=== PATIENT | female | born 1960 | race Caucasian/White ===

== ENCOUNTER 2017-05-17 13:13 | Emergency (ER) | payer MEDICARE, BC ==
[~2017-05-17 13:13] MED LIST: DICYCLOMINE; TPN; VICODIN ES TAB1 EACH; Z DIFLUCAN; Z REMERON; Z REMERON PO; Z.0.ALLEGRA60 MG; Z.0.ATIVAN2 MG PO; Z.0.CARAFATE1 GM/10 PO; Z.0.CYMBALTA30 MG PO; Z.0.DIOVAN80 MG PO; Z.0.FLEXERIL10 MG; Z.0.LOVASTATIN20 MG PO; Z.0.NORVASC10 MG; Z.0.PHENERGAN25 M1; Z.0.TOPAMAX50 MG PO; Z.0.ZOFRAN4 MG; [UNRECOGNIZED DRUG - OTHER]
--- OUTSIDE RECORDS SUMMARY | 2017-05-17 13:16 | XMS REPORT ---
Author Author [facility] Address Unknown Phone Unavailable Care Team Providers Care Pattern Technician Name Role Phone JOSIE HERNANDEZ Unavailable Unavailable JORGE HERNANDEZ Unavailable Unavailable Problems This patient has no known problems. Allergies, Adverse Reactions, Alerts This patient has no known allergies or adverse reactions. Medications This patient has no known medications. Results Test Description Test Time Test Comments Text Results Atomic Results Result Comments US RENAL RETROPERITONEAL COMP [place] [address] Patient Name: FELICITA CERON MR #: [id number] : 1960 Age/Sex: 56/F Req #: [id number] [facility] Physician: Ordered by: JOSIE HERNANDEZ DO Report #: [id number] Location: US Room/Bed: Procedure: [id number] US/US RENAL RETROPERITONEAL COMP Exam Date: 12/05/16 Exam Time: 1602 REPORT STATUS: Signed PROCEDURE : US RETROPERITONEAL ( KIDNEY ). COMPARISON: CT abdomen/pelvis 12/23/13. INDICATIONS: cystitis and hematuria TECHNIQUE: Rogers-scale and color sonographic images of the bilateral kidneys and bladder where obtained in transverse and longitudinal planes. FINDINGS: RIGHT KIDNEY: Absent. No mass in the nephrectomy bed. LEFT KIDNEY: Measures 11.2 cm in length. Cysts: None Solid masses: None Stones: None Hydronephrosis: None Echogenicity: None Perinephric fluid collection: None Bladder: Under distended but otherwise normal. The left ureteral jet is visualized. The right ureteral jet is not visualized. No free fluid in the pelvis. Survey images of the liver demonstrate no focal abnormality. CONCLUSION: Normal sonographic appearance of the left kidney. Right nephrectomy. No sonographic abnormalities of the bladder. Dictated by: Case Damon M.D. on 12/05/2016 at 17:38 Electronically approved by: Case Damon M.D. on 12/05/2016 at 17:38 Dictated By: CASE DAMON MD 37 Transcribed By: ANJANA on 12/05/161737 COPY TO: JOSIE HERNANDEZ DO MAMMOGRAPHY DIGITAL DX BILAT [place] [address] Patient Name: FELICITA CERON MR #: [id number] : 1960 Age/Sex: 56/F Req #: [id number] Adm Physician: Ordered by: HERNANDEZ ANDREW DO Report #: [id number] Location: MAMMO Room/Bed: Procedure: [id number] MG/MAMMOGRAPHY DIGITAL DX BILAT Exam Date: 06/02/16 Exam Time: 1125 REPORT STATUS: Signed THIS REPORT HAS BEEN AMENDED. #[id number] - [id number] #BILATERAL DIGITAL DIAGNOSTIC MAMMOGRAM WITH CAD: 06/02/2016 No prior exams were available for comparison. Current study contains 5 films. The tissue of both breasts is predominantly fatty. Current study was also evaluated with a Computer Aided Detection (CAD) system. There is an implantable port present overlying the left upper breast/chest wall. No significant masses, calcifications, or other findings are seen in either breast. IMPRESSION: BENIGN There is no mammographic evidence of malignancy. A 1 year screening mammogram is recommended. The patient will be notified by letter of the results. Elvis Martinez Jr., D.O. cw/:06/02/2016 13:08:38 [employer]: Kamille CHUNG)([place]), [facility] letter sent: Normal Exam Mammogram BI-RADS: 2 Benign AMENDMENT : 09/26/2016 Elvis Martinez Jr., D.O. - Comparison to outside mammograms dated 06/08/2015 from [facility] [place] is now possible as they have become available. There is no significant interval change from the old studies. There is no evidence of malignancy. Amended BI-RADS: 2 Benign letter sent: Compared to Prior B9 Dictated By: ELVIS MARTINEZ DO 1308 Transcribed By: KRISTOFER on 09/26/16 1425 COPY TO: JORGE HERNANDEZ DO
[2017-05-17] MEDS ORDERED: PROMETHAZINE HCL (IM) 25 MG/ML VIAL IM ONE (13:30)
[2017-05-17] MEDS ORDERED: SODIUM CHLORIDE 0.9% 1000ML 1,000 ML ONE (13:30)
[2017-05-17] MEDS ORDERED: KETOROLAC TROMETHAMINE 30 MG/ML VIAL IV ONE (13:30)
[2017-05-17] MEDS ORDERED: TEGRETOL200 MG PO (14:53)
[2017-05-17] MEDS ORDERED: ASPIR 8181 MG (15:25)
[2017-05-17] MEDS ORDERED: PROVENTIL HFA6.7 GM (15:25)
[2017-05-17] MEDS ORDERED: B-12500 MCG (15:25)
[2017-05-17] MEDS ORDERED: normal saline (15:25)
[2017-05-17] MEDS ORDERED: iron (15:25)
[2017-05-17] MEDS ORDERED: PLAQUENIL200 MG PO (15:25)
[2017-05-17 15:32] VITALS: BP 127/69
== END 2017-05-17 15:05 | disposition home or self-care (01) ==
LOC: FSED 13:13
DX: G43.001 Migraine without aura, not intractable, with status migrainosus (principal); R11.0 Nausea; I10 Essential (primary) hypertension
CPT/HCPCS: 96360; 96374; 99283; J2550; J7030

== ENCOUNTER → 2017-07-07 | Outpatient (CLI) | payer MEDICARE, BC ==
[~2017-07-07] MED LIST changes: +ASPIR 8181 MG; +B-12500 MCG; +PLAQUENIL200 MG PO; +PROVENTIL HFA6.7 GM; +TEGRETOL200 MG PO; +iron; +normal saline
== END ==
LOC: MAMMO 13:42
PROVIDERS: ATTEND Family Medicine
DX: Z12.31 Encounter for screening mammogram for malignant neoplasm of breast (principal)
CPT/HCPCS: 77067

== ENCOUNTER 2017-10-26 17:38 | Inpatient (IN) | payer MEDICARE, BC ==
[~2017-10-26] VITALS: Ht 162.6 cm; Wt 7.3 kg
[~2017-10-26 17:38] MED LIST changes: -Z REMERON
[2017-10-26 20:51] VITALS: BP 172/83
[2017-10-26] MEDS ORDERED: MEROPENEM 1GRAM 1 GM in SODIUM CHLORIDE 0.9% 100 ML 100 ML IV SCH (21:00)
[2017-10-26 21:18] LABS: BILIRUBIN,URINE 1+ (NEGATIVE); CLARITY,URINE SL CLOUDY (CLEAR); COLOR,URINE ORANGE (YELLOW); KETONES,URINE TRACE (NEGATIVE); LEUKOCYTE ESTERASE ,URINE TRACE (NEGATIVE); NITRITE,URINE POSITIVE (NEGATIVE); PROTEIN,URINE DIPSTICK 1+ (NEGATIVE); URINE UROBILINOGEN 8 mg/dL (0.2 - 1)
[2017-10-26 21:29] LABS: BACTERIA,URINE MANY /HPF; EPITHELIAL CELLS,URINE FEW /LPF; WBC,URINE (MAN) 0-5 /HPF (0-5)
[2017-10-26 21:30] VITALS: BP 133/88
[2017-10-26 21:38] VITALS: BP 172/83
[2017-10-26 21:39] LABS: BASOPHILS % 0.4 % (0.0-1.0); EOSINOPHILS # (AUTO) 0.2 (0.0-0.4); EOSINOPHILS % 2.8 % (0.0-6.0); HEMATOCRIT 31.2 % (34.2-44.1); HEMOGLOBIN 9.9 g/dL (12.0-16.0); LYMPHOCYTES # (AUTO) 1.3 (1.0-3.2); LYMPHOCYTES % 19.6 % (18.0-39.1); MEAN CORPUSCULAR HEMOGLOBIN 27.3 pg (28-32); MEAN CORPUSCULAR HGB CONC 31.7 g/dL (31-35); MEAN CORPUSCULAR VOLUME 86.2 fL (81-99); MONOCYTES # (AUTO) 0.6 (0.2-0.8); MONOCYTES % 8.1 % (4.4-11.3); NEUTROPHILS # (AUTO) 4.6 (2.1-6.9); NEUTROPHILS % 68.5 % (38.7-80.0); PLATELET COUNT 451 x10e3/uL (140-360); RED BLOOD COUNT 3.62 x10e6/uL (3.6-5.1); RED CELL DISTRIBUTION WIDTH 13.2 % (11.7-14.4)
[2017-10-26 21:56] LABS: ALANINE AMINOTRANSFERASE 15 IU/L (0-55); ALBUMIN 2.7 g/dL (3.5-5.0); ALBUMIN/GLOBULIN RATIO 0.7 (0.8-2.0); ALKALINE PHOSPHATASE 121 IU/L (40-150); ANION GAP 12.7 mmol/L (8-16); BLOOD UREA NITROGEN 13 mg/dL (7-26); BUN/CREATININE RATIO 15 (6-25); CALCIUM 9.2 mg/dL (8.4-10.2); CARBON DIOXIDE 26 mmol/L (22-29); CHLORIDE 100 mmol/L (98-107); CREATININE, SERUM 0.86 mg/dL (0.57-1.11); EST GLOMERULAR FILTRATION RATE > 60 ML/MIN (60-); GLUCOSE 84 mg/dL (74-118); POTASSIUM 3.7 mmol/L (3.5-5.1); SODIUM 135 mmol/L (136-145)
[2017-10-26] MEDS ORDERED: ATIVAN2 MG PO (21:56)
[2017-10-26] MEDS ORDERED: LOSARTAN POTASS25 MG PO (21:56)
[2017-10-26 22:00] VITALS: BP 172/83
[2017-10-26 22:32] LABS: ERYTHROCYTE SEDIMENTATION RATE 73 mm/hr (0-20)
[2017-10-26] MEDS: MEROPENEM 1 GM VIAL IV SCH (23:29)
[2017-10-27] VITALS (10 sets, daily range): BP systolic 97–142; BP diastolic 50–88
[2017-10-27] MEDS ORDERED: NON-FORMULARY MEDICATION (Lorazepam (Ativan) 2 MG) PO SCH (00:45)
[2017-10-27] MEDS ORDERED: DICYCLOMINE HCL 10 MG CAP PO PRN (05:15)
[2017-10-27] MEDS ORDERED: ONDANSETRON HCL 4 MG ORAL DISINTEGRATING TAB PO PRN (05:15)
[2017-10-27] MEDS ORDERED: CARBAMAZEPINE 200 MG TAB PO SCH (09:00)
[2017-10-27] MEDS: LOSARTAN POTASSIUM 25 MG TAB PO SCH ×2 (09:09→17:13)
[2017-10-27] MEDS: ASPIRIN 81 MG CHEW TAB PO SCH (09:09)
[2017-10-27] MEDS: MEROPENEM 1 GM VIAL IV SCH ×2 (09:09→20:53)
[2017-10-27] MEDS: HYDROXYCHLOROQUINE SULFATE 200 MG TAB PO SCH (09:10)
[2017-10-27] MEDS: AMLODIPINE BESYLATE 10 MG TAB PO SCH (09:10)
[2017-10-27] MEDS: CARBAMAZEPINE 100 MG TAB PO SCH ×2 (09:10→17:13)
[2017-10-27] MEDS: SIMVASTATIN 20 MG TAB PO SCH (09:10)
[2017-10-27] MEDS: HYDROCODONE/APAP 10MG-325MG TAB PO PRN ×2 (11:15→19:30)
--- NOTE | 2017-10-27 15:20 | Consultation ---
DATE OF CONSULTATION: REASON FOR CONSULTATION: UTI and pyelonephritis. HISTORY OF PRESENT ILLNESS: This patient who is well known to me. She is a 57-year-old female. She came to my office yesterday complaining of fever and chills, nausea, not feeling well. The patient who has history of recurrent UTI before. She is coming with above complaint. The patient said that she is feeling really bad. When she was in my office, she was bit hypotensive, sent to be admitted. The patient has been on oral antibiotic, ciprofloxacin before, recently without any improvement. So, patient was sent to the emergency room. The patient is currently being admitted. She is lying in bed comfortably. She just feeling nauseous and having pain. PAST MEDICAL HISTORY: Hypertension, antiphospholipid lipid syndrome, Hewitt's esophageal disease, gastroparesis, and scleroderma. PAST SURGICAL HISTORY: , cholecystectomy, hysterectomy, hip placement. ALLERGIES: CEPHALOSPORINS, PENICILLIN, AND SULFA. SOCIAL HISTORY: There is no smoking, drug abuse, or alcohol abuse. . FAMILY HISTORY: Noncontributory. REVIEW OF SYSTEMS: Significant for pain in the lower part of the abdomen. Urgency and frequency, and urine looked dark she said. At present time, fourteen-point review of system all within normal limits except for what was mentioned above. MEDICATION: List reviewed. Her chart reviewed. I have been seeing this patient since December 2016 with recurrent UTI. HOME MEDICATION LIST: She is currently on Tegretol, Zocor, Plaquenil, Norvasc, aspirin, Cozaar, and Zofran. LABORATORY DATA: White count 6.78, hemoglobin 9.9, and her platelet 158. Sodium 135, potassium 3.7, and creatinine 0.86. PHYSICAL EXAMINATION GENERAL: She is currently alert and oriented. Does not seem to be in acute distress. VITALS: Stable. Currently afebrile. HEENT: She is not icteric. NECK: Supple. CHEST: Clear. HEART: S1 and S2. No murmur. ABDOMEN: Soft. Bowel sounds present. No tenderness. EXTREMITIES: No edema. IMPRESSION: Concern about pyelonephritis, urinary tract infection in a patient who have scleroderma, allergic to several antibiotics. We put her on meropenem. Obtain urine cultures and blood cultures. Recheck CBC. Recheck Chem panel. For dehydration, we will give normal saline at 50 mL an hour. Other medical problems are stable. Continue all home medication and diet as tolerated. We will follow. Job#: [id number] VAS
[2017-10-27] MEDS: SODIUM CHLORIDE 0.9% 1000ML 1,000 ML IV SCH (16:28)
[2017-10-27] MEDS: VANCOMYCIN 1GM/NS 250 ML 250 ML IV SCH (16:28)
[2017-10-27] MEDS: DULOXETINE HCL 30 MG DELAYED RELEASE PO SCH (20:53)
[2017-10-27] MEDS: MIRTAZAPINE 15 MG TAB PO SCH (20:53)
[2017-10-28] VITALS (7 sets, daily range): BP systolic 119–135; BP diastolic 56–76
[2017-10-28] MEDS: VANCOMYCIN 1GM/NS 250 ML 250 ML IV SCH ×2 (03:21→17:25)
[2017-10-28] MEDS: MEROPENEM 1 GM VIAL IV SCH ×2 (09:41→21:00)
[2017-10-28] MEDS: SODIUM CHLORIDE 0.9% 1000ML 1,000 ML IV SCH ×3 (09:41→21:19)
[2017-10-28] MEDS: CARBAMAZEPINE 100 MG TAB PO SCH ×2 (09:53→16:25)
[2017-10-28] MEDS: HYDROXYCHLOROQUINE SULFATE 200 MG TAB PO SCH (09:53)
[2017-10-28] MEDS: SIMVASTATIN 20 MG TAB PO SCH (09:53)
[2017-10-28] MEDS: AMLODIPINE BESYLATE 10 MG TAB PO SCH (09:53)
[2017-10-28] MEDS: LOSARTAN POTASSIUM 25 MG TAB PO SCH ×2 (09:53→16:25)
[2017-10-28] MEDS: ASPIRIN 81 MG CHEW TAB PO SCH (09:53)
[2017-10-28] MEDS: ACETAMINOPHEN 325 MG TAB PO PRN (09:55)
[2017-10-28] MEDS: HYDROCODONE/APAP 10MG-325MG TAB PO PRN ×2 (09:55→16:38)
[2017-10-28] MEDS: MIRTAZAPINE 15 MG TAB PO SCH (21:00)
[2017-10-28] MEDS: DULOXETINE HCL 30 MG DELAYED RELEASE PO SCH (21:00)
[2017-10-29] VITALS: BP 113/58
[2017-10-29] MEDS: VANCOMYCIN 1GM/NS 250 ML 250 ML IV SCH ×2 (03:42→15:56)
[2017-10-29 04:00] VITALS: BP 124/58
[2017-10-29 08:00] VITALS: BP 127/60
[2017-10-29] MEDS: HYDROCODONE/APAP 10MG-325MG TAB PO PRN ×2 (09:28→22:19)
[2017-10-29] MEDS: LOSARTAN POTASSIUM 25 MG TAB PO SCH ×2 (09:42→17:10)
[2017-10-29] MEDS: MEROPENEM 1 GM VIAL IV SCH ×2 (09:42→21:00)
[2017-10-29] MEDS: AMLODIPINE BESYLATE 10 MG TAB PO SCH (09:42)
[2017-10-29] MEDS: CARBAMAZEPINE 100 MG TAB PO SCH ×2 (09:42→17:10)
[2017-10-29] MEDS: HYDROXYCHLOROQUINE SULFATE 200 MG TAB PO SCH (09:42)
[2017-10-29] MEDS: ASPIRIN 81 MG CHEW TAB PO SCH (09:42)
[2017-10-29] MEDS: SIMVASTATIN 20 MG TAB PO SCH (09:43)
[2017-10-29] MEDS ORDERED: CEFTRIAXONE SOD 1 GM VIAL IV SCH (11:45)
[2017-10-29 12:00] VITALS: BP 121/59
[2017-10-29 16:00] VITALS: BP 132/74
[2017-10-29 20:00] VITALS: BP 128/74
[2017-10-29] MEDS: DULOXETINE HCL 30 MG DELAYED RELEASE PO SCH (21:00)
[2017-10-29] MEDS: MIRTAZAPINE 15 MG TAB PO SCH (21:00)
[2017-10-29] MEDS: SODIUM CHLORIDE 0.9% 1000ML 1,000 ML IV SCH (22:19)
[2017-10-30 04:00] VITALS: BP 109/55
[2017-10-30] MEDS: VANCOMYCIN 1GM/NS 250 ML 250 ML IV SCH ×2 (04:00→16:58)
[2017-10-30 05:49] LABS: BASOPHILS % 0.8 % (0.0-1.0); EOSINOPHILS # (AUTO) 0.2 (0.0-0.4); EOSINOPHILS % 5.6 % (0.0-6.0); HEMATOCRIT 26.2 % (34.2-44.1); HEMOGLOBIN 8.1 g/dL (12.0-16.0); LYMPHOCYTES # (AUTO) 0.9 (1.0-3.2); LYMPHOCYTES % 24.7 % (18.0-39.1); MEAN CORPUSCULAR HEMOGLOBIN 26.8 pg (28-32); MEAN CORPUSCULAR HGB CONC 30.9 g/dL (31-35); MEAN CORPUSCULAR VOLUME 86.8 fL (81-99); MONOCYTES # (AUTO) 0.4 (0.2-0.8); MONOCYTES % 10.5 % (4.4-11.3); NEUTROPHILS # (AUTO) 2.2 (2.1-6.9); NEUTROPHILS % 57.9 % (38.7-80.0); PLATELET COUNT 356 x10e3/uL (140-360); RED BLOOD COUNT 3.02 x10e6/uL (3.6-5.1); RED CELL DISTRIBUTION WIDTH 13.3 % (11.7-14.4)
[2017-10-30 06:20] LABS: ANION GAP 10.4 mmol/L (8-16); BLOOD UREA NITROGEN 9 mg/dL (7-26); BUN/CREATININE RATIO 14 (6-25); CALCIUM 8.2 mg/dL (8.4-10.2); CARBON DIOXIDE 27 mmol/L (22-29); CHLORIDE 110 mmol/L (98-107); CREATININE, SERUM 0.65 mg/dL (0.57-1.11); EST GLOMERULAR FILTRATION RATE > 60 ML/MIN (60-); GLUCOSE 83 mg/dL (74-118); POTASSIUM 3.4 mmol/L (3.5-5.1); SODIUM 144 mmol/L (136-145)
[2017-10-30 07:15] VITALS: BP 120/59
[2017-10-30 08:00] VITALS: BP 120/59
[2017-10-30] MEDS: HYDROXYCHLOROQUINE SULFATE 200 MG TAB PO SCH (09:15)
[2017-10-30] MEDS: AMLODIPINE BESYLATE 10 MG TAB PO SCH (09:15)
[2017-10-30] MEDS: ASPIRIN 81 MG CHEW TAB PO SCH (09:15)
[2017-10-30] MEDS: SIMVASTATIN 20 MG TAB PO SCH (09:15)
[2017-10-30] MEDS: CARBAMAZEPINE 100 MG TAB PO SCH ×2 (09:15→17:04)
[2017-10-30] MEDS: MEROPENEM 1 GM VIAL IV SCH ×2 (09:15→21:00)
[2017-10-30] MEDS: LOSARTAN POTASSIUM 25 MG TAB PO SCH ×2 (09:15→17:04)
[2017-10-30 12:02] VITALS: BP 146/63
[2017-10-30] MEDS: HYDROCODONE/APAP 10MG-325MG TAB PO PRN ×2 (13:15→20:25)
[2017-10-30] MEDS: SODIUM CHLORIDE 0.9% 1000ML 1,000 ML IV SCH (13:16)
[2017-10-30 16:08] VITALS: BP 137/62
[2017-10-30 20:00] VITALS: BP 129/72
[2017-10-30] MEDS: MIRTAZAPINE 15 MG TAB PO SCH (21:00)
[2017-10-30] MEDS: DULOXETINE HCL 30 MG DELAYED RELEASE PO SCH (21:00)
[2017-10-31] VITALS (8 sets, daily range): BP systolic 110–140; BP diastolic 63–73
[2017-10-31] MEDS: SODIUM CHLORIDE 0.9% 1000ML 1,000 ML IV SCH ×2 (03:28→18:06)
[2017-10-31] MEDS: VANCOMYCIN 1GM/NS 250 ML 250 ML IV SCH (03:47)
[2017-10-31] MEDS: CARBAMAZEPINE 100 MG TAB PO SCH ×2 (08:29→16:32)
[2017-10-31] MEDS: SIMVASTATIN 20 MG TAB PO SCH (08:29)
[2017-10-31] MEDS: MEROPENEM 1 GM VIAL IV SCH ×2 (08:29→20:09)
[2017-10-31] MEDS: LOSARTAN POTASSIUM 25 MG TAB PO SCH ×2 (08:29→16:32)
[2017-10-31] MEDS: AMLODIPINE BESYLATE 10 MG TAB PO SCH (08:29)
[2017-10-31] MEDS: ASPIRIN 81 MG CHEW TAB PO SCH (08:29)
[2017-10-31] MEDS: HYDROXYCHLOROQUINE SULFATE 200 MG TAB PO SCH (08:29)
[2017-10-31] MEDS: HYDROCODONE/APAP 10MG-325MG TAB PO PRN (18:06)
[2017-10-31] MEDS: MIRTAZAPINE 15 MG TAB PO SCH (20:09)
[2017-10-31] MEDS: DULOXETINE HCL 30 MG DELAYED RELEASE PO SCH (20:09)
[2017-10-31] MEDS: LORAZEPAM 1 MG TAB PO PRN (22:00)
[2017-11-01] VITALS (7 sets, daily range): BP systolic 106–132; BP diastolic 54–68
[2017-11-01] MEDS: VANCOMYCIN 750MG/NS 150ML IVPB 150 ML IV SCH ×2 (03:21→16:00)
[2017-11-01] MEDS: SODIUM CHLORIDE 0.9% 1000ML 1,000 ML IV SCH ×2 (06:02→18:24)
[2017-11-01] MEDS: ACETAMINOPHEN 325 MG TAB PO PRN (06:17)
[2017-11-01 07:11] LABS: ALANINE AMINOTRANSFERASE 39 IU/L (0-55); ALBUMIN 2.1 g/dL (3.5-5.0); ALBUMIN/GLOBULIN RATIO 0.7 (0.8-2.0); ALKALINE PHOSPHATASE 134 IU/L (40-150); ANION GAP 10.8 mmol/L (8-16); CALCIUM 8.3 mg/dL (8.4-10.2); CARBON DIOXIDE 29 mmol/L (22-29); CHLORIDE 104 mmol/L (98-107); CREATININE, SERUM 0.64 mg/dL (0.57-1.11); EST GLOMERULAR FILTRATION RATE > 60 ML/MIN (60-); GLUCOSE 81 mg/dL (74-118); POTASSIUM 3.8 mmol/L (3.5-5.1); SODIUM 140 mmol/L (136-145)
[2017-11-01 07:22] LABS: BLOOD UREA NITROGEN 8 mg/dL (7-26); BUN/CREATININE RATIO 13 (6-25)
[2017-11-01 07:23] LABS: BASOPHILS % 0.3 % (0.0-1.0); EOSINOPHILS # (AUTO) 0.3 (0.0-0.4); EOSINOPHILS % 6.6 % (0.0-6.0); HEMATOCRIT 26.2 % (34.2-44.1); HEMOGLOBIN 8.2 g/dL (12.0-16.0); LYMPHOCYTES % 27.1 % (18.0-39.1); MEAN CORPUSCULAR HGB CONC 31.3 g/dL (31-35); MEAN CORPUSCULAR VOLUME 86.2 fL (81-99); MONOCYTES # (AUTO) 0.4 (0.2-0.8); MONOCYTES % 9.6 % (4.4-11.3); NEUTROPHILS # (AUTO) 2.1 (2.1-6.9); NEUTROPHILS % 55.9 % (38.7-80.0); PLATELET COUNT 358 x10e3/uL (140-360); RED BLOOD COUNT 3.04 x10e6/uL (3.6-5.1); RED CELL DISTRIBUTION WIDTH 13.4 % (11.7-14.4)
[2017-11-01] MEDS: HYDROXYCHLOROQUINE SULFATE 200 MG TAB PO SCH (08:42)
[2017-11-01] MEDS: CARBAMAZEPINE 100 MG TAB PO SCH ×2 (08:42→16:35)
[2017-11-01] MEDS: SIMVASTATIN 20 MG TAB PO SCH (08:42)
[2017-11-01] MEDS: AMLODIPINE BESYLATE 10 MG TAB PO SCH (08:43)
[2017-11-01] MEDS: ASPIRIN 81 MG CHEW TAB PO SCH (08:43)
[2017-11-01] MEDS: LOSARTAN POTASSIUM 25 MG TAB PO SCH ×2 (08:43→16:35)
[2017-11-01] MEDS: MEROPENEM 1 GM VIAL IV SCH ×2 (08:43→20:08)
[2017-11-01] MEDS: HYDROCODONE/APAP 10MG-325MG TAB PO PRN ×2 (13:38→20:36)
[2017-11-01] MEDS: DULOXETINE HCL 30 MG DELAYED RELEASE PO SCH (20:08)
[2017-11-01] MEDS: MIRTAZAPINE 15 MG TAB PO SCH (20:08)
[2017-11-01] MEDS: LORAZEPAM 1 MG TAB PO PRN (22:07)
[2017-11-02] VITALS (7 sets, daily range): BP systolic 96–134; BP diastolic 50–76
[2017-11-02] MEDS: SODIUM CHLORIDE 0.9% 1000ML 1,000 ML IV SCH ×2 (04:20→16:21)
[2017-11-02] MEDS: VANCOMYCIN 750MG/NS 150ML IVPB 150 ML IV SCH ×2 (04:20→16:16)
[2017-11-02] MEDS: MEROPENEM 1 GM VIAL IV SCH ×2 (08:46→20:43)
[2017-11-02] MEDS: LOSARTAN POTASSIUM 25 MG TAB PO SCH ×2 (08:46→16:02)
[2017-11-02] MEDS: AMLODIPINE BESYLATE 10 MG TAB PO SCH (08:46)
[2017-11-02] MEDS: ASPIRIN 81 MG CHEW TAB PO SCH (08:46)
[2017-11-02] MEDS: CARBAMAZEPINE 100 MG TAB PO SCH ×2 (08:46→16:16)
[2017-11-02] MEDS: HYDROXYCHLOROQUINE SULFATE 200 MG TAB PO SCH (08:46)
[2017-11-02] MEDS: HYDROCODONE/APAP 10MG-325MG TAB PO PRN ×2 (11:31→18:45)
[2017-11-02] MEDS: SIMVASTATIN 20 MG TAB PO SCH (20:43)
[2017-11-02] MEDS: MIRTAZAPINE 15 MG TAB PO SCH (20:43)
[2017-11-02] MEDS: DULOXETINE HCL 30 MG DELAYED RELEASE PO SCH (20:43)
[2017-11-02] MEDS: LORAZEPAM 1 MG TAB PO PRN (22:32)
[2017-11-03] VITALS (8 sets, daily range): BP systolic 115–142; BP diastolic 56–73
[2017-11-03] MEDS: VANCOMYCIN 750MG/NS 150ML IVPB 150 ML IV SCH ×2 (04:01→15:50)
[2017-11-03] MEDS: SODIUM CHLORIDE 0.9% 1000ML 1,000 ML IV SCH ×2 (06:31→20:41)
[2017-11-03] MEDS: CARBAMAZEPINE 100 MG TAB PO SCH ×2 (08:40→16:53)
[2017-11-03] MEDS: ASPIRIN 81 MG CHEW TAB PO SCH (08:40)
[2017-11-03] MEDS: LOSARTAN POTASSIUM 25 MG TAB PO SCH ×2 (08:40→16:53)
[2017-11-03] MEDS: AMLODIPINE BESYLATE 10 MG TAB PO SCH (08:40)
[2017-11-03] MEDS: MEROPENEM 1 GM VIAL IV SCH ×2 (08:40→20:40)
[2017-11-03 09:01] LABS: ANION GAP 12.8 mmol/L (8-16); BLOOD UREA NITROGEN 7 mg/dL (7-26); BUN/CREATININE RATIO 11 (6-25); CALCIUM 8.6 mg/dL (8.4-10.2); CARBON DIOXIDE 29 mmol/L (22-29); CHLORIDE 104 mmol/L (98-107); CREATININE, SERUM 0.65 mg/dL (0.57-1.11); EST GLOMERULAR FILTRATION RATE > 60 ML/MIN (60-); GLUCOSE 80 mg/dL (74-118); POTASSIUM 3.8 mmol/L (3.5-5.1); SODIUM 142 mmol/L (136-145)
[2017-11-03] MEDS: CEFUROXIME AXETIL 250 MG TAB PO SCH (16:52)
[2017-11-03] MEDS: DULOXETINE HCL 30 MG DELAYED RELEASE PO SCH (20:40)
[2017-11-03] MEDS: MIRTAZAPINE 15 MG TAB PO SCH (20:40)
[2017-11-03] MEDS: HYDROCODONE/APAP 10MG-325MG TAB PO PRN (20:40)
[2017-11-03] MEDS: SIMVASTATIN 20 MG TAB PO SCH (20:41)
[2017-11-04] VITALS (7 sets, daily range): BP systolic 108–122; BP diastolic 53–69
[2017-11-04] MEDS: VANCOMYCIN 750MG/NS 150ML IVPB 150 ML IV SCH (05:02)
[2017-11-04] MEDS: CARBAMAZEPINE 100 MG TAB PO SCH ×2 (08:39→17:07)
[2017-11-04] MEDS: AMLODIPINE BESYLATE 10 MG TAB PO SCH (08:39)
[2017-11-04] MEDS: ASPIRIN 81 MG CHEW TAB PO SCH (08:39)
[2017-11-04] MEDS: CEFUROXIME AXETIL 250 MG TAB PO SCH ×2 (08:39→17:07)
[2017-11-04] MEDS: LOSARTAN POTASSIUM 25 MG TAB PO SCH ×2 (08:39→17:07)
[2017-11-04] MEDS: HYDROCODONE/APAP 10MG-325MG TAB PO PRN ×2 (08:40→15:08)
[2017-11-04] MEDS: MEROPENEM 1 GM VIAL IV SCH ×2 (08:41→20:30)
[2017-11-04] MEDS: SODIUM CHLORIDE 0.9% 1000ML 1,000 ML IV SCH (09:45)
[2017-11-04] MEDS: MIRTAZAPINE 15 MG TAB PO SCH (20:30)
[2017-11-04] MEDS: SIMVASTATIN 20 MG TAB PO SCH (20:30)
[2017-11-04] MEDS: DULOXETINE HCL 30 MG DELAYED RELEASE PO SCH (20:30)
[2017-11-05] VITALS: BP 99/56
[2017-11-05 04:00] VITALS: BP 118/57
[2017-11-05] MEDS: HYDROCODONE/APAP 10MG-325MG TAB PO PRN (05:53)
[2017-11-05 07:25] VITALS: BP 124/65
[2017-11-05 07:42] VITALS: BP 124/65
[2017-11-05] MEDS: MEROPENEM 1 GM VIAL IV SCH (09:41)
[2017-11-05] MEDS: CEFUROXIME AXETIL 250 MG TAB PO SCH (09:41)
[2017-11-05] MEDS: ASPIRIN 81 MG CHEW TAB PO SCH (09:41)
[2017-11-05] MEDS: AMLODIPINE BESYLATE 10 MG TAB PO SCH (09:42)
[2017-11-05] MEDS: CARBAMAZEPINE 100 MG TAB PO SCH (09:42)
[2017-11-05] MEDS: LOSARTAN POTASSIUM 25 MG TAB PO SCH (09:42)
[2017-11-05] MEDS ORDERED: CEFUROXIME250 MG PO (11:05)
[2017-11-05] MEDS ORDERED: DIFLUCAN100 MG (11:06)
[2017-11-05] MEDS ORDERED: VANCOMYCIN 1GM/NS 250 ML 250 ML IV SCH (16:00)
--- NOTE | 2017-11-06 09:54 | Discharge Summary ---
DISCHARGE DIAGNOSIS: Sepsis secondary to urinary tract infection with Klebsiella. HISTORY OF PRESENT ILLNESS AND HOSPITAL COURSE: See the hospital chart for full details. The patient has multiple allergies, so she was brought in by Dr. Coombs due to urinary tract infection that was refractory to outpatient therapy. She was brought in and placed on IV antibiotics. Near the time of discharge, she was actually switched over to p.o. Ceftin, which she was able to actually tolerate. She was discharged home with p.o. Ceftin to finish out the course of her treatment. Please see the hospital chart for full details. CODEY CARSON MD Job#: [id number]
== END 2017-11-05 11:28 | disposition home or self-care (01) | DRG 872 ==
LOC: ER 17:38 → MED/SURG3 20:33 → ER 22:51 → MED/SURG3 22:53
PROVIDERS: ADMIT Internal Medicine; ATTEND Internal Medicine
DX: A41.9 Sepsis, unspecified organism (principal); N39.0 Urinary tract infection, site not specified; D68.61 Antiphospholipid syndrome; M34.9 Systemic sclerosis, unspecified; E86.0 Dehydration; B96.1 Klebsiella pneumoniae [K. pneumoniae] as the cause of diseases classified elsewhere; I10 Essential (primary) hypertension; E78.00 Pure hypercholesterolemia, unspecified; D64.9 Anemia, unspecified; G89.29 Other chronic pain; F41.9 Anxiety disorder, unspecified; Z79.82 Long term (current) use of aspirin; Z88.0 Allergy status to penicillin; Z88.2 Allergy status to sulfonamides; Z88.8 Allergy status to other drugs, medicaments and biological substances; Z88.1 Allergy status to other antibiotic agents; Z91.041 Radiographic dye allergy status
CPT/HCPCS: 36415; 80048; 80053; 80202; 81001; 83735; 85025; 85651; 86140; 87040; 87071; 87086; 87186; 87205; 96361; J2185; J3370; J7030

== ENCOUNTER → 2018-05-18 | Outpatient (CLI) | payer MEDICARE, BC ==
[~2018-05-18] MED LIST changes: +ATIVAN2 MG PO; +CEFUROXIME250 MG PO; +DIFLUCAN100 MG; +LOSARTAN POTASS25 MG PO
--- NOTE | 2018-05-18 17:39 | Diagnostic Imaging Report ---
EXAM: CT Abdomen and Pelvis without contrast INDICATION: Urinary tract infection, history of left-sided renal stones. COMPARISON: Report from CT thoracic spine dated 02/28/2015, although images are not available for review at the time of this dictation. TECHNIQUE: Abdomen and pelvis were scanned utilizing a multidetector helical scanner from the lung base to the pubic symphysis without administration of IV contrast. Absence of intravenous contrast decreases sensitivity for detection of focal lesions and vascular pathology. Coronal and sagittal reformations were obtained. Renal stone protocol was performed. RADIATION DOSE: Total DLP: 454.7 mGy*cm Dose modulation, iterative reconstruction, and/or weight based adjustment of the mA/kV was utilized to reduce the radiation dose to as low as reasonably achievable. COMPLICATIONS: None FINDINGS: LINES and TUBES: None. LOWER THORAX: Patchy dependent atelectasis. HEPATOBILIARY: No evidence of focal hepatic lesions. No biliary ductal dilation. Status post cholecystectomy. SPLEEN: No splenomegaly. PANCREAS: No evidence of focal masses or ductal dilatation. ADRENALS: No adrenal nodules KIDNEYS/URETERS: Status post right nephrectomy. No hydronephrosis. No cystic or solid mass lesions. No evidence of renal stone. GI TRACT: There is dilation of the distal esophagus. There are postsurgical changes involving the stomach with possible wall thickening (series 3, image 18). There is a large hiatal hernia. There is a jejunojejunal anastomosis within the mid abdomen. No evidence of bowel obstruction. Per the patient, the appendix is surgically absent. PELVIC ORGANS/BLADDER: Status post hysterectomy. Streak artifact limits evaluation of the pelvis including the left distal ureter and bladder. LYMPH NODES: No lymphadenopathy. VESSELS: There are scattered atherosclerotic calcifications in the aorta and branch vessels. PERITONEUM / RETROPERITONEUM: No free air or fluid. BONES/SOFT TISSUES: Diffuse osteopenia. Mild age-indeterminate loss of vertebral body height at L2 and L4. Partially seen left total hip arthroplasty and post ORIF findings in the right proximal femur. There are postsurgical changes involving the anterior abdominal wall with likely dystrophic calcifications. IMPRESSION: No evidence of renal stone or hydronephrosis. Of note, surgical hardware streak artifact limits evaluation for distal ureteral stone in the pelvis, however there is no evidence of hydronephrosis. Hiatal hernia with postsurgical changes of the stomach with associated possible gastric wall thickening. Dilation of the distal esophagus. Suggest endoscopy for further evaluation. Mild age indeterminate loss of vertebral body height at L2 and L4. Signed by: Dr. Rachel Mccormick MD on 05/18/2018 5:36 PM
== END ==
LOC: CT 14:41
PROVIDERS: ATTEND Internal Medicine Infectious Disease
DX: N39.0 Urinary tract infection, site not specified (principal)
CPT/HCPCS: 74176

== ENCOUNTER 2018-10-11 16:14 | Emergency (ER) | payer MEDICARE, BC ==
[~2018-10-11] VITALS: Ht 162.6 cm; Wt 72.8 kg
--- OUTSIDE RECORDS SUMMARY | 2018-10-11 16:19 | XMS REPORT | Clinical Summary ---
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 Noted through Electronic Medical Record. ([facility]) Nalidixic Acid Other (See 08/16/2018 Comments) Immodium Dexamethphosphate (Hives) Other Hives 08/16/2018 Penicillins Rash Low 08/06/2018 Pentazocine-Naloxone Rash Low 08/06/2018 tremors Metoclopramide Hcl Other (See 08/09/2018 Comments) Sulfa (Sulfonamide Rash Low 08/06/2018 Antibiotics) Sumatriptan Succinate Rash Low 08/06/2018 Pentazocine Lactate Rash Low 08/06/2018 Medications End Date Status Medication Sig Dispensed Refills Start Date Active losartan (COZAAR) 25 MG Take 25 mg by 0 tablet mouth 2 (two) times daily. Active amLODIPine (NORVASC) 10 Take 10 mg by 0 MG tablet mouth nightly. Active lovastatin (MEVACOR) 20 Take 20 mg by 0 MG tablet mouth nightly. Active mirtazapine (REMERON Take 90 mg by 0 RAQUEL-TAB) 45 MG mouth disintegrating tablet nightly. Active duloxetine HCl (CYMBALTA Take 120 mg 0 ORAL) by mouth nightly Takes (4) 30 mg tabs for a total 120 mg. Dysphagia.. Active carBAMazepine (TEGRETOL Take 100 mg 0 XR) 100 MG 12 hr tablet by mouth 2 (two) times daily. Active ALPRAZolam (XANAX XR) 1 Take 1 mg by 0 MG 24 hr tablet mouth every morning. Active ondansetron (ZOFRAN) 8 MG Take by mouth 0 tablet every 8 (eight) hours as needed for Nausea. Active dicyclomine (BENTYL) 10 Take 20 mg by 0 mg/5 mL solution mouth as needed. Active CYANOCOBALAMIN, VITAMIN Inject as 0 B-12, INJ directed once a week. Active hydroxychloroquine Take 300 mg 0 sulfate (PLAQUENIL ORAL) by mouth daily Patient initially thought her tablets were 100 mg, and her MD instructed her to take one tablet and hald (150 mg ). However upon review, tablets are identified as 200 mg, therefore patient has been been taking . Active aspirin 81 MG EC tablet Take 81 mg by 0 mouth daily. Active montelukast (SINGULAIR) Take 10 mg by 0 10 mg tablet mouth nightly. Active butalbital-acetaminophen- Take 1 tablet 0 caffeine (FIORICET, by mouth ESGIC) 50-325-40 mg per every 6 (six) tablet hours as needed for Headaches. Active eletriptan (RELPAX) 20 MG Take 20 mg by 0 tablet mouth once as needed for Headaches Do NOT exceed eighty (80) mg in 24 hours. . Active HYDROcodone-acetaminophen Take 1 tablet 0 (NORCO 10-325) 10-325 mg by mouth 9 per tablet every 4 (four) hours as needed for Pain. Max Daily Amount: 6 tablets Active senna (SENOKOT) 8.6 mg Take 1 tablet 0 tablet (8.6 mg 9 total) by mouth every night as needed for Constipation. Active sodium chloride 0.45% Inject 2,000 10743 mL 1 (1/2NS) infusion mLs 9 intravenously every night as needed. 09/14/2018 Discontinued HYDROcodone-acetaminophen Take 1 tablet 0 (NORCO 10-325) 10-325 mg by mouth 4 per tablet (four) times daily . 09/14/2018 Discontinued promethazine (PHENERGAN) Take 25 mg by 0 25 MG tablet mouth every 6 (six) hours as needed for Nausea. 09/14/2018 Discontinued TiZANidine (ZANAFLEX) 4 Take 4 mg by 0 MG capsule mouth 3 (three) times daily as needed for Muscle spasms. 09/24/2018 acetaminophen (TYLENOL) Take 2 0 325 MG tablet tablets (650 9 mg total) by mouth every 6 (six) hours as needed for Pain for up to 10 days. 09/24/2018 gabapentin (NEURONTIN) Take 1 30 capsule 0 100 MG capsule capsule (100 9 mg total) by mouth 3 (three) times daily for 10 days. 09/30/2018 fentaNYL (DURAGESIC) 25 Place 1 patch 5 patch 0 mcg/hr patch onto the skin 9 every third day for 14 days. Max Daily Amount: 1 patch 09/14/2018 Discontinued sodium chloride 0.45% Inject 2,000 0 (1/2NS) infusion mLs intravenously every night as needed. Active Problems Problem Noted Date Acute postoperative pain 08/31/2018 Acute blood loss anemia 08/31/2018 Acute respiratory insufficiency 08/31/2018 s/p Redo Hiatal hernia Rpr (08/30/18) 08/30/2018 Encounters Care Team Description Date Type Specialty Taurus Lewis 09/03/2018 Anesthesia Event Donaldo Cooper MD BRONCHOSCOPY 08/30/2018 Surgery Taurus Peters MD 08/30/2018 Anesthesia Event Donaldo Cooper MD Acute blood loss anemia; Acute postoperative pain; Acute respiratory insufficiency 08/30/2018 Hospital Intensive Care - Encounter 09/14/2018 08/30/2018 Travel Donaldo Cooper MD 08/26/2018 Hospital Encounter Donaldo Cooper MD 08/26/2018 Hospital Pre-Admission Testing Encounter 08/26/2018 Orders Only General Internal Medicine Nelson Krause DO 08/26/2018 Outside Orders Resource, [facility] Preadmit Phone 08/16/2018 Hospital Pre-Admission Testing Encounter [place] Francesco Denis MD 08/10/2018 Anesthesia Gastroenterology Event Donaldo Cooper MD UPPER ENDOSCOPY 08/10/2018 Surgery Gastroenterology Donaldo Cooper MD 08/10/2018 Hospital Gastroenterology Encounter Resource, [facility] Preadmit Phone 08/09/2018 Hospital Pre-Admission Testing Encounter after 10/10/2017 Social History Date Tobacco Use Types Packs/Day Years Used Never Smoker Smokeless Tobacco: Never Used Alcohol Use Drinks/Week oz/Week Comments No Alcohol Habits Answer Date Recorded How often do you have a drink containing alcohol? Never 08/09/2018 How many drinks containing alcohol do you have on Not asked a typical day when you are drinking? How often do you have six or more drinks on one Not asked occasion? Sex Assigned at Date Recorded Not on file Industry Job Start Date Occupation Not on file Not on file Not on file Travel End Travel History Travel Start No recent travel history available. Last Filed Vital Signs Time Taken Vital Sign Reading 09/14/2018 8:00 AM CDT Blood Pressure 125/60 09/14/2018 10:00 AM CDT Pulse 79 09/14/2018 8:00 AM CDT Temperature 36.5 C (97.7 F) 09/14/2018 10:00 AM CDT Respiratory Rate 15 09/14/2018 10:00 AM CDT Oxygen Saturation 97% - Inhaled Oxygen - Concentration 09/13/2018 6:00 AM CDT Weight 73.4 kg (161 lb 13.1 oz) 08/30/2018 5:59 AM CDT Height 162.6 cm (5' 4") 09/13/2018 6:00 AM CDT Body Mass Index 27.78 Plan of Treatment Not on file Procedures Comments Procedure Name Priority Date/Time Associated Diagnosis RHYTHM STRIP - SCAN 09/16/2018 12:12 PM CDT RHYTHM STRIP - SCAN 09/16/2018 12:12 PM CDT POCT-GLUCOSE METER Routine 09/14/2018 12:52 PM CDT POCT-GLUCOSE METER Routine 09/14/2018 6:46 AM CDT XR CHEST 1 VIEW Routine 09/14/2018 PORTABLE/BEDSIDE 5:44 AM CDT CBC W/PLT COUNT & AUTO Routine 09/14/2018 DIFFERENTIAL 4:01 AM CDT MAGNESIUM Routine 09/14/2018 4:01 AM CDT PHOSPHORUS Routine 09/14/2018 4:01 AM CDT CBC W/PLT COUNT & AUTO Routine 09/14/2018 DIFFERENTIAL 4:01 AM CDT BASIC METABOLIC PANEL (7) Routine 09/14/2018 4:01 AM CDT POCT-GLUCOSE METER Routine 09/13/2018 11:53 PM CDT POCT-GLUCOSE METER Routine 09/13/2018 4:51 PM CDT MAGNESIUM Routine 09/13/2018 2:44 PM CDT POTASSIUM Routine 09/13/2018 2:44 PM CDT POCT-GLUCOSE METER Routine 09/13/2018 11:05 AM CDT POCT-GLUCOSE METER Routine 09/13/2018 5:49 AM CDT XR CHEST 1 VIEW Routine 09/13/2018 PORTABLE/BEDSIDE 5:31 AM CDT (CELLAVISION MANUAL DIFF) Routine 09/13/2018 3:45 AM CDT CBC W/PLT COUNT & AUTO Routine 09/13/2018 DIFFERENTIAL 3:45 AM CDT MAGNESIUM Routine 09/13/2018 3:45 AM CDT PHOSPHORUS Routine 09/13/2018 3:45 AM CDT ALBUMIN Routine 09/13/2018 3:45 AM CDT PROTEIN, TOTAL Routine 09/13/2018 3:45 AM CDT PREALBUMIN Routine 09/13/2018 3:45 AM CDT CBC W/PLT COUNT & AUTO Routine 09/13/2018 DIFFERENTIAL 3:45 AM CDT BASIC METABOLIC PANEL (7) Routine 09/13/2018 3:45 AM CDT POCT-GLUCOSE METER Routine 09/12/2018 11:06 PM CDT POCT-GLUCOSE METER Routine 09/12/2018 5:59 PM CDT POCT-GLUCOSE METER Routine 09/12/2018 11:45 AM CDT POCT-GLUCOSE METER Routine 09/12/2018 5:45 AM CDT CBC W/PLT COUNT & AUTO Routine 09/12/2018 DIFFERENTIAL 5:03 AM CDT MAGNESIUM Routine 09/12/2018 5:03 AM CDT PHOSPHORUS Routine 09/12/2018 5:03 AM CDT CBC W/PLT COUNT & AUTO Routine 09/12/2018 DIFFERENTIAL 5:03 AM CDT BASIC METABOLIC PANEL (7) Routine 09/12/2018 5:03 AM CDT XR CHEST 1 VIEW Routine 09/12/2018 PORTABLE/BEDSIDE 3:05 AM CDT POCT-GLUCOSE METER Routine 09/11/2018 11:32 PM CDT POCT-GLUCOSE METER Routine 09/11/2018 5:47 PM CDT POCT-GLUCOSE METER Routine 09/11/2018 11:57 AM CDT POCT-GLUCOSE METER Routine 09/11/2018 5:37 AM CDT XR CHEST 1 VIEW Routine 09/11/2018 PORTABLE/BEDSIDE 4:21 AM CDT CBC W/PLT COUNT & AUTO Routine 09/11/2018 DIFFERENTIAL 4:14 AM CDT MAGNESIUM Routine 09/11/2018 4:14 AM CDT PHOSPHORUS Routine 09/11/2018 4:14 AM CDT CBC W/PLT COUNT & AUTO Routine 09/11/2018 DIFFERENTIAL 4:14 AM CDT BASIC METABOLIC PANEL (7) Routine 09/11/2018 4:14 AM CDT POCT-GLUCOSE METER Routine 09/10/2018 11:31 PM CDT POCT-GLUCOSE METER Routine 09/10/2018 6:11 PM CDT POTASSIUM Routine 09/10/2018 4:29 PM CDT POCT-GLUCOSE METER Routine 09/10/2018 12:09 PM CDT CBC W/PLT COUNT & AUTO Routine 09/10/2018 DIFFERENTIAL 11:11 AM CDT MAGNESIUM Routine 09/10/2018 11:11 AM CDT PHOSPHORUS Routine 09/10/2018 11:11 AM CDT CBC W/PLT COUNT & AUTO Routine 09/10/2018 DIFFERENTIAL 11:11 AM CDT BASIC METABOLIC PANEL (7) Routine 09/10/2018 11:11 AM CDT XR CHEST 1 VIEW Routine 09/10/2018 PORTABLE/BEDSIDE 5:53 AM CDT POCT-GLUCOSE METER Routine 09/10/2018 5:38 AM CDT POCT-GLUCOSE METER Routine 09/09/2018 11:13 PM CDT POCT-GLUCOSE METER Routine 09/09/2018 5:45 PM CDT US CHEST STAT 09/09/2018 1:00 PM CDT PT/APTT STAT 09/09/2018 10:00 AM CDT POCT-GLUCOSE METER Routine 09/09/2018 5:37 AM CDT (CELLAVISION MANUAL DIFF) Routine 09/09/2018 5:23 AM CDT CBC W/PLT COUNT & AUTO Routine 09/09/2018 DIFFERENTIAL 5:23 AM CDT PHOSPHORUS Routine 09/09/2018 5:23 AM CDT CBC W/PLT COUNT & AUTO Routine 09/09/2018 DIFFERENTIAL 5:23 AM CDT BASIC METABOLIC PANEL (7) Routine 09/09/2018 5:23 AM CDT XR CHEST 1 VIEW Routine 09/09/2018 PORTABLE/BEDSIDE 5:11 AM CDT POCT-GLUCOSE METER Routine 09/08/2018 11:58 PM CDT POCT-GLUCOSE METER Routine 09/08/2018 5:44 PM CDT POCT-GLUCOSE METER Routine 09/08/2018 12:47 PM CDT XR ABDOMEN ACUTE SERIES Routine 09/08/2018 FLAT W UPRIGHT CHEST OR 10:16 AM CDT DECUBS POCT-GLUCOSE METER Routine 09/08/2018 6:06 AM CDT (CELLAVISION MANUAL DIFF) Routine 09/08/2018 4:51 AM CDT CBC W/PLT COUNT & AUTO Routine 09/08/2018 DIFFERENTIAL 4:51 AM CDT CBC W/PLT COUNT & AUTO Routine 09/08/2018 DIFFERENTIAL 4:51 AM CDT PHOSPHORUS Routine 09/08/2018 4:50 AM CDT BASIC METABOLIC PANEL (7) Routine 09/08/2018 4:50 AM CDT XR CHEST 1 VIEW Routine 09/08/2018 PORTABLE/BEDSIDE 3:09 AM CDT POCT-GLUCOSE METER Routine 09/07/2018 11:40 PM CDT POCT-GLUCOSE METER Routine 09/07/2018 6:27 PM CDT POCT-GLUCOSE METER Routine 09/07/2018 12:30 PM CDT XR CHEST 1 VIEW Routine 09/07/2018 PORTABLE/BEDSIDE 6:01 AM CDT (CELLAVISION MANUAL DIFF) Routine 09/07/2018 5:17 AM CDT CBC W/PLT COUNT & AUTO Routine 09/07/2018 DIFFERENTIAL 5:17 AM CDT PHOSPHORUS Routine 09/07/2018 5:17 AM CDT CBC W/PLT COUNT & AUTO Routine 09/07/2018 DIFFERENTIAL 5:17 AM CDT BASIC METABOLIC PANEL (7) Routine 09/07/2018 5:17 AM CDT POCT-GLUCOSE METER Routine 09/07/2018 5:01 AM CDT POCT-GLUCOSE METER Routine 09/06/2018 11:15 PM CDT POCT-GLUCOSE METER Routine 09/06/2018 6:07 PM CDT POCT-GLUCOSE METER Routine 09/06/2018 11:43 AM CDT XR ABDOMEN 1 VIEW NADIA 09/06/2018 8:18 AM CDT POCT-GLUCOSE METER Routine 09/06/2018 6:05 AM CDT (CELLAVISION MANUAL DIFF) Routine 09/06/2018 3:22 AM CDT CBC W/PLT COUNT & AUTO Routine 09/06/2018 DIFFERENTIAL 3:22 AM CDT PHOSPHORUS Routine 09/06/2018 3:22 AM CDT ALBUMIN Routine 09/06/2018 3:22 AM CDT PROTEIN, TOTAL Routine 09/06/2018 3:22 AM CDT PREALBUMIN Routine 09/06/2018 3:22 AM CDT CBC W/PLT COUNT & AUTO Routine 09/06/2018 DIFFERENTIAL 3:22 AM CDT BASIC METABOLIC PANEL (7) Routine 09/06/2018 3:22 AM CDT XR CHEST 1 VIEW Routine 09/06/2018 PORTABLE/BEDSIDE 3:17 AM CDT POCT-GLUCOSE METER Routine 09/05/2018 11:47 PM CDT POCT-GLUCOSE METER Routine 09/05/2018 6:39 PM CDT POCT-GLUCOSE METER Routine 09/05/2018 5:25 PM CDT POCT-GLUCOSE METER Routine 09/05/2018 5:58 AM CDT (CELLAVISION MANUAL DIFF) Routine 09/05/2018 4:19 AM CDT CBC W/PLT COUNT & AUTO Routine 09/05/2018 DIFFERENTIAL 4:19 AM CDT CALCIUM, IONIZED Routine 09/05/2018 4:19 AM CDT PHOSPHORUS Routine 09/05/2018 4:19 AM CDT CBC W/PLT COUNT & AUTO Routine 09/05/2018 DIFFERENTIAL 4:19 AM CDT BASIC METABOLIC PANEL (7) Routine 09/05/2018 4:19 AM CDT XR CHEST 1 VIEW Routine 09/05/2018 PORTABLE/BEDSIDE 3:37 AM CDT POCT-GLUCOSE METER Routine 09/04/2018 11:29 PM CDT POCT-GLUCOSE METER Routine 09/04/2018 5:44 PM CDT POCT-GLUCOSE METER Routine 09/04/2018 12:05 PM CDT POCT-GLUCOSE METER Routine 09/04/2018 5:58 AM CDT CBC W/PLT COUNT & AUTO Routine 09/04/2018 DIFFERENTIAL 4:50 AM CDT CALCIUM, IONIZED Routine 09/04/2018 4:50 AM CDT PHOSPHORUS Routine 09/04/2018 4:50 AM CDT CBC W/PLT COUNT & AUTO Routine 09/04/2018 DIFFERENTIAL 4:50 AM CDT BASIC METABOLIC PANEL (7) Routine 09/04/2018 4:50 AM CDT XR CHEST 1 VIEW Routine 09/04/2018 PORTABLE/BEDSIDE 4:27 AM CDT POCT-GLUCOSE METER Routine 09/03/2018 11:16 PM CDT POCT-GLUCOSE METER Routine 09/03/2018 6:10 PM CDT TRANSFUSION SERVICE 09/03/2018 REPORT - SCAN 5:52 PM CDT POCT-GLUCOSE METER Routine 09/03/2018 11:47 AM CDT XR CHEST 1 VIEW Routine 09/03/2018 PORTABLE/BEDSIDE 6:01 AM CDT CBC W/PLT COUNT & AUTO Routine 09/03/2018 DIFFERENTIAL 4:36 AM CDT CALCIUM, IONIZED Routine 09/03/2018 4:36 AM CDT PHOSPHORUS Routine 09/03/2018 4:36 AM CDT CBC W/PLT COUNT & AUTO Routine 09/03/2018 DIFFERENTIAL 4:36 AM CDT BASIC METABOLIC PANEL (7) Routine 09/03/2018 4:36 AM CDT PREPARE RBC STAT 09/02/2018 11:54 PM CDT POCT-GLUCOSE METER Routine 09/02/2018 11:19 PM CDT POCT-GLUCOSE METER Routine 09/02/2018 12:19 PM CDT POCT-GLUCOSE METER Routine 09/02/2018 5:52 AM CDT CBC W/PLT COUNT & AUTO Routine 09/02/2018 DIFFERENTIAL 4:38 AM CDT CALCIUM, IONIZED Routine 09/02/2018 4:38 AM CDT CBC W/PLT COUNT & AUTO Routine 09/02/2018 DIFFERENTIAL 4:38 AM CDT PHOSPHORUS Routine 09/02/2018 4:37 AM CDT MAGNESIUM Routine 09/02/2018 4:37 AM CDT BASIC METABOLIC PANEL (7) Routine 09/02/2018 4:37 AM CDT XR CHEST 1 VIEW Routine 09/02/2018 PORTABLE/BEDSIDE 4:21 AM CDT POCT-GLUCOSE METER Routine 09/01/2018 11:31 PM CDT POCT-GLUCOSE METER Routine 09/01/2018 6:45 PM CDT HEMOGLOBIN AND HEMATOCRIT STAT 09/01/2018 2:45 PM CDT TRANSFUSE LEUKO-REDUCED NADIA 09/01/2018 RED BLOOD CELLS 2:16 PM CDT POCT-GLUCOSE METER Routine 09/01/2018 12:59 PM CDT TRANSFUSE LEUKO-REDUCED NADIA 09/01/2018 RED BLOOD CELLS 11:12 AM CDT POCT-GLUCOSE METER Routine 09/01/2018 6:16 AM CDT XR CHEST 1 VIEW Routine 09/01/2018 PORTABLE/BEDSIDE 4:25 AM CDT CBC W/PLT COUNT & AUTO Routine 09/01/2018 DIFFERENTIAL 3:25 AM CDT CALCIUM, IONIZED Routine 09/01/2018 3:25 AM CDT PHOSPHORUS Routine 09/01/2018 3:25 AM CDT TRIGLYCERIDES Routine 09/01/2018 3:25 AM CDT COMPREHENSIVE METABOLIC Routine 09/01/2018 PANEL 3:25 AM CDT PREALBUMIN Routine 09/01/2018 3:25 AM CDT CBC W/PLT COUNT & AUTO Routine 09/01/2018 DIFFERENTIAL 3:25 AM CDT MAGNESIUM Routine 09/01/2018 3:25 AM CDT POCT-GLUCOSE METER Routine 08/31/2018 11:25 PM CDT TRANSFUSION SERVICE 08/31/2018 REPORT - SCAN 6:03 PM CDT POCT-GLUCOSE METER Routine 08/31/2018 5:33 PM CDT XR CHEST 1 VIEW Routine 08/31/2018 PORTABLE/BEDSIDE 2:43 PM CDT POCT-GLUCOSE METER Routine 08/31/2018 12:13 PM CDT POCT-GLUCOSE METER Routine 08/31/2018 6:41 AM CDT XR CHEST 1 VIEW Routine 08/31/2018 PORTABLE/BEDSIDE 5:43 AM CDT (CELLAVISION MANUAL DIFF) Routine 08/31/2018 3:38 AM CDT CBC W/PLT COUNT & AUTO Routine 08/31/2018 DIFFERENTIAL 3:38 AM CDT CBC W/PLT COUNT & AUTO Routine 08/31/2018 DIFFERENTIAL 3:38 AM CDT MAGNESIUM Routine 08/31/2018 3:38 AM CDT BASIC METABOLIC PANEL (7) Routine 08/31/2018 3:38 AM CDT POCT-GLUCOSE METER Routine 08/31/2018 12:18 AM CDT XR CHEST 1 VIEW STAT 08/30/2018 PORTABLE/BEDSIDE 9:30 PM CDT CBC W/PLT COUNT & AUTO STAT 08/30/2018 DIFFERENTIAL 7:15 PM CDT MAGNESIUM STAT 08/30/2018 7:15 PM CDT BASIC METABOLIC PANEL (7) STAT 08/30/2018 7:15 PM CDT CBC W/PLT COUNT & AUTO STAT 08/30/2018 DIFFERENTIAL 7:15 PM CDT PREPARE RBC Routine 08/30/2018 6:56 PM CDT TRANSFUSION SERVICE 08/30/2018 REPORT - SCAN 6:02 PM CDT HGB/HCT (H&H) - STAT LAB STAT 08/30/2018 4:59 PM CDT GLUCOSE-STAT LAB STAT 08/30/2018 4:59 PM CDT POTASSIUM-STAT LAB STAT 08/30/2018 4:59 PM CDT SODIUM NA-STAT LAB STAT 08/30/2018 4:59 PM CDT BLOOD GAS, ARTERIAL STAT 08/30/2018 4:59 PM CDT CALCIUM, IONIZED STAT 08/30/2018 4:59 PM CDT RRL CRITICAL LABS STAT 08/30/2018 (ABG,NA,K,H&H,GLUCOSE) 4:59 PM CDT TISSUE EXAM AP Routine 08/30/2018 4:25 PM CDT HGB/HCT (H&H) - STAT LAB STAT 08/30/2018 2:56 PM CDT GLUCOSE-STAT LAB STAT 08/30/2018 2:56 PM CDT POTASSIUM-STAT LAB STAT 08/30/2018 2:56 PM CDT SODIUM NA-STAT LAB STAT 08/30/2018 2:56 PM CDT BLOOD GAS, ARTERIAL STAT 08/30/2018 2:56 PM CDT CALCIUM, IONIZED STAT 08/30/2018 2:56 PM CDT RRL CRITICAL LABS STAT 08/30/2018 (ABG,NA,K,H&H,GLUCOSE) 2:56 PM CDT IL AN EPIDURAL CATH - NO Routine 08/30/2018 CHARGE 1:44 PM CDT HGB/HCT (H&H) - STAT LAB STAT 08/30/2018 1:03 PM CDT GLUCOSE-STAT LAB STAT 08/30/2018 1:03 PM CDT POTASSIUM-STAT LAB STAT 08/30/2018 1:03 PM CDT SODIUM NA-STAT LAB STAT 08/30/2018 1:03 PM CDT BLOOD GAS, ARTERIAL STAT 08/30/2018 1:03 PM CDT CALCIUM, IONIZED STAT 08/30/2018 1:03 PM CDT RRL CRITICAL LABS STAT 08/30/2018 (ABG,NA,K,H&H,GLUCOSE) 1:03 PM CDT HGB/HCT (H&H) - STAT LAB STAT 08/30/2018 10:56 AM CDT GLUCOSE-STAT LAB STAT 08/30/2018 10:56 AM CDT POTASSIUM-STAT LAB STAT 08/30/2018 10:56 AM CDT SODIUM NA-STAT LAB STAT 08/30/2018 10:56 AM CDT BLOOD GAS, ARTERIAL STAT 08/30/2018 10:56 AM CDT RRL CRITICAL LABS STAT 08/30/2018 (ABG,NA,K,H&H,GLUCOSE) 10:56 AM CDT CALCIUM, IONIZED STAT 08/30/2018 10:56 AM CDT TISSUE EXAM AP Routine 08/30/2018 9:31 AM CDT ESOPHAGOGASTRODUODENOSCOP 08/30/2018 Hiatal hernia Y (EGD) 8:00 AM CDT Partial intestinal obstruction, unspecified cause (HCC) Case Notes 8 HRS PER FAXDRSantosh ROBLES - EITHER ASSISTING OR POSTING A PANEL Special Needs (DR. ROBLES? PLEASE CONFIRM IF THEY'RE ASSISTING OR POSTING A SECOND PANEL>) INSERTION,JEJUNOSTOMY 08/30/2018 Hiatal hernia TUBE-LAPAROSCOPIC 8:00 AM CDT Partial intestinal obstruction, unspecified cause (HCC) Case Notes 8 HRS PER FAXDR. ROBLES - EITHER ASSISTING OR POSTING A PANEL Special Needs (DR. ROBLES? PLEASE CONFIRM IF THEY'RE ASSISTING OR POSTING A SECOND PANEL>) RESECTION,SMALL INTESTINE 08/30/2018 Hiatal hernia 8:00 AM CDT Partial intestinal obstruction, unspecified cause (HCC) Case Notes 8 HRS PER FAXDR. ROBLES - EITHER ASSISTING OR POSTING A PANEL Special Needs (DR. ROBLES? PLEASE CONFIRM IF THEY'RE ASSISTING OR POSTING A SECOND PANEL>) LYSIS,ADHESIONS 08/30/2018 Hiatal hernia PERITONEAL 8:00 AM CDT Partial intestinal obstruction, unspecified cause (HCC) Case Notes 8 HRS PER FAXDRSantosh ROBLES - EITHER ASSISTING OR POSTING A PANEL Special Needs (DR. ROBLES? PLEASE CONFIRM IF THEY'RE ASSISTING OR POSTING A SECOND PANEL>) WASHOUT,ABDOMINAL 08/30/2018 Hiatal hernia 8:00 AM CDT Partial intestinal obstruction, unspecified cause (HCC) Case Notes 8 HRS PER FAXDRSantosh ROBLES - EITHER ASSISTING OR POSTING A PANEL Special Needs (DR. ROBLES? PLEASE CONFIRM IF THEY'RE ASSISTING OR POSTING A SECOND PANEL>) HERNIORRHAPHY,HIATAL 08/30/2018 Hiatal hernia 8:00 AM CDT Partial intestinal obstruction, unspecified cause (HCC) Case Notes 8 HRS PER FAXDRSantosh ROBLES - EITHER ASSISTING OR POSTING A PANEL Special Needs (DR. ROBLES? PLEASE CONFIRM IF THEY'RE ASSISTING OR POSTING A SECOND PANEL>) THORACOTOMY,DECORTICATION 08/30/2018 Hiatal hernia 8:00 AM CDT Partial intestinal obstruction, unspecified cause (HCC) Case Notes 8 HRS PER FAXDRSantosh ROBLES - EITHER ASSISTING OR POSTING A PANEL Special Needs (DR. ROBLES? PLEASE CONFIRM IF THEY'RE ASSISTING OR POSTING A SECOND PANEL>) BRONCHOSCOPY 08/30/2018 Hiatal hernia 8:00 AM CDT Partial intestinal obstruction, unspecified cause (HCC) Case Notes 8 HRS PER FAXDRSantosh ROBLES - EITHER ASSISTING OR POSTING A PANEL Special Needs (DR. ROBLES? PLEASE CONFIRM IF THEY'RE ASSISTING OR POSTING A SECOND PANEL>) POCT-GLUCOSE METER Routine 08/30/2018 6:11 AM CDT TRANSFUSION SERVICE 08/27/2018 REPORT - SCAN 6:04 PM CDT XR CHEST 2 VIEWS Routine 08/26/2018 2:45 PM CDT ECG 12-LEAD Routine 08/26/2018 2:18 PM CDT Procedure Note - Interface, External Ris In - 08/26/2018 4:56 PM CDT Ventricula r Rate 75 BPM Atrial Rate 75 BPM P-R Interval 136 ms QRS Duration 76 ms Q-T Interval 382 ms QTC Calculatio n(Bazett) 426 ms P Ledbetter 28 degrees R Ledbetter 2 degrees T Ledbetter 11 degrees Sinus rhythm with Premature supraventr icular complexes Otherwise normal ECG When compared with ECG of 2 23:38, Premature supraventr icular complexes are now Present ECG 12-LEAD Routine 08/26/2018 2:18 PM CDT CBC W/PLT COUNT & AUTO Routine 08/26/2018 DIFFERENTIAL 2:13 PM CDT TYPE AND SCREEN, Routine 08/26/2018 AUTOMATED 2:13 PM CDT PT/APTT Routine 08/26/2018 2:13 PM CDT COMPREHENSIVE METABOLIC Routine 08/26/2018 PANEL 2:13 PM CDT CBC W/PLT COUNT & AUTO Routine 08/26/2018 DIFFERENTIAL 2:13 PM CDT RHYTHM STRIP - SCAN 08/11/2018 11:23 AM CDT UPPER ENDOSCOPY 08/10/2018 Hiatal hernia 1:00 PM CDT Special Needs (C-ARM) POCT-HEMOGLOBIN METER Routine 08/10/2018 12:56 PM CDT POCT-GLUCOSE METER Routine 08/10/2018 12:55 PM CDT after 10/10/2017 Results * RHYTHM STRIP - SCAN (09/16/2018 12:12 PM CDT) Only the most recent of 3 results within the time period is included. Narrative Performed At * POC-Glucose meter (09/14/2018 12:52 PM CDT) Only the most recent of 58 results within the time period is included. POC-Glucose Meter 89Comment: TESTED AT [facility] 70 - 110 mg/dL [address] Specimen Blood Performing Organization Address City/State/[place] [address] [facility] * XR chest 1 view portable/bedside (09/14/2018 5:44 AM CDT) Only the most recent of 17 results within the time period is included. Specimen Narrative Performed At FINAL REPORT [facility] TECHNIQUE: Frontal chest radiograph dated 09/14/2018. CLINICAL HISTORY: Post op COMPARISON STUDY: Chest radiograph dated 09/13/2018 IMPRESSION: Left-sided MediPort is unchanged in position. Stable scarring/trace pleural effusion on the left. There is no change in the left lung base atelectasis. No pneumothorax. Cardiomediastinal silhouette is normal in size. No pulmonary edema. Bones are osteopenic. Kyphoplasty material is seen in T7. Signed: Kane Mckeon MD Report Verified Date/Time:09/14/2018 09:47:42 Reading Location: [facility] Mammo Reading Room Procedure Note Interface, External Ris In - 09/14/2018 9:49 AM CDT FINAL REPORT TECHNIQUE: Frontal chest radiograph dated 09/14/2018. CLINICAL HISTORY: Post op COMPARISON STUDY: Chest radiograph dated 09/13/2018 IMPRESSION: Left-sided MediPort is unchanged in position. Stable scarring/trace pleural effusion on the left. There is no change in the left lung base atelectasis. No pneumothorax. Cardiomediastinal silhouette is normal in size. No pulmonary edema. Bones are osteopenic. Kyphoplasty material is seen in T7. Signed: Kane Mckeon MD Report Verified Date/Time: 09/14/2018 09:47:42 Reading Location: [facility] Mammo Reading Room Performing Organization Address City/State/Zipcode Phone Number [facility] * CBC with platelet count + automated diff (09/14/2018 4:01 AM CDT) Only the most recent of 17 results within the time period is included. WBC 12.1 (H) 3.5 - 10.5 K/L [facility] RBC 3.87 (L) 3.93 - 5.22 M/L [facility] Hemoglobin 9.6 (L) 11.2 - 15.7 GM/DL [facility] Hematocrit 31.8 (L) 34.1 - 44.9 % [facility] MCV 82.2 79.4 - 94.8 fL [facility] MCH 24.8 (L) 25.6 - 32.2 pg [facility] MCHC 30.2 (L) 32.2 - 35.5 GM/DL [facility] RDW 19.2 (H) 11.7 - 14.4 % [facility] [facility] Platelets 687 (H) 150 - 450 K/CU MM [facility] MPV 8.7 (L) 9.4 - 12.3 fL [facility] nRBC 0 0 - 0 /100 WBC [facility] % Neutros 67 % [facility] % Lymphs 16 % [facility] % Monos 5 % [facility] % Eos 10 % [facility] % Baso 1 % [facility] # Neutros 8.05 (H) 1.56 - 6.13 K/L [facility] # Lymphs 1.99 1.18 - 3.74 K/L [facility] # Monos 0.61 (H) 0.24 - 0.36 K/L [facility] # Eos 1.20 (H) 0.04 - 0.36 K/L [facility] # Baso 0.09 (H) 0.01 - 0.08 K/L [facility] Immature 1 0 - 1 % [facility] Granulocytes-[facility] Specimen Blood Performing Organization Address City/[facility] Phone Number [address] * Phosphorus (09/14/2018 4:01 AM CDT) Only the most recent of 14 results within the time period is included. Phosphorus 3.3 2.3 - 4.7 mg/dL [facility] Specimen Blood Performing Organization Address City/[facility] Phone Number [address] * Magnesium (09/14/2018 4:01 AM CDT) Only the most recent of 10 results within the time period is included. Magnesium 2.2 1.6 - 2.6 mg/dL [facility] Specimen Blood Performing Organization Address City/[facility] [place] [address] [phone] [place] [address] * Basic Metabolic Panel (09/14/2018 4:01 AM CDT) Only the most recent of 15 results within the time period is included. Sodium 137 136 - 145 meq/L [facility] Potassium 3.9 3.5 - 5.1 meq/L [facility] Chloride 103 98 - 107 meq/L [facility] CO2 27 22 - 29 meq/L [facility] BUN 11 7 - 21 mg/dL [facility] Creatinine 0.76 0.57 - 1.25 mg/dL [facility] Glucose 80 70 - 105 mg/dL [facility] Calcium 8.4 8.4 - 10.2 mg/dL [facility] EGFR 78Comment: ESTIMATED GFR IS mL/min/1.73 sq m [facility] NOT ACCURATE CREATININE [facility] CLEARANCE IN PREDICTING GLOMERULAR FILTRATION RATE. ESTIMATED GFR IS NOT APPLICABLE FOR DIALYSIS PATIENTS. Specimen Blood Performing Organization Address City/[facility]/Zipcode Phone Number [facility] [address] [place] [address] [phone] [facility] * Potassium (09/13/2018 2:44 PM CDT) Only the most recent of 2 results within the time period is included. Potassium 3.9 3.5 - 5.1 meq/L [facility] Specimen Blood Narrative Performed At Check Serum Potassium level 2 hours after oral potassium replacement completed [facility] or 30 min after intravenous potassium replacement. [facility] Performing Organization Address City/State/Zipcode Phone Number [facility] [address] [place], [place] [phone] [facility] * Manual Differential (09/13/2018 3:45 AM CDT) Only the most recent of 7 results within the time period is included. % Neutros 75 % [facility] % Lymphs 9 % [facility] % Monos 2 % [facility] % Eos 14 % [facility] # Neutros 8.63 (H) 1.56 - 6.13 K/ul [facility] # Lymphs 1.04 (L) 1.18 - 3.74 K/ul [facility] # Monos 0.23 (L) 0.24 - 0.36 K/uL [facility] # Eos 1.61 (H) 0.04 - 0.36 K/uL [facility] Total Counted 100 [facility] WBC Morphology Normal [facility] Large Platelet Present [facility] Polychromasia 1+ few [facility] Hypochromia 1+ few [facility] Artifact Present [facility] Platelet Conc Increased [facility] Specimen Blood Narrative Performed At Received comment: [facility] User comments: [facility] Slide comments: Performing Organization Address City/[facility] Phone Number [address] * Protein, total (09/13/2018 3:45 AM CDT) Only the most recent of 2 results within the time period is included. Protein, Total 6.6 6.0 - 8.3 gm/dL [facility] Specimen Blood Performing Organization Address City/[facility]/[place] [address] [phone] * Prealbumin (09/13/2018 3:45 AM CDT) Only the most recent of 3 results within the time period is included. Prealbumin 9 (L) 14 - 45 mg/dL [facility] Specimen Blood Performing Organization Address City/[facility] [place] [address] [phone] [place] [address] * Albumin (09/13/2018 3:45 AM CDT) Only the most recent of 2 results within the time period is included. Albumin 3.0 (L) 3.5 - 5.0 g/dL [facility] Specimen Blood Performing Organization Address City/State/Zipcode Phone Number [facility] [address] [place] [address] MEDICAL CENTER * US chest (09/09/2018 1:00 PM CDT) Specimen Narrative Performed At FINAL REPORT [facility] Procedure: Ultrasound guided drainage/chest tube insertion Indication: Left pleural effusion status post surgery Findings: Patient evaluated for ultrasound-guided drainage/chest tube insertion. Patient only has trace pleural fluid. Risk versus benefit of proceeding with procedure discussed with patient. Left pleural fluid is not amenable to ultrasound-guided drainage at this time. Signed: Faizan Conklin MD Report Verified Date/Time:09/09/2018 16:10:40 Reading Location: [address] Ultrasound Reading Room Procedure Note Interface, External Ris In - 09/09/2018 4:12 PM CDT FINAL REPORT Procedure: Ultrasound guided drainage/chest tube insertion Indication: Left pleural effusion status post surgery Findings: Patient evaluated for ultrasound-guided drainage/chest tube insertion. Patient only has trace pleural fluid. Risk versus benefit of proceeding with procedure discussed with patient. Left pleural fluid is not amenable to ultrasound-guided drainage at this time. Signed: Faizan Conklin MD Report Verified Date/Time: 09/09/2018 16:10:40 Reading Location: [facility] P006 Ultrasound Reading Room Performing Organization Address City/State/Zipcode Phone Number [facility] * PT/aPTT (09/09/2018 10:00 AM CDT) Only the most recent of 2 results within the time period is included. Protime 13.6 11.9 - 14.2 seconds [facility] INR 1.1 <=5.9 [facility] PTT 33.7 22.5 - 36.0 seconds [facility] Specimen Blood Narrative Performed At Effective 07/07/2018: PT Reference Range Change [facility] New: 11.9-14.2Previous: 11.7-14.7 [facility] RECOMMENDED COUMADIN/WARFARIN INR THERAPY RANGES STANDARD DOSE: 2.0-3.0Includes: PROPHYLAXIS for venous thrombosis, systemic embolization; TREATMENT for venous thrombosis and/or pulmonary embolus. HIGH RISK: Target INR is 2.5-3.5 for patients wiht mechanical heart valves. Performing Organization Address City/State/Zipcode Phone Number [facility] [address] [place] [address] [facility] * XR abdomen acute series flat/uprt with uprt pa chest and/or decubs (09/08/2018 10:16 AM CDT) Specimen Narrative Performed At FINAL REPORT [facility] RIS RAD, ABDOMEN SERIES W/ UPRIGHT PA CHEST CLINICAL INDICATION: Distention, possible ileus/SBO COMPARISON: Radiograph 09/06/2017 TECHNIQUE: AP view of the chest, AP upright and supine views of the abdomen FINDINGS: Chest: Right IJ central venous catheter and left-sided Mediport are unchanged. There is a persistent left pleural effusion with left basilar atelectasis. No new focal consolidation or pneumothorax. Cardiomediastinal silhouette, daniela, and pulmonary vasculature are unchanged. Abdomen: Gastrostomy tube is unchanged. Right upper quadrant surgical clips and midline skin zully. No free air. There are scattered air fluid levels in distended small bowel loops primarily within the left upper abdomen. Other mildly dilated loops of small bowel in the lower abdomen. Nondistended colonic loops with small stool burden. Air is present distally within the rectum. No pneumatosis. IMPRESSION: 1.Unchanged small left pleural effusion. 2.Overall decrease in bowel caliber. Persistent air-fluid levels in distended small bowel loops primarily in the left upper abdomen. 3.No free air. Signed: Katheryn Spangler MD Report Verified Date/Time:09/08/2018 10:38:38 Reading Location: [facility] Radiology Reading Room Procedure Note Interface, External Ris In - 09/08/2018 10:40 AM CDT FINAL REPORT RAD, ABDOMEN SERIES W/ UPRIGHT PA CHEST CLINICAL INDICATION: Distention, possible ileus/SBO COMPARISON: Radiograph 09/06/2017 TECHNIQUE: AP view of the chest, AP upright and supine views of the abdomen FINDINGS: Chest: Right IJ central venous catheter and left-sided Mediport are unchanged. There is a persistent left pleural effusion with left basilar atelectasis. No new focal consolidation or pneumothorax. Cardiomediastinal silhouette, daniela, and pulmonary vasculature are unchanged. Abdomen: Gastrostomy tube is unchanged. Right upper quadrant surgical clips and midline skin zully. No free air. There are scattered air fluid levels in distended small bowel loops primarily within the left upper abdomen. Other mildly dilated loops of small bowel in the lower abdomen. Nondistended colonic loops with small stool burden. Air is present distally within the rectum. No pneumatosis. IMPRESSION: 1.Unchanged small left pleural effusion. 2.Overall decrease in bowel caliber. Persistent air-fluid levels in distended small bowel loops primarily in the left upper abdomen. 3.No free air. Signed: Katheryn Spangler MD Report Verified Date/Time: 09/08/2018 10:38:38 Reading Location: [facility] Radiology Reading Room Performing Organization Address City/State/Zipcode Phone Number [facility] * XR abdomen / KUB 1 view (09/06/2018 8:18 AM CDT) Specimen Narrative Performed At FINAL REPORT [facility] RAD, ABDOMEN/KUB, 1 VIEW AP CLINICAL INDICATION: eval ileus COMPARISON: Radiograph 02/27/2011 TECHNIQUE: AP supine view of the abdomen FINDINGS: Supine positioning limits evaluation for free air. There are numerous air-filled nondistended loops of small and large bowel throughout the abdomen. Small stool burden present in the rectum. No pneumatosis. Skin zully at the midline abdomen, and a drain is present on the left. Cholecystectomy clips are present. Left total hip arthroplasty and right proximal femoral fixation, partially visualized. IMPRESSION: Nonobstructive bowel gas pattern. Signed: Katheryn Spangler MD Report Verified Date/Time:09/06/2018 08:42:06 Reading Location: [facility] Radiology Reading Room Procedure Note Interface, External Ris In - 09/06/2018 8:44 AM CDT FINAL REPORT RAD, ABDOMEN/KUB, 1 VIEW AP CLINICAL INDICATION: eval ileus COMPARISON: Radiograph 02/27/2011 TECHNIQUE: AP supine view of the abdomen FINDINGS: Supine positioning limits evaluation for free air. There are numerous air-filled nondistended loops of small and large bowel throughout the abdomen. Small stool burden present in the rectum. No pneumatosis. Skin zully at the midline abdomen, and a drain is present on the left. Cholecystectomy clips are present. Left total hip arthroplasty and right proximal femoral fixation, partially visualized. IMPRESSION: Nonobstructive bowel gas pattern. Signed: Katheryn Spangler MD Report Verified Date/Time: 09/06/2018 08:42:06 Reading Location: [facility] Radiology Reading Room Performing Organization Address City/[facility] Phone Number [facility] * Calcium, Ionized (09/05/2018 4:19 AM CDT) Only the most recent of 9 results within the time period is included. Calcium, Ion 1.09 (L) 1.12 - 1.27 mmol/L [facility] pH, Blood 7.42 [facility] Specimen Blood Performing Organization Address City/[facility]/Zipcode Phone Number [facility] [address] [place] [address] [facility] * TRANSFUSION SERVICE REPORT - SCAN (09/03/2018 5:52 PM CDT) Only the most recent of 4 results within the time period is included. Narrative Performed At * Prepare RBC (09/02/2018 11:54 PM CDT) Only the most recent of 2 results within the time period is included. Unit ABO O Pos [facility] [place] UNIT NUMBER [id number] [facility] [place] Status TX_TIMEINCHART [facility] [place] Blood Bank Product RED BLOOD CELLS [facility] [place] PRODUCT CODE [id number] [facility] [place] Unit ABO O Pos [facility] [place] UNIT NUMBER [id number] [facility] [place] Status TX_TIMEINCHART [facility] [place] Blood Bank Product RED BLOOD CELLS [facility] [place] PRODUCT CODE [id number] [facility] TX Unit ABO O Pos [place] TX UNIT NUMBER [id number] [facility] [place] Status READY [facility] TX Blood Bank Product RED BLOOD CELLS [facility] [place] PRODUCT CODE [id number] [facility] TX Unit ABO O Pos [facility]ET[facility] TX UNIT NUMBER [id number] [facility] TX Status READY [facility] TX Blood Bank Product RED BLOOD CELLS [facility] [place] PRODUCT CODE [id number] [facility] [place] CROSSMATCH COMPATIBLE [facility] TX CROSSMATCH COMPATIBLE S[facility] TX CROSSMATCH COMPATIBLE [facility] CROSSMATCH COMPATIBLE [place] Performing Organization Address [facility] Phone Number [facility] [place] * Hemoglobin and hematocrit (09/01/2018 2:45 PM CDT) Hemoglobin 8.9 (L) 11.2 - 15.7 GM/DL [facility] Hematocrit 28.4 (L) 34.1 - 44.9 % [facility] Specimen Blood Narrative Performed At Collect when done transfusing [facility] Performing Organization Address [facility] Phone Number [address] [address] [facility] * Transfuse Leuko-Red RBC (09/01/2018 2:16 PM CDT) Only the most recent of 3 results within the time period is included. * Triglycerides (09/01/2018 3:25 AM CDT) Triglycerides 89 mg/dL [facility] Specimen Blood Narrative Performed At TRIGLYCERIDE REFERENCE RANGE [facility] Low Risk<150 [facility] Borderline Risk 150-199 High Kcig802-802 Very High Risk >=500 Performing Organization Address [facility] Phone Number [address] [address] [facility] * Comprehensive metabolic panel (09/01/2018 3:25 AM CDT) Only the most recent of 2 results within the time period is included. Protein, Total 4.6 (L) 6.0 - 8.3 gm/dL [facility] Albumin 2.3 (L) 3.5 - 5.0 g/dL [facility] Alkaline Phosphatase 93 40 - 150 U/L [facility] Total Bilirubin 0.2 0.2 - 1.2 mg/dL [facility] Sodium 137 136 - 145 meq/L [facility] Potassium 3.6 3.5 - 5.1 meq/L [facility] Chloride 110 (H) 98 - 107 meq/L [facility] CO2 25 22 - 29 meq/L [facility] BUN 17 7 - 21 mg/dL [facility] Creatinine 0.69 0.57 - 1.25 mg/dL [facility] Glucose 103 70 - 105 mg/dL [facility] Calcium 7.8 (L) 8.4 - 10.2 mg/dL [facility] AST 34 5 - 34 U/L [facility] ALT 25 6 - 55 U/L [facility] EGFR 87Comment: ESTIMATED GFR IS mL/min/1.73 sq m [facility] NOT ACCURATE CREATININE [facility] CLEARANCE IN PREDICTING GLOMERULAR FILTRATION RATE. ESTIMATED GFR IS NOT APPLICABLE FOR DIALYSIS PATIENTS. Specimen Blood Performing Organization Address City/State/Zipcode Phone Number [facility] [address] [place] [address] [facility] * Potassium-Stat Lab (08/30/2018 4:59 PM CDT) Only the most recent of 4 results within the time period is included. Potassium 4.2 3.6 - 5.5 meq/L [facility] Specimen Blood, Arterial Performing Organization Address [facility] [place] [address] [phone] * Sodium Na-Stat Lab (08/30/2018 4:59 PM CDT) Only the most recent of 4 results within the time period is included. Sodium 138 135 - 148 meq/L [facility] Specimen Blood, Arterial Performing Organization Address [facility] [place] [address] [phone] [place] [address] * Glucose-Stat Lab (08/30/2018 4:59 PM CDT) Only the most recent of 4 results within the time period is included. Glucose 156 (H) 70 - 110 mg/dL [facility] Specimen Blood, Arterial Performing Organization Address [facility] Phone Number [address] * HGB/HCT (H&H)-Stat Lab (08/30/2018 4:59 PM CDT) Only the most recent of 4 results within the time period is included. Hemoglobin 9.6 (L) 12.0 - 15.0 g/dL [facility] Hematocrit 28.0 (L) 36.0 - 45.0 % [facility] Specimen Blood, Arterial Performing Organization Address [facility] [place] [address] [phone] * Blood gas, arterial (08/30/2018 4:59 PM CDT) Only the most recent of 4 results within the time period is included. pH, Arterial 7.33 (L) 7.35 - 7.45 [facility] pCO2, Arterial 43 35 - 45 mmHg [facility] pO2, Arterial 274 (H) 80 - 90 mmHg [facility] O2 Sat, Arterial 99.6 (H) 96.0 - 97.0 % [facility] HCO3, Arterial 22 21 - 29 mmol/L [facility] Base Excess, Arterial -3.8 (L) -2.0 - 3.0 mmol/L [facility] Patient Temperature 37.4 C [facility] FIO2 50.0 % [facility] Specimen Blood, Arterial Performing Organization Address City/State/Zipcode Phone Number [facility] [address] [place] [address] [facility] * Tissue Exam (08/30/2018 4:25 PM CDT) Only the most recent of 2 results within the time period is included. Case Report Surgical Pathology [facility] Report [facility] Case: [id number] Authorizing Provider:Donaldo Cooper MD Collected: 08/30/2018 0931 Ordering Location: [facility] Received: 08/30/2018 1411 PERIOPERATIVE SERVICES Pathologist: Stephanie Edgar MD Specimens: A) - Rib, Left, PIECE OF RIB B) - Small Bowel, NOS, SMALL BOWEL #1 C) - Small Bowel, NOS, SMALL BOWEL #2 DIAGNOSIS A. RIB, LEFT, REMOVAL: [facility] - RIB IDENTIFIED (GROSS [facility] DIAGNOSIS) B. SMALL BOWEL, LABELED "#1", RESECTION: - FOCAL MUCOSAL ISCHEMIC CHANGES - ACUTE SEROSITIS WITH FOCAL SEROSAL HEMORRHAGE AND ADHESION - VIABLE SURGICAL RESECTION MARGINS C. SMALL BOWEL, LABELED "#2", RESECTION: - FOCAL MUCOSAL ISCHEMIC CHANGES - ACUTE SEROSITIS WITH SEROSAL HEMORRHAGE AND ADHESION - VIABLE SURGICAL RESECTION MARGINS Signing Pathologist Direct Phone Line: [phone] CPT Code(s) 87421, 05242 x 2 [facility] CLINICAL HISTORY Hiatal hernia, partial [facility] intestinal obstruction, [facility] unspecified cause SPECIMEN SOURCE A. Rib, left, piece of rib; B. [facility] Small bowel, NOS; C. [facility] bowel, Nos #2 GROSS DESCRIPTION A. The case is received in one [facility] part labeled with the [facility] patient's name, Sneha Carlisle, date of 1960 and accession number [id number] which corresponds to accompanying requisition page labeled with the same name and accession number. Received in formalin labeled "rib, left" is a 2.0 x 1.3 x 0.5 cm red-brown portion of bone with two smooth surgical ends and minimal attached soft tissue. The medullary bone is davidson- brown. No sections are submitted. Gross photographs are taken. This case is gross only. RP/pl B. Received fresh labeled with the patient's name, accession number and "small bowel, NOS" is an unoriented segment of small bowel measuring 13.5 cm in length and 3 cm in diameter. There is a minimal amount of attached, partially hemorrhagic adipose tissue. The serosa is dusky, lavender-maroon to pink and smooth to shaggy. The specimen is opened to reveal edematous, lavender-pink to davidson smooth mucosa. No gross lesions are identified. Lymph nodes are not present in the adipose tissue. Disease Management Nurse sections are submitted. Section code: B1, fuels sales representative of each margin, en face; B2-B4, fuels sales representative sections. C. Received fresh labeled with the patient's name, accession number and "small bowel #2" is an unoriented segment of small bowel measuring 10.5 cm in length and 2.5 cm in diameter. There is a minimal amount of attached adipose tissue with focal areas of hemorrhage. The serosa is dusky, lavender-maroon to pink, smooth to shaggy with petechial hemorrhages and areas of adhesions throughout. The specimen is opened to reveal davidson-pink, smooth, slightly edematous mucosa with no gross lesions. Lymph nodes are not present in the adipose tissue. Disease Management Nurse sections are submitted. Section code: C1, fuels sales representative of each end, en face; C2-C4, fuels sales representative sections. CG/pl MICROSCOPIC DESCRIPTION Performed. [facility] Specimen Tissue Performing Organization Address City/State/Zipcode Phone Number [facility] [address] [place] [address] [facility] * ANESTHESIA EPIDURAL BLOCK (08/30/2018 1:44 PM CDT) Narrative Performed At Marco Payne MD 08/30/20181:46 PM Epidural Block Patient location during procedure: OR Start time: 08/30/2018 8:10 AM End time: 08/30/2018 8:20 AM Procedure Indication: post-op pain management Staffing Anesthesiologist: Marco Payne MD Preanesthetic Checklist Completed: patient identified, pre-op evaluation, timeout performed, IV checked, risks and benefits discussed, monitors and equipment checked, anesthesia consent given, prep site dry prior to draping and maximum sterile barriers were used: cap, mask, sterile gown, sterile gloves, and large sterile sheet Prep Prep: chlorhexidine gluconate and isopropyl alcohol Procedures: sterile gloves, surgical mask, surgical hat, sterile technique and prep and sterile drape applied Epidural Patient position: sitting Patient monitoring: EKG, HR, SpO2 and BP Approach: midline landmark technique and landmark technique Location: thoracic Level:7-8 Injection technique: ANTONETTE saline Epidural Needle Needle type: Tuohy Needle gauge: 17 G Needle length: 9 cm Catheter Type: Epidural Catheter type: end hole Catheter size: Other (21g) Catheter at Skin Depth: Catheter at skin depth: Other (13 cm) Assessmentinjection not painful, no injection resistance, no paresthesia, no cerebrospinal fluid, no intravascular injection, no epidural blood return and no intrathecal medication injection patient tolerated the procedure well and patient had no immediate complications Procedure Note Marco Payne MD - 08/30/2018 1:44 PM CDT Epidural Block Patient location during procedure: OR Start time: 08/30/2018 8:10 AM End time: 08/30/2018 8:20 AM Procedure Indication: post-op pain management Staffing Anesthesiologist: Marco Payne MD Preanesthetic Checklist Completed: patient identified, pre-op evaluation, timeout performed, IV checked, risks and benefits discussed, monitors and equipment checked, anesthesia consent given, prep site dry prior to draping and maximum sterile barriers were used: cap, mask, sterile gown, sterile gloves, and large sterile sheet Prep Prep: chlorhexidine gluconate and isopropyl alcohol Procedures: sterile gloves, surgical mask, surgical hat, sterile technique and prep and sterile drape applied Epidural Patient position: sitting Patient monitoring: EKG, HR, SpO2 and BP Approach: midline landmark technique and landmark technique Location: thoracic Level: 7-8 Injection technique: ANTONETTE saline Epidural Needle Needle type: Tuohy Needle gauge: 17 G Needle length: 9 cm Catheter Type: Epidural Catheter type: end hole Catheter size: Other (21g) Catheter at Skin Depth: Catheter at skin depth: Other (13 cm) Assessmentinjection not painful, no injection resistance, no paresthesia, no cerebrospinal fluid, no intravascular injection, no epidural blood return and no intrathecal medication injection patient tolerated the procedure well and patient had no immediate complications * XR chest 2 views (08/26/2018 2:45 PM CDT) Specimen Narrative Performed At FINAL REPORT [facility] CHEST, AP AND LATERAL. HISTORY: Internal hernia. COMPARISON: 08/10/2011. Impression: There is a left chest port with catheter tip terminating at the cavoatrial junction. The trachea is midline. There is stable mild elevation of the right hemidiaphragm. There is no evidence for focal consolidation, pneumothorax, or significant pleural effusion. Vertebral augmentation changes noted within the mid thoracic spine. No acute osseous abnormality is identified. The surrounding soft tissues are unremarkable. Signed: Jesus Clemente MD Report Verified Date/Time:08/26/2018 15:36:00 Reading Location: [facility] Consult Reading Room Procedure Note Interface, External Ris In - 08/26/2018 3:38 PM CDT FINAL REPORT CHEST, AP AND LATERAL. HISTORY: Internal hernia. COMPARISON: 08/10/2011. Impression: There is a left chest port with catheter tip terminating at the cavoatrial junction. The trachea is midline. There is stable mild elevation of the right hemidiaphragm. There is no evidence for focal consolidation, pneumothorax, or significant pleural effusion. Vertebral augmentation changes noted within the mid thoracic spine. No acute osseous abnormality is identified. The surrounding soft tissues are unremarkable. Signed: Jesus Clemente MD Report Verified Date/Time: 08/26/2018 15:36:00 Reading Location: [facility] B1 [id number] Consult Reading Room Performing Organization Address City/State/Zipcode Phone Number GE RIS * ECG 12 lead (08/26/2018 2:18 PM CDT) Specimen Narrative Performed At Ventricular Rate 75 BPM GE MUSE Atrial Rate 75 BPM P-R Interval 136 ms QRS Duration 76 ms Q-T Interval 382 ms QTC Calculation(Bazett) 426 ms P Ledbetter 28 degrees R Ledbetter 2 degrees T Ledbetter 11 degrees Sinus rhythm with Premature supraventricular complexes Otherwise normal ECG When compared with ECG of 10-AUG-2011 23:38, Premature supraventricular complexes are now Present Confirmed by MD ACOSTA YOCHAI ([id number]) on 08/27/2018 6:32:02 AM Procedure Note Interface, External Ris In - 08/27/2018 6:32 AM CDT Ventricular Rate 75 BPM Atrial Rate 75 BPM P-R Interval 136 ms QRS Duration 76 ms Q-T Interval 382 ms QTC Calculation(Bazett) 426 ms P Ledbetter 28 degrees R Ledbetter 2 degrees T Ledbetter 11 degrees Sinus rhythm with Premature supraventricular complexes Otherwise normal ECG When compared with ECG of 10-AUG-2011 23:38, Premature supraventricular complexes are now Present Confirmed by MD ACOSTA YOCHAI ([id number]) on 08/27/2018 6:32:02 AM Performing Organization Address City/[facility] Phone Number [facility] M[facility] * Type and screen, automated (08/26/2018 2:13 PM CDT) ABO/RH AUTOMATED (BEAKER) O POSITIVE [facility] Ab Scrn NEGATIVE [facility] Specimen Blood Performing Organization Address City/[facility] Phone Number [address] [address] [facility] * POC-Hemoglobin meter (08/10/2018 12:56 PM CDT) POC-Hemoglobin Meter 10.0 (L)Comment: TESTED AT 12.0 - 15.0 g/dL [facility] [address] [id number] Specimen Blood Performing Organization Address [facility] Phone Number [place] [phone] [place] [address] [facility] after 10/10/2017 Insurance Payer Benefit Subscriber ID Type Phone Address Plan / Group MEDICARE MEDICARE A xxxxxxxxxxx Medicare B BLUE CROSS/BLUE SHIELD BCBS OS xxxxxxxxxxxx PPO [phone] [address] POS/PPO/[place] [address] O Advance Directives Patient has advance care planning documents, and code status on file. For more i nformation, please contact: [facility] [address] [place] [address] Date Inactivated Comments Code Status Date Activated 09/14/2018 5:39 PM Full Code 08/30/2018 6:13 AM This code status was determined by: Patient
--- OUTSIDE RECORDS SUMMARY | 2018-10-11 16:23 | XMS REPORT | CCD ---
Author Author Auto Generated Organization [facility] Address Unknown Phone Unavailable Care Team Providers Care Adoption Specialist Name Role Phone Last Topete CP Allergies, Adverse Reactions, Alerts Substance Reaction Status ciprofloxacin Active codeine Active Demerol HCl Active Dexamethasone Sodium Phosphate Active Imitrex Active Imodium A-D Active iodine Active Keflex Active penicillins Active sulfa drugs Active Talwin Active Problem List Condition Effective Dates Status Cataracts Resolved Chondromalacia of patella1 Resolved Constipation Resolved Depression Resolved Fibromyalgia Resolved Nausea and vomiting2 Resolved Osteoporosis Resolved Pernicious anemia Resolved Renal impairment3 Resolved Scleroderma Resolved 1bilat 2chronic per pt report 3per pt report Medications Medication Instructions Start Date End Date Status Toradol 30 mg/mL 30 mg, Route: IV, ONCE, Dosing 08/09/2012 08/09/2012 Completed injectable solution Weight 81.364, kg, Start date: 08/09/12 0:23:00, Stop date: 08/09/12 0:23:00 senna 8.6 mg oral 17.2 mg, 2 tab, Route: PO, Drug 08/11/2012 08/15/2012 Discontinued tablet Form: TAB, Dosing Weight 81.3, kg, BID, PRN as needed for constipation, Start date: 08/11/12 12:18:00, Duration: 30 day, Stop date: 09/10/12 12:17:00 Toradol 30 mg/mL 30 mg, 1 mL, Route: IV, Drug form: 08/09/2012 08/09/2012 Canceled injectable solution INJ, Q6H, Dosing Weight 81.364, kg, Start date: 08/09/12 12:00:00, Duration: 2 day, Stop date: 08/11/12 6:00:00 MiraLax 17 gm, 1 pkt, Route: PO, Drug form: 08/11/2012 08/15/2012 Discontinued PWDR, Daily, Dosing Weight 81.3, kg, PRN Constipation, Start date: 08/11/12 12:18:00, Duration: 30 day, Stop date: 09/10/12 12:17:00 MiraLax 17 gm, 1 pkt, Route: PO, Drug form: 08/12/2012 08/15/2012 Discontinued PWDR, Daily, Dosing Weight 81.3, kg, Start date: 08/12/12 9:00:00, Duration: 30 day, Stop date: 09/10/12 9:00:00 Norvasc 10 mg oral 10 mg, 1 tab, PO, Daily, 30 tab, 08/09/2012 Ordered tablet Substitution Allowed, TAB Topamax 200 mg, PO, Bedtime, Substitution 08/09/2012 Ordered Allowed, TAB Cymbalta 30 mg, PO, Bedtime, Substitution 08/09/2012 Ordered Allowed, TAB naloxone 0.04 mg, 0.04 mL, Route: IVP, Drug 08/10/2012 08/15/2012 Discontinued form: INJ, Q2MIN, Dosing Weight 81.3, kg, PRN Narcotic Reversal, Start date: 08/10/12 18:45:00, Duration: 30 day, Stop date: 09/09/12 18:44:00 ropivacaine 0.1% in Dosing: Per Nerve Block Dosing 08/10/2012 08/15/2012 Discontinued NS - site 1 250 mL Order, Route: NERVE BLOCK, Start date: 08/10/12 18:45:00 250 mL, Drug Form: SOLN, Dosing Weight 81.3, kg, Duration: 30 day, Stop date: 09/09/12 18:44:00 ketorolac 15 mg, 1 mL, Route: IVP, Drug form: 08/10/2012 08/10/2012 Discontinued INJ, ONCE, Dosing Weight 81.3, kg, Start date: 08/10/12 18:45:00, Duration: 1 doses or times, Stop date: 08/10/12 18:45:00 ondansetron 4 mg, 2 mL, Route: IVP, Drug form: 08/10/2012 08/13/2012 Completed INJ, ONCE, Dosing Weight 81.3, kg, PRN Nausea & Vomiting, Start date: 08/10/12 18:45:00, Duration: 1 doses or times, Stop date: Limited # of times Remeron SolTab 45 mg, PO, allow tablet to dissolve 08/09/2012 Ordered on tongue, Substitution Allowed, TAB allow tablet to dissolve on tongue Zofran 4 mg, 2 mL, Route: IVP, Drug form: 08/09/2012 08/10/2012 Discontinued INJ, Q4H, Dosing Weight 81.3, kg, PRN Nausea, Start date: 08/09/12 11:20:00, Duration: 30 day, Stop date: 09/08/12 11:19:00 Dilaudid 1 mg, 1 mL, Route: IV, Drug form: 08/09/2012 08/15/2012 Discontinued SOLN, Q3H, Dosing Weight 81.3, kg, PRN Pain, Start date: 08/09/12 11:20:00, Duration: 30 day, Stop date: 09/08/12 11:19:00 Macrodantin 100 mg, PO, Daily, Substitution 08/09/2012 Ordered Allowed, TAB Neurontin 100 mg 100 mg, 1 cap, PO, BID, 08/09/2012 Ordered oral capsule Substitution Allowed, TAB Sodium Chloride 0.9% IV, 30 ml/hr, ONCALL, Start date: 08/13/2012 08/15/2012 Discontinued IV 08/13/12 23:00:00, Duration: 1, 250 ml Zofran 4 mg, PO, Q6H, PRN, as needed for 08/09/2012 Ordered nausea/vomiting, Substitution Allowed, TAB [place] 10/325 oral 1 tab, PO, Q6H, PRN, as needed for 08/09/2012 08/14/2012 Discontinued tablet pain, Substitution Allowed, Maintenance, TAB Cymbalta Cymbalta (DULoxetine) 150 mg tab 08/12/2012 08/15/2012 Discontinued (DULoxetine) 150 mg Pt's Own MED, 150 mg, Drug tab Pt's Own MED form: MISC, Route: PO, Q8PM, 08/12/12 20:00:00, Duration: 30 day, Stop date: 09/10/12 20:00:00 gabapentin 100 mg 100 mg, 1 cap, Route: PO, Drug 08/11/2012 08/12/2012 Discontinued oral capsule form: CAP, BID, Dosing Weight 81.3, kg, Start date: 08/11/12 17:00:00, Duration: 30 day, Stop date: 09/10/12 9:00:00 Zofran 4 mg, Route: IVP, Drug form: INJ, 08/08/2012 08/08/2012 Completed ONCE, Dosing Weight 81.364, kg, Priority: STAT, Start date: 08/08/12 23:32:00, Stop date: 08/08/12 23:32:00 Lactated Ringers IV 1,000 mL, Rate: 25 ml/hr, Infuse 08/10/2012 08/10/2012 Discontinued 1,000 mL over: 40 hr, Route: IV, Dosing Weight 81.3 kg, Total Volume: 1,000, Start date: 08/10/12 14:24:00, Duration: 30 day, Stop date: 09/09/12 14:23:00 Saline Flush 0.9% 5 ml, Route: IVP, Drug Form: INJ, 08/10/2012 08/15/2012 Discontinued Dosing Weight 81.3, kg, PRN, PRN Line Flush, Start date: 08/10/12 16:05:00, Duration: 30 day, Stop date: 09/09/12 16:04:00 D5W 1/2NS + KCL 1,000 mL, Rate: 75 ml/hr, Infuse 08/10/2012 08/15/2012 Discontinued 20mEq/L 1000ml over: 13.3 hr, Route: IV, Dosing (Premix) 1,000 mL Weight 81.3 kg, Total Volume: 1,000, Start date: 08/10/12 16:05:00, Duration: 30 day, Stop date: 09/09/12 16:04:00 vancomycin (SCIP) 1 gm, 200 mL, Route: IVPB, Drug 08/11/2012 08/11/2012 Completed form: INJ, [id number], Dosing Weight 81.3, kg, Start date: 08/11/12 3:00:00, Duration: 1 doses or times, Stop date: 08/11/12 3:00:00, Pharmacy to adjust dose for renal function Pharmacy to adjust dose for renal function Milk of Magnesia 30 ml, Route: PO, Drug Form: SUSP, 08/10/2012 08/15/2012 Discontinued Dosing Weight 81.3, kg, BID, PRN as needed for constipation, Start date: 08/10/12 16:05:00, Duration: 30 day, Stop date: 09/09/12 16:04:00 promethazine 12.5 mg, 0.5 mL, Route: IM, Drug 08/10/2012 08/15/2012 Discontinued form: INJ, Q4H, Dosing Weight 81.3, kg, PRN Nausea & Vomiting, Start date: 08/10/12 16:05:00, Duration: 30 day, Stop date: 09/09/12 16:04:00 docusate 100 mg, 1 cap, Route: PO, Drug 08/10/2012 08/15/2012 Discontinued form: CAP, BID, Dosing Weight 81.3, kg, PRN Constipation, Start date: 08/10/12 16:05:00, Duration: 30 day, Stop date: 09/09/12 16:04:00 morphine Sulfate 4 mg, 2 mL, Route: IVP, Drug form: 08/10/2012 08/15/2012 Discontinued INJ, Q3H, Dosing Weight 81.3, kg, PRN Pain Score 4-6, Start date: 08/10/12 16:05:00, Duration: 30 day, Stop date: 09/09/12 16:04:00 acetaminophen-hydroc 2 tab, Route: PO, Drug Form: TAB, 08/10/2012 08/15/2012 Discontinued odone 325 mg-5 mg Dosing Weight 81.3, kg, Q4H, PRN oral tablet Pain Score 4-6, Start date: 08/10/12 16:05:00, Duration: 30 day, Stop date: 09/09/12 16:04:00 acetaminophen-hydroc 1 tab, Route: PO, Drug Form: TAB, 08/10/2012 08/15/2012 Discontinued odone 325 mg-5 mg Dosing Weight 81.3, kg, Q4H, PRN oral tablet Pain Score 1-3, Start date: 08/10/12 16:05:00, Duration: 30 day, Stop date: 09/09/12 16:04:00 morphine Sulfate 2 mg, 1 mL, Route: IVP, Drug form: 08/10/2012 08/15/2012 Discontinued INJ, Q3H, Dosing Weight 81.3, kg, PRN Pain Score 1-3, Start date: 08/10/12 16:05:00, Duration: 30 day, Stop date: 09/09/12 16:04:00 ketorolac 15 mg, 1 mL, Route: IVP, Drug form: 08/10/2012 08/12/2012 Completed INJ, Q6H, Dosing Weight 81.3, kg, Start date: 08/10/12 18:00:00, Duration: 6 doses or times, Stop date: 08/12/12 0:00:00 ondansetron 4 mg, 2 mL, Route: IVP, Drug form: 08/10/2012 08/15/2012 Discontinued INJ, Q4H, Dosing Weight 81.3, kg, PRN Nausea & Vomiting, Start date: 08/10/12 16:05:00, Duration: 30 day, Stop date: 09/09/12 16:04:00 diphenhydrAMINE 25 mg, 1 tab, Route: PO, Drug form: 08/10/2012 08/15/2012 Discontinued TAB, Bedtime, Dosing Weight 81.3, kg, PRN Insomnia, Start date: 08/10/12 16:05:00, Duration: 30 day, Stop date: 09/09/12 16:04:00 enoxaparin 40 mg, 0.4 mL, Route: SUB-Q, Drug 08/11/2012 08/15/2012 Discontinued form: INJ, Q24H, Dosing Weight 81.3, kg, Start date: 08/11/12 5:00:00, Duration: 30 day, Stop date: 09/09/12 5:00:00 diphenhydrAMINE 25 mg, 1 tab, Route: PO, Drug form: 08/10/2012 08/15/2012 Discontinued TAB, Q6H, Dosing Weight 81.3, kg, PRN Itching, Start date: 08/10/12 16:05:00, Duration: 30 day, Stop date: 09/09/12 16:04:00 diphenhydrAMINE 25 mg, 0.5 mL, Route: IM, Drug 08/10/2012 08/15/2012 Discontinued form: INJ, Q6H, Dosing Weight 81.3, kg, PRN Itching, Start date: 08/10/12 16:05:00, Duration: 30 day, Stop date: 09/09/12 16:04:00 Fleet Enema Route: [place], Dosing Weight 81.3, kg, 08/10/2012 08/10/2012 Deleted [id number], PRN as needed for constipation, Start date: 08/10/12 16:05:00, Duration: 30 day, Stop date: 09/09/12 16:04:00 Sodium Chloride 0.9% 250 mL, Rate: [employer] for use with 08/09/2012 08/09/2012 Completed (titrate) 250 mL blood product administration., Dosing Weight 81.364, kg, Route: IV, Total Volume: 250, Priority: Routine, Duration: 12 hr, Stop date: 08/09/12 15:42:00, Replace Every: 24 hr Carafate 1 g/10 mL 1 gm, 10 mL, PO, BID, Substitution 08/09/2012 Ordered oral suspension Allowed, ELIX Bentyl 10 mg/5 mL PO, QID, PRN, esophageal spasms, 08/09/2012 Ordered oral syrup Substitution Allowed, ELIX Zofran 4 mg, Route: IVP, Drug form: INJ, 08/10/2012 08/10/2012 Completed ONCE, Dosing Weight 81.3, kg, Start date: 08/10/12 17:57:00, Stop date: 08/10/12 17:57:00 lovastatin 20 mg 20 mg, 1 tab, PO, Daily, 30 tab, 08/09/2012 Ordered oral tablet Substitution Allowed, TAB Ativan 2 mg oral 4 mg, 2 tab, PO, Bedtime, 08/09/2012 Ordered tablet Substitution Allowed, TAB Diovan 160 mg oral 160 mg, 1 tab, PO, Bedtime, 08/09/2012 08/14/2012 Discontinued tablet Substitution Allowed, TAB Remeron SolTab 45 mg, Route: PO, Drug form: TAB, 08/11/2012 08/11/2012 Deleted Bedtime, Dosing Weight 81.3, kg, Start date: 08/11/12 21:00:00, Duration: 30 day, Stop date: 09/09/12 21:00:00 Toradol 30 mg/mL 30 mg, 1 mL, Route: IV, Drug form: 08/09/2012 08/09/2012 Discontinued injectable solution INJ, Q6H, Dosing Weight 81.364, kg, PRN Pain, Start date: 08/09/12 9:53:00, Duration: 2 day, Stop date: 08/11/12 9:52:00 morphine Sulfate 4 mg, Route: IVP, Drug form: INJ, 08/08/2012 08/08/2012 Completed ONCE, Dosing Weight 81.364, kg, Priority: STAT, Start date: 08/08/12 23:32:00, Stop date: 08/08/12 23:32:00 morphine Sulfate 4 mg, Route: IVP, Drug form: INJ, 08/09/2012 08/09/2012 Completed ONCE, Dosing Weight 81.364, kg, Priority: STAT, Start date: 08/09/12 4:19:00, Stop date: 08/09/12 4:19:00 heparin flush 500 unit, 5 mL, Route: IVP, Drug 08/14/2012 08/15/2012 Discontinued form: SOLN, Q30D, PRN See Nurse's Notes, Start date: 08/14/12 21:07:00, Duration: 30 day, Stop date: 09/13/12 21:06:00 Sodium Chloride 0.9% 20 mL, Route: IVP, Start date: 08/14/2012 08/15/2012 Discontinued IV 08/14/12 21:05:00, Duration: 30 day, Stop date: 09/13/12 21:04:00, PRN See Nurse's Notes ondansetron 4 mg, 2 mL, Route: IVP, Drug form: 08/09/2012 08/10/2012 Discontinued INJ, Q8H, Dosing Weight 81.364, kg, PRN Nausea & Vomiting, Start date: 08/09/12 6:33:00, Duration: 30 day, Stop date: 09/08/12 6:32:00 morphine Sulfate 2 mg, 1 mL, Route: IVP, Drug form: 08/09/2012 08/09/2012 Discontinued INJ, Q3H, Dosing Weight 81.364, kg, PRN Pain Score 4-6, Start date: 08/09/12 6:33:00, Duration: 30 day, Stop date: 09/08/12 6:32:00 Saline Flush 0.9% 5 ml, Route: IVP, Drug Form: INJ, 08/09/2012 08/15/2012 Discontinued Dosing Weight 81.364, kg, PRN, PRN Line Flush, Start date: 08/09/12 6:33:00, Duration: 30 day, Stop date: 09/08/12 6:32:00 Sodium Chloride 0.9% 1,000 mL, Rate: 125 ml/hr, Infuse 08/09/2012 08/10/2012 Discontinued IV 1,000 mL over: 8 hr, Route: IV, Dosing Weight 81.364 kg, Total Volume: 1,000, Start date: 08/09/12 6:33:00, Duration: 30 day, Stop date: 09/08/12 6:32:00 Sodium Chloride 0.9% 10 mL, Route: IVP, Start date: 08/14/2012 08/15/2012 Discontinued IV 08/14/12 21:05:00, Duration: 30 day, Stop date: 09/13/12 21:04:00, PRN See Nurse's Notes gabapentin 100 mg 100 mg, 1 cap, Route: PO, Drug 08/12/2012 08/15/2012 Discontinued oral capsule form: CAP, Q8H, Dosing Weight 81.3, kg, Start date: 08/12/12 16:00:00, Duration: 30 day, Stop date: 09/11/12 8:00:00 vancomycin 1 gm, 200 mL, Route: IVPB, Drug 08/10/2012 08/10/2012 Completed form: INJ, ONCALL, Start date: 08/10/12 6:00:00, Duration: 1 day, Stop date: 08/11/12 5:59:00 doxycycline 100 mg, PO, BID, Substitution 08/09/2012 08/14/2012 Discontinued Allowed, TAB Lamisil 250 mg, PO, Daily, 30 tab, 08/09/2012 09/07/2012 Ordered Substitution Allowed, TAB Cymbalta 150 mg, Route: PO, Q8PM, Dosing 08/12/2012 08/12/2012 Deleted Weight 81.3, kg, Start date: 08/12/12 20:00:00, Duration: 30 day, Stop date: 09/10/12 20:00:00 Remeron SolTab 45mg Remeron SolTab 45mg po bedtime*Pts 08/11/2012 08/15/2012 Discontinued po bedtime*Pts own own med*, 90 mg, Drug form: MISC, med* Route: PO, Bedtime, 08/11/12 21:00:00, Duration: 30 day, Stop date: 09/09/12 21:00:00 Vital Signs Most recent to oldest [Reference Range]: 1 2 3 Height 162.5 cm (08/09/2012 11:14:00) 162.56 cm (08/08/2012 22:44:00) Current Weight 82.273 kg (08/14/2012 17:24:00) 82.273 kg (08/12/2012 15:19:00) Temperature Oral [96.4-99.1 DegF] 99 DegF (08/14/2012 20:00:00) 99 DegF (08/14/2012 20:00:00) 98.9 DegF (08/14/2012 16:56:00) Systolic Blood Pressure [90-140 mmHg] 136 mmHg (08/14/2012 20:00:00) 136 mmHg (08/14/2012 20:00:00) 133 mmHg (08/14/2012 16:56:00) Diastolic Blood Pressure [60-90 mmHg] 68 mmHg (08/14/2012 20:00:00) 68 mmHg (08/14/2012 20:00:00) 85 mmHg (08/14/2012 16:56:00) Respiratory Rate [14-20 BRMIN] 16 BRMIN (08/14/2012 20:00:00) 16 BRMIN (08/14/2012 20:00:00) 20 BRMIN (08/14/2012 16:56:00) Peripheral Pulse Rate [60-100 bpm] 80 bpm (08/14/2012 20:00:00) 80 bpm (08/14/2012 20:00:00) 81 bpm (08/14/2012 16:56:00) Weight 81.3 kg (08/09/2012 11:14:00) 81.364 kg (08/08/2012 22:44:00) Results URINALYSIS Most recent to oldest [Reference Range]: 1 2 3 UA Turbidity [Clear] Slight *ABN* (08/09/2012 02:30:00) UA Color [Yellow] Yellow *NA* (08/09/2012 02:30:00) UA pH [5.0-8.0] 5.0 (08/09/2012 02:30:00) UA Spec Grav [<=1.030] 1.021 (08/09/2012 02:30:00) UA Glucose [Negative mg/dL] Negative mg/dL *NA* (08/09/2012 02:30:00) UA Blood [Negative] Negative (08/09/2012 02:30:00) UA Ketones [Negative mg/dL] Negative mg/dL *NA* (08/09/2012 02:30:00) UA Protein [Negative mg/dL] Negative mg/dL (08/09/2012 02:30:00) UA Urobilinogen [0.1-1.0 mg/dL] <=1.0 mg/dL *NA* (08/09/2012 02:30:00) UA Bili [Negative] Negative *NA* (08/09/2012 02:30:00) UA Leuk Est [Negative] Negative (08/09/2012 02:30:00) UA Nitrite [Negative] Negative (08/09/2012 02:30:00) UA WBC [0-5 /HPF] 8 /HPF *HI* (08/09/2012 02:30:00) UA RBC [0-2 /HPF] 23 /HPF *HI* (08/09/2012 02:30:00) UA Bacteria [None Seen /HPF] Few /HPF *NA* (08/09/2012 02:30:00) UA Sq Epi [Few /LPF] Occasional /LPF *NA* (08/09/2012 02:30:00) BLOOD BANK RESULTS Most recent to oldest [Reference Range]: 1 2 3 ABO/Rh O POS *Unknown* (08/13/2012 18:59:00) O POS *Unknown* (08/09/2012 04:05:00) Antibody Scrn Negative (08/13/2012 18:59:00) Negative (08/09/2012 04:05:00) RBC product Product available 1 (08/13/2012 17:46:00) 1Result Comment: 08/13/2012 20:21 [id number] Called to Deja Ellis at 08/13/2012 20:21 by AN CHEMISTRY Most recent to oldest [Reference Range]: 1 2 3 Sodium Lvl [135-145 mEq/L] 143 mEq/L (08/09/2012 02:30:00) Potassium Lvl [3.5-5.1 mEq/L] 3.8 mEq/L (08/09/2012 02:30:00) Chloride Lvl [95-109 mEq/L] 109 mEq/L (08/09/2012 02:30:00) CO2 [24-32 mEq/L] 22 mEq/L *LOW* (08/09/2012 02:30:00) AGAP [10.0-20.0 mEq/L] 15.8 mEq/L (08/09/2012 02:30:00) Creatinine Lvl [0.5-1.4 mg/dL] 1.2 mg/dL (08/09/2012 02:30:00) eGFR 52 mL/min/1.73m2 2 *NA* (08/09/2012 02:30:00) BUN [7-22 mg/dL] 21 mg/dL (08/09/2012 02:30:00) B/C Ratio [6-25] 18 (08/09/2012 02:30:00) Glucose Lvl [70-99 mg/dL] 140 mg/dL 3 *HI* (08/09/2012 02:30:00) Total Protein [6.4-8.4 g/dL] 7.2 g/dL (08/09/2012 02:30:00) Albumin Lvl [3.5-5.0 g/dL] 3.7 g/dL (08/09/2012 02:30:00) Globulin [2.0-4.0 g/dL] 3.5 g/dL (08/09/2012 02:30:00) A/G Ratio [0.7-1.6] 1.1 (08/09/2012 02:30:00) Calcium Lvl [8.5-10.5 mg/dL] 8.7 mg/dL (08/09/2012 02:30:00) ALT [0-65 unit/L] 36 unit/L (08/09/2012 02:30:00) AST [0-37 unit/L] 22 unit/L (08/09/2012 02:30:00) Alk Phos [39-136 unit/L] 164 unit/L *HI* (08/09/2012 02:30:00) Bili Total [0.2-1.3 mg/dL] 0.1 mg/dL *LOW* (08/09/2012 02:30:00) 2Result Comment: The eGFR is calculated using the CKD-EPI formula. In most young, healthy individuals the eGFR will be >90 mL/min/1.73m2. The eGFR declines with age. An eGFR of 60-89 may be normal in some populations, particularly the elderly, for whom the CKD-EPI formula has not been extensively validated. Use of the eGFR is not recommended in the following populations: Individuals with unstable creatinine concentrations, including patients and those with serious co-morbid conditions. Patients with extremes in muscle mass or diet. The data above are obtained from the National Kid[employer] Disease Education Program ( NKDEP) which additionally recommends that when the eGFR is used in patients with extremes of body mass index for purposes of drug dosing, the eGFR should be mul tiplied by the estimated BMI. 3Interpretive Data: Adult reference range values reflect the clinical guidelines of the [place] [employer]. HEMATOLOGY Most recent to oldest [Reference Range]: 1 2 3 WBC [3.7-10.4 K/CMM] 5.8 K/CMM (08/14/2012 03:00:00) 11.3 K/CMM *HI* (08/09/2012 02:30:00) RBC [4.20-5.40 M/CMM] 3.15 M/CMM *LOW* (08/14/2012 03:00:00) 4.19 M/CMM *LOW* (08/09/2012 02:30:00) Hgb [12.0-16.0 g/dL] 9.2 g/dL *LOW* (08/14/2012 03:00:00) 8.4 g/dL *LOW* (08/13/2012 05:35:00) 9.4 g/dL *LOW* (08/12/2012 05:54:32) Hct [36.0-48.0 %] 28.3 % *LOW* (08/14/2012 03:00:00) 25.5 % *LOW* (08/13/2012 05:35:00) 28.2 % *LOW* (08/12/2012 05:54:32) MCV [81.0-99.0 fL] 89.9 fL (08/14/2012 03:00:00) 90.7 fL (08/09/2012 02:30:00) MCH [27.0-31.0 pg] 29.3 pg (08/14/2012 03:00:00) 29.4 pg (08/09/2012 02:30:00) MCHC [32.0-36.0 g/dL] 32.6 g/dL (08/14/2012 03:00:00) 32.4 g/dL (08/09/2012 02:30:00) RDW [11.5-14.5 %] 13.6 % (08/14/2012 03:00:00) 13.9 % (08/09/2012 02:30:00) Platelet [133-450 K/CMM] 188 K/CMM (08/14/2012 03:00:00) 223 K/CMM (08/09/2012 02:30:00) MPV [7.4-10.4 fL] 7.8 fL (08/14/2012 03:00:00) 8.5 fL (08/09/2012 02:30:00) Segs [45.0-75.0 %] 74.0 % (08/14/2012 03:00:00) 82.7 % *HI* (08/09/2012 02:30:00) Lymphocytes [20.0-40.0 %] 17.6 % *LOW* (08/14/2012 03:00:00) 12.4 % *LOW* (08/09/2012 02:30:00) Monocytes [2.0-12.0 %] 5.8 % (08/14/2012 03:00:00) 4.2 % (08/09/2012 02:30:00) Eosinophils [0.0-4.0 %] 2.5 % (08/14/2012 03:00:00) 0.5 % (08/09/2012 02:30:00) Basophils [0.0-1.0 %] 0.1 % (08/14/2012 03:00:00) 0.2 % (08/09/2012 02:30:00) Segs-Bands # [1.5-8.1 K/CMM] 4.3 K/CMM (08/14/2012 03:00:00) 9.4 K/CMM *HI* (08/09/2012 02:30:00) Lymphocytes # [1.0-5.5 K/CMM] 1.0 K/CMM (08/14/2012 03:00:00) 1.4 K/CMM (08/09/2012 02:30:00) Monocytes # [0.0-0.8 K/CMM] 0.3 K/CMM (08/14/2012 03:00:00) 0.5 K/CMM (08/09/2012 02:30:00) Eosinophils # [0.0-0.5 K/CMM] 0.1 K/CMM (08/14/2012 03:00:00) 0.1 K/CMM (08/09/2012 02:30:00) Basophils # [0.0-0.2 K/CMM] 0.0 K/CMM (08/14/2012 03:00:00) 0.0 K/CMM (08/09/2012 02:30:00) RBC Morph Normal (08/14/2012 03:00:00) Normal (08/09/2012 02:30:00) Plt Morph Normal (08/14/2012 03:00:00) Normal (08/09/2012 02:30:00) PT [12.0-14.7 seconds] 12.2 seconds (08/09/2012 02:30:00) INR [0.85-1.17] 0.88 4 (08/09/2012 02:30:00) PTT [22.9-35.8 seconds] 26.4 seconds 5 (08/09/2012 02:30:00) 4Interpretive Data: RECOMMENDED RANGES FOR PROTIME INR: 2.0-3.0 for most medical and surgical thromboembolic states. 2.5-3.5 for artificial heart valves and recurrent embolism. INR SHOULD BE USED ONLY FOR PATIENTS ON STABLE ANTICOAGULANT THERAPY. 5Interpretive Data: Heparin Therapeutic Range: 57 - 92 Seconds Microbiology Reports PROCEDURE:Culture: Urine STATUS: Auth (Verified) BODY SITE: COLLECTED DATE/TIME: 08/09/2012 02:30:00 SOURCE: Urine, Catheterized FREE TEXT SOURCE: FINAL REPORTS Final Report 1000-10,000/cfu/ml Skin Mary Carmen PRELIMINARY REPORTS Preliminary Report No Growth; Holding Procedures Procedures Date Related Diagnosis Gastrectomy
--- OUTSIDE RECORDS SUMMARY | 2018-10-11 16:23 | XMS REPORT | Continuity of Care Document ---
Author Author [employer] Address Unknown Phone Unavailable Care Team Providers Care Musculoskeletal Physiotherapist Name Role Phone [employer] Unavailable Unavailable Problems Problem Status Onset Date Classification Date Reported Comments Source DX: Z96.652=PRESENCE OF LEFT ARTIFICIAL Active 08/17/2018 [facility] Other mechanical complication of infusion catheter, initial encounter 02/05/2018 08/16/2018 [facility] PORT PLACEMENT Active 01/19/2018 [facility] PORT CHECK Active 01/14/2018 [facility] PORT MALFUNCTION Active 07/30/2017 [facility] M89.8X5 Active 04/09/2017 [facility] Bloodstream infection due to central venous catheter, initial encounter 04/02/2017 06/01/2017 [facility] Vitamin deficiency, unspecified 03/18/2017 06/19/2017 [facility] UNK Active 03/09/2017 [facility] SEPSIS, UNKNOW ORIGIN Active 02/19/2017 [facility] FALL Active 09/18/2014 [facility] ACUTE GREATER TROCHANTER FRACTURE Active 09/18/2014 [facility] 996.67/733.42/03875 Active 08/07/2014 [facility] VENOUS ACCESS Active 07/17/2014 [facility] 996.67 Active 06/05/2014 [facility] INFECTION Active 05/26/2014 [facility] 715.16/05998 Active 02/20/2014 [facility] Abdominal pain1 Active 01/24/2014 Problem 08/21/2018 Data migrated from [employer] on 07/08/14. [facility] ABDOMINAL PAIN Active 01/24/2014 Condition 01/24/2014 [facility] LET FEMORAL NECK FX, FALL FROM STANDING Active 04/20/2013 [facility] ICD 717.7 715.16 / CPT 64158 Active 01/11/2013 [facility] RIGHT FEMORAL NECK FX Active 08/08/2012 [facility] Cataracts Active Problem 08/21/2018 [facility] [place] Chondromalacia of patella1 Active Problem 06/12/2014 1bilat [facility], [facility] [place] Constipation Active Problem 08/21/2018 [facility] Depression Active Problem 08/21/2018 [facility] Fibromyalgia Active Problem 08/21/2018 [facility] Nausea and vomiting2 Resolved Problem 06/12/2014 2chronic per pt report [facility] Osteoporosis Active Problem 08/21/2018 [facility] Pernicious anemia Active Problem 08/21/2018 [facility] Renal impairment3 Resolved Problem 06/12/2014 3per pt report [facility] Scleroderma Active Problem 08/21/2018 [facility] Cataracts Resolved Problem 08/16/2012 [facility] Chondromalacia of patella1 Resolved Problem 08/16/2012 1bilat [facility] Constipation Resolved Problem 08/16/2012 [facility] Depression Resolved Problem 08/16/2012 [facility] Fibromyalgia Resolved Problem 08/16/2012 [facility] Nausea and vomiting2 Resolved Problem 08/16/2012 2chronic per pt report [facility] Osteoporosis Resolved Problem 08/16/2012 [facility] Pernicious anemia Resolved Problem 08/16/2012 [facility] Renal impairment3 Resolved Problem 08/16/2012 3per pt report [facility] Scleroderma Resolved Problem 08/16/2012 [facility] Abnormal coagulation time Active Problem 08/21/2018 [facility] Antiphospholipid syndrome Active Problem 08/21/2018 [facility] Barretts esophagus Active Problem 08/21/2018 [facility] Chondromalacia of patella2 Active Problem 08/21/2018 [facility] Chronic nausea Active Problem 08/21/2018 [facility] Depression Active Problem 02/26/2017 [facility] Dysphagia Active Problem 08/21/2018 [facility] Hypertension Active Problem 08/21/2018 [facility] Lupus (Confirmed) Active Problem 08/14/2017 [facility] Malnutrition Active Problem 08/21/2018 [facility] Nausea and vomiting3 Active Problem 08/21/2018 chronic per pt report [facility] Renal impairment4 Active Problem 08/21/2018 per pt report [facility] Abdominal pain Resolved Problem 08/21/2018 [facility] Anti-phospholipid syndrome Resolved Problem 08/21/2018 [facility] Complete gastrectomy Resolved Problem 08/21/2018 [facility] Diffuse disease of connective tissue Resolved Problem 08/21/2018 [facility] Obstruction4 Resolved Problem 09/25/2014 abdominal obstruction. [facility] Renal impairment5 Active Problem 09/25/2014 per pt report [facility] Antiphospholipid syndrome 06/19/2017 [facility] Gastro-esophageal reflux disease without esophagitis 06/19/2017 [facility] Essential hypertension 06/19/2017 [facility] Other Gram-negative sepsis 06/01/2017 [facility] Systemic sclerosis, unspecified 06/01/2017 [facility] Moderate protein-calorie malnutrition 06/01/2017 [facility] Postsurgical malabsorption, not elsewhere classified 06/01/2017 [facility] Dysphagia, unspecified 08/16/2018 [facility] Surgical operation with implant of artificial internal device as the cause of abnormal reaction of the patient, or of later complication, without mention of misadventure at the time of the procedure 06/01/2017 [facility] Major depressive disorder, single episode, unspecified 06/01/2017 [facility] Anxiety disorder, unspecified 06/01/2017 [facility] Acquired absence of stomach [part of] 06/01/2017 [facility] Fibromyalgia 06/01/2017 [facility] Age-related osteoporosis without current pathological fracture 06/01/2017 [facility] Acquired absence of kidney 06/01/2017 [facility] Anemia in other chronic diseases classified elsewhere 06/01/2017 [facility] Body mass index 25.0-25.9, adult 06/01/2017 [facility] Presence of unspecified artificial shoulder joint 06/01/2017 [facility] Hewitt's esophagus without dysplasia 06/01/2017 [facility] Personal history of anaphylaxis 08/09/2018 [facility] Radiographic dye allergy status 08/09/2018 [facility] APS Active Diagnosis 08/26/2018 Talita Najam Osteoporosis Active Problem 08/26/2018 Talita Najam Migraine aura without headache Active Problem 08/26/2018 Talita Najam Hypertension Active Problem 08/26/2018 Talita Najam Unspecified diffuse connective tissue disease Active Problem 08/26/2018 Talita Najam Undifferentiated connective tissue disease Active Problem 08/26/2018 Talita Najam Antiphospholipid Syndrome - APS Active Problem 08/26/2018 Talita Najam Thoracic compression fracture Active Diagnosis 08/26/2018 Talita Urbanom High risk medication use Active Diagnosis 08/26/2018 Talita Najam Migraine without aura and without status migrainosus, not intractable Active Diagnosis 08/26/2018 Talita Najam Pain in left finger Active Diagnosis 08/26/2018 Talita Najam Pain, joint, multiple sites Active Diagnosis 08/26/2018 Talita Najam Pain of finger of right hand Active Diagnosis 08/26/2018 Talita Najam Pain in right wrist Active Diagnosis 10/08/2017 Talita Najam Stiffness of right wrist joint Active Diagnosis 10/08/2017 Talita Najam Swelling of joint, wrist, left Active Diagnosis 10/08/2017 Talita Najam Pain in left wrist Active Diagnosis 10/08/2017 Talita Najam Stiffness of left wrist joint Active Diagnosis 10/08/2017 Talita Najam Chronic fever Active Diagnosis 08/26/2018 Talita Najam Effusion of hand joint Active Diagnosis 11/01/2013 Talita Najam Swelling of limb Active Diagnosis 11/01/2013 Talita Najam Pain in joint, hand Active Diagnosis 11/01/2013 Talita Najam Stiffness of joint, not elsewhere classified, hand Active Diagnosis 11/01/2013 Talita Najam Elevated GRACE Active Diagnosis 11/01/2013 Talita Najam Pain in joint, multiple sites Active Diagnosis 11/01/2013 Talita Najam Abnormal coagulation profile Active Diagnosis 08/23/2014 Talita Najam therapeutic drug monitoring Active Diagnosis 08/23/2014 Talita Najam Counseling NOS Active Diagnosis 08/23/2014 Talita Najam FX FEMORAL CONDYLE-CLOSE Active [facility] FX NECK OF FEMUR NOS-CL Active [facility] LOC PRIM OSTEOART-L/LEG Active [facility] INFC D/T ORTH DEVICE NEC Active [facility] TROCHANTERIC FX NOS-CLOS Active [facility] SEPSIS, UNSPECIFIED ORGANISM Active [facility] UNSPECIFIED PROTEIN-CALORIE MALNUTRITION Active [facility] OTHER SPECIFIED DISORDERS OF BONE, THIGH Active [facility] MECH COMPL OF INFUSION CATHETER, INITIAL Active [facility] DYSPHAGIA FOLLOWING OTHER CEREBROVASCULA Active [facility] PRESENCE OF LEFT ARTIFICIAL KNEE JOINT Active [facility] PAIN IN LEFT KNEE Active [facility] Medications Medication Details Route Status Patient Instructions Ordering Provider Order Date Source Plaquenil 1.5 tabs Orally Active 200 MG Orally Once a day Naja 08/30/2018 Talita Najam Plaquenil 1.5 tabs Orally Active 200 MG Orally Once a day Naja 03/13/2018 Talita Naracquel Plaquenil 1.5 tabs Orally Active 200 MG Orally Once a day [facility] 03/06/2018 Talitadante Raymond losartan 25 mg oral tablet 0 Refill(s) Active 01/26/2018 [facility] Plaquenil 1.5 tabs Orally Active 200 MG Orally Once a day Naja 08/30/2017 Talitadante Urbano Carbamazepine (Tegretol) 200 Mg Tablet Twice A Day Active [facility] 05/17/2017 [facility] Fluconazole (Diflucan) 100 Mg Tablet, Active 05/17/2017 [facility] Topiramate (Topamax) 50 Mg Tablet, 150 Mg Oral Qhs Active 05/17/2017 [facility] Plaquenil 1.5 tabs Orally Active 200 MG Orally Once a day [facility] 04/27/2017 Talitadante Urbano Oxycodone Hydrochloride 5 MG Oral Tablet 10 mg, Route: PO, Drug form: TAB, ONCE, Dosing Weight 66.903, kg, PRN Pain Score 7-10, Start date: 03/13/17 9:54:00 SLIP TENDER Inactive 03/13/2017 [facility] Fentanyl 25 microgram, Route: IVP, Q5Min, Dosing Weight 66.903, kg, PRN Pain Score 4-6, Priority: Routine, Start date: 03/13/17 9:03:00 SLIP TENDER, Duration: 4 doses or times, Stop date: Limited # of times No Longer Active 03/13/2017 [facility] Oxycodone 10 mg, Route: PO, Drug form: TAB, Q4H, Dosing Weight 66.903, kg, PRN Pain Score 7-10, Start date: 03/13/17 9:03:00 SLIP TENDER, Duration: 30 day, Stop date: 04/12/17 9:02:00 SLIP TENDER No Longer Active 03/13/2017 [facility] Hydromorphone 0.5 mg, Route: IVP, Q5Min, Dosing Weight 66.903, kg, PRN Pain Score 7-10, Start date: 03/13/17 9:03:00 SLIP TENDER, Duration: 4 doses or times, Stop date: Limited # of times No Longer Active 03/13/2017 [facility] Flumazenil 0.2 mg, Route: IVP, PRN, Dosing Weight 66.903, kg, PRN Benzodiazepine Reversal, Initial dose, Start date: 03/13/17 9:03:00 SLIP TENDER, Duration: 30 day, Stop date: 04/12/17 9:02:00 SLIP TENDER No Longer Active 03/13/2017 [facility] Albuterol 0.83 MG/ML Inhalant Solution 2.49 mg, Route: NEB, Q20Min, Dosing Weight 66.903, kg, PRN Wheezing, Priority: Routine, Start date: 03/13/17 9:03:00 SLIP TENDER, Duration: 30 day, Stop date: 04/12/17 9:02:00 SLIP TENDER No Longer Active 03/13/2017 [facility] Naloxone 0.4 mg, Route: IVP, Q2MIN, Dosing Weight 66.903, kg, PRN Narcotic Reversal, Start date: 03/13/17 9:03:00 SLIP TENDER, Duration: 8 doses or times, Stop date: Limited # of times No Longer Active 03/13/2017 [facility] Meperidine 12.5 mg, Route: IVP, Q30Min, Dosing Weight 66.903, kg, PRN Other -See Comment, For shivering, Start date: 03/13/17 9:03:00 SLIP TENDER, Duration: 2 doses or times, Stop date: Limited # of times No Longer Active 03/13/2017 [facility] Diphenhydramine 12.5 mg, Route: IVP, Drug form: INJ, Q6H, Dosing Weight 66.903, kg, PRN Itching, Start date: 03/13/17 9:03:00 SLIP TENDER, Duration: 30 day, Stop date: 04/12/17 9:02:00 SLIP TENDER No Longer Active 03/13/2017 [facility] Promethazine 6.25 mg, Route: IVPB, ONCE, Dosing Weight 66.903, kg, PRN Nausea & Vomiting, Start date: 03/13/17 9:03:00 SLIP TENDER No Longer Active 03/13/2017 [facility] Ondansetron 4 mg, Route: IVP, ONCE, Dosing Weight 66.903, kg, PRN Nausea & Vomiting, Start date: 03/13/17 9:03:00 SLIP TENDER No Longer Active 03/13/2017 [facility] Labetalol 10 mg, Route: IVP, Q5Min, Dosing Weight 66.903, kg, PRN Elevated BP, Start date: 03/13/17 9:03:00 SLIP TENDER, Duration: 5 doses or times, Stop date: Limited # of times No Longer Active 03/13/2017 [facility] Hydralazine 10 mg, Route: IVP, Q20Min, Dosing Weight 66.903, kg, PRN Elevated BP, Start date: 03/13/17 9:03:00 SLIP TENDER, Duration: 2 doses or times, Stop date: Limited # of times No Longer Active 03/13/2017 [facility] Ketorolac 30 mg, Route: IVP, ONCE, Dosing Weight 66.903, kg, Start date: 03/13/17 9:03:00 SLIP TENDER, Stop date: 03/13/17 9:03:00 SLIP TENDER No Longer Active 03/13/2017 [facility] Acetaminophen 1,000 mg, Route: PO, Drug form: TAB, ONCE, Dosing Weight 66.903, kg, PRN Pain Score 1-3, Start date: 03/13/17 9:03:00 SLIP TENDER No Longer Active 03/13/2017 [facility] glycopyrrolate (ANES) Route: IV, Drug form: INJ, ONCE, Stop date: 03/13/17 9:01:00 SLIP TENDER Inactive 03/13/2017 [facility] neostigmine (ANES) Route: IV, Drug form: INJ, ONCE, Stop date: 03/13/17 9:01:00 SLIP TENDER Inactive 03/13/2017 [facility] phenylephrine (ANES) Route: IV, Drug form: INJ, ONCE, Stop date: 03/13/17 9:01:00 SLIP TENDER Inactive 03/13/2017 [facility] fentaNYL (ANES) Route: IV, Drug form: INJ, ONCE, Stop date: 03/13/17 8:52:00 SLIP TENDER Inactive 03/13/2017 [facility] propofol (ANES) Route: IV, Drug form: INJ, ONCE, Stop date: 03/13/17 8:52:00 SLIP TENDER Inactive 03/13/2017 [facility] rocuronium (ANES) Route: IV, Drug form: INJ, ONCE, Stop date: 03/13/17 8:52:00 SLIP TENDER Inactive 03/13/2017 [facility] ondansetron (ANES) Route: IV, Drug form: INJ, ONCE, Stop date: 03/13/17 8:52:00 SLIP TENDER Inactive 03/13/2017 [facility] lidocaine (ANES) Route: IV, Drug form: INJ, ONCE, Stop date: 03/13/17 8:47:00 SLIP TENDER Inactive 03/13/2017 [facility] midazolam (ANES) Route: IV, Drug form: SOLN, ONCE, Stop date: 03/13/17 8:42:00 SLIP TENDER Inactive 03/13/2017 [facility] clindamycin (ANES) 300 mg Route: IV, Drug form: INJ, Start date: 03/13/17 8:11:00 SLIP TENDER, Stop date: 03/13/17 9:11:00 SLIP TENDER Inactive 03/13/2017 [facility] Lactated Ringers Injection IV (ANES) 1000 mL Route: IV, Total Volume: 1,000, Start date: 03/13/17 7:46:00 SLIP TENDER, Stop date: 03/13/17 8:46:00 SLIP TENDER Inactive 03/13/2017 [facility] Furosemide 40 MG Oral Tablet [Lasix] 40 mg=1 tab, PO, Daily, Pt is currently not taking medication, # 30 tab, 0 Refill(s) Active 03/11/2017 [facility] Plaquenil 150 mg, PO, BID, 0 Refill(s) Active 03/11/2017 [facility] Acetaminophen 325 MG / Hydrocodone Bitartrate 10 MG Oral Tablet [Chadwick 10/325] 1 tab, PO, Q6H, PRN for pain, # 24 tab, 0 Refill(s) Active 03/11/2017 [facility] Sucralfate 100 MG/ML Oral Suspension [Carafate] 1 gm=10 mL, PO, QID-Before Meals, 0 Refill(s) Active 03/11/2017 [facility] Vancomycin 1 gm, Route: IV, ONCE, Dosing Weight 68.2, kg, Start date: 02/23/17 14:03:00 SLIP TENDER, Stop date: 02/23/17 14:03:00 SLIP TENDER, ABX Indication: Other (specify in Comments)Notes: TIME CRITICAL MEDICATION (Same As: Vancocin) Infusion rate 2001 mg: infuse over 2.5 hours For adult patients only: Round to nearest 250 mg per Medical Staff approval MEDICATION WASTE Product Size: 1000 mg Product Wasted: ___ mg Inactive 02/23/2017 [facility] vancomycin 1 g intravenous injection 1 gm, IV, Q12H, # 14 vial, 0 Refill(s), given to patient No Longer Active 02/23/2017 [facility] Vancomycin 1,000 mg, Route: IVPB, Drug form: INJ, ONCE, Dosing Weight 68.2, kg, Start date: 02/23/17 11:19:00 SLIP TENDER, Stop date: 02/23/17 11:19:00 SLIP TENDER, ABX Indication: Other (specify in Comments) Inactive 02/23/2017 [facility] Vanco level due 02/22/17-07:30am Vanco level due 02/22/17- 07:30am, reminder, Drug form: MISC, Route: MISC, ONCE, 02/22/17 7:30:00 SLIP TENDER, Stop date: 02/22/17 7:30:00 SLIP TENDER Inactive 02/22/2017 [facility] ondansetron (ANES) Route: IV, Drug form: INJ, ONCE, Stop date: 02/21/17 11:38:00 SLIP TENDER Inactive 02/21/2017 [facility] phenylephrine (ANES) Route: IV, Drug form: INJ, ONCE, Stop date: 02/21/17 11:27:00 SLIP TENDER Inactive 02/21/2017 [facility] lidocaine (ANES) Route: IV, Drug form: INJ, ONCE, Stop date: 02/21/17 11:18:00 SLIP TENDER Inactive 02/21/2017 [facility] propofol (ANES) Route: IV, Drug form: INJ, ONCE, Stop date: 02/21/17 11:18:00 SLIP TENDER Inactive 02/21/2017 [facility] famotidine (ANES) Route: IV, Drug form: INJ, ONCE, Stop date: 02/21/17 11:17:00 SLIP TENDER Inactive 02/21/2017 [facility] fentaNYL (ANES) Route: IV, Drug form: INJ, ONCE, Stop date: 02/21/17 11:17:00 SLIP TENDER Inactive 02/21/2017 [facility] midazolam (ANES) Route: IV, Drug form: SOLN, ONCE, Stop date: 02/21/17 11:17:00 SLIP TENDER Inactive 02/21/2017 [facility] Lactated Ringers Injection IV (ANES) 1000 mL Route: IV, Total Volume: 1,000, Start date: 02/21/17 10:19:00 SLIP TENDER, Stop date: 02/21/17 11:19:00 SLIP TENDER Inactive 02/21/2017 [facility] Aspirin 81 mg, 1 tab, Route: PO, Drug form: ECTAB, Daily, Dosing Weight 68.2, kg, Start date: 02/21/17 9:00:00 SLIP TENDER, Duration: 30 day, Stop date: 03/22/17 9:00:00 CSTNotes: Do not crush or chew. (Same As: Ecotrin) No Longer Active 02/21/2017 [facility] vancomycin + Sodium Chloride 0.9% IV 250 mL 750 mg, Route: IVPB, [id number], Start date: 02/21/17 9:00:00 SLIP TENDER, Duration: 30 day, Stop date: 03/22/17 21:00:00 SLIP TENDER, ABX Indication: BacteremiaNotes: TIME CRITICAL MEDICATION (Same As: Vancocin) Infusion rate 2001 mg: infuse over 2.5 hours For adult patients only: Round to nearest 250 mg per Medical Staff approval MEDICATION WASTE Product Size: 1000 mg Product Wasted: ___ mg No Longer Active 02/21/2017 [facility] Ativan 1 mg, 1 tab, Route: PO, Drug form: TAB, Bedtime, Dosing Weight 68.2, kg, PRN Anxiety, Start date: 02/20/17 22:04:00 SLIP TENDER, Duration: 30 day, Stop date: 03/22/17 22:03:00 CSTNotes: (Same as: Ativan) No Longer Active 02/21/2017 [facility] Diovan 160 mg, 1 tab, Route: PO, Drug form: TAB, Bedtime, Dosing Weight 68.2, kg, Start date: 02/20/17 21:00:00 SLIP TENDER, Duration: 30 day, Stop date: 03/21/17 21:00:00 CSTNotes: Same as Diovan No Longer Active 02/21/2017 [facility] Topamax 200 mg, 2 tab, Route: PO, Drug form: TAB, Bedtime, Dosing Weight 68.2, kg, Start date: 02/20/17 21:00:00 SLIP TENDER, Duration: 30 day, Stop date: 03/21/17 21:00:00 CSTNotes: (Same As: Topamax) "Do Not Crush" No Longer Active 02/21/2017 [facility] Lovastatin 20 mg, Route: PO, Drug form: TAB, Bedtime, Dosing Weight 68.2, kg, Start date: 02/20/17 21:00:00 SLIP TENDER, Duration: 30 day, Stop date: 03/21/17 21:00:00 SLIP TENDER Inactive 02/21/2017 [facility] Lipitor 10 mg, 1 tab, Route: PO, Drug form: TAB, Bedtime, Start date: 02/20/17 21:00:00 SLIP TENDER, Duration: 30 day, Stop date: 03/21/17 21:00:00 CSTNotes: (Same As: Lipitor) No Longer Active 02/21/2017 [facility] Cymbalta 150 mg, Route: PO, Drug form: DRC, Bedtime, Dosing Weight 68.2, kg, Start date: 02/20/17 21:00:00 SLIP TENDER, Duration: 30 day, Stop date: 03/21/17 21:00:00 SLIP TENDER Inactive 02/21/2017 [facility] Norvasc 10 mg, 2 tab, Route: PO, Drug form: TAB, Bedtime, Dosing Weight 68.2, kg, Start date: 02/20/17 21:00:00 SLIP TENDER, Duration: 30 day, Stop date: 03/21/17 21:00:00 CSTNotes: (Same as: Norvasc) No Longer Active 02/21/2017 [facility] Vancomycin 1 gm, Route: IVPB, Q12H, Dosing Weight 68.2, kg, Start date: 02/20/17 21:00:00 SLIP TENDER, Duration: 30 day, Stop date: 03/22/17 9:00:00 SLIP TENDER, ABX Indication: Catheter-Related InfectionNotes: TIME CRITICAL MEDI CATION (Same As: Vancocin) Infusion rate 2001 mg: infuse over 2.5 hours For adult patients only: Round to nearest 250 mg per Medical Staff approval MEDICATION WASTE Product Size: 1000 mg Product Wasted: ___ mg Inactive 02/21/2017 [facility] Vancomycin 1 ea, Route: MISC, ONCALL, Dosing Weight 68.2, kg, Start date: 02/20/17 20:00:00 SLIP TENDER, Duration: 10 day, Stop date: 03/02/17 19:59:00 SLIP TENDER, Pharmacy to dose, ABX Indication: Bacteremia Inactive 02/21/2017 [facility] vancomycin + Sodium Chloride 0.9% IV 500 mL 1,750 mg, Route: IVPB, ONCE, Start date: 02/20/17 19:43:00 SLIP TENDER, Stop date: 02/20/17 19:43:00 SLIP TENDER, ABX Indication: BacteremiaNotes: TIME CRITICAL MEDICATION (Same As: Vancocin) Infusion rate 2001 mg: infuse over 2.5 hours For adult patients only: Round to nearest 250 mg per Medical Staff approval MEDICATION WASTE Product Size: 1000 mg Product Wasted: ___ mg Inactive 02/21/2017 [facility] Acetaminophen 325 MG / Hydrocodone Bitartrate 5 MG Oral Tablet [Chadwick 5/325] 1 tab, Route: PO, Drug Form: TAB, Dosing Weight 68.2, kg, Q6H, PRN Pain Score 4-6, Start date: 02/20/17 11:35:00 SLIP TENDER, Duration: 30 day, Stop date: 03/22/17 11:34:00 CSTNotes: (Same as: Chadwick 325/5) Do not exceed 4gm/day of acetaminophen. No Longer Active 02/20/2017 [facility] 200 ACTUAT Albuterol 0.09 MG/ACTUAT Metered Dose Inhaler [Proventil] 180 microgram, Route: INHALATION, Drug Form: AERO/A, Dosing Weight 68.2, kg, QID, PRN Wheezing, Start date: 02/20/17 11:27:00 SLIP TENDER, Duration: 30 day, Stop date: 03/22/17 11:26:00 CSTNotes: Albuterol 90 microgram/inh 8gm HFA WASTE: Aerosol - Return to Pharmacy Same as: Ventolin, Proventil No Longer Active 02/20/2017 [facility] Sodium Chloride 0.9% IV 1,000 mL 1,000 mL, Rate: 200 ml/hr, Infuse over: 5 hr, Route: IV, Dosing Weight 68.2 kg, Total Volume: 1,000, Start date: 02/20/17 6:24:00 SLIP TENDER, Duration: 1 day, Stop date: 02/21/17 6:23:00 SLIP TENDER, 1.77, m2 No Longer Active 02/20/2017 [facility] Enoxaparin 40 mg, 0.4 mL, Route: SUB-Q, Drug form: INJ, [id number], Dosing Weight 68.2, kg, Start date: 02/20/17 2:00:00 SLIP TENDER, Duration: 30 day, Stop date: 03/21/17 2:00:00 CSTNotes: (Same as: Lovenox) No Longer Active 02/20/2017 [facility] Remeron 90 mg, 6 tab, Route: PO, Drug form: TAB, Bedtime, Dosing Weight 68.2, kg, Start date: 02/20/17 1:35:00 SLIP TENDER, Duration: 30 day, Stop date: 03/21/17 21:00:00 CSTNotes: (Same as:Remeron) No Longer Active 02/20/2017 [facility] Ativan 2 mg, 1 mL, Route: IV, Drug form: INJ, ONCE, Dosing Weight 68.2, kg, Start date: 02/20/17 1:15:00 SLIP TENDER, Stop date: 02/20/17 1:15:00 CSTNotes: (Same as: Ativan) Inactive 02/20/2017 [facility] Melatonin 3 mg, 1 tab, Route: PO, Drug form: TAB, Bedtime, Dosing Weight 69.574, kg, PRN Sleep, Start date: 02/19/17 14:54:00 SLIP TENDER, Duration: 30 day, Stop date: 03/21/17 14:53:00 CSTNotes: (Same as: Melatonin) No Longer Active 02/19/2017 [facility] Hydralazine 10 mg, 0.5 mL, Route: IVP, Drug form: INJ, Q4H, Dosing Weight 69.574, kg, PRN Hypertension, Start date: 02/19/17 14:54:00 SLIP TENDER, Duration: 30 day, Stop date: 03/21/17 14:53:00 CSTNotes: (Same as: Apres oline) Push over 5 minutes No Longer Active 02/19/2017 [facility] Docusate 100 mg, 1 cap, Route: PO, Drug form: CAP, BID, Dosing Weight 69.574, kg, PRN as needed for constipation, Start date: 02/19/17 14:52:00 SLIP TENDER, Duration: 30 day, Stop date: 03/21/17 14:51:00 CSTNotes: (Same as: Colace) (Do Not Crush) No Longer Active 02/19/2017 [facility] Acetaminophen 650 mg, 2 tab, Route: PO, Drug form: TAB, Q6H, Dosing Weight 69.574, kg, PRN Pain 1-3/Temp > 100.4 F, Start date: 02/19/17 14:52:00 SLIP TENDER, Duration: 30 day, Stop date: 03/21/17 14:51:00 CSTNotes: Do not exceed 4 gm/day. (Same as: Tylenol) No Longer Active 02/19/2017 [facility] Ondansetron 4 mg, 2 mL, Route: IVP, Drug form: INJ, Q6H, Dosing Weight 69.574, kg, PRN Nausea & Vomiting, Start date: 02/19/17 14:52:00 SLIP TENDER, Duration: 30 day, Stop date: 03/21/17 14:51:00 CSTNotes: (Same as: Zofran) MEDICATION WASTE Product Size: 4 mg Product Wasted: ___ mg No Longer Active 02/19/2017 [facility] Aspirin 81 mg, PO, Daily, 0 Refill(s) Active 02/19/2017 [facility] Plaquenil 2 tabs Orally Active 200 MG Orally Once a day Najatori 09/22/2016 [facility] heparin flush 500 unit, 5 mL, Route: IV, Drug form: SOLN, ONCALL, Start date: 09/22/14 14:00:00, Duration: 30 day, Stop date: 10/22/14 13:59:00Notes: (Same as: Heparin Lock Flush) Inactive 09/22/2014 [facility] BD Normal Saline Flush 10 mL, Route: IV, Drug Form: INJ, ONCALL, Start date: 09/22/14 14:00:00, Duration: 30 day, Stop date: 10/22/14 13:59:00Notes: (Same as: BD Posiflush) Inactive 09/22/2014 [facility] Vitamin B12 1,000 microgram, 1 mL, Route: IM, Drug form: INJ, QFri, Dosing Weight 68.182, kg, Start date: 09/22/14 9:00:00, Duration: 30 day, Stop date: 10/20/14 9:00:00Notes: (Same As: Vitamin B12) Inactive 09/22/2014 [facility] D5W 1/2NS 1,000 mL 1,000 mL, Rate: 80 ml/hr, Infuse over: 12.5 hr, Route: IV, Dosing Weight 69.574 kg, Total Volume: 1,000, Start date: 09/20/14 18:08:00, Duration: 30 day, Stop date: 10/20/14 18:07:00 No Longer Active 09/20/2014 [facility] Phenergan 6.25 mg, 0.5 tab, Route: PO, Drug form: TAB, Q6H, Dosing Weight 69.574, kg, PRN Nausea & Vomiting, Start date: 09/20/14 8:16:00, Duration: 30 day, Stop date: 10/20/14 8:15:00Notes: (Same as: Phenerga n) No Longer Active 09/20/2014 [facility] Diovan 160 mg, 1 tab, Route: PO, Drug form: TAB, Bedtime, Dosing Weight 68.182, kg, Start date: 09/19/14 21:00:00, Duration: 30 day, Stop date: 10/18/14 21:00:00Notes: Same as Diovan No Longer Active 09/20/2014 [facility] Topamax 200 mg, 2 tab, Route: PO, Drug form: TAB, Bedtime, Dosing Weight 68.182, kg, Start date: 09/19/14 21:00:00, Duration: 30 day, Stop date: 10/18/14 21:00:00Notes: (Same As: Topamax) "Do Not Crush" No Longer Active 09/20/2014 [facility] Remeron SolTab 90 mg, 6 tab, Route: PO, Drug form: TAB, Bedtime, Dosing Weight 68.182, kg, Start date: 09/19/14 21:00:00, Duration: 30 day, Stop date: 10/18/14 21:00:00Notes: (Same as:Remeron) No Longer Active 09/20/2014 [facility] Lovastatin 20 mg, Route: PO, Drug form: TAB, Bedtime, Dosing Weight 68.182, kg, Start date: 09/19/14 21:00:00, Duration: 30 day, Stop date: 10/18/14 21:00:00 Inactive 09/20/2014 [facility] Cymbalta 150 mg, 5 cap, Route: PO, Drug form: DRC, Bedtime, Dosing Weight 68.182, kg, Start date: 09/19/14 21:00:00, Duration: 30 day, Stop date: 10/18/14 21:00:00Notes: (Same as: Cymbalta) (Do Not Crush) No Longer Active 09/20/2014 [facility] Norvasc 10 mg, 2 tab, Route: PO, Drug form: TAB, Bedtime, Dosing Weight 68.182, kg, Start date: 09/19/14 21:00:00, Duration: 30 day, Stop date: 10/18/14 21:00:00Notes: (Same as: Norvasc) No Longer Active 09/20/2014 [facility] Lipitor 10 mg, 1 tab, Route: PO, Drug form: TAB, Bedtime, Start date: 09/19/14 21:00:00, Duration: 30 day, Stop date: 10/18/14 21:00:00Notes: (Same As: Lipitor) No Longer Active 09/20/2014 [facility] Bentyl 10 mg, 5 mL, Route: PO, Drug form: SYRP, Q4H, Dosing Weight 68.182, kg, PRN See Nurse's Notes, Start date: 09/19/14 8:21:00, Duration: 30 day, Stop date: 10/19/14 8:20:00, abdominal painNotes: (Same as: Bentyl) No Longer Active 09/19/2014 [facility] Zofran ODT 4 mg, 1 tab, Route: PO, Drug form: TABDIS, TID, Dosing Weight 68.182, kg, PRN as needed for nausea/vomiting, Start date: 09/19/14 7:59:00, Duration: 30 day, Stop date: 10/19/14 7:58:00Notes: (Same as: Zofran ODT) No Longer Active 09/19/2014 [facility] Ativan 4 mg, 4 tab, Route: PO, Drug form: TAB, Bedtime, Dosing Weight 68.182, kg, PRN as needed for anxiety, Start date: 09/19/14 7:58:00, Duration: 30 day, Stop date: 10/19/14 7:57:00Notes: (Same as: Ativan) No Longer Active 09/19/2014 [facility] 200 ACTUAT Albuterol 0.09 MG/ACTUAT Metered Dose Inhaler [Proventil] 2 puff, Route: INHALATION, Drug Form: AERO/A, Dosing Weight 68.182, kg, QID, PRN as needed for wheezing, Start date: 09/19/14 7:58:00, Duration: 30 day, Stop date: 10/19/14 7:57:00Notes: Albuterol 90 microgram/inh 8gm HFA Same as: Ventolin, Proventil No Longer Active 09/19/2014 [facility] Ondansetron 4 mg, 2 mL, Route: IVP, Drug form: INJ, Q4H, Dosing Weight 68.182, kg, PRN Nausea & Vomiting, Start date: 09/19/14 3:09:00, Duration: 30 day, Stop date: 10/19/14 3:08:00Notes: (Same as: Zofran) MEDICATION WASTE Product Size: 4 mg Product Wasted: ___ mg No Longer Active 09/19/2014 [facility] Enoxaparin 30 mg, 0.3 mL, Route: SUB-Q, Drug form: INJ, [id number], Dosing Weight 68.182, kg, Start date: 09/18/14 22:00:00, Duration: 30 day, Stop date: 10/18/14 10:00:00Notes: (Same as: Lovenox) No Longer Active 09/19/2014 [facility] Saline Flush 0.9% 10 ml, Route: IVP, Drug Form: INJ, Dosing Weight 68.182, kg, PRN, PRN Line Flush, Start date: 09/18/14 21:20:00, Duration: 30 day, Stop date: 10/18/14 21:19:00Notes: (Same as: BD Posiflush) No Longer Active 09/19/2014 [facility] Glucose 50 MG/ML / Sodium Chloride 0.154 MEQ/ML Injectable Solution 1,000 mL, Rate: 125 ml/hr, Infuse over: 8 hr, Route: IV, Dosing Weight 68.182 kg, Total Volume: 1,000, Start date: 09/18/14 21:20:00, Stop date: 10/18/14 21:19:00 No Longer Active 09/19/2014 [facility] Hydromorphone 0.5 mg, 0.5 mL, Route: IVP, Drug form: INJ, Q4H, Dosing Weight 68.182, kg, PRN Pain Score 7-10, Start date: 09/18/14 21:20:00, Duration: 30 day, Stop date: 10/18/14 21:19:00 No Longer Active 09/19/2014 [facility] Ondansetron 4 mg, 2 mL, Route: IVP, Drug form: INJ, Q24H, Dosing Weight 68.182, kg, PRN Nausea & Vomiting, Start date: 09/18/14 21:20:00, Duration: 30 day, Stop date: 10/18/14 21:19:00Notes: (Same as: Wendi) MEDICATION WASTE Product Size: 4 mg Product Wasted: ___ mg No Longer Active 09/19/2014 [facility] Acetaminophen 325 MG / Hydrocodone Bitartrate 10 MG Oral Tablet 2 tab, Route: PO, Drug Form: TAB, Dosing Weight 68.182, kg, Q4H, PRN Pain Score 4-6, Start date: 09/18/14 21:20:00, Duration: 30 day, Stop date: 10/18/14 21:19:00Notes: Do not exceed 4gm/day of acetaminophen. (Same as: Chadwick 325/10) No Longer Active 09/19/2014 [facility] Dilaudid 0.5 mg, 0.5 mL, Route: IVP, Drug form: INJ, ONCE, Dosing Weight 68.182, kg, Priority: STAT, Start date: 09/18/14 18:30:00, Stop date: 09/18/14 18:30:00 Inactive 09/18/2014 [facility] Vitamin B12 1,000 microgram, 1 mL, Route: IM, Drug form: INJ, QFri, Dosing Weight 59.002, kg, Start date: 09/01/14 9:00:00, Duration: 30 day, Stop date: 09/29/14 9:00:00Notes: (Same As: Vitamin B12) No Longer Active 09/01/2014 [facility] gabapentin 100 MG Oral Capsule [Neurontin] 400 mg, 4 cap, Route: PO, Drug form: CAP, Daily, Dosing Weight 59.002, kg, Start date: 08/31/14 9:00:00, Duration: 30 day, Stop date: 09/29/14 9:00:00Notes: (Same as: Neurontin) Inactive 08/31/2014 [facility] Aspirin 325 MG Enteric Coated Tablet 325 mg, PO, Q12H, # 60 tab, 0 Refill(s) Active 08/31/2014 [facility] Diovan 160 mg, 1 tab, Route: PO, Drug form: TAB, Bedtime, Dosing Weight 59.002, kg, Start date: 08/30/14 21:00:00, Duration: 30 day, Stop date: 09/28/14 21:00:00Notes: Same as Diovan No Longer Active 08/31/2014 [facility] Topamax 200 mg, 2 tab, Route: PO, Drug form: TAB, Bedtime, Dosing Weight 59.002, kg, Start date: 08/30/14 21:00:00, Duration: 30 day, Stop date: 09/28/14 21:00:00Notes: (Same As: Topamax) "Do Not Crush" No Longer Active 08/31/2014 [facility] Remeron SolTab 90 mg, 6 tab, Route: PO, Drug form: TAB, Bedtime, Dosing Weight 59.002, kg, Start date: 08/30/14 21:00:00, Duration: 30 day, Stop date: 09/28/14 21:00:00Notes: (Same as:Remeron) No Longer Active 08/31/2014 [facility] Lovastatin 20 mg, Route: PO, Drug form: TAB, Bedtime, Dosing Weight 59.002, kg, Start date: 08/30/14 21:00:00, Duration: 30 day, Stop date: 09/28/14 21:00:00 Inactive 08/31/2014 [facility] Hydroxychloroquine Sulfate 200 MG Oral Tablet [Plaquenil] 200 mg, 1 tab, Route: PO, Drug form: TAB, Bedtime, Dosing Weight 59.002, kg, Start date: 08/30/14 21:00:00, Duration: 30 day, Stop date: 09/28/14 21:00:00Notes: (Same as: Plaquenil) Hydroxychloroquine sulfate 200 zs=339 mg hydroxychloroquine base. If treating malaria, verify dose as salt vs. base per CDC guideline No Longer Active 08/31/2014 [facility] Cymbalta 150 mg, 5 cap, Route: PO, Drug form: DRC, Bedtime, Dosing Weight 59.002, kg, Start date: 08/30/14 21:00:00, Duration: 30 day, Stop date: 09/28/14 21:00:00Notes: (Same as: Cymbalta) (Do Not Crush) No Longer Active 08/31/2014 [facility] Norvasc 10 mg, 2 tab, Route: PO, Drug form: TAB, Bedtime, Dosing Weight 59.002, kg, Start date: 08/30/14 21:00:00, Duration: 30 day, Stop date: 09/28/14 21:00:00Notes: (Same as: Norvasc) No Longer Active 08/31/2014 [facility] Lipitor 10 mg, 1 tab, Route: PO, Drug form: TAB, Bedtime, Start date: 08/30/14 21:00:00, Duration: 30 day, Stop date: 09/28/14 21:00:00Notes: (Same As: Lipitor) No Longer Active 08/31/2014 [facility] Zofran ODT 4 mg, 1 tab, Route: PO, Drug form: TABDIS, TID, Dosing Weight 59.002, kg, PRN Nausea, Start date: 08/30/14 16:40:00, Duration: 30 day, Stop date: 09/29/14 16:39:00Notes: (Same as: Zofran ODT) No Longer Active 08/30/2014 [facility] Ativan 4 mg, 2 tab, Route: PO, Drug form: TAB, Bedtime, Dosing Weight 59.002, kg, PRN as needed for anxiety, Start date: 08/30/14 16:30:00, Duration: 30 day, Stop date: 09/29/14 16:29:00Notes: (Same as: Ativan) No Longer Active 08/30/2014 [facility] Bentyl 10 mg, 5 mL, Route: PO, Drug form: SYRP, Q4H, Dosing Weight 59.002, kg, PRN Spasm, Start date: 08/30/14 16:29:00, Duration: 30 day, Stop date: 09/29/14 16:28:00Notes: (Same as: Shima) No Longer Active 08/30/2014 [facility] 200 ACTUAT Albuterol 0.09 MG/ACTUAT Metered Dose Inhaler [Proventil] 2 puff, Route: INHALATION, Drug Form: AERO/A, Dosing Weight 59.002, kg, QID, PRN as needed for wheezing, Start date: 08/30/14 16:29:00, Duration: 30 day, Stop date: 09/29/14 16:28:00Notes: Albuterol 90 microgram/inh 8gm HFA Same as: Ventolin, Proventil No Longer Active 08/30/2014 [facility] Vancomycin 6.67 MG/ML Injectable Solution 1 gm, 200 mL, Route: IVPB, Drug form: INJ, Q12H, Dosing Weight 65.455, kg, Start date: 08/30/14 3:00:00, Duration: 2 doses or times, Stop date: 08/30/14 15:00:00, Pharmacy to adjust dose for renal functionSpecial Instructions: Pharmacy to adjust dose for renal functionNotes: TIME CRITICAL MEDICATION Inactive 08/30/2014 [facility] Aspirin 325 mg, 1 tab, Route: PO, Drug form: TAB, Q12H, Dosing Weight 65.455, kg, For patients with risk of bleeding, Start date: 08/29/14 20:08:00, Duration: 30 day, Stop date: 09/28/14 9:00:00Notes: Take with food. No Longer Active 08/30/2014 [facility] Acetaminophen 325 MG / Hydrocodone Bitartrate 10 MG Oral Tablet [Chadwick 10/325] 2 tab, Route: PO, Drug Form: TAB, Dosing Weight 65.455, kg, Q6H, Routine, Start date: 08/29/14 18:00:00, Duration: 4 doses or times, Stop date: 08/30/14 12:00:00Notes: Do not exceed 4gm/day of acetaminophen. (Same as: Chadwick 325/10) No Longer Active 08/29/2014 [facility] Aspirin 325 MG Enteric Coated Tablet 325 mg, Route: PO, Drug form: ECTAB, BID, Dosing Weight 65.455, kg, Priority: Routine, Start date: 08/29/14 17:00:00, Duration: 30 day, Stop date: 09/28/14 9:00:00 Inactive 08/29/2014 [facility] docusate sodium 100 mg oral capsule 100 mg, 1 cap, Route: PO, Drug form: CAP, BID, Dosing Weight 65.455, kg, Start date: 08/29/14 17:00:00, Duration: 30 day, Stop date: 09/28/14 9:00:00Notes: (Same as: Colace) (Do Not Crush) No Longer Active 08/29/2014 [facility] Naloxone 0.04 mg, 0.1 mL, Route: IVP, Drug form: INJ, Q2MIN, Dosing Weight 65.455, kg, PRN Narcotic Reversal, Start date: 08/29/14 16:21:00, Duration: 8 doses or times, Stop date: 08/30/14 0:00:00Notes: Same as Narcan Inactive 08/29/2014 [facility] Flumazenil 0.2 mg, 2 mL, Route: IVP, Drug form: INJ, PRN, Dosing Weight 65.455, kg, PRN Benzodiazepine Reversal, Initial dose, Start date: 08/29/14 16:21:00, Stop date: 08/30/14 0:00:00Notes: (Same as: Romazicon) Inactive 08/29/2014 [facility] Ondansetron 4 mg, 2 mL, Route: IVP, Drug form: INJ, ONCE, Dosing Weight 65.455, kg, PRN Nausea & Vomiting, Start date: 08/29/14 16:21:00Notes: (Same as: Zofran) MEDICATION WASTE Product Size: 4 mg Product Wasted: __0_ mg Inactive 08/29/2014 [facility] Hydralazine 10 mg, 0.5 mL, Route: IVP, Drug form: INJ, Q20Min, Dosing Weight 65.455, kg, PRN Elevated BP, Start date: 08/29/14 16:21:00, Duration: 2 doses or times, Stop date: 08/30/14 0:00:00Notes: (Same as: Apresoline) Push over 5 minutes Inactive 08/29/2014 [facility] Labetalol 10 mg, 2 mL, Route: IVP, Drug form: INJ, Q5Min, Dosing Weight 65.455, kg, PRN Elevated BP, Start date: 08/29/14 16:21:00, Duration: 5 doses or times, Stop date: 08/30/14 0:00:00Notes: (Same as: Normodyn e, Trandate) Push over 2 minutes Give bolus over 2-3 minutes. Inactive 08/29/2014 [facility] Fentanyl 25 microgram, 0.5 mL, Route: IVP, Drug form: INJ, Q5Min, Dosing Weight 65.455, kg, PRN Pain Score 4-6, Start date: 08/29/14 16:21:00, Duration: 4 doses or times, Stop date: 08/30/14 0:00:00Notes: (Same as: Sublimaze) Preservative free. Inactive 08/29/2014 [facility] Hydromorphone 0.5 mg, 0.5 mL, Route: IVP, Drug form: INJ, Q5Min, Dosing Weight 65.455, kg, PRN Pain Score 7-10, Start date: 08/29/14 16:21:00, Duration: 4 doses or times, Stop date: 08/30/14 0:00:00 Inactive 08/29/2014 [facility] Acetaminophen 325 MG / Hydrocodone Bitartrate 10 MG Oral Tablet [Chadwick 10/325] 2 tab, Route: PO, Drug Form: TAB, Dosing Weight 65.455, kg, Q6H, PRN Pain Score 7-10, start after scheduled Chadwick is done., Start date: 08/29/14 16:06:00, Duration: 30 day, Stop date: 09/28/14 16:05:00Notes: Do not exceed 4gm/day of acetaminophen. (Same as: Chadwick 325/10) No Longer Active 08/29/2014 [facility] Saline Flush 0.9% 10 ml, Route: IVP, Drug Form: INJ, Dosing Weight 65.455, kg, PRN, PRN Line Flush, Start date: 08/29/14 16:06:00, Duration: 30 day, Stop date: 09/28/14 16:05:00Notes: Same as: BD Posiflush Sterile No Longer Active 08/29/2014 [facility] D5W 1/2NS + KCL 20mEq/L 1000ml (Premix) 1,000 mL 1,000 mL, Rate: 75 ml/hr, Infuse over: 13.3 hr, Route: IV, Dosing Weight 65.455 kg, Total Volume: 1,000, Start date: 08/29/14 16:06:00, Duration: 30 day, Stop date: 09/28/14 16:05:00Notes: PREMIX IV - Do Not Alter No Longer Active 08/29/2014 [facility] Dilaudid 0.3 mg, 0.3 mL, Route: IV, Drug form: INJ, Q4H, Dosing Weight 65.455, kg, PRN Pain Score 7-10, Start date: 08/29/14 16:06:00, Duration: 30 day, Stop date: 09/28/14 16:05:00 No Longer Active 08/29/2014 [facility] Diphenhydramine 12.5 mg, 0.5 tab, Route: PO, Drug form: TAB, Q6H, Dosing Weight 65.455, kg, PRN Itching, Start date: 08/29/14 16:06:00, Duration: 30 day, Stop date: 09/28/14 16:05:00 No Longer Active 08/29/2014 [facility] Acetaminophen 325 MG / Hydrocodone Bitartrate 10 MG Oral Tablet 1 tab, Route: PO, Drug Form: TAB, Dosing Weight 65.455, kg, Q6H, PRN Pain Score 4-6, Start date: 08/29/14 16:06:00, Duration: 30 day, Stop date: 09/28/14 16:05:00Notes: Do not exceed 4gm/day of acetaminophen. (Same as: Chadwick 325/10) No Longer Active 08/29/2014 [facility] Dulcolax Laxative 5 mg, 1 tab, Route: PO, Drug form: ECTAB, Q24H, Dosing Weight 65.455, kg, PRN Constipation, Start date: 08/29/14 16:06:00, Duration: 30 day, Stop date: 09/28/14 16:05:00Notes: (Same As: Dulcolax, Correctol) (Do Not Crush) "Do Not Crush" No Longer Active 08/29/2014 [facility] Ondansetron 4 mg, 2 mL, Route: IVP, Drug form: INJ, Q6H, Dosing Weight 65.455, kg, PRN Nausea & Vomiting, Start date: 08/29/14 16:06:00, Duration: 30 day, Stop date: 09/28/14 16:05:00Notes: (Same as: Wendi) MEDICATION WASTE Product Size: 4 mg Product Wasted: __0_ mg No Longer Active 08/29/2014 [facility] Al hydroxide/Mg hydroxide/simethicone 200 mg-200 mg-20 mg/5 mL oral suspension 30 ml, Route: PO, Drug Form: SUSP, Dosing Weight 65.455, kg, Q4H, PRN Indigestion, Start date: 08/29/14 16:06:00, Duration: 30 day, Stop date: 09/28/14 16:05:00Notes: (aluminum hydroxide-magnesium hyd-simethicone [id number]/5ml 30 ml ud MACI) No Longer Active 08/29/2014 [facility] Cefazolin 2 gm, 100 mL, Route: IVPB, Drug form: INJ, ONCALL, Dosing Weight 65.455, kg, Start date: 08/29/14 15:00:00, Duration: 30 day, Stop date: 09/28/14 14:59:00 Inactive 08/29/2014 [facility] Vancomycin 1 gm, 200 mL, Route: IVPB, Drug form: INJ, ONCE, Dosing Weight 65.455, kg, Start date: 08/29/14 14:25:00, Stop date: 08/29/14 14:25:00Notes: TIME CRITICAL MEDICATION Inactive 08/29/2014 [facility] Calcium Chloride 0.0014 MEQ/ML / Potassium Chloride 0.004 MEQ/ML / Sodium Chloride 0.103 MEQ/ML / Sodium Lactate 0.028 MEQ/ML Injectable Solution 1,000 mL, Rate: 25 ml/hr, Infuse over: 40 hr, Route: IV, Dosing Weight 65.455 kg, Total Volume: 1,000, Start date: 08/29/14 12:59:00, Duration: 30 day, Stop date: 09/28/14 12:58:00 Inactive 08/29/2014 [facility] Acetaminophen 325 MG / Hydrocodone Bitartrate 10 MG Oral Tablet [Chadwick 10/325] 1 tab, PO, Q6H, PRN for pain, # 24 tab, 0 Refill(s) Active 07/24/2014 [facility] Vancomycin 1 gm, Route: IVPB, Drug form: INJ, ONCALL, Dosing Weight 67.273, kg, Start date: 06/09/14 8:00:00 Inactive 06/09/2014 [facility] Oxycodone Hydrochloride 5 MG Oral Tablet 5 mg, Route: PO, Drug form: TAB, ONCE, Dosing Weight 67.273, kg, Start date: 06/09/14 7:41:00, Stop date: 06/09/14 7:41:00 Inactive 06/09/2014 [facility] Ondansetron 4 mg, Route: IVP, ONCE, Dosing Weight 67.273, kg, PRN Nausea & Vomiting, Start date: 06/09/14 7:18:00 Inactive 06/09/2014 [facility] Flumazenil 0.2 mg, Route: IVP, PRN, Dosing Weight 67.273, kg, PRN Benzodiazepine Reversal, Initial dose, Start date: 06/09/14 7:18:00, Duration: 30 day, Stop date: 07/09/14 7:17:00 Inactive 06/09/2014 [facility] Hydromorphone 0.5 mg, Route: IVP, Q5Min, Dosing Weight 67.273, kg, PRN Pain Score 7-10, Start date: 06/09/14 7:18:00, Duration: 4 doses or times, Stop date: Limited # of times Inactive 06/09/2014 [facility] Naloxone 0.04 mg, Route: IVP, Q2MIN, Dosing Weight 67.273, kg, PRN Narcotic Reversal, Start date: 06/09/14 7:18:00, Duration: 8 doses or times, Stop date: Limited # of times Inactive 06/09/2014 [facility] Fentanyl 25 microgram, Route: IVP, Q5Min, Dosing Weight 67.273, kg, PRN Pain Score 4-6, Start date: 06/09/14 7:18:00, Duration: 4 doses or times, Stop date: Limited # of times Inactive 06/09/2014 [facility] Hydralazine 10 mg, Route: IVP, Q20Min, Dosing Weight 67.273, kg, PRN Elevated BP, Start date: 06/09/14 7:18:00, Duration: 2 doses or times, Stop date: Limited # of times Inactive 06/09/2014 [facility] Labetalol 10 mg, Route: IVP, Q5Min, Dosing Weight 67.273, kg, PRN Elevated BP, Start date: 06/09/14 7:18:00, Duration: 5 doses or times, Stop date: Limited # of times Inactive 06/09/2014 [facility] Calcium Chloride 0.0014 MEQ/ML / Potassium Chloride 0.004 MEQ/ML / Sodium Chloride 0.103 MEQ/ML / Sodium Lactate 0.028 MEQ/ML Injectable Solution 1,000 mL, Rate: 25 ml/hr, Infuse over: 40 hr, Route: IV, Dosing Weight 67.273 kg, Total Volume: 1,000, Start date: 06/09/14 7:11:00, Duration: 30 day, Stop date: 07/09/14 7:10:00 Inactive 06/09/2014 [facility] Acetaminophen 325 MG / Hydrocodone Bitartrate 5 MG Oral Tablet 1 tab, Route: PO, Dosing Weight 67.273, kg, Q4H, PRN Pain Score 4-6, Start date: 06/09/14 6:58:00, Duration: 30 day, Stop date: 07/09/14 6:57:00 No Longer Active 06/09/2014 [facility] gabapentin 100 MG Oral Capsule [Neurontin] 400 mg=4 cap, PO, Daily, # 240 cap, 0 Refill(s) Active 06/07/2014 [facility] Ondansetron 4 MG Disintegrating Tablet [Zofran] 1-2 tab, PO, TID, # 3 tab, 0 Refill(s) Active 06/07/2014 [facility] Lorazepam 2 MG Oral Tablet [Ativan] 4 mg=2 tab, PO, Bedtime, PRN Anxiety, # 20 tab, 0 Refill(s) Active 06/07/2014 [facility] Mirtazapine 45 MG Disintegrating Tablet [Remeron] 45 mg=1 tab, PO, Bedtime, # 30 tab, 0 Refill(s) Active 06/07/2014 [facility] Xarelto 10 mg, 1 tab, Route: PO, Drug form: TAB, Bedtime, Dosing Weight 81.81, kg, Start date: 03/05/14 21:00:00, Duration: 30 day, Stop date: 04/03/14 21:00:00Notes: (Same as: Xarelto) Do Not Crush Inactive 03/06/2014 [facility] Erythromycin 250 mg, Route: IVPB, Q12H, Dosing Weight 81.81, kg, Priority: NOW, Start date: 03/04/14 17:01:00, Duration: 30 day, Stop date: 04/03/14 10:00:00Notes: (Same as: erythromycin lactobionate) No Longer Active 03/04/2014 [facility] Reglan 10 mg, Route: IVP, Drug form: INJ, Q6H, Dosing Weight 81.81, kg, Start date: 03/03/14 18:00:00, Duration: 3 day, Stop date: 03/06/14 12:00:00 Inactive 03/04/2014 [facility] Erythromycin 200 mg, Route: IV, Drug form: PDR/INJ, Q12H, Dosing Weight 81.81, kg, Priority: STAT, Start date: 03/03/14 17:55:00, Duration: 3 day, Stop date: 03/06/14 9:00:00Notes: (Same as: erythromycin lactobionate) No Longer Active 03/03/2014 [facility] Sodium Chloride 0.154 MEQ/ML Injectable Solution 500 mL, Rate: 25 ml/hr, Infuse over: 20 hr, Route: IV, Dosing Weight 81.81 kg, Total Volume: 500, Start date: 03/03/14 15:42:00, Duration: 30 day, Stop date: 04/02/14 15:41:00 Inactive 03/03/2014 [facility] Hydralazine 10 mg, 0.5 mL, Route: IV, Drug form: INJ, Q6H, Dosing Weight 81.81, kg, PRN Elevated BP, Start date: 03/03/14 13:07:00, Duration: 30 day, Stop date: 04/02/14 13:06:00Notes: (Same as: Apresoline) Push over 5 minutes No Longer Active 03/03/2014 [facility] Dulcolax Laxative 10 mg, 1 supp, Route: ND, Drug form: SUPP, ONCE, Dosing Weight 81.81, kg, Start date: 03/03/14 13:07:00, Stop date: 03/03/14 13:07:00Notes: (Same As: Dulcolax, Bisco-Lax) No Longer Active 03/03/2014 [facility] Compazine 10 mg, 2 mL, Route: IM, Drug form: INJ, Q6H, Dosing Weight 81.81, kg, PRN Nausea & Vomiting, Start date: 03/03/14 13:02:00, Duration: 30 day, Stop date: 04/02/14 13:01:00Notes: (Same as: Compazine) No Longer Active 03/03/2014 [facility] NS 1000 mL 1,000 mL, Rate: 80 ml/hr, Infuse over: 12.5 hr, Route: IV, Dosing Weight 81.81 kg, Total Volume: 1,000, Start date: 03/03/14 12:58:00, Duration: 30 day, Stop date: 04/02/14 12:57:00 No Longer Active 03/03/2014 [facility] Sodium Chloride 0.154 MEQ/ML Injectable Solution 100 mL, Rate: 10 ml/hr, Infuse over: 10 hr, Route: IVPB, Dosing Weight 81.81 kg, Total Volume: 100, Infuse at 8 mg / hr for 72 hours for GI bleeding, Start date: 03/03/14 12:57:00, Duration: 72 hr, Stop date: 03/06/14 12:56:00 Inactive 03/03/2014 [facility] Vitamin B12 1,000 microgram, 1 mL, Route: IM, Drug form: INJ, QFri, Dosing Weight 81.81, kg, Start date: 03/03/14 9:00:00, Duration: 30 day, Stop date: 03/31/14 9:00:00Notes: (Same As: Vitamin B12) No Longer Active 03/03/2014 [facility] Acetaminophen 325 MG / Hydrocodone Bitartrate 10 MG Oral Tablet [Chadwick 10/325] 2 tab, PO, Q6H, Pain Score 7-10, 0 Refill(s) Active 03/02/2014 [facility] rivaroxaban 10 mg oral tablet 10 mg=1 tab, PO, Q24H, # 30 tab, 0 Refill(s) Active 03/02/2014 [facility] Protonix 40 mg, 1 tab, Route: PO, Drug form: ECTAB, Before Dinner, Dosing Weight 81.81, kg, Start date: 03/02/14 16:30:00, Duration: 30 day, Stop date: 03/31/14 16:30:00Notes: Tablet should not be chewed or crushed. (Same as: Protonix) No Longer Active 03/02/2014 [facility] Lamisil 250 mg, Route: PO, Drug form: TAB, Daily, Dosing Weight 81.81, kg, Start date: 03/02/14 9:00:00, Duration: 30 day, Stop date: 03/31/14 9:00:00 No Longer Active 03/02/2014 [facility] *RN- to bring pt's LAMISIL 250mg tab to pharmacy for label* *RN- to bring pt's LAMISIL 250mg tab to pharmacy for label*, 1, Drug form: MISC, Route: MISC, TID, 03/02/14 8:30:00, Duration: 30 day, Stop date: 03/31/14 17:00:00 No Longer Active 03/02/2014 [facility] Cymbalta 120 mg, 4 cap, Route: PO, Drug form: DRC, Bedtime, Dosing Weight 81.81, kg, Start date: 03/01/14 21:00:00, Duration: 30 day, Stop date: 03/30/14 21:00:00Notes: (Same as: Cymbalta) (Do Not Crush) No Longer Active 03/02/2014 [facility] Norvasc 10 mg, 2 tab, Route: PO, Drug form: TAB, Bedtime, Dosing Weight 81.81, kg, Start date: 03/01/14 21:00:00, Duration: 30 day, Stop date: 03/30/14 21:00:00Notes: (Same as: Norvasc) No Longer Active 03/02/2014 [facility] Lipitor 10 mg, 1 tab, Route: PO, Drug form: TAB, Bedtime, Start date: 03/01/14 21:00:00, Duration: 30 day, Stop date: 03/30/14 21:00:00Notes: (Same As: Lipitor) No Longer Active 03/02/2014 [facility] zolpidem 5 mg, Route: PO, Drug form: TAB, Bedtime, Dosing Weight 81.81, kg, Start date: 03/01/14 21:00:00, Duration: 30 day, Stop date: 03/30/14 21:00:00 Inactive 03/02/2014 [facility] Diovan 160 mg, 1 tab, Route: PO, Drug form: TAB, Bedtime, Dosing Weight 81.81, kg, Start date: 03/01/14 21:00:00, Duration: 30 day, Stop date: 03/30/14 21:00:00Notes: Same as Diovan No Longer Active 03/02/2014 [facility] Topamax 200 mg, 2 tab, Route: PO, Drug form: TAB, Bedtime, Dosing Weight 81.81, kg, Start date: 03/01/14 21:00:00, Duration: 30 day, Stop date: 03/30/14 21:00:00Notes: (Same As: Topamax) "Do Not Crush" No Longer Active 03/02/2014 [facility] Mirtazapine 90 mg, 6 tab, Route: PO, Drug form: TAB, Bedtime, Dosing Weight 81.81, kg, Start date: 03/01/14 21:00:00, Duration: 30 day, Stop date: 03/30/14 21:00:00Notes: (Same as:Remeron) No Longer Active 03/02/2014 [facility] Lovastatin 20 mg, Route: PO, Drug form: TAB, Bedtime, Dosing Weight 81.81, kg, Start date: 03/01/14 21:00:00, Duration: 30 day, Stop date: 03/30/14 21:00:00 Inactive 03/02/2014 [facility] Hydroxychloroquine Sulfate 200 MG Oral Tablet [Plaquenil] 400 mg, 2 tab, Route: PO, Drug form: TAB, Daily, Dosing Weight 81.81, kg, Start date: 03/01/14 21:00:00, Duration: 30 day, Stop date: 03/30/14 21:00:00Notes: (Same as: Plaquenil) Hydroxychloroquine sulfate 200 cr=202 mg hydroxychloroquine base. If treating malaria, verify dose as salt vs. base per CDC guideline No Longer Active 03/02/2014 [facility] gabapentin 100 MG Oral Capsule [Neurontin] 100 mg, 1 cap, Route: PO, Drug form: CAP, QID, Dosing Weight 81.81, kg, Start date: 03/01/14 17:00:00, Duration: 30 day, Stop date: 03/31/14 13:00:00Notes: (Same as: Neurontin) No Longer Active 03/01/2014 [facility] Sucralfate 100 MG/ML Oral Suspension [Carafate] 2 gm, 20 mL, Route: PO, Drug form: SUSP, BID, Dosing Weight 81.81, kg, Start date: 03/01/14 17:00:00, Duration: 30 day, Stop date: 03/31/14 9:00:00Notes: Enteral feeds may interfere with the absorption of this medication. Shake well. Take 1 hr before or 2 hrs after antacids, dairy pdt, minerals & meals. (Same As: Carafate) No Longer Active 03/01/2014 [facility] Bentyl 10 mg, 5 mL, Route: PO, Drug form: SYRP, Q4H, Dosing Weight 81.81, kg, PRN Spasm, Start date: 03/01/14 15:36:00, Stop date: 03/31/14 15:35:00Notes: (Same as: Bentyl) No Longer Active 03/01/2014 [facility] Zofran ODT 4 mg, 1 tab, Route: PO, Drug form: TABDIS, TID, Dosing Weight 81.81, kg, PRN as needed for nausea/vomiting, Start date: 03/01/14 15:36:00, Stop date: 03/31/14 15:35:00Notes: (Same as: Zofran ODT) No Longer Active 03/01/2014 [facility] 200 ACTUAT Albuterol 0.09 MG/ACTUAT Metered Dose Inhaler [Proventil] 180 microgram, Route: INHALATION, Drug Form: AERO/A, Dosing Weight 81.81, kg, QID, PRN as needed for wheezing, Start date: 03/01/14 15:35:00, Stop date: 03/31/14 15:34:00Notes: Albuterol 90 microgram/inh 8gm HFA Same as: Ventolin, Proventil No Longer Active 03/01/2014 [facility] Vancomycin 6.67 MG/ML Injectable Solution 1 gm, 200 mL, Route: IVPB, Drug form: INJ, [id number], Dosing Weight 81.818, kg, Start date: 03/01/14 2:00:00, Duration: 1 doses or times, Stop date: 03/01/14 2:00:00, Pharmacy to adjust dose for renal functionSpecial Instructions: Pharmacy to adjust dose for renal function Inactive 03/01/2014 [facility] Ativan 4 mg, 2 tab, Route: PO, Drug form: TAB, Bedtime, Dosing Weight 81.81, kg, Start date: 03/01/14 0:25:00, Duration: 30 day, Stop date: 03/29/14 21:00:00Notes: (Same as: Ativan) No Longer Active 03/01/2014 [facility] Zofran 4 mg, 2 mL, Route: IV, Drug form: INJ, Q4H, Dosing Weight 81.81, kg, PRN as needed for nausea/vomiting, Start date: 03/01/14 0:09:00, Duration: 30 day, Stop date: 03/31/14 0:08:00Notes: (Same as: Zofran) No Longer Active 03/01/2014 [facility] Alteplase 2 mg, 2 mL, Route: INJ, Drug form: INJ, ONCE, Dosing Weight 81.81, kg, Start date: 03/01/14 0:07:00, Stop date: 03/01/14 0:07:00Notes: "Syringe for catheter clearance or interventional radiology use. Reconstitute each vial of Cathflo Activase with 2.2ml Sterile Water resulting in a 1mg/ml solution. "Withdraw with a 5 micron filter needle." Stable for 8 hours only. (Same as: Activase) Inactive 03/01/2014 [facility] rivaroxaban 10 mg, 1 tab, Route: PO, Drug form: TAB, Q24H, Dosing Weight 81.818, kg, Start date: 02/28/14 22:11:00, Duration: 30 day, Stop date: 03/29/14 22:11:00Notes: (Same as: Xarelto) Do Not Crush No Longer Active 03/01/2014 [facility] Docusate Sodium 100 MG Oral Capsule 100 mg, 1 cap, Route: PO, Drug form: CAP, BID, Dosing Weight 81.818, kg, Start date: 02/28/14 17:00:00, Duration: 30 day, Stop date: 03/30/14 9:00:00Notes: (Same as: Colace) (Do Not Crush) No Longer Active 02/28/2014 [facility] Labetalol 10 mg, Route: IVP, Q5Min, Dosing Weight 81.818, kg, PRN Elevated BP, Start date: 02/28/14 16:17:00, Duration: 5 doses or times, Stop date: Limited # of times Inactive 02/28/2014 [facility] Hydralazine 10 mg, Route: IVP, Q20Min, Dosing Weight 81.818, kg, PRN Elevated BP, Start date: 02/28/14 16:17:00, Duration: 2 doses or times, Stop date: Limited # of times Inactive 02/28/2014 [facility] Ondansetron 4 mg, Route: IVP, ONCE, Dosing Weight 81.818, kg, PRN Nausea & Vomiting, Start date: 02/28/14 16:17:00 Inactive 02/28/2014 [facility] Hydromorphone 0.5 mg, Route: IVP, Q5Min, Dosing Weight 81.818, kg, PRN Pain Score 7-10, Start date: 02/28/14 16:17:00, Duration: 4 doses or times, Stop date: Limited # of times Inactive 02/28/2014 [facility] Fentanyl 25 microgram, Route: IVP, Q5Min, Dosing Weight 81.818, kg, PRN Pain Score 4-6, Start date: 02/28/14 16:17:00, Duration: 4 doses or times, Stop date: Limited # of times Inactive 02/28/2014 [facility] Naloxone 0.04 mg, Route: IVP, Q2MIN, Dosing Weight 81.818, kg, PRN Narcotic Reversal, Start date: 02/28/14 16:17:00, Duration: 8 doses or times, Stop date: Limited # of times Inactive 02/28/2014 [facility] Flumazenil 0.2 mg, Route: IVP, PRN, Dosing Weight 81.818, kg, PRN Benzodiazepine Reversal, Initial dose, Start date: 02/28/14 16:17:00, Duration: 30 day, Stop date: 03/30/14 16:16:00 Inactive 02/28/2014 [facility] Saline Flush 0.9% 10 ml, Route: IVP, Drug Form: INJ, Dosing Weight 81.818, kg, PRN, PRN Line Flush, Start date: 02/28/14 16:09:00, Duration: 30 day, Stop date: 03/30/14 16:08:00Notes: (Same as: BD Posiflush) No Longer Active 02/28/2014 [facility] D5W 1/2NS + KCL 20mEq/L 1000ml (Premix) 1,000 mL 1,000 mL, Rate: 40 ml/hr, Infuse over: 25 hr, Route: IV, Dosing Weight 81.818 kg, Total Volume: 1,000, Start date: 02/28/14 16:09:00, Duration: 30 day, Stop date: 03/30/14 16:08:00Notes: PREMIX IV - Do Not Alter No Longer Active 02/28/2014 [facility] Acetaminophen 325 MG / Hydrocodone Bitartrate 10 MG Oral Tablet [Chadwick 10/325] 2 tab, Route: PO, Drug Form: TAB, Dosing Weight 81.818, kg, Q6H, PRN Pain Score 7-10, Start date: 02/28/14 16:09:00, Duration: 30 day, Stop date: 03/30/14 16:08:00Notes: Do not exceed 4gm/day of acetaminophen. (Same as: Chadwick 325/10) No Longer Active 02/28/2014 [facility] Acetaminophen 325 MG / Hydrocodone Bitartrate 10 MG Oral Tablet 1 tab, Route: PO, Drug Form: TAB, Dosing Weight 81.818, kg, Q4H, PRN Pain Score 4-6, Start date: 02/28/14 16:09:00, Duration: 30 day, Stop date: 03/30/14 16:08:00Notes: Do not exceed 4gm/day of acetaminophen. (Same as: Chadwick 325/10) No Longer Active 02/28/2014 [facility] Hydromorphone 0.3 mg, 0.3 mL, Route: IVP, Drug form: INJ, Q3H, Dosing Weight 81.818, kg, PRN Pain Score 4-6, Start date: 02/28/14 16:09:00, Duration: 30 day, Stop date: 03/30/14 16:08:00 No Longer Active 02/28/2014 [facility] Morphine 2 mg, 1 mL, Route: IVP, Drug form: INJ, Q3H, Dosing Weight 81.818, kg, PRN Pain Score 1-3, Start date: 02/28/14 16:09:00, Duration: 30 day, Stop date: 03/30/14 16:08:00Notes: (Same as:MORPhine Sulfate) No Longer Active 02/28/2014 [facility] Ketorolac 15 mg, 1 mL, Route: IVP, Drug form: INJ, Q6H, Dosing Weight 81.818, kg, PRN Pain Score 1-3, Start date: 02/28/14 16:09:00, Duration: 6 doses or times, Stop date: Limited # of timesNotes: (Same as:Tor adol) IV bolus must be given >15 seconds. Give IM administration slowly and deeply into the muscle. Not for use > 4 days. No Longer Active 02/28/2014 [facility] Acetaminophen 325 MG / Hydrocodone Bitartrate 5 MG Oral Tablet 1 tab, Route: PO, Drug Form: TAB, Dosing Weight 81.818, kg, Q4H, PRN Pain Score 4-6, Start date: 02/28/14 16:09:00, Duration: 30 day, Stop date: 03/30/14 16:08:00Notes: (Same as: Chadwick 325/5) Do not exceed 4gm/day of acetaminophen. No Longer Active 02/28/2014 [facility] Aluminum Hydroxide 40 MG/ML / Magnesium Hydroxide 40 MG/ML / Simethicone 4 MG/ML Oral Suspension 30 ml, Route: PO, Drug Form: SUSP, Dosing Weight 81.818, kg, Q4H, PRN Indigestion, Start date: 02/28/14 16:09:00, Duration: 30 day, Stop date: 03/30/14 16:08:00Notes: (aluminum hydroxide- magnesium hyd-simethicone [phone]/5ml 30 ml ud MACI) No Longer Active 02/28/2014 [facility] Diphenhydramine 12.5 mg, 5 mL, Route: PO, Drug form: LIQ, Q6H, Dosing Weight 81.818, kg, PRN Itching, Start date: 02/28/14 16:09:00, Duration: 30 day, Stop date: 03/30/14 16:08:00Notes: (Same as: Benadryl) No Longer Active 02/28/2014 [facility] Dulcolax Laxative 5 mg, 1 tab, Route: PO, Drug form: ECTAB, Q24H, Dosing Weight 81.818, kg, PRN Constipation, Start date: 02/28/14 16:09:00, Duration: 30 day, Stop date: 03/30/14 16:08:00Notes: (Same As: Dulcolax, Correctol) (Do Not Crush) "Do Not Crush" No Longer Active 02/28/2014 [facility] zolpidem 5 mg, 1 tab, Route: PO, Drug form: TAB, Bedtime, Dosing Weight 81.818, kg, PRN Insomnia, Start date: 02/28/14 16:09:00, Stop date: 03/30/14 16:08:00Notes: (Same As: Ambien) No Longer Active 02/28/2014 [facility] Temazepam 7.5 mg, 1 cap, Route: PO, Drug form: CAP, Bedtime, Dosing Weight 81.818, kg, PRN Insomnia, Start date: 02/28/14 16:09:00, Duration: 30 day, Stop date: 03/30/14 16:08:00Notes: (Same As: Restoril) No Longer Active 02/28/2014 [facility] Promethazine 12.5 mg, 0.5 mL, Route: IVPB, Q4H, Dosing Weight 81.818, kg, PRN Nausea & Vomiting, Start date: 02/28/14 16:09:00, Duration: 30 day, Stop date: 03/30/14 16:08:00Notes: Do not give IV push. (Same as: Phenergan) No Longer Active 02/28/2014 [facility] Vancomycin 1 gm, Route: IVPB, Drug form: INJ, ONCE, Dosing Weight 81.818, kg, Start date: 02/28/14 14:55:00, Stop date: 02/28/14 14:55:00 Inactive 02/28/2014 [facility] Calcium Chloride 0.0014 MEQ/ML / Potassium Chloride 0.004 MEQ/ML / Sodium Chloride 0.103 MEQ/ML / Sodium Lactate 0.028 MEQ/ML Injectable Solution 1,000 mL, Rate: 25 ml/hr, Infuse over: 40 hr, Route: IV, Dosing Weight 81.818 kg, Total Volume: 1,000, Start date: 02/28/14 12:41:00, Duration: 30 day, Stop date: 03/30/14 12:40:00 Inactive 02/28/2014 [facility] Acetaminophen 325 MG / Hydrocodone Bitartrate 5 MG Oral Tablet [Chadwick 5/325] 1 tab, PO, Q6H, 0 Refill(s) No Longer Active 02/24/2014 [facility] Hydroxychloroquine Sulfate 200 MG Oral Tablet [Plaquenil] 200 mg=1 tab, PO, Daily, # 60 tab, 0 Refill(s) Active 02/24/2014 [facility] Sucralfate 100 MG/ML Oral Suspension [Carafate] 0 Refill(s) Active 02/24/2014 [facility] Mirtazapine 15 MG Oral Tablet [Remeron] 15 mg=1 tab, PO, Bedtime, # 30 tab, 0 Refill(s) No Longer Active 02/24/2014 [facility] DIOVAN 80 MG TABS Active 01/24/2014 [facility]ON SOLTAB 45 MG TBDP Active 01/24/[facility] CYMBALTA 30 MG CPEP Active 01/24/[facility] TOPAMAX 50 MG TABS Active 01/24/2014 [facility] NORVASC 10 MG TABS Active 01/24/2014 [facility] ATIVAN 2 MG TABS Active 01/24/2014 [facility] LOVASTATIN 20 MG TABS Active 01/24/2014 [facility] BENTYL 10 MG CAPS Active 01/24/2014 [facility] B-12 Active 01/24/2014 [facility] NORCO 10-325 MG TABS Active 01/24/2014 [facility] ZOFRAN 8 MG TABS Active 01/24/2014 [facility] PLAQUENIL 200 MG TABS Active 01/24/2014 [facility] Plaquenil 2 tabs Orally Active 200 MG Orally Once a day Tomasz 11/01/2013 [facility] rivaroxaban 10 MG Oral Tablet [Xarelto] =10 mg, PO, Daily, # 50 tab, 0 Refill(s) Active 04/23/2013 [facility] Acetaminophen 325 MG / Hydrocodone Bitartrate 10 MG Oral Tablet [Chadwick 10/325] 1 tab, PO, Q6H, for pain, # 60 tab, 0 Refill(s) Active 04/23/2013 [facility] Kenalog-40 80 mg, 2 mL, Route: intra-ARTICULAR, Drug form: INJ, ONCE, Dosing Weight 81, kg, Priority: Routine, Start date: 04/23/13 9:00:00, Stop date: 04/23/13 9:00:00"Preservative Free" Inactive 04/23/2013 [facility] bupivacaine 0.5% 10 mL, Route: intra-ARTICULAR, Drug Form: INJ, Dosing Weight 81, kg, ONCE, Start date: 04/23/13 9:00:00, Stop date: 04/23/13 9:00:00Preservative free. (Same As: Marcaine-MPF) Inactive 04/23/2013 [facility] Cymbalta 120 mg, 4 cap, Route: PO, Drug form: DRC, Bedtime, Dosing Weight 81, kg, Start date: 04/22/13 21:00:00, Duration: 30 day, Stop date: 05/21/13 21:00:00Non-Formulary Drug. (Same as: Cymbalta) (Do Not Crush) No Longer Active 04/23/2013 [facility] D5W 1/2NS + KCL 20mEq/L 1000ml (Premix) 1,000 mL 1,000 mL, Rate: 100 ml/hr, Infuse over: 10 hr, Route: IV, Dosing Weight 81 kg, Total Volume: 1,000, Start date: 04/22/13 13:47:00, Duration: 30 day, Stop date: 05/22/13 13:46:00PREMIX IV - Do Not Alter No Longer Active 04/22/2013 [facility] Klor-Con 40 mEq, 2 tab, Route: PO, Drug form: ERTAB, ONCE, Dosing Weight 81, kg, Priority: NOW, Start date: 04/22/13 12:44:00, Stop date: 04/22/13 12:44:00(Same as: K-Dur 20) "Do Not Crush" With food and full glass of water Inactive 04/22/2013 [facility] Magnesium Sulfate 1 gm, 50 mL, Route: IVPB, Drug form: INJ, ONCE, Dosing Weight 81, kg, Start date: 04/22/13 12:44:00, Duration: 2 hr, Stop date: 04/22/13 12:44:00 Inactive 04/22/2013 [facility] Docusate Sodium 100 MG Oral Capsule 100 mg, 1 cap, Route: PO, Drug form: CAP, BID, Dosing Weight 81, kg, Start date: 04/22/13 9:00:00, Duration: 30 day, Stop date: 05/21/13 17:00:00(Same as: Colace) (Do Not Crush) No Longer Active 04/22/2013 [facility] Marcaine HCl 10 mL, Route: intra-ARTICULAR, Drug Form: INJ, Dosing Weight 81, kg, ONCE, Start date: 04/22/13 8:21:00, Stop date: 04/22/13 8:21:00Preservative free. (Same As: Marcaine-MPF) Inactive 04/22/2013 [facility] Kenalog-40 80 mg, 2 mL, Route: intra-ARTICULAR, Drug form: INJ, ONCE, Dosing Weight 81, kg, Priority: NOW, Start date: 04/22/13 8:20:00, Stop date: 04/22/13 8:20:00"Preservative Free" Inactive 04/22/2013 [facility] Enoxaparin 40 mg, 0.4 mL, Route: SUB-Q, Drug form: INJ, [id number], Dosing Weight 81, kg, Start date: 04/22/13 6:00:00, Duration: 30 day, Stop date: 05/21/13 6:00:00(Same as: Lovenox) No Longer Active 04/22/2013 [facility] Vancomycin 6.67 MG/ML Injectable Solution 1 gm, 200 mL, Route: IVPB, Drug form: INJ, [id number], Dosing Weight 81, kg, Start date: 04/22/13 4:00:00, Duration: 1 doses or times, Stop date: 04/22/13 4:00:00, Pharmacy to adjust dose for renal functionPharmacy to adjust dose for renal function Inactive 04/22/2013 [facility] Hydromorphone 1 mg, 1 mL, Route: IV, Drug form: INJ, Q4H, Dosing Weight 81, kg, PRN Pain Score 4-6, Start date: 04/21/13 21:55:00, Duration: 30 day, Stop date: 05/21/13 21:54:00 No Longer Active 04/22/2013 [facility] Topamax 200 mg, 2 tab, Route: PO, Drug form: TAB, Bedtime, Dosing Weight 81, kg, Start date: 04/21/13 21:00:00, Duration: 30 day, Stop date: 05/20/13 21:00:00(Same As: Topamax) "Do Not Crush" No Longer Active 04/22/2013 [facility] ropivacaine Dosing: Per Nerve Block Dosing Order, Route: NERVE BLOCK, Start date: 04/21/13 18:39:00 400 mL, Drug Form: INJ, Dosing Weight 81, kg, Duration: 30 day, Stop date: 05/21/13 18:38:00Final concentration : Ropivacaine 0.2% 400 ml No Longer Active 04/21/2013 [facility] Saline Flush 0.9% 5 ml, Route: IVP, Drug Form: INJ, Dosing Weight 81, kg, PRN, PRN Line Flush, Start date: 04/21/13 17:39:00, Duration: 30 day, Stop date: 05/21/13 17:38:00(Same as: BD Posiflush) No Longer Active 04/21/2013 [facility] D5W 1/2NS + KCL 20mEq/L 1000ml (Premix) 1,000 mL 1,000 mL, Rate: 75 ml/hr, Infuse over: 13.3 hr, Route: IV, Dosing Weight 81 kg, Total Volume: 1,000, Start date: 04/21/13 17:39:00, Duration: 30 day, Stop date: 05/21/13 17:38:00PREMIX IV - Do Not Alter Inactive 04/21/2013 [facility] Dulcolax Laxative 5 mg, 1 tab, Route: PO, Drug form: ECTAB, Q24H, Dosing Weight 81, kg, PRN Constipation, Start date: 04/21/13 17:39:00, Duration: 30 day, Stop date: 05/21/13 17:38:00(Same As: Dulcolax, Correctol) (Do Not Crush) "Do Not Crush" No Longer Active 04/21/2013 [facility] Aluminum Hydroxide 40 MG/ML / Magnesium Hydroxide 40 MG/ML / Simethicone 4 MG/ML Oral Suspension 30 ml, Route: PO, Drug Form: SUSP, Dosing Weight 81, kg, Q4H, PRN Indigestion, Start date: 04/21/13 17:39:00, Duration: 30 day, Stop date: 05/21/13 17:38:00(aluminum hydroxide-magnesium hyd-simethico ne [phone]/5ml 30 ml ud MACI) No Longer Active 04/21/2013 [facility] Diphenhydramine 12.5 mg, 0.5 tab, Route: PO, Drug form: TAB, Q6H, Dosing Weight 81, kg, PRN Itching, Start date: 04/21/13 17:39:00, Duration: 30 day, Stop date: 05/21/13 17:38:00 No Longer Active 04/21/2013 [facility] Ondansetron 4 mg, 2 mL, Route: IVP, Drug form: INJ, Q6H, Dosing Weight 81, kg, PRN Nausea & Vomiting, Start date: 04/21/13 17:39:00, Duration: 30 day, Stop date: 05/21/13 17:38:00(Same as: Zofran) No Longer Active 04/21/2013 [facility] Morphine 2 mg, 1 mL, Route: IVP, Drug form: INJ, Q3H, Dosing Weight 81, kg, PRN Pain Score 1-3, Start date: 04/21/13 17:39:00, Duration: 30 day, Stop date: 05/21/13 17:38:00(Same as:MORPhine Sulfate) No Longer Active 04/21/2013 [facility] Acetaminophen 325 MG / Hydrocodone Bitartrate 10 MG Oral Tablet 1 tab, Route: PO, Drug Form: TAB, Dosing Weight 81, kg, Q4H, PRN Pain Score 4-6, Start date: 04/21/13 17:39:00, Duration: 30 day, Stop date: 05/21/13 17:38:00Do not exceed 4gm/day of acetaminophen. (Same as: Chadwick 325/10) No Longer Active 04/21/2013 [facility] Acetaminophen 325 MG / Hydrocodone Bitartrate 5 MG Oral Tablet 1 tab, Route: PO, Drug Form: TAB, Dosing Weight 81, kg, Q4H, PRN Pain Score 4-6, Start date: 04/21/13 17:39:00, Duration: 30 day, Stop date: 05/21/13 17:38:00(Same as: Chadwick 325/5) Do not exceed 4gm/day of acetaminophen. No Longer Active 04/21/2013 [facility] Acetaminophen 325 MG / Hydrocodone Bitartrate 10 MG Oral Tablet [Ch[place]wick 10/325] 1 tab, Route: PO, Dosing Weight 81.818, kg, ONCE, Start date: 04/21/13 17:14:00, Stop date: 04/21/13 17:14:00 Inactive 04/21/2013 [facility] Hydromorphone 0.5 mg, Route: IVP, Q5Min, Dosing Weight 81, kg, PRN Pain Score 7-10, Start date: 04/21/13 17:14:00, Duration: 4 doses or times, Stop date: Limited # of times Inactive 04/21/2013 [facility] Ondansetron 4 mg, Route: IVP, ONCE, Dosing Weight 81, kg, PRN Nausea & Vomiting, Start date: 04/21/13 17:14:00 Inactive 04/21/2013 [facility] Flumazenil 0.2 mg, Route: IVP, PRN, Dosing Weight 81, kg, PRN Benzodiazepine Reversal, Initial dose, Start date: 04/21/13 17:14:00, Duration: 30 day, Stop date: 05/21/13 17:13:00 Inactive 04/21/2013 [facility] Naloxone 0.04 mg, Route: IVP, Q2MIN, Dosing Weight 81, kg, PRN Narcotic Reversal, Start date: 04/21/13 17:14:00, Duration: 8 doses or times, Stop date: Limited # of times Inactive 04/21/2013 [facility] Hydralazine 10 mg, Route: IVP, Q20Min, Dosing Weight 81, kg, PRN Elevated BP, Start date: 04/21/13 17:14:00, Duration: 2 doses or times, Stop date: Limited # of times Inactive 04/21/2013 [facility] Fentanyl 25 microgram, Route: IVP, Q5Min, Dosing Weight 81, kg, PRN Pain Score 4-6, Start date: 04/21/13 17:14:00, Duration: 4 doses or times, Stop date: Limited # of times Inactive 04/21/2013 [facility] Metoprolol 1 mg, Route: IVP, Q5Min, Dosing Weight 81, kg, PRN Other -See Comment, Start date: 04/21/13 17:14:00, Duration: 5 doses or times, Stop date: Limited # of times Inactive 04/21/2013 [facility] Oxycodone 5 mg, Route: PO, Drug form: TAB, Q4H, Dosing Weight 81, kg, PRN Pain Score 4-6, Start date: 04/21/13 17:14:00, Duration: 30 day, Stop date: 05/21/13 17:13:00 Inactive 04/21/2013 [facility] Calcium Chloride 0.0014 MEQ/ML / Potassium Chloride 0.004 MEQ/ML / Sodium Chloride 0.103 MEQ/ML / Sodium Lactate 0.028 MEQ/ML Injectable Solution 1,000 mL, Rate: 25 ml/hr, Infuse over: 40 hr, Route: IV, Dosing Weight 81 kg, Total Volume: 1,000, Start date: 04/21/13 15:20:00, Duration: 30 day, Stop date: 05/21/13 15:19:00 Inactive 04/21/2013 [facility] gabapentin 100 MG Oral Capsule [Neurontin] 100 mg, 1 cap, Route: PO, Drug form: CAP, QID, Dosing Weight 81, kg, Start date: 04/21/13 13:00:00, Duration: 30 day, Stop date: 05/21/13 9:00:00(Same as: Neurontin) No Longer Active 04/21/2013 [facility] pneumococcal capsular polysaccharide type 1 vaccine / pneumococcal capsular polysaccharide type 10A vaccine / pneumococcal capsular polysaccharide type 11A vaccine / pneumococcal capsular polysaccharide type 12F vaccine / pneumococcal capsular polysacchar 0.5 ml, Route: IM, Drug Form: INJ, Daily, Start date: 04/21/13 9:00:00, Duration: 1 doses or times, Stop date: 04/21/13 9:00:00(Same as: Pneumovax 23) Refrigerate Inactive 04/21/2013 [facility] Influenza Virus Vaccine, Inactivated X-Uynotiog-45 (H3N2)-like virus ([id number] [facility] [place] strain / Influenza Virus Vaccine, Inactivated [id number], IVR-148 (H1N1) strain / Influenza Virus Vaccine, Inactivated, [id number] 0.5 ml, Route: IM, Drug Form: SUSP, Daily, Start date: 04/21/13 9:00:00, Duration: 1 doses or times, Stop date: 04/21/13 9:00:00(Same as: Fluzone, Fluvirin) Shake well prior to administration No Longer Active 04/21/2013 [facility] D5W 1/2NS + KCL 20mEq/L 1000ml (Premix) 1,000 mL 1,000 mL, Rate: 50 ml/hr, Infuse over: 20 hr, Route: IV, Dosing Weight 81 kg, Total Volume: 1,000, Start date: 04/21/13 8:46:00, Duration: 30 day, Stop date: 05/21/13 8:45:00PREMIX IV - Do Not Alter Inactive 04/21/2013 [facility] Lorazepam 1 mg, 1 tab, Route: PO, Drug form: TAB, Bedtime, Dosing Weight 81.818, kg, PRN Insomnia, Start date: 04/20/13 23:21:00, Duration: 30 day, Stop date: 05/20/13 23:20:00(Same as: Ativan) No Longer Active 04/21/2013 [facility] Ambien 5 mg, 1 tab, Route: PO, Drug form: TAB, Bedtime, Dosing Weight 81.818, kg, PRN Insomnia, Start date: 04/20/13 23:18:00, Duration: 30 day, Stop date: 05/20/13 23:17:00(Same As: Ambien) No Longer Active 04/21/2013 [facility] Vancomycin 1.25 gm, 250 mL, Route: IVPB, Drug form: INJ, ONCALL, Dosing Weight 81.818, kg, Start date: 04/20/13 18:00:00, Duration: 30 day, Stop date: 05/20/13 17:59:00Same as: Vancocin-NS (premixed) No Longer Active 04/20/2013 [facility] Dilaudid 1 mg, 1 mL, Route: IV, Drug form: INJ, Q3H, Dosing Weight 81.818, kg, PRN Pain, Start date: 04/20/13 14:16:00, Duration: 30 day, Stop date: 05/20/13 14:15:00 No Longer Active 04/20/2013 [facility] mirtazapine 45 mg oral tablet, disintegrating 90 mg=2 tab, PO, Bedtime, 0 Refill(s) Active 04/20/2013 [facility] Ondansetron 4 MG Disintegrating Tablet [Zofran] 4 mg=1 tab, PO, TID, as needed for nausea/vomiting, 0 Refill(s) Active 04/20/2013 [facility] Vitamin B12 1000 mcg/mL injectable solution 1,000 microgram=1 mL, IM, QFri, 0 Refill(s) Active 04/20/2013 [facility] topiramate 50 MG Oral Tablet [Topamax] 200 mg=4 tab, PO, Bedtime, 0 Refill(s) Active 04/20/2013 [facility] valsartan 80 MG Oral Tablet [Diovan] 160 mg=2 tab, PO, Bedtime, 0 Refill(s) Active 04/20/2013 [facility] zolpidem 5 mg oral tablet 5 mg=1 tab, PO, Bedtime, 0 Refill(s) Active 04/20/2013 [facility] duloxetine 30 MG Enteric Coated Capsule [Cymbalta] 150 mg=5 cap, PO, Bedtime, 0 Refill(s) Active 04/20/2013 [facility] Acetaminophen 650 mg, 20.3 mL, Route: PO, Drug form: LIQ, Q4H, Dosing Weight 77.273, kg, PRN Pain 1-3/Temp > 100.4 F, Start date: 04/20/13 12:02:00, Duration: 30 day, Stop date: 05/20/13 12:01:00Max [id number]/day (4 gm/day). (Same as: Tylenol) No Longer Active 04/20/2013 [facility] Ondansetron 4 mg, 2 mL, Route: IVP, Drug form: INJ, Q8H, Dosing Weight 77.273, kg, PRN Nausea & Vomiting, Start date: 04/20/13 12:02:00, Duration: 30 day, Stop date: 05/20/13 12:01:00(Same as: Zofran) No Longer Active 04/20/2013 [facility] Morphine 2 mg, 1 mL, Route: IVP, Drug form: INJ, Q3H, Dosing Weight 77.273, kg, PRN Pain Score 4-6, Start date: 04/20/13 12:02:00, Duration: 30 day, Stop date: 05/20/13 12:01:00(Same as:MORPhine Sulfate) Inactive 04/20/2013 [facility] Sodium Chloride 0.9% (Bolus) IV 500 mL 500 mL, Rate: 500 ml/hr, Infuse over: 1 hr, Route: IV, Dosing Weight 77.273 kg, Total Volume: 500, Priority: STAT, Start date: 04/20/13 8:39:00, Duration: 1 doses or times, Stop date: 04/20/13 9:38:00, Bolus DoseBolus Dose Inactive 04/20/2013 [facility] Morphine 4 mg, 2 mL, Route: IVP, Drug form: INJ, ONCE, Dosing Weight 77.273, kg, Priority: STAT, Start date: 04/20/13 8:38:00, Stop date: 04/20/13 8:38:00(Same as:MORPhine Sulfate) Inactive 04/20/2013 [facility] Zofran 4 mg, 2 mL, Route: IVP, Drug form: INJ, ONCE, Dosing Weight 77.273, kg, Priority: STAT, Start date: 04/20/13 6:12:00, Stop date: 04/20/13 6:12:00(Same as: Zofran) Inactive 04/20/2013 [facility] Morphine 4 mg, 2 mL, Route: IVP, Drug form: INJ, ONCE, Dosing Weight 77.273, kg, Priority: STAT, Start date: 04/20/13 6:11:00, Stop date: 04/20/13 6:11:00(Same as:MORPhine Sulfate) Inactive 04/20/2013 [facility] Chadwick 10/325 oral tablet 1 tab, Route: PO, Dosing Weight 79.545, kg, ONCE, Start date: 01/18/13 17:03:00, Stop date: 01/18/13 17:03:00 Inactive Esther 01/18/2013 [facility] clindamycin 900 mg, Route: IVPB, ONCE, Dosing Weight 79.545, kg, Start date: 01/18/13 14:03:00, Stop date: 01/18/13 14:03:00 Inactive Fili 01/18/2013 [facility] Lactated Ringers Injection IV 1000 mL 1,000 mL, Rate: 25 ml/hr, Infuse over: 40 hr, Route: IV, Dosing Weight 79.545 kg, Total Volume: 1,000, Start date: 01/18/13 13:29:00, Duration: 30 day, Stop date: 02/17/13 13:28:00 Inactive Gonzalez 01/18/2013 [facility] Chadwick 10/325 oral tablet 1 tab, PO, Q6H, for pain, # 24 tab, 0 Refill(s) Active 01/17/2013 [facility] Lasix 40 mg oral tablet 40 mg=1 tab, PO, PRN, # 30 tab, 0 Refill(s) Active 01/17/2013 [facility] Proventil HFA 90 mcg/inh inhalation aerosol with adapter 1 puff, INHALATION, QID, for wheezing, # 25 gm, 0 Refill(s) Active 01/17/2013 [facility] heparin flush 500 unit, 5 mL, Route: IVP, Drug form: SOLN, Q30D, PRN See Nurse's Notes, Start date: 08/14/12 21:07:00, Duration: 30 day, Stop date: 09/13/12 21:06:00 IVP No Longer Active Yoselyn 08/15/2012 [facility] Sodium Chloride 0.9% IV 20 mL, Route: IVP, Start date: 08/14/12 21:05:00, Duration: 30 day, Stop date: 09/13/12 21:04:00, PRN See Nurse's Notes IVP No Longer Active Yoselyn 08/15/2012 [facility] Sodium Chloride 0.9% IV IV, 30 ml/hr, ONCALL, Start date: 08/13/12 23:00:00, Duration: 1, 250 ml IV No Longer Active Mirna 08/14/2012 [facility] Cymbalta (DULoxetine) 150 mg tab Pt's Own MED Cymbalta (DULoxetine) 150 mg tab Pt's Own MED, 150 mg, Drug form: MISC, Route: PO, Q8PM, 08/12/12 20:00:00, Duration: 30 day, Stop date: 09/10/12 20:00:00 PO No Longer Active [facility] 08/13/2012 [facility] Cymbalta 150 mg, Route: PO, Q8PM, Dosing Weight 81.3, kg, Start date: 08/12/12 20:00:00, Duration: 30 day, Stop date: 09/10/12 20:00:00 PO No Longer Active [facility] 08/13/2012 [facility] gabapentin 100 mg oral capsule 100 mg, 1 cap, Route: PO, Drug form: CAP, Q8H, Dosing Weight 81.3, kg, Start date: 08/12/12 16:00:00, Duration: 30 day, Stop date: 09/11/12 8:00:00 PO No Longer Active [facility] 08/12/2012 [facility] MiraLax 17 gm, 1 pkt, Route: PO, Drug form: PWDR, Daily, Dosing Weight 81.3, kg, Start date: 08/12/12 9:00:00, Duration: 30 day, Stop date: 09/10/12 9:00:00 PO No Longer Active Mary Ellen 08/12/2012 [facility] Remeron SolTab 45 mg, Route: PO, Drug form: TAB, Bedtime, Dosing Weight 81.3, kg, Start date: 08/11/12 21:00:00, Duration: 30 day, Stop date: 09/09/12 21:00:00 PO No Longer Active [facility] 08/12/2012 [facility] Remeron SolTab 45mg po bedtime*Pts own med* Remeron SolTab 45mg po bedtime*Pts own med*, 90 mg, Drug form: MISC, Route: PO, Bedtime, 08/11/12 21:00:00, Duration: 30 day, Stop date: 09/09/12 21:00:00 PO No Longer Active [facility] 08/12/2012 [facility] gabapentin 100 mg oral capsule 100 mg, 1 cap, Route: PO, Drug form: CAP, BID, Dosing Weight 81.3, kg, Start date: 08/11/12 17:00:00, Duration: 30 day, Stop date: 09/10/12 9:00:00 PO No Longer Active Brendel 08/11/2012 [facility] senna 8.6 mg oral tablet 17.2 mg, 2 tab, Route: PO, Drug Form: TAB, Dosing Weight 81.3, kg, BID, PRN as needed for constipation, Start date: 08/11/12 12:18:00, Duration: 30 day, Stop date: 09/10/12 12:17:00 PO No Longer Active Brendel 08/11/2012 [facility] MiraLax 17 gm, 1 pkt, Route: PO, Drug form: PWDR, Daily, Dosing Weight 81.3, kg, PRN Constipation, Start date: 08/11/12 12:18:00, Duration: 30 day, Stop date: 09/10/12 12:17:00 PO No Longer Active Brend 08/11/2012 [facility] enoxaparin 40 mg, 0.4 mL, Route: SUB-Q, Drug form: INJ, Q24H, Dosing Weight 81.3, kg, Start date: 08/11/12 5:00:00, Duration: 30 day, Stop date: 09/09/12 5:00:00 SUB-Q No Longer Active [facility] 08/11/2012 [facility] vancomycin (SCIP) 1 gm, 200 mL, Route: IVPB, Drug form: INJ, [id number], Dosing Weight 81.3, kg, Start date: 08/11/12 3:00:00, Duration: 1 doses or times, Stop date: 08/11/12 3:00:00, Pharmacy to adjust dose for renal functionPharmacy to adjust dose for renal function IVPB No Longer Active [facility] 08/11/2012 [facility] naloxone 0.04 mg, 0.04 mL, Route: IVP, Drug form: INJ, Q2MIN, Dosing Weight 81.3, kg, PRN Narcotic Reversal, Start date: 08/10/12 18:45:00, Duration: 30 day, Stop date: 09/09/12 18:44:00 IVP No Longer Active [place] 08/10/2012 [facility] ropivacaine 0.1% in NS - site 1 250 mL Dosing: Per Nerve Block Dosing Order, Route: NERVE BLOCK, Start date: 08/10/12 18:45:00 250 mL, Drug Form: SOLN, Dosing Weight 81.3, kg, Duration: 30 day, Stop date: 09/09/12 18:44:00 NERVE BLOCK No Longer Active [place] 08/10/2012 [facility] ketorolac 15 mg, 1 mL, Route: IVP, Drug form: INJ, ONCE, Dosing Weight 81.3, kg, Start date: 08/10/12 18:45:00, Duration: 1 doses or times, Stop date: 08/10/12 18:45:00 IVP No Longer Active [place] 08/10/2012 [facility] ondansetron 4 mg, 2 mL, Route: IVP, Drug form: INJ, ONCE, Dosing Weight 81.3, kg, PRN Nausea & Vomiting, Start date: 08/10/12 18:45:00, Duration: 1 doses or times, Stop date: Limited # of times IVP No Longer Active [place] 08/10/2012 [facility] ketorolac 15 mg, 1 mL, Route: IVP, Drug form: INJ, Q6H, Dosing Weight 81.3, kg, Start date: 08/10/12 18:00:00, Duration: 6 doses or times, Stop date: 08/12/12 0:00:00 IVP No Longer Active [facility] 08/10/2012 [facility] Zofran 4 mg, Route: IVP, Drug form: INJ, ONCE, Dosing Weight 81.3, kg, Start date: 08/10/12 17:57:00, Stop date: 08/10/12 17:57:00 IVP No Longer Active [place] 08/10/2012 [facility] Saline Flush 0.9% 5 ml, Route: IVP, Drug Form: INJ, Dosing Weight 81.3, kg, PRN, PRN Line Flush, Start date: 08/10/12 16:05:00, Duration: 30 day, Stop date: 09/09/12 16:04:00 IVP No Longer Active [facility] 08/10/2012 [facility] D5W 1/2NS + KCL 20mEq/L 1000ml (Premix) 1,000 mL 1,000 mL, Rate: 75 ml/hr, Infuse over: 13.3 hr, Route: IV, Dosing Weight 81.3 kg, Total Volume: 1,000, Start date: 08/10/12 16:05:00, Duration: 30 day, Stop date: 09/09/12 16:04:00 IV No Longer Active [facility] 08/10/2012 [facility] Milk of Magnesia 30 ml, Route: PO, Drug Form: SUSP, Dosing Weight 81.3, kg, BID, PRN as needed for constipation, Start date: 08/10/12 16:05:00, Duration: 30 day, Stop date: 09/09/12 16:04:00 PO No Longer Active [facility] 08/10/2012 [facility] promethazine 12.5 mg, 0.5 mL, Route: IM, Drug form: INJ, Q4H, Dosing Weight 81.3, kg, PRN Nausea & Vomiting, Start date: 08/10/12 16:05:00, Duration: 30 day, Stop date: 09/09/12 16:04:00 IM No Longer Active [facility] 08/10/2012 [facility] docusate 100 mg, 1 cap, Route: PO, Drug form: CAP, BID, Dosing Weight 81.3, kg, PRN Constipation, Start date: 08/10/12 16:05:00, Duration: 30 day, Stop date: 09/09/12 16:04:00 PO No Longer Active [facility] 08/10/2012 [facility] morphine Sulfate 4 mg, 2 mL, Route: IVP, Drug form: INJ, Q3H, Dosing Weight 81.3, kg, PRN Pain Score 4-6, Start date: 08/10/12 16:05:00, Duration: 30 day, Stop date: 09/09/12 16:04:00 IVP No Longer Active [facility] 08/10/2012 [facility] acetaminophen-hydrocodone 325 mg-5 mg oral tablet 2 tab, Route: PO, Drug Form: TAB, Dosing Weight 81.3, kg, Q4H, PRN Pain Score 4-6, Start date: 08/10/12 16:05:00, Duration: 30 day, Stop date: 09/09/12 16:04:00 PO No Longer Active [facility] 08/10/2012 [facility] ondansetron 4 mg, 2 mL, Route: IVP, Drug form: INJ, Q4H, Dosing Weight 81.3, kg, PRN Nausea & Vomiting, Start date: 08/10/12 16:05:00, Duration: 30 day, Stop date: 09/09/12 16:04:00 IVP No Longer Active [facility] 08/10/2012 [facility] diphenhydrAMINE 25 mg, 1 tab, Route: PO, Drug form: TAB, Bedtime, Dosing Weight 81.3, kg, PRN Insomnia, Start date: 08/10/12 16:05:00, Duration: 30 day, Stop date: 09/09/12 16:04:00 PO No Longer Active [facility] 08/10/2012 [facility] Fleet Enema Route: ND, Dosing Weight 81.3, kg, [id number], PRN as needed for constipation, Start date: 08/10/12 16:05:00, Duration: 30 day, Stop date: 09/09/12 16:04:00 ND No Longer Active [facility] 08/10/2012 [facility] Lactated Ringers IV 1,000 mL 1,000 mL, Rate: 25 ml/hr, Infuse over: 40 hr, Route: IV, Dosing Weight 81.3 kg, Total Volume: 1,000, Start date: 08/10/12 14:24:00, Duration: 30 day, Stop date: 09/09/12 14:23:00 IV No Longer Active [facility] 08/10/2012 [facility] vancomycin 1 gm, 200 mL, Route: IVPB, Drug form: INJ, ONCALL, Start date: 08/10/12 6:00:00, Duration: 1 day, Stop date: 08/11/12 5:59:00 IVPB No Longer Active [facility] 08/10/2012 [facility] Toradol 30 mg/mL injectable solution 30 mg, 1 mL, Route: IV, Drug form: INJ, Q6H, Dosing Weight 81.364, kg, Start date: 08/09/12 12:00:00, Duration: 2 day, Stop date: 08/11/12 6:00:00 IV No Longer Active Tarik 08/09/2012 [facility] Zofran 4 mg, 2 mL, Route: IVP, Drug form: INJ, Q4H, Dosing Weight 81.3, kg, PRN Nausea, Start date: 08/09/12 11:20:00, Duration: 30 day, Stop date: 09/08/12 11:19:00 IVP No Longer Active [place] 08/09/2012 [facility] Dilaudid 1 mg, 1 mL, Route: IV, Drug form: SOLN, Q3H, Dosing Weight 81.3, kg, PRN Pain, Start date: 08/09/12 11:20:00, Duration: 30 day, Stop date: 09/08/12 11:19:00 IV No Longer Active Yoselyn 08/09/2012 [facility] Toradol 30 mg/mL injectable solution 30 mg, 1 mL, Route: IV, Drug form: INJ, Q6H, Dosing Weight 81.364, kg, PRN Pain, Start date: 08/09/12 9:53:00, Duration: 2 day, Stop date: 08/11/12 9:52:00 IV No Longer Active Yoselyn 08/09/2012 [facility] Diovan 160 mg oral tablet 160 mg, 1 tab, PO, Bedtime, Substitution Allowed, TAB PO No Longer Active 08/09/2012 [facility] doxycycline 100 mg, PO, BID, Substitution Allowed, TAB PO No Longer Active 08/09/2012 [facility] Lamisil 250 mg, PO, Daily, 30 tab, Substitution Allowed, TAB PO Active 08/09/2012 [facility] Macrodantin 100 mg, PO, Daily, Substitution Allowed, TAB PO Active 08/09/2012 [facility] Neurontin 100 mg oral capsule 100 mg, 1 cap, PO, BID, Substitution Allowed, TAB PO Active 08/09/2012 [facility] Zofran 4 mg, PO, Q6H, PRN, as needed for nausea/vomiting, Substitution Allowed, TAB PO Active 08/09/2012 [facility] Chadwick 10/325 oral tablet 1 tab, PO, Q6H, PRN, as needed for pain, Substitution Allowed, Maintenance, TAB PO No Longer Active 08/09/2012 [facility] Carafate 1 g/10 mL oral suspension 1 gm, 10 mL, PO, BID, Substitution Allowed, ELIX PO Active 08/09/2012 [facility] Bentyl 10 mg/5 mL oral syrup PO, QID, PRN, esophageal spasms, Substitution Allowed, ELIX PO Active 08/09/2012 [facility] lovastatin 20 mg oral tablet 20 mg, 1 tab, PO, Daily, 30 tab, Substitution Allowed, TAB PO Active 08/09/2012 [facility] Ativan 2 mg oral tablet 4 mg, 2 tab, PO, Bedtime, Substitution Allowed, TAB PO Active 08/09/2012 [facility] Norvasc 10 mg oral tablet 10 mg, 1 tab, PO, Daily, 30 tab, Substitution Allowed, TAB PO Active 08/09/2012 [facility] Topamax 200 mg, PO, Bedtime, Substitution Allowed, TAB PO Active 08/09/2012 [facility] Cymbalta 30 mg, PO, Bedtime, Substitution Allowed, TAB PO Active 08/09/2012 [facility] Remeron SolTab 45 mg, PO, allow tablet to dissolve on tongue, Substitution Allowed, TABallow tablet to dissolve on tongue PO Active 08/09/2012 [facility] ondansetron 4 mg, 2 mL, Route: IVP, Drug form: INJ, Q8H, Dosing Weight 81.364, kg, PRN Nausea & Vomiting, Start date: 08/09/12 6:33:00, Duration: 30 day, Stop date: 09/08/12 6:32:00 IVP No Longer Active [place] 08/09/2012 [facility] morphine Sulfate 2 mg, 1 mL, Route: IVP, Drug form: INJ, Q3H, Dosing Weight 81.364, kg, PRN Pain Score 4-6, Start date: 08/09/12 6:33:00, Duration: 30 day, Stop date: 09/08/12 6:32:00 IVP No Longer Active Yoselyn 08/09/2012 [facility] Saline Flush 0.9% 5 ml, Route: IVP, Drug Form: INJ, Dosing Weight 81.364, kg, PRN, PRN Line Flush, Start date: 08/09/12 6:33:00, Duration: 30 day, Stop date: 09/08/12 6:32:00 IVP No Longer Active Tarik 08/09/2012 [facility] Sodium Chloride 0.9% IV 1,000 mL 1,000 mL, Rate: 125 ml/hr, Infuse over: 8 hr, Route: IV, Dosing Weight 81.364 kg, Total Volume: 1,000, Start date: 08/09/12 6:33:00, Duration: 30 day, Stop date: 09/08/12 6:32:00 IV No Longer Active [facility] 08/09/2012 [facility] morphine Sulfate 4 mg, Route: IVP, Drug form: INJ, ONCE, Dosing Weight 81.364, kg, Priority: STAT, Start date: 08/09/12 4:19:00, Stop date: 08/09/12 4:19:00 IVP No Longer Active Abad 08/09/2012 [facility] Sodium Chloride 0.9% (titrate) 250 mL 250 mL, Rate: Screen Machine Operator for use with blood product administration., Dosing Weight 81.364, kg, Route: IV, Total Volume: 250, Priority: Routine, Duration: 12 hr, Stop date: 08/09/12 15:42:00, Replace Every: 24 hr IV No Longer Active Abad 08/09/2012 [facility] Toradol 30 mg/mL injectable solution 30 mg, Route: IV, ONCE, Dosing Weight 81.364, kg, Start date: 08/09/12 0:23:00, Stop date: 08/09/12 0:23:00 IV No Longer Active Abad 08/09/2012 [facility] Zofran 4 mg, Route: IVP, Drug form: INJ, ONCE, Dosing Weight 81.364, kg, Priority: STAT, Start date: 08/08/12 23:32:00, Stop date: 08/08/12 23:32:00 IVP No Longer Active Abad 08/09/2012 [facility] morphine Sulfate 4 mg, Route: IVP, Drug form: INJ, ONCE, Dosing Weight 81.364, kg, Priority: STAT, Start date: 08/08/12 23:32:00, Stop date: 08/08/12 23:32:00 IVP No Longer Active Abad 08/09/2012 [facility] Saline Flush not defined Intravenous Active 0.9 % Intravenous Najam Talita Najam B-12-SL 1 tablet under the tongue and allow to dissolve Sublingual Active 1000 MCG Sublingual once a week Najam Talita Najam Remeron 1 tablet before bedtime in the evening Orally Active 45 MG Orally Once a day Najam Talita Najam [place]wick 1 tablet as needed Orally Active 10-325 MG Orally every 6 hrs Najam Talita Najam Zofran ODT not defined Orally Active 8 MG Orally Najam Talita Najam Lovastatin 1 tablet with a meal Orally Active 20 MG Orally Once a day Najam Talita Najam Bentyl 1 capsule Orally Active 10 MG Orally as needed Najam Talita Najam Topamax 4 tablets daily Orally Active 50 MG Orally Once a day Najam Talita Najam Norvasc 1 tablet Orally Active 10 MG Orally Once a day Najam Talita Najam Diovan 1 tablet Orally Active 80 MG Orally Once a day Najam Talita Najam Ativan 1 tablet at bedtime as needed Orally Active 2 MG Orally Najam Talita Najam Cymbalta 2 capsules Orally Active 30 MG Orally Twice a day Najam Talita Najam Bentyl 1 capsule Orally Active 10 MG Orally as needed Najam Talita Najam Remeron 1 tablet before bedtime in the evening Orally Active 45 MG Orally Once a day Najam Talita Najam Saline Flush not defined Intravenous Active 0.9 % Intravenous Najam Talita Najam Topamax 4 tablets daily Orally Active 50 MG Orally Once a day Najam Talita Najam Ativan 1 tablet at bedtime as needed Orally Active 2 MG Orally Najam Talita Najam Norvasc 1 tablet Orally Active 10 MG Orally Once a day Najam Talita Najam Diovan 1 tablet Orally Active 80 MG Orally Once a day Najam Talita Najam Plaquenil 1.5 tabs Orally Active 200 MG Orally Once a day Najam Talita Najam Zofran ODT not defined Orally Active 8 MG Orally Najam Talita Najam B-12-SL 1 tablet under the tongue and allow to dissolve Sublingual Active 1000 MCG Sublingual once a week Najam Talita Najam Cymbalta 4 capsules Orally Active 30 MG Orally Najam Talita Najam Lovastatin 1 tablet with a meal Orally Active 20 MG Orally Once a day Najam Talita Najam Chadwick 1 tablet as needed Orally Active 10-325 MG Orally every 6 hrs Najam Talita Najam Macrobid 1 capsule with food Orally Active 100 MG Orally every 12 hrs Najam Talita Najam Tegretol 1 tablet Orally Active 200 MG Orally Twice a day [place] PredniSONE 1 tablet Orally Active 20 mg Orally Once a day [place] Plaquenil 1.5 tabs Orally Active 200 MG Orally Once a day [place] Amlodipine Besylate (Norvasc) 5 Mg Tab Daily Active [facility] Aspirin 81 Mg Tab.chew Daily Active [facility] Carbamazepine 200 Mg Tablet Twice A Day Active [facility] Cyclobenzaprine Hcl (Flexeril) 5 Mg Tablet As Needed Active TAKE ONE TABLET TWICE DAILY NEEDED [facility] Duloxetine Hcl (Cymbalta) 30 Mg Capsule. Daily Active [facility] Espic Every 4 Hours as needed for Headache Active [facility] Hydroxychloroquine Sulfate 200 Mg Tablet Daily Active [facility] Losartan Potassium 25 Mg Tablet Twice A Day Active [facility] Lovastatin 20 Mg Tablet Daily Active [facility] Mirtazapine 15 Mg Tab Bedtime Active [facility] Montelukast Sodium 10 Mg Tablet Daily Active [facility] Albuterol Sulfate (Proventil Hfa) 6.7 Gm Hfa.aer.ad Active [facility] Amlodipine Besylate (Norvasc) 10 Mg Tablet Active [facility] Aspirin (Aspir 81) 81 Mg Tablet. Active [facility] Cefuroxime Axetil (Cefuroxime) 250 Mg Tablet Twice A Day Active [facility] Cyanocobalamin (Vitamin B-12) (B-12) 500 Mcg Tablet Active [facility] Cyclobenzaprine Hcl (Flexeril) 10 Mg Tablet Active [facility] Dicyclomine Hcl (Bentyl) 10 Mg/5 Ml Syrup Active [facility] Ertapenem Sodium (Invanz) 1 Gm Vial Active [facility] Fexofenadine Hcl (Pepper) 60 Mg Tablet Active [facility] Fluconazole (Diflucan) 100 Mg Tablet Daily Active [facility] Hydrocodone Bit/Acetaminophen (Vicodin Es Tablet) 1 Each Tablet Active [facility] Hydroxychloroquine Sulfate (Plaquenil) 200 Mg Tab Daily Active [facility] Iron Active [facility] Lorazepam (Ativan) 2 Mg Tablet As Needed for Anxiety Active [facility] Losartan Potassium 25 Mg Tablet Twice A Day Active [facility] Mirtazapine (Remeron) 45 Mg Tab.rapdis Qhs Active [facility] Mirtazapine (Remeron) 45 Mg Tablet Bedtime Active [facility] Normal Saline Active [facility] Ondansetron Hcl (Zofran) 4 Mg Tablet Active [facility] Promethazine Hcl (Phenergan) 25 Mg Tablet Active [facility] Sucralfate (Carafate) 1 Gm/10 Ml Oral.susp Twice A Day Active [facility] Tpn Daily Active [facility] Valsartan (Diovan) 80 Mg Tablet Four Times Daily Active [facility] Allergies, Adverse Reactions, Alerts Substance Category Reaction Severity Reaction type Status Date Reported Comments Source Loperamide Unknown Allergy to Substance Active 10/31/2010 [facility] CIPRO Drug allergy CIPRO 01/24/2014 [facility] CODEINE Drug allergy CODEINE 01/24/2014 [facility] DEMEROL Drug allergy DEMEROL 01/24/2014 [facility] DEXAMETH Drug allergy DEXAMETH 01/24/2014 [facility] PHOSPHATE Drug allergy PHOSPHATE 01/24/2014 [facility] IMITREX Drug allergy IMITREX 01/24/2014 [facility] KEFLEX Drug allergy KEFLEX 01/24/2014 [facility] IODINE Drug allergy IODINE 01/24/2014 [facility] PENICILLIN Drug allergy PENICILLIN 01/24/2014 [facility] SULFA Drug allergy SULFA 01/24/2014 [facility] TALWIN Drug allergy TALWIN 01/24/2014 [facility] cephalexin<sup>1</sup> Assertion Drug allergy Active 01/24/2014 Data migrated from [employer] on 06/08/14. Originally documented as [facility] ciprofloxacin<sup>2</sup> Assertion Drug allergy Active 01/24/2014 Data migrated from [employer] on 06/08/14. Originally documented as CIPRO. [facility] loperamide<sup>3</sup> Assertion Drug allergy Active 01/24/2014 Data migrated from [employer] on 06/08/14. Originally documented as IMMODIUM. [facility] meperidine<sup>4</sup> Assertion Drug allergy Active 01/24/2014 Data migrated from [employer] on 06/08/14. Originally documented as DEMEROL. [facility] pentazocine<sup>5</sup> Assertion Drug allergy Active 01/24/2014 Data migrated from [employer] on 06/08/14. Originally documented as TALWIN. [facility] SUMAtriptan<sup>6</sup> Assertion Drug allergy Active 01/24/2014 Data migrated from [employer] on 06/08/14. Originally documented as IMITREX. [facility] penicillins<sup>1</sup> Assertion Drug allergy Active 01/24/2014 Data migrated from [employer] on 09/07/14. Originally documented as PENICILLIN. [facility] sulfa drugs<sup>2</sup> Assertion Drug allergy Active 01/24/2014 Data migrated from [employer] on 09/07/14. Originally documented as SULFA. [facility] ciprofloxacin<sup>3</sup> Assertion Drug allergy Active 01/24/2014 Data migrated from [employer] on 06/08/14. Originally documented as CIPRO. [facility] codeine<sup>4</sup> Assertion Drug allergy Active 01/24/2014 Data migrated from [employer] on 04/11/15. Originally documented as CODEINE. [facility] meperidine<sup>5</sup> Assertion Drug allergy Active 01/24/2014 Data migrated from [employer] on 06/08/14. Originally documented as DEMEROL. [facility] cephalexin<sup>6</sup> Assertion Drug allergy Active 01/24/2014 Data migrated from [employer] on 06/08/14. Originally documented as KEFLEX. [facility] loperamide<sup>7</sup> Assertion Drug allergy Active 01/24/2014 Data migrated from [employer] on 06/08/14. Originally documented as IMMODIUM. [facility] pentazocine<sup>8</sup> Assertion Drug allergy Active 01/24/2014 Data migrated from [employer] on 06/08/14. [facility]<sup>9</sup> Assertion Drug allergy Active 01/24/2014 Data migrated from [employer] on 06/08/14. [facility] iodine<sup>3</sup> Assertion Drug allergy Active 01/24/2014 3Data migrated from [employer] on 06/08/14. Originally documented as IODINE. [facility] loperamide<sup>4</sup> Assertion Drug allergy Active 01/24/2014 4Data migrated from [employer] on 06/08/14. Originally documented as IMMODIUM. [facility] pentazocine<sup>6</sup> Assertion Drug allergy Active 01/24/2014 Data migrated from [employer] on 06/08/14. Originally documented as TALWIN. [facility] SUMAtriptan<sup>7</sup> Assertion Drug allergy Active 01/24/2014 7Data migrated from [employer] on 06/08/14. Originally documented as IMITREX. [facility] penicillins<sup>5</sup> Assertion Drug allergy Active 01/24/2014 Data migrated from [employer] on 09/07/14. Originally documented as PENICILLIN. [facility] sulfa drugs<sup>7</sup> Assertion Drug allergy Active 01/24/2014 Data migrated from [employer] on 09/07/14. [facility] SUMAtriptan<sup>8</sup> Assertion Drug allergy Active 01/24/2014 Data migrated from [employer] on 06/08/14. Originally documented as IMITREX. [facility] IMMODIUM Unknown Allergy to Substance Active 05/17/2017 [facility] meperidine HCl Unknown Allergy to Substance Active 05/17/2017 [facility] Pentazocine Lactate Unknown Allergy to Substance Active 05/17/2017 [facility] ciprofloxacin HCl Unknown Allergy to Substance Active 05/17/2017 [facility] sumatriptan succinate Unknown Allergy to Substance Active 05/17/2017 [facility] Cephalexin Monohydrate Unknown Allergy to Substance Active 05/17/2017 [facility] Sulfa (Sulfonamide Antibiotics) Unknown Allergy to Substance Active 05/17/2017 [facility] Nalidixic acid Unknown Allergy to Substance Active 05/17/2017 [facility] Benzoin rash Severe Allergy to Substance Active 10/26/2017 [facility] Penicillin Adverse Reaction Info Not Available Adverse Reaction Active 11/23/2017 [facility] Naracquel Codeine ITCHING Unknown Allergy to Substance Active 05/20/2018 [facility] Cephalexin ITCHING Mild Allergy to Substance Active 05/20/2018 [facility] Sulfamethoxazole ITCHING Mild Allergy to Substance Active 05/20/2018 [facility] Ciprofloxacin ITCHING Unknown Allergy to Substance Active 05/20/2018 [facility] Sumatriptan ITCHING Unknown Allergy to Substance Active 05/20/2018 [facility] Guanfacine COUGH Unknown Allergy to Substance Active 05/20/2018 [facility] Meperidine ITCHING Unknown Allergy to Substance Active 05/20/2018 [facility] Imitrex Adverse Reaction Info Not Available Adverse Reaction Active 08/18/2018 [facility] Keflex Adverse Reaction Info Not Available Adverse Reaction Active 08/18/2018 [facility] Naracquel Iodine Adverse Reaction Info Not Available Adverse Reaction Active 08/18/2018 [facility] Narociom Dexamethasone Adverse Reaction Info Not Available Adverse Reaction Active 08/18/2018 [facility]om Demerol Adverse Reaction Info Not Available Adverse Reaction Active 08/18/2018 [facility] Cipro Adverse Reaction Info Not Available Adverse Reaction Active 08/18/2018 [facility] Naracquel immodium Adverse Reaction Info Not Available Adverse Reaction Active 08/18/2018 [facility] sulfa Adverse Reaction Info Not Available Adverse Reaction Active 08/18/2018 [facility] Taladine Adverse Reaction Info Not Available Adverse Reaction Active 08/18/2018 [facility] Raymond dexamethphosphate Adverse Reaction Info Not Available Adverse Reaction Active 08/18/2018 [facility] Raymond codine Adverse Reaction Info Not Available Adverse Reaction Active 08/18/2018 [facility] ciprofloxacin Assertion Drug allergy Active [facility] codeine Assertion Propensity to adverse reactions to substance Active [facility] Demerol HCl Assertion Propensity to adverse reactions to substance Active [facility] Dexamethasone Sodium Phosphate Assertion Propensity to adverse reactions to substance Active [facility] Imodium A-D Assertion Propensity to adverse reactions to substance Active [facility] iodine Assertion Propensity to adverse reactions to substance Active [facility] penicillins Assertion Propensity to adverse reactions to substance Active [facility] sulfa drugs Assertion Propensity to adverse reactions to substance Active [facility] Talwin Assertion Propensity to adverse reactions to substance Active [facility] benzoin topical tincture Assertion Drug allergy Active [facility] contrast media (iodine-based) Assertion Drug allergy Active [facility] iodine topical Assertion Drug allergy Active [facility] Reglan Assertion Drug allergy Active [facility] Immunizations Immunization Date Given Site Status Last Updated Comments Source influenza virus vaccine, inactivated 04/22/2013 Right deltoid completed [facility] pneumococcal 23-valent vaccine 04/22/[address] [facility] influenza virus vaccine, inactivated 04/21/2013 Not Given [facility]chen[facility] Results Order Name Results Value Reference Range Date Interpretation Comments Source Blood leukocytes automated count (number/volume) 6.82 4.8 - 10.8 05/21/2018 [facility] Blood erythrocytes automated count (number/volume) 4.13 3.6 - 5.1 05/21/2018 [facility] Blood hemoglobin measurement (moles/volume) 9.9 12.0 - 16.0 05/21/2018 [facility] Automated blood hematocrit (volume fraction) 32.7 34.2 - 44.1 05/21/2018 [facility] Automated erythrocyte mean corpuscular volume 79.2 81 - 99 05/21/2018 [facility] Automated erythrocyte mean corpuscular hemoglobin (mass per erythrocyte) 24.0 28 - 32 05/21/2018 [facility] Automated erythrocyte mean corpuscular hemoglobin concentration measurement (mass/volume) 30.3 31 - 35 05/21/2018 [facility] RDW BldCo-Rto 16.4 11.7 - 14.4 05/21/2018 [facility] Automated blood platelet count (count/volume) 393 140 - 360 05/21/2018 [facility] Automated blood segmented neutrophil count as percentage of total leukocytes 59.7 38.7 - 80.0 05/21/2018 [facility] Automated blood lymphocyte count as percentage ot total leukocytes 22.0 18.0 - 39.1 05/21/2018 [facility] Automated blood monocyte count as percentage of total leukocytes 7.9 4.4 - 11.3 05/21/2018 [facility] Automated blood eosinophil count as percentage of total leukocytes 9.8 0.0 - 6.0 05/21/2018 [facility] Automated blood basophil count as percentage of total leukocytes 0.3 0.0 - 1.0 05/21/2018 [facility] IM GRANULOCYTES % 0.3 0.0 - 1.0 05/21/2018 [facility] Automated blood neutrophil count 4.1 2.1 - 6.9 05/21/2018 [facility] Blood lymphocytes count (number/volume) 1.5 1.0 - 3.2 05/21/2018 [facility] Blood monocytes automated count (number/volume) 0.5 0.2 - 0.8 05/21/2018 [facility] Automated blood eosinophil count 0.7 0.0 - 0.4 05/21/2018 [facility] Automated blood basophil count (count/volume) 0.0 0.0 - 0.1 05/21/2018 [facility] Absolute Immature Granulocyte (auto 0.02 0 - 0.1 05/21/2018 [facility] Serum or plasma sodium measurement (moles/volume) 139 136 - 145 05/21/2018 [facility] Serum or plasma potassium measurement (moles/volume) 4.0 3.5 - 5.1 05/21/2018 [facility] Serum or plasma chloride measurement (moles/volume) 106 98 - 107 05/21/2018 [facility] Serum or plasma carbon dioxide, total measurement (moles/volume) 26 22 - 29 05/21/2018 [facility] Serum or plasma anion gap 11.0 8 - 16 05/21/2018 [facility] Serum or plasma urea nitrogen measurement (mass/volume) 15 7 - 26 05/21/2018 [facility] Serum or plasma creatinine measurement (mass/volume) 0.69 0.57 - 1.11 05/21/2018 [facility] Serum or plasma urea nitrogen/creatinine mass ratio 22 6 - 25 05/21/2018 [facility] Estimated glomerular filtration rate (GFR) determination > 60 60 05/21/2018 [facility] Glucose measurement 93 74 - 118 05/21/2018 [facility] Serum or plasma calcium measurement (mass/volume) 8.6 8.4 - 10.2 05/21/2018 [facility] Serum or plasma magnesium measurement (mass/volume) 2.2 1.3 - 2.1 05/21/2018 [facility] Serum or plasma total bilirubin measurement (mass/volume) 0.2 0.2 - 1.2 05/21/2018 [facility] Aspartate Amino Transf (AST/SGOT) 34 5 - 34 05/21/2018 [facility] Serum or plasma alanine aminotransferase measurement (enzymatic activity/volume) 22 0 - 55 05/21/2018 [facility] Serum or plasma protein measurement (mass/volume) 6.3 6.5 - 8.1 05/21/2018 [facility] Serum or plasma albumin measurement (mass/volume) 2.4 3.5 - 5.0 05/21/2018 [facility] Plasma globulin measurement (mass/volume) 3.9 2.3 - 3.5 05/21/2018 [facility] Serum or plasma albumin/globulin mass ratio 0.6 0.8 - 2.0 05/21/2018 [facility] Serum or plasma alkaline phosphatase measurement (enzymatic activity/volume) 207 40 - 150 05/21/2018 [facility] Urine color determination YELLOW YELLOW 05/21/2018 [facility] Urine clarity CLEAR CLEAR 05/21/2018 [facility] Specific gravity of Urine by Test strip 1.025 1.010 - 1.025 05/21/2018 [facility] Urine pH measurement by automated test strip 6 5 - 7 05/21/2018 [facility] Urine leukocyte esterase detection by dipstick NEGATIVE NEGATIVE 05/21/2018 [facility] Urine nitrite detection NEGATIVE NEGATIVE 05/21/2018 [facility] Urine protein measurement by test strip (mass/volume) 1+ NEGATIVE 05/21/2018 [facility] Urine glucose detection NEGATIVE NEGATIVE 05/21/2018 [facility] Urine ketones detection by automated test strip NEGATIVE NEGATIVE 05/21/2018 [facility] Urine urobilinogen measurement by test strip (mass/volume) 0.2 0.2 - 1 05/21/2018 [facility] Urine total bilirubin measurement (mass/volume) NEGATIVE NEGATIVE 05/21/2018 [facility] Urine erythrocytes detection NEGATIVE NEGATIVE 05/21/2018 [facility] Automated urine sediment leukocyte count by microscopy (number/high power field) 0-5 0 - 5 05/21/2018 [facility] Erythrocytes detection in urine sediment by light microscopy 0-5 0 - 5 05/21/2018 [facility] Bacteria detection in urine sediment by light microscopy NONE NONE 05/21/2018 [facility] Epithelial cells detection in urine sediment by light microscopy MODERATE NONE 05/21/2018 [facility] Blood culture NO GROWTH AFTER 48 HOURS 05/20/2018 [facility] Erythrocyte sedimentation rate by Westergren method 62 0 - 20 05/20/2018 [facility] Serum or plasma amylase measurement (enzymatic activity/volume) 85 25 - 125 05/20/2018 [facility] Serum or plasma lipase measurement (enzymatic activity/volume) 32 8 - 78 05/20/2018 [facility] Serum or plasma C reactive protein measurement (mass/volume) 21.1 0.0 - 4.9 05/20/2018 [facility] Serum or plasma trough vancomycin level at trough (mass/volume) Serum or plasma trough vancomycin level at trough (mass/volume) 18.4 5.0 - 10.0 11/04/2017 [facility] Estimated glomerular filtration rate (GFR) determination Estimated glomerular filtration rate (GFR) determination >60 60 11/03/2017 [facility] Glucose measurement Glucose measurement 80 74 - 118 11/03/2017 [facility] Serum or plasma anion gap Serum or plasma anion gap 12.8 8 - 16 11/03/2017 [facility] Serum or plasma calcium measurement (mass/volume) Serum or plasma calcium measurement (mass/volume) 8.6 8.4 - 10.2 11/03/2017 [facility] Serum or plasma carbon dioxide, total measurement (moles/volume) Serum or plasma carbon dioxide, total measurement (moles/volume) 29 22 - 29 11/03/2017 [facility] Serum or plasma chloride measurement (moles/volume) Serum or plasma chloride measurement (moles/volume) 104 98 - 107 11/03/2017 [facility] Serum or plasma creatinine measurement (mass/volume) Serum or plasma creatinine measurement (mass/volume) 0.65 0.57 - 1.11 11/03/2017 [facility] Serum or plasma potassium measurement (moles/volume) Serum or plasma potassium measurement (moles/volume) 3.8 3.5 - 5.1 11/03/2017 [facility] Serum or plasma sodium measurement (moles/volume) Serum or plasma sodium measurement (moles/volume) 142 136 - 145 11/03/2017 [facility] Serum or plasma urea nitrogen measurement (mass/volume) Serum or plasma urea nitrogen measurement (mass/volume) 7 7 - 26 11/03/2017 [facility] Serum or plasma urea nitrogen/creatinine mass ratio Serum or plasma urea nitrogen/creatinine mass ratio 11 6 - 25 11/03/2017 [facility] Automated blood basophil count (count/volume) Automated blood basophil count (count/volume) 0.0 0.0 - 0.1 11/01/2017 [facility] Automated blood basophil count as percentage of total leukocytes Automated blood basophil count as percentage of total leukocytes 0.3 0.0 - 1.0 11/01/2017 [facility] Automated blood eosinophil count Automated blood eosinophil count 0.3 0.0 - 0.4 11/01/2017 [facility] Automated blood eosinophil count as percentage of total leukocytes Automated blood eosinophil count as percentage of total leukocytes 6.6 0.0 - 6.0 11/01/2017 [facility] Automated blood hematocrit (volume fraction) Automated blood hematocrit (volume fraction) 26.2 34.2 - 44.1 11/01/2017 [facility] Automated blood lymphocyte count as percentage ot total leukocytes Automated blood lymphocyte count as percentage ot total leukocytes 27.1 18.0 - 39.1 11/01/2017 [facility] Automated blood monocyte count as percentage of total leukocytes Automated blood monocyte count as percentage of total leukocytes 9.6 4.4 - 11.3 11/01/2017 [facility] Automated blood neutrophil count Automated blood neutrophil count 2.1 2.1 - 6.9 11/01/2017 [facility] Automated blood platelet count (count/volume) Automated blood platelet count (count/volume) 358 140 - 360 11/01/2017 [facility] Automated blood segmented neutrophil count as percentage of total leukocytes Automated blood segmented neutrophil count as percentage of total leukocytes 55.9 38.7 - 80.0 11/01/2017 [facility] Automated erythrocyte mean corpuscular hemoglobin (mass per erythrocyte) Automated erythrocyte mean corpuscular hemoglobin (mass per erythrocyte) 27.0 28 - 32 11/01/2017 [facility] Automated erythrocyte mean corpuscular hemoglobin concentration measurement (mass/volume) Automated erythrocyte mean corpuscular hemoglobin concentration measurement (mass/volume) 31.3 31 - 35 11/01/2017 [facility] Automated erythrocyte mean corpuscular volume Automated erythrocyte mean corpuscular volume 86.2 81 - 99 11/01/2017 [facility] Blood erythrocytes automated count (number/volume) Blood erythrocytes automated count (number/volume) 3.04 3.6 - 5.1 11/01/2017 [facility] Blood hemoglobin measurement (moles/volume) Blood hemoglobin measurement (moles/volume) 8.2 12.0 - 16.0 11/01/2017 [facility] Blood leukocytes automated count (number/volume) Blood leukocytes automated count (number/volume) 3.76 4.8 - 10.8 11/01/2017 [facility] Blood lymphocytes count (number/volume) Blood lymphocytes count (number/volume) 1.0 1.0 - 3.2 11/01/2017 [facility] Blood monocytes automated count (number/volume) Blood monocytes automated count (number/volume) 0.4 0.2 - 0.8 11/01/2017 [facility] Plasma globulin measurement (mass/volume) Plasma globulin measurement (mass/volume) 3.1 2.3 - 3.5 11/01/2017 [facility] Serum or plasma alanine aminotransferase measurement (enzymatic activity/volume) Serum or plasma alanine aminotransferase measurement (enzymatic activity/volume) 39 0 - 55 11/01/2017 [facility] Serum or plasma albumin measurement (mass/volume) Serum or plasma albumin measurement (mass/volume) 2.1 3.5 - 5.0 11/01/2017 [facility] Serum or plasma albumin/globulin mass ratio Serum or plasma albumin/globulin mass ratio 0.7 0.8 - 2.0 11/01/2017 [facility] Serum or plasma alkaline phosphatase measurement (enzymatic activity/volume) Serum or plasma alkaline phosphatase measurement (enzymatic activity/volume) 134 40 - 150 11/01/2017 [facility] Serum or plasma magnesium measurement (mass/volume) Serum or plasma magnesium measurement (mass/volume) 1.8 1.3 - 2.1 11/01/2017 [facility] Serum or plasma protein measurement (mass/volume) Serum or plasma protein measurement (mass/volume) 5.2 6.5 - 8.1 11/01/2017 [facility] Serum or plasma total bilirubin measurement (mass/volume) Serum or plasma total bilirubin measurement (mass/volume) 0.1 0.2 - 1.2 11/01/2017 [facility] Red Cell Distribution Width 13.4 11.7 - 14.4 11/01/2017 [facility] IM GRANULOCYTES % 0.5 0.0 - 1.0 11/01/2017 [facility] Absolute Immature Granulocyte (auto 0.02 0 - 0.1 11/01/2017 [facility] Aspartate Amino Transf (AST/SGOT) 42 5 - 34 11/01/2017 [facility] Blood culture Blood culture NO GROWTH AFTER 5 DAYS, FINAL REPORT 10/28/2017 [facility] Serum or plasma C reactive protein measurement (mass/volume) Serum or plasma C reactive protein measurement (mass/volume) 45.9 0.0 - 4.9 10/26/2017 [facility] Bacterial blood culture Bacterial blood culture Organism: STAPHYLOCOCCUS EPIDERMIDIS 10/26/2017 [facility] Erythrocyte sedimentation rate by Westergren method Erythrocyte sedimentation rate by Westergren method 73 0 - 20 10/26/2017 [facility] Automated urine sediment leukocyte count by microscopy (number/high power field) Automated urine sediment leukocyte count by microscopy (number/high power field) <5 0 - 5 10/26/2017 [facility] Bacteria detection in urine sediment by light microscopy Bacteria detection in urine sediment by light microscopy MANY NONE 10/26/2017 [facility] Epithelial cells detection in urine sediment by light microscopy Epithelial cells detection in urine sediment by light microscopy FEW NONE 10/26/2017 [facility] Erythrocytes detection in urine sediment by light microscopy Erythrocytes detection in urine sediment by light microscopy NONE 0 - 5 10/26/2017 [facility] Specific gravity of Urine by Test strip Specific gravity of Urine by Test strip 1.010 1.010 - 1.025 10/26/2017 [facility] Urine clarity Urine clarity SL CLOUDY CLEAR 10/26/2017 [facility] Urine color determination Urine color determination ORANGE YELLOW 10/26/2017 [facility] Urine erythrocytes detection Urine erythrocytes detection NEGATIVE NEGATIVE 10/26/2017 [facility] Urine glucose detection Urine glucose detection 2+ NEGATIVE 10/26/2017 [facility] Urine ketones detection by automated test strip Urine ketones detection by automated test strip TRACE NEGATIVE 10/26/2017 [facility] Urine leukocyte esterase detection by dipstick Urine leukocyte esterase detection by dipstick TRACE NEGATIVE 10/26/2017 [facility] Urine nitrite detection Urine nitrite detection POSITIVE NEGATIVE 10/26/2017 [facility] Urine pH measurement by automated test strip Urine pH measurement by automated test strip 5 5 - 7 10/26/2017 [facility] Urine protein measurement by test strip (mass/volume) Urine protein measurement by test strip (mass/volume) 1+ NEGATIVE 10/26/2017 [facility] Urine total bilirubin measurement (mass/volume) Urine total bilirubin measurement (mass/volume) 1+ NEGATIVE 10/26/2017 [facility] Urine urobilinogen measurement by test strip (mass/volume) Urine urobilinogen measurement by test strip (mass/volume) 8 0.2 - 1 10/26/2017 [facility] CHEM PANEL eGFR 67 03/11/2017 Result Comment: The eGFR is calculated using the [...] from the National Kidney Disease Education Program (NKDEP) which additionally recommends that when the eGFR is used in patients with extremes of body mass index for purposes of drug dosing, the eGFR should be multiplied by the estimated BMI. [facility] CHEM PANEL Calcium Lvl 8.5 8.5 - 10.5 03/11/2017 [facility] CHEM PANEL CO2 27 24 - 32 03/11/2017 [facility] CHEM PANEL Chloride Lvl 109 95 - 109 03/11/2017 [facility] CHEM PANEL Potassium Lvl 3.7 3.5 - 5.1 03/11/2017 [facility] CHEM PANEL Sodium Lvl 141 135 - 145 03/11/2017 [facility] CHEM PANEL Creatinine Lvl 0.94 0.50 - 1.40 03/11/2017 [facility] CHEM PANEL BUN 26 7 - 22 03/11/2017 [facility] CHEM PANEL Glucose Lvl 85 70 - 99 03/11/2017 [facility] CHEM PANEL AGAP 8.7 10.0 - 20.0 03/11/2017 [facility] HEMATOLOGY Hgb 13.7 12.0 - 16.0 03/11/2017 [facility] HEMATOLOGY Hct 41.9 36.0 - 48.0 03/11/2017 [facility] TOXICOLOGY Vanco Tr 18.5 02/22/2017 [facility] TOXICOLOGY Vanco Tr TND 07:30 02/22/2017 [facility] ELECTROLYTES AGAP 11.5 10.0 - 20.0 02/21/2017 [facility] ELECTROLYTES eGFR 90 02/21/2017 Result Comment: The eGFR is calculated using the [...] from the National Kidney Disease Education Program (NKDEP) which additionally recommends that when the eGFR is used in patients with extremes of body mass index for purposes of drug dosing, the eGFR should be multiplied by the estimated BMI. [facility] ELECTROLYTES Potassium Lvl 3.5 3.5 - 5.1 02/21/2017 [facility] ELECTROLYTES Chloride Lvl 111 95 - 109 02/21/2017 [facility] ELECTROLYTES CO2 21 24 - 32 02/21/2017 [facility] ELECTROLYTES Calcium Lvl 8.0 8.5 - 10.5 02/21/2017 [facility] ELECTROLYTES BUN 13 7 - 22 02/21/2017 [facility] ELECTROLYTES Creatinine Lvl 0.74 0.50 - 1.40 02/21/2017 [facility] ELECTROLYTES Sodium Lvl 140 135 - 145 02/21/2017 [facility] ELECTROLYTES Glucose Lvl 93 70 - 99 02/21/2017 [facility] HEMATOLOGY RBC 4.33 4.20 - 5.40 02/21/2017 [facility] HEMATOLOGY WBC 3.9 3.7 - 10.4 02/21/2017 [facility] MCV 80.2 80.0 - 98.0 02/21/2017 [facility] Hct 34.8 36.0 - 48.0 02/21/2017 [facility] Hgb 11.5 12.0 - 16.0 02/21/2017 [facility] MPV 6.6 7.4 - 10.4 02/21/2017 [facility] Platelet 318 133 - 450 02/21/2017 [facility] RDW 15.4 11.5 - 14.5 02/21/2017 [facility] MCHC 33.0 32.0 - 36.0 02/21/2017 [facility] MCH 26.5 27.0 - 31.0 02/21/2017 [facility] CHEM PANEL Magnesium Lvl 2.3 1.8 - 2.4 02/20/2017 [facility] CHEM PANEL eGFR 62 02/20/2017 Result Comment: The eGFR is calculated using the [...] from the National Kidney Disease Education Program (NKDEP) which additionally recommends that when the eGFR is used in patients with extremes of body mass index for purposes of drug dosing, the eGFR should be multiplied by the estimated BMI. [facility] CHEM PANEL AST 26 0 - 37 02/20/2017 [facility] CHEM PANEL Alk Phos 178 39 - 136 02/20/2017 [facility] CHEM PANEL Bili Total 0.3 0.2 - 1.3 02/20/2017 [facility] CHEM PANEL ALT 26 0 - 65 02/20/2017 [facility] CHEM PANEL Calcium Lvl 8.3 8.5 - 10.5 02/20/2017 [facility] CHEM PANEL Albumin Lvl 3.2 3.5 - 5.0 02/20/2017 [facility] CHEM PANEL Total Protein 7.4 6.4 - 8.4 02/20/2017 [facility] CHEM PANEL BUN 23 7 - 22 02/20/2017 [facility] CHEM PANEL Glucose Lvl 88 70 - 99 02/20/2017 [facility] CHEM PANEL Potassium Lvl 3.9 3.5 - 5.1 02/20/2017 [facility] CHEM PANEL Sodium Lvl 138 135 - 145 02/20/2017 [facility] CHEM PANEL CO2 26 24 - 32 02/20/2017 [facility] CHEM PANEL Chloride Lvl 105 95 - 109 02/20/2017 [facility] CHEM PANEL Creatinine Lvl 1.01 0.50 - 1.40 02/20/2017 [facility] CHEM PANEL B/C Ratio 23 6 - 25 02/20/2017 [facility] CHEM PANEL Globulin 4.2 2.7 - 4.2 02/20/2017 [facility] CHEM PANEL AGAP 10.9 10.0 - 20.0 02/20/2017 [facility] CHEM PANEL A/G Ratio 0.8 0.7 - 1.6 02/20/2017 [facility] HEMATOLOGY Eosinophils # 0.1 0.0 - 0.5 02/20/2017 [facility] HEMATOLOGY Monocytes # 0.3 0.0 - 0.8 02/20/2017 [facility] HEMATOLOGY Lymphocytes # 0.5 1.0 - 5.5 02/20/2017 [facility] Segs-Bands # 6.6 1.5 - 8.1 02/20/2017 [facility] HEMATOLOGY Basophils 0.6 0.0 - 1.0 02/20/2017 [facility] Eosinophils 0.9 0.0 - 4.0 02/20/2017 [facility] Monocytes 4.1 2.0 - 12.0 02/20/2017 [facility] Lymphocytes 6.8 20.0 - 40.0 02/20/2017 [facility] Segs 87.6 45.0 - 75.0 02/20/2017 [facility] Platelet 379 133 - 450 02/20/2017 [facility] RDW 14.9 11.5 - 14.5 02/20/2017 [facility] RBC 4.78 4.20 - 5.40 02/20/2017 [facility] WBC 7.6 3.7 - 10.4 02/20/2017 [facility] MCV 80.8 80.0 - 98.0 02/20/2017 [facility] MCHC 33.2 32.0 - 36.0 02/20/2017 [facility] MCH 26.8 27.0 - 31.0 02/20/2017 [facility] Hgb 12.8 12.0 - 16.0 02/20/2017 [facility] Hct 38.6 36.0 - 48.0 02/20/2017 [facility] MPV 6.6 7.4 - 10.4 02/20/2017 [facility] CHEM PANEL eGFR 64 09/22/2014 Result Comment: The eGFR is calculated using the [...] from the National Kidney Disease Education Program (NKDEP) which additionally recommends that when the eGFR is used in patients with extremes of body mass index for purposes of drug dosing, the eGFR should be multiplied by the estimated BMI. [facility] CHEM PANEL CO2 24 24 - 32 09/22/2014 [facility] CHEM PANEL Calcium Lvl 7.8 8.5 - 10.5 09/22/2014 [facility] CHEM PANEL Chloride Lvl 116 95 - 109 09/22/2014 [facility] CHEM PANEL Creatinine Lvl 1.0 0.5 - 1.4 09/22/2014 [facility] CHEM PANEL Potassium Lvl 3.6 3.5 - 5.1 09/22/2014 [facility] CHEM PANEL Glucose Lvl 74 70 - 99 09/22/2014 [facility] CHEM PANEL BUN 10 7 - 22 09/22/2014 [facility] CHEM PANEL Sodium Lvl 138 135 - 145 09/22/2014 [facility] CHEM PANEL AGAP 1.6 10.0 - 20.0 09/22/2014 [facility] HEMATOLOGY Monocytes 7.2 2.0 - 12.0 09/22/2014 [facility] HEMATOLOGY Lymphocytes 25.8 20.0 - 40.0 09/22/2014 [facility] HEMATOLOGY Segs 59.5 45.0 - 75.0 09/22/2014 [facility] HEMATOLOGY Segs-Bands # 2.8 1.5 - 8.1 09/22/2014 [facility] HEMATOLOGY Basophils 2.2 0.0 - 1.0 09/22/2014 [facility] HEMATOLOGY Eosinophils 5.3 0.0 - 4.0 09/22/2014 [facility] HEMATOLOGY Eosinophils # 0.3 0.0 - 0.5 09/22/2014 [facility] HEMATOLOGY Monocytes # 0.3 0.0 - 0.8 09/22/2014 [facility] HEMATOLOGY Lymphocytes # 1.2 1.0 - 5.5 09/22/2014 [facility] HEMATOLOGY Basophils # 0.1 0.0 - 0.2 09/22/2014 [facility] HEMATOLOGY WBC 4.7 3.7 - 10.4 09/22/2014 [facility] HEMATOLOGY Hgb 10.5 12.0 - 16.0 09/22/2014 [facility] HEMATOLOGY MCHC 33.3 32.0 - 36.0 09/22/2014 [facility] HEMATOLOGY RDW 13.7 11.5 - 14.5 09/22/2014 [facility] HEMATOLOGY MCV 93.1 80.0 - 98.0 09/22/2014 [facility] MCH 31.0 27.0 - 31.0 09/22/2014 [facility] Hct 31.5 36.0 - 48.0 09/22/2014 [facility] MPV 8.3 7.4 - 10.4 09/22/2014 [facility] Platelet 261 133 - 450 09/22/2014 [facility] RBC 3.38 4.20 - 5.40 09/22/2014 [facility] ELECTROLYTES AGAP 9.7 10.0 - 20.0 09/20/2014 [facility] ELECTROLYTES eGFR 83 09/20/2014 Result Comment: The eGFR is calculated using the [...] from the National Kidney Disease Education Program (NKDEP) which additionally recommends that when the eGFR is used in patients with extremes of body mass index for purposes of drug dosing, the eGFR should be multiplied by the estimated BMI. [facility] ELECTROLYTES Creatinine Lvl 0.8 0.5 - 1.4 09/20/2014 [facility] ELECTROLYTES CO2 25 24 - 32 09/20/2014 [facility] ELECTROLYTES BUN 10 7 - 22 09/20/2014 [facility] ELECTROLYTES Glucose Lvl 124 70 - 99 09/20/2014 [facility] ELECTROLYTES Calcium Lvl 7.2 8.5 - 10.5 09/20/2014 [facility] ELECTROLYTES Chloride Lvl 110 95 - 109 09/20/2014 [facility] ELECTROLYTES Potassium Lvl 3.7 3.5 - 5.1 09/20/2014 [facility] ELECTROLYTES Sodium Lvl 141 135 - 145 09/20/2014 [facility] Hgb 9.9 12.0 - 16.0 09/20/2014 [facility] RBC 3.26 4.20 - 5.40 09/20/2014 [facility] WBC 5.6 3.7 - 10.4 09/20/2014 [facility] MCH 30.4 27.0 - 31.0 09/20/2014 [facility] HEMATOLOGY MCV 91.6 80.0 - 98.0 09/20/2014 [facility] HEMATOLOGY Hct 29.9 36.0 - 48.0 09/20/2014 [facility] HEMATOLOGY MCHC 33.1 32.0 - 36.0 09/20/2014 [facility] HEMATOLOGY RDW 13.5 11.5 - 14.5 09/20/2014 [facility] Platelet 278 133 - 450 09/20/2014 [facility] HEMATOLOGY MPV 7.8 7.4 - 10.4 09/20/2014 [facility] HEMATOLOGY Eosinophils 1.7 0.0 - 4.0 09/20/2014 [facility] HEMATOLOGY Lymphocytes 10.0 20.0 - 40.0 09/20/2014 [facility] HEMATOLOGY Segs 82.8 45.0 - 75.0 09/20/2014 [facility] HEMATOLOGY Monocytes 5.0 2.0 - 12.0 09/20/2014 [facility] Segs-Bands # 4.6 1.5 - 8.1 09/20/2014 [facility] Basophils 0.5 0.0 - 1.0 09/20/2014 [facility] Lymphocytes # 0.6 1.0 - 5.5 09/20/2014 [facility] Eosinophils # 0.1 0.0 - 0.5 09/20/2014 [facility] Monocytes # 0.3 0.0 - 0.8 09/20/2014 [facility] BLOOD BANK RESULTS Antibody Scrn Negative (09/18/14 8:03 PM) 09/19/2014 [facility] BLOOD BANK RESULTS ABO/Rh O POS 09/19/2014 [facility] CHEM PANEL Calcium Lvl 7.3 8.5 - 10.5 09/19/2014 [facility] CHEM PANEL Glucose Lvl 90 70 - 99 09/19/2014 [facility] CHEM PANEL CO2 26 24 - 32 09/19/2014 [facility] CHEM PANEL Chloride Lvl 110 95 - 109 09/19/2014 [facility] CHEM PANEL Potassium Lvl 4.1 3.5 - 5.1 09/19/2014 [facility] CHEM PANEL Sodium Lvl 142 135 - 145 09/19/2014 [facility] CHEM PANEL Creatinine Lvl 0.9 0.5 - 1.4 09/19/2014 [facility] CHEM PANEL BUN 15 7 - 22 09/19/2014 [facility] CHEM PANEL eGFR 72 09/19/2014 Result Comment: The eGFR is calculated using the [...] from the National Kidney Disease Education Program (NKDEP) which additionally recommends that when the eGFR is used in patients with extremes of body mass index for purposes of drug dosing, the eGFR should be multiplied by the estimated BMI. [facility] CHEM PANEL AGAP 10.1 10.0 - 20.0 09/19/2014 [facility] HEMATOLOGY Hgb 10.3 12.0 - 16.0 09/19/2014 [facility] Hct 30.6 36.0 - 48.0 09/19/2014 [facility] MCV 91.1 80.0 - 98.0 09/19/2014 [facility] WBC 7.0 3.7 - 10.4 09/19/2014 [facility] RBC 3.35 4.20 - 5.40 09/19/2014 [facility] MCH 30.8 27.0 - 31.0 09/19/2014 [facility] Platelet 293 133 - 450 09/19/2014 [facility] MPV 7.9 7.4 - 10.4 09/19/2014 [facility] MCHC 33.8 32.0 - 36.0 09/19/2014 [facility] RDW 13.6 11.5 - 14.5 09/19/2014 [facility] PTT 29.2 22.9 - 35.8 09/19/2014 [facility] PT 13.9 12.0 - 14.7 09/19/2014 [facility] INR 1.07 0.85 - 1.17 09/19/2014 [facility] Segs-Bands # 5.7 1.5 - 8.1 09/19/2014 [facility] Eosinophils # 0.2 0.0 - 0.5 09/19/2014 [facility] Lymphocytes # 0.7 1.0 - 5.5 09/19/2014 [facility] Monocytes # 0.4 0.0 - 0.8 09/19/2014 [facility] HEMATOLOGY Monocytes 6.3 2.0 - 12.0 09/19/2014 [facility] HEMATOLOGY Eosinophils 2.7 0.0 - 4.0 09/19/2014 [facility] HEMATOLOGY Basophils 0.6 0.0 - 1.0 09/19/2014 [facility] Segs 80.9 45.0 - 75.0 09/19/2014 [facility] Lymphocytes 9.5 20.0 - 40.0 09/19/2014 [facility] Hct 31.2 36.0 - 48.0 08/31/2014 [facility] Hgb 10.7 12.0 - 16.0 08/31/2014 [facility] Hgb 10.7 12.0 - 16.0 08/30/2014 [facility] Hct 31.4 36.0 - 48.0 08/30/2014 [facility] CHEM PANEL eGFR 57 08/30/2014 Result Comment: The eGFR is calculated using the [...] from the National Kidney Disease Education Program (NKDEP) which additionally recommends that when the eGFR is used in patients with extremes of body mass index for purposes of drug dosing, the eGFR should be multiplied by the estimated BMI. [facility] CHEM PANEL Creatinine Lvl 1.1 0.5 - 1.4 08/30/2014 [facility] Platelet 245 133 - 450 08/30/2014 [facility] HEMATOLOGY PTT 27.3 22.9 - 35.8 08/30/2014 [facility] HEMATOLOGY PT 12.7 12.0 - 14.7 08/30/2014 [facility] HEMATOLOGY INR 0.95 0.85 - 1.17 08/30/2014 [facility] Hct 34.6 36.0 - 48.0 08/30/2014 [facility] Hgb 11.3 12.0 - 16.0 08/30/2014 [facility] BLOOD BANK RESULTS Antibody Scrn Negative (08/29/14 12:17 PM) 08/29/2014 [facility] BLOOD BANK RESULTS ABO/Rh O POS 08/29/2014 [facility] BLOOD BANK RESULTS ABO/Rh O POS 08/17/2014 [facility] BLOOD BANK RESULTS Antibody Scrn Negative (08/17/14 1:50 PM) 08/17/2014 [facility] CHEM PANEL eGFR 57 08/17/2014 Result Comment: The eGFR is calculated using the [...] from the National Kidney Disease Education Program (NKDEP) which additionally recommends that when the eGFR is used in patients with extremes of body mass index for purposes of drug dosing, the eGFR should be multiplied by the estimated BMI. [facility] CHEM PANEL Albumin Lvl 2.6 3.5 - 5.0 08/17/2014 [facility] CHEM PANEL Chloride Lvl 109 95 - 109 08/17/2014 [facility] CHEM PANEL CO2 22 24 - 32 08/17/2014 [facility] CHEM PANEL Calcium Lvl 8.3 8.5 - 10.5 08/17/2014 [facility] CHEM PANEL Sodium Lvl 139 135 - 145 08/17/2014 [facility] CHEM PANEL Potassium Lvl 4.5 3.5 - 5.1 08/17/2014 [facility] CHEM PANEL Creatinine Lvl 1.1 0.5 - 1.4 08/17/2014 [facility] CHEM PANEL Bili Total 0.2 0.2 - 1.3 08/17/2014 [facility] CHEM PANEL Alk Phos 198 39 - 136 08/17/2014 [facility] CHEM PANEL ALT 27 0 - 65 08/17/2014 [facility] CHEM PANEL AST 26 0 - 37 08/17/2014 [facility] CHEM PANEL BUN 25 7 - 22 08/17/2014 [facility] CHEM PANEL Glucose Lvl 74 70 - 99 08/17/2014 [facility] CHEM PANEL Total Protein 6.1 6.4 - 8.4 08/17/2014 [facility] CHEM PANEL AGAP 12.5 10.0 - 20.0 08/17/2014 [facility] CHEM PANEL A/G Ratio 0.7 0.7 - 1.6 08/17/2014 [facility] CHEM PANEL Globulin 3.5 2.0 - 4.0 08/17/2014 [facility] CHEM PANEL B/C Ratio 23 6 - 25 08/17/2014 [facility] HEMATOLOGY PTT 28.2 22.9 - 35.8 08/17/2014 [facility] HEMATOLOGY INR 0.93 0.85 - 1.17 08/17/2014 [facility] HEMATOLOGY PT 12.4 12.0 - 14.7 08/17/2014 [facility] HEMATOLOGY MCHC 34.1 32.0 - 36.0 08/17/2014 [facility] HEMATOLOGY MCH 31.1 27.0 - 31.0 08/17/2014 [facility] HEMATOLOGY MCV 91.2 80.0 - 98.0 08/17/2014 [facility] HEMATOLOGY MPV 8.4 7.4 - 10.4 08/17/2014 [facility] HEMATOLOGY RDW 13.5 11.5 - 14.5 08/17/2014 [facility] HEMATOLOGY Platelet 282 133 - 450 08/17/2014 [facility] HEMATOLOGY RBC 4.33 4.20 - 5.40 08/17/2014 [facility] HEMATOLOGY WBC 6.4 3.7 - 10.4 08/17/2014 [facility] HEMATOLOGY Monocytes # 0.4 0.0 - 0.8 08/17/2014 [facility] HEMATOLOGY Eosinophils # 0.1 0.0 - 0.5 08/17/2014 [facility] HEMATOLOGY Lymphocytes # 1.6 1.0 - 5.5 08/17/2014 [facility] HEMATOLOGY Segs-Bands # 4.2 1.5 - 8.1 08/17/2014 [facility] HEMATOLOGY Lymphocytes 25.1 20.0 - 40.0 08/17/2014 [facility] HEMATOLOGY Segs 65.8 45.0 - 75.0 08/17/2014 [facility] HEMATOLOGY Eosinophils 1.9 0.0 - 4.0 08/17/2014 [facility] HEMATOLOGY Basophils 0.6 0.0 - 1.0 08/17/2014 [facility] HEMATOLOGY Monocytes 6.6 2.0 - 12.0 08/17/2014 [facility] BLOOD BANK RESULTS RBC product Product available 1 (08/17/14 1:46 PM) 08/17/2014 Result Comment: 08/29/2014 17:20 [id number]
Called to Michelle at 08/29/2014 17:20. [facility] CHEM PANEL Calcium Lvl 7.4 8.5 - 10.5 03/05/2014 [facility] CHEM PANEL Chloride Lvl 110 95 - 109 03/05/2014 [facility] CHEM PANEL Potassium Lvl 3.3 3.5 - 5.1 03/05/2014 [facility] CHEM PANEL Sodium Lvl 143 135 - 145 03/05/2014 [facility] CHEM PANEL eGFR 64 03/05/2014 <sup>3</sup>Result Comment: The eGFR is calculated using the CKD-EPI formula. In most young, healthy individuals the eGFR will be >90 mL/min/1.73m2. The eGFR declines with age. An eGFR of 60-89 may be normal in some populations, particularly the elderly, for whom the CKD-EPI formula has not been extensively validated. Use of the eGFR is not recommended in the following populations:& lt;br/>
Individuals with unstable creatinine concentrations, including patients and those with serious co-morbid conditions.

Patients with extremes in muscle mass or diet.

The data above are obtained from the National Kidney Disease Education Program (NKDEP) which additionally recommends that when the eGFR is used in patients with extremes of body mass index for purposes of drug dosing, the eGFR should be multiplied by the estimated BMI. [facility] CHEM PANEL Glucose Lvl 88 70 - 99 03/05/2014 <sup>6</sup>Interpretive Data: Adult reference range values reflect the clinical guidelines
of the [place] [employer]. [facility] CHEM PANEL BUN 14 7 - 22 03/05/2014 [facility] CHEM PANEL Creatinine Lvl 1.0 0.5 - 1.4 03/05/2014 [facility] CHEM PANEL CO2 28 24 - 32 03/05/2014 [facility] CHEM PANEL AGAP 8.3 10.0 - 20.0 03/05/2014 [facility] HEMATOLOGY Basophils 0.4 0.0 - 1.0 03/05/2014 [facility] HEMATOLOGY Segs-Bands # 4.7 1.5 - 8.1 03/05/2014 [facility] Eosinophils 0.7 0.0 - 4.0 03/05/2014 [facility] Lymphocytes 13.2 20.0 - 40.0 03/05/2014 [facility] HEMATOLOGY Monocytes 9.1 2.0 - 12.0 03/05/2014 [facility] Segs 76.6 45.0 - 75.0 03/05/2014 [facility] Monocytes # 0.6 0.0 - 0.8 03/05/2014 [facility] Lymphocytes # 0.8 1.0 - 5.5 03/05/2014 [facility] MPV 7.0 7.4 - 10.4 03/05/2014 [facility] Hct 29.1 36.0 - 48.0 03/05/2014 [facility] RDW 14.6 11.5 - 14.5 03/05/2014 [facility] Platelet 289 133 - 450 03/05/2014 [facility] [facility] MCH 28.7 27.0 - 31.0 03/05/2014 [facility] MCHC 33.3 32.0 - 36.0 03/05/2014 [facility] Hgb 9.7 12.0 - 16.0 03/05/2014 [facility] RBC 3.37 4.20 - 5.40 03/05/2014 [facility] MCV 86.3 80.0 - 98.0 03/05/2014 [facility] WBC 6.2 3.7 - 10.4 03/05/2014 [facility] ELECTROLYTES AGAP 15.7 10.0 - 20.0 03/04/2014 [facility] ELECTROLYTES Potassium Lvl 3.7 3.5 - 5.1 03/04/2014 [facility] ELECTROLYTES Chloride Lvl 107 95 - 109 03/04/2014 [facility] ELECTROLYTES Sodium Lvl 141 135 - 145 03/04/2014 [facility] ELECTROLYTES eGFR 73 03/04/2014 <sup>4</sup>Result Comment: The eGFR is calculated using the CKD-EPI formula. In most young, healthy individuals the eGFR will be >90 mL/min/1.73m2. The eGFR declines with age. An eGFR of 60-89 may be normal in some populations, particularly the elderly, for whom the CKD-EPI formula has not been extensively validated. Use of the eGFR is not recommended in the following populations:& lt;br/>
Individuals with unstable creatinine concentrations, including patients and those with serious co-morbid conditions.

Patients with extremes in muscle mass or diet.

The data above are obtained from the National Kidney Disease Education Program (NKDEP) which additionally recommends that when the eGFR is used in patients with extremes of body mass index for purposes of drug dosing, the eGFR should be multiplied by the estimated BMI. [facility] ELECTROLYTES Creatinine Lvl 0.9 0.5 - 1.4 03/04/2014 [facility] ELECTROLYTES BUN 16 7 - 22 03/04/2014 [facility] ELECTROLYTES Glucose Lvl 60 70 - 99 03/04/2014 <sup>7</sup>Interpretive Data: Adult reference range values reflect the clinical guidelines
of the [place] [employer]. [facility] ELECTROLYTES CO2 22 24 - 32 03/04/2014 [facility] ELECTROLYTES Calcium Lvl 8.1 8.5 - 10.5 03/04/2014 [facility] Hgb 10.7 12.0 - 16.0 03/04/2014 [facility] Hct 31.7 36.0 - 48.0 03/04/2014 [facility] PTT 32.6 22.9 - 35.8 03/04/2014 <sup>12</sup>Interpretive Data: Heparin Therapeutic Range: 57 - 92 Seconds [facility] PT 15.0 12.0 - 14.7 03/04/2014 [facility] INR 1.17 0.85 - 1.17 03/04/2014 <sup>9</sup>Interpretive Data: RECOMMENDED RANGES FOR PROTIME INR:
2.0-3.0 for most medical and surgical thromboembolic states.
2.5-3.5 for artificial heart valves and recurrent embolism.

INR SHOULD BE USED ONLY FOR PATIENTS ON STABLE ANTICOAGULANT THERAPY. [facility] MPV 7.2 7.4 - 10.4 03/04/2014 [facility] RDW 15.0 11.5 - 14.5 03/04/2014 [facility] Platelet 285 133 - 450 03/04/2014 [facility] MCHC 33.6 32.0 - 36.0 03/04/2014 [facility] MCH 29.3 27.0 - 31.0 03/04/2014 [facility] Hgb 10.7 12.0 - 16.0 03/04/2014 [facility] HEMATOLOGY Hct 31.7 36.0 - 48.0 03/04/2014 [facility] HEMATOLOGY RBC 3.64 4.20 - 5.40 03/04/2014 [facility] HEMATOLOGY MCV 87.2 80.0 - 98.0 03/04/2014 [facility] HEMATOLOGY WBC 10.2 3.7 - 10.4 03/04/2014 [facility] HEMATOLOGY Segs 84.6 45.0 - 75.0 03/04/2014 [facility] HEMATOLOGY Lymphocytes 8.9 20.0 - 40.0 03/04/2014 [facility] HEMATOLOGY Monocytes 6.2 2.0 - 12.0 03/04/2014 [facility] HEMATOLOGY Basophils 0.3 0.0 - 1.0 03/04/2014 [facility] HEMATOLOGY Lymphocytes # 0.9 1.0 - 5.5 03/04/2014 [facility] HEMATOLOGY Monocytes # 0.6 0.0 - 0.8 03/04/2014 [facility] HEMATOLOGY Segs-Bands # 8.6 1.5 - 8.1 03/04/2014 [facility] CHEM PANEL Magnesium Lvl 2.1 1.8 - 2.4 03/03/2014 [facility] ELECTROLYTES AGAP 12.8 10.0 - 20.0 03/03/2014 [facility] ELECTROLYTES Sodium Lvl 136 135 - 145 03/03/2014 [facility] ELECTROLYTES Chloride Lvl 103 95 - 109 03/03/2014 [facility] ELECTROLYTES Potassium Lvl 3.8 3.5 - 5.1 03/03/2014 [facility] ELECTROLYTES Creatinine Lvl 1.1 0.5 - 1.4 03/03/2014 [facility] ELECTROLYTES CO2 24 24 - 32 03/03/2014 [facility] ELECTROLYTES Calcium Lvl 8.2 8.5 - 10.5 03/03/2014 [facility] ELECTROLYTES eGFR 57 03/03/2014 <sup>5</sup>Result Comment: The eGFR is calculated using the CKD-EPI formula. In most young, healthy individuals the eGFR will be >90 mL/min/1.73m2. The eGFR declines with age. An eGFR of 60-89 may be normal in some populations, particularly the elderly, for whom the CKD-EPI formula has not been extensively validated. Use of the eGFR is not recommended in the following populations:& lt;br/>
Individuals with unstable creatinine concentrations, including patients and those with serious co-morbid conditions.

Patients with extremes in muscle mass or diet.

The data above are obtained from the National Kidney Disease Education Program (NKDEP) which additionally recommends that when the eGFR is used in patients with extremes of body mass index for purposes of drug dosing, the eGFR should be multiplied by the estimated BMI. [facility] ELECTROLYTES Glucose Lvl 90 70 - 99 03/03/2014 <sup>8</sup>Interpretive Data: Adult reference range values reflect the clinical guidelines
of the [place] [employer]. [facility] ELECTROLYTES BUN 14 7 - 22 03/03/2014 [facility] HEMATOLOGY MPV 7.5 7.4 - 10.4 03/03/2014 [facility] HEMATOLOGY Platelet 266 133 - 450 03/03/2014 [facility] RDW 14.7 11.5 - 14.5 03/03/2014 [facility] MCHC 32.6 32.0 - 36.0 03/03/2014 [facility] RBC 4.16 4.20 - 5.40 03/03/2014 [facility] MCH 28.2 27.0 - 31.0 03/03/2014 [facility] HEMATOLOGY MCV 86.5 80.0 - 98.0 03/03/2014 [facility] WBC 13.0 3.7 - 10.4 03/03/2014 [facility] Lymphocytes 5.2 20.0 - 40.0 03/03/2014 [facility] RBC Morph Normal (03/03/14 6:10 AM) 03/03/2014 [facility] Plt Morph Normal (03/03/14 6:10 AM) 03/03/2014 [facility] Lymphocytes # 0.7 1.0 - 5.5 03/03/2014 [facility] Monocytes # 0.8 0.0 - 0.8 03/03/2014 [facility] Eosinophils 0.1 0.0 - 4.0 03/03/2014 [facility] Segs 88.6 45.0 - 75.0 03/03/2014 [facility] Segs-Bands # 11.5 1.5 - 8.1 03/03/2014 [facility] Monocytes 6.1 2.0 - 12.0 03/03/2014 [facility] BLOOD BANK RESULTS ABO/Rh O POS 03/02/2014 [facility] BLOOD BANK RESULTS Antibody Scrn Negative (03/02/14 10:52 AM) 03/02/2014 [facility] BLOOD BANK RESULTS RBC product Product available 2 (03/02/14 7:11 AM) 03/02/2014 <sup>2</sup>Result Comment: 03/02/2014 12:54 ELLE
Called to Cydney at 03/02/2014 12:54. [facility] HEMATOLOGY PT 13.3 12.0 - 14.7 03/01/2014 [facility] INR 1.01 0.85 - 1.17 03/01/2014 <sup>10</sup>Interpretive Data: RECOMMENDED RANGES FOR PROTIME INR:
2.0-3.0 for most medical and surgical thromboembolic states.
2.5-3.5 for artificial heart valves and recurrent embolism.

INR SHOULD BE USED ONLY FOR PATIENTS ON STABLE ANTICOAGULANT THERAPY. [facility] PTT 27.5 22.9 - 35.8 03/01/2014 <sup>13</sup>Interpretive Data: Heparin Therapeutic Range: 57 - 92 Seconds [facility] INR 0.87 0.85 - 1.17 02/28/2014 <sup>11</sup>Interpretive Data: RECOMMENDED RANGES FOR PROTIME INR:
2.0-3.0 for most medical and surgical thromboembolic states.
2.5-3.5 for artificial heart valves and recurrent embolism.

INR SHOULD BE USED ONLY FOR PATIENTS ON STABLE ANTICOAGULANT THERAPY. [facility] PT 11.8 12.0 - 14.7 02/28/2014 [facility] PTT 27.1 22.9 - 35.8 02/28/2014 <sup>14</sup>Interpretive Data: Heparin Therapeutic Range: 57 - 92 Seconds [facility] BLOOD BANK RESULTS AB Int Anti-E 02/24/2014 [facility] BLOOD BANK RESULTS ABO/Rh O POS 02/24/2014 [facility] BLOOD BANK RESULTS Antibody Scrn Positive 1 (02/24/14 10:55 AM) 02/24/2014 <sup>1</sup>Result Comment: 02/24/2014 14:45 [id number]
"Significant Findings called to Og Altamirano at 02/24/2014 14:44 by ttn. Read Back OK." [facility] BLOOD [facility] RESULTS RBC product Product available (1/16/15 10:31 AM) 02/24/2014 [facility] CHEM PANEL Magnesium Lvl 2.4 1.8 - 2.4 04/23/2013 [facility] ELECTROLYTES AGAP 10.4 10.0 - 20.0 04/23/2013 [facility] ELECTROLYTES eGFR 73 04/23/2013 <sup>2</sup>Result Comment: The eGFR is calculated using the CKD-EPI formula. In most young, healthy individuals the eGFR will be >90 mL/min/1.73m2. The eGFR declines with age. An eGFR of 60-89 may be normal in some populations, particularly the elderly, for whom the CKD-EPI formula has not been extensively validated. Use of the eGFR is not recommended in the following populations:& lt;br/>
Individuals with unstable creatinine concentrations, including patients and those with serious co-morbid conditions.

Patients with extremes in muscle mass or diet.

The data above are obtained from the National Kidney Disease Education Program (NKDEP) which additionally recommends that when the eGFR is used in patients with extremes of body mass index for purposes of drug dosing, the eGFR should be multiplied by the estimated BMI. [facility] ELECTROLYTES CO2 25 24 - 32 04/23/2013 [facility] ELECTROLYTES Potassium Lvl 4.4 3.5 - 5.1 04/23/2013 [facility] ELECTROLYTES Calcium Lvl 8.8 8.5 - 10.5 04/23/2013 [facility] ELECTROLYTES Creatinine Lvl 0.9 0.5 - 1.4 04/23/2013 [facility] ELECTROLYTES Sodium Lvl 138 135 - 145 04/23/2013 [facility] ELECTROLYTES Chloride Lvl 107 95 - 109 04/23/2013 [facility] ELECTROLYTES Glucose Lvl 123 70 - 99 04/23/2013 <sup>5</sup>Interpretive Data: Adult reference range values reflect the clinical guidelines
of the [place] [employer]. [facility] ELECTROLYTES BUN 10 7 - 22 04/23/2013 [facility] HEMATOLOGY Segs-Bands # 5.6 1.5 - 8.1 04/23/2013 [facility] HEMATOLOGY Lymphocytes # 1.1 1.0 - 5.5 04/23/2013 [facility] HEMATOLOGY Eosinophils 2.9 0.0 - 4.0 04/23/2013 [facility] HEMATOLOGY Monocytes 8.0 2.0 - 12.0 04/23/2013 [facility] HEMATOLOGY Basophils 0.4 0.0 - 1.0 04/23/2013 [facility] HEMATOLOGY Monocytes # 0.6 0.0 - 0.8 04/23/2013 [facility] HEMATOLOGY Basophils # 0.0 0.0 - 0.2 04/23/2013 [facility] HEMATOLOGY Eosinophils # 0.2 0.0 - 0.5 04/23/2013 [facility] HEMATOLOGY Segs 74.5 45.0 - 75.0 04/23/2013 [facility] HEMATOLOGY Lymphocytes 14.2 20.0 - 40.0 04/23/2013 [facility] HEMATOLOGY Platelet 206 133 - 450 04/23/2013 [facility] HEMATOLOGY RDW 14.0 11.5 - 14.5 04/23/2013 [facility] HEMATOLOGY MCH 29.4 27.0 - 31.0 04/23/2013 [facility] HEMATOLOGY MCHC 34.0 32.0 - 36.0 04/23/2013 [facility] HEMATOLOGY MPV 7.9 7.4 - 10.4 04/23/2013 [facility] HEMATOLOGY MCV 86.5 81.0 - 99.0 04/23/2013 [facility] HEMATOLOGY Hct 34.3 36.0 - 48.0 04/23/2013 [facility] HEMATOLOGY WBC X 10x3 7.6 3.7 - 10.4 04/23/2013 [facility] HEMATOLOGY RBC X 10x6 3.96 4.20 - 5.40 04/23/2013 [facility] HEMATOLOGY Hgb 11.7 12.0 - 16.0 04/23/2013 [facility] HEMATOLOGY WBC X 10x3 8.7 3.7 - 10.4 04/22/2013 [facility] HEMATOLOGY Hct 38.1 36.0 - 48.0 04/22/2013 [facility] HEMATOLOGY MCV 86.3 81.0 - 99.0 04/22/2013 [facility] HEMATOLOGY MCH 28.7 27.0 - 31.0 04/22/2013 [facility] HEMATOLOGY RBC X 10x6 4.41 4.20 - 5.40 04/22/2013 [facility] HEMATOLOGY Hgb 12.6 12.0 - 16.0 04/22/2013 [facility] HEMATOLOGY MCHC 33.2 32.0 - 36.0 04/22/2013 [facility] HEMATOLOGY RDW 13.8 11.5 - 14.5 04/22/2013 [facility] HEMATOLOGY Platelet 234 133 - 450 04/22/2013 [facility] HEMATOLOGY MPV 8.1 7.4 - 10.4 04/22/2013 [facility] HEMATOLOGY Lymphocytes # 1.0 1.0 - 5.5 04/22/2013 [facility] HEMATOLOGY Monocytes # 0.6 0.0 - 0.8 04/22/2013 [facility] HEMATOLOGY Basophils # 0.1 0.0 - 0.2 04/22/2013 [facility] HEMATOLOGY Eosinophils # 0.2 0.0 - 0.5 04/22/2013 [facility] HEMATOLOGY Lymphocytes 12.0 20.0 - 40.0 04/22/2013 [facility] HEMATOLOGY Segs 77.9 45.0 - 75.0 04/22/2013 [facility] HEMATOLOGY Monocytes 6.7 2.0 - 12.0 04/22/2013 [facility] HEMATOLOGY Segs-Bands # 6.8 1.5 - 8.1 04/22/2013 [facility] HEMATOLOGY Eosinophils 2.8 0.0 - 4.0 04/22/2013 [facility] HEMATOLOGY Basophils 0.6 0.0 - 1.0 04/22/2013 [facility] CHEM PANEL Magnesium Lvl 1.8 1.8 - 2.4 04/22/2013 [facility] ELECTROLYTES AGAP 11.5 10.0 - 20.0 04/22/2013 [facility] ELECTROLYTES eGFR 84 04/22/2013 <sup>3</sup>Result Comment: The eGFR is calculated using the CKD-EPI formula. In most young, healthy individuals the eGFR will be >90 mL/min/1.73m2. The eGFR declines with age. An eGFR of 60-89 may be normal in some populations, particularly the elderly, for whom the CKD-EPI formula has not been extensively validated. Use of the eGFR is not recommended in the following populations:& lt;br/>
Individuals with unstable creatinine concentrations, including patients and those with serious co-morbid conditions.

Patients with extremes in muscle mass or diet.

The data above are obtained from the National Kidney Disease Education Program (NKDEP) which additionally recommends that when the eGFR is used in patients with extremes of body mass index for purposes of drug dosing, the eGFR should be multiplied by the estimated BMI. [facility] ELECTROLYTES BUN 10 7 - 22 04/22/2013 [facility] ELECTROLYTES Creatinine Lvl 0.8 0.5 - 1.4 04/22/2013 [facility] ELECTROLYTES Sodium Lvl 141 135 - 145 04/22/2013 [facility] ELECTROLYTES Glucose Lvl 104 70 - 99 04/22/2013 <sup>6</sup>Interpretive Data: Adult reference range values reflect the clinical guidelines
of the [place] [employer]. [facility] ELECTROLYTES Potassium Lvl 3.5 3.5 - 5.1 04/22/2013 [facility] ELECTROLYTES Chloride Lvl 107 95 - 109 04/22/2013 [facility] ELECTROLYTES CO2 26 24 - 32 04/22/2013 [facility] ELECTROLYTES Calcium Lvl 8.5 8.5 - 10.5 04/22/2013 [facility] CHEM PANEL Creatinine Lvl 0.9 0.5 - 1.4 04/22/2013 [facility] CHEM PANEL eGFR 73 04/22/2013 <sup>4</sup>Result Comment: The eGFR is calculated using the CKD-EPI formula. In most young, healthy individuals the eGFR will be >90 mL/min/1.73m2. The eGFR declines with age. An eGFR of 60-89 may be normal in some populations, particularly the elderly, for whom the CKD-EPI formula has not been extensively validated. Use of the eGFR is not recommended in the following populations:& lt;br/>
Individuals with unstable creatinine concentrations, including patients and those with serious co-morbid conditions.

Patients with extremes in muscle mass or diet.

The data above are obtained from the National Kid[employer] Disease Education Program (NKDEP) which additionally recommends that when the eGFR is used in patients with extremes of body mass index for purposes of drug dosing, the eGFR should be multiplied by the estimated BMI. [facility] PROTIME 13.3 12.0 - 14.7 04/22/2013 [facility] INR 1.02 0.85 - 1.17 04/22/2013 <sup>10</sup>Interpretive Data: RECOMMENDED RANGES FOR PROTIME INR:
2.0-3.0 for most medical and surgical thromboembolic states.
2.5-3.5 for artificial heart valves and recurrent embolism.

INR SHOULD BE USED ONLY FOR PATIENTS ON STABLE ANTICOAGULANT THERAPY. [facility] aPTT 23.9 22.9 - 35.8 04/22/2013 <sup>12</sup>Interpretive Data: Heparin Therapeutic Range: 57 - 92 Seconds [facility] HEMATOLOGY Platelet 211 133 - 450 04/22/2013 [facility] BLOOD BANK RESULTS AB Int Anti-E 04/21/2013 [facility] BLOOD BANK RESULTS ABO/Rh O POS 04/21/2013 [facility] BLOOD BANK RESULTS Antibody Scrn Positive 1 (04/20/2013 21:34:00 Radha/[place]) 04/21/2013 <sup>1</sup>Result Comment: 04/20/2013 23:54 [id number]
"Significant Findings called to mariana okeffe__at 04/20/2013 23:52__by jw__.Read Back OK." [facility] URINE AND STOOL UA Sq Epi None Seen 04/20/2013 [facility] URINE AND STOOL UA Nitrite Negative (04/20/2013 09:00:00 [facility]/[place]) Negative 04/20/2013 [facility] URINE AND STOOL UA Urobilinogen 2.0 0.1 - 1.0 04/20/2013 [facility] URINE AND STOOL UA Leuk Est Trace *ABN* (04/20/2013 09:00:00 [facility]/[place]) Negative 04/20/2013 [facility] URINE AND STOOL UA RBC 2 0 - 2 04/20/2013 [facility] URINE AND STOOL UA WBC 3 0 - 5 04/20/2013 [facility] URINE AND STOOL UA Bili Small *ABN* (04/20/2013 09:00:00 [facility]/[place]) Negative 04/20/2013 [facility] URINE AND STOOL UA Blood Negative (04/20/2013 09:00:00 [facility]/[place]) Negative 04/20/2013 [facility] URINE AND STOOL UA Glucose Negative mg/dL Negative mg/dL 04/20/2013 [facility] URINE AND STOOL UA Turbidity Clear (04/20/2013 09:00:00 [facility]/[place]) Clear 04/20/2013 [facility] URINE AND STOOL UA Protein Negative mg/dL Negative mg/dL 04/20/2013 [facility] URINE AND STOOL UA Spec Grav 1.030 <=1.030 04/20/2013 [facility] URINE AND STOOL UA pH 5.0 5.0 - 8.0 04/20/2013 [facility] URINE AND STOOL UA Color Yellow *NA* (04/20/2013 09:00:00 [facility]/[place]) Yellow 04/20/2013 [facility] URINE AND STOOL UA Ketones Negative mg/dL Negative mg/dL 04/20/2013 [facility] URINE CHEM U Creatinine 193.8 04/20/2013 <sup>8</sup>Interpretive Data: No established reference ranges. [facility] URINE CHEM U Protein 54.6 04/20/2013 <sup>9</sup>Interpretive Data: No established reference ranges. [facility] URINE CHEM U Prot/Creat 0.3 04/20/2013 [facility] ELECTROLYTES CO2 22 24 - 32 04/20/2013 [facility] ELECTROLYTES BUN 21 7 - 22 04/20/2013 [facility] ELECTROLYTES ASPARTATE TRANSAMINASE 39 0 - 37 04/20/2013 [facility] ELECTROLYTES Glucose Lvl 115 70 - 99 04/20/2013 <sup>7</sup>Interpretive Data: Adult reference range values reflect the clinical guidelines
of the [place] [employer]. [facility] ELECTROLYTES Potassium Lvl 3.4 3.5 - 5.1 04/20/2013 [facility] ELECTROLYTES Sodium Lvl 143 135 - 145 04/20/2013 [facility] ELECTROLYTES Chloride Lvl 113 95 - 109 04/20/2013 [facility] ELECTROLYTES Calcium Lvl 8.4 8.5 - 10.5 04/20/2013 [facility] ELECTROLYTES Total Protein 6.4 6.4 - 8.4 04/20/2013 [facility] ELECTROLYTES Alk Phos 160 39 - 136 04/20/2013 [facility] ELECTROLYTES ALANINE AMINOTRANSFERASE 29 0 - 65 04/20/2013 [facility] ELECTROLYTES Albumin Lvl 3.3 3.5 - 5.0 04/20/2013 [facility] ELECTROLYTES Bili Total 0.2 0.2 - 1.3 04/20/2013 [facility] ELECTROLYTES AGAP 11.4 10.0 - 20.0 04/20/2013 [facility] ELECTROLYTES A/G Ratio 1.1 0.7 - 1.6 04/20/2013 [facility] ELECTROLYTES B/C Ratio 19 6 - 25 04/20/2013 [facility] ELECTROLYTES Globulin 3.1 2.0 - 4.0 04/20/2013 [facility] HEMATOLOGY PROTIME 12.6 12.0 - 14.7 04/20/2013 [facility] HEMATOLOGY INR 0.95 0.85 - 1.17 04/20/2013 <sup>11</sup>Interpretive Data: RECOMMENDED RANGES FOR PROTIME INR:
2.0-3.0 for most medical and surgical thromboembolic states.
2.5-3.5 for artificial heart valves and recurrent embolism.

INR SHOULD BE USED ONLY FOR PATIENTS ON STABLE ANTICOAGULANT THERAPY. [facility] HEMATOLOGY aPTT 27.0 22.9 - 35.8 04/20/2013 <sup>13</sup>Interpretive Data: Heparin Therapeutic Range: 57 - 92 Seconds [facility] HEMATOLOGY RDW 14.2 11.5 - 14.5 04/20/2013 [facility] HEMATOLOGY MCH 29.2 27.0 - 31.0 04/20/2013 [facility] HEMATOLOGY MCHC 33.5 32.0 - 36.0 04/20/2013 [facility] HEMATOLOGY MPV 7.8 7.4 - 10.4 04/20/2013 [facility] HEMATOLOGY WBC X 10x3 6.7 3.7 - 10.4 04/20/2013 [facility] HEMATOLOGY RBC X 10x6 4.14 4.20 - 5.40 04/20/2013 [facility] HEMATOLOGY MCV 87.0 81.0 - 99.0 04/20/2013 [facility] HEMATOLOGY Hgb 12.1 12.0 - 16.0 04/20/2013 [facility] HEMATOLOGY Hct 36.0 36.0 - 48.0 04/20/2013 [facility] HEMATOLOGY Monocytes 5.5 2.0 - 12.0 04/20/2013 [facility] HEMATOLOGY Lymphocytes 14.3 20.0 - 40.0 04/20/2013 [facility] HEMATOLOGY Eosinophils 2.3 0.0 - 4.0 04/20/2013 [facility] HEMATOLOGY Segs 77.6 45.0 - 75.0 04/20/2013 [facility] HEMATOLOGY Basophils # 0.0 0.0 - 0.2 04/20/2013 [facility] HEMATOLOGY Segs-Bands # 5.2 1.5 - 8.1 04/20/2013 [facility] HEMATOLOGY Basophils 0.3 0.0 - 1.0 04/20/2013 [facility] HEMATOLOGY Eosinophils # 0.2 0.0 - 0.5 04/20/2013 [facility] HEMATOLOGY Lymphocytes # 1.0 1.0 - 5.5 04/20/2013 [facility] HEMATOLOGY Monocytes # 0.4 0.0 - 0.8 04/20/2013 [facility] CHEMISTRY AGAP 7.7 10.0 - 20.0 01/18/2013 LOW [facility] CHEMISTRY Calcium Lvl 8.4 8.5 - 10.5 01/18/2013 LOW [facility] CHEMISTRY CO2 25 24 - 32 01/18/2013 Normal [facility] CHEMISTRY Chloride Lvl 116 95 - 109 01/18/2013 HI [facility] CHEMISTRY Creatinine Lvl 1.0 0.5 - 1.4 01/18/2013 Normal [facility] CHEMISTRY BUN 16 7 - 22 01/18/2013 Normal [facility] CHEMISTRY Glucose Lvl 81 70 - 99 01/18/2013 Normal <sup>3</sup>Interpretive Data: Adult reference range values reflect the clinical guidelines
of the [place] [employer]. [facility] CHEMISTRY Sodium Lvl 145 135 - 145 01/18/2013 Normal [facility] CHEMISTRY Potassium Lvl 3.7 3.5 - 5.1 01/18/2013 Normal [facility] CHEMISTRY eGFR 64 01/18/2013 <sup>2</sup>Result Comment: The eGFR is calculated using the CKD-EPI formula. In most young, healthy individuals the eGFR will be >90 mL/min/1.73m2. The eGFR declines with age. An eGFR of 60-89 may be normal in some populations, particularly the elderly, for whom the CKD-EPI formula has not been extensively validated. Use of the eGFR is not recommended in the following populations:& lt;br/>
Individuals with unstable creatinine concentrations, including patients and those with serious co-morbid conditions.

Patients with extremes in muscle mass or diet.

The data above are obtained from the National Kid[employer] Disease Education Program (NKDEP) which additionally recommends that when the eGFR is used in patients with extremes of body mass index for purposes of drug dosing, the eGFR should be multiplied by the estimated BMI. [facility] HEMATOLOGY aPTT 28.5 22.9 - 35.8 01/18/2013 Normal <sup>5</sup>Interpretive Data: Heparin Therapeutic Range: 57 - 92 Seconds [facility] HEMATOLOGY PROTIME 12.9 12.0 - 14.7 01/18/2013 Normal [facility] HEMATOLOGY INR 0.98 0.85 - 1.17 01/18/2013 Normal <sup>4</sup>Interpretive Data: RECOMMENDED RANGES FOR PROTIME INR:
2.0-3.0 for most medical and surgical thromboembolic states.
2.5-3.5 for artificial heart valves and recurrent embolism.

INR SHOULD BE USED ONLY FOR PATIENTS ON STABLE ANTICOAGULANT THERAPY. [facility] BEDSIDE GLUCOSE TESTING Glucose POC 89 70 - 99 01/18/2013 Normal <sup>1</sup>Interpretive Data: Upper Reportable Limit: 200 mg/dL. [facility] HEMATOLOGY Basophils # 0.0 0.0 - 0.2 08/14/2012 Normal [facility] HEMATOLOGY RBC Morph Normal (08/14/2012 03:00:00) 08/14/2012 Normal [facility] HEMATOLOGY Segs 74.0 45.0 - 75.0 08/14/2012 Normal [facility] HEMATOLOGY Plt Morph Normal (08/14/2012 03:00:00) 08/14/2012 Normal [facility] HEMATOLOGY Basophils 0.1 0.0 - 1.0 08/14/2012 Normal [facility] HEMATOLOGY Segs-Bands # 4.3 1.5 - 8.1 08/14/2012 Normal [facility] HEMATOLOGY Lymphocytes # 1.0 1.0 - 5.5 08/14/2012 Normal [facility] HEMATOLOGY Monocytes # 0.3 0.0 - 0.8 08/14/2012 Normal [facility] HEMATOLOGY Eosinophils # 0.1 0.0 - 0.5 08/14/2012 Normal [facility] HEMATOLOGY Lymphocytes 17.6 20.0 - 40.0 08/14/2012 LOW [facility] HEMATOLOGY Monocytes 5.8 2.0 - 12.0 08/14/2012 Normal [facility] HEMATOLOGY Eosinophils 2.5 0.0 - 4.0 08/14/2012 Normal [facility] HEMATOLOGY MPV 7.8 7.4 - 10.4 08/14/2012 Normal [facility] HEMATOLOGY Platelet 188 133 - 450 08/14/2012 Normal [facility] HEMATOLOGY RDW 13.6 11.5 - 14.5 08/14/2012 Normal [facility] HEMATOLOGY MCHC 32.6 32.0 - 36.0 08/14/2012 Normal [facility] HEMATOLOGY MCH 29.3 27.0 - 31.0 08/14/2012 Normal [facility] HEMATOLOGY MCV 89.9 81.0 - 99.0 08/14/2012 Normal [facility] HEMATOLOGY Hct 28.3 36.0 - 48.0 08/14/2012 LOW [facility] HEMATOLOGY RBC 3.15 4.20 - 5.40 08/14/2012 LOW [facility] HEMATOLOGY Hgb 9.2 12.0 - 16.0 08/14/2012 LOW [facility] HEMATOLOGY WBC 5.8 3.7 - 10.4 08/14/2012 Normal [facility] BLOOD BANK RESULTS Antibody Scrn Negative (08/13/2012 18:59:00) 08/13/2012 Normal [facility] BLOOD BANK RESULTS ABO/Rh O POS 08/13/2012 Unknown [facility] BLOOD BANK RESULTS RBC product Product available 1 (08/13/2012 17:46:00) 08/13/2012 Normal <sup>1</sup>Result Comment: 08/13/2012 20:21 [id number]
Called to Deja Ellis at 08/13/2012 20:21 by AN [facility] HEMATOLOGY Hct 25.5 36.0 - 48.0 08/13/2012 LOW [facility] HEMATOLOGY Hgb 8.4 12.0 - 16.0 08/13/2012 LOW [facility] HEMATOLOGY Hgb 9.4 12.0 - 16.0 08/12/2012 LOW [facility] HEMATOLOGY Hct 28.2 36.0 - 48.0 08/12/2012 LOW [facility] BLOOD BANK RESULTS Antibody Scrn Negative (08/09/2012 04:05:00) 08/09/2012 Normal [facility] BLOOD BANK RESULTS ABO/Rh O POS 08/09/2012 Unknown [facility] CHEMISTRY Globulin 3.5 2.0 - 4.0 08/09/2012 Normal [facility] CHEMISTRY A/G Ratio 1.1 0.7 - 1.6 08/09/2012 Normal [facility] CHEMISTRY B/C Ratio 18 6 - 25 08/09/2012 Normal [facility] CHEMISTRY AGAP 15.8 10.0 - 20.0 08/09/2012 Normal [facility] CHEMISTRY eGFR 52 08/09/2012 NA <sup>2</sup>Result Comment: The eGFR is calculated using the CKD-EPI formula. In most young, healthy individuals the eGFR will be >90 mL/min/1.73m2. The eGFR declines with age. An eGFR of 60-89 may be normal in some populations, particularly the elderly, for whom the CKD-EPI formula has not been extensively validated. Use of the eGFR is not recommended in the following populations:& lt;br/>
Individuals with unstable creatinine concentrations, including patients and those with serious co-morbid conditions.

Patients with extremes in muscle mass or diet.

The data above are obtained from the National Kidney Disease Education Program (NKDEP) which additionally recommends that when the eGFR is used in patients with extremes of body mass index for purposes of drug dosing, the eGFR should be multiplied by the estimated BMI. [facility] CHEMISTRY Bili Total 0.1 0.2 - 1.3 08/09/2012 LOW [facility] CHEMISTRY AST 22 0 - 37 08/09/2012 Normal [facility] CHEMISTRY Creatinine Lvl 1.2 0.5 - 1.4 08/09/2012 Normal [facility] CHEMISTRY Calcium Lvl 8.7 8.5 - 10.5 08/09/2012 Normal [facility] CHEMISTRY Total Protein 7.2 6.4 - 8.4 08/09/2012 Normal [facility] CHEMISTRY CO2 22 24 - 32 08/09/2012 LOW [facility] CHEMISTRY ALT 36 0 - 65 08/09/2012 Normal [facility] CHEMISTRY Alk Phos 164 39 - 136 08/09/2012 HI [facility] CHEMISTRY Albumin Lvl 3.7 3.5 - 5.0 08/09/2012 Normal [facility] CHEMISTRY Glucose Lvl 140 70 - 99 08/09/2012 HI <sup>3</sup>Interpretive Data: Adult reference range values reflect the clinical guidelines
of the [place] [employer]. [facility] CHEMISTRY BUN 21 7 - 22 08/09/2012 Normal [facility] CHEMISTRY Sodium Lvl 143 135 - 145 08/09/2012 Normal [facility] CHEMISTRY Chloride Lvl 109 95 - 109 08/09/2012 Normal [facility] CHEMISTRY Potassium Lvl 3.8 3.5 - 5.1 08/09/2012 Normal [facility] HEMATOLOGY Segs-Bands # 9.4 1.5 - 8.1 08/09/2012 [facility] HEMATOLOGY Lymphocytes # 1.4 1.0 - 5.5 08/09/2012 Normal [facility] HEMATOLOGY Basophils 0.2 0.0 - 1.0 08/09/2012 Normal [facility] HEMATOLOGY Eosinophils 0.5 0.0 - 4.0 08/09/2012 Normal [facility] HEMATOLOGY Monocytes # 0.5 0.0 - 0.8 08/09/2012 Normal [facility] HEMATOLOGY Segs 82.7 45.0 - 75.0 08/09/2012 [facility] HEMATOLOGY Lymphocytes 12.4 20.0 - 40.0 08/09/2012 LOW [facility] HEMATOLOGY Monocytes 4.2 2.0 - 12.0 08/09/2012 Normal [facility] HEMATOLOGY Plt Morph Normal (08/09/2012 02:30:00) 08/09/2012 Normal [facility] HEMATOLOGY RBC Morph Normal (08/09/2012 02:30:00) 08/09/2012 Normal [facility] Basophils # 0.0 0.0 - 0.2 08/09/2012 Normal [facility] HEMATOLOGY Eosinophils # 0.1 0.0 - 0.5 08/09/2012 Normal [facility] INR 0.88 0.85 - 1.17 08/09/2012 Normal <sup>4</sup>Interpretive Data: RECOMMENDED RANGES FOR PROTIME INR:
2.0-3.0 for most medical and surgical thromboembolic states.
2.5-3.5 for artificial heart valves and recurrent embolism.

INR SHOULD BE USED ONLY FOR PATIENTS ON STABLE ANTICOAGULANT THERAPY. [facility] PTT 26.4 22.9 - 35.8 08/09/2012 Normal <sup>5</sup>Interpretive Data: Heparin Therapeutic Range: 57 - 92 Seconds [facility] PT 12.2 12.0 - 14.7 08/09/2012 Normal [facility] MCH 29.4 27.0 - 31.0 08/09/2012 Normal [facility] MCV 90.7 81.0 - 99.0 08/09/2012 Normal [facility] Platelet 223 133 - 450 08/09/2012 Normal [facility] MPV 8.5 7.4 - 10.4 08/09/2012 Normal [facility] RDW 13.9 11.5 - 14.5 08/09/2012 Normal [facility] WBC 11.3 3.7 - 10.4 08/09/2012 HI [facility] MCHC 32.4 32.0 - 36.0 08/09/2012 Normal [facility] RBC 4.19 4.20 - 5.40 08/09/2012 LOW [facility] URINALYSIS UA Urobilinogen 0.1 - 1.0 08/09/2012 NA [facility] URINALYSIS UA Bacteria Few /HPF *NA* (08/09/2012 02:30:00) None Seen 08/09/2012 [facility] URINALYSIS UA RBC 23 0 - 2 08/09/2012 [facility] URINALYSIS UA pH 5.0 5.0 - 8.0 08/09/2012 Normal [facility] URINALYSIS UA Protein Negative mg/dL (08/09/2012 02:30:00) Negative 08/09/2012 Normal [facility] URINALYSIS UA Turbidity Slight *ABN* (08/09/2012 02:30:00) Clear 08/09/2012 ABN [facility] URINALYSIS UA Spec Grav 1.021 <=1.030 08/09/2012 Normal [facility] URINALYSIS UA Glucose Negative mg/dL *NA* (08/09/2012 02:30:00) Negative 08/09/2012 [facility] URINALYSIS UA Ketones Negative mg/dL *NA* (08/09/2012 02:30:00) Negative 08/09/2012 [facility] URINALYSIS UA Sq Epi Occasional /LPF *NA* (08/09/2012 02:30:00) Few 08/09/2012 NA [facility] URINALYSIS UA Leuk Est Negative (08/09/2012 02:30:00) Negative 08/09/2012 Normal [facility] URINALYSIS UA WBC 8 0 - 5 08/09/2012 HI [facility] URINALYSIS UA Blood Negative (08/09/2012 02:30:00) Negative 08/09/2012 Normal [facility] URINALYSIS UA Nitrite Negative (08/09/2012 02:30:00) Negative 08/09/2012 Normal [facility] URINALYSIS UA Color Yellow *NA* (08/09/2012 02:30:00) Yellow 08/09/2012 [facility] URINALYSIS UA Bili Negative *NA* (08/09/2012 02:30:00) Negative 08/09/2012 [facility] Microbiology Culture: Urine 08/09/2012 [facility] Bacterial urine culture Bacterial urine culture Urine Culture [facility] Pathology Reports No Data Provided for This Section Diagnostic Reports Report Value Date Source Bone scan 3 phase NM EXAMINATION: Bone scan 3 phase NM CLINICAL: - M25.562 Pain in left knee COMPARISON: Plain films of the left knee from 09/18/2014 TECHNIQUE: Following the intravenous administration of 27.8 millicuries technetium 99m MDP, immediate flow and blood pool images were obtained of the bilateral knees followed by subsequent delayed images of the bilateral knees. COMMENTS: The blood flow images demonstrate relative area of photopenia in the region of the left knee, compatible with prior left total knee arthroplasty. No periprosthetic uptake is seen. The blood pool images demonstrate no periprosthetic uptake about the left knee. The delayed images demonstrate periprosthetic uptake in the distal left femur and proximal left tibia as well as left patella. Diffuse uptake throughout the right knee is seen, compatible with degenerative change. IMPRESSION: Postoperative changes of left total knee arthroplasty. There is no evidence of hardware loosening or infection. SL: [id number] 08/19/2018 [facility] CVC remove tunnel w/-w/o port/pump VR Patient Name: SNEHA CARLISLE : 1960 Age: 57 years Female MR: [id number] Study: CVC remove tunnel w/-w/o port/pump VR 01/26/2018 14:13 SLIP TENDER Indication: Malfunctioning port. Comparison: None Preoperative diagnosis: Malfunctioning port. Postoperative diagnosis: Malfunctioning port. PROCEDURE: Fluoroscopic-guided right internal jugular tunneled chest port removal Pain control: Subcutaneous 1% lidocaine for local anesthesia. Fluoroscopy time: 05 seconds. Total dose: 1.0 mGy Contrast: none Estimated blood loss: Less than 2 cc Specimens: Chest port. Implants/grafts: None Blood products administered: None. Complications: None immediate Condition at procedure completion: Stable Disposition: PACU CONSENT: The procedure, risks, benefits and alternatives were discussed with the patient. Questions were entered. A written informed consent was obtained. A 'time out' was performed per protocol prior to the procedure. Clinical discussion: Focused physical examination demonstrated a palpable right chest port. A safe approach was determined. TECHNIQUE: The patient was placed in a supine position on the fluoroscopy table. The patient's right upper chest was prepped and draped with sterile technique. All elements of maximum sterile barrier technique were utilized. 1% lidocaine was infused into the subcutaneous tissues of the chest wall for local anesthesia. Lidocaine was also infused into the capsule surrounding the port. An incision was made using a #11 blade. Blunt dissection was utilized to locate the junction of the port and the catheter. The catheter portion was isolated and removed. Direct examination of the catheter tip demonstrated an intact catheter. Blunt dissection adjacent to the port was utilized to mobilize the port within the capsule. The port was removed. Direct examination of the port demonstrated nonintact port. The port pocket was flushed with sterile saline. The incision site was closed using interrupted deep and running subcuticular Vicryl sutures. Sterile dressings were applied. The patient tolerated the procedure well. There were no immediate complications. The patient was transferred to the postprocedure area in stable unchanged condition for further monitoring. IMPRESSION: Successful removal of a right internal jugular tunneled chest port utilizing fluoroscopic guidance. SL: CSODERSTROM-PC 01/26/2018 [facility] CVC insert tunnel w/-w/o port/pump age 5+ yrs VR Patient Name: SNEHA CARLISLE : 1960 Age: 57 years Female MR: [id number] Study: CVC insert tunnel w/-w/o port/pump age 5+ yrs VR 01/26/2018 12:51 SLIP TENDER Indication: Need for long-term central venous access. Comparison: None Preoperative diagnosis: Need for long-term central venous access. Postoperative diagnosis: Same. PROCEDURE: Ultrasound and fluoroscopic-guided placement of a chest port Pain control: Fentanyl 150 mcg IV. Subcutaneous 1% lidocaine for local anesthesia. Sedation: Versed 3 mg IV. Moderate conscious sedation for a total sedation time of 33 min. I supervised conscious sedation during this procedure. The patient was independently monitored by a dedicated nurse using automated blood pressure, EKG and pulse oximetry. The detailed conscious sedation record is personally stored in the hospital information system. Fluoroscopy time: 72 seconds. Total dose: 6 mGy Ultrasound: Utilized for venous access. Image was stored to the medical record. Fluoroscopy: Utilized for image guidance for catheter placement. Image stored on PACS. Implants/grafts: Chest port. Left internal jugular vein access. Contrast: None. Estimated blood loss: Less than 2 cc. Specimens: None Blood products administered: None. Complications: None. Condition at procedure completion: Good. Disposition: PACU. CONSENT: The procedure, risks, benefits and alternatives were discussed with the patient. Questions were entered. A written informed consent was obtained. A 'time out' was performed per protocol prior to the procedure. Clinical discussion: Focused sonographic evaluation of the neck demonstrated a patent and compressible internal jugular vein. A safe approach was determined. TECHNIQUE: The patient was placed in a supine position on the fluoroscopy table. The patient's neck and chest were prepped and draped with sterile technique. All elements of maximum sterile barrier technique were utilized. The overlying skin was anesthetized with 1% lidocaine. Utilizing direct ultrasound guidance, a 21-gauge needle was advanced into the vein. A 0.018 inch wire was advanced centrally under fluoroscopic guidance. An access sheath was advanced over the wire to secure the venous access. The wire was upsized to a 0.035 inch wire. Utilizing fluoroscopic guidance, the wire was advanced into the right atrium and then into the inferior vena cava for stability. 1% lidocaine was infused into the subcutaneous tissues of the chest wall and neck for local anesthesia. An incision was made using a #11 blade, and a pocket created within the chest wall using blunt dissection. The catheter was tunneled under the skin to the IJ puncture site. The peel-away sheath was inserted over the wire. The catheter was then inserted until the tip projected over the upper right atrium. The peel-away sheath was removed, and the catheter was connected to the chest port. The port demonstrated proper function with aspiration and flush of sterile saline. No leak was visualized. The port was flushed with sterile saline. The port was infused with heparin. The pocket was flushed with sterile saline. The port was placed within the pocket. The incision site was closed using deep and subcuticular Vicryl sutures. The skin puncture site in the neck was closed using Dermabond. Sterile dressings were applied. The patient tolerated the procedure well. There were no immediate complications. The patient was transferred to the postprocedure area in stable unchanged condition for further monitoring. IMPRESSION: Successful placement of a left IJ chest port utilizing ultrasound and fluoroscopic guidance. SL: CSODERSVALENTINO 01/26/2018 [facility] CVC Injection (VR) Patient Name: SNEHA CARLISLE : 1960; Age: 57 years Female MR: [id number] Study: CVC Injection (VR) 01/19/2018 13:01 SLIP TENDER PROCEDURE: Fluoroscopic assessment of a right subclavian chest port CLINICAL INFORMATION: Intermittently malfunctioning right chest port. The patient's right chest port was placed in March 2017 and has intermittently functioned since. Over the past few weeks, the port has become increasingly problematic. The issue is further exacerbated as patient requires near daily infusions. 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 CONSENT: The procedure, risks, benefits and alternatives were discussed with the patient and written informed consent was obtained. A 'time out' was performed per protocol prior to the procedure. TECHNIQUE: slurry tank operator: Dr. Valentine Preoperative diagnosis: Malfunctioning right subclavian chest port Postoperative diagnosis: Same Fluoroscopy time: 39 seconds Reference air kerma: 1.86 mGy Estimated blood loss: Minimal Initial automobile salesman image demonstrates a right subclavian chest port with tip projecting over the cavoatrial junction. No evidence of catheter kinking or discontinuity. The right chest port was prepped and draped using sterile technique. The port site appears intact without erythema or edema. The catheter was accessed with a Bryan needle. Multiple needle positions were necessary before the catheter could be easily aspirated and flushed. Patient describes a similar problem at the infusion center. The Bryan needle was removed and sterile dressings applied. Patient tolerated the procedure well without immediate complication. IMPRESSION: Intermittently accessible right subclavian chest port. Evaluation for SVC occlusion or fibrin sheath could not be assessed given patient has an ALLERGIC history to iodinated contrast. Patient describes a similar and near daily problem at the infusion center regarding port access. Given patient's frequent requirements for infusion, the patient may benefit from new port placement. SL: [id number] 01/19/2018 [facility] only less than one hour VR PORT-A-CATH CHECK: HISTORY: Pain and intermittent malfunction of the right subclavian Port-A-Cath. The port was placed on 03/13/[address] Winston (Surgery) following removal of an infected left jugular Groshong catheter. She has had 2 previous left jugular port placements and removals at this facility due to infection. The port is being used for fluid support due to poor oral intake and poor venous access, with impending need for TPN. This is being done at home by herself and home health services. PROCEDURE: The procedure was done in the [facility]. Due to a history of anaphylaxis with iodinated contrast, and unspecified renal disease with a solitary kidney, neither iodinated contrast or gadolinium could be used. The patient has not been prepped for a contrast reaction. Visual inspection showed a well-healed scar in the right subclavicular region without erythema or fluctuance over the port or proximal catheter. The patient described tenderness with palpation. Fluoroscopy showed the Port-A-Cath to be intact and in good position with the tip in the lower SVC. There is no evidence of kinking or pinching at the costoclavicular junction. The fluoroscopic time was 0.6 minutes. The port was then sterilely accessed by the IR nurse with a Bryan needle and good blood return obtained. The port was easily flushed by the nurse and myself. Several re-aspirations with good blood return were done following which 2 mg of Cathflo were instilled. The Bryan needle was then capped and left in place at the patient's request for impending use later today. Sterile dressing was applied. There were no immediate complications, and the patient was discharged from [facility] in stable condition. COMMENTS/RECOMMENDATIONS: The port is functioning satisfactorily at this point, however the patient describes intermittent obstructions particularly after long infusions. This may be due to fibrin sheath formation, although this cannot be confirmed at this time due to the inability to administer contrast. If so, intermittent administration of Cathflo (Activase) following infusions may be helpful in preventing future malfunctions. This was discussed with her. The port does not appear infected, and the reason for the tenderness is uncertain. She has complained of this since placement, therefore it may be neuralgia related to the pocket creation. At this time, I have discouraged placement of a new port as this one appears to be functioning without infection, and due to multiple previous lines and continued future need for central venous access, vessel preservation needs to be considered. This was also discussed with her. ADELA 13 08/11/2017 [facility] 1view DX Clinical Indication: - left groshong removal, right portacath placement. Comparison: None FINDINGS: Frontal chest radiograph was obtained. The lungs are adequately inflated and clear. There is no focal airspace consolidation, pleural effusion or pneumothorax. Cardiac silhouette is stable. The bony structures are unremarkable. Post kyphoplasty changes are noted in the mid thoracic spine. There has been interval removal of the left IJ tunneled central venous catheter. There has been interval placement of a right subclavian Port-A-Cath. The tip projects over the right atrium. IMPRESSION: Interval removal of the left IJ tunneled central venous catheter. Interval placement of a right subclavian Port-A-Cath in good position without pneumothorax. SL: [id number] 03/13/2017 [facility] 1view DX Study: Chest 1view DX Clinical Indication: Central Line Placement - Chest 1 view for central line placement, portacath removal Comparison: Chest x-ray from 02/20/2017 FINDINGS: Left internal jugular central line is seen with tip in the SVC. There is no pneumothorax. Cardiac silhouette is normal in size. Lungs are without consolidation or congestion. Osseous structures are stable. IMPRESSION: Left internal jugular central line with tip in the SVC. There is no pneumothorax. SL: [id number] 02/21/2017 [facility] Chest 1view DX Study: Chest 1view DX Clinical Indication: Fever - Chest 1 view for central line placement Comparison: Chest x-ray from 09/18/2014 FINDINGS: The cardiac silhouette is normal in size. The lungs are clear and without consolidation or congestion. No pleural effusion or pneumothorax is seen. Changes of prior vertebral body augmentation in the midthoracic spine are seen. Left-sided Port-A-Cath is stable. IMPRESSION: No acute cardiopulmonary disease. SL: [id number] 02/20/2017 [facility] Arthrocentesis / Aspiration hip VR PERCUTANEOUS DRAINAGE OF LEFT HIP HEMATOMA: HISTORY: The patient had a left total hip arthroplasty on 08/29/2014. She fell on 09/19/2014, with the development of a soft tissue hematoma posterior to the proximal left femur and in the lateral subcutaneous soft tissues. Percutaneous drainage has been requested. PROCEDURE: Preliminary ultrasound over the left hip showed 2 components of the hematoma corresponding to the CT findings, the larger in the subcutaneous soft tissues beneath the incision, the other posterior to the proximal femur. Using sterile technique, local anesthetic and ultrasound guidance, a 5 Salvadorean Yueh catheter was placed into the superficial collection following which approximately 350 ml nonpurulent, nonclotting blood was obtained. The catheter was then removed. Follow-up ultrasound showed good evacuation of the superficial collection with persistent fluid in the posterior femoral collection. Using sterile technique, local anesthetic and ultrasound guidance, another 5 Salvadorean Yueh catheter was placed at the same site into the deeper collection posterior to the left femur. Approximately 120 ml of nonpurulent fluid was then drained which was initially serous, then becoming nonclotting blood towards the end of drainage. The catheter was then removed. Specimens from both collections were sent for cultures. The patient tolerated the procedure well without immediate complications, and was transferred back to her hospital room in stable condition. SL:13 09/21/2014 [facility] Pelvis AP DX PELVIS (1 view), portable History: Trauma, injury to pelvis, Pelvic pain. Comment : A frontal view of the pelvis was obtained utilizing portable technique. Radiographs of the left hip performed today, end a CT scan of the left hip which includes essentially the entire pelvis from yesterday were reviewed. FINDINGS: 1. The pelvic ring is intact. There is no evidence of fracture or other osteoarticular involving the pelvis. 2. Left hip prosthesis is noted. 3. Fractures of the left greater and lesser trochanters were demonstrated on the CT scan from yesterday. Please refer to that report. Also, please refer to the left hip radiograph from today. 4. Postoperative changes, right hip. A dynamic sliding hip screw and intramedullary hernesto are noted. 5. A surgical clip is noted in the right lower-mid abdomen. Coding: Pelvis AP CPT code: 65606 SL: Artemio Enriquez M.D. 09/20/2014 [facility] Hip 2 views DX LEFT HIP (2 Views) Portable. HISTORY: Trauma - injury to left hip, fractures of the greater and lesser trochanters. Comparison is made to A [address] scan of the left hip from yesterday was reviewed. TECHNIQUE: Frontal and oblique radiographs of the left hip were attained. FINDINGS: 1. No significant change in the appearance of the left hip. A subtle fracture of the greater trochanter is noted. The CT scan demonstrated a nondisplaced fracture the lesser trochanter which is not demonstrated. 2. No new fractures or other new abnormalities are seen. 3. Left total hip prosthesis in good position. Coding: Hip min 2 views CPT code: 56748 SL: 16 Sajan Enriquez M.D. 09/20/2014 [facility] wo contrast CT CT LEFT HIP WITHOUT CONTRAST WITH SAGITTAL AND CORONAL REFORMATTED IMAGES HISTORY: Fracture. COMPARISON: Left hip radiography dated 09/18/[address] dated 04/20/2013. FINDINGS: Minimally displaced comminuted fracture of the posterior superior aspect of the greater trochanter of the proximal femur is again noted. There is also a hairline nondisplaced fracture of the lesser trochanter (axial series 3 image 48). There is intramuscular fluid collection within the left gluteus medius muscle which tracks along the posterior aspect of the hip joint and measures 2.2 x 6.9 cm axial cross-section and 8.6 cm craniocaudad, likely subacute intramuscular hematoma. There is a fluid collection in the superficial fatty soft tissues of the lateral left hip with fluid fluid level which measures 4.0 x 9.9 cm axial cross-section and 17.6 cm craniocaudad compatible a subacute soft tissue hematoma. No definite fracture is seen within the intertrochanteric portion of the proximal femur although evaluation is mildly limited by streak artifact related to hip arthroplasty hardware. No evidence of hardware loosening. No dislocation. No other fracture is seen. IMPRESSION: 1. Comminuted and mildly displaced greater trochanter fracture. 2. Nondisplaced hairline fracture of the lesser trochanter. 3. Gluteus medius intramuscular subacute hematoma which tracks inferiorly along the posterior aspect of the hip joint. 4. Large subacute hematoma in the lateral superficial fatty tissues of the left hip. SL: 09/19/2014 [facility] Chest 1view DX Examination: Chest x-ray, single view History: Coughing Comparison: 08/09/2012 Findings: The lungs are clear and without focal consolidation. The cardiomediastinal silhouette is within normal limits. No pleural effusion or pneumothorax is seen. The osseous structures are without focal abnormality. Left-sided Port-A-Cath is stable. IMPRESSION: No acute cardiopulmonary disease. SL: 09/18/2014 [facility] Knee 1-2 Views unilateral DX Examination: Left knee, 3 views History: Pain and swelling Comparison: Views of the left knee from 02/28/2014 Findings: Multiple views of the left knee show stable postoperative changes of total knee arthroplasty and patellar resurfacing. No perihardware fracture or joint dislocation is seen. Bones are demineralized. Soft tissues are unremarkable. IMPRESSION: Stable postoperative changes of left total knee arthroplasty without hardware complication or acute bony abnormality. SL: 09/18/2014 [facility] Femur series DX Examination: Left femur, 4 views History: Pain and swelling Comparison: Single view of the pelvis from 08/29/2014. Findings: Multiple views of the left femur show postoperative changes of total hip arthroplasty as well as total knee arthroplasty. Acute, mildly displaced fracture of the greater trochanter is seen. The remaining osseous structures are intact. IMPRESSION: Acute, mildly displaced fracture of the greater trochanter. SL: 09/18/2014 [facility] Hip 2 views DX Examination: Left hip, 2 views History: Pain and swelling Comparison: Views of the left femur performed the same day Findings: Multiple views of the left hip show postoperative changes of total hip arthroplasty. Mildly displaced fracture of the greater trochanter is seen. Overlying surgical skin zully are again noted. IMPRESSION: Mildly displaced fracture of the greater trochanter. SL: 09/18/2014 [facility] Pelvis AP DX Pelvis AP HX: Pain, Trauma COMPARISON: 06/09/2014 at 06: 31 FINDINGS: A gamma nail is present in the right proximal femur from fixation of previous hip fracture. There is a total hip arthroplasty on the left in satisfactory alignment. Some gas is present in the adjacent soft tissues on the left. There are cutaneous zully from recent incision. IMPRESSION: 1. Left-sided total hip arthroplasty. 2. Recent postsurgical changes. SL: 12 08/29/2014 [facility] CVC insert tunnel w/-w/o port/pump age 5+ yrs VR PORT-A-CATH PLACEMENT: HISTORY: Malnutrition and dehydration post gastrectomy, with poor oral intake and poor venous access. The patient has previously been receiving fluids through a left subclavian Port-A-Cath which was removed on 05/26/2014 due to skin erosion. The previous port site has healed without sequelae. There was another suitable site on the left side for placement of a new port, remote from the previous site, which the patient preferred over the right side. PROCEDURE: Using ultrasound guidance, sterile technique and local anesthetic, the left internal jugular vein above the clavicle was accessed with a micropuncture set. An Amplatz wire was then placed under fluoroscopic guidance into the superior vena cava and then manipulated into the inferior vena cava. An incision was then made in the upper anterior chest wall in the left subclavicular region lateral and superior to the previous port site, following which a pocket was created using blunt finger dissection to the level of the fascia. An 8 Salvadorean open-ended catheter was then tunneled from the pocket to the access site in the neck. Following this the micropuncture sheath was exchanged for a peel-away sheath through which the catheter was placed and the sheath then removed. The catheter was positioned under fluoroscopy with its tip at the cavoatrial junction. The catheter was then trimmed to an appropriate length following which it was attached to a Bard Power Port and the retention collar applied. The port was then accessed with a noncoring needle following which there was good blood return. The port was then flushed with saline. The port was then placed into the pocket and positioned. The pocket incision was then closed with interrupted 3-0 Vicryl subcutaneous sutures and a 4-0 Vicryl running subcuticular suture. The access site in the neck was then closed with Dermabond. Steri-Strips were applied to both areas. The port was then accessed percutaneously with a Bryan needle needle. There was good blood return following which the port was flushed with approximately 20 ml of saline. The needle was left in place for immediate use. The patient tolerated the procedure well without immediate complications and was discharged from the Special Procedures department in stable condition. Spot imaging of the guidance procedures was done. The fluoroscopic time was 2.0 minutes. SL:13 07/24/2014 [facility] Hip 2 views DX LEFT HIP, intraoperative. HISTORY: 'Painful hardware.' Prior intraoperative images of the left hip obtained during open reduction and internal fixation from 04/21/2013 were reviewed. COMMENT: 4 digital C-arm intraprocedural images of the left hip were obtained. It is indicated the fluoroscopy time was 51 seconds. On the initial image, there are 3 left hip hands. It a marker (clamped) is noted adjacent to the lower portion the greater trochanter in near the heads of the hands. The 2 last images demonstrate removal of one of the 3 pins. The other 2 pins remain. SL: 12 Sajan Enriquez M.D. 06/09/2014 [facility] Upper GI Series w water soluble DX EXAM: Upper GI series CLINICAL INFORMATION: Feeding intolerance, See Clinic Indication, the patient reports history of bariatric surgery with subsequent removal of the stomach, now with vomiting TECHNIQUE: The patient ingested effervescent crystals and barium without difficulty. CT thorax dated 11/20/2006 FLUORO TIME: 1.9 minutes. FINDINGS: There is a moderate hiatal hernia which measures 5 x 6 cm and demonstrates mixed sliding and paraesophageal component. Changes of at least partial gastrectomy are identified. It is unclear whether the proximal most portion of the stomach remains or there has been complete gastric resection with esophagojejunal anastomosis. There is pooling of contrast in the distal esophagus just proximal to the anastomosis with delayed emptying into the hiatal hernia and subsequent delayed passage into the small bowel in the abdomen. No high-grade stricture is evident. IMPRESSION: Postoperative gastrectomy or partial gastrectomy with moderate mixed component hiatal hernia and delayed esophageal emptying. SL: 03/04/2014 [facility] Abdomen AP view Abdomen, one view. HISTORY: Vomiting. COMPARISON: None available. FINDINGS: Bowel gas pattern is nonobstructive. Bowel anastomotic suture is noted in the left abdomen. Moderate stool is noted in the right colon. No acute osseous abnormality. SL: 03/03/2014 [facility] Knee 1-2 Views unilateral DX Examination: Left knee, 2 views History: Arthritis Comparison: 04/21/2013 Findings: Multiple views of the left knee show new postoperative changes of total knee arthroplasty and patellar resurfacing with overlying foci of soft tissue gas and surgical skin zully. Anatomic alignment is maintained across the knee. IMPRESSION: Status post left total knee arthroplasty. SL: 16 02/28/2014 [facility] min 2 views LEFT HIP, intraoperative. HISTORY: Left femoral neck fracture. COMMENT: 4 digital C-arm intraprocedural images of the left hip were obtained during open reduction and internal fixation. Plain radiographs and the CT scan of the left hip demonstrating a nondisplaced or minimally displaced fracture of the left femoral neck from yesterday were reviewed. It is indicated the fluoroscopy time was one minute and 10 seconds. FINDINGS: The initial images a frontal automobile salesman image demonstrating good position of the fracture. Subsequent images demonstrate placement of 3 hip screws along the longitudinal axis of the femoral neck. The fracture and hardware appear to be in good position. SL: 13 Sajan Enriquez M.D. 04/21/2013 [facility] 3 views LEFT KNEE (2 views) HISTORY: Trauma to left knee, fall. COMMENT: Frontal and lateral radiographs of the right knee were obtained. FINDINGS: Negative study. There is no evidence of fracture, dislocation, or acute change. There are no degenerative changes or destructive lesions. There is no evidence of joint effusion. SL: 13 Sajan Enriquez M.D. 04/21/2013 [facility] wo contrast CT CT left hip without contrast: COMPARISON: The plain films left hip, 04/20/2013. TECHNIQUE: Contiguous transaxial images of the pelvis were performed. Targeted images of the left hip were subsequently generated from the initial axial data. Sagittal and coronal images are also available for review. FINDINGS: There is an oblique mildly impacted fracture of the left femoral neck. No significant displacement or varus or valgus angulation is noted at the left hip joint. No significant degenerative change is present at the left hip joint. Routine images through the pelvis reveal moderate amount retained stool in the rectosigmoid. No evidence to suggest small or large bowel obstruction. Bladder is unremarkable in appearance. Metallic hardware is noted at the right hip joint. IMPRESSION: Oblique, mildly impacted fracture of left femoral neck without significant displacement or angulation. SL:13 04/20/2013 [facility] min 2 views LEFT HIP, 2 VIEWS. INDICATION: Pain post fall. There is a probable slightly impacted subtle subcapital fracture of the proximal left femur. The hip joint is maintained. SL: 04/20/2013 [facility] Pelvis AP PELVIS, ONE VIEW. INDICATION: Pain post fall. There is a probable impacted nondisplaced left femoral neck fracture. Hardware stabilizes an old right proximal femoral fracture. The sacroiliac and hip joints are maintained. SL: 04/20/2013 [facility] Extremity lower venous Doppler Unilat US REASON FOR EXAM: DVT. Leg edema. COMPARISON: None. FINDINGS: Venous ultrasound of the right lower extremity was performed with graded compression, color flow and Doppler analysis. Static images are submitted. The common femoral, femoral and popliteal veins compress normally and demonstrate flow with normal respiratory phasicity and augmentation. Flow is demonstrated in the greater saphenous vein without demonstrable thrombus or reflux. IMPRESSION: There is no sonographic evidence for deep venous thrombosis in the examined veins of the right lower extremity. Please correlate clinically and consider follow-up imaging as indicated. Dictation code: 15 12/07/2012 [facility] Hip min 2 views These intraoperative spot films reveal reveal a fracture of the neck the proximal right femur been reduced and stabilized by the placement an intramedullary hernesto and threaded fixation pin SL: 08/10/2012 [facility] Chest 1view NAME: SNEHA CARLISLE : 1960 SEX: F Ordering Physician: Maggi Abad Chest 1view : Aug 09, 2012 03:50:00 AM. CLINICAL INDICATION: Trauma. Comparison Examination: None. FINDINGS: Left Port-A-Cath tip is in expected region of the SVC. Heart size is normal. Mediastinal structures are unremarkable. No focal infiltrate identified within the lungs, no edema and no pneumothorax. Bones and soft tissues are otherwise unremarkable. SL: 14 08/09/2012 [facility] Hip without contrast CT NAME: SNEHA CARLISLE : 1960 SEX: F Ordering Physician: Maggi Abad CT right Hip without contrast : Aug 09, 2012 02:13:00 AM. CLINICAL INDICATION: Trauma. Comparison Examination: Right hip plain films dated 08/08/2012. FINDINGS: Axial images were obtained through the right hip with sagittal and coronal reconstructions not performed on an independent console. There is a subtle right femoral neck fracture best seen on the axial images #26 and 27. No other fracture identified to the visualized bones. No dislocation. Small hyperdense right vaginal cyst noted. Right iliac artery calcification. The patient is status post hysterectomy. SL: 14 08/09/2012 [facility] Hip min 2 views NAME: SNEHA WINCHESTER : 1960 SEX: F Ordering Physician: Maggi Abad AP pelvis and two-view examination of the right hip : Aug 08, 2012 11:41:00 PM. CLINICAL INDICATION: Trauma. Comparison Examination: None. FINDINGS: On the AP pelvis examination, there is question of a fracture to the right pubis bone that is not confirmed on the AP view of the right hip. On the oblique image, there is a small linear lucency to the medial inferior right femoral neck region and a component of fracture in this region cannot be excluded. Recommend correlation with right hip CT. No other fracture or dislocation. SL: 14 08/08/2012 [facility] Consultation Notes No Data Provided for This Section Discharge Summaries No Data Provided for This Section History and Physicals No Data Provided for This Section Vital Signs Vital Sign Value Date Comments Source Height 64 08/18/2018 [facility] Diastolic (mm Hg) 80 08/18/2018 [facility] Systolic (mm Hg) 120 08/18/2018 [facility] Weight 170.0 08/18/2018 [facility] Height 64 03/03/2018 [facility] Diastolic (mm Hg) 71 03/03/2018 [facility] Systolic (mm Hg) 110 03/03/2018 [facility] Weight 163.4 03/03/2018 [facility] Weight 65.909 01/26/2018 [facility] BMI Calculated 24.94 01/26/2018 [facility] Height 162.56 cm 01/26/2018 [facility] Height 64 11/23/2017 [facility] Diastolic (mm Hg) 95 11/23/2017 [facility] Systolic (mm Hg) 154 11/23/2017 [facility] Weight 161.4 11/23/2017 [facility] Height 64 10/07/2017 [facility] Diastolic (mm Hg) 55 10/07/2017 [facility] Systolic (mm Hg) 82 10/07/2017 [facility] Weight 157.8 10/07/2017 [facility] Height 64 09/30/2017 [facility] Diastolic (mm Hg) 91 09/30/2017 [facility] Systolic (mm Hg) 132 09/30/2017 [facility] Weight 158.4 09/30/2017 [facility] Height 64 09/21/2017 [facility] Diastolic (mm Hg) 91 09/21/2017 [facility] Systolic (mm Hg) 132 09/21/2017 [facility] Weight 158.4 09/21/2017 [facility] Height 162.56 cm 08/11/2017 [facility] Weight 68.182 08/11/2017 [facility] BMI Calculated 25.8 08/11/2017 [facility] Height 64 06/02/2017 [facility] Diastolic (mm Hg) 84 06/02/2017 [facility] Systolic (mm Hg) 122 06/02/2017 [facility] Weight 154 06/02/2017 [facility] Systolic (mm Hg) 110 03/13/2017 [facility] Diastolic (mm Hg) 67 03/13/2017 [facility] Systolic (mm Hg) 109 03/13/2017 [facility] Diastolic (mm Hg) 72 03/13/2017 [facility] Systolic (mm Hg) 130 03/13/2017 [facility] Diastolic (mm Hg) 73 03/13/2017 [facility] Respitory Rate 12 03/13/2017 [facility] Respitory Rate 16 03/13/2017 [facility] Respitory Rate 16 03/13/2017 [facility] Height 162.56 cm 03/11/2017 [facility] Weight 66.903 03/11/2017 [facility] BMI Calculated 25.32 03/11/2017 [facility] Temperature Oral (F) 98.0 F 03/11/2017 [facility] Heart Rate 69 03/11/2017 [facility] Height 162.56 cm 03/09/2017 [facility] Weight 66.818 03/09/2017 [facility] BMI Calculated 25.29 03/09/2017 [facility] Systolic (mm Hg) 117 03/09/2017 [facility] Diastolic (mm Hg) 79 03/09/2017 [facility] Heart Rate 80 03/09/2017 [facility] Temperature Oral (F) 98.2 F 03/09/2017 [facility] Height 64 03/03/2017 [facility] Diastolic (mm Hg) 85 03/03/2017 [facility] Systolic (mm Hg) 113 03/03/2017 [facility] Weight 150.8 03/03/2017 [facility] Respitory Rate 16 02/23/2017 [facility] Systolic (mm Hg) 118 02/23/2017 [facility] Diastolic (mm Hg) 76 02/23/2017 [facility] Heart Rate 72 02/23/2017 [facility] Temperature Oral (F) 98.6 F 02/23/2017 [facility] Temperature Oral (F) 97.9 F 02/23/2017 [facility] Heart Rate 76 02/23/2017 [facility] Respitory Rate 16 02/23/2017 [facility] Systolic (mm Hg) 123 02/23/2017 [facility] Diastolic (mm Hg) 74 02/23/2017 [facility] Temperature Oral (F) 98.7 F 02/23/2017 [facility] Heart Rate 78 02/23/2017 [facility] Systolic (mm Hg) 95 02/23/2017 [facility] Diastolic (mm Hg) 68 02/23/2017 [facility] Respitory Rate 16 02/23/2017 [facility] Height 162.56 cm 02/20/2017 [facility] BMI Calculated 25.81 02/20/2017 [facility] Weight 68.2 02/20/2017 [facility] Height 64 10/29/2016 [facility] Diastolic (mm Hg) 79 10/29/2016 [facility] Systolic (mm Hg) 123 10/29/2016 [facility] Weight 148 10/29/2016 [facility] Height 64 07/02/2016 [facility] Diastolic (mm Hg) 65 07/02/2016 [facility] Systolic (mm Hg) 93 07/02/2016 [facility] Weight 146 07/02/2016 [facility] Height 64 02/21/2016 [facility] Diastolic (mm Hg) 83 02/21/2016 [facility] Systolic (mm Hg) 139 02/21/2016 [facility] Weight 151.8 02/21/2016 [facility] Systolic (mm Hg) 110 09/22/2014 [facility] Diastolic (mm Hg) 72 09/22/2014 [facility] Respitory Rate 16 09/22/2014 [facility] Heart Rate 98 09/22/2014 [facility] Temperature Oral (F) 98.1 F 09/22/2014 [facility] Systolic (mm Hg) 111 09/22/2014 [facility] Diastolic (mm Hg) 72 09/22/2014 [facility] Heart Rate 106 09/22/2014 [facility] Respitory Rate 16 09/22/2014 [facility] Temperature Oral (F) 97.9 F 09/22/2014 [facility] Systolic (mm Hg) 114 09/22/2014 [facility] Diastolic (mm Hg) 67 09/22/2014 [facility] Respitory Rate 14 09/22/2014 [facility] Heart Rate 87 09/22/2014 [facility] Temperature Oral (F) 98.6 F 09/22/2014 [facility] Weight 69.574 09/19/2014 [facility] Height 162.56 cm 09/19/2014 [facility] Weight 68.182 09/18/2014 [facility] Height 162.56 cm 09/18/2014 [facility] BMI Calculated 25.8 09/18/2014 [facility] Systolic (mm Hg) 96 08/31/2014 [facility] Diastolic (mm Hg) 50 08/31/2014 [facility] Temperature Oral (F) 97.3 F 08/31/2014 [facility] Heart Rate 93 08/31/2014 [facility] Respitory Rate 14 08/31/2014 [facility] Respitory Rate 16 08/31/2014 [facility] Systolic (mm Hg) 98 08/31/2014 [facility] Diastolic (mm Hg) 65 08/31/2014 [facility] Respitory Rate 14 08/31/2014 [facility] Heart Rate 98 08/31/2014 [facility] Temperature Oral (F) 97.8 F 08/31/2014 [facility] Temperature Oral (F) 97.9 F 08/31/2014 [facility] Heart Rate 92 08/31/2014 [facility] Systolic (mm Hg) 107 08/31/2014 [facility] Diastolic (mm Hg) 69 08/31/2014 [facility] BMI Calculated 22.33 08/30/2014 [facility] Weight 59.002 08/30/2014 [facility] Height 162.56 cm 08/30/2014 [facility] Height 64 08/22/2014 [facility] Diastolic (mm Hg) 77 08/22/2014 [facility] Systolic (mm Hg) 105 08/22/2014 [facility] BMI Calculated 24.77 08/17/2014 [facility] Weight 65.455 08/17/2014 [facility] Height 162.56 cm 08/17/2014 [facility] Height 162.56 cm 07/24/2014 [facility] BMI Calculated 25.29 07/24/2014 [facility] Weight 66.818 07/24/2014 [facility] Systolic (mm Hg) 121 06/09/2014 [facility] Diastolic (mm Hg) 61 06/09/2014 [facility] Systolic (mm Hg) 127 06/09/2014 [facility] Diastolic (mm Hg) 77 06/09/2014 [facility] Systolic (mm Hg) 115 06/09/2014 [facility] Diastolic (mm Hg) 62 06/09/2014 [facility] Respitory Rate 13 06/09/2014 [facility] Respitory Rate 12 06/09/2014 [facility] Temperature Oral (F) 98.0 F 06/07/2014 [facility] Heart Rate 87 06/07/2014 [facility] Respitory Rate 18 06/07/2014 [facility] Height 162.56 cm 06/07/2014 [facility] Weight 67.273 06/07/2014 [facility] BMI Calculated 25.46 06/07/2014 [facility] Weight 65.909 05/26/2014 [facility] BMI Calculated 24.94 05/26/2014 [facility] Height 162.56 cm 05/26/2014 [facility] Diastolic (mm Hg) 68 03/05/2014 [facility] Respitory Rate 14 03/05/2014 [facility] Temperature Oral (F) 97.8 F 03/05/2014 [facility] Systolic (mm Hg) 101 03/05/2014 [facility] Heart Rate 102 03/05/2014 [facility] Diastolic (mm Hg) 63 03/05/2014 [facility] Temperature Oral (F) 98.3 F 03/05/2014 [facility] Heart Rate 94 03/05/2014 [facility] Respitory Rate 14 03/05/2014 [facility] Systolic (mm Hg) 98 03/05/2014 [facility] Diastolic (mm Hg) 78 03/05/2014 [facility] Respitory Rate 14 03/05/2014 [facility] Temperature Oral (F) 97.9 F 03/05/2014 [facility] Systolic (mm Hg) 120 03/05/2014 [facility] Heart Rate 92 03/05/2014 [facility] BMI Calculated 27.43 03/01/2014 [facility] Weight 81.81 03/01/2014 [facility] Height 172.7 cm 03/01/2014 [facility] Height 172.72 cm 02/24/2014 [facility] BMI Calculated 27.43 02/24/2014 [facility] Weight 81.818 02/24/2014 [facility] Weight 165 01/24/[facility] Temperature Oral (F) 97.8 F 01/24/2014 [facility] Heart Rate 83 01/24/2014 [facility] Systolic (mm Hg) 151 01/24/2014 [facility] Diastolic (mm Hg) 92 01/24/2014 [facility] Height 64 01/24/2014 [facility] Height 64 01/02/2014 [facility] Diastolic (mm Hg) 84 01/02/2014 [facility] Systolic (mm Hg) 139 01/02/2014 [facility] Weight 170 01/02/2014 [facility] Height 64 11/01/2013 [facility] Diastolic (mm Hg) 89 11/01/2013 [facility] N[facility] Systolic (mm Hg) 146 11/01/2013 [facility] Weight 172 11/01/2013 [facility] Height 64 10/27/2013 [facility] N[facility] Diastolic (mm Hg) 81 10/27/2013 [facility] N[facility]am Systolic (mm Hg) 125 10/27/2013 [facility] N[facility] Height 64 10/06/2013 [facility] N[facility] Diastolic (mm Hg) 81 10/06/2013 [facility] Systolic (mm Hg) 127 10/06/2013 [facility] Weight 175 10/06/2013 [facility] Najam Diastolic (mm Hg) 68 04/23/2013 [facility] Systolic (mm Hg) 113 04/23/2013 [facility] Respitory Rate 16 04/23/2013 [facility] Heart Rate 83 04/23/2013 [facility] Temperature Oral (F) 97.6 F 04/23/2013 [facility] Temperature Oral (F) 98.7 F 04/23/2013 [facility] Respitory Rate 16 04/23/2013 [facility] Heart Rate 93 04/23/2013 [facility] Systolic (mm Hg) 97 04/23/2013 [facility] Diastolic (mm Hg) 65 04/23/2013 [facility] Respitory Rate 16 04/23/2013 [facility] Heart Rate 91 04/23/2013 [facility] Temperature Oral (F) 98.6 F 04/23/2013 [facility] Diastolic (mm Hg) 65 04/23/2013 [facility] Systolic (mm Hg) 101 04/23/2013 [facility] Weight 81 04/21/2013 [facility] Weight 81.818 04/20/2013 [facility] BMI Calculated 27.43 04/20/2013 [facility] Height 172.72 cm 04/20/2013 [facility] Weight 77.273 04/20/2013 [facility] Systolic (mm Hg) 133 01/18/2013 [facility] Diastolic (mm Hg) 73 01/18/2013 [facility] Respitory Rate 14 01/18/2013 [facility] Diastolic (mm Hg) 72 01/18/2013 [facility] Systolic (mm Hg) 127 01/18/2013 [facility] Respitory Rate 16 01/18/2013 [facility] Diastolic (mm Hg) 57 01/18/2013 [facility] Systolic (mm Hg) 125 01/18/2013 [facility] Respitory Rate 15 01/18/2013 [facility] Height 162.56 cm 01/17/2013 [facility] Weight 79.545 01/17/2013 [facility] Heart Rate 86 01/17/2013 [facility] Temperature Oral (F) 98.2 F 01/17/2013 [facility] Temperature Oral (F) 99 F 08/15/2012 [facility] Diastolic (mm Hg) 68 08/15/2012 [facility] Systolic (mm Hg) 136 08/15/2012 [facility] Heart Rate 80 08/15/2012 [facility] Respitory Rate 16 08/15/2012 [facility] Temperature Oral (F) 98.9 F 08/14/2012 [facility] Heart Rate 81 08/14/2012 [facility] Respitory Rate 20 08/14/2012 [facility] Systolic (mm Hg) 133 08/14/2012 [facility] Diastolic (mm Hg) 85 08/14/2012 [facility] Weight 81.3 08/09/2012 [facility] Height 162.5 cm 08/09/2012 [facility] Height 162.56 cm 08/09/2012 [facility] Weight 81.364 08/09/2012 [facility] Encounters Location Location Details Encounter Type Encounter Number Reason For Visit Attending Provider ADM Date DC Date Status Source [facility] Inpatient [id number] RIGHT FEMORAL NECK FX KYE FERGUSON 08/09/2012 08/14/2012 Active [facility] DS [id number] CATRACHITA EPNN 01/18/2013 01/18/[address] [facility] Inpatient [id number] _MAPID:[id number] Kye Ferguson 04/20/2013 04/23/2013 [facility] fibromyalgia [id number] 10/06/2013 10/06/2013 [facility] fibromyalgia [id number] 10/06/2013 10/06/2013 [facility] fibromyalgia [id number] 10/06/2013 10/06/2013 [facility] fibromyalgia [id number] 10/06/2013 10/06/2013 [facility] fibromyalgia [id number] 10/06/2013 10/06/2013 [facility] fibromyalgia [id number] 10/06/2013 10/06/2013 [facility] fibromyalgia [id number] 10/06/2013 10/06/2013 [facility] fibromyalgia [id number] 10/06/2013 10/06/2013 [facility] fibromyalgia [id number] 10/06/2013 10/06/2013 [facility] fibromyalgia [id number] 10/06/2013 10/06/2013 [facility] fibromyalgia [id number] 10/06/2013 10/06/2013 [facility] fibromyalgia [id number] 10/06/2013 10/06/2013 [facility] labs [id number] 10/06/2013 10/06/2013 [facility] labs [id number] 10/06/2013 10/06/2013 [facility] Rhe[facility] Clinic labs [id number] 10/06/2013 10/06/2013 [facility] labs [id number] 10/06/2013 10/06/2013 [facility] labs [id number] 10/06/2013 10/06/2013 [facility] Rhe[facility] labs [id number] 10/06/2013 10/06/2013 [facility] labs [id number] 10/06/2013 10/06/2013 [facility] labs [id number] 10/06/2013 10/06/2013 [facility] labs [id number] 10/06/2013 10/06/2013 [facility] labs [id number] 10/06/2013 10/06/2013 [facility] labs [id number] 10/06/2013 10/06/2013 [facility] labs [id number] 10/06/2013 10/06/2013 [facility] schedule MRIs [id number] 10/07/2013 10/07/2013 [facility] schedule MRIs [id number] 10/07/2013 10/07/2013 [facility] schedule MRIs [id number] 10/07/2013 10/07/2013 [facility] schedule MRIs [id number] 10/07/2013 10/07/2013 [facility] schedule MRIs [id number] 10/07/2013 10/07/2013 [facility] schedule MRIs [id number] 10/07/2013 10/07/2013 [facility] schedule MRIs [id number] 10/07/2013 10/07/2013 [facility] schedule MRIs [id number] 10/07/2013 10/07/2013 [facility] schedule MRIs [id number] 10/07/2013 10/07/2013 [facility] schedule MRIs [id number] 10/07/2013 10/07/2013 [facility] schedule MRIs [id number] 10/07/2013 10/07/2013 [facility] schedule MRIs [id number] 10/07/2013 10/07/2013 [facility] MRI Wrist Left [id number] 10/13/2013 10/13/2013 [facility] MRI Wrist Left [id number] 10/13/2013 10/13/2013 [facility] MRI Wrist Left [id number] 10/13/2013 10/13/2013 [facility] MRI Wrist Left [id number] 10/13/2013 10/13/2013 [facility] MRI Wrist Left [id number] 10/13/2013 10/13/2013 [facility] MRI Wrist Left [id number] 10/13/2013 10/13/2013 [facility] MRI Wrist Left [id number] 10/13/2013 10/13/2013 [facility] MRI Wrist Left [id number] 10/13/2013 10/13/2013 [facility] MRI Wrist Left [id number] 10/13/2013 10/13/2013 [facility] MRI Wrist Left [id number] 10/13/2013 10/13/2013 [facility] MRI Wrist Left [id number] 10/13/2013 10/13/2013 [facility] MRI Wrist Left [id number] 10/13/2013 10/13/2013 [facility] MRI Wrist Right [id number] 10/21/2013 10/21/2013 [facility] MRI Wrist Right [id number] 10/21/2013 10/21/2013 [facility] MRI Wrist Right [id number] 10/21/2013 10/21/2013 [facility] MRI Wrist Right [id number] 10/21/2013 10/21/2013 [facility] MRI Wrist Right [id number] 10/21/2013 10/21/2013 [facility] MRI Wrist Right [id number] 10/21/2013 10/21/2013 [facility] MRI Wrist Right [id number] 10/21/2013 10/21/2013 [facility] MRI Wrist Right [id number] 10/21/2013 10/21/2013 [facility] MRI Wrist Right [id number] 10/21/2013 10/21/2013 [facility] MRI Wrist Right [id number] 10/21/2013 10/21/2013 [facility] MRI Wrist Right [id number] 10/21/2013 10/21/2013 [facility] MRI Wrist Right [id number] 10/21/2013 10/21/2013 [facility] Follow Up Lab & MRI Results [id number] 10/27/2013 10/27/2013 [facility] Follow Up Lab & MRI Results [id number] 10/27/2013 10/27/2013 [facility] Follow Up Lab & MRI Results [id number] 10/27/2013 10/27/2013 [facility] Follow Up Lab & MRI Results [id number] 10/27/2013 10/27/2013 [facility] Follow Up Lab & MRI Results [id number] 10/27/2013 10/27/2013 [facility] Follow Up Lab & MRI Results [id number] 10/27/2013 10/27/2013 [facility] Follow Up Lab & MRI Results [id number] 10/27/2013 10/27/2013 [facility] Follow Up Lab & MRI Results [id number] 10/27/2013 10/27/2013 [facility] Follow Up Lab & MRI Results [id number] 10/27/2013 10/27/2013 [facility] Follow Up Lab & MRI Results [id number] 10/27/2013 10/27/2013 [facility] Follow Up Lab & MRI Results [id number] 10/27/2013 10/27/2013 [facility] Follow Up Lab & MRI Results [id number] 10/27/2013 10/27/2013 [facility] lab results per dr raymond [id number] 11/01/2013 11/01/2013 [facility] lab results per dr raymond [id number] 11/01/2013 11/01/2013 [facility] lab results per dr raymond [id number] 11/01/2013 11/01/2013 [facility] lab results per dr raymond [id number] 11/01/2013 11/01/2013 [facility] lab results per dr raymond [id number] 11/01/2013 11/01/2013 [facility] lab results per dr raymond [id number] 11/01/2013 11/01/2013 [facility] routine follow up [id number] 01/02/2014 01/02/2014 [facility] routine follow up [id number] 01/02/2014 01/02/2014 [facility] Rheumatology Clinic routine follow up [id number] 01/02/2014 01/02/2014 [facility] routine follow up [id number] 01/02/2014 01/02/2014 [facility] routine follow up [id number] 01/02/2014 01/02/2014 [facility] [id number] Evin Winston MD 01/24/2014 01/24/2014 [facility] Lab Report [id number] Evin Winston MD 01/25/2014 01/25/2014 [facility] Inpatient [id number] Catrachita Penn 02/28/2014 03/05/2014 [facility] Outpatient [id number] Nelson Krause 05/26/2014 05/27/2014 [facility] OBS Day Surgery [id number] Catrachita Penn 06/09/2014 06/09/2014 [facility] Outpatient [id number] Nelson Krause 07/24/2014 07/25/2014 [facility] Rheumatology Clinic Follow up [id number] 08/22/2014 08/22/2014 [facility] Follow up [id number] 08/22/2014 08/22/2014 [facility] Follow up [id number] 08/22/2014 08/22/2014 [facility] Follow up [id number] 08/22/2014 08/22/2014 [facility] Inpatient [id number] Catrachita Penn 08/29/2014 08/31/2014 [facility] Inpatient [id number] Catrachita Penn 09/18/2014 09/22/2014 [facility] Rheumatology Clinic routine folow up [id number] 12/05/2014 12/05/2014 [facility] routine folow up [id number] 12/05/2014 12/05/2014 [facility] routine folow up [id number] 12/05/2014 12/05/2014 [facility] F/U [id number] 02/21/2016 02/21/2016 [facility] F/U [id number] 02/21/2016 02/21/2016 [facility] F/U [id number] 02/21/2016 02/21/2016 [facility] labs WNL/Neurologist recommendation [id number] 02/27/2016 02/27/2016 [facility] labs WNL/Neurologist recommendation [id number] 02/27/2016 02/27/2016 [facility] PLAQUENIL REFILL REQUEST [id number] 03/25/2016 03/25/2016 [facility] [id number] Nabor Han 02/20/2017 02/23/2017 [facility] Outpatient [id number] EVIN WINSTON 02/21/2017 [facility] General Surgery [facility] Outpatient [id number] Nabor Han 02/21/2017 02/22/2017 [facility] Out[facility] [id number] EVIN WINSTON 03/09/2017 Active [facility] General Surgery [facility] Outpatient [id number] Evin Winston 03/09/2017 03/10/2017 [facility] Out[facility] [id number] EVIN WINSTON 03/13/2017 Active [facility] Day Surgery [id number] Evin Winston 03/13/2017 03/13/2017 [facility] General Surgery [facility] Outpatient [id number] Evin Winston 03/13/2017 03/14/2017 [facility] Outpatient [id number] EVIN WINSTON 03/24/2017 Active [facility] [id number] Evinehsan Winston 03/24/2017 03/24/2017 [facility] Outpatient [id number] Catrachita MarreroMiguel 04/15/2017 04/15/2017 [facility] Departed Emergency Room [id number] ELADIA BAKER MD 05/17/2017 05/17/2017 [facility] Registered Clinic [id number] JOSIE KRAUSE 07/07/2017 [facility] Outpatient [id number] Amialejandro Alexis 08/11/2017 08/12/2017 [facility] Discharged Inpatient [id number] CODEY CARSON MD 10/26/2017 11/05/2017 [facility] Outpatient [id number] Amir Alexis 01/19/2018 01/20/2018 [facility] Outpatient [id number] [facility] 01/26/2018 01/27/2018 [facility] Discharged Inpatient (obs) [id number] CODEY CARSON MD 05/20/2018 05/23/2018 [facility] Outpatient [id number] Corey Ceron 08/19/2018 08/20/2018 [facility] Procedures Procedure Code Date Perfomer Comments Source Ultrasound, renal [id number] 05/21/2018 [facility] Insertion of tunneled centrally inserted central venous access device, with subcutaneous port; age 5 years or older 57794 03/13/2017 [facility] Removal of tunneled central venous access device, with subcutaneous port or pump, central or peripheral insertion 54981 03/13/2017 [facility] Insertion of Port-a-cath<sup>1</sup> [id number] 03/13/2017 removal of groshong cath [facility] Removal of Port-a-cath and groshong cath placement<sup>2</sup> [id number] 02/21/2017 Removal of Port-a-cath and groshong cath placement [facility] Bilateral oophorectomy [id number] [facility] section<sup>1</sup> [id number] 1x1 [facility] Cholecystectomy [id number] [facility] Gastrectomy<sup>2</sup> [id number] 2complete [facility] Hysterectomy [id number] [facility] Nephrectomy<sup>3</sup> [id number] 3right [facility] Operation<sup>4</sup> [id number] 9vxls-j-phpr placement [facility] Operation<sup>5</sup> [id number] lasik procedure [facility] Operation<sup>6</sup> [id number] multiple colon surgery and exploratory laparotomy, [facility] Operation<sup>7</sup> [id number] lasik procedure [facility] Operation<sup>8</sup> [id number] multiple colon surgery and exploratory laparotomy, [facility] ORIF - Open reduction and internal fixation of fracture<sup>9</sup> [id number] 9right leg [facility] Tonsillectomy [id number] [facility] Gastrectomy [id number] [facility] Appendectomy<sup>1</sup> [id number] 1974 [facility] section<sup>2</sup> [id number] x1 [facility] Gastrectomy [id number] [facility] Gastrectomy<sup>3</sup> [id number] complete [facility] Gastric stapling [id number] [facility] Insertion of Port-a-cath [id number] [facility] Nephrectomy<sup>4</sup> [id number] right [facility] Operation<sup>9</sup> [id number] right hip surgery S/P fracture [facility] ORIF - Open reduction and internal fixation of fracture<sup>10</sup> 10862947 right leg [facility] Removal of Port-a-cath<sup>11</sup> [id number] 05/2014 sx site clean dry, no redness, intact, healing, mild bruising noted RAUL HE [facility] Total knee replacement<sup>12</sup> [id number] 02/2014 [facility] Appendectomy<sup>3</sup> [id number] [facility] section<sup>4</sup> [id number] x1 [facility] Gastrectomy<sup>5</sup> [id number] complete [facility] Nephrectomy<sup>6</sup> [id number] right [facility] Operation<sup>10</sup> 759790417 multiple adhesion surgeries [facility] Operation<sup>11</sup> [id number] port-a-cath placement [facility] ORIF - Open reduction and internal fixation of fracture<sup>12</sup> 76577872 right leg [facility] Removal of Port-a-cath<sup>13</sup> [id number] 05/2014 sx site clean dry, no redness, intact, healing, mild bruising noted RAUL HE [facility] Total knee replacement<sup>14</sup> [id number] 02/2014 [facility] Assessment and Plan Assessment and Plan Date Source Extracted from:Title: Clinical Document Author: Evin Winston MD Date: 03/13/17 OP PATIENT NAME: SNEHA CARLISLE DATE OF OPERATION/PROCEDURE: 03/13/2017 *_*_* SURGEON: Evin Winston MD. PREOPERATIVE DIAGNOSIS: Vitamin deficiency. POSTOPERATIVE DIAGNOSES: Vitamin deficiency. PROCEDURE PERFORMED: Ultrasound guided Port-A-Cath placement. Tunneled Groshong catheter removal. ANESTHESIA: 1. General. 2. 0.5% Marcaine 10 mL local. INDICATIONS FOR PROCEDURE: Sneha Carlisle is a 56-year-old female male with diagnosis of nonspecific vitamin. Patient will require monthly infusions. Patient was therefore scheduled for ultrasound-guided Port-A-Cath placement following informed consent. DESCRIPTION OF PROCEDURE: The patient was transported to the operating room, positioned supine on the operating table. General anesthesia was induced. The patient's entire chest and neck and region were carefully and thoroughly shaved, prepped and draped in the usual sterile fashion. Following successful completion of timeout procedure as per operating room protocol, 0.5% Marcaine 10 mL local anesthetic was administered to the right infraclavicular region. The patient was positioned in slight Trendelenburg. Using real time ultrasound guidance, percutaneous placement of flexible J-wire was placed using Seldinger technique into the right subclavian vein with confirmation of location on intraoperative fluoroscopy. Incision was created at the insertion point of the J-wire with a #15 scalpel. Subcutaneous tissue incised with electrocautery. Dilator introducer sheath were advanced over the J-wire and dilator were removed, leaving sheath in place. Catheter was advanced through the sheath, which was peeled away in normal manner leaving catheter tip in position at the junction of superior vena cava and right atrium on intraoperative fluoroscopic guidance. Catheter was cut, connected to the port, secured with plastic locking collar. Port was accessed with good blood return, flushed with sterile heparinized saline. Port was inserted into subcutaneous location and tunneled slightly secured to the level of the pectoralis fascia with interrupted 2-0 Prolene sutures. Subcutaneous tissue closed with interrupted 3-0 Vicryl sutures. Skin closed with a running subcuticular suture of 4-0 Vicryl. Dermabond was applied. Portacath was accessed without complication and needle left in place for home infusion later today. Next, groshong catheter was removed by incising the skin over the catheter cuff and sharp disection with #15 scalpel to release the catheter which was removed intact. It was passed off the sterile field and discarded. 3-0 vicryl was used to close the incision and dermabond applied. Patient was reversed from general anesthesia, extubated and returned to the postanesthesia care unit in stable condition. ESTIMATED BLOOD LOSS: Less than 10 mL COMPLICATIONS: None. _*_*_ Dictated by: EVIN WINSTON MD Extracted from:Title: Clinical Document Author: Evin Winston MD Date: 03/13/17 Chief Complaint s/p port a cath removal and groshong cath placement History of Present Illness Sneha Carlisle is a 56-year-old female who has undergone removal of Port-A-Cath for line sepsis. She history with IV antibiotics and ultimately released from the hospital following Port-A-Cath removal. Catheter tip did grow Pseudomonas. Currently she is afebrile. She is completed her embolic therapy while in the hospital. She is not currently on any antibiotics at this time. She is under the care of Dr. Omalley with the infectious disease service. She states she has been cleared to undergo and she does desire replacement of her Port-A-Cath. She has no new complaints this time. Review of Systems Constitutional Symptoms: neg fever, neg weight loss, neg weight gain Cardiovascular: neg chest pain, neg SOB, neg palpitations Respiratory: neg SOB, neg wheezing, neg dyspnea Gastrointestinal: neg hematemesis, neg hematochezia, neg abdominal pain Genitourinary: neg frequency, neg urgency, neg dysuria, neg inguinal hernia, neg inguinal pain Musculoskeletal: neg joint pain, neg arthritis, neg muscle aches Integumentary (skin and/or breast): neg rash, neg suspicious lesions, neg discoloration Neurological: neg blurred vision, neg double vision, neg headache Psychiatric: neg anxiety, neg depression, neg insomnia Endocrine: neg polyuria, neg polydipsia, neg cold or heat intolerance Hematologic/Lymphatic: neg bleeding, neg bruising, neg edema Physical Exam Vitals and Measurements HT: 162.56 cm HT Collection: Stated WT: 66.818 kg WT Collection: Measured BP: 117/79 HR(Peripheral): 80 bpm T(O): 98.2 DegF BP Site: Right arm BP Collection: Electronic BP Collection Position: Sitting BP Cuff Size: regular BMI: 25.29 m2 BSA: 1.737 m2 HEENT: normocephalic, atraumatic, pupils equal and reactive, oropharynx clear, no erythema or exudates NECK: supple, non tender, no cervical adenopathy, no thyromegaly or nodules CHEST/BREAST: left chest wall tunneled Groshong catheter in place. Previous Port-A-Cath removal incision clean dry intact. HEART: regular, no murmur LUNG: clear bilaterally ABDOMEN: soft, non tender, non distended, no palpable mass, no guarding, no peritoneal signs, neg Campos's sign, no hernia, normal bowel sounds GENITAL: deferred RECTAL: deferred EXTREMITIES: no clubbing, cyanosis, or edema PULSES: 2+ and equal bilaterally SKIN: no lesions or nodules NEURO: grossly non focal, sensory motor intact PSYCH: no anxiety of depression, normal affect Assessment/Plan 1. Malnutrition schedule ultrasound guided placement of Port-A-Cath and removal of Groshong catheter on 03/13/2017. I discussed with the patient risks, benefits, as well as alternatives to surgery in great detail. Patient verbalizes an understanding and agrees to proceed as discussed above. Questions have answered. 03/13/2017 ALCON Contreras Extracted from:Title: Discharge Summary * Author: Nabor Han MD Date: 02/23/17 Patient: SNEHA CARLISLE Age: 56 years Sex: Female : 1960 Associated Diagnoses: None Author: Nabor Han MD Results Review General results Labs (Last four charted values) WBC 3.9 (FEB 21) 7.6 (FEB 19) Hgb L 11.5 (FEB 21) 12.8 (FEB 19) Hct L 34.8 (FEB 21) 38.6 (FEB 19) Plt 318 (FEB 21) 379 (FEB 19) Na 140 (FEB 21) 138 (FEB 19) K 3.5 (FEB 21) 3.9 (FEB 19) CO2 L 21 (FEB 21) 26 (FEB 19) Cl H 111 (FEB 21) 105 (FEB 19) Cr 0.74 (FEB 21) 1.01 (FEB 19) BUN 13 (FEB 21) H 23 (FEB 19) Glucose Random 93 (FEB 21) 88 (FEB 19) Mg 2.3 (FEB 19) Ca L 8.0 (FEB 21) L 8.3 (FEB 19) Final discharge diagnoses: 1. Coag negative staph bacteremia/sepsis status post port removal with tunneled catheter placement 2. Hypertension 3. History of depression/anxiety Consultants: General surgery, infectious disease Discharge Information Disposition to home Condition stable Medications: See med reconciliation form Diet: Heart healthy Physical Examination VS/Measurements Vital Signs (last 24 hrs) Last Charted Temp Oral 98.6 DegF (FEB 23 15:33) Heart Rate Peripheral 72 bpm (FEB 23:33) Resp Rate 16 BRMIN (FEB 23:) SBP 118 mmHg (FEB 23:33) DBP 76 mmHg (FEB 23:) SpO2 97 % (FEB 23:) General: NAD, alert and oriented x3 HEENT: normacephalic, atraumatic, PERRLA, EOMI, supple w/ good ROM, normal pharynx Pulm: CTA B/L no w/r/r/c CV: +S1, +S2 no m/r/g, RRR, good cap refill, No JVD, no carotid bruits Abd: ND, NTTP, no rebound or guarding, BS+ Skin: intact, warm and dry, no rashes Musculoskeletal: 5/5 strength, normal range of motion, no swollen joints Neuro: alert and oriented x3, CN 2-12 intact Psychiatry: good judgment and insight Extremities: no edema, cyanosis or clubbing : no [place] Hospital Course 56-year-old female who was a direct admission from ID clinic due to underlying coag negative staph bacteremia. General surgery and ID was consulted. Patient's Port-A-Cath was removed by general surgery and a total catheter was placed. Patient continued on IV vancomycin while in the hospital. Patient already had home health with IV vancomycin already arranged and as per ID recommends continuing with same regimen and will follow-up closely as an outpatient in his office. While here the patient was doing well with no other complaints. On the day of discharge vital signs stable, labs are stable. Patient seen and evaluated examined thoroughly on a discharge blood complaints. Patient verbalized understanding and agrees to plan of care to follow-up coronary as an outpatient with ID as well as a primary care physician. Discharge Plan Follow-up with PCP in 1 week, ID 1 week The event of any worsening symptoms patient was to come back to the ED for further evaluation Discharge summary to greater than 35 minutes Addendum by Nabor Han MD on 02/23/2017 18:22 Blood cultures were negative, culture tip of the Port-A-Cath was negative as well Extracted from:Title: Clinical Document Author: Mariya Omalley MD Date: 02/23/17 Ifectious Disease Progress Note [facility] Dr. Mariya Omalley SUBJECTIVE Events reviewed. Patient seen and examined labs and medications reviewed . OBJECTIVE Doing well no new complaint Vitals and Temp: Vitals Tmp(F) Pulse BP RR SpO2 FIO2 02/23 07:34 98.7 78 95/68 16 99 --- 02/23 04:29 98.5 80 107/71 16 --- --- 02/23 00:16 98.2 76 119/73 16 --- --- 02/22 20:26 98.7 80 120/79 18 --- --- 02/22 15:32 98.8 69 113/77 18 97 --- 24 Hr Tmax: 98.8F (37.11c) at 02/22 15:32 Vital Signs are the last 5 in the past 48 hours. Input/Output Record In Out Bal 02/23 24hr Tot 490 0 490 02/22 24hr Tot 1640 0 1640 Physical Exam Gen: alert, no acute distress, follow command HEENT: not pale, not icteric, normal cephalic, Neck: Supple, no jvd, CV: S1, S2, no murmurs Lung: clear bilateral course BS Abd: soft, bowel sound normal, no tenderness Ext: no edema Skin: no rash Neuro: no seizure, no local finding Labs (Last four charted values) WBC 3.9 (FEB 21) 7.6 (FEB 19) Hgb L 11.5 (FEB 21) 12.8 (FEB 19) Hct L 34.8 (FEB 21) 38.6 (FEB 19) Plt 318 (FEB 21) 379 (FEB 19) Na 140 (FEB 21) 138 (FEB 19) K 3.5 (FEB 21) 3.9 (FEB 19) CO2 L 21 (FEB 21) 26 (FEB 19) Cl H 111 (FEB 21) 105 (FEB 19) Cr 0.74 (FEB 21) 1.01 (FEB 19) BUN 13 (FEB 21) H 23 (FEB 19) Glucose Random 93 (FEB 21) 88 (FEB 19) Mg 2.3 (FEB 19) Ca L 8.0 (FEB 21) L 8.3 (FEB 19) Medications Scheduled Meds (9):DULoxetine (Cymbalta), amLODIPine (Norvasc), aspirin, atorvastatin (Lipitor), enoxaparin, mirtazapine (Remeron), topiramate (Topamax), valsartan (Diovan), vancomycin + Sodium Chloride 0.9% IV 250 mL Unscheduled Meds: None PRN Meds (8):LORazepam (Ativan), acetaminophen-hydrocodone ([place]wick 5/325 oral tablet), acetaminophen, albuterol (Proventil HFA 90 mcg/inh inhalation aerosol with adapter), docusate, hydrALAZINE, melatonin, ondansetron One Time Meds: None Continuous Infusions: None ALL LABS REVIEW AND ALL RADIOLOGY REPORTS REVIEWED IMPRESSION Bacteremia coagulase-negative staph secondary to infected Port-A-Cath which was removed 1. Ultrasound-guided Groshong catheter placement. 2. Port-A-Cath removal. IV no IV access have a new IV line Repeat culture so far is negative Plan discharge home today Follow-up as an outpatient PLAN Extracted from:Title: Clinical Document Author: Mariya Omalley MD Date: 02/20/17 Ifectious Disease consult Note [facility] Dr. Mariya Omalley SUBJECTIVE: Patient seen and examined charts reviewed CHIEF COMPLAINT HPI: This is a very pleasant 56-year-old woman with a past medical history of bariatric surgery with subsequent complications, had a complete gastrectomy. She has since then been on chronic control and parenteral nutrition. She is able just to take fluids in but cannot keep up with her demands physiologically and has to administer IV fluids daily for adequate hydration. She has subsequently developed pernicious anemia, chronic malnutrition, vitamin deficiencies. Abdomen nausea, vomiting, osteoporosis and other processes as sequelae of her surgical procedures. She has decreased renal function due to having one solitary functioning kidney. She also has a history of Hewitt's esophagus, dysphagia, reported history of scleroderma, frequent constipation and obstructions. She had also a history of fibromyalgia, osteoporosis. She presents today at the behest of Dr. Omalley, her long time infectious disease doctor who has seen her on multiple occasions for various line infections. She noted that during transfusions, she was developing fever. The fever would kishan after transfusion. She was concerned for these findings and concerned that she had line sepsis in that this has happened before on a previous line. She has had this line for approximately 3 years without event and she contacted her doctor, Dr. Omalley, who arranged for a direct admission, under Dr. Han, to [facility] for further care and evaluation of her symptoms. In the past, she has had evaluation by Dr. Winston and interventional radiology for addressing her lines. She currently denies any significant pain or tenderness over the line site. Denies any erythema or discharge. The line has not been dramatically dislodged and it appears that it was described as being in place. Labs drawn today are grossly within normal limits. White count of 7.6 without significant neutrophilia. Her hemoglobin was stable at 12.8. Electrolytes were within normal limits with a stable creatinine of 1.01. The patient has experienced no nausea, vomiting, chest pain, dysuria, abdominal pain, fevers, or significant fevers or chills at this time. She has no headaches, sore throat, blurred vision, palpitations, no asymmetric lower extremity swelling. No recent travel, toxic food exposure or sick contacts. Patient has been running fever on and off for the last 4 weeks of blood cultures as an outpatient showed coagulase-negative staph she does have this Port-A-Cath which she had for 3 years now and concern is infected however the problem is she has very difficult IV access and the last time we had to have invasive radiologist to put the Port-A-Cath HOME MEDS REVIEWED PAST MEDICAL HISTORY: 1. Malnutrition. 2. Chronic anemia. 3. Vitamin deficiency, not otherwise specified. 4. Hewitt's esophagus. 5. Dysphagia. 6. Scleroderma. 7. Fibromyalgia. 8. Osteoporosis. PAST SURGICAL HISTORY: 1. Multiple central venous access and Port-A-Cath placements and removals. 2. Partial hysterectomy. 3. Right nephrectomy. 4. Oophorectomy 5. Gastric bypass. 6. Total gastrectomy. 7. Esophagojejunostomy. 8. Cholecystectomy. 9. section. 10. Appendectomy. 11. Cataract surgery. ROS: General: no fever, no chills, no night sweats, no fatigue HENT: no visual changes, no hearing changes, no headache Pulmonary:no shortness of breath, no cough Cardiac:no arithmea, no chest pain GI: no nausea, no vomitting, no diarrhea : no urgency, no frequency Skin: no rash Neuro: no seizure activity, no focal weakness Psyc: no depression or anxiety Joints: no redness or swelling , no pain Muscular: no weakness or pain All other Systems: within normal limit Dysphagia Complete gastrectomy Abdominal pain Anti-phospholipid syndrome Diffuse disease of connective tissue Abnormal coagulation time Gastrectomy Cholecystectomy Operation Tonsillectomy Hysterectomy Bilateral oophorectomy ORIF - Open reduction and internal fixation of fracture Nephrectomy Operation Operation Operation section Gastrectomy Operation Insertion of Port-a-cath Removal of Port-a-cath Total knee replacement Appendectomy Gastric stapling Employment/School Comment(s): none Sexual Details: Sexually active: No. Alcohol Details: Previous treatment: None. 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 Tobacco Details: Use: Never smoker. Tobacco smoke exposure: None. Did the Patient Smoke Cigarettes Anytime During the Last 365 Days? No. Cessation Counseling Provided? No. Details: Use: Never smoker. Type: Cigarettes. Tobacco smoke exposure: None. Did the Patient Smoke Cigarettes Anytime During the Last 365 Days? No. Cessation Counseling Provided? No. Substance Abuse Details: Use: None. Vitals and Temp: Vitals Tmp(F) Pulse BP RR SpO2 FIO2 02/20 11:16 98.7 85 105/72 18 97 --- 02/20 07:25 99.4 83 118/79 18 95 --- 02/20 05:48 100 --- ----- -- --- --- 02/20 04:21 100.6 96 137/84 18 --- --- 02/20 00:22 99.3 81 129/81 16 --- --- 24 Hr Tmax: 100.6F (38.11c) at 02/20 04:21 Vital Signs are the last 5 in the past 48 hours. Input/Output Record In Out Bal 02/20 24hr Tot 560 0 560 02/19 24hr Tot 301 400 -99 Physical Exam Labs (Last four charted values) WBC 7.6 (FEB 19) Hgb 12.8 (FEB 19) Hct 38.6 (FEB 19) Plt 379 (FEB 19) Na 138 (FEB 19) K 3.9 (FEB 19) CO2 26 (FEB 19) Cl 105 (FEB 19) Cr 1.01 (FEB 19) BUN H 23 (FEB 19) Glucose Random 88 (FEB 19) Mg 2.3 (FEB 19) Ca L 8.3 (FEB 19) Medications Scheduled Meds (8):DULoxetine (Cymbalta), amLODIPine (Norvasc), aspirin, atorvastatin (Lipitor), enoxaparin, mirtazapine (Remeron), topiramate (Topamax), valsartan (Diovan) Unscheduled Meds: None PRN Meds (7):acetaminophen-hydrocodone ([place] 5/325 oral tablet), acetaminophen, albuterol (Proventil HFA 90 mcg/inh inhalation aerosol with adapter), docusate, hydrALAZINE, melatonin, ondansetron One Time Meds (1):(Completed) LORazepam (Ativan) Continuous Infusions (1):Sodium Chloride 0.9% IV 1,000 mL ALL LABS REVIEW AND ALL RADIOLOGY REPORTS REVIEWED IMPRESSION Fever on and off for the last 4 weeks bacteremia coagulase-negative staph in a patient with Port-A-Cath concerned the patient has infected Port-A-Cath the plan is to admit start on vancomycin and recheck a blood cultures obtain a sed rate C reactive protein removal of the Port-A-Cath placement of some temporary IV access this is going to be difficult because the patient has no vein access and then after that replacement of the Portec since she does need IV access for IV fluid Status post gastrectomy which she would need intervention with IV fluid and IV nutrition once in a while PAST MEDICAL HISTORY: 1. Malnutrition. 2. Chronic anemia. 3. Vitamin deficiency, not otherwise specified. 4. Hewitt's esophagus. 5. Dysphagia. 6. Scleroderma. 7. Fibromyalgia. 8. Osteoporosis. PLAN We will follow with you discussed with all doctors and patient Extracted from:Title: Clinical Document Author: Florentin Haq MD Date: 02/20/17 full H&P dictated, #[id number] date/time: 02/20/2017 00:33 02/23/2017 [facility] Extracted from:Title: Clinical Document Author: Gianfranco Reed MD Date: 09/22/14 IPC Daily Progress Note [facility] Gianfranco Reed MD SUBJECTIVE: Pt seen and exam'd. Events noted. Following up fracture, anemia. OBJECTIVE: Vitals and Temp: Vitals Tmp(F) Pulse BP RR SpO2 FIO2 09/22 12:03 97.9 106 111/72 16 --- --- 09/22 07:43 98.6 87 114/67 14 99 --- 09/22 04:00 97.9 81 95/63 16 99 --- 09/21 23:24 98.6 97 120/77 17 --- --- 09/21 20:00 98.0 98 125/88 16 96 --- 24 Hr Tmax: 98.6F (37.00c) at 09/22 07:43 Vital Signs are the last 5 in the past 48 hours. Input/Output Record In Out Bal 09/22 24hr Tot 211 1600 -1389 09/21 24hr Tot 962 800 162 Labs (Last four charted values) WBC 4.7 (SEP 22) 5.6 (SEP 20) 7.0 (SEP 18) Hgb L 10.5 (SEP 22) L 9.9 (SEP 20) L 10.3 (SEP 18) Hct L 31.5 (SEP 22) L 29.9 (SEP 20) L 30.6 (SEP 18) Plt 261 (SEP 22) 278 (SEP 20) 293 (SEP 18) Na 138 (SEP 22) 141 (SEP 20) 142 (SEP 18) K 3.6 (SEP 22) 3.7 (SEP 20) 4.1 (SEP 18) CO2 24 (SEP 22) 25 (SEP 20) 26 (SEP 18) Cl H 116 (SEP 22) H 110 (SEP 20) H 110 (SEP 18) Cr 1.0 (SEP 22) 0.8 (SEP 20) 0.9 (SEP 18) BUN 10 (SEP 22) 10 (SEP 20) 15 (SEP 18) Glucose Random 74 (SEP 22) H 124 (SEP 20) 90 (SEP 18) Ca L 7.8 (SEP 22) L 7.2 (SEP 20) L 7.3 (SEP 18) PT 13.9 (SEP 18) INR 1.07 (SEP 18) PTT 29.2 (SEP 18) Medications Scheduled Meds (8):DULoxetine (Cymbalta), amLODIPine (Norvasc), atorvastatin (Lipitor), cyanocobalamin (Vitamin B12), enoxaparin, mirtazapine (Remeron SolTab), topiramate (Topamax), valsartan (Diovan) Unscheduled Meds: None PRN Meds (10):LORazepam (Ativan), acetaminophen-hydrocodone (acetaminophen- hydrocodone 325 mg-10 mg oral tablet), acetaminophen-hydrocodone (acetaminophen- hydrocodone 325 mg-10 mg oral tablet), albuterol (Proventil HFA 90 mcg/inh inhalation aerosol with adapter), dicyclomine (Bentyl), hydromorphone, ondansetron, ondansetron (Zofran ODT), promethazine (Phenergan), sodium chloride (Saline Flush 0.9%) One Time Meds: None Continuous Infusions (1):Dextrose 5% with 0.45% NaCl IV 1,000 mL (D5W 1/2NS 1,000 mL) EXAM: Gen: AAO X3, in NAD HEENT: PERRL, EOMI, NC/AT, MMM Neck: Supple without bruit or jvd. AIDA Lungs: Clear BL Heart: S1/S2, no MRG Abd: Positive bowel sounds, nt/nd, soft. Ext: No CCE Skin: warm/ dry/ intact Neuropsych: mentation appropriate. ASSESSMENT and PLAN: 1. Fall/ fracture. 2. Recent left total hip arthroplasty 3. Pernicious anemia. 4. Malnutrition. 5. Vitamin deficiency. 6. Chondromalacia. 7. Fibromyalgia. 8. Depression. 9. Osteoporosis. 10. Hewitt's esophagus. 11. Severe dysphagia 12. Scleroderma. 13. Chronic constipation. 14. Bowel obstruction. 15. Right nephrectomy. Continue iv fluids Had aspiration of hematoma yesterday. PT as tolerated. Pain control. Diet as tolerated. Continue present medical treatment. Monitor BP and adjust treatment as needed. Continue statin. DC planning 09/22/2014 Diane Extracted from:Title: Clinical Document Author: Catrachita Penn MD Date: 08/31/14 DISCHARGE SUMMARY PATIENT NAME: Sneha Carlisle ATTENDING PHYSICIAN: Catrachita Penn MD DATE OF ADMISSION: 08/29/2014 DATE OF DISCHARGE: 08/31/2014 ADMISSION DIAGNOSIS: 1. Left hip avascular necrosis DISCHARGE DIAGNOSES: 1. s/p LATRICIA and Left DINESH. HOSPITAL COURSE: Mrs. Carlisle had a left femoral neck fracture approximately one year ago and did well until recently she began to have hip pain. It was thought to be from a screw and the screw was removed. Few weeks after the screw was removed she began to have hip pain again and it was noted that she had early collapse of her femoral head. Therefore, we discussed that we would have to perform LATRICIA and conversion to left DINESH. She has done very well and discharged on 08/31/2014. DISPOSITION: Home. CONDITION: Improving. ACTIVITY: Weight Bear As tolerated. FOLLOWUP: The patient will follow up with the orthopedist in 7- 10 days. rehabilitation. MEDICATIONS: Please see discharge medication reconciliation form. Extracted from:Title: Clinical Document Author: Catrachita Penn MD Date: 08/31/14 Orthopedic Progress Note Daily SUBJECTIVE POD# 2 Left DINESH Doing well OBJECTIVE Left Lower Extremity Dressing intact Neurovascularly intact 2+ pulses ASSESSMENT S/P Left DINESH PLAN Change dressing in few days PT/OT Home Labs (Last four charted values) WBC 6.4 (AUG 17) Hgb L 10.7 (AUG 30) L 11.3 (AUG 29) 13.5 (AUG 17) Hct L 31.4 (AUG 30) L 34.6 (AUG 29) 39.6 (AUG 17) Plt 245 (AUG 29) 282 (AUG 17) Na 139 (AUG 17) K 4.5 (AUG 17) CO2 L 22 (AUG 17) Cl 109 (AUG 17) Cr 1.1 (AUG 29) 1.1 (AUG 17) BUN H 25 (AUG 17) Glucose Random 74 (AUG 17) Ca L 8.3 (AUG 17) PT 12.7 (AUG 29) 12.4 (AUG 17) INR 0.95 (AUG 29) 0.93 (AUG 17) PTT 27.3 (AUG 29) 28.2 (AUG 17) Vital Signs (last 24 hrs) Last Charted Temp Oral 97.9 DegF (AUG 31 04:13) Heart Rate Peripheral 92 bpm (AUG 31 04:13) Resp Rate 18 BRMIN (AUG 31 04:13) SBP 107 mmHg (AUG 31 04:13) DBP 69 mmHg (AUG 31:13) Extracted from:Title: Clinical Document Author: Catrachita Penn MD Date: 08/29/14 OPERATIVE REPORT PATIENT NAME: Sneha Carlisle DATE OF OPERATION/PROCEDURE: 08/29/2014 PREOPERATIVE DIAGNOSIS: Left hip avascular necrosis. POSTOPERATIVE DIAGNOSIS: Left hip avascular necrosis. PROCEDURE: 1. Conversion to Left total hip arthroplasty. 2. Removal of hardware left hip. SURGEON: Dr. Catrachita Penn. HAND TACKER: Corey Ceron NP. Please note that it was medically necessary to have a knowledgeable administrative personal assistant present for the case. Corey was present for the entire case and assisted with retracting and positioning the limb and protecting the sciatic nerve, dislocation and relocation of the hip, and attempts with implantation. Corey was present for the entire case and also assisted with closure and dressing. ANESTHESIA: General/Epidural. FLUIDS: 1400 cc. ESTIMATED BLOOD LOSS: 400 cc. DRAINS: None. COMPLICATIONS: None. CONDITION: To the recovery room in stable condition. INDICATIONS FOR PROCEDURE: The patient is a 54-year-old female with left femoral neck fracture and now has avascular necrosis. The patient understands all the risks and benefits of the procedure and wishes to proceed. The patient has end stage osteoarthritis and had attempted all conservative measures, including PT, NSAIDS, steroid injections, and cane with no success. PROCEDURE IN DETAIL: The patient was brought to the operating room and transferred over to the hospital operating room table without any complications. The patient was given general anesthesia and successfully intubated. The patient was positioned in the lateral position with the left side up and all bony prominences well-padded, and had an axillary roll placed. The patient had PRABHA hose and SCDs on the right leg. The patient was given 1 grams Vancomycin and had the left leg prepped and draped in standard sterile fashion. A standard posterior approach was taken to the hip. Dissection down to the fascia kaylee was performed maintaining hemostasis with electrocautery. Fascia kaylee was then incised and the greater trochanteric bursa was excised. The piriformis was identified, tagged and elevated off the posterior aspect of the greater trochanter, short external rotators and posterior capsule was identified and elevated off the greater trochanter. The two screws were palpated and removed without any issues. The hip was dislocated, the femoral neck was cut was made. At that point, a capsulotomy of the superior and anterior aspect was performed in order to mobilize the hip due to the retraction of the capsule. The hip was able to be mobilized anteriorly, slightly, and the acetabulum was now visualized. Once visualization of the acetabulum was obtained, the reaming began at a size 44 and proceeded up to a size 50. The 50 mm cup was trialed and had excellent fit and stability. At that point, the Dilley PSL size 50 mm cup was placed with two 6.5 screws which had an excellent bite. The 10-degree liner was placed and the femur was prepared. Once visualization of the femur was obtained, a cookie cutter was used to remove the proximal aspect of the intramedullary area followed by the canal finder. Broaching began with a 0 and proceeded up to a size 5. Calcar reamer was used to ream down the excess bone and a size 5 with 132 degree neck and a 36/-5 mm head was placed and the hip was reduced, had excellent length, was a little tight in extension and had good stability the patient. At that point, the trials were removed and the wound was copiously irrigated with normal saline and bacitracin. The femoral neck was removed and it was mobilized out of the way. The liner was placed which was an 10-degree liner and a size 5 Accolade II femoral stem with 132 degree neck and a 36/-5 ceramic head. The hip was reduced and had excellent length and stability. At that point, the wound was copiously irrigated with normal saline and bacitracin. The short external rotator piriformis and posterior capsule were all reattached to the posterior aspect of the greater trochanter through a bony bridge. The fascia kaylee was closed with a #1 Vicryl, 0 Vicryl for the Jose Manuel Monocryl for the subcutaneous layer and zully for the skin. Xeroform, 4 x 4s, ABD and dressing were applied. The patient was repositioned in the supine position. The patient was awoken from general anesthesia, successfully extubated and taken to recovery room in stable condition. All the needle, lap and sponge counts were correct at the end of the case. IMPLANTS: Kellie PSL cup size 50 with two 6.5 screws. Dilley size 5 Accolade II 132 degree neck. Dilley size 36/-5 mm ceramic head. Kellie 10-degree X3 liner. Catrachita Penn MD 08/31/2014 [facility] Extracted from:Title: IR Portacath Placement Author: Greg Maguire MD Date: 07/24/14 PROCEDURE REQUESTED: Portacath Placement REQUESTING PHYSICIAN: Nelson Krause DO HISTORY/INDICATIONS: Malnutrition with inadequate oral fluid intake. Needs medical terminologist venous access for fluids. Had left subclavian portacath which was removed on 05/26/2014 for skin erosion. Port had been in place for several years. Has been trying peripheral access, but becoming increasingly difficult. History of other previous central lines and PICC lines. MEDICAL: Gastric banding, total gastrectomy with esophagojejunostomy, pernicious anemia, scleroderma, lupus, antiphospholipid syndrome, Hewitt's esophagus, dysphagia, chronic nausea, hypertension, osteoporosis, chondromalacia patellae, fibromyalgia, depression, chronic kidney disease PROCEDURAL HISTORY: Nephrectomy, hysterectomy, oopherectomy, cholecystectomy, tonsillectomy, appendectomy, knee replacement, ORIF hip fracture MEDICATIONS: See medicine reconciliation ALLERGIES: Topical benzoin, cephalexin, ciprofloxacin, codeine, dexamethasone, iodine, loperidol, imatrex, immodium, penicillins, sulfa, demerol, Talwin PHYSICAL FINDINGS: BP 101/50 P 72 R 13 Alert, oriented, no acute distress SaO2 97% ETCO2 44 Regular rythym Previous left chest port site healed, non-erthythematous, remote from potential site for new port Multiple scars right subclavicular region from previous accesess IMPRESSION: Malnutrition with poor venous access PLAN: Portacath placement with US/fluoroscopy. Discussed jugular versus subclavian access and right versus left side. Jugular access planned. She would prefer left side again if feasible. Risks of bleeding, infection and poor wound healing discussed. ASA: III 07/25/2014 [facility] Extracted from:Title: Clinical Document Author: Catrachita Penn MD Date: 06/09/14 OPERATIVE REPORT PATIENT NAME: Sneha Carlisle DATE OF PROCEDURE: 06/09/2014 PREOPERATIVE DIAGNOSIS: Symptomatic Hardware left hip. POSTOPERATIVE DIAGNOSIS: Symptomatic Hardware left hip. NAME OF PROCEDURE: Removal of one screw left hip. SURGEON(s): Dr. Catrachita Penn. HAND TACKER: Corey Ceron NP. Please note that it was medically necessary to have a knowledgeable administrative personal assistant present for the case. Corey was present for the entire case and assisted with positioning, retraction, assistance with the removal of the implants, closure and dressing. ANESTHESIA: General. FLUIDS: 1000 mL LR. Estimated blood loss: 25 mL. COMPLICATIONS: None. CONDITION: To the recovery room in stable condition. INDICATIONS FOR PROCEDURE: The patient is a 54 year-old female who fell onto her left hip and then began having pain after she fell. Her hip pain was intermittent with movement. CT revealed that one screw is now sitting 1 mm past the chondral surface. After thorough discussion it was felt to remove the the one screw that is protruding. We discussed leaving the other screws due to her malnutrition and propensity for fracture. The patient and family understand all the risks and benefits of the procedure and wish to proceed. DESCRIPTION OF PROCEDURE: Please note the patient was then brought to the operating room. The patient was given general anesthesia and successfully intubated. The patient was transferred over to the hospital operating room table without any complications. The patient was given one gram of Vancomycin. All bony prominences were well padded. The limb was prepped and draped in standard sterile fashion. A time-out was performed and verified the procedure and the limb. An incision was made through the old incision with dissection taken down to the bone and hemostasis was maintained with the electrocautery. The periosteal elevator was used to elevate the periosteum and the hardware was palpated. The periosteal elevator elevated all the tissues off the screws and the long screw was carefully removed. The c-arm was subsequently used and verification was noted that the long screw had been removed. At that point, all wounds were copiously irrigated with normal saline and bacitracin. A 2-0 Monocryl for the subcutaneous layer, and steri-strips for the skin. 4x4's, ABD, and coverlet were applied. The patient was awoken from general anesthesia, successfully extubated, and taken to the recovery room in stable condition. All the needles, laps, and sponge counts were correct at the end of the case. Catrachita Penn MD 06/09/2014 [facility] Extracted from:Title: Clinical Document Author: Uli Montanez DO Date: 03/05/14 Progress Daily [facility] Completed: Feb, 12:13 by Uli Montanez DO RM: 245 - 1P, SE C2A SNEHA CARLISLE 53y (: 1960) F Attending: Uli Montanez DO Service: Internal Medicine Reason for Admission: [id number]/65426 Working DRG: Bone diseases and arthropathies w/o [facility] Code status: Full Code [Ordered] Current diet: Isolation: None Documented Allergies: Reglan, Talwin, sulfa drugs, penicillins, Keflex, iodine, Imodium A- D, Imitrex, Dexamethasone Sodium Phosphate, Demerol HCl, codeine, ciprofloxacin SUBJECTIVE Patient seen and examined. Events noted overnight. Labs/Images reviewed doing better, tolerating food OBJECTIVE Labs (Last four charted values) WBC 6.2 (MAR 05) 10.2 (MAR 04) H 13.0 (MAR 03) Hgb L 9.7 (MAR 05) L 10.7 (MAR 04) L 10.7 (MAR 04) L 11.1 (MAR 03) Hct L 29.1 (MAR 05) L 31.7 (MAR 04) L 31.7 (MAR 04) L 33.9 (MAR 03) Plt 289 (MAR 05) 285 (MAR 04) 266 (MAR 03) 265 (FEB 28) Na 143 (MAR 05) 141 (MAR 04) 136 (MAR 03) K L 3.3 (MAR 05) 3.7 (MAR 04) 3.8 (MAR 03) CO2 28 (MAR 05) L 22 (MAR 04) 24 (MAR 03) Cl H 110 (MAR 05) 107 (MAR 04) 103 (MAR 03) Cr 1.0 (MAR 05) 0.9 (MAR 04) 1.1 (MAR 03) 1.2 (FEB 28) BUN 14 (MAR 05) 16 (MAR 04) 14 (MAR 03) Glucose Random 88 (MAR 05) L 60 (MAR 04) 90 (MAR 03) Mg 2.1 (MAR 03) Ca L 7.4 (MAR 05) L 8.1 (MAR 04) L 8.2 (MAR 03) PT H 15.0 (MAR 04) 13.3 (FEB 28) L 11.8 (FEB 28) INR 1.17 (MAR 04) 1.01 (FEB 28) 0.87 (FEB 28) PTT 32.6 (MAR 04) 27.5 (FEB 28) 27.1 (FEB 28) ASSESSMENT and EXAM Gen: NAD, Alert, Awake HEENT: NC/AT, PERRLA, oral area clear and moist Neck: No LAD, No JVD, trachea midline Chest: CTAB, no c/w/r CV: RRR, S1, S2 GI: +BS, S, NT, ND, No organomegaly Ext: no c/c/e Neuro: AOx3, no gross deficits noted Skin: No notable rashes PLAN and TREATMENT diet advanced GI series - delayed transit, no strictures ok to d/c home resume anticoagulation for knee DIAGNOSES and PROBLEMS Hematoemesis Severe OA S/P Left TKA Post op anemia of acute blood loss Chronic N/V HTN Fibromialgia Ready for Discharge (Yes/No)? Deal still necessary (Yes/No): Line still necessary (Yes/No): 24hr Labs 03/05 1104 Glucose Lvl 88 BUN 14 Creatinine Lvl 1.0 Sodium Lvl 143 Potassium Lvl 3.3 L Chloride Lvl 110 H CO2 28 AGAP 8.3 L Calcium Lvl 7.4 L eGFR 64 WBC 6.2 RBC 3.37 L Hgb 9.7 L Hct 29.1 L MCV 86.3 MCH 28.7 MCHC 33.3 RDW 14.6 H Platelet 289 MPV 7.0 L Segs 76.6 H Monocytes 9.1 Lymphocytes 13.2 L Eosinophils 0.7 Basophils 0.4 Segs-Bands # 4.7 Lymphocytes # 0.8 L Monocytes # 0.6 Vitals Tmp(F) Pulse BP RR SpO2 FIO2 03/05 08:26 98.3 94 98/63 14 97 --- 03/05 04:28 97.9 92 120/78 14 93 --- 03/05 00:02 98.4 93 128/83 14 96 --- 03/04 20:20 98.7 92 133/80 14 92 --- 03/04 16:55 98.5 94 125/80 14 98 --- 24 Hr Tmax: 98.7F (37.06c) at 03/04 20:20 Vital Signs are the last 5 in the past 48 hours. Date Wt(kg) Wt(lb) Ht(cm) Ht(in) Method 02/28 81.81 179.98 Measured 02/24 (initial) 81.82 180.00 Measured 02/24 172.72 68.00 Stated I&O Record In Out Bal 03/05 24hr Tot 120 0 120 03/04 24hr Tot 444 0 444 Medications (37) Active Scheduled Meds (16): 03/01/14 DULoxetine (Cymbalta) 120 mg PO Bedtime 03/01/14 LORazepam (Ativan) 4 mg PO Bedtime 03/01/14 amLODIPine (Norvasc) 10 mg PO Bedtime 03/01/14 atorvastatin (Lipitor) 10 mg PO Bedtime 03/03/14 cyanocobalamin (Vitamin B12) 1,000 microgram IM QFri 02/28/14 docusate (docusate sodium 100 mg oral capsule) 100 mg PO BID 03/04/14 erythromycin + Sodium Chloride 0.9% IV 100 mL 250 mg IVPB Q12H 100 ml/hr 03/01/14 gabapentin (Neurontin 100 mg oral capsule) 100 mg PO QID 03/01/14 hydroxychloroquine (Plaquenil Sulfate 200 mg oral tablet) 400 mg PO Daily 03/01/14 mirtazapine 90 mg PO Bedtime 03/02/14 non-formulary (*RN- to bring pt's LAMISIL 250mg tab to pharmacy for label*) MISC TID 03/05/14 rivaroxaban (Xarelto) 10 mg PO Bedtime 03/01/14 sucralfate (Carafate 1 g/10 mL oral suspension) 2 gm PO BID 03/02/14 terbinafine (LamISIL) 250 mg PO Daily 03/01/14 topiramate (Topamax) 200 mg PO Bedtime 03/01/14 valsartan (Diovan) 160 mg PO Bedtime Unscheduled Meds: None PRN Meds (20): 02/28/14 Al hydroxide/Mg hydroxide/simethicone (Al hydroxide/Mg hydroxide/simethicone 200 mg-200 mg-20 mg/5 mL oral suspension) 30 ml PO Q4H 02/28/14 acetaminophen-hydrocodone (acetaminophen-hydrocodone 325 mg-5 mg oral tablet) 1 tab PO Q4H 02/28/14 acetaminophen-hydrocodone (acetaminophen-hydrocodone 325 mg-10 mg oral tablet) 1 tab PO Q4H 02/28/14 acetaminophen-hydrocodone (Chadwick 10/325 oral tablet) 2 tab PO Q6H 03/01/14 albuterol (Proventil HFA 90 mcg/inh inhalation aerosol with adapter) 180 microgram INHALATION QID 02/28/14 bisacodyl (Dulcolax Laxative) 5 mg PO Q24H 03/01/14 dicyclomine (Bentyl) 10 mg PO Q4H 02/28/14 diphenhydrAMINE 25 mg PO Bedtime 02/28/14 diphenhydrAMINE 12.5 mg PO Q6H 03/03/14 hydrALAZINE 10 mg IV Q6H 02/28/14 hydromorphone 0.3 mg IVP Q3H 02/28/14 ketorolac 15 mg IVP Q6H 02/28/14 morphine Sulfate 2 mg IVP Q3H 03/01/14 ondansetron (Zofran) 4 mg IV Q4H 03/01/14 ondansetron (Zofran ODT) 4 mg PO TID 03/03/14 prochlorperazine (Compazine) 10 mg IM Q6H 02/28/14 promethazine + Sodium Chloride 0.9% IV 50 mL 12.5 mg IVPB Q4H 151.5 ml/hr 02/28/14 sodium chloride (Saline Flush 0.9%) 10 ml IVP PRN 02/28/14 temazepam 7.5 mg PO Bedtime 02/28/14 zolpidem 5 mg PO Bedtime One Time Meds: None Continuous Infusions (1): 03/03/14 Sodium Chloride 0.9% IV 1000 mL (NS 1000 mL) 1,000 mL 80 ml/hr Extracted from:Title: Clinical Document Author: Catrachita Penn MD Date: 02/28/14 OPERATIVE REPORT PATIENT NAME: Sneha Carlisle DATE OF PROCEDURE: 02/28/2014 PREOPERATIVE DIAGNOSIS: Left Knee Osteoarthritis. POSTOPERATIVE DIAGNOSIS: Left Knee Osteoarthritis. NAME OF PROCEDURE: Left Total Knee Arthroplasty. SURGEON(s): Dr. Catrachita Penn. HAND TACKER: STERLING [place]. Please note that it was medically necessary to have a knowledgeable administrative personal assistant present for the case. Rosy was present for the entire case and assisted with traction, positioning, retraction, protection of the neurovascular structures, assistance with the implantation of the implant, closure and dressing. ANESTHESIA: General/Adductor. FLUIDS: 1500 mL LR. ESTIMATED BLOOD LOSS: min mL. TOURNIQUET TIME: 79 minutes at 275 mmHg. COMPLICATIONS: None. CONDITION: To the recovery room in stable condition. IMPLANTS: Kellie Triathlon knee Size 4 cruciate retaining femur Size 4 universal tibia 11 mm X3 poly Size 29 mm patella. INDICATIONS FOR PROCEDURE: The patient is a 53 year-old female who has attemtped all conservative measures for left knee osteoarthritis, including oral NSAIDS, oral glucosamine supplementation, steroid injections, hyaluronan injections, brace and/or cane. She understands all the risks and benefits of the procedure and wishes to proceed. DESCRIPTION OF PROCEDURE: Please note the patient had a femoral block in the preoperative area and was then brought to the operating room. The patient was transferred over to the hospital operating room table without any complications. The patient was given general anesthesia and successfully intubated. The patient had SCDs and TEDs placed on the right leg. The patient was given one gram of Vancomycin, had a well-padded left thigh tourniquet applied, and the left leg prepped and draped in standard sterile fashion. All bony prominences were well padded. A time-out was performed and verified the procedure and the limb. The left leg was elevated, exsanguinated, and the tourniquet went up to 275 mmHg. An anterior midline incision was made, dissection down to the extensor mechanism was performed maintaining hemostasis with electrocautery. A medial parapetellar approach was taken, and entrance into the knee was obtained. The patellar fat pad was removed, the patella was everted, and osteophytes were removed in all three compartments. The knee had moderate osteoarthritis noted in all three compartments, the worst was in the medial. The knee ACL and osteophytes were removed, and at that point, our attention was drawn to the tibia. The PCL retractor was placed to protect the neurovascular structures as well as the hailee retractors for the collateral ligaments. An extramedullary tibia guide was placed. The tibial cutting block was secured 2 mm from the low side, and the cut was made without any complications. The tibia was sized to be a size 4, and our attention was drawn to the femur. The intramedullary alignment hernesto was placed, and the distal femoral cutting block was secured on with 8 mm off the distal end. The block was secured on, and 8 mm was cut without any complications. At that point, the femur was sized to be a size 4. The anterior, posterior, and chamfer cuts were made through the four-in-1 cutting block, and osteophytes were removed posteriorly with a curved osteotome as well as the menisci. The trials were placed with the poly and the patient had full extension, great stability, and full flexion. At that point, our attention was drawn to the patella. It was sized, and approximately 9 mm was removed. The three peg holes were made for a size 29 eccentric patella and it was placed and had excellent tracking. The femur had the lug holes drilled and the tibia was prepared with the arrow punch. The knee was copiously irrigated with normal saline and bacitracin. At that point, using third generation cement technique, the cement was mixed, and the tibia followed by the femur followed by the patella were all cemented in without any complications. A trial poly was used and had excellent fit once again, and the final 11 mm poly was placed without any complications. The knee had full extension, full flexion, and great stability. At that point, all wounds were copiously irrigated with normal saline and bacitracin. A #1 Vicryl was used to close the medial parapatellar approach, 2-0 Monocryl for the subcutaneous layer, and zully for the skin. Xeroform, 4x4's, ABD, and annie were applied. The patient was awoken from general anesthesia, successfully extubated, and taken to the recovery room in stable condition. All the needles, laps, and sponge counts were correct at the end of the case. Catrachita Penn MD 03/05/2014 [facility] Extracted from:Title: Clinical Document Author: Catrachita Penn Date: 04/23/2013 Orthopedic Progress Note Daily SUBJECTIVE POD# 2 Percuataneous screw fixation of left hip Doing well except for left knee OBJECTIVE Left Lower Extremity- C/D/I Dressing intact Neurovascularly intact 2+ pulses Patient also had very erythematous area where the femoral block was. She believes it was due to the use of betadine to perform the prep because she is extremely sensitive to iodine. It is not tender or itchy. ASSESSMENT S/P Percutaneous screw fixation left hip PLAN Change dressing daily PT/OT Home after steroid injection to left knee. Under sterile prep, 4cc of marcaine and 2 cc of kenalog (80mg) was injected into left knee. No complications. Patient tolerated well. Labs (Last four charted values) WBC 7.6 (APR 23) 8.7 (APR 22) 6.7 (APR 20) Hgb L 11.7 (APR 23) 12.6 (APR 22) 12.1 (APR 20) Hct L 34.3 (APR 23) 38.1 (APR 22) 36.0 (APR 12) Plt 206 (APR 23) 234 (APR 14) 211 (APR 13) 247 (APR 12) Na 138 (APR 15) 141 (APR 14) 143 (APR 12) K 4.4 (APR 15) 3.5 (APR 14) L 3.4 (APR 12) CO2 25 (APR 15) 26 (APR 14) L 22 (APR 12) Cl 107 (APR 23) 107 (APR 14) H 113 (APR 12) Cr 0.9 (APR 23) 0.8 (APR 22) 0.9 (APR 21) 1.1 (APR 20) BUN 10 (APR 23) 10 (MAR 14) 21 (APR 20) Glucose Random H 123 (APR 23) H 104 (APR 22) H 115 (APR 20) Mg 2.4 (APR 23) 1.8 (APR 22) Ca 8.8 (APR 23) 8.5 (APR 22) L 8.4 (APR 20) PT 13.3 (APR 21) 12.6 (APR 20) INR 1.02 (APR 21) 0.95 (APR 20) PTT 23.9 (APR 21) 27.0 (APR 20) Vitals Signs (last 24 hrs) Last Charted Minimum Maximum Temp 98.6 (APR 23 04:00) 98.6 (APR 23 04:00) 99.0 (APR 22 16:00) Heart Rate 91 (APR 23 04:00) 91 (APR 23 04:00) H 106 (APR 22 16:00) Resp Rate 16 (APR 23 07:35) 16 (APR 22 22:15) 18 (APR 22 12:00) SBP 101 (APR 23 04:00) 91 (APR 22 12:00) 138 (APR 22 16:00) DBP 65 (APR 23 04:00) L 57 (APR 22 12:00) 82 (APR 22 20:00) 04/23/2013 [facility] Plan of Care Plan of Care Date Source Discharge Date 05/23/18 5:02pm Disposition HOME, SELF-CARE Instructions/Education Provided Pyelonephritis Prescriptions See Medication Section Additional Instructions/Education CARDIAC DIET SCHEDULE FOLLOW UP APPOINTMENT WITH DR. OMALLEY IN [address] [place] [address]. TEL: [phone] TO CONTINUE ON HOME HEALTH SERVICES HOME HEALTH SERVICES TO CONTACT DR. OMALLEY AND ARRANGE FOR DURATION OF IV ANTIBIOTIC INFUSION (MERREM). 05/23/2018 [facility] Discharge Date 11/05/17 11:28am Disposition HOME, SELF-CARE Instructions/Education Provided Pyelonephritis Urinary Tract Infection - Women Prescriptions See Medication Section Additional Instructions/Education regular diet and follow up with dr omalley soon FOLLOW UP WITH DR OMALLEY NEXT WEEK ACTIVITY TOLERATED. 11/05/2017 [facility] Social History Social History Date Source No social history information available. 05/23/2018 [facility] Social History ElementQualifiersDate Reported Smoking status: . Are you a: Never Smoker Feb 21, 2016 alcohol no. Feb 21, 2016 02/21/2016 Talita Raymond Social History TypeResponse Substance Abuse Use: None. Sexual Sexually active: No. Exercise 1 Employment/School 2 Alcohol Previous treatment: None. Smoking Status Never smoker; Type: Cigarettes; Ready to change: No; Concerns about tobacco use in household: No; Exposure to Tobacco Smoke None; Cigarette Smoking Last 365 Days No; Reg Smoking Cessation Counseling No entered on: 01/26/18 1No work with PT people S/P ORIF last month.2none 09/19/2014 [facility] Social History TypeResponse Substance Abuse Use: None. Sexual Sexually active: No. Exercise 1 Employment/School 2 Alcohol Previous treatment: None. Smoking Status Never smoker; Type: Cigarettes; Exposure to Tobacco Smoke None; Cigarette Smoking Last 365 Days No; Reg Smoking Cessation Counseling No entered on: 03/13/17 1No work with PT people S/P ORIF last month.2none 09/19/2014 [facility] Family History No Data Provided for This Section Advance Directives Order Name Results Value Date Source Advance Directives Advance Directives Directive Response Recorded Date/Time Does the patient have an advance directive? Yes 05/20/18 7:28pm If yes, is advance directive on file with [facility]? Yes 05/20/18 7:28pm If not on file with [facility] will patient provide a copy? Yes 05/20/18 7:28pm Do you have a Directive to Physician? Yes 05/20/18 5:08pm Do you have a Medical Power of [employer]oth [place] [place]? Yes 05/20/18 5:08pm Do you have an out of hospital Do Not Resuscitate Order? Yes 05/20/18 5:08pm Do you have any special needs we should be aware of? No 05/20/18 4:07pm Do you have a support person here with you today? No 05/20/18 4:07pm Did patient receive Notice of Privacy Practices? Yes 05/20/18 4:08pm Did patient receive patient rights and responsibilities? Yes 05/20/18 4:08pm 05/23/2018 [facility] Advance Directives Advance Directives Directive Response Recorded Date/Time Does the patient have an advance directive? No 10/26/17 9:18pm If yes, is advance directive on file with [facility]? No 10/26/17 9:18pm If not on file with [facility] will patient provide a copy? Yes 10/26/17 9:18pm Do you have a Directive to Physician? No 10/26/17 8:24pm Do you have a Medical Power of Cloth [place]? No 10/26/17 8:24pm Do you have an out of hospital Do Not Resuscitate Order? No 10/26/17 8:24pm Do you have any special needs we should be aware of? No 10/26/17 8:24pm Do you have a support person here with you today? Yes 10/26/17 8:24pm Did patient receive Notice of Privacy Practices? Yes 10/26/17 8:24pm Did patient receive patient rights and responsibilities? Yes 10/26/17 8:24pm 11/05/2017 [facility] Functional Status No Data Provided for This Section
--- OUTSIDE RECORDS SUMMARY | 2018-10-11 16:24 | XMS REPORT | CCD ---
Author Author Auto Generated Organization [facility] Outpatient Imaging [place] Address Unknown Phone Unavailable Care Team Providers Care Russet Repairer Name Role Phone Sujey Penn CP Allergies, Adverse Reactions, Alerts Substance Reaction [...]
--- OUTSIDE RECORDS SUMMARY | 2018-10-11 16:24 | XMS REPORT | CCD ---
Author Author Auto Generated Organization [facility] Outpatient Imaging [place] Address Unknown Phone Unavailable Care Team Providers Care Home Service Technician Name Role Phone Sujey Penn CP Allergies, [...]
--- OUTSIDE RECORDS SUMMARY | 2018-10-11 16:24 | XMS REPORT | Summary of Care ---
Author Organization Unknown Address Unknown Phone Unavailable Encounter Dates Location Diagnoses Discharge Providers Disposition 04/20/2013 [facility] 04/23/2013 [id number] [address] , [facility] Reason for Visit LET FEMORAL NECK FX, FALL FROM STANDING Vital Signs 1 2 3 Most recent to oldest [Reference Range]: 172.72 cm (04/20/2013 12:03:00 [facility] Height 97.6 DegF (04/23/2013 12:30:00 [facility]) 98.7 DegF (04/23/2013 08:30:00 [facility]) 98.6 DegF (04/23/2013 04:00:00 [facility] Temperature Oral [96.4-99.1 DegF] 113 mmHg (04/23/2013 12:30:00 [facility]) 97 mmHg (04/23/2013 08:30:00 [facility] 101 mmHg (04/23/2013 04:00:00 [facility] Systolic Blood Pressure [90-140 mmHg] 68 mmHg (04/23/2013 12:30:00 [facility]) 65 mmHg (04/23/2013 08:30:00 [facility] 65 mmHg (04/23/2013 04:00:00 [facility] Diastolic Blood Pressure [60-90 mmHg] 16 BRMIN (04/23/2013 12:30:00 [facility]) 16 BRMIN (04/23/2013 08:30:00 [facility]) 16 BRMIN (04/23/2013 07:35:00 [facility]) Respiratory Rate [14-20 BRMIN] 83 bpm (04/23/2013 12:30:00 [facility]) 93 bpm (04/23/2013 08:30:00 [facility]) 91 bpm (04/23/2013 04:00:00 [facility] Peripheral Pulse Rate [60-100 bpm] 81 [facility] ([facility] 81.818 kg (04/20/2013 12:03:00 [facility]) 77.273 kg (04/20/2013 05:44:00 [facility]) Weight 27.43 m2 (04/20/2013 12:03:00 [facility]) Body Mass Index Problem List Condition Effective Dates Status Health Status Informant Cataracts(Confirmed) Resolved Chondromalacia of Resolved patella(Confirmed)1 Constipation(Confirm Resolved ed) Depression(Confirmed Resolved ) Fibromyalgia(Confirm Resolved ed) Nausea and Resolved vomiting(Confirmed)2 Osteoporosis(Confirm Resolved ed) Pernicious Resolved anemia(Confirmed) Renal Resolved impairment(Confirmed )3 Scleroderma(Confirme Resolved d) 1bilat 2chronic per pt report 3per pt report Allergies, Adverse Reactions, Alerts Status Substance Reaction Severity Active ciprofloxacin Active codeine Active Demerol HCl Active Dexamethasone Sodium Phosphate Active Imitrex Active Imodium A-D Active iodine Active Keflex Active penicillins Active sulfa drugs Active Talwin Medications Medication Instructions Start Date Stop Date Status acetaminophen 650 mg, 20.3 mL, Route: PO, Drug 04/20/2013 04/23/2013 Discontinued form: LIQ, Q4H, Dosing Weight 77.273, kg, PRN Pain 1-3/Temp > 100.4 F, Start date: 04/20/13 12:02:00, Duration: 30 day, Stop date: 05/20/13 12:01:00 Max uinijiienhqzd=8781qm/day (4 gm/day). (Same as: Tylenol) acetaminophen-hydroc 1 tab, Route: PO, Drug Form: TAB, 04/21/2013 04/23/2013 Discontinued odone 325 mg-10 mg Dosing Weight 81, kg, Q4H, PRN Pain oral tablet Score 4-6, Start date: 04/21/13 17:39:00, Duration: 30 day, Stop date: 05/21/13 17:38:00 Do not exceed 4gm/day of acetaminophen. (Same as: [place] 325/10) acetaminophen-hydroc 1 tab, Route: PO, Drug Form: TAB, 04/21/2013 04/23/2013 Discontinued odone 325 mg-5 mg Dosing Weight 81, kg, Q4H, PRN Pain oral tablet Score 4-6, Start date: 04/21/13 17:39:00, Duration: 30 day, Stop date: 05/21/13 17:38:00 (Same as: [place] 325/5) Do not exceed 4gm/day of acetaminophen. Al hydroxide/Mg 30 ml, Route: PO, Drug Form: SUSP, 04/21/2013 04/23/2013 Discontinued hydroxide/simethicon Dosing Weight 81, kg, Q4H, PRN e 200 mg-200 mg-20 Indigestion, Start date: 04/21/13 mg/5 mL oral 17:39:00, Duration: 30 day, Stop suspension date: 05/21/13 17:38:00 (aluminum hydroxide-magnesium hyd-simethicone [phone]/5ml 30 ml ud MACI) Ambien 5 mg, 1 tab, Route: PO, Drug form: 04/20/2013 04/23/2013 Discontinued TAB, Bedtime, Dosing Weight 81.818, kg, PRN Insomnia, Start date: 04/20/13 23:18:00, Duration: 30 day, Stop date: 05/20/13 23:17:00 (Same As: Ambien) bupivacaine 0.5% 10 mL, Route: intra-ARTICULAR, Drug 04/23/2013 04/23/2013 Completed Form: INJ, Dosing Weight 81, kg, ONCE, Start date: 04/23/13 9:00:00, Stop date: 04/23/13 9:00:00 Preservative free. (Same As: Marcaine-MPF) Cymbalta 120 mg, 4 cap, Route: PO, Drug 04/22/2013 04/23/2013 Discontinued form: DRC, Bedtime, Dosing Weight 81, kg, Start date: 04/22/13 21:00:00, Duration: 30 day, Stop date: 05/21/13 21:00:00 Non-Formulary Drug. (Same as: Cymbalta) (Do Not Crush) Cymbalta 30 mg oral 150 mg=5 cap, PO, Bedtime, 0 04/20/2013 Ordered delayed release Refill(s) capsule D5W 1/2NS + KCL 1,000 mL, Rate: 100 ml/hr, Infuse 04/22/2013 04/23/2013 Discontinued 20mEq/L 1000ml over: 10 hr, Route: IV, Dosing (Premix) 1,000 mL Weight 81 kg, Total Volume: 1,000, Start date: 04/22/13 13:47:00, Duration: 30 day, Stop date: 05/22/13 13:46:00 PREMIX IV - Do Not Alter D5W 1/2NS + KCL 1,000 mL, Rate: 50 ml/hr, Infuse 04/21/2013 04/21/2013 Discontinued 20mEq/L 1000ml over: 20 hr, Route: IV, Dosing (Premix) 1,000 mL Weight 81 kg, Total Volume: 1,000, Start date: 04/21/13 8:46:00, Duration: 30 day, Stop date: 05/21/13 8:45:00 PREMIX IV - Do Not Alter D5W 1/2NS + KCL 1,000 mL, Rate: 75 ml/hr, Infuse 04/21/2013 04/21/2013 Discontinued 20mEq/L 1000ml over: 13.3 hr, Route: IV, Dosing (Premix) 1,000 mL Weight 81 kg, Total Volume: 1,000, Start date: 04/21/13 17:39:00, Duration: 30 day, Stop date: 05/21/13 17:38:00 PREMIX IV - Do Not Alter Dilaudid 1 mg, 1 mL, Route: IV, Drug form: 04/20/2013 04/21/2013 Discontinued INJ, Q3H, Dosing Weight 81.818, kg, PRN Pain, Start date: 04/20/13 14:16:00, Duration: 30 day, Stop date: 05/20/13 14:15:00 Diovan 80 mg oral 160 mg=2 tab, PO, Bedtime, 0 04/20/2013 Ordered tablet Refill(s) diphenhydrAMINE 12.5 mg, 0.5 tab, Route: PO, Drug 04/21/2013 04/23/2013 Discontinued form: TAB, Q6H, Dosing Weight 81, kg, PRN Itching, Start date: 04/21/13 17:39:00, Duration: 30 day, Stop date: 05/21/13 17:38:00 diphenhydrAMINE 25 mg, 1 tab, Route: PO, Drug form: 04/21/2013 04/23/2013 Discontinued TAB, Bedtime, Dosing Weight 81, kg, PRN Insomnia, Start date: 04/21/13 17:39:00, Duration: 30 day, Stop date: 05/21/13 17:38:00 docusate sodium 100 100 mg, 1 cap, Route: PO, Drug 04/22/2013 04/23/2013 Discontinued mg oral capsule form: CAP, BID, Dosing Weight 81, kg, Start date: 04/22/13 9:00:00, Duration: 30 day, Stop date: 05/21/13 17:00:00 (Same as: Colace) (Do Not Crush) Dulcolax Laxative 5 mg, 1 tab, Route: PO, Drug form: 04/21/2013 04/23/2013 Discontinued ECTAB, Q24H, Dosing Weight 81, kg, PRN Constipation, Start date: 04/21/13 17:39:00, Duration: 30 day, Stop date: 05/21/13 17:38:00 (Same As: Dulcolax, Correctol) (Do Not Crush) "Do Not Crush" enoxaparin 40 mg, 0.4 mL, Route: SUB-Q, Drug 04/22/2013 04/23/2013 Discontinued form: INJ, [id number], Dosing Weight 81, kg, Start date: 04/22/13 6:00:00, Duration: 30 day, Stop date: 05/21/13 6:00:00 (Same as: Lovenox) fentanyl 25 microgram, Route: IVP, Q5Min, 04/21/2013 04/21/2013 Discontinued Dosing Weight 81, kg, PRN Pain Score 4-6, Start date: 04/21/13 17:14:00, Duration: 4 doses or times, Stop date: Limited # of times flumazenil 0.2 mg, Route: IVP, PRN, Dosing 04/21/2013 04/21/2013 Discontinued Weight 81, kg, PRN Benzodiazepine Reversal, Initial dose, Start date: 04/21/13 17:14:00, Duration: 30 day, Stop date: 05/21/13 17:13:00 hydrALAZINE 10 mg, Route: IVP, Q20Min, Dosing 04/21/2013 04/21/2013 Discontinued Weight 81, kg, PRN Elevated BP, Start date: 04/21/13 17:14:00, Duration: 2 doses or times, Stop date: Limited # of times hydromorphone 1 mg, 1 mL, Route: IV, Drug form: 04/21/2013 04/23/2013 Discontinued INJ, Q4H, Dosing Weight 81, kg, PRN Pain Score 4-6, Start date: 04/21/13 21:55:00, Duration: 30 day, Stop date: 05/21/13 21:54:00 hydromorphone 0.5 mg, Route: IVP, Q5Min, Dosing 04/21/2013 04/21/2013 Discontinued Weight 81, kg, PRN Pain Score 7-10, Start date: 04/21/13 17:14:00, Duration: 4 doses or times, Stop date: Limited # of times influenza virus 0.5 ml, Route: IM, Drug Form: SUSP, 04/21/2013 04/22/2013 Deleted vaccine, inactivated Daily, Start date: 04/21/13 9:00:00, Duration: 1 doses or times, Stop date: 04/21/13 9:00:00 (Same as: Fluzone, Fluvirin) Shake well prior to administration Kenalog-40 80 mg, 2 mL, Route: 04/22/2013 04/22/2013 Deleted intra-ARTICULAR, Drug form: INJ, ONCE, Dosing Weight 81, kg, Priority: NOW, Start date: 04/22/13 8:20:00, Stop date: 04/22/13 8:20:00 "Preservative Free" Kenalog-40 80 mg, 2 mL, Route: 04/23/2013 04/23/2013 Completed intra-ARTICULAR, Drug form: INJ, ONCE, Dosing Weight 81, kg, Priority: Routine, Start date: 04/23/13 9:00:00, Stop date: 04/23/13 9:00:00 "Preservative Free" Klor-Con 40 mEq, 2 tab, Route: PO, Drug 04/22/2013 04/22/2013 Completed form: ERTAB, ONCE, Dosing Weight 81, kg, Priority: NOW, Start date: 04/22/13 12:44:00, Stop date: 04/22/13 12:44:00 (Same as: K-Dur 20)"Do Not Crush" With food and full glass of water Lactated Ringers 1,000 mL, Rate: 25 ml/hr, Infuse 04/21/2013 04/21/2013 Discontinued Injection IV 1000 mL over: 40 hr, Route: IV, Dosing Weight 81 kg, Total Volume: 1,000, Start date: 04/21/13 15:20:00, Duration: 30 day, Stop date: 05/21/13 15:19:00 LORazepam 1 mg, 1 tab, Route: PO, Drug form: 04/20/2013 04/23/2013 Discontinued TAB, Bedtime, Dosing Weight 81.818, kg, PRN Insomnia, Start date: 04/20/13 23:21:00, Duration: 30 day, Stop date: 05/20/13 23:20:00 (Same as: Ativan) magnesium sulfate 2 1 gm, 50 mL, Route: IVPB, Drug 04/22/2013 04/22/2013 Completed gm in Water 50 ml form: INJ, ONCE, Dosing Weight 81, kg, Start date: 04/22/13 12:44:00, Duration: 2 hr, Stop date: 04/22/13 12:44:00 Marcaine HCl 10 mL, Route: intra-ARTICULAR, Drug 04/22/2013 04/22/2013 Deleted Form: INJ, Dosing Weight 81, kg, ONCE, Start date: 04/22/13 8:21:00, Stop date: 04/22/13 8:21:00 Preservative free. (Same As: Marcaine-MPF) metoprolol 1 mg, Route: IVP, Q5Min, Dosing 04/21/2013 04/21/2013 Discontinued Weight 81, kg, PRN Other -See Comment, Start date: 04/21/13 17:14:00, Duration: 5 doses or times, Stop date: Limited # of times mirtazapine 45 mg 90 mg=2 tab, PO, Bedtime, 0 04/20/2013 Ordered oral tablet, Refill(s) disintegrating morphine Sulfate 4 mg, 2 mL, Route: IVP, Drug form: 04/20/2013 04/20/2013 Completed INJ, ONCE, Dosing Weight 77.273, kg, Priority: STAT, Start date: 04/20/13 8:38:00, Stop date: 04/20/13 8:38:00 (Same as:MORPhine Sulfate) morphine Sulfate 2 mg, 1 mL, Route: IVP, Drug form: 04/21/2013 04/23/2013 Discontinued INJ, Q3H, Dosing Weight 81, kg, PRN Pain Score 1-3, Start date: 04/21/13 17:39:00, Duration: 30 day, Stop date: 05/21/13 17:38:00 (Same as:MORPhine Sulfate) morphine Sulfate 2 mg, 1 mL, Route: IVP, Drug form: 04/20/2013 04/20/2013 Discontinued INJ, Q3H, Dosing Weight 77.273, kg, PRN Pain Score 4-6, Start date: 04/20/13 12:02:00, Duration: 30 day, Stop date: 05/20/13 12:01:00 (Same as:MORPhine Sulfate) morphine Sulfate 4 mg, 2 mL, Route: IVP, Drug form: 04/20/2013 04/20/2013 Completed INJ, ONCE, Dosing Weight 77.273, kg, Priority: STAT, Start date: 04/20/13 6:11:00, Stop date: 04/20/13 6:11:00 (Same as:MORPhine Sulfate) naloxone 0.04 mg, Route: IVP, Q2MIN, Dosing 04/21/2013 04/21/2013 Discontinued Weight 81, kg, PRN Narcotic Reversal, Start date: 04/21/13 17:14:00, Duration: 8 doses or times, Stop date: Limited # of times Neurontin 100 mg 100 mg, 1 cap, Route: PO, Drug 04/21/2013 04/23/2013 Discontinued oral capsule form: CAP, QID, Dosing Weight 81, kg, Start date: 04/21/13 13:00:00, Duration: 30 day, Stop date: 05/21/13 9:00:00 (Same as: Neurontin) [place] 10/325 oral 1 tab, Route: PO, Dosing Weight 04/21/2013 04/21/2013 Discontinued tablet 81.818, kg, ONCE, Start date: 04/21/13 17:14:00, Stop date: 04/21/13 17:14:00 [place] 10/325 oral 1 tab, PO, Q6H, for pain, # 60 tab, 04/23/2013 Ordered tablet 0 Refill(s) ondansetron 4 mg, 2 mL, Route: IVP, Drug form: 04/21/2013 04/23/2013 Discontinued INJ, Q6H, Dosing Weight 81, kg, PRN Nausea & Vomiting, Start date: 04/21/13 17:39:00, Duration: 30 day, Stop date: 05/21/13 17:38:00 (Same as: Zofran) ondansetron 4 mg, 2 mL, Route: IVP, Drug form: 04/20/2013 04/21/2013 Discontinued INJ, Q8H, Dosing Weight 77.273, kg, PRN Nausea & Vomiting, Start date: 04/20/13 12:02:00, Duration: 30 day, Stop date: 05/20/13 12:01:00 (Same as: Zofran) ondansetron 4 mg, Route: IVP, ONCE, Dosing 04/21/2013 04/21/2013 Completed Weight 81, kg, PRN Nausea & Vomiting, Start date: 04/21/13 17:14:00 OXYcodone 5 mg, Route: PO, Drug form: TAB, 04/21/2013 04/21/2013 Discontinued Q4H, Dosing Weight 81, kg, PRN Pain Score 4-6, Start date: 04/21/13 17:14:00, Duration: 30 day, Stop date: 05/21/13 17:13:00 pneumococcal 0.5 ml, Route: IM, Drug Form: INJ, 04/21/2013 04/21/2013 Completed 23-valent vaccine Daily, Start date: 04/21/13 9:00:00, Duration: 1 doses or times, Stop date: 04/21/13 9:00:00 (Same as: Pneumovax 23) Refrigerate ropivacaine 0.2% in Dosing: Per Nerve Block Dosing 04/21/2013 04/23/2013 Discontinued NS - site 1 400 mL Order, Route: NERVE BLOCK, Start date: 04/21/13 18:39:00 400 mL, Drug Form: INJ, Dosing Weight 81, kg, Duration: 30 day, Stop date: 05/21/13 18:38:00 Final concentration: Ropivacaine 0.2% 400 ml Saline Flush 0.9% 5 ml, Route: IVP, Drug Form: INJ, 04/21/2013 04/23/2013 Discontinued Dosing Weight 81, kg, PRN, PRN Line Flush, Start date: 04/21/13 17:39:00, Duration: 30 day, Stop date: 05/21/13 17:38:00 (Same as: BD Posiflush) Sodium Chloride 0.9% 500 mL, Rate: 500 ml/hr, Infuse 04/20/2013 04/20/2013 Completed (Bolus) IV 500 mL over: 1 hr, Route: IV, Dosing Weight 77.273 kg, Total Volume: 500, Priority: STAT, Start date: 04/20/13 8:39:00, Duration: 1 doses or times, Stop date: 04/20/13 9:38:00, Bolus Dose Bolus Dose Topamax 200 mg, 2 tab, Route: PO, Drug 04/21/2013 04/23/2013 Discontinued form: TAB, Bedtime, Dosing Weight 81, kg, Start date: 04/21/13 21:00:00, Duration: 30 day, Stop date: 05/20/13 21:00:00 (Same As: Topamax)"Do Not Crush" Topamax 50 mg oral 200 mg=4 tab, PO, Bedtime, 0 04/20/2013 Ordered tablet Refill(s) vancomycin 1.25 gm, 250 mL, Route: IVPB, Drug 04/20/2013 04/21/2013 Completed form: INJ, ONCALL, Dosing Weight 81.818, kg, Start date: 04/20/13 18:00:00, Duration: 30 day, Stop date: 05/20/13 17:59:00 Same as: Vancocin-NS (premixed) vancomycin (SCIP) 1 gm, 200 mL, Route: IVPB, Drug 04/22/2013 04/22/2013 Completed form: INJ, [id number], Dosing Weight 81, kg, Start date: 04/22/13 4:00:00, Duration: 1 doses or times, Stop date: 04/22/13 4:00:00, Pharmacy to adjust dose for renal function Pharmacy to adjust dose for renal function Vitamin B12 1000 1,000 microgram=1 mL, IM, QFri, 0 04/20/2013 Ordered mcg/mL injectable Refill(s) solution Xarelto 10 mg oral =10 mg, PO, Daily, # 50 tab, 0 04/23/2013 Ordered tablet Refill(s) Zofran 4 mg, 2 mL, Route: IVP, Drug form: 04/20/2013 04/20/2013 Completed INJ, ONCE, Dosing Weight 77.273, kg, Priority: STAT, Start date: 04/20/13 6:12:00, Stop date: 04/20/13 6:12:00 (Same as: Zofran) Zofran ODT 4 mg oral 4 mg=1 tab, PO, TID, as needed for 04/20/2013 Ordered tablet, nausea/vomiting, 0 Refill(s) disintegrating zolpidem 5 mg oral 5 mg=1 tab, PO, Bedtime, 0 04/20/2013 Ordered tablet Refill(s) Results BLOOD BANK RESULTS 1 2 3 Most recent to oldest [Reference Range]: O POS *Unknown* (04/20/2013 21:34:00 [facility]) ABO/Rh Positive 1 (04/20/2013 21:34:00 [facility]) Antibody Scrn Anti-E *Unknown* (04/21/2013 01:53:00 [facility]) AB Int 1Result Comment: 04/20/2013 23:54 [id number] "Significant Findings called to mariana okeffe__at 04/20/2013 23:52__by jw__.Read Back OK." ELECTROLYTES 1 2 3 Most recent to oldest [Reference Range]: 138 mEq/L (04/23/2013 07:35:00 [facility] 141 mEq/L (04/22/2013 06:00:00 [facility]) 143 mEq/L (04/20/2013 06:40:00 [facility]) Sodium Lvl [135-145 mEq/L] 4.4 mEq/L (04/23/2013 07:35:00 [facility]) 3.5 mEq/L (04/22/2013 06:00:00 [facility]) 3.4 mEq/L *LOW* (04/20/2013 06:40:00 [facility]) Potassium Lvl [3.5-5.1 mEq/L] 107 mEq/L (04/23/2013 07:35:00 [facility] 107 mEq/L (04/22/2013 06:00:00 [facility]) 113 mEq/L *HI* (04/20/2013 06:40:00 [facility]) Chloride Lvl [95-109 mEq/L] 25 mEq/L (04/23/2013 07:35:00 [facility]) 26 mEq/L (04/22/2013 06:00:00 [facility]) 22 mEq/L *LOW* (04/20/2013 06:40:00 [facility]) CO2 [24-32 mEq/L] 10.4 mEq/L (04/23/2013 07:35:00 [facility]) 11.5 mEq/L (04/22/2013 06:00:00 [facility]) 11.4 mEq/L (04/20/2013 06:40:00 [facility]) AGAP [10.0-20.0 mEq/L] CHEM PANEL 1 2 3 Most recent to oldest [Reference Range]: 0.9 mg/dL (04/23/2013 07:35:00 [facility]) 0.8 mg/dL (04/22/2013 06:00:00 [facility]) 0.9 mg/dL (04/21/2013 22:00:00 [facility]) Creatinine Lvl [0.5-1.4 mg/dL] 73 mL/min/1.73m2 2 *NA* (04/23/2013 07:35:00 [facility]) 84 mL/min/1.73m2 3 *NA* (04/22/2013 06:00:00 [facility]) 73 mL/min/1.73m2 4 *NA* (04/21/2013 22:00:00 [facility]) eGFR 10 mg/dL (04/23/2013 07:35:00 [facility]) 10 mg/dL (04/22/2013 06:00:00 [facility]) 21 mg/dL (04/20/2013 06:40:00 [facility]) BUN [7-22 mg/dL] 19 (04/20/2013 06:40:00 [facility] B/C Ratio [6-25] 123 mg/dL 5 *HI* (04/23/2013 07:35:00 [facility]) 104 mg/dL 6 *HI* (04/22/2013 06:00:00 [facility]) 115 mg/dL 7 *HI* (04/20/2013 06:40:00 [facility]) Glucose Lvl [70-99 mg/dL] 6.4 g/dL (04/20/2013 06:40:00 [facility]) Total Protein [6.4-8.4 g/dL] 3.3 g/dL *LOW* (04/20/2013 06:40:00 [facility]) Albumin Lvl [3.5-5.0 g/dL] 3.1 g/dL (04/20/2013 06:40:00 [facility] Globulin [2.0-4.0 g/dL] 1.1 (04/20/2013 06:40:00 [facility] A/G Ratio [0.7-1.6] 8.8 mg/dL (04/23/2013 07:35:00 [facility]) 8.5 mg/dL (04/22/2013 06:00:00 [facility]) 8.4 mg/dL *LOW* (04/20/2013 06:40:00 [facility]) Calcium Lvl [8.5-10.5 mg/dL] 2.4 mg/dL (04/23/2013 07:35:00 [facility] 1.8 mg/dL (04/22/2013 06:00:00 [facility]) Magnesium Lvl [1.8-2.4 mg/dL] 29 unit/L (04/20/2013 06:40:00 [facility]) ALT [0-65 unit/L] 39 unit/L *HI* (04/20/2013 06:40:00 [facility]) AST [0-37 unit/L] 160 unit/L *HI* (04/20/2013 06:40:00 [facility]) Alk Phos [39-136 unit/L] 0.2 mg/dL (04/20/2013 06:40:00 [facility] Bili Total [0.2-1.3 mg/dL] 2Result Comment: The eGFR is calculated using [...] be mul tiplied by the estimated BMI. 3Result Comment: The eGFR is calculated using the [...] be mul tiplied by the estimated BMI. 4Result Comment: The eGFR is calculated using the [...] be mul tiplied by the estimated BMI. 5Interpretive Data: Adult reference range values reflect the clinical guidelines of the [place] [employer]. 6Interpretive Data: Adult reference range values reflect the clinical guidelines of the [place] [employer]. 7Interpretive Data: Adult reference range values reflect the clinical guidelines of the [place] [employer]. URINE CHEM 1 2 3 Most recent to oldest [Reference Range]: 193.8 mg/dL 8 *NA* (04/20/2013 09:00:00 [facility]) U Creatinine 54.6 mg/dL 9 *NA* (04/20/2013 09:00:00 [facility]) U Protein 0.3 *NA* (04/20/2013 09:00:00 [facility]) U Prot/Creat 8Interpretive Data: No established reference ranges. 9Interpretive Data: No established reference ranges. URINE AND STOOL 1 2 3 Most recent to oldest [Reference Range]: Clear (04/20/2013 09:00:00 [facility]) UA Turbidity [Clear] Yellow *NA* (04/20/2013 09:00:00 [facility]) UA Color [Yellow] 5.0 (04/20/2013 09:00:00 [facility]) UA pH [5.0-8.0] 1.030 (04/20/2013 09:00:00 [facility]) UA Spec Grav [<=1.030] Negative mg/dL *NA* (04/20/2013 09:00:00 [facility]) UA Glucose [Negative mg/dL] Negative (04/20/2013 09:00:00 [facility]) UA Blood [Negative] Negative mg/dL *NA* (04/20/2013 09:00:00 [facility]) UA Ketones [Negative mg/dL] Negative mg/dL (04/20/2013 09:00:00 [facility]) UA Protein [Negative mg/dL] 2.0 mg/dL *HI* (04/20/2013 09:00:00 [facility]) UA Urobilinogen [0.1-1.0 mg/dL] Small *ABN* (04/20/2013 09:00:00 [facility]) UA Bili [Negative] Trace *ABN* (04/20/2013 09:00:00 [facility]) UA Leuk Est [Negative] Negative (04/20/2013 09:00:00 [facility]) UA Nitrite [Negative] 3 /HPF (04/20/2013 09:00:00 [facility]) UA WBC [0-5 /HPF] 2 /HPF (04/20/2013 09:00:00 [facility]) UA RBC [0-2 /HPF] None Seen *NA* (04/20/2013 09:00:00 [facility]) UA Sq Epi HEMATOLOGY 1 2 3 Most recent to oldest [Reference Range]: 7.6 K/CMM (04/23/2013 07:35:00 [facility]) 8.7 K/CMM (04/22/2013 11:00:37 [facility]) 6.7 K/CMM (04/20/2013 06:40:00 [facility]) WBC [3.7-10.4 K/CMM] 3.96 M/CMM *LOW* (04/23/2013 07:35:00 [facility]) 4.41 M/CMM (04/22/2013 11:00:37 [facility]) 4.14 M/CMM *LOW* (04/20/2013 06:40:00 [facility]) RBC [4.20-5.40 M/CMM] 11.7 g/dL *LOW* (04/23/2013 07:35:00 [facility] 12.6 g/dL (04/22/2013 11:00:37 [facility] 12.1 g/dL (04/20/2013 06:40:00 [facility] Hgb [12.0-16.0 g/dL] 34.3 % *LOW* (04/23/2013 07:35:00 [facility]) 38.1 % (04/22/2013 11:00:37 [facility]) 36.0 % (04/20/2013 06:40:00 [facility] Hct [36.0-48.0 %] 86.5 fL (04/23/2013 07:35:00 [facility]) 86.3 fL (04/22/2013 11:00:37 [facility]) 87.0 fL ([facility] MCV [81.0-99.0 fL] 29.4 pg (04/23/2013 07:35:00 [facility]) 28.7 pg (04/22/2013 11:00:37 [facility]) 29.2 pg (04/20/2013 06[facility]40[facility] MCH [27.0-31.0 pg] 34.0 g/dL (04/23/2013 07:35:00 [facility]) 33.2 g/dL (04/22/2013 11:00:[facility] 33.5 g/dL (04/20/2013 06[facility]40[facility] MCHC [32.0-36.0 g/dL] 14.0 % (04/23/2013 07:35:00 [facility]) 13.8 % (04/22/2013 11:00:[facility] 14.2 % (04/20/2013 06[facility]40[facility] RDW [11.5-14.5 %] 206 K/CMM (04/23/2013 07:35:00 [facility]) 234 K/CMM (04/22/2013 11:00[facility] 211 K/CMM (04/21/2013 22:00:00 [facility]) Platelet [133-450 K/CMM] 7.9 fL (04/23/2013 07:35[facility] 8.1 fL (04/22/2013 11:00:[facility] 7.8 fL (04/20/2013 06[facility]40[facility] MPV [7.4-10.4 fL] 74.5 % (04/23/2013 07:35:[facility] 77.9 % *HI* (04/22/2013 11:00:37 [facility]) 77.6 % *HI* (04/20/2013 06[facility]40[facility] Segs [45.0-75.0 %] 14.2 % *LOW* (04/23/2013 07:35:00 [facility]) 12.0 % *LOW* (04/22/2013 11:00:37 [facility]) 14.3 % *LOW* (04/20/2013 06[facility]40[facility] Lymphocytes [20.0-40.0 %] 8.0 % (04/23/2013 07:35:00 [facility]) 6.7 % (04/22/2013 11:00:37 [facility]) 5.5 % (04/20/2013 [facility]40[facility] Monocytes [2.0-12.0 %] 2.9 % (04/23/2013 07:35:00 [facility]) 2.8 % (04/22/2013 11:00:37 [facility]) 2.3 % (04/20/2013 06:40:00 [facility]) Eosinophils [0.0-4.0 %] 0.4 % (04/23/2013 07:35:00 [facility]) 0.6 % (04/22/2013 11:00:37 [facility]) 0.3 % (04/20/2013 06:40:00 [facility]) Basophils [0.0-1.0 %] 5.6 K/CMM (04/23/2013 07:35:00 [facility]) 6.8 K/CMM (04/22/2013 11:00:37 [facility]) 5.2 K/CMM (04/20/2013 06:40:00 [facility]) Segs-Bands # [1.5-8.1 K/CMM] 1.1 K/CMM (04/23/2013 07:35:00 [facility]) 1.0 K/CMM (04/22/2013 11:00:37 [facility]) 1.0 K/CMM (04/20/2013 06:40:00 [facility]) Lymphocytes # [1.0-5.5 K/CMM] 0.6 K/CMM (04/23/2013 07:35:00 [facility]) 0.6 K/CMM (04/22/2013 11:00:37 [facility]) 0.4 K/CMM (04/20/2013 06:40:00 [facility]) Monocytes # [0.0-0.8 K/CMM] 0.2 K/CMM (04/23/2013 07:35:00 [facility]) 0.2 K/CMM (04/22/2013 11:00:37 [facility]) 0.2 K/CMM (04/20/2013 06:40:00 [facility]/[place]) Eosinophils # [0.0-0.5 K/CMM] 0.0 K/CMM (04/23/2013 07:35:00 [facility]) 0.1 K/CMM (04/22/2013 11:00:37 [facility]) 0.0 K/CMM (04/20/2013 06:40:00 [facility]) Basophils # [0.0-0.2 K/CMM] 13.3 seconds (04/21/2013 22:00:00 [facility]) 12.6 seconds (04/20/2013 06:40:00 [facility]) PT [12.0-14.7 seconds] 1.02 10 (04/21/2013 22:00:00 [facility]) 0.95 11 (04/20/2013 06:40:00 [facility]) INR [0.85-1.17] 23.9 seconds 12 (04/21/2013 22:00:00 [facility]) 27.0 seconds 13 (04/20/2013 06:40:00 [facility]) PTT [22.9-35.8 seconds] 10Interpretive Data: RECOMMENDED RANGES FOR PROTIME INR: 2.0-3.0 for most medical and surgical thromboembolic states. 2.5-3.5 for artificial heart valves and recurrent embolism. INR SHOULD BE USED ONLY FOR PATIENTS ON STABLE ANTICOAGULANT THERAPY. 11Interpretive Data: RECOMMENDED RANGES FOR PROTIME INR: 2.0-3.0 for most medical and surgical thromboembolic states. 2.5-3.5 for artificial heart valves and recurrent embolism. INR SHOULD BE USED ONLY FOR PATIENTS ON STABLE ANTICOAGULANT THERAPY. 12Interpretive Data: Heparin Therapeutic Range: 57 - 92 Seconds 13Interpretive Data: Heparin Therapeutic Range: 57 - 92 Seconds Medications Administered During Your Visit No data available for this section Immunizations Vaccine Date Refusal Reason influenza virus vaccine, inactivated 04/22/2013 influenza virus vaccine, inactivated 04/21/2013 influenza virus vaccine, inactivated 04/21/2013 pneumococcal 23-valent vaccine 04/22/2013 Assessment and Plan Extracted from: Title: Clinical Document Author: Sujey Penn Date: 04/23/2013 Orthopedic Progress Note Daily [...] well. Labs (Last four charted values) WBC 7.6(APR 23)8.7(APR 14)6.7(APR 20) Hgb L 11.7(APR 15)12.6(APR 14)12.1(APR 12) Hct L 34.3(APR 15)38.1(APR 14)36.0(APR 12) Plt 206(APR 15)234(APR 14)211(APR 13)247(APR 12) Na 138(APR 15)141(APR 14)143(APR 20) K 4.4(APR 15)3.5(APR 22)L 3.4(APR 20) CO2 25(APR 23)26(APR 14)L 22(APR 12) Cl 107(APR 23)107(APR 22)H 113(APR 20) Cr 0.9(APR 23)0.8(APR 22)0.9(APR 21)1.1(APR 20) BUN 10(APR 15)10(APR 14)21(APR 20) Glucose Random H 123(APR 23)H 104(APR 14)H 115(APR 20) Mg 2.4(APR 15)1.8(APR 14) Ca 8.8(APR 15)8.5(APR 14)L 8.4(APR 20) PT 13.3(APR 21)12.6(APR 20) INR 1.02(APR 21)0.95(APR 20) PTT 23.9(APR 21)27.0(APR 20) Vitals Signs (last 24 hrs) Last Charted Minimum Maximum Temp 98.6 (APR 23 04:00)98.6 (APR 23 04:00)99.0 (APR 22 16:00) Heart Rate 91 (APR 23 04:00)91 (APR 23 04:00)H 106 (APR 22 16:00) Resp Rate 16 (APR 23 07:35)16 (APR 22 22:15)18 (APR 22 12:00) SBP 101 (APR 23 04:00)91 (APR 22 12:00)138 (APR 22 16:00) DBP 65 (APR 23 04:00)L 57 (APR 22 12:00)82 (APR 22 20:00)
--- OUTSIDE RECORDS SUMMARY | 2018-10-11 16:24 | XMS REPORT | CCD ---
Author Author Auto Generated Organization [facility] Out[facility] [place] Address Unknown Phone Unavailable Care Team Providers Care Hand Brush Filler Name Role Phone Sujey Penn CP Allergies, [...]
--- OUTSIDE RECORDS SUMMARY | 2018-10-11 16:24 | XMS REPORT | CCD ---
Author Author Auto Generated Organization [facility] Outpatient [facility] [place] Address Unknown Phone Unavailable Care Team Providers Care Export Sales Manager Name Role Phone Sujey Penn CP Allergies, [...]
--- OUTSIDE RECORDS SUMMARY | 2018-10-11 16:24 | XMS REPORT | CCD ---
Author Author Auto Generated Organization [facility] Outpatient [facility] [place] Address Unknown Phone Unavailable Care Team Providers Care Eyedotter Name Role Phone Sujey Penn CP Allergies, [...]
--- OUTSIDE RECORDS SUMMARY | 2018-10-11 16:24 | XMS REPORT | CCD ---
Author Author Auto Generated Organization [facility] Outpatient Imaging [place] Address Unknown Phone Unavailable Care Team Providers Care Receivables Specialist Name Role Phone Sujey Penn CP Allergies, [...]
--- OUTSIDE RECORDS SUMMARY | 2018-10-11 16:24 | XMS REPORT | Summary of Care ---
Author Author [facility] Organization [facility] Address Unknown Phone Unavailable Encounter RICKI Candelario(GRADY) [id number] Date(s): 08/29/14 - 08/31/14 [facility] [address] [place] [address]- Discharge Disposition: Home Attending Physician: Sujey Penn MD Admitting Physician: Sujey Penn MD Referring Physician: Sujey Penn MD Vital Signs 1 2 3 Most recent to oldest [Reference Range]: 162.56 cm (08/29/14 9:58 PM) 162.56 cm (08/17/14 12:53 PM) Height 1 2 3 Most recent to oldest [Reference Range]: 97.3 DegF (08/31/14 1:08 PM) 97.8 DegF (08/31/14 8:04 AM) 97.9 DegF (08/31/14 4:13 AM) Temperature Oral [96.4-99.1 DegF] 1 2 3 Most recent to oldest [Reference Range]: 96/50 mmHg (08/31/14 1:08 PM) 98/65 mmHg (08/31/14 8:04 AM) 107/69 mmHg (08/31/14 4:13 AM) Blood Pressure [90-140/60-90 mmHg] 1 2 3 Most recent to oldest [Reference Range]: 14 BRMIN (08/31/14 1:08 PM) 16 BRMIN (08/31/14 8:35 AM) 14 BRMIN (08/31/14 8:04 AM) Respiratory Rate [14-20 BRMIN] 1 2 3 Most recent to oldest [Reference Range]: 93 bpm (08/31/14 1:08 PM) 98 bpm (08/31/14 8:04 AM) 92 bpm (08/31/14 4:13 AM) Peripheral Pulse Rate [60-100 bpm] 1 2 3 Most recent to oldest [Reference Range]: 59.002 kg (08/29/14 9:58 PM) 65.455 kg (08/17/14 12:53 PM) Weight 1 2 3 Most recent to oldest [Reference Range]: 22.33 m2 (08/29/14 9:58 PM) 24.77 m2 (08/17/14 12:53 PM) Body Mass Index Problem List Condition Effective Dates Status Health Status Informant Abdominal pain1 01/24/14 Active Abnormal coagulation Active time(Confirmed) Antiphospholipid Active syndrome(Confirmed) Barretts Active esophagus(Confirmed) Cataracts(Confirmed) Active Chondromalacia of Active patella(Confirmed)2 Chronic Active nausea(Confirmed) Constipation(Confirm Active ed) Depression(Confirmed Active ) Depression(Confirmed Active ) Dysphagia(Confirmed) Active Dysphagia(Confirmed) Resolved Fibromyalgia(Confirm Active ed) Hypertension(Confirm Active ed) Lupus (systemic Active lupus erythematosus)(Confi rmed) Malnutrition(Confirm Active ed) Malnutrition(Confirm Active ed) Nausea and Active vomiting(Confirmed)3 Osteoporosis(Confirm Active ed) Pernicious Active anemia(Confirmed) Renal Active impairment(Confirmed )4 Scleroderma(Confirme Active d) 1Data migrated from [employer] on 07/08/14. 2bilat 3chronic per pt report 4per pt report Allergies, Adverse Reactions, Alerts Substance Reaction Severity Status benzoin topical tincture Active cephalexin1 Active ciprofloxacin2 Active codeine Active contrast media Active (iodine-based) Demerol HCl Active Dexamethasone Sodium Active Phosphate Imitrex Active Imodium A-D Active iodine topical Active Keflex Active loperamide3 Active meperidine4 Active penicillins Active pentazocine5 Active Reglan Active sulfa drugs Active SUMAtriptan6 Active Talwin Active 1Data migrated from [employer] on 06/08/14. Originally documented as KEFLEX. hives 2Data migrated from [employer] on 06/08/14. Originally documented as CIPRO. hives 3Data migrated from [employer] on 06/08/14. Originally documented as IMMODIUM. hives 4Data migrated from [employer] on 06/08/14. Originally documented as DEMEROL. hives 5Data migrated from [employer] on 06/08/14. Originally documented as TALWIN. hives 6Data migrated from [employer] on 06/08/14. Originally documented as IMITREX. hives Medications acetaminophen-hydrocodone 325 mg-10 mg oral tablet 1 tab, Route: PO, Drug Form: TAB, Dosing Weight 65.455, kg, Q6H, PRN Pain Score 4-6, Start date: 08/29/14 16:06:00, Duration: 30 day, Stop date: 09/28/14 16:05: 00 Notes: Do not exceed 4gm/day of acetaminophen. (Same as: Montezuma 325/10) Start Date: 08/29/14 Stop Date: 08/31/14 Status: Discontinued Al hydroxide/Mg hydroxide/simethicone 200 mg-200 mg-20 mg/5 mL oral suspension 30 ml, Route: PO, Drug Form: SUSP, Dosing Weight 65.455, kg, Q4H, PRN Indigestio n, Start date: 08/29/14 16:06:00, Duration: 30 day, Stop date: 09/28/14 16:05:00 Notes: (aluminum hydroxide-magnesium hyd-simethicone [phone]/5ml 30 ml ud S US) Start Date: 08/29/14 Stop Date: 08/31/14 Status: Discontinued aspirin 325 mg, 1 tab, Route: PO, Drug form: TAB, Q12H, Dosing Weight 65.455, kg, For pa tients with risk of bleeding, Start date: 08/29/14 20:08:00, Duration: 30 day, S top date: 09/28/14 9:00:00 Notes: Take with food. Start Date: 08/29/14 Stop Date: 08/31/14 Status: Discontinued aspirin 325 mg tablet, enteric coated 325 mg, PO, Q12H, # 60 tab, 0 Refill(s) Start Date: 08/31/14 Stop Date: 09/30/14 Status: Ordered aspirin 325 mg tablet, enteric coated 325 mg, Route: PO, Drug form: ECTAB, BID, Dosing Weight 65.455, kg, Priority: Yolanda whitlock, Start date: 08/29/14 17:00:00, Duration: 30 day, Stop date: 09/28/14 9:00 :00 Start Date: 08/29/14 Stop Date: 08/29/14 Status: Deleted Ativan 4 mg, 2 tab, Route: PO, Drug form: TAB, Bedtime, Dosing Weight 59.002, kg, PRN a s needed for anxiety, Start date: 08/30/14 16:30:00, Duration: 30 day, Stop date : 09/29/14 16:29:00 Notes: (Same as: Ativan) Start Date: 08/30/14 Stop Date: 08/31/14 Status: Discontinued Bentyl 10 mg, 5 mL, Route: PO, Drug form: SYRP, Q4H, Dosing Weight 59.002, kg, PRN Spas m, Start date: 08/30/14 16:29:00, Duration: 30 day, Stop date: 09/29/14 16:28:00 Notes: (Same as: Bentyl) Start Date: 08/30/14 Stop Date: 08/31/14 Status: Discontinued ceFAZolin 2 gm, 100 mL, Route: IVPB, Drug form: INJ, ONCALL, Dosing Weight 65.455, kg, Sta rt date: 08/29/14 15:00:00, Duration: 30 day, Stop date: 09/28/14 14:59:00 Start Date: 08/29/14 Stop Date: 08/29/14 Status: Deleted Cymbalta 150 mg, 5 cap, Route: PO, Drug form: DRC, Bedtime, Dosing Weight 59.002, kg, Sta rt date: 08/30/14 21:00:00, Duration: 30 day, Stop date: 09/28/14 21:00:00 Notes: (Same as: Cymbalta) (Do Not Crush) Start Date: 08/30/14 Stop Date: 08/31/14 Status: Discontinued D5W 1/2NS + KCL 20mEq/L 1000ml (Premix) 1,000 mL 1,000 mL, Rate: 75 ml/hr, Infuse over: 13.3 hr, Route: IV, Dosing Weight 65.455 kg, Total Volume: 1,000, Start date: 08/29/14 16:06:00, Duration: 30 day, Stop d ate: 09/28/14 16:05:00 Notes: PREMIX IV - Do Not Alter Start Date: 08/29/14 Stop Date: 08/31/14 Status: Discontinued Dilaudid 0.3 mg, 0.3 mL, Route: IV, Drug form: INJ, Q4H, Dosing Weight 65.455, kg, PRN Pa in Score 7-10, Start date: 08/29/14 16:06:00, Duration: 30 day, Stop date: 09/28 16:05:00 Start Date: 08/29/14 Stop Date: 08/31/14 Status: Discontinued Diovan 160 mg, 1 tab, Route: PO, Drug form: TAB, Bedtime, Dosing Weight 59.002, kg, Sta rt date: 08/30/14 21:00:00, Duration: 30 day, Stop date: 09/28/14 21:00:00 Notes: Same as Diovan Start Date: 08/30/14 Stop Date: 08/31/14 Status: Discontinued diphenhydrAMINE 12.5 mg, 0.5 tab, Route: PO, Drug form: TAB, Q6H, Dosing Weight 65.455, kg, PRN Itching, Start date: 08/29/14 16:06:00, Duration: 30 day, Stop date: 09/28/14 16 :05:00 Start Date: 08/29/14 Stop Date: 08/31/14 Status: Discontinued diphenhydrAMINE 25 mg, 1 tab, Route: PO, Drug form: TAB, Bedtime, Dosing Weight 65.455, kg, PRN Insomnia, Start date: 08/29/14 16:06:00, Duration: 30 day, Stop date: 09/28/14 1 6:05:00 Start Date: 08/29/14 Stop Date: 08/31/14 Status: Discontinued docusate sodium 100 mg oral capsule 100 mg, 1 cap, Route: PO, Drug form: CAP, BID, Dosing Weight 65.455, kg, Start d ate: 08/29/14 17:00:00, Duration: 30 day, Stop date: 09/28/14 9:00:00 Notes: (Same as: Colace) (Do Not Crush) Start Date: 08/29/14 Stop Date: 08/31/14 Status: Discontinued Dulcolax Laxative 5 mg, 1 tab, Route: PO, Drug form: ECTAB, Q24H, Dosing Weight 65.455, kg, PRN Co nstipation, Start date: 08/29/14 16:06:00, Duration: 30 day, Stop date: 09/28/14 16:05:00 Notes: (Same As: Dulcolax, Correctol) (Do Not Crush) "Do Not Crush" Start Date: 08/29/14 Stop Date: 08/31/14 Status: Discontinued fentaNYL 25 microgram, 0.5 mL, Route: IVP, Drug form: INJ, Q5Min, Dosing Weight 65.455, k g, PRN Pain Score 4-6, Start date: 08/29/14 16:21:00, Duration: 4 doses or times , Stop date: 08/30/14 0:00:00 Notes: (Same as: Sublimaze) Preservative free. Start Date: 08/29/14 Stop Date: 08/29/14 Status: Discontinued flumazenil 0.2 mg, 2 mL, Route: IVP, Drug form: INJ, PRN, Dosing Weight 65.455, kg, PRN Kenney zodiazepine Reversal, Initial dose, Start date: 08/29/14 16:21:00, Stop date: 0:00:00 Notes: (Same as: Romazicon) Start Date: 08/29/14 Stop Date: 08/29/14 Status: Discontinued hydrALAZINE 10 mg, 0.5 mL, Route: IVP, Drug form: INJ, Q20Min, Dosing Weight 65.455, kg, PRN Elevated BP, Start date: 08/29/14 16:21:00, Duration: 2 doses or times, Stop da te: 08/30/14 0:00:00 Notes: (Same as: Apresoline)Push over 5 minutes Start Date: 08/29/14 Stop Date: 08/29/14 Status: Discontinued hydromorphone 0.5 mg, 0.5 mL, Route: IVP, Drug form: INJ, Q5Min, Dosing Weight 65.455, kg, PRN Pain Score 7-10, Start date: 08/29/14 16:21:00, Duration: 4 doses or times, Stop date: 08/30/14 0:00:00 Start Date: 08/29/14 Stop Date: 08/29/14 Status: Discontinued labetalol 10 mg, 2 mL, Route: IVP, Drug form: INJ, Q5Min, Dosing Weight 65.455, kg, PRN El evated BP, Start date: 08/29/14 16:21:00, Duration: 5 doses or times, Stop date: 08/30/14 0:00:00 Notes: (Same as: Normodyne, Trandate)Push over 2 minutes Give bolus over 2-3 mi nutes. Start Date: 08/29/14 Stop Date: 08/29/14 Status: Discontinued Lactated Ringers Injection IV 1000 mL 1,000 mL, Rate: 25 ml/hr, Infuse over: 40 hr, Route: IV, Dosing Weight 65.455 kg , Total Volume: 1,000, Start date: 08/29/14 12:59:00, Duration: 30 day, Stop radha e: 09/28/14 12:58:00 Start Date: 08/29/14 Stop Date: 08/29/14 Status: Discontinued Lipitor 10 mg, 1 tab, Route: PO, Drug form: TAB, Bedtime, Start date: 08/30/14 21:00:00, Duration: 30 day, Stop date: 09/28/14 21:00:00 Notes: (Same As: Lipitor) Start Date: 08/30/14 Stop Date: 08/31/14 Status: Discontinued lovastatin 20 mg, Route: PO, Drug form: TAB, Bedtime, Dosing Weight 59.002, kg, Start date: 08/30/14 21:00:00, Duration: 30 day, Stop date: 09/28/14 21:00:00 Start Date: 08/30/14 Stop Date: 08/30/14 Status: Deleted naloxone 0.04 mg, 0.1 mL, Route: IVP, Drug form: INJ, Q2MIN, Dosing Weight 65.455, kg, MA N Narcotic Reversal, Start date: 08/29/14 16:21:00, Duration: 8 doses or times, Stop date: 08/30/14 0:00:00 Notes: Same as Narcan Start Date: 08/29/14 Stop Date: 08/29/14 Status: Discontinued Neurontin 100 mg oral capsule 400 mg, 4 cap, Route: PO, Drug form: CAP, Daily, Dosing Weight 59.002, kg, Start date: 08/31/14 9:00:00, Duration: 30 day, Stop date: 09/29/14 9:00:00 Notes: (Same as: Neurontin) Start Date: 08/31/14 Stop Date: 08/31/14 Status: Discontinued Montezuma 10/325 oral tablet 2 tab, Route: PO, Drug Form: TAB, Dosing Weight 65.455, kg, Q6H, PRN Pain Score 7-10, start after scheduled Montezuma is done., Start date: 08/29/14 16:06:00, Durat ion: 30 day, Stop date: 09/28/14 16:05:00 Notes: Do not exceed 4gm/day of acetaminophen. (Same as: Montezuma 325/10) Start Date: 08/29/14 Stop Date: 08/31/14 Status: Discontinued Montezuma 10/325 oral tablet 2 tab, Route: PO, Drug Form: TAB, Dosing Weight 65.455, kg, Q6H, Routine, Start date: 08/29/14 18:00:00, Duration: 4 doses or times, Stop date: 08/30/14 12:00:0 0 Notes: Do not exceed 4gm/day of acetaminophen. (Same as: Montezuma 325/10) Start Date: 08/29/14 Stop Date: 08/30/14 Status: Completed Norvasc 10 mg, 2 tab, Route: PO, Drug form: TAB, Bedtime, Dosing Weight 59.002, kg, Star t date: 08/30/14 21:00:00, Duration: 30 day, Stop date: 09/28/14 21:00:00 Notes: (Same as: Norvasc) Start Date: 08/30/14 Stop Date: 08/31/14 Status: Discontinued ondansetron 4 mg, 2 mL, Route: IVP, Drug form: INJ, ONCE, Dosing Weight 65.455, kg, PRN Naus ea & Vomiting, Start date: 08/29/14 16:21:00 Notes: (Same as: Wendi) MEDICATION WASTE Product Size: 4 mgProduct Was prabha: __0_ mg Start Date: 08/29/14 Stop Date: 08/29/14 Status: Discontinued ondansetron 4 mg, 2 mL, Route: IVP, Drug form: INJ, Q6H, Dosing Weight 65.455, kg, PRN Nause a & Vomiting, Start date: 08/29/14 16:06:00, Duration: 30 day, Stop date: 09/28/14 16:05:00 Notes: (Same as: Zoan) MEDICATION WASTE Product Size: 4 mgProduct Was prabha: __0_ mg Start Date: 08/29/14 Stop Date: 08/31/14 Status: Discontinued Plaquenil Sulfate 200 mg oral tablet 200 mg, 1 tab, Route: PO, Drug form: TAB, Bedtime, Dosing Weight 59.002, kg, Sta rt date: 08/30/14 21:00:00, Duration: 30 day, Stop date: 09/28/14 21:00:00 Notes: (Same as: Plaquenil)Hydroxychloroquine sulfate 200 an=659 mg hydroxychlor oquine base. If treating malaria, verify dose as salt vs. base per CDC guideline Start Date: 08/30/14 Stop Date: 08/31/14 Status: Discontinued Proventil HFA 90 mcg/inh inhalation aerosol with adapter 2 puff, Route: INHALATION, Drug Form: AERO/A, Dosing Weight 59.002, kg, QID, PRN as needed for wheezing, Start date: 08/30/14 16:29:00, Duration: 30 day, Stop d ate: 09/29/14 16:28:00 Notes: Albuterol 90 microgram/inh 8gm HFA Same as: Ventolin, Proventil Start Date: 08/30/14 Stop Date: 08/31/14 Status: Discontinued Remeron SolTab 90 mg, 6 tab, Route: PO, Drug form: TAB, Bedtime, Dosing Weight 59.002, kg, Star t date: 08/30/14 21:00:00, Duration: 30 day, Stop date: 09/28/14 21:00:00 Notes: (Same as:Remeron) Start Date: 08/30/14 Stop Date: 08/31/14 Status: Discontinued Saline Flush 0.9% 10 ml, Route: IVP, Drug Form: INJ, Dosing Weight 65.455, kg, PRN, PRN Line Flush , Start date: 08/29/14 16:06:00, Duration: 30 day, Stop date: 09/28/14 16:05:00 Notes: Same as: BD Posiflush Sterile Start Date: 08/29/14 Stop Date: 08/31/14 Status: Discontinued Topamax 200 mg, 2 tab, Route: PO, Drug form: TAB, Bedtime, Dosing Weight 59.002, kg, Sta rt date: 08/30/14 21:00:00, Duration: 30 day, Stop date: 09/28/14 21:00:00 Notes: (Same As: Topamax)"Do Not Crush" Start Date: 08/30/14 Stop Date: 08/31/14 Status: Discontinued vancomycin 1 gm, 200 mL, Route: IVPB, Drug form: INJ, ONCE, Dosing Weight 65.455, kg, Start date: 08/29/14 14:25:00, Stop date: 08/29/14 14:25:00 Notes: TIME CRITICAL MEDICATION Start Date: 08/29/14 Stop Date: 08/29/14 Status: Completed vancomycin (SCIP) 1 gm, 200 mL, Route: IVPB, Drug form: INJ, Q12H, Dosing Weight 65.455, kg, Start date: 08/30/14 3:00:00, Duration: 2 doses or times, Stop date: 08/30/14 15:00:0 0, Pharmacy to adjust dose for renal function Special Instructions: Pharmacy to adjust dose for renal function Notes: TIME CRITICAL MEDICATION Start Date: 08/30/14 Stop Date: 08/30/14 Status: Completed Vitamin B12 1,000 microgram, 1 mL, Route: IM, Drug form: INJ, QFri, Dosing Weight 59.002, kg , Start date: 09/01/14 9:00:00, Duration: 30 day, Stop date: 09/29/14 9:00:00 Notes: (Same As: Vitamin B12) Start Date: 09/01/14 Stop Date: 08/31/14 Status: Canceled Zofran ODT 4 mg, 1 tab, Route: PO, Drug form: TABDIS, TID, Dosing Weight 59.002, kg, PRN Na usea, Start date: 08/30/14 16:40:00, Duration: 30 day, Stop date: 09/29/14 16:39 :00 Notes: (Same as: Zofran ODT) Start Date: 08/30/14 Stop Date: 08/31/14 Status: Discontinued Results BLOOD BANK RESULTS 1 2 3 Most recent to oldest [Reference Range]: O POS *Unknown* (08/29/14 12:17 PM) O POS *Unknown* (08/17/14 1:50 PM) ABO/Rh Negative (08/29/14 12:17 PM) Negative (08/17/14 1:50 PM) Antibody Scrn Product available 1 (08/17/14 1:46 PM) RBC product 1Result Comment: 08/29/2014 17:20 [id number] Called to Michelle at 08/29/2014 17:20. ELECTROLYTES 1 2 3 Most recent to oldest [Reference Range]: 139 mEq/L (08/17/14 1:50 PM) Sodium Lvl [135-145 mEq/L] 4.5 mEq/L (08/17/14 1:50 PM) Potassium Lvl [3.5-5.1 mEq/L] 109 mEq/L (08/17/14 1:50 PM) Chloride Lvl [95-109 mEq/L] 22 mEq/L *LOW* (08/17/14 1:50 PM) CO2 [24-32 mEq/L] 12.5 mEq/L (08/17/14 1:50 PM) AGAP [10.0-20.0 mEq/L] CHEM PANEL 1 2 3 Most recent to oldest [Reference Range]: 1.1 mg/dL (08/29/14 7:04 PM) 1.1 mg/dL (08/17/14 1:50 PM) Creatinine Lvl [0.5-1.4 mg/dL] 57 mL/min/1.73m2 2 *NA* (08/29/14 7:04 PM) 57 mL/min/1.73m2 3 *NA* (08/17/14 1:50 PM) eGFR 25 mg/dL *HI* (08/17/14 1:50 PM) BUN [7-22 mg/dL] 23 (08/17/14 1:50 PM) B/C Ratio [6-25] 74 mg/dL (08/17/14 1:50 PM) Glucose Lvl [70-99 mg/dL] 6.1 g/dL *LOW* (08/17/14 1:50 PM) Total Protein [6.4-8.4 g/dL] 2.6 g/dL *LOW* (08/17/14 1:50 PM) Albumin Lvl [3.5-5.0 g/dL] 3.5 g/dL (08/17/14 1:50 PM) Globulin [2.0-4.0 g/dL] 0.7 (08/17/14 1:50 PM) A/G Ratio [0.7-1.6] 8.3 mg/dL *LOW* (08/17/14 1:50 PM) Calcium Lvl [8.5-10.5 mg/dL] 27 unit/L (08/17/14 1:50 PM) ALT [0-65 unit/L] 26 unit/L (08/17/14 1:50 PM) AST [0-37 unit/L] 198 unit/L *HI* (08/17/14 1:50 PM) Alk Phos [39-136 unit/L] 0.2 mg/dL (08/17/14 1:50 PM) Bili Total [0.2-1.3 mg/dL] 2Result Comment: The [...] be mul tiplied by the estimated BMI. HEMATOLOGY 1 2 3 Most recent to oldest [Reference Range]: 6.4 K/CMM (08/17/14 1:50 PM) WBC [3.7-10.4 K/CMM] 4.33 M/CMM (08/17/14 1:50 PM) RBC [4.20-5.40 M/CMM] 10.7 g/dL *LOW* (08/31/14 5:32 AM) 10.7 g/dL *LOW* (08/30/14 5:20 AM) 11.3 g/dL *LOW* (08/29/14 7:04 PM) Hgb [12.0-16.0 g/dL] 31.2 % *LOW* (08/31/14 5:32 AM) 31.4 % *LOW* (08/30/14 5:20 AM) 34.6 % *LOW* (08/29/14 7:04 PM) Hct [36.0-48.0 %] 91.2 fL (08/17/14 1:50 PM) MCV [80.0-98.0 fL] 31.1 pg *HI* (08/17/14 1:50 PM) MCH [27.0-31.0 pg] 34.1 g/dL (08/17/14 1:50 PM) MCHC [32.0-36.0 g/dL] 13.5 % (08/17/14 1:50 PM) RDW [11.5-14.5 %] 245 K/CMM (08/29/14 7:04 PM) 282 K/CMM (08/17/14 1:50 PM) Platelet [133-450 K/CMM] 8.4 fL (08/17/14 1:50 PM) MPV [7.4-10.4 fL] 65.8 % (08/17/14 1:50 PM) Segs [45.0-75.0 %] 25.1 % (08/17/14 1:50 PM) Lymphocytes [20.0-40.0 %] 6.6 % (08/17/14 1:50 PM) Monocytes [2.0-12.0 %] 1.9 % (08/17/14 1:50 PM) Eosinophils [0.0-4.0 %] 0.6 % (08/17/14 1:50 PM) Basophils [0.0-1.0 %] 4.2 K/CMM (08/17/14 1:50 PM) Segs-Bands # [1.5-8.1 K/CMM] 1.6 K/CMM (08/17/14 1:50 PM) Lymphocytes # [1.0-5.5 K/CMM] 0.4 K/CMM (08/17/14 1:50 PM) Monocytes # [0.0-0.8 K/CMM] 0.1 K/CMM (08/17/14 1:50 PM) Eosinophils # [0.0-0.5 K/CMM] 12.7 seconds (08/29/14 7:04 PM) 12.4 seconds (08/17/14 1:50 PM) PT [12.0-14.7 seconds] 0.95 (08/29/14 7:04 PM) 0.93 (08/17/14 1:50 PM) INR [0.85-1.17] 27.3 seconds (08/29/14 7:04 PM) 28.2 seconds (08/17/14 1:50 PM) PTT [22.9-35.8 seconds] Immunizations Vaccine Date Refusal Reason influenza virus vaccine, inactivated 04/22/13 pneumococcal 23-valent vaccine 04/22/13 Procedures Procedure Date Related Diagnosis Body Site Appendectomy1 Bilateral oophorectomy section2 Cholecystectomy Gastrectomy Gastrectomy3 Gastric stapling Hysterectomy Insertion of Port-a-cath Nephrectomy4 Operation5 Operation6 Operation7 Operation8 Operation9 ORIF - Open reduction and internal fixation of [id number] Removal of [id number] Tonsillectomy Total knee [id number] 2x1 3complete 4right [id number] placement 6lasik procedure 7right hip surgery S/P fracture 8multiple colon surgery and exploratory laparotomy, 9multiple adhesion surgeries 10right leg 11005/2014 sx site clean dry, no redness, intact, healing, [place] [address] Social History Social History Type Response Alcohol Previous treatment: None. Smoking Status Never smoker; Type: Cigarettes; Exposure to Tobacco Smoke None; Cigarette Smoking Last 365 Days No; Reg Smoking Cessation Counseling No Assessment and Plan Extracted from: Title: Clinical Document Author: Sujey Penn MD Date: 08/31/14 DISCHARGE SUMMARY PATIENT NAME: Sneha Carlisle ATTENDING PHYSICIAN: Sujey Penn MD DATE OF ADMISSION: 08/29/2014 DATE OF DISCHARGE: 08/31/2014 ADMISSION DIAGNOSIS: 1. Left hip avascular necrosis DISCHARGE DIAGNOSES: 1. s/p LATRICIA and Left DINEHS. HOSPITAL COURSE: Mrs. Carlisle had a left [...] Please see discharge medication reconciliation form. Extracted from: Title: Clinical Document Author: Sujey Penn MD Date: 08/31/14 Orthopedic Progress Note Daily SUBJECTIVE POD# 2 Left DINESH Doing well OBJECTIVE Left Lower Extremity Dressing intact Neurovascularly intact 2+ pulses ASSESSMENT S/P Left DINESH PLAN Change dressing in few days PT/OT Home Labs (Last four charted values) WBC 6.4(AUG 17) Hgb L 10.7(AUG 30)L 11.3(AUG 29)13.5(AUG 17) Hct L 31.4(AUG 30)L 34.6(AUG 29)39.6(AUG 17) Plt 245(AUG 29)282(AUG 17) Na 139(AUG 17) K 4.5(AUG 17) CO2 L 22(AUG 17) Cl 109(AUG 17) Cr 1.1(AUG 29)1.1(AUG 17) BUN H 25(AUG 17) Glucose Random 74(AUG 17) Ca L 8.3(AUG 17) PT 12.7(AUG 29)12.4(AUG 17) INR 0.95(AUG 29)0.93(AUG 17) PTT 27.3(AUG 29)28.2(AUG 17) Vital Signs (last 24 hrs) Last Charted Temp Oral97.9 DegF (AUG 31:13) Heart Rate Henlqyrebn92 bpm (AUG 31:13) Resp Rate 18 BRMIN (AUG 31:13) QAO559 mmHg (AUG 31:) DBP69 mmHg (AUG 31:) Extracted from: Title: Clinical Document Author: Sujey Penn MD Date: 08/29/14 OPERATIVE REPORT PATIENT NAME: Sneha Carlisle DATE OF OPERATION/PROCEDURE: 08/29/2014 PREOPERATIVE DIAGNOSIS: Left hip avascular necrosis. POSTOPERATIVE DIAGNOSIS: Left hip avascular necrosis. PROCEDURE: 1. Conversion to Left total hip arthroplasty. 2. Removal of hardware left hip. SURGEON: Dr. Sujey Penn. EDITORIAL INTERN: Corey Ceron NP. Please note that it was medically necessary to have a knowledgeable assistant hairstylist present for the case. Corey was present [...] fit and stability. At that point, the [place] PSL size 50 mm cup was placed [...] at the end of the case. IMPLANTS: [place] PSL cup size 50 with two 6.5 screws. [place] size 5 Accolade II 132 degree neck. Kellie size 36/-5 mm ceramic head. Kellie 10-degree X3 liner. Sujey Penn MD
--- OUTSIDE RECORDS SUMMARY | 2018-10-11 16:24 | XMS REPORT | CCD ---
Author Author Auto Generated Organization [facility] Address Unknown Phone Unavailable Care Team Providers Care Rn [facility] Name Role Phone Sujey Penn RP Allergies, Adverse Reactions, Alerts Substance Reaction Status [...] Medication Instructions Start Date End Date Status Lactated Ringers 1,000 mL, Rate: 25 ml/hr, Infuse 01/18/2013 01/18/2013 Discontinued Injection IV 1000 mL over: 40 hr, Route: IV, Dosing Weight 79.545 kg, Total Volume: 1,000, Start date: 01/18/13 13:29:00, Duration: 30 day, Stop date: 02/17/13 13:28:00 Villalba 10/325 oral 1 tab, Route: PO, Dosing Weight 01/18/2013 01/18/2013 Completed tablet 79.545, kg, ONCE, Start date: 01/18/13 17:03:00, Stop date: 01/18/13 17:03:00 Villalba 10/325 oral 1 tab, PO, Q6H, for pain, # 24 tab, 01/17/2013 Ordered tablet 0 Refill(s) Lasix 40 mg oral 40 mg=1 tab, PO, PRN, # 30 tab, 0 01/17/2013 Ordered tablet Refill(s) Proventil HFA 90 1 puff, INHALATION, QID, for 01/17/2013 Ordered mcg/inh inhalation wheezing, # 25 gm, 0 Refill(s) aerosol with adapter clindamycin 900 mg, Route: IVPB, ONCE, Dosing 01/18/2013 01/18/2013 Completed Weight 79.545, kg, Start date: 01/18/13 14:03:00, Stop date: 01/18/13 14:03:00 Vital Signs Most recent to [Reference Range]: 1 2 3 Height 162.56 cm (01/17/2013 10:51:00) Temperature Oral [96.4-99.1 DegF] 98.2 DegF (01/17/2013 09:53:00) Systolic Blood Pressure [90-140 mmHg] 133 mmHg (01/18/2013 16:45:00) 127 mmHg (01/18/2013 16:30:00) 125 mmHg (01/18/2013 16:20:00) Diastolic Blood Pressure [60-90 mmHg] 73 mmHg (01/18/2013 16:45:00) 72 mmHg (01/18/2013 16:30:00) 57 mmHg *LOW* (01/18/2013 16:20:00) Respiratory Rate [14-20 BRMIN] 14 BRMIN (01/18/2013 16:45:00) 16 BRMIN (01/18/2013 16:30:00) 15 BRMIN (01/18/2013 16:20:00) Peripheral Pulse Rate [60-100 bpm] 86 bpm (01/17/2013 09:53:00) Weight 79.545 kg (01/17/2013 10:51:00) Results BEDSIDE GLUCOSE TESTING Most recent to oldest [Reference Range]: 1 Glucose POC [70-99 mg/dL] 89 mg/dL 1 (01/18/2013 13:22:00) 1Interpretive Data: Upper Reportable Limit: 200 mg/dL. CHEMISTRY Most recent to oldest [Reference Range]: 1 Sodium Lvl [135-145 mEq/L] 145 mEq/L (01/18/2013 13:50:00) Potassium Lvl [3.5-5.1 mEq/L] 3.7 mEq/L (01/18/2013 13:50:00) Chloride Lvl [95-109 mEq/L] 116 mEq/L *HI* (01/18/2013 13:50:00) CO2 [24-32 mEq/L] 25 mEq/L (01/18/2013 13:50:00) AGAP [10.0-20.0 mEq/L] 7.7 mEq/L *LOW* (01/18/2013:50:00) Creatinine Lvl [0.5-1.4 mg/dL] 1.0 mg/dL (01/18/201350:00) eGFR 64 mL/min/1.73m2 2 *NA* (01/18/2013:50:00) BUN [7-22 mg/dL] 16 mg/dL (01/18/2013:50:00) Glucose Lvl [70-99 mg/dL] 81 mg/dL 3 (01/18/2013:50:00) Calcium Lvl [8.5-10.5 mg/dL] 8.4 mg/dL *LOW* (01/18/2013:50:00) 2Result Comment: The eGFR is calculated using [...] values reflect the clinical guidelines of the [place] [employer]. HEMATOLOGY Most recent to oldest [Reference Range]: 1 PT [12.0-14.7 seconds] 12.9 seconds (01/18/2013:50:00) INR [0.85-1.17] 0.98 4 (01/18/2013:50:00) PTT [22.9-35.8 seconds] 28.5 seconds 5 (01/18/2013:50:00) 4Interpretive Data: RECOMMENDED RANGES FOR PROTIME INR: 2.0-3.0 for most medical and surgical thromboembolic states. 2.5-3.5 for artificial heart valves and recurrent embolism. INR SHOULD BE USED ONLY FOR PATIENTS ON STABLE ANTICOAGULANT THERAPY. 5Interpretive Data: Heparin Therapeutic Range: 57 - 92 Seconds Procedures Procedures Date Related Diagnosis Bilateral oophorectomy section1 Cholecystectomy Gastrectomy2 Hysterectomy Nephrectomy3 Operation4 Operation5 Operation6 Operation7 Operation8 ORIF - Open reduction and internal fixation of fracture9 Tonsillectomy 1x1 2complete 3right 0gmoj-o-ajeq placement 5lasik procedure 6right hip surgery S/P fracture 7multiple colon surgery and exploratory laparotomy, 8multiple adhesion surgeries 9right leg
--- OUTSIDE RECORDS SUMMARY | 2018-10-11 16:25 | XMS REPORT | Summary of Care ---
Author Organization Unknown Address Unknown Phone Unavailable Encounter HQ Edie_paula(GRADY) [id number] Date(s): 06/09/14 - 06/09/14 [facility] [address] [place] [address]- Discharge Disposition: Home Physician Attending: Sujey Penn MD Physician_Referring: Sujey Penn MD Vital Signs 1 2 3 Most recent to oldest [Reference Range]: 162.56 cm (06/07/14 3:07 PM) Height 98.0 DegF (06/07/14 3:09 PM) Temperature Oral [96.4-99.1 DegF] 121/61 mmHg (06/09/14 8:10 AM) 127/77 mmHg (06/09/14 7:45 AM) 115/62 mmHg (06/09/14 7:33 AM) Blood Pressure [90-140/60-90 mmHg] 13 BRMIN *LOW* (06/09/14 7:15 AM) 12 BRMIN *LOW* (06/09/14 6:59 AM) 18 BRMIN (06/07/14 3:09 PM) Respiratory Rate [14-20 BRMIN] 87 bpm (06/07/14 3:09 PM) Peripheral Pulse Rate [60-100 bpm] 67.273 kg (06/07/14 3:07 PM) Weight 25.46 m2 (06/07/14 3:07 PM) Body Mass Index Problem List Condition Effective Dates Status Health Status Informant Antiphospholipid Active syndrome(Confirmed) Barretts Active esophagus(Confirmed) Cataracts(Confirmed) Active 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(Confirmed) Constipation(Confirm Active ed) Depression(Confirmed Active ) Dysphagia(Confirmed) Active Fibromyalgia(Confirm Active ed) Hypertension(Confirm Active ed) Lupus (systemic Active lupus erythematosus)(Confi rmed) Malnutrition(Confirm Active ed) Nausea and Resolved vomiting(Confirmed)2 Osteoporosis(Confirm Active ed) Pernicious Active anemia(Confirmed) Renal Resolved impairment(Confirmed )3 Scleroderma(Confirme Active d) 1bilat 2chronic per pt report 3per pt report Allergies, Adverse Reactions, Alerts Substance Reaction Severity Status cephalexin1 Active ciprofloxacin2 Active codeine Active Demerol HCl Active Dexamethasone Sodium Active Phosphate Imitrex Active Imodium A-D Active iodine3 Active Keflex Active loperamide4 Active meperidine5 Active penicillins Active pentazocine6 Active Reglan Active sulfa drugs Active SUMAtriptan7 Active Talwin Active 1Data migrated from [employer] on 06/08/14. Originally documented as KEFLEX. hives 2Data migrated from [employer] on 06/08/14. Originally documented as CIPRO. hives 3Data migrated from [employer] on 06/08/14. Originally documented as IODINE. anaphalactic 4Data migrated from [employer] on 06/08/14. Originally documented as IMMODIUM. hives 5Data migrated from [employer] on 06/08/14. Originally documented as DEMEROL. hives 6Data migrated from [employer] on 06/08/14. Originally documented as TALWIN. hives 7Data migrated from [employer] on 06/08/14. Originally documented as IMITREX. hives Medications acetaminophen-hydrocodone 325 mg-5 mg oral tablet 1 tab, Route: PO, Dosing Weight 67.273, kg, Q4H, PRN Pain Score 4-6, Start date: 06/09/14 6:58:00, Duration: 30 day, Stop date: 07/09/14 6:57:00 Start Date: 06/09/14 Stop Date: 06/10/14 Status: Discontinued Ativan 2 mg oral tablet 4 mg=2 tab, PO, Bedtime, PRN Anxiety, # 20 tab, 0 Refill(s) Start Date: 06/07/14 Status: Ordered fentaNYL 25 microgram, Route: IVP, Q5Min, Dosing Weight 67.273, kg, PRN Pain Score 4-6, S tart date: 06/09/14 7:18:00, Duration: 4 doses or times, Stop date: Limited # of times Start Date: 06/09/14 Stop Date: 06/09/14 Status: Discontinued flumazenil 0.2 mg, Route: IVP, PRN, Dosing Weight 67.273, kg, PRN Benzodiazepine Reversal, Initial dose, Start date: 06/09/14 7:18:00, Duration: 30 day, Stop date: 5 7:17:00 Start Date: 06/09/14 Stop Date: 06/09/14 Status: Discontinued hydrALAZINE 10 mg, Route: IVP, Q20Min, Dosing Weight 67.273, kg, PRN Elevated BP, Start date : 06/09/14 7:18:00, Duration: 2 doses or times, Stop date: Limited # of times Start Date: 06/09/14 Stop Date: 06/09/14 Status: Discontinued hydromorphone 0.5 mg, Route: IVP, Q5Min, Dosing Weight 67.273, kg, PRN Pain Score 7-10, Start date: 06/09/14 7:18:00, Duration: 4 doses or times, Stop date: Limited # of time s Start Date: 06/09/14 Stop Date: 06/09/14 Status: Discontinued labetalol 10 mg, Route: IVP, Q5Min, Dosing Weight 67.273, kg, PRN Elevated BP, Start date: 06/09/14 7:18:00, Duration: 5 doses or times, Stop date: Limited # of times Start Date: 06/09/14 Stop Date: 06/09/14 Status: Discontinued Lactated Ringers Injection IV 1000 mL 1,000 mL, Rate: 25 ml/hr, Infuse over: 40 hr, Route: IV, Dosing Weight 67.273 kg , Total Volume: 1,000, Start date: 06/09/14 7:11:00, Duration: 30 day, Stop date : 07/09/14 7:10:00 Start Date: 06/09/14 Stop Date: 06/09/14 Status: Discontinued naloxone 0.04 mg, Route: IVP, Q2MIN, Dosing Weight 67.273, kg, PRN Narcotic Reversal, Sta rt date: 06/09/14 7:18:00, Duration: 8 doses or times, Stop date: Limited # of t imes Start Date: 06/09/14 Stop Date: 06/09/14 Status: Discontinued Neurontin 100 mg oral capsule 400 mg=4 cap, PO, Daily, # 240 cap, 0 Refill(s) Start Date: 06/07/14 Status: Ordered ondansetron 4 mg, Route: IVP, ONCE, Dosing Weight 67.273, kg, PRN Nausea & Vomiting, Start date: 06/09/14 7:18:00 Start Date: 06/09/14 Stop Date: 06/09/14 Status: Discontinued oxyCODONE 5 mg immediate release 5 mg, Route: PO, Drug form: TAB, ONCE, Dosing Weight 67.273, kg, Start date: 02/23 7:41:00, Stop date: 06/09/14 7:41:00 Start Date: 06/09/14 Stop Date: 06/09/14 Status: Completed Remeron SolTab 45 mg oral tablet, disintegrating 45 mg=1 tab, PO, Bedtime, # 30 tab, 0 Refill(s) Start Date: 06/07/14 Status: Ordered vancomycin 1 gm, Route: IVPB, Drug form: INJ, ONCALL, Dosing Weight 67.273, kg, Start date: 06/09/14 8:00:00 Start Date: 06/09/14 Stop Date: 06/09/14 Status: Completed Zofran ODT 4 mg oral tablet, disintegrating 1-2 tab, PO, TID, # 3 tab, 0 Refill(s) Start Date: 06/07/14 Stop Date: 06/08/14 Status: Ordered Results No data available for this section Immunizations Vaccine Date Refusal Reason influenza virus vaccine, inactivated 04/22/13 pneumococcal 23-valent vaccine 04/22/13 Procedures Procedure Date Related Diagnosis Body Site Appendectomy1 Bilateral oophorectomy section2 Cholecystectomy Gastrectomy Gastrectomy3 Hysterectomy Insertion of Port-a-cath Nephrectomy4 Operation5 Operation6 Operation7 Operation8 Operation9 ORIF - Open reduction and internal fixation of [id number] Removal of [id number] Tonsillectomy Total knee [id number] 2x1 3complete 4right 3iadt-i-agdi placement 6lasik procedure 7right hip surgery S/P fracture 8multiple colon surgery and exploratory laparotomy, 9multiple adhesion surgeries 10right leg 1104/2014 sx site clean dry, no redness, intact, healing, [place] [address]/2014 Social History Social History Type Response Alcohol Previous treatment: None. Smoking Status Never smoker; Type: Cigarettes; Exposure to Tobacco Smoke None; Cigarette Smoking Last 365 Days No; Reg Smoking Cessation Counseling No Assessment and Plan Extracted from: Title: Clinical Document Author: Sujey Penn MD Date: 06/09/14 OPERATIVE REPORT PATIENT NAME:Sneha Carlisle DATE OF PROCEDURE: 06/09/2014 PREOPERATIVE DIAGNOSIS: Symptomatic Hardware left hip. POSTOPERATIVE DIAGNOSIS: Symptomatic Hardware left hip. NAME OF PROCEDURE: Removal of one screw left hip. SURGEON(s): Dr. Sujey Penn. FUR DRY CLEANER HAND: Corey Ceron NP. Please note that it was medically necessary to have a knowledgeable prosthetic assistant present for the case. Corey was [...] correct at the end of the case. Sujey Penn MD
--- OUTSIDE RECORDS SUMMARY | 2018-10-11 16:25 | XMS REPORT | Summary of Care ---
Author Author [facility] Organization [facility] Address Unknown Phone Unavailable Encounter RICKI Candelario(GRADY) [id number] Date(s): 01/26/18 - 01/26/18 [facility] [address] [place] [address]- Encounter Diagnosis Other mechanical complication of infusion catheter, initial encounter (Final) - 02/04/18 Dysphagia, unspecified (Final) - Discharge Disposition: Home or Self Care Attending Physician: Melisa Espinoza MD Referring Physician: Melisa Espinoza MD Vital Signs Most recent to 1 oldest [Reference Range]: Height 162.56 cm (01/26/18 12:52 PM) Weight 65.909 kg (01/26/18 12:52 PM) Body Mass Index 24.94 m2 (01/26/18 12:52 PM) Problem List Condition Effective Dates Status Health Status Informant Abdominal pain1 01/24/14 Active Abdominal Resolved pain(Confirmed) Abnormal coagulation Active time(Confirmed) Abnormal coagulation Resolved time(Confirmed) Anti-phospholipid Resolved syndrome(Confirmed) Antiphospholipid Active syndrome(Confirmed) Barretts Active esophagus(Confirmed) Cataracts(Confirmed) Active Chondromalacia of Active patella(Confirmed)2 Chronic Active nausea(Confirmed) Complete Resolved gastrectomy(Confirme d) Constipation(Confirm Active ed) Depression(Confirmed Active ) Diffuse disease of Resolved connective tissue(Confirmed) Dysphagia(Confirmed) Active Dysphagia(Confirmed) Resolved Fibromyalgia(Confirm Active ed) Hypertension(Confirm Active ed) Malnutrition(Confirm Active ed) Malnutrition(Confirm Active ed) Nausea and Active vomiting(Confirmed)3 Osteoporosis(Confirm Active ed) Pernicious Active anemia(Confirmed) Renal Active impairment(Confirmed )4 Scleroderma(Confirme Active d) 1Data migrated from [employer] on 07/08/14. 2bilat 3chronic per pt report 4per pt report Allergies, Adverse Reactions, Alerts Substance Reaction Severity Status penicillins1 Active sulfa drugs2 Active iodine topical Active ciprofloxacin3 Active codeine4 Active meperidine5 Active cephalexin6 Active loperamide7 Active pentazocine8 Active Keflex Active Talwin Active Imitrex Active Reglan Active Demerol HCl Active Imodium A-D Active benzoin topical tincture Active Dexamethasone Sodium Active Phosphate contrast media Active (iodine-based) SUMAtriptan9 Active 1Data migrated from [employer] on 09/07/14. Originally documented as PENICILLIN. hives 2Data migrated from [employer] on 09/07/14. Originally documented as SULFA. hives 3Data migrated from [employer] on 06/08/14. Originally documented as CIPRO. hives 4Data migrated from [employer] on 04/11/15. Originally documented as CODEINE. hives 5Data migrated from [employer] on 06/08/14. Originally documented as DEMEROL. hives 6Data migrated from [employer] on 06/08/14. Originally documented as KEFLEX. hives 7Data migrated from [employer] on 06/08/14. Originally documented as IMMODIUM. hives 8Data migrated from [employer] on 06/08/14. Originally documented as TALWIN. hives 9Data migrated from [employer] on 06/08/14. Originally documented as IMITREX. hives Medications losartan 25 mg oral tablet 0 Refill(s) Start Date: 01/26/18 Status: Ordered Results No data available for this section Immunizations Given and Recorded Vaccine Date Status Refusal Reason influenza virus vaccine, inactivated 04/22/13 Given pneumococcal 23-valent vaccine 04/22/13 Given Procedures Procedure Date Related Diagnosis Body Site Status Insertion of Cpos-h-tuje7 03/13/17 Completed Removal of Port-a-cath and groshong cath 02/21/17 Completed placement2 Appendectomy3 Completed Bilateral oophorectomy Completed section4 Completed Cholecystectomy Completed Gastrectomy Completed Gastrectomy5 Completed Gastric stapling Completed Hysterectomy Completed Insertion of Port-a-cath Completed Nephrectomy6 Completed Operation7 Completed Operation8 Completed Operation9 Completed Rsrrpelgj29 Completed [id number] Completed ORIF - Open reduction and internal fixation Completed of [id number] Removal of Jukm-c-[id number] Completed Tonsillectomy Completed Total knee Completed 1removal of groshong cath 2Removal of Port-a-cath and groshong cath placement 30250 4x1 5complete 6right 7lasik procedure 8multiple colon surgery and exploratory laparotomy, 9right hip surgery S/P fracture 10multiple adhesion surgeries 07hosu-p-vkmo placement 12right leg 130/2014 sx site clean dry, no redness, intact, healing, [place] [address] Social History Social History Type Response Substance Abuse Use: None. Sexual Sexually active: No. Exercise 1 Employment/School 2 Alcohol Previous treatment: None. Smoking Status Never smoker; Type: Cigarettes; Ready to change: No; Concerns about tobacco use in household: No; Exposure to Tobacco Smoke None; Cigarette Smoking Last 365 Days No; Reg Smoking Cessation Counseling No entered on: 01/26/18 1No work with PT people S/P ORIF last month. 2none Assessment and Plan No data available for this section
--- OUTSIDE RECORDS SUMMARY | 2018-10-11 16:25 | XMS REPORT | Summary of Care ---
Author Organization Unknown Address Unknown Phone Unavailable Encounter HQ Edie_paula(GRADY) [id number] Date(s): 02/28/14 - 03/05/14 [facility] [id number] Discharge Disposition: Home Physician Attending: Uli Montanez DO Physician Admitting: Uli Montanez DO Physician_Referring: Sujey Penn MD Reason for Visit [id number] Vital Signs 1 2 3 Most recent to oldest [Reference Range]: 172.7 cm (02/28/14 6:04 PM) 172.72 cm (02/24/14 10:30 AM) Height 97.8 DegF (03/05/14 12:47 PM) 98.3 DegF (03/05/14 8:26 AM) 97.9 DegF (03/05/14 4:28 AM) Temperature Oral [96.4-99.1 DegF] 101 mmHg (03/05/14 12:47 PM) 98 mmHg (03/05/14 8:26 AM) 120 mmHg (03/05/14 4:28 AM) Systolic Blood Pressure [90-140 mmHg] 68 mmHg (03/05/14 12:47 PM) 63 mmHg (03/05/14 8:26 AM) 78 mmHg (03/05/14 4:28 AM) Diastolic Blood Pressure [60-90 mmHg] 14 BRMIN (03/05/14 12:47 PM) 14 BRMIN (03/05/14 8:26 AM) 14 BRMIN (03/05/14 4:28 AM) Respiratory Rate [14-20 BRMIN] 102 bpm *HI* (03/05/14 12:47 PM) 94 bpm (03/05/14 8:26 AM) 92 bpm (03/05/14 4:28 AM) Peripheral Pulse Rate [60-100 bpm] 81.81 kg (1/20/15 6:04 PM) 81.818 kg (02/24/14 10:30 AM) Weight 27.43 m2 (02/28/14 6:04 PM) 27.43 m2 (02/24/14 10:30 AM) Body Mass Index Problem List Condition Effective Dates Status Health Status Informant Antiphospholipid Active syndrome(Confirmed) Cataracts(Confirmed) Resolved Chondromalacia of Resolved patella(Confirmed)1 Constipation(Confirm Resolved ed) Depression(Confirmed Resolved ) Fibromyalgia(Confirm Resolved ed) Nausea and Resolved vomiting(Confirmed)2 Osteoporosis(Confirm Resolved ed) Pernicious Resolved anemia(Confirmed) Renal Resolved impairment(Confirmed )3 Scleroderma(Confirme Resolved d) 1bilat 2chronic per pt report 3per pt report Allergies, Adverse Reactions, Alerts Substance Reaction Severity Status ciprofloxacin Active codeine Active Demerol HCl Active Dexamethasone Sodium Active Phosphate Imitrex Active Imodium A-D Active iodine Active Keflex Active penicillins Active Reglan Active sulfa drugs Active Talwin Active Medications *RN- to bring pt's LAMISIL 250mg tab to pharmacy for label* *RN- to bring pt's LAMISIL 250mg tab to pharmacy for label*, 1, Drug form: MISC, Route: MISC, TID, 03/02/14 8:30:00, Duration: 30 day, Stop date: 03/31/14 17:00 :00 Start Date: 03/02/14 Stop Date: 03/05/14 Status: Discontinued acetaminophen-hydrocodone 325 mg-10 mg oral tablet 1 tab, Route: PO, Drug Form: TAB, Dosing Weight 81.818, kg, Q4H, PRN Pain Score 4-6, Start date: 02/28/14 16:09:00, Duration: 30 day, Stop date: 03/30/14 16:08: 00 Notes: Do not exceed 4gm/day of acetaminophen. (Same as: Smoaks 325/10) Start Date: 02/28/14 Stop Date: 03/05/14 Status: Discontinued acetaminophen-hydrocodone 325 mg-5 mg oral tablet 1 tab, Route: PO, Drug Form: TAB, Dosing Weight 81.818, kg, Q4H, PRN Pain Score 4-6, Start date: 02/28/14 16:09:00, Duration: 30 day, Stop date: 03/30/14 16:08: 00 Notes: (Same as: Smoaks 325/5) Do not exceed 4gm/day of acetaminophen. Start Date: 02/28/14 Stop Date: 03/05/14 Status: Discontinued Al hydroxide/Mg hydroxide/simethicone 200 mg-200 mg-20 mg/5 mL oral suspension 30 ml, Route: PO, Drug Form: SUSP, Dosing Weight 81.818, kg, Q4H, PRN Indigestio n, Start date: 02/28/14 16:09:00, Duration: 30 day, Stop date: 03/30/14 16:08:00 Notes: (aluminum hydroxide-magnesium hyd-simethicone [id number]/5ml 30 ml ud S US) Start Date: 02/28/14 Stop Date: 03/05/14 Status: Discontinued alteplase 2 mg, 2 mL, Route: INJ, Drug form: INJ, ONCE, Dosing Weight 81.81, kg, Start radha e: 03/01/14 0:07:00, Stop date: 03/01/14 0:07:00 Notes: "Syringe for catheter clearance or interventional radiology use.Reconstit glendy each vial of Cathflo Activase with 2.2ml Sterile Water resulting in a 1mg/ml solution. "Withdraw with a 5 micron filter needle."Stable for 8 hours only. (S robin as: Activase) Start Date: 03/01/14 Stop Date: 03/01/14 Status: Completed Ativan 4 mg, 2 tab, Route: PO, Drug form: TAB, Bedtime, Dosing Weight 81.81, kg, Start date: 03/01/14 0:25:00, Duration: 30 day, Stop date: 03/29/14 21:00:00 Notes: (Same as: Ativan) Start Date: 03/01/14 Stop Date: 03/05/14 Status: Discontinued Bentyl 10 mg, 5 mL, Route: PO, Drug form: SYRP, Q4H, Dosing Weight 81.81, kg, PRN Spasm , Start date: 03/01/14 15:36:00, Stop date: 03/31/14 15:35:00 Notes: (Same as: Bentyl) Start Date: 03/01/14 Stop Date: 03/05/14 Status: Discontinued Carafate 1 g/10 mL oral suspension 0 Refill(s) Start Date: 02/24/14 Status: Ordered Carafate 1 g/10 mL oral suspension 2 gm, 20 mL, Route: PO, Drug form: SUSP, BID, Dosing Weight 81.81, kg, Start radha e: 03/01/14 17:00:00, Duration: 30 day, Stop date: 03/31/14 9:00:00 Notes: Enteral feeds may interfere with the absorption of this medication. Ciro e well. Take 1 hr before or 2 hrs after antacids, dairy pdt, minerals & meals. (Same As: Carafate) Start Date: 03/01/14 Stop Date: 03/05/14 Status: Discontinued Compazine 10 mg, 2 mL, Route: IM, Drug form: INJ, Q6H, Dosing Weight 81.81, kg, PRN Nausea & Vomiting, Start date: 03/03/14 13:02:00, Duration: 30 day, Stop date: 04/02/14 13:01:00 Notes: (Same as: Compazine) Start Date: 03/03/14 Stop Date: 03/05/14 Status: Discontinued Cymbalta 120 mg, 4 cap, Route: PO, Drug form: DRC, Bedtime, Dosing Weight 81.81, kg, Star t date: 03/01/14 21:00:00, Duration: 30 day, Stop date: 03/30/14 21:00:00 Notes: (Same as: Cymbalta) (Do Not Crush) Start Date: 03/01/14 Stop Date: 03/05/14 Status: Discontinued D5W 1/2NS + KCL 20mEq/L 1000ml (Premix) 1,000 mL 1,000 mL, Rate: 40 ml/hr, Infuse over: 25 hr, Route: IV, Dosing Weight 81.818 kg , Total Volume: 1,000, Start date: 02/28/14 16:09:00, Duration: 30 day, Stop radha e: 03/30/14 16:08:00 Notes: PREMIX IV - Do Not Alter Start Date: 02/28/14 Stop Date: 03/03/14 Status: Discontinued Diovan 160 mg, 1 tab, Route: PO, Drug form: TAB, Bedtime, Dosing Weight 81.81, kg, Star t date: 03/01/14 21:00:00, Duration: 30 day, Stop date: 03/30/14 21:00:00 Notes: Same as Diovan Start Date: 03/01/14 Stop Date: 03/05/14 Status: Discontinued diphenhydrAMINE 12.5 mg, 5 mL, Route: PO, Drug form: LIQ, Q6H, Dosing Weight 81.818, kg, PRN Itc rod, Start date: 02/28/14 16:09:00, Duration: 30 day, Stop date: 03/30/14 16:08 :00 Notes: (Same as: Benadryl) Start Date: 02/28/14 Stop Date: 03/05/14 Status: Discontinued diphenhydrAMINE 25 mg, 1 tab, Route: PO, Drug form: TAB, Bedtime, Dosing Weight 81.818, kg, PRN Insomnia, Start date: 02/28/14 16:09:00, Duration: 30 day, Stop date: 03/30/14 1 6:08:00 Start Date: 02/28/14 Stop Date: 03/05/14 Status: Discontinued docusate sodium 100 mg oral capsule 100 mg, 1 cap, Route: PO, Drug form: CAP, BID, Dosing Weight 81.818, kg, Start d ate: 02/28/14 17:00:00, Duration: 30 day, Stop date: 03/30/14 9:00:00 Notes: (Same as: Colace) (Do Not Crush) Start Date: 02/28/14 Stop Date: 03/05/14 Status: Discontinued Dulcolax Laxative 10 mg, 1 supp, Route: KS, Drug form: SUPP, ONCE, Dosing Weight 81.81, kg, Start date: 03/03/14 13:07:00, Stop date: 03/03/14 13:07:00 Notes: (Same As: Dulcolax, Bisco-Lax) Start Date: 03/03/14 Stop Date: 03/04/14 Status: Completed Dulcolax Laxative 5 mg, 1 tab, Route: PO, Drug form: ECTAB, Q24H, Dosing Weight 81.818, kg, PRN Co nstipation, Start date: 02/28/14 16:09:00, Duration: 30 day, Stop date: 03/30/14 16:08:00 Notes: (Same As: Dulcolax, Correctol) (Do Not Crush) "Do Not Crush" Start Date: 02/28/14 Stop Date: 03/05/14 Status: Discontinued erythromycin + Sodium Chloride 0.9% IV 100 mL 200 mg, Route: IV, Drug form: PDR/INJ, Q12H, Dosing Weight 81.81, kg, Priority: STAT, Start date: 03/03/14 17:55:00, Duration: 3 day, Stop date: 03/06/14 9:00:0 0 Notes: (Same as: erythromycin lactobionate) Start Date: 03/03/14 Stop Date: 03/04/14 Status: Discontinued erythromycin + Sodium Chloride 0.9% IV 100 mL 250 mg, Route: IVPB, Q12H, Dosing Weight 81.81, kg, Priority: NOW, Start date: 0 03/04/14 17:01:00, Duration: 30 day, Stop date: 04/03/14 10:00:00 Notes: (Same as: erythromycin lactobionate) Start Date: 03/04/14 Stop Date: 03/05/14 Status: Discontinued fentaNYL 25 microgram, Route: IVP, Q5Min, Dosing Weight 81.818, kg, PRN Pain Score 4-6, S tart date: 02/28/14 16:17:00, Duration: 4 doses or times, Stop date: Limited # o f times Start Date: 02/28/14 Stop Date: 02/28/14 Status: Discontinued flumazenil 0.2 mg, Route: IVP, PRN, Dosing Weight 81.818, kg, PRN Benzodiazepine Reversal, Initial dose, Start date: 02/28/14 16:17:00, Duration: 30 day, Stop date: 16:16:00 Start Date: 02/28/14 Stop Date: 02/28/14 Status: Discontinued hydrALAZINE 10 mg, 0.5 mL, Route: IV, Drug form: INJ, Q6H, Dosing Weight 81.81, kg, PRN Elev ated BP, Start date: 03/03/14 13:07:00, Duration: 30 day, Stop date: 04/02/14 13 :06:00 Notes: (Same as: Apresoline)Push over 5 minutes Start Date: 03/03/14 Stop Date: 03/05/14 Status: Discontinued hydrALAZINE 10 mg, Route: IVP, Q20Min, Dosing Weight 81.818, kg, PRN Elevated BP, Start date : 02/28/14 16:17:00, Duration: 2 doses or times, Stop date: Limited # of times Start Date: 02/28/14 Stop Date: 02/28/14 Status: Discontinued hydromorphone 0.5 mg, Route: IVP, Q5Min, Dosing Weight 81.818, kg, PRN Pain Score 7-10, Start date: 02/28/14 16:17:00, Duration: 4 doses or times, Stop date: Limited # of octavio es Start Date: 02/28/14 Stop Date: 02/28/14 Status: Discontinued hydromorphone 0.3 mg, 0.3 mL, Route: IVP, Drug form: INJ, Q3H, Dosing Weight 81.818, kg, PRN P ain Score 4-6, Start date: 02/28/14 16:09:00, Duration: 30 day, Stop date: 03/30 16:08:00 Start Date: 02/28/14 Stop Date: 03/05/14 Status: Discontinued ketorolac 15 mg, 1 mL, Route: IVP, Drug form: INJ, Q6H, Dosing Weight 81.818, kg, PRN Pain Score 1-3, Start date: 02/28/14 16:09:00, Duration: 6 doses or times, Stop date: Limited # of times Notes: (Same as:Toradol) IV bolus must be given >15 seconds. Give IM administration slowly and deeply into the muscle. Not for use > 4 days. Start Date: 02/28/14 Stop Date: 03/05/14 Status: Discontinued labetalol 10 mg, Route: IVP, Q5Min, Dosing Weight 81.818, kg, PRN Elevated BP, Start date: 02/28/14 16:17:00, Duration: 5 doses or times, Stop date: Limited # of times Start Date: 02/28/14 Stop Date: 02/28/14 Status: Discontinued Lactated Ringers Injection IV 1000 mL 1,000 mL, Rate: 25 ml/hr, Infuse over: 40 hr, Route: IV, Dosing Weight 81.818 kg , Total Volume: 1,000, Start date: 02/28/14 12:41:00, Duration: 30 day, Stop radha e: 03/30/14 12:40:00 Start Date: 02/28/14 Stop Date: 02/28/14 Status: Discontinued LamISIL 250 mg, Route: PO, Drug form: TAB, Daily, Dosing Weight 81.81, kg, Start date: 0 03/02/14 9:00:00, Duration: 30 day, Stop date: 03/31/14 9:00:00 Start Date: 03/02/14 Stop Date: 03/05/14 Status: Discontinued Lipitor 10 mg, 1 tab, Route: PO, Drug form: TAB, Bedtime, Start date: 03/01/14 21:00:00, Duration: 30 day, Stop date: 03/30/14 21:00:00 Notes: (Same As: Lipitor) Start Date: 03/01/14 Stop Date: 03/05/14 Status: Discontinued lovastatin 20 mg, Route: PO, Drug form: TAB, Bedtime, Dosing Weight 81.81, kg, Start date: 03/01/14 21:00:00, Duration: 30 day, Stop date: 03/30/14 21:00:00 Start Date: 03/01/14 Stop Date: 03/01/14 Status: Deleted mirtazapine 90 mg, 6 tab, Route: PO, Drug form: TAB, Bedtime, Dosing Weight 81.81, kg, Start date: 03/01/14 21:00:00, Duration: 30 day, Stop date: 03/30/14 21:00:00 Notes: (Same as:Remeron) Start Date: 03/01/14 Stop Date: 03/05/14 Status: Discontinued morphine Sulfate 2 mg, 1 mL, Route: IVP, Drug form: INJ, Q3H, Dosing Weight 81.818, kg, PRN Pain Score 1-3, Start date: 02/28/14 16:09:00, Duration: 30 day, Stop date: 03/30/14 16:08:00 Notes: (Same as:MORPhine Sulfate) Start Date: 02/28/14 Stop Date: 03/05/14 Status: Discontinued naloxone 0.04 mg, Route: IVP, Q2MIN, Dosing Weight 81.818, kg, PRN Narcotic Reversal, Sta rt date: 02/28/14 16:17:00, Duration: 8 doses or times, Stop date: Limited # of times Start Date: 02/28/14 Stop Date: 02/28/14 Status: Discontinued Neurontin 100 mg oral capsule 100 mg, 1 cap, Route: PO, Drug form: CAP, QID, Dosing Weight 81.81, kg, Start da te: 03/01/14 17:00:00, Duration: 30 day, Stop date: 03/31/14 13:00:00 Notes: (Same as: Neurontin) Start Date: 03/01/14 Stop Date: 03/05/14 Status: Discontinued Smoaks 10/325 oral tablet 2 tab, PO, Q6H, Pain Score 7-10, 0 Refill(s) Start Date: 03/02/14 Status: Ordered Smoaks 10/325 oral tablet 2 tab, Route: PO, Drug Form: TAB, Dosing Weight 81.818, kg, Q6H, PRN Pain Score 7-10, Start date: 02/28/14 16:09:00, Duration: 30 day, Stop date: 03/30/14 16:08 :00 Notes: Do not exceed 4gm/day of acetaminophen. (Same as: Smoaks 325/10) Start Date: 02/28/14 Stop Date: 03/05/14 Status: Discontinued Smoaks 5/325 oral tablet 1 tab, PO, Q6H, 0 Refill(s) Start Date: 02/24/14 Stop Date: 03/02/14 Status: Discontinued Norvasc 10 mg, 2 tab, Route: PO, Drug form: TAB, Bedtime, Dosing Weight 81.81, kg, Start date: 03/01/14 21:00:00, Duration: 30 day, Stop date: 03/30/14 21:00:00 Notes: (Same as: Norvasc) Start Date: 03/01/14 Stop Date: 03/05/14 Status: Discontinued NS 1000 mL 1,000 mL, Rate: 80 ml/hr, Infuse over: 12.5 hr, Route: IV, Dosing Weight 81.81 k g, Total Volume: 1,000, Start date: 03/03/14 12:58:00, Duration: 30 day, Stop da te: 04/02/14 12:57:00 Start Date: 03/03/14 Stop Date: 03/05/14 Status: Discontinued ondansetron 4 mg, Route: IVP, ONCE, Dosing Weight 81.818, kg, PRN Nausea & Vomiting, Start date: 02/28/14 16:17:00 Start Date: 02/28/14 Stop Date: 02/28/14 Status: Completed pantoprazole 80 mg + Sodium Chloride 0.9% IV 100 mL 100 mL, Rate: 10 ml/hr, Infuse over: 10 hr, Route: IVPB, Dosing Weight 81.81 kg, Total Volume: 100, Infuse at 8 mg / hr for 72 hours for GI bleeding, Start date: 03/03/14 12:57:00, Duration: 72 hr, Stop date: 03/06/14 12:56:00 Start Date: 03/03/14 Stop Date: 03/03/14 Status: Discontinued Plaquenil Sulfate 200 mg oral tablet 200 mg=1 tab, PO, Daily, # 60 tab, 0 Refill(s) Start Date: 02/24/14 Status: Ordered Plaquenil Sulfate 200 mg oral tablet 400 mg, 2 tab, Route: PO, Drug form: TAB, Daily, Dosing Weight 81.81, kg, Start date: 03/01/14 21:00:00, Duration: 30 day, Stop date: 03/30/14 21:00:00 Notes: (Same as: Plaquenil)Hydroxychloroquine sulfate 200 xn=295 mg hydroxychlor oquine base. If treating malaria, verify dose as salt vs. base per CDC guideline Start Date: 03/01/14 Stop Date: 03/05/14 Status: Discontinued promethazine + Sodium Chloride 0.9% IV 50 mL 12.5 mg, 0.5 mL, Route: IVPB, Q4H, Dosing Weight 81.818, kg, PRN Nausea & Vomiting, Start date: 02/28/14 16:09:00, Duration: 30 day, Stop date: 03/30/14 16:08:00 Notes: Do not give IV push. (Same as: Phenergan) Start Date: 02/28/14 Stop Date: 03/05/14 Status: Discontinued Protonix 40 mg, 1 tab, Route: PO, Drug form: ECTAB, Before Dinner, Dosing Weight 81.81, k g, Start date: 03/02/14 16:30:00, Duration: 30 day, Stop date: 03/31/14 16:30:00 Notes: Tablet should not be chewed or crushed.(Same as: Protonix) Start Date: 03/02/14 Stop Date: 03/03/14 Status: Discontinued Proventil HFA 90 mcg/inh inhalation aerosol with adapter 180 microgram, Route: INHALATION, Drug Form: AERO/A, Dosing Weight 81.81, kg, QI D, PRN as needed for wheezing, Start date: 03/01/14 15:35:00, Stop date: 15:34:00 Notes: Albuterol 90 microgram/inh 8gm HFA Same as: Ventolin, Proventil Start Date: 03/01/14 Stop Date: 03/05/14 Status: Discontinued Reglan 10 mg, Route: IVP, Drug form: INJ, Q6H, Dosing Weight 81.81, kg, Start date: 18:00:00, Duration: 3 day, Stop date: 03/06/14 12:00:00 Start Date: 03/03/14 Stop Date: 03/03/14 Status: Canceled Remeron 15 mg oral tablet 15 mg=1 tab, PO, Bedtime, # 30 tab, 0 Refill(s) Start Date: 02/24/14 Stop Date: 03/02/14 Status: Discontinued rivaroxaban 10 mg, 1 tab, Route: PO, Drug form: TAB, Q24H, Dosing Weight 81.818, kg, Start d ate: 02/28/14 22:11:00, Duration: 30 day, Stop date: 03/29/14 22:11:00 Notes: (Same as: Xarelto)Do Not Crush Start Date: 02/28/14 Stop Date: 03/04/14 Status: Voided With Results rivaroxaban 10 mg oral tablet 10 mg=1 tab, PO, Q24H, # 30 tab, 0 Refill(s) Start Date: 03/02/14 Status: Ordered Saline Flush 0.9% 10 ml, Route: IVP, Drug Form: INJ, Dosing Weight 81.818, kg, PRN, PRN Line Flush , Start date: 02/28/14 16:09:00, Duration: 30 day, Stop date: 03/30/14 16:08:00 Notes: (Same as: BD Posiflush) Start Date: 02/28/14 Stop Date: 03/05/14 Status: Discontinued Sodium Chloride 0.9% IV 500 mL 500 mL, Rate: 25 ml/hr, Infuse over: 20 hr, Route: IV, Dosing Weight 81.81 kg, T otal Volume: 500, Start date: 03/03/14 15:42:00, Duration: 30 day, Stop date: 15:41:00 Start Date: 03/03/14 Stop Date: 03/03/14 Status: Discontinued temazepam 7.5 mg, 1 cap, Route: PO, Drug form: CAP, Bedtime, Dosing Weight 81.818, kg, PRN Insomnia, Start date: 02/28/14 16:09:00, Duration: 30 day, Stop date: 03/30/14 16:08:00 Notes: (Same As: Restoril) Start Date: 02/28/14 Stop Date: 03/05/14 Status: Discontinued Topamax 200 mg, 2 tab, Route: PO, Drug form: TAB, Bedtime, Dosing Weight 81.81, kg, Star t date: 03/01/14 21:00:00, Duration: 30 day, Stop date: 03/30/14 21:00:00 Notes: (Same As: Topamax)"Do Not Crush" Start Date: 03/01/14 Stop Date: 03/05/14 Status: Discontinued vancomycin 1 gm, Route: IVPB, Drug form: INJ, ONCE, Dosing Weight 81.818, kg, Start date: 0 02/28/14 14:55:00, Stop date: 02/28/14 14:55:00 Start Date: 02/28/14 Stop Date: 02/28/14 Status: Completed vancomycin (SCIP) 1 gm, 200 mL, Route: IVPB, Drug form: INJ, [id number], Dosing Weight 81.818, kg, St art date: 03/01/14 2:00:00, Duration: 1 doses or times, Stop date: 03/01/14 2:00 :00, Pharmacy to adjust dose for renal function Special Instructions: Pharmacy to adjust dose for renal function Start Date: 03/01/14 Stop Date: 03/01/14 Status: Completed Vitamin B12 1,000 microgram, 1 mL, Route: IM, Drug form: INJ, QFri, Dosing Weight 81.81, kg, Start date: 03/03/14 9:00:00, Duration: 30 day, Stop date: 03/31/14 9:00:00 Notes: (Same As: Vitamin B12) Start Date: 03/03/14 Stop Date: 03/05/14 Status: Discontinued Xarelto 10 mg, 1 tab, Route: PO, Drug form: TAB, Bedtime, Dosing Weight 81.81, kg, Start date: 03/05/14 21:00:00, Duration: 30 day, Stop date: 04/03/14 21:00:00 Notes: (Same as: Xarelto)Do Not Crush Start Date: 03/05/14 Stop Date: 03/05/14 Status: Canceled Zofran 4 mg, 2 mL, Route: IV, Drug form: INJ, Q4H, Dosing Weight 81.81, kg, PRN as need ed for nausea/vomiting, Start date: 03/01/14 0:09:00, Duration: 30 day, Stop radha e: 03/31/14 0:08:00 Notes: (Same as: Zofran) Start Date: 03/01/14 Stop Date: 03/05/14 Status: Discontinued Zofran ODT 4 mg, 1 tab, Route: PO, Drug form: TABDIS, TID, Dosing Weight 81.81, kg, PRN as needed for nausea/vomiting, Start date: 03/01/14 15:36:00, Stop date: 03/31/14 1 5:35:00 Notes: (Same as: Zofran ODT) Start Date: 03/01/14 Stop Date: 03/05/14 Status: Discontinued zolpidem 5 mg, Route: PO, Drug form: TAB, Bedtime, Dosing Weight 81.81, kg, Start date: 0 03/01/14 21:00:00, Duration: 30 day, Stop date: 03/30/14 21:00:00 Start Date: 03/01/14 Stop Date: 03/01/14 Status: Deleted zolpidem 5 mg, 1 tab, Route: PO, Drug form: TAB, Bedtime, Dosing Weight 81.818, kg, PRN I nsomnia, Start date: 02/28/14 16:09:00, Stop date: 03/30/14 16:08:00 Notes: (Same As: Renzo) Start Date: 02/28/14 Stop Date: 03/05/14 Status: Discontinued Results BLOOD BANK RESULTS 1 2 3 Most recent to oldest [Reference Range]: O POS *Unknown* (03/02/14 10:52 AM) O POS *Unknown* (02/24/14 10:55 AM) ABO/Rh Negative (03/02/14 10:52 AM) Positive 1 (02/24/14 10:55 AM) Antibody Scrn Anti-E *Unknown* (02/24/14 11:00 AM) AB Int Product available 2 (03/02/14 7:11 AM) Product available (02/24/14 10:31 AM) RBC product 1Result Comment: 02/24/2014 14:45 [id number] "Significant Findings called to Og Altamirano at 02/24/2014 14:44 by ttn. Read Back OK." 2Result Comment: 03/02/2014 12:54 ELLE Called to Cydney at 03/02/2014 12:54. ELECTROLYTES 1 2 3 Most recent to oldest [Reference Range]: 143 mEq/L (03/05/14 11:04 AM) 141 mEq/L (03/04/14 6:22 AM) 136 mEq/L (03/03/14 6:10 AM) Sodium Lvl [135-145 mEq/L] 3.3 mEq/L *LOW* (03/05/14 11:04 AM) 3.7 mEq/L (03/04/14 6:22 AM) 3.8 mEq/L (03/03/14 6:10 AM) Potassium Lvl [3.5-5.1 mEq/L] 110 mEq/L *HI* (03/05/14 11:04 AM) 107 mEq/L (03/04/14 6:22 AM) 103 mEq/L (03/03/14 6:10 AM) Chloride Lvl [95-109 mEq/L] 28 mEq/L (03/05/14 11:04 AM) 22 mEq/L *LOW* (03/04/14 6:22 AM) 24 mEq/L (03/03/14 6:10 AM) CO2 [24-32 mEq/L] 8.3 mEq/L *LOW* (03/05/14 11:04 AM) 15.7 mEq/L (03/04/14 6:22 AM) 12.8 mEq/L (03/03/14 6:10 AM) AGAP [10.0-20.0 mEq/L] CHEM PANEL 1 2 3 Most recent to oldest [Reference Range]: 1.0 mg/dL (03/05/14 11:04 AM) 0.9 mg/dL (03/04/14 6:22 AM) 1.1 mg/dL (03/03/14 6:10 AM) Creatinine Lvl [0.5-1.4 mg/dL] 64 mL/min/1.73m2 3 *NA* (03/05/14 11:04 AM) 73 mL/min/1.73m2 4 *NA* (03/04/14 6:22 AM) 57 mL/min/1.73m2 5 *NA* (03/03/14 6:10 AM) eGFR 14 mg/dL (03/05/14 11:04 AM) 16 mg/dL (03/04/14 6:22 AM) 14 mg/dL (03/03/14 6:10 AM) BUN [7-22 mg/dL] 88 mg/dL 6 (03/05/14 11:04 AM) 60 mg/dL 7 *LOW* (03/04/14 6:22 AM) 90 mg/dL 8 (03/03/14 6:10 AM) Glucose Lvl [70-99 mg/dL] 7.4 mg/dL *LOW* (03/05/14 11:04 AM) 8.1 mg/dL *LOW* (03/04/14 6:22 AM) 8.2 mg/dL *LOW* (03/03/14 6:10 AM) Calcium Lvl [8.5-10.5 mg/dL] 2.1 mg/dL (03/03/14 6:10 AM) Magnesium Lvl [1.8-2.4 mg/dL] 3Result Comment: The eGFR is calculated using [...] be mul tiplied by the estimated BMI. 5Result Comment: The eGFR is calculated using the [...] be mul tiplied by the estimated BMI. 6Interpretive Data: Adult reference range values reflect the clinical guidelines of the [place] [employer]. 7Interpretive Data: Adult reference range values reflect the clinical guidelines of the [place] [employer]. 8Interpretive Data: Adult reference range values reflect the clinical guidelines of the [place] [employer]. HEMATOLOGY 1 2 3 Most recent to oldest [Reference Range]: 6.2 K/CMM (03/05/14 11:04 AM) 10.2 K/CMM (03/04/14 6:22 AM) 13.0 K/CMM *HI* (03/03/14 6:10 AM) WBC [3.7-10.4 K/CMM] 3.37 M/CMM *LOW* (03/05/14 11:04 AM) 3.64 M/CMM *LOW* (03/04/14 6:22 AM) 4.16 M/CMM *LOW* (03/03/14 6:10 AM) RBC [4.20-5.40 M/CMM] 9.7 g/dL *LOW* (03/05/14 11:04 AM) 10.7 g/dL *LOW* (03/04/14 6:22 AM) 10.7 g/dL *LOW* (03/04/14 6:22 AM) Hgb [12.0-16.0 g/dL] 29.1 % *LOW* (03/05/14 11:04 AM) 31.7 % *LOW* (03/04/14 6:22 AM) 31.7 % *LOW* (03/04/14 6:22 AM) Hct [36.0-48.0 %] 86.3 fL (03/05/14 11:04 AM) 87.2 fL (03/04/14 6:22 AM) 86.5 fL (03/03/14 6:10 AM) MCV [80.0-98.0 fL] 28.7 pg (03/05/14 11:04 AM) 29.3 pg (03/04/14 6:22 AM) 28.2 pg (03/03/14 6:10 AM) MCH [27.0-31.0 pg] 33.3 g/dL (03/05/14 11:04 AM) 33.6 g/dL (03/04/14 6:22 AM) 32.6 g/dL (03/03/14 6:10 AM) MCHC [32.0-36.0 g/dL] 14.6 % *HI* (03/05/14 11:04 AM) 15.0 % *HI* (03/04/14 6:22 AM) 14.7 % *HI* (03/03/14 6:10 AM) RDW [11.5-14.5 %] 289 K/CMM (03/05/14 11:04 AM) 285 K/CMM (03/04/14 6:22 AM) 266 K/CMM (03/03/14 6:10 AM) Platelet [133-450 K/CMM] 7.0 fL *LOW* (03/05/14 11:04 AM) 7.2 fL *LOW* (03/04/14 6:22 AM) 7.5 fL (03/03/14 6:10 AM) MPV [7.4-10.4 fL] 76.6 % *HI* (03/05/14 11:04 AM) 84.6 % *HI* (03/04/14 6:22 AM) 88.6 % *HI* (03/03/14 6:10 AM) Segs [45.0-75.0 %] 13.2 % *LOW* (03/05/14 11:04 AM) 8.9 % *LOW* (03/04/14 6:22 AM) 5.2 % *LOW* (03/03/14 6:10 AM) Lymphocytes [20.0-40.0 %] 9.1 % (03/05/14 11:04 AM) 6.2 % (03/04/14 6:22 AM) 6.1 % (03/03/14 6:10 AM) Monocytes [2.0-12.0 %] 0.7 % (03/05/14 11:04 AM) 0.1 % (03/03/14 6:10 AM) Eosinophils [0.0-4.0 %] 0.4 % (03/05/14 11:04 AM) 0.3 % (03/04/14 6:22 AM) Basophils [0.0-1.0 %] 4.7 K/CMM (03/05/14 11:04 AM) 8.6 K/CMM *HI* (03/04/14 6:22 AM) 11.5 K/CMM *HI* (03/03/14 6:10 AM) Segs-Bands # [1.5-8.1 K/CMM] 0.8 K/CMM *LOW* (03/05/14 11:04 AM) 0.9 K/CMM *LOW* (03/04/14 6:22 AM) 0.7 K/CMM *LOW* (03/03/14 6:10 AM) Lymphocytes # [1.0-5.5 K/CMM] 0.6 K/CMM (03/05/14 11:04 AM) 0.6 K/CMM (03/04/14 6:22 AM) 0.8 K/CMM (03/03/14 6:10 AM) Monocytes # [0.0-0.8 K/CMM] Normal (03/03/14 6:10 AM) RBC Morph Normal (03/03/14 6:10 AM) Plt Morph 15.0 seconds *HI* (03/04/14 6:22 AM) 13.3 seconds (02/28/14 11:44 PM) 11.8 seconds *LOW* (02/28/14 12:05 PM) PT [12.0-14.7 seconds] 1.17 9 (03/04/14 6:22 AM) 1.01 10 (02/28/14 11:44 PM) 0.87 11 (02/28/14 12:05 PM) INR [0.85-1.17] 32.6 seconds 12 (03/04/14 6:22 AM) 27.5 seconds 13 (02/28/14 11:44 PM) 27.1 seconds 14 (02/28/14 12:05 PM) PTT [22.9-35.8 seconds] 9Interpretive Data: RECOMMENDED RANGES FOR PROTIME INR: 2.0-3.0 for most medical and surgical thromboembolic states. 2.5-3.5 for artificial heart valves and recurrent embolism. INR SHOULD BE USED ONLY FOR PATIENTS ON STABLE ANTICOAGULANT THERAPY. 10Interpretive Data: RECOMMENDED RANGES FOR PROTIME INR: [...] Heparin Therapeutic Range: 57 - 92 Seconds 14Interpretive Data: Heparin Therapeutic Range: 57 - 92 Seconds Medications Administered During Your Visit No data available for this section Immunizations Vaccine Date Refusal Reason influenza virus vaccine, inactivated 04/22/13 pneumococcal 23-valent vaccine 04/22/13 Procedures Procedure Type Body Site Date of Procedure Related Diagnosis Insertion of Port-a-cath Social History Social History Type Response Alcohol Previous treatment: None Smoking Status Never smoker, Type: Cigarettes, Exposure to Tobacco Smoke None, Cigarette Smoking Last 365 Days No, Reg Smoking Cessation Counseling No Assessment and Plan Extracted from: Title: Clinical Document Author: Uli Montanez DO Date: 03/05/14 Progress Daily [facility] Completed: Feb, 12:13 by Uli Montanez DO RM: 245 - 1P, SE SNEHA [id number] (: 1960) F Attending: Uli Montanez DOPhone: Service: Internal Medicine Reason for Admission: 715.16/69332 Working DRG: Bone diseases & arthropathies w/o [facility] Code status: Full Code [Ordered]Current diet: Isolation: None Documented Allergies: Reglan, Talwin, sulfa drugs, penicillins, Keflex, iodine, Imodium A- D, Imitrex, Dexamethasone Sodium Phosphate, Demerol HCl, codeine, ciprofloxacin SUBJECTIVE Patient seen and examined. Events noted overnight. Labs/Images reviewed doing better, tolerating food OBJECTIVE Labs (Last four charted values) WBC 6.2(MAR 05)10.2(MAR 04)H 13.0(MAR 03) Hgb L 9.7(MAR 05)L 10.7(MAR 04)L 10.7(MAR 04)L 11.1(MAR 03) Hct L 29.1(MAR 05)L 31.7(MAR 04)L 31.7(MAR 04)L 33.9(MAR 03) Plt 289(MAR 05)285(MAR 04)266(MAR 03)265(FEB 28) Na 143(MAR 05)141(MAR 04)136(MAR 03) K L 3.3(MAR 05)3.7(MAR 04)3.8(MAR 03) CO2 28(MAR 05)L 22(MAR 04)24(MAR 03) Cl H 110(MAR 05)107(MAR 04)103(MAR 03) Cr 1.0(MAR 05)0.9(MAR 04)1.1(MAR 03)1.2(FEB 28) BUN 14(MAR 05)16(MAR 04)14(MAR 03) Glucose Random 88(MAR 05)L 60(MAR 04)90(MAR 03) Mg 2.1(MAR 03) Ca L 7.4(MAR 05)L 8.1(MAR 04)L 8.2(MAR 03) PT H 15.0(MAR 04)13.3(FEB 28)L 11.8(FEB 28) INR 1.17(MAR 04)1.01(FEB 28)0.87(FEB 28) PTT 32.6(MAR 04)27.5(FEB 28)27.1(FEB 28) ASSESSMENT & EXAM Gen: NAD, Alert, Awake HEENT: NC/AT, PERRLA, oral area clear and moist Neck: No LAD, No JVD, trachea midline Chest: CTAB, no c/w/r CV: RRR, S1, S2 GI: +BS, S, NT, ND, No organomegaly Ext: no c/c/e Neuro: AOx3, no gross deficits noted Skin: No notable rashes PLAN & TREATMENT diet advanced GI series - delayed transit, no strictures ok to d/c home resume anticoagulation for knee DIAGNOSES & PROBLEMS Hematoemesis Severe OA S/P Left TKA Post op anemia of acute blood loss Chronic N/V HTN Fibromialgia Ready for Discharge (Yes/No)? Deal still necessary (Yes/No): Line still necessary (Yes/No): 24hr Labs 03/05 1104 Glucose Lvl88 BUN14 Creatinine Lvl1.0 Sodium Blv469 Potassium Lvl3.3 L Chloride Cub686 H CO228 AGAP8.3 L Calcium Lvl7.4 L eGFR64 WBC6.2 RBC3.37 L Hgb9.7 L Hct29.1 L MCV86.3 MCH28.7 MCHC33.3 RDW14.6 H Qawrbauw528 MPV7.0 L Segs76.6 H Monocytes9.1 Lwdjmhwffni09.2 L Eosinophils0.7 Basophils0.4 Segs-Bands #4.7 Lymphocytes #0.8 L Monocytes #0.6 VitalsTmp(F)YovrrCVBLSfH9UWC1 03/05 08:[id number]/[id number]--- 03/05 04:2897.000666/[id number]--- 03/05 00:0298.027920/972016--- 03/04 20:2098.866491/[id number]--- 03/04 16:5598.554175/[id number]--- 24 Hr Tmax: 98.7F (37.06c) at 03/04 20:20Vital Signs are the last 5 in the past 48 hours. DateWt(kg)Wt(lb)Ht(cm)Ht(in)Method 02/28 81.81 179.98Measured 02/24 (initial) 81.82 180.00Measured 72.72 68.00Stated I&ORecordInOutBal 02/2523hr Tot 120 0 120 02/2423hr Tot 444 0 444 Medications (37) Active [...] tablet) 1 tab PO Q4H 02/28/14 acetaminophen-hydrocodone ([place] 10/325 oral tablet) 2 tab PO Q6H [...] 1000 mL) 1,000 mL 80 ml/hr Extracted from: Title: Clinical Document Author: Sujey Penn MD Date: 02/28/14 OPERATIVE REPORT PATIENT NAME:Sneha Carlisle DATE OF PROCEDURE: 02/28/2014 PREOPERATIVE DIAGNOSIS: Left Knee Osteoarthritis. POSTOPERATIVE DIAGNOSIS: Left Knee Osteoarthritis. NAME OF PROCEDURE: Left Total Knee Arthroplasty. SURGEON(s): Dr. Sujey Penn. MEDIA SERVICES DIRECTOR: STERLING [place]. Please note that it was medically necessary to have a knowledgeable assistant department manager present for the case. Rosy was present [...]
--- OUTSIDE RECORDS SUMMARY | 2018-10-11 16:25 | XMS REPORT | Summary of Care ---
Author Organization Unknown Address Unknown Phone Unavailable Encounter HQ Edie_paula(GRADY) [id number] Date(s): 07/24/14 - 07/24/14 [facility] [address] [place] [address]- [phone] Discharge Disposition: Home Physician Attending: Nelson Krause DO Physician_Referring: Nelson Krause DO Vital Signs Most recent to 1 oldest [Reference Range]: Height 162.56 cm (07/24/14 12:55 PM) Weight 66.818 kg (07/24/14 12:55 PM) Body Mass Index 25.29 m2 (07/24/14 12:55 PM) Problem List Condition Effective Dates Status Health Status Informant Abdominal pain1 01/24/14 Active Antiphospholipid Active syndrome(Confirmed) Barretts Active esophagus(Confirmed) Cataracts(Confirmed) Active Chondromalacia of Active patella(Confirmed)2 Chronic Active nausea(Confirmed) Constipation(Confirm Active ed) Depression(Confirmed Active ) Dysphagia(Confirmed) Active Fibromyalgia(Confirm Active ed) Hypertension(Confirm Active ed) Lupus (systemic Active lupus erythematosus)(Confi rmed) Malnutrition(Confirm Active ed) Nausea and Resolved vomiting(Confirmed)3 Osteoporosis(Confirm Active ed) Pernicious Active anemia(Confirmed) Renal Resolved impairment(Confirmed )4 Scleroderma(Confirme Active d) 1Data migrated from [employer] on 07/08/14. 2bilat 3chronic per pt report 4per pt report Allergies, Adverse Reactions, Alerts Substance Reaction Severity Status benzoin topical tincture Active cephalexin1 Active ciprofloxacin2 Active codeine Active Demerol [...] 06/08/14. Originally documented as IMITREX. hives Medications [place] 10/325 oral tablet 1 tab, PO, Q6H, PRN for pain, # 24 tab, 0 Refill(s) Start Date: 07/24/14 Stop Date: 07/30/14 Status: Ordered Results No data available for this section Immunizations Vaccine Date Refusal Reason influenza virus vaccine, inactivated 04/22/13 pneumococcal 23-valent vaccine 04/22/13 Procedures Procedure Date Related Diagnosis Body Site Appendectomy1 Bilateral oophorectomy section2 Cholecystectomy Gastrectomy Gastrectomy3 Hysterectomy Insertion of Port-a-cath Nephrectomy4 Operation5 Operation6 Operation7 Operation8 Operation9 ORIF - Open reduction and internal fixation of fzgfpiqb08 Removal of Slpd-q-srkb09 Tonsillectomy Total knee abtuovuishc41 02329 2x1 3complete 4right 9ncjm-l-gujo placement 6lasik procedure 7right hip surgery S/P fracture 8multiple colon surgery and exploratory laparotomy, 9multiple adhesion surgeries 10right leg sx site clean dry, no redness, intact, healing, mild bruising noted AISHAATA RN 120/2014 Social History Social History Type Response Alcohol Previous treatment: None. Smoking Status Never smoker; Type: Cigarettes; Exposure to Tobacco Smoke None; Cigarette Smoking Last 365 Days No; Reg Smoking Cessation Counseling No Assessment and Plan Extracted from: Title: IR Portacath Placement Author: Greg Maguire MD Date: 07/24/14 PROCEDURE REQUESTED: Portacath Placement REQUESTING PHYSICIAN: Nelson Krause DO HISTORY/INDICATIONS: Malnutrition with inadequate oral fluid intake. Needs long-term venous access for fluids. Had left subclavian [...]
--- OUTSIDE RECORDS SUMMARY | 2018-10-11 16:25 | XMS REPORT | Summary of Care ---
Author Organization Unknown Address Unknown Phone Unavailable Encounter HQ Edie_paula(GRADY) [id number] Date(s): 05/26/14 - 05/26/14 [facility] [address] [place] [address]- Discharge Disposition: Home Physician Attending: Nelson Krause DO Physician_Referring: Nelson Krause DO Vital Signs Most recent to 1 oldest [Reference Range]: Height 162.56 cm (05/26/14 1:25 PM) Weight 65.909 kg (05/26/14 1:25 PM) Body Mass Index 24.94 m2 (05/26/14 1:25 PM) Problem List Condition Effective Dates Status [...] Active sulfa drugs Active Talwin Active Medications No data available for this section Results No data available for this section Immunizations Vaccine Date Refusal Reason influenza virus vaccine, inactivated 04/22/13 pneumococcal 23-valent vaccine 04/22/13 Procedures Procedure Date Related Diagnosis Body Site Bilateral oophorectomy section1 Cholecystectomy Gastrectomy Gastrectomy2 Hysterectomy Insertion of Port-a-cath Nephrectomy3 Operation4 Operation5 Operation6 Operation7 Operation8 ORIF - Open reduction and internal fixation of fracture9 Tonsillectomy 1x1 2complete 3right 7twwo-s-tter placement 5lasik procedure 6right hip surgery S/P fracture 7multiple colon surgery and exploratory laparotomy, 8multiple adhesion surgeries 9right leg Social History Social History Type Response Alcohol Previous treatment: None. Smoking Status Never smoker; Type: Cigarettes; Exposure to Tobacco Smoke None; Cigarette Smoking Last 365 Days No; Reg Smoking Cessation Counseling No Assessment and Plan No data available for this section
--- OUTSIDE RECORDS SUMMARY | 2018-10-11 16:25 | XMS REPORT | Summary of Care ---
Author Author [facility] Organization [facility] Address Unknown Phone Unavailable Encounter RICKI Candelario(GRADY) [id number] Date(s): 01/19/18 - 01/19/18 [facility] [address] [place] [address]- Encounter Diagnosis Other mechanical complication of infusion catheter, initial encounter (Final) - 02/15/18 Personal history of anaphylaxis (Final) - Radiographic dye allergy status (Final) - Discharge Disposition: Home or Self Care Attending Physician: Melisa Espinoza MD Referring Physician: Melisa Espinoza MD Vital Signs No data available for this section Problem List Condition Effective Dates Status Health [...] 06/08/14. Originally documented as IMITREX. hives Medications No data available for this section Results No data available for this section Immunizations Given and Recorded Vaccine Date Status Refusal Reason influenza virus vaccine, inactivated 04/22/13 Given pneumococcal 23-valent vaccine 04/22/13 Given Procedures Procedure Date Related Diagnosis Body Site Status Insertion of Clza-k-pxjx7 03/13/17 Completed Removal of Port-a-cath and groshong cath 02/21/17 Completed placement2 Appendectomy3 Completed Bilateral oophorectomy Completed section4 Completed Cholecystectomy Completed Gastrectomy Completed Gastrectomy5 Completed Gastric stapling Completed Hysterectomy Completed Insertion of Port-a-cath Completed Nephrectomy6 Completed Operation7 Completed Operation8 Completed Operation9 Completed Ateecnbmz85 Completed Pqggreowo75 Completed ORIF - Open reduction and internal fixation Completed of qjhhkrse01 Removal of Cdiu-v-rube09 Completed Tonsillectomy Completed Total knee ziaohfvutfa41 Completed 1removal of groshong cath 2Removal of Port-a-cath and groshong cath placement 12523 4x1 5complete 6right 7lasik procedure 8multiple colon surgery and exploratory laparotomy, 9right hip surgery S/P fracture 10multiple adhesion surgeries 05bxrv-x-nfau placement 12right leg sx site clean dry, no redness, intact, healing, mild bruising noted RAUL RN 140/2014 Social History Social History Type Response Substance [...]
--- OUTSIDE RECORDS SUMMARY | 2018-10-11 16:25 | XMS REPORT | Summary of Care ---
Author Author [facility] Organization [facility] Address Unknown Phone Unavailable Encounter RICKI Candelario(GRADY) [id number] Date(s): 09/18/14 - 09/22/14 [facility] [address] [place] [address]- [phone] Discharge Disposition: Home Attending Physician: Sujey Penn MD Admitting Physician: Sujey Penn MD Vital Signs 1 2 3 Most recent to oldest [Reference Range]: 162.56 cm (09/18/14 10:28 PM) 162.56 cm (09/18/14 5:30 PM) Height 1 2 3 Most recent to oldest [Reference Range]: 69.659 kg (09/18/14 10:28 PM) Current Weight 1 2 3 Most recent to oldest [Reference Range]: 98.1 DegF (09/22/14 4:03 PM) 97.9 DegF (09/22/14 12:03 PM) 98.6 DegF (09/22/14 7:43 AM) Temperature Oral [96.4-99.1 DegF] 1 2 3 Most recent to oldest [Reference Range]: 110/72 mmHg (09/22/14 4:03 PM) 111/72 mmHg (09/22/14 12:03 PM) 114/67 mmHg (09/22/14 7:43 AM) Blood Pressure [90-140/60-90 mmHg] 1 2 3 Most recent to oldest [Reference Range]: 16 BRMIN (09/22/14 4:03 PM) 16 BRMIN (09/22/14 12:03 PM) 14 BRMIN (09/22/14 7:43 AM) Respiratory Rate [14-20 BRMIN] 1 2 3 Most recent to oldest [Reference Range]: 98 bpm (09/22/14 4:03 PM) 106 bpm *HI* (09/22/14 12:03 PM) 87 bpm (09/22/14 7:43 AM) Peripheral Pulse Rate [60-100 bpm] 1 2 3 Most recent to oldest [Reference Range]: 69.574 kg (09/19/14 10:33 AM) 68.182 kg (09/18/14 5:30 PM) Weight 1 2 3 Most recent to oldest [Reference Range]: 25.8 m2 (09/18/14 5:30 PM) Body Mass Index Problem List Condition Effective Dates Status Health Status Informant Abdominal pain1 01/24/14 Active Abdominal Resolved pain(Confirmed) Abnormal coagulation Active time(Confirmed) Abnormal coagulation Resolved time(Confirmed) Anti-phospholipid Resolved syndrome(Confirmed) Antiphospholipid Active syndrome(Confirmed) Barretts Active esophagus(Confirmed) Cataracts(Confirmed) Active Chondromalacia of Active patella(Confirmed)2 Chronic Active nausea(Confirmed) Complete Resolved gastrectomy(Confirme d) Constipation(Confirm Active ed) Depression(Confirmed Active ) Depression(Confirmed Active ) Diffuse disease of Resolved connective tissue(Confirmed) Dysphagia(Confirmed) Active Dysphagia(Confirmed) Resolved Fibromyalgia(Confirm Active ed) Hypertension(Confirm Active ed) Lupus (systemic Active lupus erythematosus)(Confi rmed) Malnutrition(Confirm Active ed) Malnutrition(Confirm Active ed) Nausea and Active vomiting(Confirmed)3 Obstruction(Confirme Resolved d)4 Osteoporosis(Confirm Active ed) Pernicious Active anemia(Confirmed) Renal Active impairment(Confirmed )5 Scleroderma(Confirme Active d) 1Data migrated from [employer] on 07/08/14. 2bilat 3chronic per pt report 4abdominal obstruction. 5per pt report Allergies, Adverse Reactions, Alerts Substance Reaction Severity Status benzoin topical tincture Active cephalexin1 Active ciprofloxacin2 Active codeine Active contrast media Active (iodine-based) Demerol HCl Active Dexamethasone Sodium Active Phosphate Imitrex Active Imodium A-D Active iodine topical Active Keflex Active loperamide3 Active meperidine4 Active penicillins5 Active pentazocine6 Active Reglan Active sulfa drugs7 Active SUMAtriptan8 Active Talwin Active 1Data migrated from [employer] on 06/08/14. Originally documented as KEFLEX. hives 2Data migrated from [employer] on 06/08/14. Originally documented as CIPRO. hives 3Data migrated from [employer] on 06/08/14. Originally documented as IMMODIUM. hives 4Data migrated from [employer] on 06/08/14. Originally documented as DEMEROL. hives 5Data migrated from [employer] on 09/07/14. Originally documented as PENICILLIN. hives 6Data migrated from [employer] on 06/08/14. Originally documented as TALWIN. hives 7Data migrated from [employer] on 09/07/14. Originally documented as SULFA. hives 8Data migrated from [employer] on 06/08/14. Originally documented as IMITREX. hives Medications acetaminophen-hydrocodone 325 mg-10 mg oral tablet 2 tab, Route: PO, Drug Form: TAB, Dosing Weight 68.182, kg, Q4H, PRN Pain Score 4-6, Start date: 09/18/14 21:20:00, Duration: 30 day, Stop date: 10/18/14 21:19: 00 Notes: Do not exceed 4gm/day of acetaminophen. (Same as: [place] 325/10) Start Date: 09/18/14 Stop Date: 09/22/14 Status: Discontinued acetaminophen-hydrocodone 325 mg-10 mg oral tablet 1 tab, Route: PO, Drug Form: TAB, Dosing Weight 68.182, kg, Q4H, PRN Pain Score 1-3, Start date: 09/18/14 21:20:00, Duration: 30 day, Stop date: 10/18/14 21:19: 00 Notes: Do not exceed 4gm/day of acetaminophen. (Same as: [place] 325/10) Start Date: 09/18/14 Stop Date: 09/22/14 Status: Discontinued Ativan 4 mg, 4 tab, Route: PO, Drug form: TAB, Bedtime, Dosing Weight 68.182, kg, PRN a s needed for anxiety, Start date: 09/19/14 7:58:00, Duration: 30 day, Stop date: 10/19/14 7:57:00 Notes: (Same as: Ativan) Start Date: 09/19/14 Stop Date: 09/22/14 Status: Discontinued BD Normal Saline Flush 10 mL, Route: IV, Drug Form: INJ, ONCALL, Start date: 09/22/14 14:00:00, Duratio n: 30 day, Stop date: 10/22/14 13:59:00 Notes: (Same as: BD Posiflush) Start Date: 09/22/14 Stop Date: 09/22/14 Status: Discontinued BD Normal Saline Flush 20 mL, Route: IV, Drug Form: INJ, ONCALL, Start date: 09/22/14 14:00:00, Duratio n: 30 day, Stop date: 10/22/14 13:59:00 Notes: (Same as: BD Posiflush) Start Date: 09/22/14 Stop Date: 09/22/14 Status: Discontinued Bentyl 10 mg, 5 mL, Route: PO, Drug form: SYRP, Q4H, Dosing Weight 68.182, kg, PRN See Nurse's Notes, Start date: 09/19/14 8:21:00, Duration: 30 day, Stop date: 8:20:00, abdominal pain Notes: (Same as: Bentyl) Start Date: 09/19/14 Stop Date: 09/22/14 Status: Discontinued Cymbalta 150 mg, 5 cap, Route: PO, Drug form: DRC, Bedtime, Dosing Weight 68.182, kg, Sta rt date: 09/19/14 21:00:00, Duration: 30 day, Stop date: 10/18/14 21:00:00 Notes: (Same as: Cymbalta) (Do Not Crush) Start Date: 09/19/14 Stop Date: 09/22/14 Status: Discontinued D5W 1/2NS 1,000 mL 1,000 mL, Rate: 80 ml/hr, Infuse over: 12.5 hr, Route: IV, Dosing Weight 69.574 kg, Total Volume: 1,000, Start date: 09/20/14 18:08:00, Duration: 30 day, Stop d ate: 10/20/14 18:07:00 Start Date: 09/20/14 Stop Date: 09/22/14 Status: Discontinued Dextrose 5% with 0.9% NaCl IV 1,000 mL 1,000 mL, Rate: 125 ml/hr, Infuse over: 8 hr, Route: IV, Dosing Weight 68.182 kg , Total Volume: 1,000, Start date: 09/18/14 21:20:00, Stop date: 10/18/14 21:19: 00 Start Date: 09/18/14 Stop Date: 09/20/14 Status: Discontinued Dilaudid 0.5 mg, 0.5 mL, Route: IVP, Drug form: INJ, ONCE, Dosing Weight 68.182, kg, Prio rity: STAT, Start date: 09/18/14 18:30:00, Stop date: 09/18/14 18:30:00 Start Date: 09/18/14 Stop Date: 09/18/14 Status: Completed Diovan 160 mg, 1 tab, Route: PO, Drug form: TAB, Bedtime, Dosing Weight 68.182, kg, Sta rt date: 09/19/14 21:00:00, Duration: 30 day, Stop date: 10/18/14 21:00:00 Notes: Same as Diovan Start Date: 09/19/14 Stop Date: 09/22/14 Status: Discontinued enoxaparin 30 mg, 0.3 mL, Route: SUB-Q, Drug form: INJ, uafxH14V, Dosing Weight 68.182, kg, Start date: 09/18/14 22:00:00, Duration: 30 day, Stop date: 10/18/14 10:00:00 Notes: (Same as: Lovenox) Start Date: 09/18/14 Stop Date: 09/22/14 Status: Discontinued heparin flush 500 unit, 5 mL, Route: IV, Drug form: SOLErickson ONCALL, Start date: 09/22/14 14:00:0 0, Duration: 30 day, Stop date: 10/22/14 13:59:00 Notes: (Same as: Heparin Lock Flush) Start Date: 09/22/14 Stop Date: 09/22/14 Status: Discontinued hydromorphone 0.5 mg, 0.5 mL, Route: IVP, Drug form: INJ, Q4H, Dosing Weight 68.182, kg, PRN P ain Score 7-10, Start date: 09/18/14 21:20:00, Duration: 30 day, Stop date: 10/24 21:19:00 Start Date: 09/18/14 Stop Date: 09/22/14 Status: Discontinued Lipitor 10 mg, 1 tab, Route: PO, Drug form: TAB, Bedtime, Start date: 09/19/14 21:00:00, Duration: 30 day, Stop date: 10/18/14 21:00:00 Notes: (Same As: Lipitor) Start Date: 09/19/14 Stop Date: 09/22/14 Status: Discontinued lovastatin 20 mg, Route: PO, Drug form: TAB, Bedtime, Dosing Weight 68.182, kg, Start date: 09/19/14 21:00:00, Duration: 30 day, Stop date: 10/18/14 21:00:00 Start Date: 09/19/14 Stop Date: 09/19/14 Status: Deleted Norvasc 10 mg, 2 tab, Route: PO, Drug form: TAB, Bedtime, Dosing Weight 68.182, kg, Star t date: 09/19/14 21:00:00, Duration: 30 day, Stop date: 10/18/14 21:00:00 Notes: (Same as: Norvasc) Start Date: 09/19/14 Stop Date: 09/22/14 Status: Discontinued ondansetron 4 mg, 2 mL, Route: IVP, Drug form: INJ, Q24H, Dosing Weight 68.182, kg, PRN Naus ea & Vomiting, Start date: 09/18/14 21:20:00, Duration: 30 day, Stop date: 10/18/14 21:19:00 Notes: (Same as: Zofran) MEDICATION WASTE Product Size: 4 mgProduct Was layla: ___ mg Start Date: 09/18/14 Stop Date: 09/19/14 Status: Discontinued ondansetron 4 mg, 2 mL, Route: IVP, Drug form: INJ, Q4H, Dosing Weight 68.182, kg, PRN Nause a & Vomiting, Start date: 09/19/14 3:09:00, Duration: 30 day, Stop date: 10/19/14 3:08:00 Notes: (Same as: Zofran) MEDICATION WASTE Product Size: 4 mgProduct Was layla: ___ mg Start Date: 09/19/14 Stop Date: 09/22/14 Status: Discontinued Phenergan 6.25 mg, 0.5 tab, Route: PO, Drug form: TAB, Q6H, Dosing Weight 69.574, kg, PRN Nausea & Vomiting, Start date: 09/20/14 8:16:00, Duration: 30 day, Stop date: 10/20/14 8:15:00 Notes: (Same as: Phenergan) Start Date: 09/20/14 Stop Date: 09/22/14 Status: Discontinued Proventil HFA 90 mcg/inh inhalation aerosol with adapter 2 puff, Route: INHALATION, Drug Form: AERO/A, Dosing Weight 68.182, kg, QID, PRN as needed for wheezing, Start date: 09/19/14 7:58:00, Duration: 30 day, Stop da te: 10/19/14 7:57:00 Notes: Albuterol 90 microgram/inh 8gm HFA Same as: Ventolin, Proventil Start Date: 09/19/14 Stop Date: 09/22/14 Status: Discontinued Remeron SolTab 90 mg, 6 tab, Route: PO, Drug form: TAB, Bedtime, Dosing Weight 68.182, kg, Star t date: 09/19/14 21:00:00, Duration: 30 day, Stop date: 10/18/14 21:00:00 Notes: (Same as:Remeron) Start Date: 09/19/14 Stop Date: 09/22/14 Status: Discontinued Saline Flush 0.9% 10 ml, Route: IVP, Drug Form: INJ, Dosing Weight 68.182, kg, PRN, PRN Line Flush , Start date: 09/18/14 21:20:00, Duration: 30 day, Stop date: 10/18/14 21:19:00 Notes: (Same as: BD Posiflush) Start Date: 09/18/14 Stop Date: 09/22/14 Status: Discontinued Topamax 200 mg, 2 tab, Route: PO, Drug form: TAB, Bedtime, Dosing Weight 68.182, kg, Sta rt date: 09/19/14 21:00:00, Duration: 30 day, Stop date: 10/18/14 21:00:00 Notes: (Same As: Topamax)"Do Not Crush" Start Date: 09/19/14 Stop Date: 09/22/14 Status: Discontinued Vitamin B12 1,000 microgram, 1 mL, Route: IM, Drug form: INJ, QFri, Dosing Weight 68.182, kg , Start date: 09/22/14 9:00:00, Duration: 30 day, Stop date: 10/20/14 9:00:00 Notes: (Same As: Vitamin B12) Start Date: 09/22/14 Stop Date: 09/22/14 Status: Discontinued Zofran ODT 4 mg, 1 tab, Route: PO, Drug form: TABDIS, TID, Dosing Weight 68.182, kg, PRN as needed for nausea/vomiting, Start date: 09/19/14 7:59:00, Duration: 30 day, Stop date: 10/19/14 7:58:00 Notes: (Same as: Zofran ODT) Start Date: 09/19/14 Stop Date: 09/22/14 Status: Discontinued Results BLOOD BANK RESULTS 1 2 3 Most recent to oldest [Reference Range]: O POS *Unknown* (09/18/14 8:03 PM) ABO/Rh Negative (09/18/14 8:03 PM) Antibody Scrn ELECTROLYTES 1 2 3 Most recent to oldest [Reference Range]: 138 mEq/L (09/22/14 5:57 AM) 141 mEq/L (09/20/14 5:58 AM) 142 mEq/L (09/18/14 8:03 PM) Sodium Lvl [135-145 mEq/L] 3.6 mEq/L (09/22/14 5:57 AM) 3.7 mEq/L (09/20/14 5:58 AM) 4.1 mEq/L (09/18/14 8:03 PM) Potassium Lvl [3.5-5.1 mEq/L] 116 mEq/L *HI* (09/22/14 5:57 AM) 110 mEq/L *HI* (09/20/14 5:58 AM) 110 mEq/L *HI* (09/18/14 8:03 PM) Chloride Lvl [95-109 mEq/L] 24 mEq/L (09/22/14 5:57 AM) 25 mEq/L (09/20/14 5:58 AM) 26 mEq/L (09/18/14 8:03 PM) CO2 [24-32 mEq/L] 1.6 mEq/L *LOW* (09/22/14 5:57 AM) 9.7 mEq/L *LOW* (09/20/14 5:58 AM) 10.1 mEq/L (09/18/14 8:03 PM) AGAP [10.0-20.0 mEq/L] CHEM PANEL 1 2 3 Most recent to oldest [Reference Range]: 1.0 mg/dL (09/22/14 5:57 AM) 0.8 mg/dL (09/20/14 5:58 AM) 0.9 mg/dL (09/18/14 8:03 PM) Creatinine Lvl [0.5-1.4 mg/dL] 64 mL/min/1.73m2 1 *NA* (09/22/14 5:57 AM) 83 mL/min/1.73m2 2 *NA* (09/20/14 5:58 AM) 72 mL/min/1.73m2 3 *NA* (09/18/14 8:03 PM) eGFR 10 mg/dL (09/22/14 5:57 AM) 10 mg/dL (09/20/14 5:58 AM) 15 mg/dL (09/18/14 8:03 PM) BUN [7-22 mg/dL] 74 mg/dL (09/22/14 5:57 AM) 124 mg/dL *HI* (09/20/14 5:58 AM) 90 mg/dL (09/18/14 8:03 PM) Glucose Lvl [70-99 mg/dL] 7.8 mg/dL *LOW* (09/22/14 5:57 AM) 7.2 mg/dL *LOW* (09/20/14 5:58 AM) 7.3 mg/dL *LOW* (09/18/14 8:03 PM) Calcium Lvl [8.5-10.5 mg/dL] 1Result Comment: The eGFR is calculated using the [...] be mul tiplied by the estimated BMI. 2Result Comment: The eGFR is calculated using [...] 3 Most recent to oldest [Reference Range]: 4.7 K/CMM (09/22/14 5:57 AM) 5.6 K/CMM (09/20/14 5:58 AM) 7.0 K/CMM (09/18/14 8:03 PM) WBC [3.7-10.4 K/CMM] 3.38 M/CMM *LOW* (09/22/14 5:57 AM) 3.26 M/CMM *LOW* (09/20/14 5:58 AM) 3.35 M/CMM *LOW* (09/18/14 8:03 PM) RBC [4.20-5.40 M/CMM] 10.5 g/dL *LOW* (09/22/14 5:57 AM) 9.9 g/dL *LOW* (09/20/14 5:58 AM) 10.3 g/dL *LOW* (09/18/14 8:03 PM) Hgb [12.0-16.0 g/dL] 31.5 % *LOW* (09/22/14 5:57 AM) 29.9 % *LOW* (09/20/14 5:58 AM) 30.6 % *LOW* (09/18/14 8:03 PM) Hct [36.0-48.0 %] 93.1 fL (09/22/14 5:57 AM) 91.6 fL (09/20/14 5:58 AM) 91.1 fL (09/18/14 8:03 PM) MCV [80.0-98.0 fL] 31.0 pg (09/22/14 5:57 AM) 30.4 pg (09/20/14 5:58 AM) 30.8 pg (09/18/14 8:03 PM) MCH [27.0-31.0 pg] 33.3 g/dL (09/22/14 5:57 AM) 33.1 g/dL (09/20/14 5:58 AM) 33.8 g/dL (09/18/14 8:03 PM) MCHC [32.0-36.0 g/dL] 13.7 % (09/22/14 5:57 AM) 13.5 % (09/20/14 5:58 AM) 13.6 % (09/18/14 8:03 PM) RDW [11.5-14.5 %] 261 K/CMM (09/22/14 5:57 AM) 278 K/CMM (09/20/14 5:58 AM) 293 K/CMM (09/18/14 8:03 PM) Platelet [133-450 K/CMM] 8.3 fL (09/22/14 5:57 AM) 7.8 fL (09/20/14 5:58 AM) 7.9 fL (09/18/14 8:03 PM) MPV [7.4-10.4 fL] 59.5 % (09/22/14 5:57 AM) 82.8 % *HI* (09/20/14 5:58 AM) 80.9 % *HI* (09/18/14 8:03 PM) Segs [45.0-75.0 %] 25.8 % (09/22/14 5:57 AM) 10.0 % *LOW* (09/20/14 5:58 AM) 9.5 % *LOW* (09/18/14 8:03 PM) Lymphocytes [20.0-40.0 %] 7.2 % (09/22/14 5:57 AM) 5.0 % (09/20/14 5:58 AM) 6.3 % (09/18/14 8:03 PM) Monocytes [2.0-12.0 %] 5.3 % *HI* (09/22/14 5:57 AM) 1.7 % (09/20/14 5:58 AM) 2.7 % (09/18/14 8:03 PM) Eosinophils [0.0-4.0 %] 2.2 % *HI* (09/22/14 5:57 AM) 0.5 % (09/20/14 5:58 AM) 0.6 % (09/18/14 8:03 PM) Basophils [0.0-1.0 %] 2.8 K/CMM (09/22/14 5:57 AM) 4.6 K/CMM (09/20/14 5:58 AM) 5.7 K/CMM (09/18/14 8:03 PM) Segs-Bands # [1.5-8.1 K/CMM] 1.2 K/CMM (09/22/14 5:57 AM) 0.6 K/CMM *LOW* (09/20/14 5:58 AM) 0.7 K/CMM *LOW* (09/18/14 8:03 PM) Lymphocytes # [1.0-5.5 K/CMM] 0.3 K/CMM (09/22/14 5:57 AM) 0.3 K/CMM (09/20/14 5:58 AM) 0.4 K/CMM (09/18/14 8:03 PM) Monocytes # [0.0-0.8 K/CMM] 0.3 K/CMM (09/22/14 5:57 AM) 0.1 K/CMM (09/20/14 5:58 AM) 0.2 K/CMM (09/18/14 8:03 PM) Eosinophils # [0.0-0.5 K/CMM] 0.1 K/CMM (09/22/14 5:57 AM) Basophils # [0.0-0.2 K/CMM] 13.9 seconds (09/18/14 8:03 PM) PT [12.0-14.7 seconds] 1.07 (09/18/14 8:03 PM) INR [0.85-1.17] 29.2 seconds (09/18/14 8:03 PM) PTT [22.9-35.8 seconds] Immunizations Vaccine Date Refusal Reason influenza virus vaccine, inactivated 04/22/13 pneumococcal 23-valent vaccine 04/22/13 Procedures Procedure Date Related Diagnosis Body Site Appendectomy1 Bilateral oophorectomy section2 Cholecystectomy Gastrectomy Gastrectomy3 Gastric stapling Hysterectomy Insertion of Port-a-cath Nephrectomy4 Operation5 Operation6 Operation7 Operation8 Operation9 ORIF - Open reduction and internal fixation of [id number] Removal of [id number] Tonsillectomy Total knee [id number] 2x1 3complete 4right 0enlj-j-jqbs placement 6lasik procedure 7right hip surgery S/P fracture 8multiple colon surgery and exploratory laparotomy, 9multiple adhesion surgeries 10right leg sx site clean dry, no redness, intact, healing, mild bruising noted RAUL RN 1201/2014 Social History Social History Type Response Substance Abuse Use: None. Sexual Sexually active: No. Exercise 1 Employment/School 2 Alcohol Previous treatment: None. Smoking Status Never smoker; Exposure to Tobacco Smoke None; Cigarette Smoking Last 365 Days No; Reg Smoking Cessation Counseling No 1No work with PT people S/P ORIF last month. 2none Assessment and Plan Extracted from: Title: Clinical Document Author: Gianfranco Reed MD Date: 09/22/14 IPC Daily Progress Note [facility] Gianfranco Reed MD SUBJECTIVE: Pt seen and exam'd. Events noted. Following up fracture, anemia. OBJECTIVE: Vitals and Temp: VitalsTmp(F)[id number] 09/22 12:[id number]/7216------ 09/22 07:4398.838312/692581--- 09/22 04:[id number]/102850--- 09/21 23:2498.901617/7717------ 09/21 20:[id number]--- 24 Hr Tmax: 98.6F (37.00c) at 09/22 07:43Vital Signs are the last 5 in the past 48 hours. Input/Output RecordInOutBal 4hr Tot 211 [id number] 1324hr Tot 962 800 162 Labs (Last four charted values) WBC 4.7(SEP 22)5.6(SEP 20)7.0(SEP 18) Hgb L 10.5(SEP 22)L 9.9(SEP 20)L 10.3(SEP 18) Hct L 31.5(SEP 22)L 29.9(SEP 20)L 30.6(SEP 18) Plt 261(SEP 22)278(SEP 20)293(SEP 18) Na 138(SEP 22)141(SEP 20)142(SEP 18) K 3.6(SEP 22)3.7(SEP 20)4.1(SEP 18) CO2 24(SEP 22)25(SEP 20)26(SEP 18) Cl H 116(SEP 22)H 110(SEP 20)H 110(SEP 18) Cr 1.0(SEP 22)0.8(SEP 20)0.9(SEP 18) BUN 10(SEP 22)10(SEP 20)15(SEP 18) Glucose Random 74(SEP 22)H 124(SEP 20)90(SEP 18) Ca L 7.8(SEP 22)L 7.2(SEP 20)L 7.3(SEP 18) PT 13.9(SEP 18) INR 1.07(SEP 18) PTT 29.2(SEP 18) Medications Scheduled Meds (8):DULoxetine (Cymbalta), amLODIPine [...] warm/ dry/ intact Neuropsych: mentation appropriate. ASSESSMENT & PLAN: 1. Fall/ fracture. 2. Recent left [...]
--- OUTSIDE RECORDS SUMMARY | 2018-10-11 16:25 | XMS REPORT | Summary of Care ---
Author Author [facility] General Surgery [facility] Organization [facility] General Surgery [facility] Address Unknown Phone Unavailable Encounter RICKI Candelario(FIN) [id number] Date(s): 03/24/17 - 03/24/17 [facility] General Surgery [facility] [address] [facility], [facility] [address] [place] [address]- [phone] Attending Physician: Wojciech Winston MD Vital Signs No data available for [...] Related Diagnosis Body Site Status Insertion of [id number]-p-[id number] 03/13/17 Completed Removal of Port-a-cath and groshong cath 02/21/17 Completed placement2 Appendectomy3 Completed Bilateral oophorectomy Completed section4 Completed Cholecystectomy Completed Gastrectomy Completed Gastrectomy5 Completed Gastric stapling Completed Hysterectomy Completed Insertion of Port-a-cath Completed Nephrectomy6 Completed Operation7 Completed Operation8 Completed Operation9 Completed [id number] Completed [id number] Completed ORIF - Open reduction and internal fixation Completed of [id number] Removal of Lxar-o-bydr14 Completed Tonsillectomy Completed Total knee [id number] Completed 1removal of groshong cath 2Removal of Port-a-cath and groshong cath placement [id number] 4x1 5complete 6right 7lasik procedure 8multiple colon surgery and exploratory laparotomy, 9right hip surgery S/P fracture 10multiple adhesion surgeries 03xday-k-klia placement 12right leg 1304/2015 sx site clean dry, no redness, intact, [...]
--- OUTSIDE RECORDS SUMMARY | 2018-10-11 16:26 | XMS REPORT | Summary of Care ---
Author Author [facility] Organization [facility] Address Unknown Phone Unavailable Encounter RICKI Candelario(GRADY) [id number] Date(s): 02/19/17 - 02/23/17 [facility] [address] [place] [address]- [phone] Discharge Disposition: Home or Self Care Attending Physician: Nabor Han MD Admitting Physician: Nabor Han MD Vital Signs 1 2 3 Most recent to oldest [Reference Range]: 162.56 cm (02/19/17 10:07 PM) Height 98.6 DegF (02/23/17 3:33 PM) 97.9 DegF (02/23/17 11:35 AM) 98.7 DegF (02/23/17 7:34 AM) Temperature Oral [96.4-99.1 DegF] 118/76 mmHg (02/23/17 3:33 PM) 123/74 mmHg (02/23/17 11:35 AM) 95/68 mmHg (02/23/17 7:34 AM) Blood Pressure [90-140/60-90 mmHg] 16 BRMIN (02/23/17 3:33 PM) 16 BRMIN (02/23/17 11:35 AM) 16 BRMIN (02/23/17 7:34 AM) Respiratory Rate [14-20 BRMIN] 72 bpm (02/23/17 3:33 PM) 76 bpm (02/23/17 11:35 AM) 78 bpm (02/23/17 7:34 AM) Peripheral Pulse Rate [60-100 bpm] 68.2 kg (02/19/17 10:07 PM) Weight 25.81 m2 (02/19/17 10:07 PM) Body Mass Index Problem List Condition [...] 06/08/14. Originally documented as IMITREX. hives Medications acetaminophen 650 mg, 2 tab, Route: PO, Drug form: TAB, Q6H, Dosing Weight 69.574, kg, PRN Jennifer n 1-3/Temp > 100.4 F, Start date: 02/19/17 14:52:00 [employer], Duration: 30 day, Stop date: 03/21/17 14:51:00 [employer] Notes: Do not exceed 4 gm/day. (Same as: Tylenol) Start Date: 02/19/17 Stop Date: 02/23/17 Status: Discontinued aspirin 81 mg, 1 tab, Route: PO, Drug form: ECTAB, Daily, Dosing Weight 68.2, kg, Start date: 02/21/17 9:00:00 [employer], Duration: 30 day, Stop date: 03/22/17 9:00:00 [employer] Notes: Do not crush or chew.(Same As: Ecotrin) Start Date: 02/21/17 Stop Date: 02/23/17 Status: Discontinued aspirin 81 mg, PO, Daily, 0 Refill(s) Start Date: 02/18/17 Status: Ordered Ativan 1 mg, 1 tab, Route: PO, Drug form: TAB, Bedtime, Dosing Weight 68.2, kg, PRN Anx iety, Start date: 02/20/17 22:04:00 [employer], Duration: 30 day, Stop date: 03/22/17 2 2:03:00 [employer] Notes: (Same as: Ativan) Start Date: 02/20/17 Stop Date: 02/23/17 Status: Discontinued Ativan 2 mg, 1 mL, Route: IV, Drug form: INJ, ONCE, Dosing Weight 68.2, kg, Start date: 02/20/17 1:15:00 [employer], Stop date: 02/20/17 1:15:00 [employer] Notes: (Same as: Ativan) Start Date: 02/20/17 Stop Date: 02/20/17 Status: Completed Cymbalta 150 mg, Route: PO, Drug form: DRC, Bedtime, Dosing Weight 68.2, kg, Start date: 02/20/17 21:00:00 [employer], Duration: 30 day, Stop date: 03/21/17 21:00:00 [employer] Start Date: 02/20/17 Stop Date: 02/20/17 Status: Deleted Cymbalta 90 mg, 3 cap, Route: PO, Drug form: DRC, Bedtime, Start date: 02/20/17 21:00:00 [employer], Duration: 30 day, Stop date: 03/21/17 21:00:00 [employer] Notes: (Same as: Cymbalta) (Do Not Crush) Start Date: 02/20/17 Stop Date: 02/23/17 Status: Discontinued Diovan 160 mg, 1 tab, Route: PO, Drug form: TAB, Bedtime, Dosing Weight 68.2, kg, Start date: 02/20/17 21:00:00 [employer], Duration: 30 day, Stop date: 03/21/17 21:00:00 [employer] Notes: Same as Diovan Start Date: 02/20/17 Stop Date: 02/23/17 Status: Discontinued docusate 100 mg, 1 cap, Route: PO, Drug form: CAP, BID, Dosing Weight 69.574, kg, PRN as needed for constipation, Start date: 02/19/17 14:52:00 [employer], Duration: 30 day, St op date: 03/21/17 14:51:00 [employer] Notes: (Same as: Colace) (Do Not Crush) Start Date: 02/19/17 Stop Date: 02/23/17 Status: Discontinued enoxaparin 40 mg, 0.4 mL, Route: SUB-Q, Drug form: INJ, [id number], Dosing Weight 68.2, kg, S tart date: 02/20/17 2:00:00 [employer], Duration: 30 day, Stop date: 03/21/17 2:00:[address] Notes: (Same as: Lovenox) Start Date: 02/20/17 Stop Date: 02/23/17 Status: Discontinued famotidine (ANES) Route: IV, Drug form: INJ, ONCE, Stop date: 02/21/17 11:17:00 [employer] Start Date: 02/21/17 Stop Date: 02/21/17 Status: Completed fentaNYL (ANES) Route: IV, Drug form: INJ, ONCE, Stop date: 02/21/17 11:17:00 [employer] Start Date: 02/21/17 Stop Date: 02/21/17 Status: Completed hydrALAZINE 10 mg, 0.5 mL, Route: IVP, Drug form: INJ, Q4H, Dosing Weight 69.574, kg, PRN Hy pertension, Start date: 02/19/17 14:54:00 [employer], Duration: 30 day, Stop date: 03/12 14:53:00 [employer] Notes: (Same as: Apresoline)Push over 5 minutes Start Date: 02/19/17 Stop Date: 02/23/17 Status: Discontinued Lactated Ringers Injection IV (ANES) 1000 mL Route: IV, Total Volume: 1,000, Start date: 02/21/17 10:19:00 [employer], Stop date: 11:19:00 [employer] Start Date: 02/21/17 Stop Date: 02/21/17 Status: Completed lidocaine (ANES) Route: IV, Drug form: INJ, ONCE, Stop date: 02/21/17 11:18:00 [employer] Start Date: 02/21/17 Stop Date: 02/21/17 Status: Completed Lipitor 10 mg, 1 tab, Route: PO, Drug form: TAB, Bedtime, Start date: 02/20/17 21:00:00 [employer], Duration: 30 day, Stop date: 03/21/17 21:00:00 [employer] Notes: (Same As: Lipitor) Start Date: 02/20/17 Stop Date: 02/23/17 Status: Discontinued lovastatin 20 mg, Route: PO, Drug form: TAB, Bedtime, Dosing Weight 68.2, kg, Start date: 0 02/20/17 21:00:00 [employer], Duration: 30 day, Stop date: 03/21/17 21:00:00 [employer] Start Date: 02/20/17 Stop Date: 02/20/17 Status: Deleted melatonin 3 mg, 1 tab, Route: PO, Drug form: TAB, Bedtime, Dosing Weight 69.574, kg, PRN S leep, Start date: 02/19/17 14:54:00 [employer], Duration: 30 day, Stop date: 03/21/17 1 4:53:00 [employer] Notes: (Same as: Melatonin) Start Date: 02/19/17 Stop Date: 02/23/17 Status: Discontinued midazolam (ANES) Route: IV, Drug form: SOLN, ONCE, Stop date: 02/21/17 11:17:00 [employer] Start Date: 02/21/17 Stop Date: 02/21/17 Status: Completed Glencoe 5/325 oral tablet 1 tab, Route: PO, Drug Form: TAB, Dosing Weight 68.2, kg, Q6H, PRN Pain Score 4- 6, Start date: 02/20/17 11:35:00 [employer], Duration: 30 day, Stop date: 03/22/17 11:3 4:00 [employer] Notes: (Same as: Glencoe 325/5) Do not exceed 4gm/day of acetaminophen. Start Date: 02/20/17 Stop Date: 02/23/17 Status: Discontinued Norvasc 10 mg, 2 tab, Route: PO, Drug form: TAB, Bedtime, Dosing Weight 68.2, kg, Start date: 02/20/17 21:00:00 [employer], Duration: 30 day, Stop date: 03/21/17 21:00:00 [employer] Notes: (Same as: Norvasc) Start Date: 02/20/17 Stop Date: 02/23/17 Status: Discontinued ondansetron 4 mg, 2 mL, Route: IVP, Drug form: INJ, Q6H, Dosing Weight 69.574, kg, PRN Nause a & Vomiting, Start date: 02/19/17 14:52:00 [employer], Duration: 30 day, Stop date: 03/21/17 14:51:00 [employer] Notes: (Same as: Wendi) MEDICATION WASTE Product Size: 4 mgProduct Was layla: ___ mg Start Date: 02/19/17 Stop Date: 02/23/17 Status: Discontinued ondansetron (ANES) Route: IV, Drug form: INJ, ONCE, Stop date: 02/21/17 11:38:00 [employer] Start Date: 02/21/17 Stop Date: 02/21/17 Status: Completed phenylephrine (ANES) Route: IV, Drug form: INJ, ONCE, Stop date: 02/21/17 11:27:00 [employer] Start Date: 02/21/17 Stop Date: 02/21/17 Status: Completed propofol (ANES) Route: IV, Drug form: INJ, ONCE, Stop date: 02/21/17 11:18:00 [employer] Start Date: 02/21/17 Stop Date: 02/21/17 Status: Completed Proventil HFA 90 mcg/inh inhalation aerosol with adapter 180 microgram, Route: INHALATION, Drug Form: AERO/A, Dosing Weight 68.2, kg, QID , PRN Wheezing, Start date: 02/20/17 11:27:00 [employer], Duration: 30 day, Stop date: 03/22/17 11:26:00 [employer] Notes: Albuterol 90 microgram/inh 8gm HFAWASTE: Aerosol - Return to [facility] as: Ventolin, Proventil Start Date: 02/20/17 Stop Date: 02/23/17 Status: Discontinued Remeron 90 mg, 6 tab, Route: PO, Drug form: TAB, Bedtime, Dosing Weight 68.2, kg, Start date: 02/20/17 1:35:00 [employer], Duration: 30 day, Stop date: 03/21/17 21:00:00 [employer] Notes: (Same as:Remeron) Start Date: 02/20/17 Stop Date: 02/23/17 Status: Discontinued Sodium Chloride 0.9% IV 1,000 mL 1,000 mL, Rate: 200 ml/hr, Infuse over: 5 hr, Route: IV, Dosing Weight 68.2 kg, Total Volume: 1,000, Start date: 02/20/17 6:24:00 [employer], Duration: 1 day, Stop radha e: 02/21/17 6:23:00 [employer], 1.77, m2 Start Date: 02/20/17 Stop Date: 02/21/17 Status: Completed Topamax 200 mg, 2 tab, Route: PO, Drug form: TAB, Bedtime, Dosing Weight 68.2, kg, Start date: 02/20/17 21:00:00 [employer], Duration: 30 day, Stop date: 03/21/17 21:00:00 [employer] Notes: (Same As: Topamax)"Do Not Crush" Start Date: 02/20/17 Stop Date: 02/23/17 Status: Discontinued Vanco level due 02/22/17-07:30am Vanco level due 02/22/17-07:30am, reminder, Drug form: MISC, Route: MISC, ONCE, 02/22/17 7:30:00 [employer], Stop date: 02/22/17 7:30:00 [employer] Start Date: 02/22/17 Stop Date: 02/22/17 Status: Completed vancomycin 1,000 mg, Route: IVPB, Drug form: INJ, ONCE, Dosing Weight 68.2, kg, Start date: 02/23/17 11:19:00 [employer], Stop date: 02/23/17 11:19:00 [employer], ABX Indication: Other (specify in Comments) Start Date: 02/23/17 Stop Date: 02/23/17 Status: Discontinued vancomycin + Sodium Chloride 0.9% IV 250 mL 1 gm, Route: IV, ONCE, Dosing Weight 68.2, kg, Start date: 02/23/17 14:03:00 [employer] , Stop date: 02/23/17 14:03:00 [employer], ABX Indication: Other (specify in Comments) Notes: TIME CRITICAL MEDICATION(Same As: Vancocin)Infusion rate< 1000 mg: infuse over 1 [id number] - 1500 mg: infuse over 1.5 [id number] - 2000 mg: infuse over 2 hours> 2001 mg: infuse over 2.5 hoursFor adult patients only: Round to nearest 250 mg per Medical Staff approval MEDICATION WASTE Product Size: 1000 mgProduct Wasted: ___ mg Start Date: 02/23/17 Stop Date: 02/23/17 Status: Completed vancomycin + Sodium Chloride 0.9% IV 250 mL 1 gm, Route: IVPB, Q12H, Dosing Weight 68.2, kg, Start date: 02/20/17 21:00:[address], Duration: 30 day, Stop date: 03/22/17 9:00:00 [employer], ABX Indication: Catheter- Related Infection Notes: TIME CRITICAL MEDICATION(Same As: Vancocin)Infusion rate< 1000 mg: infuse over 1 [id number] - 1500 mg: infuse over 1.5 [id number] - 2000 mg: infuse over 2 hours> 2001 mg: infuse over 2.5 hoursFor adult patients only: Round to nearest 250 mg per Medical Staff approval MEDICATION WASTE Product Size: 1000 mgProduct Wasted: ___ mg Start Date: 02/20/17 Stop Date: 02/20/17 Status: Canceled vancomycin + Sodium Chloride 0.9% IV 250 mL 750 mg, Route: IVPB, [id number], Start date: 02/21/17 9:00:00 [employer], Duration: 30 day , Stop date: 03/22/17 21:00:00 [employer], ABX Indication: Bacteremia Notes: TIME CRITICAL MEDICATION(Same As: Vancocin)Infusion rate< 1000 mg: infuse over 1 [id number] - 1500 mg: infuse over 1.5 [id number] - 2000 mg: infuse over 2 hours> 2001 mg: infuse over 2.5 hoursFor adult patients only: Round to nearest 250 mg per Medical Staff approval MEDICATION WASTE Product Size: 1000 mgProduct Wasted: ___ mg Start Date: 02/21/17 Stop Date: 02/23/17 Status: Discontinued vancomycin + Sodium Chloride 0.9% IV 500 mL 1,750 mg, Route: IVPB, ONCE, Start date: 02/20/17 19:43:00 [employer], Stop date: 02/20 19:43:00 [employer], ABX Indication: Bacteremia Notes: TIME CRITICAL MEDICATION(Same As: Vancocin)Infusion rate< 1000 mg: infuse over 1 [id number] - 1500 mg: infuse over 1.5 [id number] - 2000 mg: infuse over 2 hours> 2001 mg: infuse over 2.5 hoursFor adult patients only: Round to nearest 250 mg per Medical Staff approval MEDICATION WASTE Product Size: 1000 mgProduct Wasted: ___ mg Start Date: 02/20/17 Stop Date: 02/20/17 Status: Completed vancomycin 1 g intravenous injection 1 gm, IV, Q12H, # 14 vial, 0 Refill(s), given to patient Start Date: 02/23/17 Stop Date: 03/02/17 Status: Ordered Vancomycin Pharmacy Dosing 1 ea, Route: MISC, ONCALL, Dosing Weight 68.2, kg, Start date: 02/20/17 20:00:00 [employer], Duration: 10 day, Stop date: 03/02/17 19:59:00 [employer], Pharmacy to dose, ABX Indication: Bacteremia Start Date: 02/20/17 Stop Date: 02/20/17 Status: Deleted Results ELECTROLYTES Most recent to 1 2 oldest [Reference Range]: Sodium Lvl [135-145 140 mEq/L 138 mEq/L mEq/L] (02/21/17 7:16 AM) (02/19/17 10:37 PM) Potassium Lvl 3.5 mEq/L 3.9 mEq/L [3.5-5.1 mEq/L] (02/21/17 7:16 AM) (02/19/17 10:37 PM) Chloride Lvl [95-109 111 mEq/L 105 mEq/L mEq/L] *HI* (02/19/17 10:37 PM) (02/21/17 7:16 AM) CO2 [24-32 mEq/L] 21 mEq/L 26 mEq/L *LOW* (02/19/17 10:37 PM) (02/21/17 7:16 AM) AGAP [10.0-20.0 11.5 mEq/L 10.9 mEq/L mEq/L] (02/21/17 7:16 AM) (02/19/17 10:37 PM) CHEM PANEL Most recent to 1 2 oldest [Reference Range]: Creatinine Lvl 0.74 mg/dL 1.01 mg/dL [0.50-1.40 mg/dL] (02/21/17 7:16 AM) (02/19/17 10:37 PM) eGFR 90 mL/min/1.73m2 1 62 mL/min/1.73m2 2 *NA* *NA* (02/21/17 7:16 AM) (02/19/17 10:37 PM) BUN [7-22 mg/dL] 13 mg/dL 23 mg/dL (02/21/17 7:16 AM) *HI* (02/19/17 10:37 PM) B/C Ratio [6-25] 23 (02/19/17 10:37 PM) Glucose Lvl [70-99 93 mg/dL 88 mg/dL mg/dL] (02/21/17 7:16 AM) (02/19/17 10:37 PM) Total Protein 7.4 g/dL [6.4-8.4 g/dL] (02/19/17 10:37 PM) Albumin Lvl [3.5-5.0 3.2 g/dL g/dL] *LOW* (02/19/17 10:37 PM) Globulin [2.7-4.2 4.2 g/dL g/dL] (02/19/17 10:37 PM) A/G Ratio [0.7-1.6] 0.8 (02/19/17 10:37 PM) Calcium Lvl 8.0 mg/dL 8.3 mg/dL [8.5-10.5 mg/dL] *LOW* *LOW* (02/21/17 7:16 AM) (02/19/17 10:37 PM) Magnesium Lvl 2.3 mg/dL [1.8-2.4 mg/dL] (02/19/17 10:37 PM) ALT [0-65 unit/L] 26 unit/L (02/19/17 10:37 PM) AST [0-37 unit/L] 26 unit/L (02/19/17 10:37 PM) Alk Phos [39-136 178 unit/L unit/L] *HI* (02/19/17 10:37 PM) Bili Total [0.2-1.3 0.3 mg/dL mg/dL] (02/19/17 10:37 PM) 1Result Comment: The eGFR is calculated using [...] be mul tiplied by the estimated BMI. TOXICOLOGY Most recent to 1 2 oldest [Reference Range]: Vanco Tr TND 07:30 *NA* (02/22/17 7:02 AM) Vanco Tr 18.5 ug/ml *NA* (02/22/17 7:02 AM) HEMATOLOGY Most recent to 1 2 oldest [Reference Range]: WBC [3.7-10.4 K/CMM] 3.9 K/CMM 7.6 K/CMM (02/21/17 7:16 AM) (02/19/17 10:37 PM) RBC [4.20-5.40 4.33 M/CMM 4.78 M/CMM M/CMM] (02/21/17 7:16 AM) (02/19/17 10:37 PM) Hgb [12.0-16.0 g/dL] 11.5 g/dL 12.8 g/dL *LOW* (02/19/17 10:37 PM) (02/21/17 7:16 AM) Hct [36.0-48.0 %] 34.8 % 38.6 % *LOW* (02/19/17 10:37 PM) (02/21/17 7:16 AM) MCV [80.0-98.0 fL] 80.2 fL 80.8 fL (02/21/17 7:16 AM) (02/19/17 10:37 PM) MCH [27.0-31.0 pg] 26.5 pg 26.8 pg *LOW* *LOW* (02/21/17 7:16 AM) (02/19/17 10:37 PM) MCHC [32.0-36.0 33.0 g/dL 33.2 g/dL g/dL] (02/21/17 7:16 AM) (02/19/17 10:37 PM) RDW [11.5-14.5 %] 15.4 % 14.9 % *HI* *HI* (02/21/17 7:16 AM) (02/19/17 10:37 PM) Platelet [133-450 318 K/CMM 379 K/CMM K/CMM] (02/21/17 7:16 AM) (02/19/17 10:37 PM) MPV [7.4-10.4 fL] 6.6 fL 6.6 fL *LOW* *LOW* (02/21/17 7:16 AM) (02/19/17 10:37 PM) Segs [45.0-75.0 %] 87.6 % *HI* (02/19/17 10:37 PM) Lymphocytes 6.8 % [20.0-40.0 %] *LOW* (02/19/17 10:37 PM) Monocytes [2.0-12.0 4.1 % %] (02/19/17 10:37 PM) Eosinophils [0.0-4.0 0.9 % %] (02/19/17 10:37 PM) Basophils [0.0-1.0 0.6 % %] (02/19/17 10:37 PM) Segs-Bands # 6.6 K/CMM [1.5-8.1 K/CMM] (02/19/17 10:37 PM) Lymphocytes # 0.5 K/CMM [1.0-5.5 K/CMM] *LOW* (02/19/17 10:37 PM) Monocytes # [0.0-0.8 0.3 K/CMM K/CMM] (02/19/17 10:37 PM) Eosinophils # 0.1 K/CMM [0.0-0.5 K/CMM] (02/19/17 10:37 PM) Immunizations Given and Recorded Vaccine Date Status Refusal Reason influenza virus vaccine, inactivated 04/22/13 Given pneumococcal 23-valent vaccine 04/22/13 Given Procedures Procedure Date Related Diagnosis Body Site Status Insertion of tunneled centrally inserted 02/21/17 Completed central venous access device, with subcutaneous port; age 5 years or older Removal of tunneled central venous access 02/21/17 Completed device, with subcutaneous port or pump, central or peripheral insertion Appendectomy1 Completed Bilateral oophorectomy Completed section2 Completed Cholecystectomy Completed Gastrectomy Completed Gastrectomy3 Completed Gastric stapling Completed Hysterectomy Completed Insertion of Port-a-cath Completed Nephrectomy4 Completed Operation5 Completed Operation6 Completed Operation7 Completed Operation8 Completed Operation9 Completed ORIF - Open reduction and internal fixation Completed of [id number] Removal of [id number] Completed Tonsillectomy Completed Total knee [id number] Completed [id number] 2x1 3complete 4right 5lasik procedure 6multiple colon surgery and exploratory laparotomy, 7right hip surgery S/P fracture 8multiple adhesion surgeries [id number] placement 10right leg sx site clean dry, no redness, intact, healing, mild bruising noted RAUL HE Social History Social History Type Response Substance Abuse Use: None. Sexual Sexually active: No. Exercise 1 Employment/School 2 Alcohol Previous treatment: None. 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 2none Assessment and Plan Extracted from: Title: Discharge Summary * Author: Nabor Han MD Date: 02/23/17 Patient: FELICITA CERON Age: 56 years Sex: Female : 1960 Associated Diagnoses: None Author: Nabor Han MD Results Review General results Labs (Last four charted values) WBC 3.9(FEB 21)7.6(FEB 19) Hgb L 11.5(FEB 21)12.8(FEB 19) Hct L 34.8(FEB 21)38.6(FEB 19) Plt 318(FEB 21)379(FEB 19) Na 140(FEB 21)138(FEB 19) K 3.5(FEB 21)3.9(FEB 19) CO2 L 21(FEB 21)26(FEB 19) Cl H 111(FEB 21)105(FEB 19) Cr 0.74(FEB 21)1.01(FEB 19) BUN 13(FEB 21)H 23(FEB 19) Glucose Random 93(FEB 21)88(FEB 19) Mg 2.3(FEB 19) Ca L 8.0(FEB 21)L 8.3(FEB 19) Final discharge diagnoses: 1. Coag negative staph bacteremia/sepsis status post port removal with tunneled catheter placement 2. Hypertension 3. History of depression/anxiety Consultants: General surgery, infectious disease Discharge Information Disposition to home Condition stable Medications: See med reconciliation form Diet: Heart healthy Physical Examination VS/Measurements Vital Signs (last 24 hrs) Last Charted Temp Oral98.6 DegF (FEB 23:) Heart Rate [id number] bpm (FEB 23) Resp Rate 16 BRMIN (FEB 23) KUD323 mmHg (FEB 23) DBP76 mmHg (FEB 23) UlT056 % (FEB 23) General: NAD, alert and oriented x3 HEENT: [...] no edema, cyanosis or clubbing : no rodriguez Hospital Course 56-year-old female who was a [...] summary to greater than 35 minutes Addendum Blood cultures were negative, culture tip of the Port-A-Cath was negative as well by Nabor Han MD on 02/23/2017 18:22 Extracted from: Title: Clinical Document Author: Mariya Coombs MD Date: 02/23/17 Ifectious Disease Progress Note [facility] Dr. Mariya Coombs SUBJECTIVE Events reviewed. Patient seen and examined labs and medications reviewed . OBJECTIVE Doing well no new complaint Vitals and Temp: VitalsTmp(F)[id number] 02/23 07:3498.24632/[id number]--- 02/23 04:2998.268398/7116------ 02/23 00:1698.017490/7316------ 02/22 20:2698.427340/7918------ 02/22 15:3298.118481/167641--- 24 Hr Tmax: 98.8F (37.11c) at 02/22 15:32Vital Signs are the last 5 in the past 48 hours. Input/Output RecordInOutBal 1524hr Tot 490 0 490 1424hr Tot 1640 0 1640 Physical Exam Gen: alert, no acute distress, follow command HEENT: not pale, not icteric, normal cephalic, Neck: Supple, no jvd, CV: S1, S2, no murmurs Lung: clear bilateral course BS Abd: soft, bowel sound normal, no tenderness Ext: no edema Skin: no rash Neuro: no seizure, no local finding Labs (Last four charted values) WBC 3.9(FEB 21)7.6(FEB 19) Hgb L 11.5(FEB 21)12.8(FEB 19) Hct L 34.8(FEB 21)38.6(FEB 19) Plt 318(FEB 21)379(FEB 19) Na 140(FEB 21)138(FEB 19) K 3.5(FEB 21)3.9(FEB 19) CO2 L 21(FEB 21)26(FEB 19) Cl H 111(FEB 21)105(FEB 19) Cr 0.74(FEB 21)1.01(FEB 19) BUN 13(FEB 21)H 23(FEB 19) Glucose Random 93(FEB 21)88(FEB 19) Mg 2.3(FEB 19) Ca L 8.0(FEB 21)L 8.3(FEB 19) Medications Scheduled Meds (9):DULoxetine (Cymbalta), amLODIPine (Norvasc), aspirin, atorvastatin (Lipitor), enoxaparin, mirtazapine (Remeron), topiramate (Topamax), valsartan (Diovan), vancomycin + Sodium Chloride 0.9% IV 250 mL Unscheduled Meds: None PRN Meds (8):LORazepam (Ativan), acetaminophen-hydrocodone ([place] 5/325 oral tablet), acetaminophen, albuterol (Proventil HFA [...] today Follow-up as an outpatient PLAN Extracted from: Title: Clinical Document Author: Mariya Coombs MD Date: 02/20/17 Ifectious Disease consult Note [facility] Dr. Mariya Coombs SUBJECTIVE: Patient seen and examined charts reviewed [...] presents today at the behest of Dr. Coombs, her long time infectious disease doctor who [...] event and she contacted her doctor, Dr. Coombs, who arranged for a direct admission, under Dr. Han, to [facility] for further care and evaluation of her [...] stable creatinine of 1.01. The patient has ex perienced no nausea, vomiting, chest pain, dysuria, abdominal [...] Abuse Details: Use: None. Vitals and Temp: VitalsTmp(F)[id number] 02/20 11:[id number]--- 02/20 07:2599.215309/[id number]--- 02/20 05:68918 02/20 04:[id number]/8418------ 02/20 00:2299.964692/8116------ 24 Hr Tmax: 100.6F (38.11c) at 02/20 04:21Vital Signs are the last 5 in the past 48 hours. Input/Output RecordInOutBal 4hr Tot 560 0 560 4hr Tot 301 400 -99 Physical Exam Labs (Last four charted values) WBC 7.6(FEB 19) Hgb 12.8(FEB 19) Hct 38.6(FEB 19) Plt 379(FEB 19) Na 138(FEB 19) K 3.9(FEB 19) CO2 26(FEB 19) Cl 105(FEB 19) Cr 1.01(FEB 19) BUN H 23(FEB 19) Glucose Random 88(FEB 19) Mg 2.3(FEB 19) Ca L 8.3(FEB 19) Medications Scheduled Meds (8):DULoxetine (Cymbalta), amLODIPine (Norvasc), aspirin, atorvastatin (Lipitor), enoxaparin, mirtazapine (Remeron), topiramate (Topamax), valsartan (Diovan) Unscheduled Meds: None PRN Meds (7):acetaminophen-hydrocodone ([place] 5/325 oral tablet), acetaminophen, albuterol (Proventil HFA [...] discussed with all doctors and patient Extracted from: Title: Clinical Document Author: Florentin Haq MD Date: 02/20/17 full H&P dictated, #[id number] date/time: 02/20/2017 00:33
--- OUTSIDE RECORDS SUMMARY | 2018-10-11 16:26 | XMS REPORT | Summary of Care ---
Author Author [facility] Organization [facility] Address Unknown Phone Unavailable Encounter RICKI Candelario(FIN) [id number] Date(s): 03/13/17 - 03/13/17 [facility] [address] [place] [address]- Encounter Diagnosis Vitamin deficiency, unspecified (Final) - 03/17/17 Antiphospholipid syndrome (Final) - Gastro-esophageal reflux disease without esophagitis (Final) - Essential (primary) hypertension (Final) - Discharge Disposition: Home or Self Care Attending Physician: Wojciech Nickerson MD Referring Physician: Wojciech Nickerson MD Vital Signs 1 2 3 Most recent to oldest [Reference Range]: 162.56 cm (03/11/17 2:58 PM) Height 98.0 DegF (03/11/17 2:58 PM) Temperature Oral [96.4-99.1 DegF] 110/67 mmHg (03/13/17 10:45 AM) 109/72 mmHg (03/13/17 10:30 AM) 130/73 mmHg (03/13/17 10:00 AM) Blood Pressure [90-140/60-90 mmHg] 12 BRMIN *LOW* (03/13/17 9:45 AM) 16 BRMIN (03/13/17 9:32 AM) 16 BRMIN (03/13/17 9:17 AM) Respiratory Rate [14-20 BRMIN] 69 bpm (03/11/17 2:58 PM) Peripheral Pulse Rate [60-100 bpm] 66.903 kg (03/11/17 2:58 PM) Weight 25.32 m2 (03/11/17 2:58 PM) Body Mass Index Problem List Condition [...] 06/08/14. Originally documented as IMITREX. hives Medications ANES acetaminophen 1,000 mg, Route: PO, Drug form: TAB, ONCE, Dosing Weight 66.903, kg, PRN Pain Sc ore 1-3, Start date: 03/13/17 9:03:00 [employer]ACH[employer] OPERATOR HELPER Start Date: 03/13/17 Stop Date: 03/14/17 Status: Discontinued ANES albuterol 0.083% inhalation solution 2.49 mg, Route: NEB, Q20Min, Dosing Weight 66.903, kg, PRN Wheezing, Priority: R outine, Start date: 03/13/17 9:03:00 [employer]IV[employer] MACHINE OPERATOR HELPER, Duration: 30 day, Stop date: 04/12/17 9:02:00 [employer]IV[employer] MACHINE OPERATOR HELPER Start Date: 03/13/17 Stop Date: 03/14/17 Status: Discontinued ANES diphenhydrAMINE 12.5 mg, Route: IVP, Drug form: INJ, Q6H, Dosing Weight 66.903, kg, PRN Itching, Start date: 03/13/17 9:03:00 [employer]IVING MACHINE OPERATOR HELPER, Duration: 30 day, Stop date: 04/12/17 9:02:00 [employer]IV[employer] MACHINE OPERATOR HELPER Start Date: 03/13/17 Stop Date: 03/14/17 Status: Discontinued ANES fentaNYL 25 microgram, Route: IVP, Q5Min, Dosing Weight 66.903, kg, PRN Pain Score 4-6, P riority: Routine, Start date: 03/13/17 9:03:00 [employer]IVING MACHINE OPERATOR HELPER, Duration: 4 doses or times, Stop date: Limited # of times Start Date: 03/13/17 Stop Date: 03/14/17 Status: Discontinued ANES fentaNYL 50 microgram, Route: IVP, Q5Min, Dosing Weight 66.903, kg, PRN Pain Score 7-10, Priority: Routine, Start date: 03/13/17 9:03:00 [employer]IV[employer] MACHINE OPERATOR HELPER, Duration: 2 doses or times, Stop date: Limited # of times Start Date: 03/13/17 Stop Date: 03/14/17 Status: Discontinued ANES flumazenil 0.2 mg, Route: IVP, PRN, Dosing Weight 66.903, kg, PRN Benzodiazepine Reversal, Initial dose, Start date: 03/13/17 9:03:00 [employer]IV[employer] MACHINE OPERATOR HELPER, Duration: 30 day, Stop date: 05/27 9:02:00 [employer] MACHINE OPERATOR HELPER Start Date: 03/13/17 Stop Date: 03/14/17 Status: Discontinued ANES hydrALAZINE 10 mg, Route: IVP, Q20Min, Dosing Weight 66.903, kg, PRN Elevated BP, Start date : 03/13/17 9:03:00 [employer]IV[employer] MACHINE OPERATOR HELPER, Duration: 2 doses or times, Stop date: Limited # of time s Start Date: 03/13/17 Stop Date: 03/14/17 Status: Discontinued ANES HYDROmorphone 0.5 mg, Route: IVP, Q5Min, Dosing Weight 66.903, kg, PRN Pain Score 7-10, Start date: 03/13/17 9:03:00 [employer]IVING MACHINE OPERATOR HELPER, Duration: 4 doses or times, Stop date: Limited # of times Start Date: 03/13/17 Stop Date: 03/14/17 Status: Discontinued ANES ketOROLAC 30 mg, Route: IVP, ONCE, Dosing Weight 66.903, kg, Start date: 03/13/17 9:03:00 [employer]IVING MACHINE OPERATOR HELPER, Stop date: 03/13/17 9:03:00 [employer]IV[employer] MACHINE OPERATOR HELPER Start Date: 03/13/17 Stop Date: 03/23/17 Status: Discontinued ANES labetalol 10 mg, Route: IVP, Q5Min, Dosing Weight 66.903, kg, PRN Elevated BP, Start date: 03/13/17 9:03:00 [employer]IV[employer] MACHINE OPERATOR HELPER, Duration: 5 doses or times, Stop date: Limited # of times Start Date: 03/13/17 Stop Date: 03/14/17 Status: Discontinued ANES meperidine 12.5 mg, Route: IVP, Q30Min, Dosing Weight 66.903, kg, PRN Other -See Comment, F or shivering, Start date: 03/13/17 9:03:00 [employer]IV[employer] MACHINE OPERATOR HELPER, Duration: 2 doses or times, Stop date: Limited # of times Start Date: 03/13/17 Stop Date: 03/14/17 Status: Discontinued ANES naloxone 0.4 mg, Route: IVP, Q2MIN, Dosing Weight 66.903, kg, PRN Narcotic Reversal, Star t date: 03/13/17 9:03:00 [employer]IVING MACHINE OPERATOR HELPER, Duration: 8 doses or times, Stop date: Limited # o f times Start Date: 03/13/17 Stop Date: 03/14/17 Status: Discontinued ANES naloxone 0.1 mg, Route: SUB-Q, Q6H, Dosing Weight 66.903, kg, PRN Itching, Start date: 9:03:00 [employer]IVING MACHINE OPERATOR HELPER, Duration: 30 day, Stop date: 04/12/17 9:02:00 [employer]IVING MACHINE OPERATOR HELPER Start Date: 03/13/17 Stop Date: 03/14/17 Status: Discontinued ANES ondansetron 4 mg, Route: IVP, ONCE, Dosing Weight 66.903, kg, PRN Nausea & Vomiting, Start date: 03/13/17 9:03:00 [employer]IVING MACHINE OPERATOR HELPER Start Date: 03/13/17 Stop Date: 03/14/17 Status: Discontinued ANES oxyCODONE 10 mg, Route: PO, Drug form: TAB, Q4H, Dosing Weight 66.903, kg, PRN Pain Score 7-10, Start date: 03/13/17 9:03:00 [employer]IVING MACHINE OPERATOR HELPER, Duration: 30 day, Stop date: 04/12/17 9: 02:00 [employer]IVING MACHINE OPERATOR HELPER Start Date: 03/13/17 Stop Date: 03/14/17 Status: Discontinued ANES oxyCODONE 5 mg, Route: PO, Drug form: TAB, Q4H, Dosing Weight 66.903, kg, PRN Pain Score 4 -6, Start date: 03/13/17 9:03:00 HO[employer]IVING MACHINE OPERATOR HELPER, Duration: 30 day, Stop date: 04/12/17 9:02 :00 HOOP DRIVING MACHINE OPERATOR HELPER Start Date: 03/13/17 Stop Date: 03/14/17 Status: Discontinued ANES promethazine 6.25 mg, Route: IVPB, ONCE, Dosing Weight 66.903, kg, PRN Nausea & Vomiting, Start date: 03/13/17 9:03:00 HO[employer]IVING MACHINE OPERATOR HELPER Start Date: 03/13/17 Stop Date: 03/14/17 Status: Discontinued Carafate 1 g/10 mL oral suspension 1 gm=10 mL, PO, QID-Before Meals, 0 Refill(s) Start Date: 03/11/17 Status: Ordered clindamycin (ANES) 300 mg Route: IV, Drug form: INJ, Start date: 03/13/17 8:11:00 [employer]IVING MACHINE OPERATOR HELPER, Stop date: 03/13/17 9:11:00 [employer]IVING MACHINE OPERATOR HELPER Start Date: 03/13/17 Stop Date: 03/13/17 Status: Completed fentaNYL (ANES) Route: IV, Drug form: INJ, ONCE, Stop date: 03/13/17 8:52:00 [employer]IVING MACHINE OPERATOR HELPER Start Date: 03/13/17 Stop Date: 03/13/17 Status: Completed glycopyrrolate (ANES) Route: IV, Drug form: INJ, ONCE, Stop date: 03/13/17 9:01:00 HO[employer] DRIVING MACHINE OPERATOR HELPER Start Date: 03/13/17 Stop Date: 03/13/17 Status: Completed Lactated Ringers Injection IV (ANES) 1000 mL Route: IV, Total Volume: 1,000, Start date: 03/13/17 7:46:00 [employer]IVING MACHINE OPERATOR HELPER, Stop date: 03/29 8:46:00 [employer]IVING MACHINE OPERATOR HELPER Start Date: 03/13/17 Stop Date: 03/13/17 Status: Completed Lasix 40 mg oral tablet 40 mg=1 tab, PO, Daily, Pt is currently not taking medication, # 30 tab, 0 Refil l(s) Start Date: 03/11/17 Status: Ordered lidocaine (ANES) Route: IV, Drug form: INJ, ONCE, Stop date: 03/13/17 8:47:00 [employer]IVING MACHINE OPERATOR HELPER Start Date: 03/13/17 Stop Date: 03/13/17 Status: Completed midazolam (ANES) Route: IV, Drug form: SOLN, ONCE, Stop date: 03/13/17 8:42:00 HO[employer] DRIVING MACHINE OPERATOR HELPER Start Date: 03/13/17 Stop Date: 03/13/17 Status: Completed neostigmine (ANES) Route: IV, Drug form: INJ, ONCE, Stop date: 03/13/17 9:01:00 HOOP DRIVING MACHINE OPERATOR HELPER Start Date: 03/13/17 Stop Date: 03/13/17 Status: Completed [place] 10/325 oral tablet 1 tab, PO, Q6H, PRN for pain, # 24 tab, 0 Refill(s) Start Date: 03/11/17 Stop Date: 03/17/17 Status: Ordered ondansetron (ANES) Route: IV, Drug form: INJ, ONCE, Stop date: 03/13/17 8:52:00 HOOP DRIVING MACHINE OPERATOR HELPER Start Date: 03/13/17 Stop Date: 03/13/17 Status: Completed oxyCODONE 5 mg oral tablet 10 mg, Route: PO, Drug form: TAB, ONCE, Dosing Weight 66.903, kg, PRN Pain Score 7-10, Start date: 03/13/17 9:54:00 HOOP DRIVING MACHINE OPERATOR HELPER Start Date: 03/13/17 Stop Date: 03/13/17 Status: Completed phenylephrine (ANES) Route: IV, Drug form: INJ, ONCE, Stop date: 03/13/17 9:01:00 HOOP DRIVING MACHINE OPERATOR HELPER Start Date: 03/13/17 Stop Date: 03/13/17 Status: Completed Plaquenil 150 mg, PO, BID, 0 Refill(s) Start Date: 03/11/17 Status: Ordered propofol (ANES) Route: IV, Drug form: INJ, ONCE, Stop date: 03/13/17 8:52:00 HOOP DRIVING MACHINE OPERATOR HELPER Start Date: 03/13/17 Stop Date: 03/13/17 Status: Completed rocuronium (ANES) Route: IV, Drug form: INJ, ONCE, Stop date: 03/13/17 8:52:00 HOOP DRIVING MACHINE OPERATOR HELPER Start Date: 03/13/17 Stop Date: 03/13/17 Status: Completed Results ELECTROLYTES Most recent to 1 oldest [Reference Range]: Sodium Lvl [135-145 141 mEq/L mEq/L] (03/11/17 3:40 PM) Potassium Lvl 3.7 mEq/L [3.5-5.1 mEq/L] (03/11/17 3:40 PM) Chloride Lvl [95-109 109 mEq/L mEq/L] (03/11/17 3:40 PM) CO2 [24-32 mEq/L] 27 mEq/L (03/11/17 3:40 PM) AGAP [10.0-20.0 8.7 mEq/L mEq/L] *LOW* (03/11/17 3:40 PM) CHEM PANEL Most recent to 1 oldest [Reference Range]: Creatinine Lvl 0.94 mg/dL [0.50-1.40 mg/dL] (03/11/17 3:40 PM) eGFR 67 mL/min/1.73m2 1 *NA* (03/11/17 3:40 PM) BUN [7-22 mg/dL] 26 mg/dL *HI* (03/11/17 3:40 PM) Glucose Lvl [70-99 85 mg/dL mg/dL] (03/11/17 3:40 PM) Calcium Lvl 8.5 mg/dL [8.5-10.5 mg/dL] (03/11/17 3:40 PM) 1Result Comment: The eGFR is calculated [...] mul tiplied by the estimated BMI. HEMATOLOGY Most recent to 1 oldest [Reference Range]: Hgb [12.0-16.0 g/dL] 13.7 g/dL (03/11/17 3:40 PM) Hct [36.0-48.0 %] 41.9 % (03/11/17 3:40 PM) Immunizations Given and Recorded Vaccine Date Status Refusal Reason influenza virus vaccine, inactivated 04/22/13 Given pneumococcal 23-valent vaccine 04/22/13 Given Procedures Procedure Date Related Diagnosis Body Site Status Insertion of Pyns-q-ugpr7 03/13/17 Completed Insertion of tunneled centrally inserted 03/13/17 Completed central venous access device, with subcutaneous port; age 5 years or older Removal of tunneled central venous access 03/13/17 Completed device, with subcutaneous port or pump, central or peripheral insertion Removal of Port-a-cath and groshong cath 02/21/17 Completed placement2 Appendectomy3 Completed Bilateral oophorectomy Completed section4 Completed Cholecystectomy Completed Gastrectomy Completed Gastrectomy5 Completed Gastric stapling Completed Hysterectomy Completed Insertion of Port-a-cath Completed Nephrectomy6 Completed Operation7 Completed Operation8 Completed Operation9 Completed Ygkebdhru88 Completed Slyvtmkjl82 Completed ORIF - Open reduction and internal fixation Completed of pjbligmz37 Removal of Auaf-z-pxnl71 Completed Tonsillectomy Completed Total knee ufmaomxfmkc42 Completed 1removal of groshong cath 2Removal of Port-a-cath and groshong cath placement [id number] 4x1 5complete 6right 7lasik procedure 8multiple colon surgery and exploratory laparotomy, 9right hip surgery S/P fracture 10multiple adhesion surgeries 81bzox-x-mtpo placement 12right leg 1304/2015 sx site clean [...] Plan Extracted from: Title: Clinical Document Author: Wojciech Nickerson MD Date: 03/13/17 OP PATIENT NAME: SNEHA CARLISLE DATE OF OPERATION/PROCEDURE: 03/13/2017 *_*_* SURGEON: Wojciech Nickerson MD. PREOPERATIVE DIAGNOSIS: Vitamin deficiency. POSTOPERATIVE DIAGNOSES: [...] slightly secured to the level of the pectora lis fascia with interrupted 2-0 Prolene sutures. Subcutaneous [...] 10 mL COMPLICATIONS: None. _*_*_ Dictated by: WOJCIECH NICKERSON MD Extracted from: Title: Clinical Document Author: Wojciech Nickerson MD Date: 03/13/17 Chief Complaint s/p port [...] She is under the care of Dr. Coombs with the infectious disease service. She states [...] neg bruising, neg edema Physical Exam Vitals & Measurements HT: 162.56 cm HT Collection: Stated [...]
--- OUTSIDE RECORDS SUMMARY | 2018-10-11 16:26 | XMS REPORT | Summary of Care ---
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 per pt report [...] Related Diagnosis Body Site Status Insertion of Gyer-p-tajo0 03/13/17 Completed Removal of Port-a-cath and groshong cath 02/21/17 Completed placement2 Appendectomy3 Completed Bilateral oophorectomy Completed section4 Completed Cholecystectomy Completed Gastrectomy Completed Gastrectomy5 Completed Gastric stapling Completed Hysterectomy Completed Insertion of Port-a-cath Completed Nephrectomy6 Completed Operation7 Completed Operation8 Completed Operation9 Completed Lzwvyvfmg43 Completed Evojbeicz23 Completed ORIF - Open reduction and internal fixation Completed of dawahnvd63 Removal of Vlis-x-btxs75 Completed Tonsillectomy Completed Total knee xmpyuodvzdc32 Completed 1removal of groshong cath 2Removal of Port-a-cath and groshong cath placement 26870 4x1 5complete 6right 7lasik procedure 8multiple colon surgery and exploratory laparotomy, 9right hip surgery S/P fracture 10multiple adhesion surgeries 83lsqs-t-qomo placement 12right leg 1304/2015 sx site clean dry, no redness, intact, healing, mild bruising noted RAUL RN 1401/2014 Social History Social History Type Response Substance [...]
--- OUTSIDE RECORDS SUMMARY | 2018-10-11 16:26 | XMS REPORT | Summary of Care ---
Author Author [facility] Organization [facility] Address Unknown Phone Unavailable Encounter RICKI Candelario(GRADY) [id number] Date(s): 08/19/18 - 08/19/18 [facility] [address] [place] [address]- Discharge Disposition: Home or Self Care Attending Physician: Corey Ceron NP Admitting Physician: Corey Ceron NP Referring Physician: Corey Ceron NP Vital Signs No data available for this [...] Scleroderma(Confirme Active d) [facility]. 2bilat 3chronic per pt report [...] Related Diagnosis Body Site Status Insertion of Azrb-g-burr5 03/13/17 Completed Removal of Port-a-cath and groshong cath 02/21/17 Completed placement2 Appendectomy3 Completed Bilateral oophorectomy Completed section4 Completed Cholecystectomy Completed Gastrectomy Completed Gastrectomy5 Completed Gastric stapling Completed Hysterectomy Completed Insertion of Port-a-cath Completed Nephrectomy6 Completed Operation7 Completed Operation8 Completed Operation9 Completed Tkljxuryi01 Completed Dxotjxptw71 Completed ORIF - Open reduction and internal fixation Completed of muwcbpab68 Removal of Elfv-r-yiuk37 Completed Tonsillectomy Completed Total knee ttgrvzvaqcf89 Completed 1removal of groshong cath 2Removal of Port-a-cath and groshong cath placement 06611 4x1 5complete 6right 7lasik procedure 8multiple colon surgery and exploratory laparotomy, 9right hip surgery S/P fracture 10multiple adhesion surgeries 88rasq-u-olhs placement 12right leg 1304/2015 sx site clean [...]
--- OUTSIDE RECORDS SUMMARY | 2018-10-11 16:26 | XMS REPORT | Summary of Care ---
Author Author [facility] Organization [facility] Address Unknown Phone Unavailable Encounter RICKI Candelario(GRADY) [id number] Date(s): 04/15/17 - 04/15/17 [facility] [address] [place] [address]- Attending Physician: Sujey Penn MD Referring Physician: Sujey Penn MD Vital Signs No data available for [...] Related Diagnosis Body Site Status Insertion of Frgx-d-rxsd5 03/13/17 Completed Removal of Port-a-cath and groshong cath 02/21/17 Completed placement2 Appendectomy3 Completed Bilateral oophorectomy Completed section4 Completed Cholecystectomy Completed Gastrectomy Completed Gastrectomy5 Completed Gastric stapling Completed Hysterectomy Completed Insertion of Port-a-cath Completed Nephrectomy6 Completed Operation7 Completed Operation8 Completed Operation9 Completed Wnyckmqzz73 Completed Apivtnlks18 Completed ORIF - Open reduction and internal fixation Completed of fzkogiky93 Removal of Mndr-l-qzem33 Completed Tonsillectomy Completed Total knee ujrvpacnmdm52 Completed 1removal of groshong cath 2Removal of Port-a-cath and groshong cath placement 51616 4x1 5complete 6right 7lasik procedure 8multiple colon surgery and exploratory laparotomy, 9right hip surgery S/P fracture 10multiple adhesion surgeries 62ueid-v-nkpk placement 12right leg 1304/2015 sx site clean dry, no redness, intact, healing, mild bruising noted RAUL RN 1401/2015 Social History Social History Type Response Substance [...]
--- OUTSIDE RECORDS SUMMARY | 2018-10-11 16:26 | XMS REPORT | Summary of Care ---
Author Author [facility] General Surgery [facility] Organization [facility] General Surgery [facility] Address Unknown Phone Unavailable Encounter RICKI Candelario(GRADY) [id number] Date(s): 03/09/17 - 03/09/17 [facility] General Surgery [facility] [address] [facility] [place] [address]- [phone] Discharge Disposition: Home or Self Care Attending Physician: Wojciech Winston MD Vital Signs Most recent to 1 oldest [Reference Range]: Height 162.56 cm (03/09/17 1:13 PM) Temperature Oral 98.2 DegF [96.4-99.1 DegF] (03/09/17 1:13 PM) Blood Pressure 117/79 mmHg [90-140/60-90 mmHg] (03/09/17 1:13 PM) Peripheral Pulse 80 bpm Rate [60-100 bpm] (03/09/17 1:13 PM) Weight 66.818 kg (03/09/17 1:13 PM) Body Mass Index 25.29 m2 (03/09/17 1:13 PM) Problem List Condition Effective Dates Status [...] Originally documented as IMITREX. hives Medications No Known Medications Results No data available for this section Immunizations Given and Recorded Vaccine Date Status Refusal Reason influenza virus vaccine, inactivated 04/22/13 Given pneumococcal 23-valent vaccine 04/22/13 Given Procedures Procedure Date Related Diagnosis Body Site Status Insertion of Cyej-e-stmz0 03/13/17 Completed Removal of Port-a-cath and groshong cath 02/21/17 Completed placement2 Appendectomy3 Completed Bilateral oophorectomy Completed section4 Completed Cholecystectomy Completed Gastrectomy Completed Gastrectomy5 Completed Gastric stapling Completed Hysterectomy Completed Insertion of Port-a-cath Completed Nephrectomy6 Completed Operation7 Completed Operation8 Completed Operation9 Completed Dlhzdkydv06 Completed Cwmykseus16 Completed ORIF - Open reduction and internal fixation Completed of epmrpjye77 Removal of Shgb-e-guzt63 Completed Tonsillectomy Completed Total knee yxxyccswhym31 Completed 1removal of groshong cath 2Removal of Port-a-cath and groshong cath placement 47571 4x1 5complete 6right 7lasik procedure 8multiple colon surgery and exploratory laparotomy, 9right hip surgery S/P fracture 10multiple adhesion surgeries 29dmqy-s-imsh placement 12right leg 1304/2015 sx site clean [...]
--- OUTSIDE RECORDS SUMMARY | 2018-10-11 16:26 | XMS REPORT | Summary of Care ---
Author Author [facility] General Surgery [facility] Organization [facility] General Surgery [facility] Address Unknown Phone Unavailable Encounter RICKI Candelario(FIN) [id number] Date(s): 03/13/17 - 03/13/17 [facility] General Surgery [facility] [address] [facility] [place] [address]- [phone] Discharge Disposition: Home or Self Care Attending [...] Related Diagnosis Body Site Status Insertion of Pvdm-d-wsnf5 03/13/17 Completed Removal of Port-a-cath and groshong cath 02/21/17 Completed placement2 Appendectomy3 Completed Bilateral oophorectomy Completed section4 Completed Cholecystectomy Completed Gastrectomy Completed Gastrectomy5 Completed Gastric stapling Completed Hysterectomy Completed Insertion of Port-a-cath Completed Nephrectomy6 Completed Operation7 Completed Operation8 Completed Operation9 Completed Lvkagurxo50 Completed Owjdiycwf01 Completed ORIF - Open reduction and internal fixation Completed of Removal of Xgft-t-club98 Completed Tonsillectomy Completed Total knee hbpbxfildbr47 Completed 1removal of groshong cath 2Removal of Port-a-cath and groshong cath placement 54482 4x1 5complete 6right 7lasik procedure 8multiple colon surgery and exploratory laparotomy, 9right hip surgery S/P fracture 10multiple adhesion surgeries 00qoqc-q-ovaw placement 12right leg 1304/2015 sx site clean [...]
--- OUTSIDE RECORDS SUMMARY | 2018-10-11 16:26 | XMS REPORT | Summary of Care ---
Author Author [facility] Organization [facility] Address Unknown Phone Unavailable Encounter RICKI Candelario(GRADY) [id number] Date(s): 02/19/17 - 02/23/17 [facility] [address] [place] [address]- Encounter Diagnosis Bloodstream infection due to central venous catheter, initial encounter (Final) - 04/01/17 Other Gram-negative sepsis (Final) - Systemic sclerosis, unspecified (Final) - Moderate protein-calorie malnutrition (Final) - Postsurgical malabsorption, not elsewhere classified (Final) - Dysphagia, unspecified (Final) - Surgical operation with implant of artificial internal device as the cause of ab normal reaction of the patient, or of later complication, without mention of mis adventure at the time of the procedure (Final) - Essential (primary) hypertension (Final) - Major depressive disorder, single episode, unspecified (Final) - Anxiety disorder, unspecified (Final) - Acquired absence of stomach [part of] (Final) - Fibromyalgia (Final) - Age-related osteoporosis without current pathological fracture (Final) - Acquired absence of kidney (Final) - Anemia in other chronic diseases classified elsewhere (Final) - Body mass index (BMI) 25.0-25.9, adult (Final) - Presence of unspecified artificial shoulder joint (Final) - Vitamin deficiency, unspecified (Final) - Hewitt's esophagus without dysplasia (Final) - Discharge Disposition: Home or Self [...] )4 Scleroderma(Confirme Active d) 1Data migrated from [facility] on 07/08/14. 2bilat 3chronic per pt report [...] > 100.4 F, Start date: 02/19/17 14:52:00 [employer]BILE HOME SET UP PERSON, Duration: 30 day, Stop date: 03/21/17 14:51:00 MOBILE HOME SET UP PERSON Notes: Do not exceed 4 gm/day. (Same as: Tylenol) Start Date: 02/19/17 Stop Date: 02/23/17 Status: Discontinued aspirin 81 mg, 1 tab, Route: PO, Drug form: ECTAB, Daily, Dosing Weight 68.2, kg, Start date: 02/21/17 9:00:00 MOBILE HOME SET UP PERSON, Duration: 30 day, Stop date: 03/22/17 9:00:00 MOBILE HOME SET UP PERSON Notes: Do not crush or chew.(Same As: Ecotrin) Start Date: 02/21/17 Stop Date: 02/23/17 Status: Discontinued aspirin 81 mg, PO, Daily, 0 Refill(s) Start Date: 02/18/17 Status: Ordered Ativan 1 mg, 1 tab, Route: PO, Drug form: TAB, Bedtime, Dosing Weight 68.2, kg, PRN Anx iety, Start date: 02/20/17 22:04:00 MOBILE HOME SET UP PERSON, Duration: 30 day, Stop date: 03/22/17 2 2:03:00 MOBILE HOME SET UP PERSON Notes: (Same as: Ativan) Start Date: 02/20/17 Stop Date: 02/23/17 Status: Discontinued Ativan 2 mg, 1 mL, Route: IV, Drug form: INJ, ONCE, Dosing Weight 68.2, kg, Start date: 02/20/17 1:15:00 MOBILE HOME SET UP PERSON, Stop date: 02/20/17 1:15:00 MOBILE HOME SET UP PERSON Notes: (Same as: Ativan) Start Date: 02/20/17 Stop Date: 02/20/17 Status: Completed Cymbalta 150 mg, Route: PO, Drug form: DRC, Bedtime, Dosing Weight 68.2, kg, Start date: 02/20/17 21:00:00 MOBILE HOME SET UP PERSON, Duration: 30 day, Stop date: 03/21/17 21:00:00 MOBILE HOME SET UP PERSON Start Date: 02/20/17 Stop Date: 02/20/17 Status: Deleted Cymbalta 90 mg, 3 cap, Route: PO, Drug form: DRC, Bedtime, Start date: 02/20/17 21:00:00 MOBILE HOME SET UP PERSON, Duration: 30 day, Stop date: 03/21/17 21:00:00 MOBILE HOME SET UP PERSON Notes: (Same as: Cymbalta) (Do Not Crush) Start Date: 02/20/17 Stop Date: 02/23/17 Status: Discontinued Diovan 160 mg, 1 tab, Route: PO, Drug form: TAB, Bedtime, Dosing Weight 68.2, kg, Start date: 02/20/17 21:00:00 MOBILE HOME SET UP PERSON, Duration: 30 day, Stop date: 03/21/17 21:00:00 MOBILE HOME SET UP PERSON Notes: Same as Diovan Start Date: 02/20/17 Stop Date: 02/23/17 Status: Discontinued docusate 100 mg, 1 cap, Route: PO, Drug form: CAP, BID, Dosing Weight 69.574, kg, PRN as needed for constipation, Start date: 02/19/17 14:52:00 MOBILE HOME SET UP PERSON, Duration: 30 day, St op date: 03/21/17 14:51:00 MOBILE HOME SET UP PERSON Notes: (Same as: Colace) (Do Not Crush) Start Date: 02/19/17 Stop Date: 02/23/17 Status: Discontinued enoxaparin 40 mg, 0.4 mL, Route: SUB-Q, Drug form: INJ, [id number], Dosing Weight 68.2, kg, S tart date: 02/20/17 2:00:00 MOBILE HOME SET UP PERSON, Duration: 30 day, Stop date: 03/21/17 2:00:[address] Notes: (Same as: Lovenox) Start Date: 02/20/17 Stop Date: 02/23/17 Status: Discontinued famotidine (ANES) Route: IV, Drug form: INJ, ONCE, Stop date: 02/21/17 11:17:00 MOBILE HOME SET UP PERSON Start Date: 02/21/17 Stop Date: 02/21/17 Status: Completed fentaNYL (ANES) Route: IV, Drug form: INJ, ONCE, Stop date: 02/21/17 11:17:00 MOBILE HOME SET UP PERSON Start Date: 02/21/17 Stop Date: 02/21/17 Status: Completed hydrALAZINE 10 mg, 0.5 mL, Route: IVP, Drug form: INJ, Q4H, Dosing Weight 69.574, kg, PRN Hy pertension, Start date: 02/19/17 14:54:00 MOBILE HOME SET UP PERSON, Duration: 30 day, Stop date: 03/12 14:53:00 MOBILE HOME SET UP PERSON Notes: (Same as: Apresoline)Push over 5 minutes Start Date: 02/19/17 Stop Date: 02/23/17 Status: Discontinued Lactated Ringers Injection IV (ANES) 1000 mL Route: IV, Total Volume: 1,000, Start date: 02/21/17 10:19:00 MOBILE HOME SET UP PERSON, Stop date: 11:19:00 MOBILE HOME SET UP PERSON Start Date: 02/21/17 Stop Date: 02/21/17 Status: Completed lidocaine (ANES) Route: IV, Drug form: INJ, ONCE, Stop date: 02/21/17 11:18:00 MOBILE HOME SET UP PERSON Start Date: 02/21/17 Stop Date: 02/21/17 Status: Completed Lipitor 10 mg, 1 tab, Route: PO, Drug form: TAB, Bedtime, Start date: 02/20/17 21:00:00 MOBILE HOME SET UP PERSON, Duration: 30 day, Stop date: 03/21/17 21:00:00 MOBILE HOME SET UP PERSON Notes: (Same As: Lipitor) Start Date: 02/20/17 Stop Date: 02/23/17 Status: Discontinued lovastatin 20 mg, Route: PO, Drug form: TAB, Bedtime, Dosing Weight 68.2, kg, Start date: 0 02/20/17 21:00:00 MOBILE HOME SET UP PERSON, Duration: 30 day, Stop date: 03/21/17 21:00:00 MOBILE HOME SET UP PERSON Start Date: 02/20/17 Stop Date: 02/20/17 Status: Deleted melatonin 3 mg, 1 tab, Route: PO, Drug form: TAB, Bedtime, Dosing Weight 69.574, kg, PRN S leep, Start date: 02/19/17 14:54:00 MOBILE HOME SET UP PERSON, Duration: 30 day, Stop date: 03/21/17 1 4:53:00 MOBILE HOME SET UP PERSON Notes: (Same as: Melatonin) Start Date: 02/19/17 Stop Date: 02/23/17 Status: Discontinued midazolam (ANES) Route: IV, Drug form: SOLN, ONCE, Stop date: 02/21/17 11:17:00 MOBILE HOME SET UP PERSON Start Date: 02/21/17 Stop Date: 02/21/17 Status: Completed Yoder 5/325 oral tablet 1 tab, Route: PO, Drug Form: TAB, Dosing Weight 68.2, kg, Q6H, PRN Pain Score 4- 6, Start date: 02/20/17 11:35:00 MOBILE HOME SET UP PERSON, Duration: 30 day, Stop date: 03/22/17 11:3 4:00 MOBILE HOME SET UP PERSON Notes: (Same as: Yoder 325/5) Do not exceed 4gm/day of acetaminophen. Start Date: 02/20/17 Stop Date: 02/23/17 Status: Discontinued Norvasc 10 mg, 2 tab, Route: PO, Drug form: TAB, Bedtime, Dosing Weight 68.2, kg, Start date: 02/20/17 21:00:00 MOBILE HOME SET UP PERSON, Duration: 30 day, Stop date: 03/21/17 21:00:00 MOBILE HOME SET UP PERSON Notes: (Same as: Norvasc) Start Date: 02/20/17 Stop Date: 02/23/17 Status: Discontinued ondansetron 4 mg, 2 mL, Route: IVP, Drug form: INJ, Q6H, Dosing Weight 69.574, kg, PRN Nause a & Vomiting, Start date: 02/19/17 14:52:00 MOBILE HOME SET UP PERSON, Duration: 30 day, Stop date: 03/21/17 14:51:00 MOBILE HOME SET UP PERSON Notes: (Same as: Zofran) MEDICATION WASTE Product Size: 4 mgProduct Was layla: ___ mg Start Date: 02/19/17 Stop Date: 02/23/17 Status: Discontinued ondansetron (ANES) Route: IV, Drug form: INJ, ONCE, Stop date: 02/21/17 11:38:00 MOBILE HOME SET UP PERSON Start Date: 02/21/17 Stop Date: 02/21/17 Status: Completed phenylephrine (ANES) Route: IV, Drug form: INJ, ONCE, Stop date: 02/21/17 11:27:00 MOBILE HOME SET UP PERSON Start Date: 02/21/17 Stop Date: 02/21/17 Status: Completed propofol (ANES) Route: IV, Drug form: INJ, ONCE, Stop date: 02/21/17 11:18:00 MOBILE HOME SET UP PERSON Start Date: 02/21/17 Stop Date: 02/21/17 Status: Completed Proventil HFA 90 mcg/inh inhalation aerosol with adapter 180 microgram, Route: INHALATION, Drug Form: AERO/A, Dosing Weight 68.2, kg, QID , PRN Wheezing, Start date: 02/20/17 11:27:00 MOBILE HOME SET UP PERSON, Duration: 30 day, Stop date: 03/22/17 11:26:00 MOBILE HOME SET UP PERSON Notes: Albuterol 90 microgram/inh 8gm HFAWASTE: Aerosol - Return to [facility] as: Ventanny, Proventil Start Date: 02/20/17 Stop Date: 02/23/17 Status: Discontinued Remeron 90 mg, 6 tab, Route: PO, Drug form: TAB, Bedtime, Dosing Weight 68.2, kg, Start date: 02/20/17 1:35:00 MOBILE HOME SET UP PERSON, Duration: 30 day, Stop date: 03/21/17 21:00:00 MOBILE HOME SET UP PERSON Notes: (Same as:Remeron) Start Date: 02/20/17 Stop Date: 02/23/17 Status: Discontinued Sodium Chloride 0.9% IV 1,000 mL 1,000 mL, Rate: 200 ml/hr, Infuse over: 5 hr, Route: IV, Dosing Weight 68.2 kg, Total Volume: 1,000, Start date: 02/20/17 6:24:00 MOBILE HOME SET UP PERSON, Duration: 1 day, Stop radha e: 02/21/17 6:23:00 MOBILE HOME SET UP PERSON, 1.77, m2 Start Date: 02/20/17 Stop Date: 02/21/17 Status: Completed Topamax 200 mg, 2 tab, Route: PO, Drug form: TAB, Bedtime, Dosing Weight 68.2, kg, Start date: 02/20/17 21:00:00 MOBILE HOME SET UP PERSON, Duration: 30 day, Stop date: 03/21/17 21:00:00 MOBILE HOME SET UP PERSON Notes: (Same As: Topamax)"Do Not Crush" Start Date: 02/20/17 Stop Date: 02/23/17 Status: Discontinued Vanco level due 02/22/17-07:30am Vanco level due 02/22/17-07:30am, reminder, Drug form: MISC, Route: MISC, ONCE, 02/22/17 7:30:00 MOBILE HOME SET UP PERSON, Stop date: 02/22/17 7:30:00 MOBILE HOME SET UP PERSON Start Date: 02/22/17 Stop Date: 02/22/17 Status: Completed vancomycin 1,000 mg, Route: IVPB, Drug form: INJ, ONCE, Dosing Weight 68.2, kg, Start date: 02/23/17 11:19:00 MOBILE HOME SET UP PERSON, Stop date: 02/23/17 11:19:00 MOBILE HOME SET UP PERSON, ABX Indication: Other (specify in Comments) Start Date: 02/23/17 Stop Date: 02/23/17 Status: Discontinued vancomycin + Sodium Chloride 0.9% IV 250 mL 1 gm, Route: IV, ONCE, Dosing Weight 68.2, kg, Start date: 02/23/17 14:03:00 MOBILE HOME SET UP PERSON , Stop date: 02/23/17 14:03:00 MOBILE HOME SET UP PERSON, ABX Indication: Other (specify in Comments) Notes: TIME CRITICAL MEDICATION(Same As: Vancocin)Infusion rate< 1000 mg: infuse over 1 [id number] - 1500 mg: infuse over 1.5 [id number] - 2000 mg: infuse over 2 hours> [...] Duration: 30 day, Stop date: 03/22/17 9:00:00 MOBILE HOME SET UP PERSON, ABX Indication: Catheter- Related Infection Notes: TIME CRITICAL MEDICATION(Same As: Vancocin)Infusion rate< 1000 mg: infuse over 1 [id number] - 1500 mg: infuse over 1.5 [id number] - 2000 mg: infuse over 2 hours> 2001 mg: infuse over 2.5 hoursFor adult patients only: Round to nearest 250 mg per Medical Staff approval MEDICATION WASTE Product Size: 1000 mgProduct Wasted: ___ mg Start Date: 02/20/17 Stop Date: 02/20/17 Status: Canceled vancomycin + Sodium Chloride 0.9% IV 250 mL 750 mg, Route: IVPB, [id number], Start date: 02/21/17 9:00:00 MOBILE HOME SET UP PERSON, Duration: 30 day , Stop date: 03/22/17 21:00:00 MOBILE HOME SET UP PERSON, ABX Indication: Bacteremia Notes: TIME CRITICAL MEDICATION(Same As: Vancocin)Infusion rate< 1000 mg: infuse over 1 [id number] - 1500 mg: infuse over 1.5 [id number] - 2000 mg: infuse over 2 hours> 2001 mg: infuse over 2.5 hoursFor adult patients only: Round to nearest 250 mg per Medical Staff approval MEDICATION WASTE Product Size: 1000 mgProduct Wasted: ___ mg Start Date: 02/21/17 Stop Date: 02/23/17 Status: Discontinued vancomycin + Sodium Chloride 0.9% IV 500 mL 1,750 mg, Route: IVPB, ONCE, Start date: 02/20/17 19:43:00 MOBILE HOME SET UP PERSON, Stop date: 02/20 19:43:00 MOBILE HOME SET UP PERSON, ABX Indication: Bacteremia Notes: TIME CRITICAL MEDICATION(Same As: Vancocin)Infusion rate< 1000 mg: infuse over 1 [id number] - 1500 mg: infuse over 1.5 sbexx2211 - 2000 mg: infuse over 2 hours> [...] Start Date: 02/23/17 Stop Date: 03/02/17 Status: Completed Vancomycin Pharmacy Dosing 1 ea, Route: MISC, ONCALL, Dosing Weight 68.2, kg, Start date: 02/20/17 20:00:00 MOBILE HOME SET UP PERSON, Duration: 10 day, Stop date: 03/02/17 19:59:00 MOBILE HOME SET UP PERSON, Pharmacy to dose, ABX Indication: Bacteremia Start Date: 02/20/17 Stop Date: 02/20/17 Status: Deleted Results ELECTROLYTES Most recent to 02 10 oldest [Reference Range]: Sodium Lvl [135-145 140 [...] *HI* (02/21/17 7:16 AM) (02/19/17 10:37 PM) MPV [7.4-10.4 fL] 6.6 fL 6.6 fL *LOW* *LOW* (02/21/17 7:16 AM) (02/19/17 10:37 PM) Platelet [133-450 318 K/CMM 379 K/CMM K/CMM] (02/21/17 7:16 AM) (02/19/17 10:37 PM) Segs [...] Related Diagnosis Body Site Status Insertion of Inoe-u-hptp5 03/13/17 Completed Insertion of tunneled centrally inserted 02/21/17 Completed central venous access device, with subcutaneous port; age 5 years or older Removal of Port-a-cath and groshong cath 02/21/17 Completed placement2 Removal of tunneled central venous access 02/21/17 Completed device, with subcutaneous port or pump, central or peripheral insertion Appendectomy3 Completed Bilateral oophorectomy Completed section4 Completed Cholecystectomy Completed Gastrectomy Completed Gastrectomy5 Completed Gastric stapling Completed Hysterectomy Completed Insertion of Port-a-cath Completed Nephrectomy6 Completed Operation7 Completed Operation8 Completed Operation9 Completed Wpfpowbxl63 Completed Fawpgicjt22 Completed ORIF - Open reduction and internal fixation Completed of qedytpph96 Removal of Zyib-n-dtzt72 Completed Tonsillectomy Completed Total knee mxtutubovvf03 Completed 1removal of groshong cath 2Removal of Port-a-cath and groshong cath placement 06807 4x1 5complete 6right 7lasik procedure 8multiple colon surgery and exploratory laparotomy, 9right hip surgery S/P fracture 10multiple adhesion surgeries 61azhc-q-yudx placement 12right leg 1304/2015 sx site clean [...] Temp Oral98.6 DegF (FEB 23:) Heart Rate Bwebssmkuq52 bpm (FEB 23:) Resp Rate 16 BRMIN (FEB 23:) GKL819 mmHg (FEB 23:) DBP76 mmHg (FEB 23:) BjC214 % (FEB 23:) General: NAD, alert and [...] no edema, cyanosis or clubbing : no brooten Hospital Course 56-year-old female who was a [...] MD Date: 02/23/17 Ifectious Disease Progress Note [facility] Dr. Mariya Coombs SUBJECTIVE Events reviewed. Patient seen and examined labs and medications reviewed . OBJECTIVE Doing well no new complaint Vitals and Temp: VitalsTmp(F)XzlnsCJOAEeS3QBQ9 02/23 07:3498.79079/245270--- 02/23 04:2998.048063/7116------ 02/23 00:1698.198740/7316------ 02/22 20:2698.205260/7918------ 02/22 15:3298.934758/234340--- 24 Hr Tmax: 98.8F (37.11c) at 02/22 [...] Meds: None PRN Meds (8):LORazepam (Ativan), acetaminophen-hydrocodone (Yoder 5/325 oral tablet), acetaminophen, albuterol (Proventil HFA [...] MD Date: 02/20/17 Ifectious Disease consult Note [facility] Dr. Mariya Coombs SUBJECTIVE: Patient seen and [...] a direct admission, under Dr. Han, to [facility] for further care and evaluation of her [...] Abuse Details: Use: None. Vitals and Temp: VitalsTmp(F)LtmvcEDBBFbD4TPL8 02/20 11:1698.435517/265787--- 02/20 07:2599.190145/275278--- 02/20 05:38859 02/20 04:63803.687498/8418------ 02/20 00:2299.273212/8116------ 24 Hr Tmax: 100.6F (38.11c) at 02/20 04:21Vital Signs are the last 5 in the past 48 hours. Input/Output RecordInOutBal 1224hr Tot 560 0 560 1124hr Tot 301 400 -99 Physical Exam Labs [...] (Diovan) Unscheduled Meds: None PRN Meds (7):acetaminophen-hydrocodone (Yoder 5/325 oral tablet), acetaminophen, albuterol (Proventil HFA [...] Haq MD Date: 02/20/17 full H&P dictated, #[id number] date/time: 02/20/2017 00:33
--- OUTSIDE RECORDS SUMMARY | 2018-10-11 16:27 | XMS REPORT ---
Author Author Talita Walton Organization [employer] Address Unknown Phone Unavailable Care Team Providers Care Foreign Student Adviser Name Role Phone Talita Walton CP Unavailable Allergies No Known Allergies Problems Problem Type Condition Code Onset Dates Condition Status Problem Osteoporosis M81.0 Active Problem Undifferentiated connective tissue disease M35.9 Active Problem Migraine aura without headache G43.109 Active Problem Unspecified diffuse connective tissue disease 710.9 Active Problem Hypertension 997.91 Active Problem APS (antiphospholipid syndrome) D68.61 Active Problem Antiphospholipid Syndrome - APS 289.81 Active Medications No Known Medications Results No Known Results Summary Purpose [employer] Submission
--- OUTSIDE RECORDS SUMMARY | 2018-10-11 16:27 | XMS REPORT ---
Author Author Talita Walton Organization [employer] Address Unknown Phone Unavailable Care Team Providers Care Manager Auto Name Role Phone Talita Walton CP Unavailable Allergies, Adverse Reactions, Alerts Substance Reaction Event Type Keflex Info Not Available Drug Allergy Iodine Info Not Available Drug Allergy Imitrex Info Not Available Drug Allergy Dexamethasone Info Not Available Drug Allergy Demerol Info Not Available Drug Allergy Cipro Info Not Available Drug Allergy immodium Info Not Available Non Drug Allergy sulfa Info Not Available Non Drug Allergy Taladine Info Not Available Drug Allergy dexamethphosphate Info Not Available Non Drug Allergy codine Info Not Available Non Drug Allergy Problems Problem Type Condition Code Onset Dates Condition Status Assessment High risk medication use Z79.899 Active Assessment APS (antiphospholipid syndrome) D68.61 Active Problem Osteoporosis M81.0 Active Problem Undifferentiated connective tissue disease M35.9 Active Problem Migraine aura without headache G43.109 Active Problem Unspecified diffuse connective tissue disease 710.9 Active Problem Hypertension 997.91 Active Problem APS (antiphospholipid syndrome) D68.61 Active Problem Antiphospholipid Syndrome - APS 289.81 Active Assessment Chronic fever R50.9 Active Assessment Pain, joint, multiple sites M25.50 Active Assessment Migraine without aura and without status migrainosus, not intractable G43.009 Active Assessment Undifferentiated connective tissue disease M35.9 Active Assessment Pain of finger of right hand M79.644 Active Assessment Osteoporosis M81.0 Active Assessment Pain in left finger(s) M79.645 Active Assessment Thoracic compression fracture S22.000A Active Medications Medication Code System Code Instructions Start Date End Date Status Dosage PredniSONE ND 09633300899 20 mg Orally Once a day Active 1 tablet Tegretol ND 84205659727 200 MG Orally Twice a day Active 1 tablet Cymbalta ND 41427016580 30 MG Orally Twice a day Active 2 capsules Plaquenil ND 64117927322 200 MG Orally Once a day Active 1.5 tabs Bentyl ND 10357937426 10 MG Orally as needed Active 1 capsule Saline Flush ND 71885532799 0.9 % Intravenous Active not defined Zofran ODT [facility] 15420507738 8 MG Orally Active not defined Ativan [facility] 31247933125 2 MG Orally Active 1 tablet at bedtime as needed Remeron [facility] 69589843841 45 MG Orally Once a day Active 1 tablet before bedtime in the evening Norvasc [facility] 87320858128 10 MG Orally Once a day Active 1 tablet Vanderwagen [facility] 77388853879 10-325 MG Orally every 6 hrs Active 1 tablet as needed B-12-SL [facility] 94619070245 1000 MCG Sublingual once a week Active 1 tablet under the tongue and allow to dissolve Lovastatin [facility] 63585442767 20 MG Orally Once a day Active 1 tablet with a meal Plaquenil [facility] 94420511986 200 MG Orally Once a day Active 1.5 tabs Vital Signs Date/Time: August 18, 2018 Height 64 in Blood Pressure Diastolic 80 mm Hg Blood Pressure Systolic 120 mm Hg Weight 170.0 lbs Results Name Result Date Reference Range Unit Abnormality Flag ANTI-CARDIOLIPIN ANTIBODY PANEL 0431-7 ----ANTI-CARDIOLIPIN,IgA 6 [id number] <22 APL ----ANTI-CARDIOLIPIN,IgG 6 13980141 <23 GPL ----ANTI-CARDIOLIPIN,IgM 3 [id number] <11 MPL TDPX-6-WTONZJUKOFCN I (G,A,M) ----ANTI-BETA2 GLYCO,IgG 3 50735089 <20 G UNIT ----ANTI-BETA2 GLYCO,IgA 21 05854816 <20 A UNIT H ----ANTI-BETA2 GLYCO,IgM 6 17348073 <20 M UNIT ESR (SED-RATE) ----ESR (SED-RATE) 31 61850066 <31 mm/hr H Summary Purpose [employer] Submission
--- OUTSIDE RECORDS SUMMARY | 2018-10-11 16:27 | XMS REPORT ---
Author Author Talita Walton Organization [employer] Address Unknown Phone Unavailable Care Team Providers Care Ski Edge Painter Name Role Phone Talita Walton CP Unavailable Allergies No Known Allergies Problems Problem Type Condition Code Onset Dates Condition Status Assessment APS (antiphospholipid syndrome) D68.61 Active Problem Osteoporosis M81.0 Active Problem Undifferentiated connective tissue disease M35.9 Active Problem Migraine aura without headache G43.109 Active Problem Unspecified diffuse connective tissue disease 710.9 Active Problem Hypertension 997.91 Active Problem APS (antiphospholipid syndrome) D68.61 Active Problem Antiphospholipid Syndrome - APS 289.81 Active Medications Medication Code System Code Instructions Start Date End Date Status Dosage Plaquenil [facility] 15809755778 200 MG Orally Once a day Active 1.5 tabs Cymbalta [facility] 59565318095 30 MG Orally Twice a day Active 2 capsules Results No Known Results Summary Purpose [employer] Submission
--- OUTSIDE RECORDS SUMMARY | 2018-10-11 16:27 | XMS REPORT | Summary of Care ---
Author Author [facility] Organization [facility] Address Unknown Phone Unavailable Encounter RICKI Candelario(GRADY) [id number] Date(s): 08/11/17 - 08/11/17 [facility] [address] [place] [address]- [phone] Discharge Disposition: Home or Self Care Attending Physician: Melisa Espinoza MD Referring Physician: Melisa Espinoza MD Vital Signs Most recent to 1 oldest [Reference Range]: Height 162.56 cm (08/11/17 12:44 PM) Weight 68.182 kg (08/11/17 12:44 PM) Body Mass Index 25.8 m2 (08/11/17 12:44 PM) Problem List Condition Effective Dates Status [...] Related Diagnosis Body Site Status Insertion of Muwn-f-rcdh3 03/13/17 Completed Removal of Port-a-cath and groshong cath 02/21/17 Completed placement2 Appendectomy3 Completed Bilateral oophorectomy Completed section4 Completed Cholecystectomy Completed Gastrectomy Completed Gastrectomy5 Completed Gastric stapling Completed Hysterectomy Completed Insertion of Port-a-cath Completed Nephrectomy6 Completed Operation7 Completed Operation8 Completed Operation9 Completed Jqjywwzwa61 Completed Hymoqlxak82 Completed ORIF - Open reduction and internal fixation Completed of auyqeijx90 Removal of Lzfz-s-otoy75 Completed Tonsillectomy Completed Total knee artssnouvik47 Completed 1removal of groshong cath 2Removal of Port-a-cath and groshong cath placement 44826 4x1 5complete 6right 7lasik procedure 8multiple colon surgery and exploratory laparotomy, 9right hip surgery S/P fracture 10multiple adhesion surgeries 57ijur-p-vnsr placement 12right leg 1304/2015 sx site clean [...]
--- OUTSIDE RECORDS SUMMARY | 2018-10-11 16:27 | XMS REPORT ---
Author Author Talita Walton Organization [employer] Address Unknown Phone Unavailable Care Team Providers Care Sample Dye Mixer Name Role Phone Talita Walton CP Unavailable [...] Start Date End Date Status Dosage PredniSONE [facility] 64052079561 20 mg Orally Once a day Active 1 tablet Results No Known Results Summary Purpose [employer] Submission
--- OUTSIDE RECORDS SUMMARY | 2018-10-11 16:27 | XMS REPORT ---
Author Author Talita Walton Organization [employer] Address Unknown Phone Unavailable Care Team Providers Care Lap Cutter Truer Operator Name Role Phone Talita Walton CP Unavailable Allergies No Known Allergies Problems Problem Type Condition Code Onset Dates Condition Status Assessment Osteoporosis M81.0 Active Assessment APS (antiphospholipid syndrome) D68.61 Active Assessment Undifferentiated connective tissue disease M35.9 Active Problem Osteoporosis M81.0 Active Problem Undifferentiated connective tissue disease M35.9 Active Problem Migraine aura without headache G43.109 Active Problem Unspecified diffuse connective tissue disease 710.9 Active Problem Hypertension 997.91 Active Problem APS (antiphospholipid syndrome) D68.61 Active Problem Antiphospholipid Syndrome - APS 289.81 Active Medications No Known Medications Results No Known Results Summary Purpose [employer] Submission
--- OUTSIDE RECORDS SUMMARY | 2018-10-11 16:27 | XMS REPORT ---
Author Author Talita Walton Organization [employer] Address Unknown Phone Unavailable Care Team Providers Care Physiognomist Name Role Phone Talita Walton CP Unavailable Allergies, Adverse Reactions, Alerts Substance Reaction Event Type Keflex Info Not Available Drug Allergy Iodine Info Not Available Drug Allergy Imitrex Info Not Available Drug Allergy Dexamethasone Info Not Available Drug Allergy Demerol Info Not Available Drug Allergy Cipro Info Not Available Drug Allergy immodium Info Not Available Non Drug Allergy Penicillin Info Not Available Drug Allergy sulfa Info Not Available Non Drug Allergy Taladine Info Not Available Drug Allergy dexamethphosphate Info Not Available Non Drug Allergy codine Info Not Available Non Drug Allergy Problems Problem Type Condition Code Onset Dates Condition Status Assessment Thoracic compression fracture S22.000A Active Assessment APS (antiphospholipid syndrome) D68.61 Active Assessment High risk medication use Z79.899 Active Problem Osteoporosis M81.0 Active Problem Undifferentiated connective tissue disease M35.9 Active Problem Migraine aura without headache G43.109 Active Problem Unspecified diffuse connective tissue disease 710.9 Active Problem Hypertension 997.91 Active Problem APS (antiphospholipid syndrome) D68.61 Active Problem Antiphospholipid Syndrome - APS 289.81 Active Assessment Chronic fever R50.9 Active Assessment Antiphospholipid Syndrome - APS 289.81 Active Assessment Pain in left finger(s) M79.645 Active Assessment Migraine without aura and without status migrainosus, not intractable G43.009 Active Assessment Pain, joint, multiple sites M25.50 Active Assessment Undifferentiated connective tissue disease M35.9 Active Assessment Pain of finger of right hand M79.644 Active Assessment Osteoporosis M81.0 Active Medications Medication Code System Code Instructions Start Date End Date Status Dosage Cymbalta [facility] 56285419553 30 MG Orally daily Active 4 capsules Macrobid [facility] 15438018711 100 MG Orally every 12 hrs Active 1 capsule with food B-12-SL [facility] 75352670520 1000 MCG Sublingual once a week Active 1 tablet under the tongue and allow to dissolve Saline Flush [facility] 82106811965 0.9 % Intravenous Active not defined Remeron [facility] 42657654508 45 MG Orally Once a day Active 1 tablet before bedtime in the evening Zofran ODT [facility] 54310812398 8 MG Orally Active not defined [place] [facility] 81985699828 10-325 MG Orally every 6 hrs Active 1 tablet as needed Ativan [facility] 41314815499 2 MG Orally Active 1 tablet at bedtime as needed Norvasc [facility] 38989865728 10 MG Orally Once a day Active 1 tablet Lovastatin [facility] 45593287851 20 MG Orally Once a day Active 1 tablet with a meal Tegretol [facility] 28895309762 200 MG Orally Twice a day Active 1 tablet Plaquenil [facility] 90483418376 200 MG Orally Once a day Active 1.5 tabs PredniSONE [facility] 18249622016 20 MG Orally Once a day Active 1 tablet Bentyl [facility] 34059108357 10 MG Orally as needed Active 1 capsule Vital Signs Date/Time: Nov 23, 2017 Height 64 in Blood Pressure Diastolic 95 mm Hg Blood Pressure Systolic 154 mm Hg Weight 161.4 lbs Results No Known Results Summary Purpose [employer] Submission
--- OUTSIDE RECORDS SUMMARY | 2018-10-11 16:27 | XMS REPORT ---
Author Author Talita Walton Organization [employer] Address Unknown Phone Unavailable Care Team Providers Care Color Receiver Name Role Phone Talita Walton CP Unavailable [...] Start Date End Date Status Dosage Cymbalta [facility] 24509277302 30 MG Orally Twice a day Active 2 capsules Plaquenil ND 41079107626 200 MG Orally Once a day Active 1.5 tabs Results No Known Results Summary Purpose [employer] Submission
--- OUTSIDE RECORDS SUMMARY | 2018-10-11 16:28 | XMS REPORT ---
Author Author Talita Walton Organization [employer] Address Unknown Phone Unavailable Care Team Providers Care Collateral Clerk Name Role Phone Talita Walton CP Unavailable [...] Instructions Start Date End Date Status Dosage Zofran ODT [facility] 73192229262 8 MG Orally Active not defined Norvasc [facility] 95736412696 10 MG Orally Once a day Active 1 tablet Tegretol [facility] 03972656416 200 MG Orally Twice a day Active 1 tablet Ativan [facility] 85306197820 2 MG Orally Active 1 tablet at bedtime as needed [place] [facility] 78598169617 10-325 MG Orally every 6 hrs Active 1 tablet as needed Remeron [facility] 13879997001 45 MG Orally Once a day Active 1 tablet before bedtime in the evening Lovastatin [facility] 89243293252 20 MG Orally Once a day Active 1 tablet with a meal Plaquenil [facility] 83885668776 200 MG Orally Once a day August 30, 2018 Active 1.5 tabs Cymbalta [facility] 19213480706 30 MG Orally Twice a day Active 2 capsules Saline Flush [facility] 80416448607 0.9 % Intravenous Active not defined Bentyl [facility] 56058322489 10 MG Orally as needed Active 1 capsule B-12-SL [facility] 93830850473 1000 MCG Sublingual once a week Active 1 tablet under the tongue and allow to dissolve PredniSONE [facility] 77834159556 20 mg Orally Once a day Active 1 tablet Vital Signs Date/Time: Mar 03, 2018 Height 64 in Blood Pressure Diastolic 71 mm Hg Blood Pressure Systolic 110 mm Hg Weight 163.4 lbs Results Name Result Date Reference Range Unit Abnormality Flag [id number] I (G,A,M) ----ANTI-BETA2 GLYCO,IgM 3 [id number] <20 MUNIT ----ANTI-BETA2 GLYCO,IgG 8 [id number] <20 GUNIT ----ANTI-BETA2 GLYCO,IgA 29 [id number] <20 AUNIT H ESR (SED-RATE) ----ESR (SED-RATE) 59 [id number] <31 mm/hr H CBC w/DIFF, PLATELET CT. ----PLATELET COUNT 444 20180303 140-425 x10(3)/uL H ----IMMATURE GRANULOCYTES 0.3 20180303 0.0-1.0 % ----MPV 9.4 20180303 8.6-12.1 fL ----POLYS 66.8 20180303 37.1-78.1 % ----RDW 17.9 20180303 12.0-15.5 % H ----MCHC 31.4 20180303 31.0-34.7 gm/dL ----MCH 24.3 20180303 25.2-32.6 pg L ----MCV 77.4 20180303 78.0-98.0 fL L ----MONOS 6.2 [id number] 3.0-11.9 % ----LYMPHS 22.7 20180303 13.7-50.9 % ----BASOS 0.9 20180303 0.0-1.0 % ----EOS 3.1 20180303 0.0-5.0 % ----WBC 7.05 20180303 4.00-10.10 x10(3)/uL ----RBC 4.07 20180303 3.58-5.19 x10(6)/uL ----HGB 9.9 20180303 11.0-15.5 gm/dL L ----HCT 31.5 20180303 31.5-44.8 % COMPREHENSIVE METABOLIC ----Chloride 105 20180303 96-108 mmol/L ----Potassium 4.7 20180303 3.5-5.5 mmol/L ----BUN 19 20180303 6-20 mg/dL ----CO2 18 20180303 22-29 mmol/L L ----e-GFR 74 20180303 >or=60 mL/min ----e-GFR, 86 20180303 >or=60 mL/min ----Creatinine 0.86 20180303 0.49-1.02 mg/dL ----Alk Phos 205 20180303 40-156 U/L H ----A/G Ratio 1.4 20180303 1.1-2.9 ----AST 15 20180303 <32 U/L ----Sodium 142 20180303 135-147 mmol/L ----Albumin 4.0 20180303 3.5-5.2 g/dL ----Calcium 9.1 20180303 8.6-10.4 mg/dL ----Bilirubin, Total <0.2 20180303 <1.2 mg/dL ----Globulin 2.9 20180303 1.7-3.7 g/dL ----Total Protein 6.9 20180303 5.9-8.4 g/dL ----ALT 12 20180303 <33 U/L ----Glucose 84 20180303 70-99 mg/dL ANTI-CARDIOLIPIN ANTIBODY PANEL 0431-7 ----ANTI-CARDIOLIPIN,IgA 7 20180303 <22 APL ----ANTI-CARDIOLIPIN,IgM 3 20180303 <11 MPL ----ANTI-CARDIOLIPIN,IgG 13 20180303 <23 GPL Summary Purpose eClinicalWorks Submission
--- OUTSIDE RECORDS SUMMARY | 2018-10-11 16:29 | XMS REPORT | Summary of Care ---
Author Author [facility] Organization [facility] Address Unknown Phone Unavailable Care Team Providers Care Nail Professional Name Role Phone Cb Krause MD PCP Edilson May MD 26 Melisa Espinoza MD 29 Reason for Visit * Reason Comments Follow Up Encounter Details Care Team Description Date Type Department Donaldo Cooper MD [address] [place] [address] [place] [address] Follow Up 09/23/2018 Office Visit [facility] Thoracic Surgery [address] [place] [address]; [address] [place], [place] [id number] Allergies Comments Active Allergy Reactions Severity Noted Date SHOCK Ciprofloxacin Hcl High SHOCK Codeine Sulfate High Demerol 08/03/2009 SHOCK Dexamethasone Sodium High Phosphate SHOCK Iodine High SHOCK Kdc:Yellow High Dye+Cephalexin+[place] Blue [facility]cf Keflex 08/03/2009 Imodium SHOCK Loperamide Hcl High Penicillins 08/03/2009 SHOCK Pentazocine-Naloxone High Sulfa Antibiotics 08/03/2009 SHOCK Sumatriptan Succinate High [place] 08/03/2009 documented as of this encounter (statuses as of 10/05/2018) Medications End Date Status Medication Sig Dispensed Refills Start Date Active NORCO 10-325 MG OR TABS prn pain 0 6 Active LASIX 40 MG OR TABS prn swelling 0 6 Active VITAMIN B-12 1000 MCG/ML once per wk 0 IJ SOLN 6 Active METRONIDAZOLE 0.75 % EX 0 CREA 6 Active mirtazapine (REMERON) 45 Take 90 mg by 0 MG tablet mouth nightly. Active duloxetine (CYMBALTA) 30 Take 150 mg 0 MG capsuleIndications: pt by mouth says that they take 200mg daily. per day Indications: pt says that they take 200mg per day Active lovastatin (MEVACOR) 10 Take 10 mg by 0 MG tablet mouth every evening. Active ondansetron (ZOFRAN ODT) Take 4 mg by 0 4 MG disintegrating mouth every 8 tablet hours as needed. Prn Active sucralfate (CARAFATE) 1 Take 1 g by 0 GM/10ML suspension mouth 2 times 1 daily. Active amlodipine (NORVASC) 10 Take 10 mg by 0 MG tablet mouth daily. Active Valsartan (DIOVAN OR) Take by 0 mouth. Active hydroxychloroquine Take 150 mg 0 (PLAQUENIL) 200 MG tablet by mouth daily. Active aspirin 81 MG tablet Take 81 mg by 0 mouth daily. Active losartan (COZAAR) 25 MG Take 25 mg by 0 tablet mouth daily. Active Xycutpxpng-FNTT-Xjwyhtyc Take by 0 (ESGIC OR) mouth as needed. Active Cyanocobalamin 1000 Inject as 0 MCG/ML KIT directed once a week. Active DULOXETINE HCL OR Take 120 mg 0 by mouth. Active carbamazepine (TEGRETOL) 0 100 MG chewable tablet 9 Active promethazine (PHENERGAN) prn 1 25 MG tablet 9 Active cephALEXin (KEFLEX) 500 One more day 0 MG capsule 9 Active DICYCLOMINE HCL Take by 0 ORIndications: teaspoon mouth. prn Indications: teaspoon prn documented as of this encounter (statuses as of 10/05/2018) Active Problems Problem Noted Date Ventral hernia, unspecified, without mention of obstruction or gangrene 03/10/2011 Bacteremia associated with IV line 01/06/2011 Dysphagia 08/23/2010 Malabsorption syndrome 08/03/2009 LIVER MASS 01/31/2008 RENAL INSUFFICIENCY 07/11/2005 FEVER 07/11/2005 FATIGUE 07/11/2005 ABDOMINAL PAIN, CHRONIC 07/11/2005 ALLERGIES-SEASONAL 07/11/2005 HERPES GENITALIS 07/11/2005 INTRAABDOMINAL ABSCESS HYPERCHOLESTEROLEMIA HYPERTENSION DEPRESSION INSOMNIA FIBROMYALGIA OSTEOPOROSIS NOS documented as of this encounter (statuses as of 10/05/2018) Social History Date Tobacco Use Types Packs/Day Years Used Never Smoker Smokeless Tobacco: Never Used Drinks/Week oz/Week Comments Alcohol Use No Sex Assigned at Date Recorded Not on file Industry Job Start Date Occupation Not on file Not on file Not on file Travel End Travel History Travel Start No recent travel history available. documented as of this encounter Last Filed Vital Signs Reading Time Taken Comments Vital Sign 99/70 09/23/2018 2:44 PM CDT Blood Pressure 95 09/23/2018 2:44 PM CDT Pulse 36.3 C (97.3 F) 09/23/2018 2:44 PM CDT Temperature - - Respiratory Rate - - Oxygen Saturation - - Inhaled Oxygen Concentration 73.5 kg (162 lb) 09/23/2018 2:44 PM CDT Weight 162.6 cm (5' 4") 09/23/2018 2:44 PM CDT Height 27.81 09/23/2018 2:44 PM CDT Body Mass Index documented in this encounter Progress Notes * Donaldo Cooper MD - 09/23/2018 2:45 PM CDT Thoracic Surgery Attending Note I, Dr. Donaldo Cooper, personally performed the services described in this docum entation, ascribed by Kandi Lopez, Thoracic Surgery HAT BLOCK BENCH HAND, in my presence, and i t is both accurate and complete. In brief, she is a 58-year-old woman with a history of morbid obesity who underw ent a vertical banded gastroplasty in August 2001. Due to worsening symptoms, she was converted to a Silvia-en-Y gastric bypass. She reports that her gastric pouch became necrotic and she underwent conversion to an esophagojejunostomy in May 2004. She reports having had a anastomotic leak postoperatively which was manag ed with surgical intervention. The details are not clear. Over the ensuing years , she's had multiple laparotomies for small bowel obstructions and multiple hieu ia repairs. She has been TPN dependent for several years; she tolerates only jacque e amount of liquids. She has persistent dysphagia to solids, regurgitation, and postoperative chest pain. As part of her evaluation, an upper GI series was obta ined which demonstrated a herniation of her Silvia limb into her mediastinum. She was subsequently referred for further evaluation and treatment. I performed an upper endoscopy and noted no esophageal strictures and a widely p atent anastomosis. I recommended a redo hiatal hernia repair and total enterolys is. On 08/30/18, Dr. Mccall and I performed a left thoracotomy to reduce her h iatal hernia, redo laparotomy, total enterolysis, redo hiatal hernia repair and jejunostomy placement. She had an unremarkable postoperative course. Due to in tolerance of various tube feed regimens, she was discharged on PO intake alone. She is tolerating a full liquid diet. She feels better as compared to her preo perative baseline. Her pain is well-controlled. In summary, Mrs. Carlisle is a 58-year-old woman with a type IV hiatal hernia follo wing a conversion to a Silvia-en-Y esophagojejunostomy who is doing well 3 weeks a fter a left thoracotomy, redo laparotomy, total enterolysis, redo hiatal hernia repair and jejunostomy placement. Her weight is relatively stable off tube feed s and she does not want to supplement her diet. Consequently, her J tube was re moved. She was cleared to advance her diet as tolerated. She was encouraged to eat small frequent meals. She will return in 3-4 weeks to assess her progress. Donaldo Cooper M.D. * Aniket Florence NP - 09/23/2018 2:45 PM CDT [facility] THORACIC SURGERY CLINIC FOLLOW UP SUBJECTIVE: Sneha Carlisle is a 58 y.o. female here for follow up of follow up of diaphr agmatic hernia, now s/p small bowel resection, hiatal hernia repair and Jejunost anjel tube placement 08/30/2018. Briefly has an extensive medical and abdominal surgical history. She reports un dergoing a vertical banded gastroplasty by in 08/2001, had complicati ons immediately during post-op period, converted to gastric bypass, failed gastr ic bypass, underwent complete gastrectomy in 05/2004 (), had multip le bowel obstructions and repairs, anastomotic leak, multiple hernia repairs, ex p lap for lysis of adhesions, multiple sepsis episodes due to TPN via PICC line. She was TPN dependant for nutrition for several years, started oral diet in 2015 and has been tolerating a full liquid diet fairly and uses port for hydration with IV fluids daily. She reports dysphagia to solids, vomiting for several year s, food getting stuck, chest pain and pressure after eating. If food gets stuck, she can bend over to get it dislodged. She also c/o lower abdominal pain which feels like tightening and attributes it to adhesions. Upper GI series recently noting a herniated portion of the pull jejunum above the diaphragm After careful evaluation Dr. Cooper recommended surgical intervention and she now returns for her first post operative visit. She reports she is doing better. S he is eating small frequent meals. She denies fever, uncontrolled pain cough, n ight sweats, diarrhea or constipation. She has not used her feeding tube. PROCEDURES: 08/30/2018 1. Flexible esophagogastroduodenoscopy (Dr. Cooper). 2. Left thoracotomy, lysis of adhesions (20 minutes), and reduction of hiatal hernia (Dr. Cooper). 3. Redo laparotomy, extensive lysis of adhesions, small bowel resection (Dr. Martinez). 4. Redo hiatal hernia repair (Dr. Cooper). 5. Feeding jejunostomy tube placement (Dr. Martinez). INTERIM IMAGING: CXR: Left lower lobe linear scarring with a small left pleural effusion, new REVIEW OF SYSTEMS: 14 point review of symptoms is negative except for the complaints noted above. PHYSICAL EXAM: BP 99/70 (BP Location: left arm, Patient Position: Sitting) | Pulse 95 | Temp 97.5 F (36.4 C) | Ht 5' 4" (1.626 m) | Wt 162 lb (73.5 kg) | BMI 27.81 kg /m Overall well-appearing, comfortable, and in no distress. No difficulty in climbi ng upon the exam room table. Sclera are anicteric and mucous membrane are moist. No evidence of cervical, supraclavicular, or axillary lymphadenopathy. Symmetric bilateral chest excursion, with no chest wall tenderness. Clear breath sounds in all posterior bilateral lung gardner Left VATS incision is healing well without erythema or drainage. [address] suture in place. Normal cardiac examination without murmurs or rubs. Abdomen is soft, nontender, and non distended. Abdo vinita incision is healing well without erythema or drainage. J-tube secure. No u pper extremity swelling or clubbing. No lower extremity edema. Skin exam is nor mal. Neurologic exam is nonfocal and gait is normal. IMPRESSION AND RECOMMENDATIONS: In Summary Sneha Carlisle is a 58 y.o. female with extensive Past medical and surgical history, now post op from Hiatal hernia repair, small bowel resection and J tube placement. She is recovering quite well. I have removed her J tube as well as her remaining CT suture. She will continue to follow with her pain p hysician and advance her diet as she is able. She will return to see us in 3 we eks. I, Aniket Florence, SURYA-LORNE, am scribing for, and in the presence of, Dr. Cooper. Aniket Florence, RN, MSN, SURYA-BC, [facility] Nurse Practitioner, Thoracic Surgery documented in this encounter Plan of Treatment Care Team Description Date Type Specialty Donaldo Cooper MD [address] [place] [address] [place] [id number] [phone] 10/14/2018 Office Visit Thoracic Surgery Health Maintenance Due Date Last Done Comments COLON CANCER SCREENIN1959 COLONOSCOPY MAMMOGRAM ANNUAL 1960 MEDICARE AWV 1960 BMI FOLLOW UP PLAN 05/14/1977 HEPATITIS C SCREENING 05/14/1977 HIV SCREENING 05/14/1977 CERVICAL CANCER SCREENING 05/14/1980 3 YEAR FOLLOW UP FLU VACCINE > 6 MONTHS 09/09/2018 TETANUS SHOT (ADULT) 10/31/2026 10/31/2016 documented as of this encounter Results Not on filedocumented in this encounter Visit Diagnoses Diagnosis H/O hiatal hernia - Primary Personal history of other diseases of digestive system documented in this encounter Insurance Type Payer Benefit Subscriber ID Effective Phone Address Plan / Dates Group Medicare MEDICARE MEDICARE xxxxxxxxxxx 2005-P [address] resent [id number] [place] [address] PPO BLUE CROSS BLUE SHIELD OUT OF xxxxxxxxxxxx 2018-P [address] [facility], [facility]1983 BCBS resent [id number] - PPO - [facility] [id number] documented as of this encounter Advance Directives Patient Prevention Specialist Explanation Type Date Recorded Advance Directives and Living Will Power of Human Resources Support Specialist
--- OUTSIDE RECORDS SUMMARY | 2018-10-11 16:29 | XMS REPORT ---
Author Author [facility] Address Unknown Phone Unavailable Care Team Providers Care Clerical Aide Teacher Name Role Phone JUANJOSE METZGER Unavailable Unavailable CODEY CARSON Unavailable Unavailable SHELEO KHAN Unavailable Unavailable DAVID, JOSIE Unavailable Unavailable DAVID, JORGE Unavailable Unavailable Problems This patient has no known problems. Allergies, Adverse Reactions, Alerts This patient has no known allergies or adverse reactions. Medications This patient has no known medications. Encounters Start Date/Time End Date/Time Encounter Type Admission Type Attending Clinicians Care Facility Care Department Encounter ID 2018-08-19 08:19:00 2018-08-19 08:19:00 Outpatient [facility] 7516 Results Test Description Test Time Test Comments Text Results Atomic Results Result Comments POCT-GLUCOSE METER 2018-09-14 13:05:00 POC-GLUCOSE METER (BEAKER) (test aklo=8522) 89 mg/dL 70-110 TESTED AT [address] [address] RAD, CHEST, 1 VIEW, NON [id number] 09:47:00Reason for exam:->post opIs the patient ?->NoShould this be performed at the bedside?->YesFINAL REPORT TECHNIQUE: Frontal chest radiograph dated 09/14/2018. CLINICAL HISTORY: Post op COMPARISON STUDY: Chest radiograph dated 09/13/2018 IMPRESSION:Left-sided MediPort is unchanged in position. Stable scarring/trace pleural effusion on the left. There is no change in the left lung base atele ctasis. No pneumothorax. Cardiomediastinal silhouette is normal in size. No pulm onary edema. Bones are osteopenic. Kyphoplasty material is seen in T7. Signed: Kane Wynneport Verified Date/Time: 09/14/2018 09:47:42 Reading Loca tion: [facility] Mammo Reading Room -GLUCOSE [id number] 06:48:00* Test Item Value Reference Range Comments POC-GLUCOSE METER (BEAKER) (test enid=4151) 98 mg/dL 70-110 TESTED AT [facility] [address] [facility] [address] [id number] 05:07:00* Test Item Value Reference Range Comments PHOSPHORUS (BEAKER) (test suej=135) 3.3 mg/dL 2.3-4.7 [id number] 05:07:00* Test Item Value Reference Range Comments MAGNESIUM (BEAKER) (test ansp=149) 2.2 mg/dL 1.6-2.6 BASIC METABOLIC [id number] 05:07:00* Test Item Value Reference Range Comments SODIUM (BEAKER) (test rngs=254) 137 meq/L 136-145 POTASSIUM (BEAKER) (test ayxt=460) 3.9 meq/L 3.5-5.1 CHLORIDE (BEAKER) (test njna=440) 103 meq/L 98-107 CO2 (BEAKER) (test dxjv=387) 27 meq/L 22-29 BLOOD UREA NITROGEN (BEAKER) (test kxxv=031) 11 mg/dL 7-21 CREATININE (BEAKER) (test fqls=349) 0.76 mg/dL 0.57-1.25 GLUCOSE RANDOM (BEAKER) (test lfnd=103) 80 mg/dL 70-105 CALCIUM (BEAKER) (test jdct=516) 8.4 mg/dL 8.4-10.2 EGFR (BEAKER) (test ahux=8390) 78 mL/min/1.73 sq m ESTIMATED GFR IS NOT ACCURATE CREATININE CLEARANCE IN PREDICTING GLOMERULAR FILTRATION RATE. ESTIMATED GFR IS NOT APPLICABLE FOR DIALYSIS PATIENTS. CBC W/PLT COUNT & AUTO [id number] 04:57:00* Test Item Value Reference Range Comments WHITE BLOOD CELL COUNT (BEAKER) (test jttb=393) 12.1 K/ L 3.5-10.5 RED BLOOD CELL COUNT (BEAKER) (test qece=902) 3.87 M/ L 3.93-5.22 HEMOGLOBIN (BEAKER) (test dapw=934) 9.6 GM/DL 11.2-15.7 HEMATOCRIT (BEAKER) (test zopf=288) 31.8 % 34.1-44.9 MEAN CORPUSCULAR VOLUME (BEAKER) (test ntsd=873) 82.2 fL 79.4-94.8 MEAN CORPUSCULAR HEMOGLOBIN (BEAKER) (test igzp=097) 24.8 pg 25.6-32.2 MEAN CORPUSCULAR HEMOGLOBIN CONC (BEAKER) (test ccyr=537) 30.2 GM/DL 32.2-35.5 RED CELL DISTRIBUTION WIDTH (BEAKER) (test rhhe=927) 19.2 % 11.7-14.4 PLATELET COUNT (BEAKER) (test ltnd=055) 687 K/CU MM 150-450 MEAN PLATELET VOLUME (BEAKER) (test hqpa=088) 8.7 fL 9.4-12.3 NUCLEATED RED BLOOD CELLS (BEAKER) (test uqml=944) 0 /100 WBC 0-0 NEUTROPHILS RELATIVE PERCENT (BEAKER) (test dpav=720) 67 % LYMPHOCYTES RELATIVE PERCENT (BEAKER) (test zqzd=308) 16 % MONOCYTES RELATIVE PERCENT (BEAKER) (test wpad=114) 5 % EOSINOPHILS RELATIVE PERCENT (BEAKER) (test kgvk=186) 10 % BASOPHILS RELATIVE PERCENT (BEAKER) (test bmas=750) 1 % NEUTROPHILS ABSOLUTE COUNT (BEAKER) (test pkhi=937) 8.05 K/ L 1.56-6.13 LYMPHOCYTES ABSOLUTE COUNT (BEAKER) (test qixg=829) 1.99 K/ L 1.18-3.74 MONOCYTES ABSOLUTE COUNT (BEAKER) (test vfnm=639) 0.61 K/ L 0.24-0.36 EOSINOPHILS ABSOLUTE COUNT (BEAKER) (test bser=734) 1.20 K/ L 0.04-0.36 BASOPHILS ABSOLUTE COUNT (BEAKER) (test vtmq=954) 0.09 K/ L 0.01-0.08 IMMATURE GRANULOCYTES-RELATIVE PERCENT (BEAKER) (test fsrk=5593) 1 % 0-1 POCT-GLUCOSE [id number] 23:56:00* Test Item Value Reference Range Comments POC-GLUCOSE METER (BEAKER) (test cpho=9236) 83 mg/dL 70-110 TESTED AT [facility] [address] [facility] [address] POCT-GLUCOSE [id number] 17:43:00* Test Item Value Reference Range Comments POC-GLUCOSE METER (BEAKER) (test diiw=4486) 93 mg/dL 70-110 TESTED AT [facility] [address] [facility] [address] TISSUE [id number] 16:54:00Surgical Pathology Report Case: [id number] Authorizing Provider: Donaldo Metzger MD Collected: 08/30/2018 0931 Ordering Location: [facility] Received: 08/30/2018 1411 PERIOPERATIVE SERVICES Pathologist: Stephanie Edgar MD Specimens: A) - Rib, Left, PIECE OF RIB B) - Small Bowel, NOS, SMALL BOWEL #1 C) - Small Bowel, NOS, SMALL BOWEL #2 A. RIB, LEFT, REMOVAL: - RIB IDENTIFIED (GROSS DIAGNOSIS)B. SMALL BOWEL, LABELED "#1", RESECTION: - FOCAL MUCOSAL ISCHEMIC CHANGES - ACUTE SEROSITIS WITH FOCAL SEROSAL HEMORRHAGE AND ADHESION - VIABLE SURGICAL RESECTION MARGINSC. SMALL BOWEL, LABELED "#2", RESECTION: - FOCAL MUCOSAL ISCHEMIC CHANGES - ACUTE SEROSITIS WITH SEROSAL HEMORRHAGE AND ADHESION - VIABLE SURGICAL RESECTION MARGINS Signing Pathologist Direct Phone Line: [phone] signed by Stephanie Edgar MD on 09/13/2018 at 4:54 [id number], [id number] x 2Hiatal hernia, partial intestinal obstruction, unspecified causeA. Rib, left, piece of rib; B. Small bowel, NOS; C. Small bowel, Nos #[id number]. The case is received in one part labeled with the patient's name, Sneha Carlisle, date of 1960 and accession number [id number] which corresponds to accompanying requisition page labeled [...] cm in length and 3 cm in d iameter. There is a minimal amount of attached, partially hemorrhagic adipose ti ssue. The serosa is dusky, lavender-maroon to pink and smooth to shaggy. The spe cimen is opened to reveal edematous, lavender-pink to davidson smooth mucosa. No bernadette s lesions are identified. Lymph nodes are not present in the adipose tissue. Rep resentative sections are submitted. Section code: B1, territory representative of each mar gin, en face; B2-B4, territory representative sections. C. Received fresh labeled with the patient's name, accession number and "small bowel #2" is an unoriented segment of small bowel measuring 10.5 cm in length and 2.5 cm in diameter. There is a mi nimal amount of attached adipose tissue with focal areas of hemorrhage. The sero sa is dusky, lavender-maroon to pink, smooth to shaggy with petechial hemorrhage s and areas of adhesions throughout. The specimen is opened to reveal davidson-pink, smooth, slightly edematous mucosa with no gross lesions. Lymph nodes are not pre sent in the adipose tissue. [employer] sections are submitted. Section code: C1, territory representative of each end, en face; C2-C4, territory representative sections. CG/pl Performed.[id number] 15:08:00* Test Item Value Reference Range Comments POTASSIUM (BEAKER) (test imgu=599) 3.9 meq/L 3.5-5.1 Check Serum Potassium level 2 hours after oral potassium replacement completed o r 30 min after intravenous potassium replacement.[id number] 15:08:00* Test Item Value Reference Range Comments MAGNESIUM (BEAKER) (test rtem=417) 2.1 mg/dL 1.6-2.6 Check Serum Potassium level 2 hours after oral potassium replacement completed o r 30 min after intravenous potassium replacement.RAD, CHEST, 1 VIEW, NON DEPT 2018-09-13 12:02:00Reason for exam:->post opIs the patient ?->NoShould this be performed at the bedside?->YesFINAL REPORT RAD, CHEST, 1 VIEW, NON DEPT CLINICAL INDICATION: post op COMPARISON: Radiograph 09/12/2018 TECHNIQUE: AP view of the chest FINDINGS: Unchanged left sided Mediport. Unchanged linear opacities at the left lung base. No new focal consolidation or pneumothorax. Cardiomediastinal silhouette, daniela, and pulmonary vasculature are unchanged. IMPRESSION:No significant interval change Signed: Katheryn Spangler Verified Date/Time: 09/13/2018 12:02:41 Reading Location: [facility] Radiology Reading Room -GLUCOSE [id number] 11:31:00* Test Item Value Reference Range Comments POC-GLUCOSE METER (BEAKER) (test duqe=0911) 105 mg/dL 70-110 TESTED AT [facility] [address] [facility] [address] CBC W/PLT COUNT & AUTO [id number] 07:50:00* Test Item Value Reference Range Comments WHITE BLOOD CELL COUNT (BEAKER) (test hcnm=153) 11.5 K/ L 3.5-10.5 RED BLOOD CELL COUNT (BEAKER) (test fmec=488) 3.96 M/ L 3.93-5.22 HEMOGLOBIN (BEAKER) (test zvbl=591) 9.8 GM/DL 11.2-15.7 HEMATOCRIT (BEAKER) (test pkze=233) 32.5 % 34.1-44.9 MEAN CORPUSCULAR VOLUME (BEAKER) (test bxfq=419) 82.1 fL 79.4-94.8 MEAN CORPUSCULAR HEMOGLOBIN (BEAKER) (test igla=132) 24.7 pg 25.6-32.2 MEAN CORPUSCULAR HEMOGLOBIN CONC (BEAKER) (test aego=470) 30.2 GM/DL 32.2-35.5 RED CELL DISTRIBUTION WIDTH (BEAKER) (test wheh=569) 18.8 % 11.7-14.4 PLATELET COUNT (BEAKER) (test xkqh=516) 761 K/CU MM 150-450 MEAN PLATELET VOLUME (BEAKER) (test zvhn=577) 8.7 fL 9.4-12.3 NUCLEATED RED BLOOD CELLS (BEAKER) (test ugqz=214) 0 /100 WBC 0-0 (CELLAVISION MANUAL DIFF)2018-09-13 07:50:00* Test Item Value Reference Range Comments NEUTROPHILS - REL (CELLAVISION)(BEAKER) (test ydpu=0955) 75 % LYMPHOCYTES - REL (CELLAVISION)(BEAKER) (test wcly=1434) 9 % MONOCYTES - REL (CELLAVISION)(BEAKER) (test yqwj=8517) 2 % EOSINOPHILS - REL (CELLAVISION)(BEAKER) (test ibpf=4734) 14 % NEUTROPHILS - ABS (CELLAVISION)(BEAKER) (test edto=5642) 8.63 K/ul 1.56-6.13 LYMPHOCYTES - ABS (CELLAVISION)(BEAKER) (test obed=8177) 1.04 K/ul 1.18-3.74 MONOCYTES - ABS (CELLAVISION)(BEAKER) (test wahr=3350) 0.23 K/uL 0.24-0.36 EOSINOPHILS - ABS (CELLAVISION)(BEAKER) (test gdph=1208) 1.61 K/uL 0.04-0.36 TOTAL COUNTED (BEAKER) (test yugn=6833) 100 WBC MORPHOLOGY (BEAKER) (test zizg=092) Normal LARGE PLT(BEAKER) (test cesi=5103) Present POLYCHROMATOPHILLIC RBCS(BEAKER) (test awxd=120) 1+ few HYPOCHROMIA (BEAKER) (test ttyu=023) 1+ few ARTIFACT (CELLAVISION)(BEAKER) (test llmz=9947) Present PLATELET CONCENTRATION (CELLAVISION)(BEAKER) (test xvya=9150) Increased Received comment: User comments: Slide comments: POCT-GLUCOSE [id number] 05:51:00* Test Item Value Reference Range Comments POC-GLUCOSE METER (BEAKER) (test qspi=3382) 100 mg/dL 70-110 TESTED AT [address] [address] PROTEIN, [id number] 05:01:00* Test Item Value Reference Range Comments TOTAL PROTEIN (BEAKER) (test ttxs=131) 6.6 gm/dL 6.0-8.3 [id number] 05:01:00* Test Item Value Reference Range Comments MAGNESIUM (BEAKER) (test pkjs=807) 2.3 mg/dL 1.6-2.6 [id number] 05:01:00* Test Item Value Reference Range Comments PHOSPHORUS (BEAKER) (test fkdz=543) 3.7 mg/dL 2.3-4.7 BASIC METABOLIC [id number] 05:01:00* Test Item Value Reference Range Comments SODIUM (BEAKER) (test ctpr=735) 137 meq/L 136-145 POTASSIUM (BEAKER) (test ppkh=628) 3.9 meq/L 3.5-5.1 CHLORIDE (BEAKER) (test mczv=849) 103 meq/L 98-107 CO2 (BEAKER) (test plmw=714) 26 meq/L 22-29 BLOOD UREA NITROGEN (BEAKER) (test afqt=727) 11 mg/dL 7-21 CREATININE (BEAKER) (test cgrg=438) 0.79 mg/dL 0.57-1.25 GLUCOSE RANDOM (BEAKER) (test cpdt=428) 82 mg/dL 70-105 CALCIUM (BEAKER) (test xdwn=274) 8.4 mg/dL 8.4-10.2 EGFR (BEAKER) (test kgby=6535) 74 mL/min/1.73 sq m ESTIMATED GFR IS NOT ACCURATE CREATININE CLEARANCE IN PREDICTING GLOMERULAR FILTRATION RATE. ESTIMATED GFR IS NOT APPLICABLE FOR DIALYSIS PATIENTS. [id number] 05:01:00* Test Item Value Reference Range Comments ALBUMIN (BEAKER) (test jafn=8663) 3.0 g/dL 3.5-5.0 [id number] 04:58:00* Test Item Value Reference Range Comments PREALBUMIN (BEAKER) (test swud=324) 9 mg/dL 14-45 POCT-GLUCOSE [id number] 23:11:00* Test Item Value Reference Range Comments POC-GLUCOSE METER (BEAKER) (test cmie=7009) 96 mg/dL 70-110 TESTED AT [address] [address] POCT-GLUCOSE [id number] 18:03:00* Test Item Value Reference Range Comments POC-GLUCOSE METER (BEAKER) (test ijjt=5385) 82 mg/dL 70-110 TESTED AT [address] [address] POCT-GLUCOSE [id number] 11:52:00* Test Item Value Reference Range Comments POC-GLUCOSE METER (BEAKER) (test qcuz=3623) 96 mg/dL 70-110 TESTED AT [address] [address] [id number] 07:20:00* Test Item Value Reference Range Comments PHOSPHORUS (BEAKER) (test ktsj=127) 4.1 mg/dL 2.3-4.7 [id number] 07:20:00* Test Item Value Reference Range Comments MAGNESIUM (BEAKER) (test nihk=532) 2.3 mg/dL 1.6-2.6 BASIC METABOLIC [id number] 07:20:00* Test Item Value Reference Range Comments SODIUM (BEAKER) (test xyjl=411) 136 meq/L 136-145 POTASSIUM (BEAKER) (test ujhh=981) 3.8 meq/L 3.5-5.1 CHLORIDE (BEAKER) (test aolu=122) 100 meq/L 98-107 CO2 (BEAKER) (test vwqw=405) 30 meq/L 22-29 BLOOD UREA NITROGEN (BEAKER) (test cbki=044) 14 mg/dL 7-21 CREATININE (BEAKER) (test utql=281) 0.80 mg/dL 0.57-1.25 GLUCOSE RANDOM (BEAKER) (test crij=592) 80 mg/dL 70-105 CALCIUM (BEAKER) (test sfod=465) 8.3 mg/dL 8.4-10.2 EGFR (BEAKER) (test enux=0100) 73 mL/min/1.73 sq m ESTIMATED GFR IS NOT ACCURATE CREATININE CLEARANCE IN PREDICTING GLOMERULAR FILTRATION RATE. ESTIMATED GFR IS NOT APPLICABLE FOR DIALYSIS PATIENTS. RAD, CHEST, 1 VIEW, NON [id number] 07:20:00Reason for exam:->post opIs the patient ?->NoShould this be performed at the bedside?->YesFINAL REPORT TECHNIQUE: Frontal view of the chest. INDICATION: 58-year-old woman after surgery. COMPARISON: Chest radiograph 09/11/2018. F INDINGS: LINES/TUBES: Unchanged. LUNGS: Unchanged to slightly decreased linear a telectasis in the left lung base. No new consolidation or pulmonary edema. PLEUR A: Unchanged questionable trace left pleural effusion. No pneumothorax. HEART AN D MEDIASTINUM: The cardiomediastinal silhouette is unchanged. SOFT TISSUES AND B ONES: Bones are unchanged with prior cement augmentation of a midthoracic verteb ral body, likely T7. Unchanged cutaneous zully project over the upper abdomen at the midline. IMPRESSION:No significant change since 09/11/2018. Signed: Gavin Felder i MDReport Verified Date/Time: 09/12/2018 07:20:47 Reading Location: [facility] B1 C013Y CT Body Reading Room -GLUCOSE [id number] 05:50:00* Test Item Value Reference Range Comments POC-GLUCOSE METER (BEAKER) (test maku=1266) 89 mg/dL 70-110 TESTED AT [facility] [address] [facility] [address] CBC W/PLT COUNT & AUTO [id number] 05:22:00* Test Item Value Reference Range Comments WHITE BLOOD CELL COUNT (BEAKER) (test avkp=382) 10.4 K/ L 3.5-10.5 RED BLOOD CELL COUNT (BEAKER) (test rjpu=723) 3.75 M/ L 3.93-5.22 HEMOGLOBIN (BEAKER) (test mbbd=648) 9.1 GM/DL 11.2-15.7 HEMATOCRIT (BEAKER) (test vxvw=581) 30.9 % 34.1-44.9 MEAN CORPUSCULAR VOLUME (BEAKER) (test pwky=230) 82.4 fL 79.4-94.8 MEAN CORPUSCULAR HEMOGLOBIN (BEAKER) (test zrvz=167) 24.3 pg 25.6-32.2 MEAN CORPUSCULAR HEMOGLOBIN CONC (BEAKER) (test oatf=260) 29.4 GM/DL 32.2-35.5 RED CELL DISTRIBUTION WIDTH (BEAKER) (test imlj=067) 18.9 % 11.7-14.4 PLATELET COUNT (BEAKER) (test fkag=020) 723 K/CU MM 150-450 MEAN PLATELET VOLUME (BEAKER) (test vktc=381) 8.5 fL 9.4-12.3 NUCLEATED RED BLOOD CELLS (BEAKER) (test zppe=466) 0 /100 WBC 0-0 NEUTROPHILS RELATIVE PERCENT (BEAKER) (test bzjp=895) 64 % LYMPHOCYTES RELATIVE PERCENT (BEAKER) (test totg=209) 16 % MONOCYTES RELATIVE PERCENT (BEAKER) (test qnza=509) 5 % EOSINOPHILS RELATIVE PERCENT (BEAKER) (test lbtn=934) 12 % BASOPHILS RELATIVE PERCENT (BEAKER) (test ishu=337) 1 % NEUTROPHILS ABSOLUTE COUNT (BEAKER) (test xdrp=868) 6.66 K/ L 1.56-6.13 LYMPHOCYTES ABSOLUTE COUNT (BEAKER) (test loxz=560) 1.69 K/ L 1.18-3.74 MONOCYTES ABSOLUTE COUNT (BEAKER) (test poen=485) 0.53 K/ L 0.24-0.36 EOSINOPHILS ABSOLUTE COUNT (BEAKER) (test tpft=688) 1.26 K/ L 0.04-0.36 BASOPHILS ABSOLUTE COUNT (BEAKER) (test bvld=841) 0.07 K/ L 0.01-0.08 IMMATURE GRANULOCYTES-RELATIVE PERCENT (BEAKER) (test noay=7750) 2 % 0-1 POCT-GLUCOSE [id number] 23:34:00* Test Item Value Reference Range Comments POC-GLUCOSE METER (BEAKER) (test mifm=7981) 94 mg/dL 70-110 TESTED AT [address] [address] POCT-GLUCOSE [id number] 18:12:00* Test Item Value Reference Range Comments POC-GLUCOSE METER (BEAKER) (test hupp=8213) 92 mg/dL 70-110 TESTED AT [address] [address] POCT-GLUCOSE [id number] 12:04:00* Test Item Value Reference Range Comments POC-GLUCOSE METER (BEAKER) (test nwvj=9782) 98 mg/dL 70-110 TESTED AT [address] [address] RAD, CHEST, 1 VIEW, NON [id number] 07:50:00Reason for exam:->post opIs the patient ?->NoShould this be performed at the bedside?->YesFINAL REPORT INDICATION: post op TECHNIQUE: Chest radiograph, single view, portable technique. FINDINGS / IMPRESSION: Comparison to September 10.Small left pleural effusion and associated subsegmental atelectasis again de monstrated.Evidence of recent upper laparotomy.Left chest port and mid thoracic segment augmentation.No pulmonary edema and heart shadow normal in size.No pneum othorax. Signed: Dawson Valdez MDReport Verified Date/Time: 09/11/2018 07:50 :58 Reading Location: [facility] B1 C013X Ortho Consult Reading Room Electronically sig jessica by: DAWSON VALDEZ M.D. on 09/11/2018 07:50 AM POCT-GLUCOSE METER 2018-09-11 05:41:00* Test Item Value Reference Range Comments POC-GLUCOSE METER (BEAKER) (test lpfw=6143) 91 mg/dL 70-110 TESTED AT [facility] [address] [facility] [address] CBC W/PLT COUNT & AUTO [id number] 05:18:00* Test Item Value Reference Range Comments WHITE BLOOD CELL COUNT (BEAKER) (test bigs=072) 13.8 K/ L 3.5-10.5 RED BLOOD CELL COUNT (BEAKER) (test ifft=888) 4.10 M/ L 3.93-5.22 HEMOGLOBIN (BEAKER) (test lhyl=317) 10.0 GM/DL 11.2-15.7 HEMATOCRIT (BEAKER) (test mqxm=443) 33.6 % 34.1-44.9 MEAN CORPUSCULAR VOLUME (BEAKER) (test mxza=310) 82.0 fL 79.4-94.8 MEAN CORPUSCULAR HEMOGLOBIN (BEAKER) (test tyxy=872) 24.4 pg 25.6-32.2 MEAN CORPUSCULAR HEMOGLOBIN CONC (BEAKER) (test nkip=423) 29.8 GM/DL 32.2-35.5 RED CELL DISTRIBUTION WIDTH (BEAKER) (test ioam=314) 18.9 % 11.7-14.4 PLATELET COUNT (BEAKER) (test iheu=183) 766 K/CU MM 150-450 MEAN PLATELET VOLUME (BEAKER) (test wvfd=310) 9.0 fL 9.4-12.3 NUCLEATED RED BLOOD CELLS (BEAKER) (test haoi=394) 0 /100 WBC 0-0 NEUTROPHILS RELATIVE PERCENT (BEAKER) (test dztq=807) 74 % LYMPHOCYTES RELATIVE PERCENT (BEAKER) (test wrqa=438) 12 % MONOCYTES RELATIVE PERCENT (BEAKER) (test myyu=292) 4 % EOSINOPHILS RELATIVE PERCENT (BEAKER) (test dzvi=324) 8 % BASOPHILS RELATIVE PERCENT (BEAKER) (test mepa=054) 1 % NEUTROPHILS ABSOLUTE COUNT (BEAKER) (test kmka=311) 10.25 K/ L 1.56-6.13 LYMPHOCYTES ABSOLUTE COUNT (BEAKER) (test cwka=084) 1.64 K/ L 1.18-3.74 MONOCYTES ABSOLUTE COUNT (BEAKER) (test hylz=763) 0.53 K/ L 0.24-0.36 EOSINOPHILS ABSOLUTE COUNT (BEAKER) (test tskq=097) 1.10 K/ L 0.04-0.36 BASOPHILS ABSOLUTE COUNT (BEAKER) (test pcgc=458) 0.09 K/ L 0.01-0.08 IMMATURE GRANULOCYTES-RELATIVE PERCENT (BEAKER) (test zzsk=8621) 2 % 0-1 [id number] 04:56:00* Test Item Value Reference Range Comments PHOSPHORUS (BEAKER) (test pryj=098) 4.5 mg/dL 2.3-4.7 [id number] 04:56:00* Test Item Value Reference Range Comments MAGNESIUM (BEAKER) (test zpfk=530) 2.4 mg/dL 1.6-2.6 BASIC METABOLIC [id number] 04:56:00* Test Item Value Reference Range Comments SODIUM (BEAKER) (test ltow=468) 136 meq/L 136-145 POTASSIUM (BEAKER) (test xdsn=852) 4.1 meq/L 3.5-5.1 CHLORIDE (BEAKER) (test wzqv=882) 97 meq/L 98-107 CO2 (BEAKER) (test lfaw=576) 31 meq/L 22-29 BLOOD UREA NITROGEN (BEAKER) (test trny=013) 15 mg/dL 7-21 CREATININE (BEAKER) (test ewkb=216) 0.83 mg/dL 0.57-1.25 GLUCOSE RANDOM (BEAKER) (test semy=313) 94 mg/dL 70-105 CALCIUM (BEAKER) (test yclo=381) 8.6 mg/dL 8.4-10.2 EGFR (BEAKER) (test pncq=1993) 70 mL/min/1.73 sq m ESTIMATED GFR IS NOT ACCURATE CREATININE CLEARANCE IN PREDICTING GLOMERULAR FILTRATION RATE. ESTIMATED GFR IS NOT APPLICABLE FOR DIALYSIS PATIENTS. POCT-GLUCOSE [id number] 23:33:00* Test Item Value Reference Range Comments POC-GLUCOSE METER (BEAKER) (test osnl=8573) 113 mg/dL 70-110 TESTED AT [facility] [address] [facility] [address] POCT-GLUCOSE [id number] 18:47:00* Test Item Value Reference Range Comments POC-GLUCOSE METER (BEAKER) (test hrpc=1481) 122 mg/dL 70-110 TESTED AT [place] [id number] [facility] [address] [id number] 16:59:00* Test Item Value Reference Range Comments POTASSIUM (BEAKER) (test kgll=826) 4.1 meq/L 3.5-5.1 Specimen slightly hemolyzed POCT-GLUCOSE [id number] 12:12:00* Test Item Value Reference Range Comments POC-GLUCOSE METER (BEAKER) (test xjnk=0327) 114 mg/dL 70-110 TESTED AT [address] [address] [id number] 12:05:00* Test Item Value Reference Range Comments PHOSPHORUS (BEAKER) (test aabj=810) 4.4 mg/dL 2.3-4.7 [id number] 12:05:00* Test Item Value Reference Range Comments MAGNESIUM (BEAKER) (test ukyf=237) 2.5 mg/dL 1.6-2.6 BASIC METABOLIC [id number] 12:05:00* Test Item Value Reference Range Comments SODIUM (BEAKER) (test dpqk=401) 137 meq/L 136-145 POTASSIUM (BEAKER) (test cvvw=909) 3.7 meq/L 3.5-5.1 CHLORIDE (BEAKER) (test apkp=864) 96 meq/L 98-107 CO2 (BEAKER) (test vjjj=338) 28 meq/L 22-29 BLOOD UREA NITROGEN (BEAKER) (test wylg=163) 14 mg/dL 7-21 CREATININE (BEAKER) (test nogp=956) 0.95 mg/dL 0.57-1.25 GLUCOSE RANDOM (BEAKER) (test ulwi=508) 124 mg/dL 70-105 CALCIUM (BEAKER) (test hdrd=894) 8.6 mg/dL 8.4-10.2 EGFR (BEAKER) (test vrzq=8973) 60 mL/min/1.73 sq m ESTIMATED GFR IS NOT ACCURATE CREATININE CLEARANCE IN PREDICTING GLOMERULAR FILTRATION RATE. ESTIMATED GFR IS NOT APPLICABLE FOR DIALYSIS PATIENTS. CBC W/PLT COUNT & AUTO [id number] 11:47:00* Test Item Value Reference Range Comments WHITE BLOOD CELL COUNT (BEAKER) (test qpci=847) 12.2 K/ L 3.5-10.5 RED BLOOD CELL COUNT (BEAKER) (test yddq=074) 4.16 M/ L 3.93-5.22 HEMOGLOBIN (BEAKER) (test awuy=967) 10.2 GM/DL 11.2-15.7 HEMATOCRIT (BEAKER) (test fbmi=825) 33.9 % 34.1-44.9 MEAN CORPUSCULAR VOLUME (BEAKER) (test jdra=796) 81.5 fL 79.4-94.8 MEAN CORPUSCULAR HEMOGLOBIN (BEAKER) (test qrqi=498) 24.5 pg 25.6-32.2 MEAN CORPUSCULAR HEMOGLOBIN CONC (BEAKER) (test vrkc=783) 30.1 GM/DL 32.2-35.5 RED CELL DISTRIBUTION WIDTH (BEAKER) (test qcpf=524) 19.0 % 11.7-14.4 PLATELET COUNT (BEAKER) (test lhrc=540) 709 K/CU MM 150-450 MEAN PLATELET VOLUME (BEAKER) (test qnor=553) 9.3 fL 9.4-12.3 NUCLEATED RED BLOOD CELLS (BEAKER) (test japv=501) 0 /100 WBC 0-0 NEUTROPHILS RELATIVE PERCENT (BEAKER) (test wate=975) 78 % LYMPHOCYTES RELATIVE PERCENT (BEAKER) (test kuix=385) 10 % MONOCYTES RELATIVE PERCENT (BEAKER) (test qepd=830) 4 % EOSINOPHILS RELATIVE PERCENT (BEAKER) (test lwxh=718) 6 % BASOPHILS RELATIVE PERCENT (BEAKER) (test eaho=122) 1 % NEUTROPHILS ABSOLUTE COUNT (BEAKER) (test vbea=637) 9.57 K/ L 1.56-6.13 LYMPHOCYTES ABSOLUTE COUNT (BEAKER) (test ehca=733) 1.16 K/ L 1.18-3.74 MONOCYTES ABSOLUTE COUNT (BEAKER) (test wplk=475) 0.50 K/ L 0.24-0.36 EOSINOPHILS ABSOLUTE COUNT (BEAKER) (test hlju=284) 0.76 K/ L 0.04-0.36 BASOPHILS ABSOLUTE COUNT (BEAKER) (test lqzg=155) 0.07 K/ L 0.01-0.08 IMMATURE GRANULOCYTES-RELATIVE PERCENT (BEAKER) (test ifiq=5959) 1 % 0-1 RAD, CHEST, 1 VIEW, NON [id number] 08:41:00Reason for exam:->post opIs the patient ?->NoShould this be performed at the bedside?->YesFINAL REPORT RAD, CHEST, 1 VIEW, NON DEPT INDICATION: post op COMPARISON: Prior day's exam FINDINGS: Portable frontal view of the chest. IMPRESSION: Support Lines: Right IJ central venous catheter has been removed. The left IJ port catheter is stable. The port has been accessed. Lungs and pleu ra: Left subsegmental atelectasis and effusion unchanged. Right lung is clear. N o pneumothorax.Heart and mediastinum: Stable contours. Stable surgical changes.A dditional findings: None. Signed: JR Tai Robert MDReport Verified Da te/Time: 09/10/2018 08:41:20 Reading Location: [facility] Radiology Reading Room -GLUCOSE [id number] 05:49:00* Test Item Value Reference Range Comments POC-GLUCOSE METER (BEAKER) (test woal=0589) 105 mg/dL 70-110 TESTED AT [place] [id number] [facility] [address] POCT-GLUCOSE [id number] 23:16:00* Test Item Value Reference Range Comments POC-GLUCOSE METER (BEAKER) (test idki=4939) 106 mg/dL 70-110 TESTED AT [place] [id number] [facility] [address] POCT-GLUCOSE [id number] 17:57:00* Test Item Value Reference Range Comments POC-GLUCOSE METER (BEAKER) (test ayyl=2951) 131 mg/dL 70-110 TESTED AT [place] [id number] [facility] [address] U/S, [id number] 16:10:00Reason for exam:->LEFT pleural effusion, please place CT if possible, or thoracentesis if not able to place CTFINAL REPORT Procedure: Ultrasound guided drainage/chest tube insertion Indication: Left pleural effusion status post surgery Findings: P atient evaluated for ultrasound-guided drainage/chest tube insertion. Patient on ly has trace pleural fluid. Risk versus benefit of proceeding with procedure dis cussed with patient. Left pleural fluid is not amenable to ultrasound-guided angel luis inage at this time. Signed: Faizan Conklin MDReport Verified Date/Time: 2018 16:10:40 Reading Location: [facility] P006J Ultrasound Reading Room Electro nically signed by: FAIZAN CONKLIN on 09/09/2018 04:10 PM CBC W/PLT COUNT & AUTO [id number] 10:34:00* Test Item Value Reference Range Comments WHITE BLOOD CELL COUNT (BEAKER) (test fpzy=724) 10.7 K/ L 3.5-10.5 RED BLOOD CELL COUNT (BEAKER) (test hcpk=238) 3.98 M/ L 3.93-5.22 HEMOGLOBIN (BEAKER) (test hbrv=588) 9.7 GM/DL 11.2-15.7 HEMATOCRIT (BEAKER) (test sztj=761) 32.5 % 34.1-44.9 MEAN CORPUSCULAR VOLUME (BEAKER) (test cxer=314) 81.7 fL 79.4-94.8 MEAN CORPUSCULAR HEMOGLOBIN (BEAKER) (test wahp=356) 24.4 pg 25.6-32.2 MEAN CORPUSCULAR HEMOGLOBIN CONC (BEAKER) (test edsi=017) 29.8 GM/DL 32.2-35.5 RED CELL DISTRIBUTION WIDTH (BEAKER) (test fqok=398) 18.9 % 11.7-14.4 PLATELET COUNT (BEAKER) (test wgyv=685) 581 K/CU MM 150-450 MEAN PLATELET VOLUME (BEAKER) (test mtih=145) 9.3 fL 9.4-12.3 NUCLEATED RED BLOOD CELLS (BEAKER) (test lqms=142) 0 /100 WBC 0-0 (CELLAVISION MANUAL DIFF)2018-09-09 10:34:00* Test Item Value Reference Range Comments NEUTROPHILS - REL (CELLAVISION)(BEAKER) (test tqvv=1111) 72 % LYMPHOCYTES - REL (CELLAVISION)(BEAKER) (test yctv=7860) 14 % MONOCYTES - REL (CELLAVISION)(BEAKER) (test wqnk=7016) 6 % EOSINOPHILS - REL (CELLAVISION)(BEAKER) (test cukm=3943) 7 % ATYPICAL LYMPHOCYTES - REL (CELLAVISION)(BEAKER) (test xqbz=0729) 1 % 0-0 NEUTROPHILS - ABS (CELLAVISION)(BEAKER) (test kupr=8111) 7.70 K/ul 1.56-6.13 LYMPHOCYTES - ABS (CELLAVISION)(BEAKER) (test tplh=6623) 1.50 K/ul 1.18-3.74 MONOCYTES - ABS (CELLAVISION)(BEAKER) (test nboz=3965) 0.64 K/uL 0.24-0.36 EOSINOPHILS - ABS (CELLAVISION)(BEAKER) (test gyzf=9306) 0.75 K/uL 0.04-0.36 ATYPICAL LYMPHOCYTES - ABS (CELLAVISION)(BEAKER) (test jgjw=7020) 0.11 K/uL 0.00-0.00 TOTAL COUNTED (BEAKER) (test cmqk=0108) 100 RBC MORPHOLOGY (BEAKER) (test owcv=600) Normal WBC MORPHOLOGY (BEAKER) (test ybwj=789) Normal PLT MORPHOLOGY (BEAKER) (test hjcw=767) Normal ARTIFACT (CELLAVISION)(BEAKER) (test wnrq=2557) Present PLATELET CONCENTRATION (CELLAVISION)(BEAKER) (test mbuh=1409) Increased Received comment: User comments: Slide comments: PT/[id number] 10:19:00* Test Item Value Reference Range Comments PROTIME (BEAKER) (test klmp=102) 13.6 seconds 11.9-14.2 INR (BEAKER) (test llmv=790) 1.1 <=5.9 PARTIAL THROMBOPLASTIN TIME (BEAKER) (test eerb=455) 33.7 seconds 22.5-36.0 Effective 07/07/2018: PT Reference Range ChangeNew: 11.9-14.2 Previous: 11.7-14. 7RECOMMENDED COUMADIN/WARFARIN INR THERAPY RANGESSTANDARD DOSE: 2.0-3.0 Include s: PROPHYLAXIS for venous thrombosis, systemic embolization; TREATMENT for venou s thrombosis and/or pulmonary embolus.HIGH RISK: Target INR is 2.5-3.5 for patie nts wiht mechanical heart valves.RAD, CHEST, 1 VIEW, NON [id number] 07:36:00 Reason for exam:->post opIs the patient ?->NoShould this be performed at the bedside?->YesFINAL REPORT RAD, CHEST, 1 VIEW, NON DEPT INDICATION: post op COMPARISON: Prior day's exam FINDINGS: Portable frontal view of the chest. IMPRESSION: Support Lines: Stable. Lungs and pleura: Right lung remains clear. No interval change in left effusion or associated relaxation atelectasis. No pneumothorax.Heart and mediastinum: Stable contours. Additional findings: None. Signed: JR Tai Robert MDReport Verified Date/Time: 09/09/2018 07:36:27 Reading Location: [facility] Radiology Reading Room [id number] 06:23:00* Test Item Value Reference Range Comments PHOSPHORUS (BEAKER) (test dtya=186) 4.6 mg/dL 2.3-4.7 BASIC METABOLIC [id number] 06:23:00* Test Item Value Reference Range Comments SODIUM (BEAKER) (test ieeb=343) 137 meq/L 136-145 POTASSIUM (BEAKER) (test uvph=592) 3.7 meq/L 3.5-5.1 CHLORIDE (BEAKER) (test dgbs=494) 97 meq/L 98-107 CO2 (BEAKER) (test tnih=709) 31 meq/L 22-29 BLOOD UREA NITROGEN (BEAKER) (test kclh=635) 13 mg/dL 7-21 CREATININE (BEAKER) (test wkki=297) 0.87 mg/dL 0.57-1.25 GLUCOSE RANDOM (BEAKER) (test fmnr=994) 95 mg/dL 70-105 CALCIUM (BEAKER) (test xwci=612) 8.5 mg/dL 8.4-10.2 EGFR (BEAKER) (test zwqd=5570) 67 mL/min/1.73 sq m ESTIMATED GFR IS NOT ACCURATE CREATININE CLEARANCE IN PREDICTING GLOMERULAR FILTRATION RATE. ESTIMATED GFR IS NOT APPLICABLE FOR DIALYSIS PATIENTS. POCT-GLUCOSE [id number] 05:39:00* Test Item Value Reference Range Comments POC-GLUCOSE METER (BEAKER) (test hfqo=2737) 115 mg/dL 70-110 TESTED AT [facility] [address] [facility] [address] POCT-GLUCOSE [id number] 00:03:00* Test Item Value Reference Range Comments POC-GLUCOSE METER (BEAKER) (test cwhc=6947) 101 mg/dL 70-110 TESTED AT [address] [address] POCT-GLUCOSE [id number] 18:02:00* Test Item Value Reference Range Comments POC-GLUCOSE METER (BEAKER) (test sktb=3818) 115 mg/dL 70-110 TESTED AT [address] [address] POCT-GLUCOSE [id number] 12:58:00* Test Item Value Reference Range Comments POC-GLUCOSE METER (BEAKER) (test utco=2944) 102 mg/dL 70-110 TESTED AT [address] [address] RAD, ABDOMEN SERIES W/ UPRIGHT PA [id number] 10:38:00Reason for exam:-> Distention, possible ileus/SBOShould this be performed at the bedside?->NoIs the patient ?->NoFINAL REPORT RAD, ABDOMEN SERIES W/ UPRIGHT PA CHEST CLINICAL INDICATION: Distention, possible ileus/SBO COMPARISON: Radiograph 09/06/2017 TECHNIQUE: AP view of the chest, AP upright and supine views of the abdomen FINDINGS: Chest:Right IJ central venous catheter and left- sided Mediport are unchanged. There is a persistent left pleural effusion with left basilar atelectasis. No new focal consolidation or pneumothorax. Cardiomediastinal silhouette, daniela, and pulmonary vasculature are unchanged. Abdomen:Gastrostomy tube is unchanged. Right upper quadrant surgical clips and midline skin zully. No free air. There are scattered air fluid levels in distended small bowel loops primarily within the left upper abdomen. Other mildly dilated loops of small bowel in the lower abdomen. Nondistended colonic loops with small stool burden. Air is present distally within the rectum. No pneumatosis. IMPRESSION:1.Unchanged small left pleural effusion.2.Overall decrease in bowel caliber. Persistent air-fluid levels in distended small bowel loops primarily in the left upper abdomen.3.No free air. Signed: Katheryn Spanglerort Verified Date/Time: 09/08/2018 10:38:38 Reading Location: [facility] Reading Room W/PLT COUNT & AUTO [id number] 10:07:00 * Test Item Value Reference Range Comments WHITE BLOOD CELL COUNT (BEAKER) (test ryib=691) 10.8 K/ L 3.5-10.5 RED BLOOD CELL COUNT (BEAKER) (test kdvu=031) 3.90 M/ L 3.93-5.22 HEMOGLOBIN (BEAKER) (test ohsu=075) 9.6 GM/DL 11.2-15.7 HEMATOCRIT (BEAKER) (test ozfg=191) 31.8 % 34.1-44.9 MEAN CORPUSCULAR VOLUME (BEAKER) (test hqnw=763) 81.5 fL 79.4-94.8 MEAN CORPUSCULAR HEMOGLOBIN (BEAKER) (test kxtj=742) 24.6 pg 25.6-32.2 MEAN CORPUSCULAR HEMOGLOBIN CONC (BEAKER) (test kopx=951) 30.2 GM/DL 32.2-35.5 RED CELL DISTRIBUTION WIDTH (BEAKER) (test wcnz=818) 19.3 % 11.7-14.4 PLATELET COUNT (BEAKER) (test rijg=851) 514 K/CU MM 150-450 MEAN PLATELET VOLUME (BEAKER) (test yydh=505) 9.4 fL 9.4-12.3 NUCLEATED RED BLOOD CELLS (BEAKER) (test rksm=811) 0 /100 WBC 0-0 (CELLAVISION MANUAL DIFF)2018-09-08 10:07:00* Test Item Value Reference Range Comments NEUTROPHILS - REL (CELLAVISION)(BEAKER) (test mgzk=9298) 77 % LYMPHOCYTES - REL (CELLAVISION)(BEAKER) (test xkfz=3820) 9 % MONOCYTES - REL (CELLAVISION)(BEAKER) (test upvu=9878) 2 % EOSINOPHILS - REL (CELLAVISION)(BEAKER) (test vslt=2478) 9 % BASOPHILS - REL (CELLAVISION)(BEAKER) (test pxcr=6486) 1 % BANDS - REL (CELLAVISION)(BEAKER) (test ihcz=7751) 1 % 0-10 ATYPICAL LYMPHOCYTES - REL (CELLAVISION)(BEAKER) (test uvrx=9862) 1 % 0-0 NEUTROPHILS - ABS (CELLAVISION)(BEAKER) (test uerw=2623) 8.32 K/ul 1.56-6.13 LYMPHOCYTES - ABS (CELLAVISION)(BEAKER) (test tojk=4732) 0.97 K/ul 1.18-3.74 MONOCYTES - ABS (CELLAVISION)(BEAKER) (test cfgs=9303) 0.22 K/uL 0.24-0.36 EOSINOPHILS - ABS (CELLAVISION)(BEAKER) (test lafe=6124) 0.97 K/uL 0.04-0.36 BASOPHILS - ABS (CELLAVISION)(BEAKER) (test omub=1279) 0.11 K/uL 0.01-0.08 BANDS - ABS (CELLAVISION)(BEAKER) (test opwk=5911) 0.11 K/uL 0.00-0.80 ATYPICAL LYMPHOCYTES - ABS (CELLAVISION)(BEAKER) (test jbxz=3796) 0.11 K/uL 0.00-0.00 TOTAL COUNTED (BEAKER) (test kiba=5714) 100 PLT MORPHOLOGY (BEAKER) (test jwuk=661) Normal TOXIC GRANULATION (BEAKER) (test rqbo=402) Present POLYCHROMATOPHILLIC RBCS(BEAKER) (test fhfi=108) 1+ few HYPOCHROMIA (BEAKER) (test uskv=702) 1+ few ARTIFACT (CELLAVISION)(BEAKER) (test czkw=6838) Present PLATELET CONCENTRATION (CELLAVISION)(BEAKER) (test nbjt=8623) Increased Received comment: User comments: Slide comments: RAD, CHEST, 1 VIEW, NON DEPT 2018-09-08 06:32:00Reason for exam:->post opIs the patient ?->NoShould this be performed at the bedside?->YesFINAL REPORT Chest one view. Clinical history: post op Comparison: Chest radiograph 09/07/2018. Technique: A single frontal view of the chest was obtained. Findings:There is a right IJ central venous catheter with tip in the right atrium. There is a left IJ central venous catheter with tip in the SVC.The cardiomediastinal contours are stable. There is diffuse airspace consolidation in the left lower lobe which may represent atelectasis/or pneumonia. There is a small left pleural effusion. There is no pneumothorax. There are surgical skin zully in the upper abdomen. There are surgical clips in the right upper quadrant. There is gaseous dilatation of small bowel loops in the left upper quadrant which may represent an ileus however a small bowel obstruction cannot be excluded. Signed: Ivelisse Koehlereport Verified Date/Time: 09/08/2018 06:32:55 [id number] 06:25:00* Test Item Value Reference Range Comments PHOSPHORUS (BEAKER) (test uomv=027) 4.9 mg/dL 2.3-4.7 BASIC METABOLIC [id number] 06:25:00* Test Item Value Reference Range Comments SODIUM (BEAKER) (test peeo=857) 135 meq/L 136-145 POTASSIUM (BEAKER) (test dbev=488) 3.8 meq/L 3.5-5.1 CHLORIDE (BEAKER) (test pkrq=384) 97 meq/L 98-107 CO2 (BEAKER) (test afja=752) 29 meq/L 22-29 BLOOD UREA NITROGEN (BEAKER) (test jlxd=143) 14 mg/dL 7-21 CREATININE (BEAKER) (test tayp=845) 0.82 mg/dL 0.57-1.25 GLUCOSE RANDOM (BEAKER) (test mdtb=376) 94 mg/dL 70-105 CALCIUM (BEAKER) (test dysk=362) 8.4 mg/dL 8.4-10.2 EGFR (BEAKER) (test jsko=4408) 71 mL/min/1.73 sq m ESTIMATED GFR IS NOT ACCURATE CREATININE CLEARANCE IN PREDICTING GLOMERULAR FILTRATION RATE. ESTIMATED GFR IS NOT APPLICABLE FOR DIALYSIS PATIENTS. POCT-GLUCOSE [id number] 06:08:00* Test Item Value Reference Range Comments POC-GLUCOSE METER (BEAKER) (test prqv=2317) 107 mg/dL 70-110 TESTED AT [facility] [address] [facility] [address] POCT-GLUCOSE [id number] 23:43:00* Test Item Value Reference Range Comments POC-GLUCOSE METER (BEAKER) (test yfww=6481) 122 mg/dL 70-110 TESTED AT [address] [address] POCT-GLUCOSE [id number] 18:37:00* Test Item Value Reference Range Comments POC-GLUCOSE METER (BEAKER) (test oslb=3622) 110 mg/dL 70-110 TESTED AT [place] [id number] [facility] [address] CBC W/PLT COUNT & AUTO [id number] 14:14:00* Test Item Value Reference Range Comments WHITE BLOOD CELL COUNT (BEAKER) (test rnjh=633) 7.3 K/ L 3.5-10.5 RED BLOOD CELL COUNT (BEAKER) (test snvr=927) 3.73 M/ L 3.93-5.22 HEMOGLOBIN (BEAKER) (test ybuv=837) 9.0 GM/DL 11.2-15.7 HEMATOCRIT (BEAKER) (test xoly=880) 30.6 % 34.1-44.9 MEAN CORPUSCULAR VOLUME (BEAKER) (test kijb=707) 82.0 fL 79.4-94.8 MEAN CORPUSCULAR HEMOGLOBIN (BEAKER) (test hbhz=402) 24.1 pg 25.6-32.2 MEAN CORPUSCULAR HEMOGLOBIN CONC (BEAKER) (test nbpu=468) 29.4 GM/DL 32.2-35.5 RED CELL DISTRIBUTION WIDTH (BEAKER) (test lxyl=619) 19.7 % 11.7-14.4 PLATELET COUNT (BEAKER) (test jwsd=215) 429 K/CU MM 150-450 MEAN PLATELET VOLUME (BEAKER) (test ijwh=231) 9.1 fL 9.4-12.3 NUCLEATED RED BLOOD CELLS (BEAKER) (test qzou=493) 0 /100 WBC 0-0 (CELLAVISION MANUAL DIFF)2018-09-07 14:14:00* Test Item Value Reference Range Comments NEUTROPHILS - REL (CELLAVISION)(BEAKER) (test tqfz=5607) 84 % LYMPHOCYTES - REL (CELLAVISION)(BEAKER) (test fqxj=5042) 4 % MONOCYTES - REL (CELLAVISION)(BEAKER) (test dbvz=1642) 5 % EOSINOPHILS - REL (CELLAVISION)(BEAKER) (test kusk=1156) 4 % PROMYELOCYTES - REL (CELLAVSION)(BEAKER) (test hqoa=2038) 1 % 0-0 BANDS - REL (CELLAVISION)(BEAKER) (test cfyb=5948) 2 % 0-10 NEUTROPHILS - ABS (CELLAVISION)(BEAKER) (test pfxz=6516) 6.13 K/ul 1.56-6.13 LYMPHOCYTES - ABS (CELLAVISION)(BEAKER) (test wojw=2911) 0.29 K/ul 1.18-3.74 MONOCYTES - ABS (CELLAVISION)(BEAKER) (test bjxg=5130) 0.37 K/uL 0.24-0.36 EOSINOPHILS - ABS (CELLAVISION)(BEAKER) (test nqse=1430) 0.29 K/uL 0.04-0.36 PROMYELOCYTES - ABS (CELLAVISION)(BEAKER) (test ayed=7192) 0.07 K/uL 0.00-0.00 BANDS - ABS (CELLAVISION)(BEAKER) (test thix=7677) 0.15 K/uL 0.00-0.80 TOTAL COUNTED (BEAKER) (test qdxi=3172) 100 SMUDGE CELLS (BEAKER) (test bolr=4703) Present GIANT PLATELETS (BEAKER) (test lvcs=721) Present POLYCHROMATOPHILLIC RBCS(BEAKER) (test fbrg=027) 3+ many HYPOCHROMIA (BEAKER) (test wkrg=325) 1+ few ANISOCYTOSIS (BEAKER) (test bwnz=389) 2+ moderate MICROCYTES (BEAKER) (test lbse=351) 2+ moderate POIKILOCYTES (BEAKER) (test nvhd=068) 1+ few PLATELET CONCENTRATION (CELLAVISION)(BEAKER) (test fcgb=7528) Adequate Received comment: User comments: Slide comments: POCT-GLUCOSE [id number] 12:38:00* Test Item Value Reference Range Comments POC-GLUCOSE METER (BEAKER) (test bpyr=5500) 107 mg/dL 70-110 TESTED AT [facility] [address] [facility] [address] RAD, CHEST, 1 VIEW, NON [id number] 08:49:00Reason for exam:->post opIs the patient ?->NoShould this be performed at the bedside?->YesFINAL REPORT RAD, CHEST, 1 VIEW, NON DEPT CLINICAL INDICATION: post op COMPARISON: Radiograph 09/06/2018 TECHNIQUE: AP view of the chest F INDINGS/IMPRESSION: Support devices are unchanged. There is a persistent small left pleural effusion, with more confluent left midlung airspace opacity which m ay represent a layering loculated component, adjacent atelectasis, or developing consolidation. No other significant interval change. Signed: Katheryn Spangler eport Verified Date/Time: 09/07/2018 08:49:40 Reading Location: [facility] Reading Room [id number] 06:49:00* Test Item Value Reference Range Comments PHOSPHORUS (BEAKER) (test pswk=584) 4.5 mg/dL 2.3-4.7 BASIC METABOLIC [id number] 06:49:00* Test Item Value Reference Range Comments SODIUM (BEAKER) (test vlvb=469) 136 meq/L 136-145 POTASSIUM (BEAKER) (test gqxp=327) 4.2 meq/L 3.5-5.1 CHLORIDE (BEAKER) (test zczu=866) 100 meq/L 98-107 CO2 (BEAKER) (test vebq=616) 28 meq/L 22-29 BLOOD UREA NITROGEN (BEAKER) (test ahqq=580) 17 mg/dL 7-21 CREATININE (BEAKER) (test bokv=295) 0.80 mg/dL 0.57-1.25 GLUCOSE RANDOM (BEAKER) (test ujdg=345) 89 mg/dL 70-105 CALCIUM (BEAKER) (test xuom=847) 8.2 mg/dL 8.4-10.2 EGFR (BEAKER) (test hykl=3054) 73 mL/min/1.73 sq m ESTIMATED GFR IS NOT ACCURATE CREATININE CLEARANCE IN PREDICTING GLOMERULAR FILTRATION RATE. ESTIMATED GFR IS NOT APPLICABLE FOR DIALYSIS PATIENTS. POCT-GLUCOSE [id number] 05:31:00* Test Item Value Reference Range Comments POC-GLUCOSE METER (BEAKER) (test zppd=5522) 77 mg/dL 70-110 TESTED AT [facility] [address] [facility] [address] POCT-GLUCOSE [id number] 23:23:00* Test Item Value Reference Range Comments POC-GLUCOSE METER (BEAKER) (test dwuj=6467) 97 mg/dL 70-110 TESTED AT [place] [id number] [facility] [address] POCT-GLUCOSE [id number] 18:19:00* Test Item Value Reference Range Comments POC-GLUCOSE METER (BEAKER) (test kjor=4054) 95 mg/dL 70-110 TESTED AT [place] [id number] [facility] [address] POCT-GLUCOSE [id number] 11:57:00* Test Item Value Reference Range Comments POC-GLUCOSE METER (BEAKER) (test fhlt=7006) 123 mg/dL 70-110 TESTED AT [facility] [address] [facility] [address] RAD, ABDOMEN/KUB, 1 VIEW [id number] 08:42:00Reason for exam:->eval ileusFINAL REPORT RAD, ABDOMEN/KUB, 1 VIEW AP CLINICAL [...] drain is present on the left. Cholecystectomy clip s are present. Left total hip arthroplasty and right proximal femoral fixation, partially visualized. IMPRESSION:Nonobstructive bowel gas pattern. Signed: Katheryn Dangeloeport Verified Date/Time: 09/06/2018 08:42:06 Reading Location: [facility] Reading Room W/PLT COUNT & AUTO [id number] 08:00:00* Test Item Value Reference Range Comments WHITE BLOOD CELL COUNT (BEAKER) (test ixzn=474) 10.3 K/ L 3.5-10.5 RED BLOOD CELL COUNT (BEAKER) (test omxg=649) 3.80 M/ L 3.93-5.22 HEMOGLOBIN (BEAKER) (test kxnj=960) 9.4 GM/DL 11.2-15.7 HEMATOCRIT (BEAKER) (test qocn=639) 31.0 % 34.1-44.9 MEAN CORPUSCULAR VOLUME (BEAKER) (test gpdg=372) 81.6 fL 79.4-94.8 MEAN CORPUSCULAR HEMOGLOBIN (BEAKER) (test uemc=925) 24.7 pg 25.6-32.2 MEAN CORPUSCULAR HEMOGLOBIN CONC (BEAKER) (test iawu=425) 30.3 GM/DL 32.2-35.5 RED CELL DISTRIBUTION WIDTH (BEAKER) (test luin=938) 20.1 % 11.7-14.4 PLATELET COUNT (BEAKER) (test ylml=671) 429 K/CU MM 150-450 MEAN PLATELET VOLUME (BEAKER) (test ibiy=806) 9.6 fL 9.4-12.3 NUCLEATED RED BLOOD CELLS (BEAKER) (test mpkw=347) 0 /100 WBC 0-0 (CELLAVISION MANUAL DIFF)2018-09-06 08:00:00* Test Item Value Reference Range Comments NEUTROPHILS - REL (CELLAVISION)(BEAKER) (test whor=1127) 79 % LYMPHOCYTES - REL (CELLAVISION)(BEAKER) (test tvhm=8553) 10 % MONOCYTES - REL (CELLAVISION)(BEAKER) (test gpth=9800) 4 % EOSINOPHILS - REL (CELLAVISION)(BEAKER) (test mooz=8281) 4 % BASOPHILS - REL (CELLAVISION)(BEAKER) (test xbqe=9673) 1 % ATYPICAL LYMPHOCYTES - REL (CELLAVISION)(BEAKER) (test nerr=6554) 2 % 0-0 NEUTROPHILS - ABS (CELLAVISION)(BEAKER) (test txsl=1860) 8.14 K/ul 1.56-6.13 LYMPHOCYTES - ABS (CELLAVISION)(BEAKER) (test exgz=0324) 1.03 K/ul 1.18-3.74 MONOCYTES - ABS (CELLAVISION)(BEAKER) (test jsjf=8465) 0.41 K/uL 0.24-0.36 EOSINOPHILS - ABS (CELLAVISION)(BEAKER) (test vrwf=4029) 0.41 K/uL 0.04-0.36 BASOPHILS - ABS (CELLAVISION)(BEAKER) (test crqr=2146) 0.10 K/uL 0.01-0.08 ATYPICAL LYMPHOCYTES - ABS (CELLAVISION)(BEAKER) (test wdiu=9958) 0.21 K/uL 0.00-0.00 TOTAL COUNTED (BEAKER) (test urhe=3797) 100 SMUDGE CELLS (BEAKER) (test qfyv=5692) Present GIANT PLATELETS (BEAKER) (test xtck=435) Present POLYCHROMATOPHILLIC RBCS(BEAKER) (test otuv=674) 1+ few ANISOCYTOSIS (BEAKER) (test dpei=108) 2+ moderate POIKILOCYTES (BEAKER) (test xndw=110) 1+ few PLATELET CONCENTRATION (CELLAVISION)(BEAKER) (test tflx=0284) Adequate Received comment: User comments: Slide comments: POCT-GLUCOSE [id number] 06:13:00* Test Item Value Reference Range Comments POC-GLUCOSE METER (BEAKER) (test makl=9595) 105 mg/dL 70-110 TESTED AT [facility] [address] [facility] [address] BASIC METABOLIC [id number] 05:28:00* Test Item Value Reference Range Comments SODIUM (BEAKER) (test mxbr=370) 136 meq/L 136-145 POTASSIUM (BEAKER) (test hqfq=832) 4.1 meq/L 3.5-5.1 CHLORIDE (BEAKER) (test ousx=854) 102 meq/L 98-107 CO2 (BEAKER) (test bthu=007) 27 meq/L 22-29 BLOOD UREA NITROGEN (BEAKER) (test ubtz=855) 22 mg/dL 7-21 CREATININE (BEAKER) (test chwt=893) 0.73 mg/dL 0.57-1.25 GLUCOSE RANDOM (BEAKER) (test iqzp=896) 94 mg/dL 70-105 CALCIUM (BEAKER) (test bahs=411) 7.8 mg/dL 8.4-10.2 EGFR (BEAKER) (test pijt=4110) 82 mL/min/1.73 sq m ESTIMATED GFR IS NOT ACCURATE CREATININE CLEARANCE IN PREDICTING GLOMERULAR FILTRATION RATE. ESTIMATED GFR IS NOT APPLICABLE FOR DIALYSIS PATIENTS. [id number] 05:04:00* Test Item Value Reference Range Comments PREALBUMIN (BEAKER) (test wlmo=819) 9 mg/dL 14-45 PROTEIN, [id number] 05:01:00* Test Item Value Reference Range Comments TOTAL PROTEIN (BEAKER) (test lvxi=592) 5.9 gm/dL 6.0-8.3 [id number] 05:01:00* Test Item Value Reference Range Comments PHOSPHORUS (BEAKER) (test ziuk=340) 4.5 mg/dL 2.3-4.7 [id number] 05:01:00* Test Item Value Reference Range Comments ALBUMIN (BEAKER) (test qwma=2415) 2.7 g/dL 3.5-5.0 RAD, CHEST, 1 VIEW, NON [id number] 03:33:00Reason for exam:->post opIs the patient ?->NoShould this be performed at the bedside?->YesFINAL REPORT RAD, CHEST, 1 VIEW, NON DEPT INDICATION: post op COMPARISON: September 05, 2018 FINDINGS: Portable frontal view of the chest. I MPRESSION: Support Lines: No significant change. Lungs and pleura: Small left p leural effusion, stable. Small left lung base consolidation, stable. No overt pu lmonary edema. No pneumothorax. Heart and mediastinum: Stable cardiomediastin al contour. Additional findings: Vertebroplasty changes. Signed: Viet Blackmon MDReport Verified Date/Time: 09/06/2018 03:33:50 -GLUCOSE [id number] 00:00:00* Test Item Value Reference Range Comments POC-GLUCOSE METER (BENAWAF) (test jwcu=8423) 121 mg/dL 70-110 TESTED AT [place] [id number] [facility] [address] POCT-GLUCOSE [id number] 19:00:00* Test Item Value Reference Range Comments POC-GLUCOSE METER (BEAKER) (test wido=3544) 96 mg/dL 70-110 TESTED AT [address] [address] POCT-GLUCOSE [id number] 17:34:00* Test Item Value Reference Range Comments POC-GLUCOSE METER (BEAKER) (test seuw=9196) 93 mg/dL 70-110 TESTED AT [address] [address] CBC W/PLT COUNT & AUTO [id number] 07:31:00* Test Item Value Reference Range Comments WHITE BLOOD CELL COUNT (BEAKER) (test wejm=969) 11.8 K/ L 3.5-10.5 RED BLOOD CELL COUNT (BEAKER) (test ilcd=004) 3.66 M/ L 3.93-5.22 HEMOGLOBIN (BEAKER) (test bhna=599) 9.3 GM/DL 11.2-15.7 HEMATOCRIT (BEAKER) (test pdpa=715) 29.5 % 34.1-44.9 MEAN CORPUSCULAR VOLUME (BEAKER) (test kfdn=591) 80.6 fL 79.4-94.8 MEAN CORPUSCULAR HEMOGLOBIN (BEAKER) (test akwq=528) 25.4 pg 25.6-32.2 MEAN CORPUSCULAR HEMOGLOBIN CONC (BEAKER) (test sjed=623) 31.5 GM/DL 32.2-35.5 RED CELL DISTRIBUTION WIDTH (BEAKER) (test fkor=517) 20.1 % 11.7-14.4 PLATELET COUNT (BEAKER) (test cvoh=277) 339 K/CU MM 150-450 MEAN PLATELET VOLUME (BEAKER) (test vtgo=410) 8.8 fL 9.4-12.3 NUCLEATED RED BLOOD CELLS (BEAKER) (test plqu=329) 0 /100 WBC 0-0 (CELLAVISION MANUAL DIFF)2018-09-05 07:31:00* Test Item Value Reference Range Comments NEUTROPHILS - REL (CELLAVISION)(BEAKER) (test zlim=3758) 87 % LYMPHOCYTES - REL (CELLAVISION)(BEAKER) (test bvfv=2791) 4 % MONOCYTES - REL (CELLAVISION)(BEAKER) (test edxe=8652) 1 % EOSINOPHILS - REL (CELLAVISION)(BEAKER) (test pphz=0718) 4 % BASOPHILS - REL (CELLAVISION)(BEAKER) (test tmcz=4532) 1 % BANDS - REL (CELLAVISION)(BEAKER) (test ghlk=1509) 3 % 0-10 NEUTROPHILS - ABS (CELLAVISION)(BEAKER) (test hyww=4278) 10.27 K/ul 1.56-6.13 LYMPHOCYTES - ABS (CELLAVISION)(BEAKER) (test wnmd=2330) 0.47 K/ul 1.18-3.74 MONOCYTES - ABS (CELLAVISION)(BEAKER) (test ucbk=2519) 0.12 K/uL 0.24-0.36 EOSINOPHILS - ABS (CELLAVISION)(BEAKER) (test prgc=5155) 0.47 K/uL 0.04-0.36 BASOPHILS - ABS (CELLAVISION)(BEAKER) (test idrc=1584) 0.12 K/uL 0.01-0.08 BANDS - ABS (CELLAVISION)(BEAKER) (test ufpj=3532) 0.35 K/uL 0.00-0.80 TOTAL COUNTED (BEAKER) (test axgp=1622) 100 RBC MORPHOLOGY (BEAKER) (test mgbq=658) Normal WBC MORPHOLOGY (BEAKER) (test lbhh=110) Normal PLT MORPHOLOGY (BEAKER) (test tpse=972) Normal ARTIFACT (CELLAVISION)(BEAKER) (test codx=1220) Present PLATELET CONCENTRATION (CELLAVISION)(BEAKER) (test kfvx=1310) Adequate Received comment: User comments: Slide comments: POCT-GLUCOSE [id number] 06:00:00* Test Item Value Reference Range Comments POC-GLUCOSE METER (BEAKER) (test kuta=2407) 124 mg/dL 70-110 TESTED AT [facility] [address] [facility] [address] [id number] 05:08:00* Test Item Value Reference Range Comments PHOSPHORUS (BEAKER) (test oqam=207) 4.8 mg/dL 2.3-4.7 BASIC METABOLIC [id number] 05:08:00* Test Item Value Reference Range Comments SODIUM (BEAKER) (test zypk=378) 135 meq/L 136-145 POTASSIUM (BEAKER) (test rupe=366) 3.9 meq/L 3.5-5.1 CHLORIDE (BEAKER) (test sjij=801) 99 meq/L 98-107 CO2 (BEAKER) (test shbm=999) 26 meq/L 22-29 BLOOD UREA NITROGEN (BEAKER) (test skzt=692) 22 mg/dL 7-21 CREATININE (BEAKER) (test bsfn=666) 0.70 mg/dL 0.57-1.25 GLUCOSE RANDOM (BEAKER) (test hlgb=044) 119 mg/dL 70-105 CALCIUM (BEAKER) (test cnyt=195) 8.1 mg/dL 8.4-10.2 EGFR (BEAKER) (test zgxh=1716) 86 mL/min/1.73 sq m ESTIMATED GFR IS NOT ACCURATE CREATININE CLEARANCE IN PREDICTING GLOMERULAR FILTRATION RATE. ESTIMATED GFR IS NOT APPLICABLE FOR DIALYSIS PATIENTS. RAD, CHEST, 1 VIEW, NON [id number] 04:54:00Reason for exam:->post opIs the patient ?->NoShould this be performed at the bedside?->YesFINAL REPORT RAD, CHEST, 1 VIEW, NON DEPT INDICATION: post op COMPARISON: September 04, 2018 FINDINGS: Portable frontal view of the chest. I MPRESSION: Support Lines: No significant change. Lungs and pleura: Left lower l obe airspace disease and small pleural effusion, similar to prior exam. No pneum othorax.Heart and mediastinum: Stable cardiomediastinal contour. Additional find ings: None. Signed: Viet Blackmon MDReport Verified Date/Time: 09/05/2018 04: 54:36 IUM, [id number] 04:50:00* Test Item Value Reference Range Comments CALCIUM IONIZED (BEAKER) (test ubev=486) 1.09 mmol/L 1.12-1.27 PH, BLOOD (BEAKER) (test bhqg=3648) 7.42 POCT-GLUCOSE [id number] 23:49:00* Test Item Value Reference Range Comments POC-GLUCOSE METER (BEAKER) (test pbsv=4851) 145 mg/dL 70-110 TESTED AT [facility] [address] [facility] [address] POCT-GLUCOSE [id number] 17:50:00* Test Item Value Reference Range Comments POC-GLUCOSE METER (BEAKER) (test gtgl=8585) 140 mg/dL 70-110 TESTED AT [address] [address] POCT-GLUCOSE [id number] 12:11:00* Test Item Value Reference Range Comments POC-GLUCOSE METER (BEAKER) (test njnc=1671) 130 mg/dL 70-110 TESTED AT [address] [address] RAD, CHEST, 1 VIEW, NON [id number] 07:01:00Reason for exam:->post opIs the patient ?->NoShould this be performed at the bedside?->YesFINAL REPORT Chest one view. Clinical history: post op Comparison: Chest radiograph 09/03/2018. Technique: A single frontal view of the chest was obtained. Findings:There are bilateral IJ central venous catheter is unchanged in position.The cardiomediastinal contours are stable. There is a small left pleural effusion not significantly changed. There is airspace opacity in the left lung base which may represent pneumonia and/or atelectasis. There is no pneumothorax. Signed: Ivelisse Koehler MDReport Verified Date/Time: 09/04/2018 07: 01:06 -GLUCOSE [id number] 06:24:00* Test Item Value Reference Range Comments POC-GLUCOSE METER (BEAKER) (test fksn=6640) 169 mg/dL 70-110 TESTED AT [place] [id number] [facility] [address] [id number] 05:36:00* Test Item Value Reference Range Comments PHOSPHORUS (BEAKER) (test pseu=146) 4.8 mg/dL 2.3-4.7 Specimen slightly hemolyzed BASIC METABOLIC [id number] 05:36:00* Test Item Value Reference Range Comments SODIUM (BEAKER) (test zopo=485) 139 meq/L 136-145 POTASSIUM (BEAKER) (test dvwy=770) 4.0 meq/L 3.5-5.1 Specimen slightly hemolyzed CHLORIDE (BEAKER) (test mrxw=290) 103 meq/L 98-107 CO2 (BEAKER) (test fztm=114) 29 meq/L 22-29 BLOOD UREA NITROGEN (BEAKER) (test kddk=165) 19 mg/dL 7-21 CREATININE (BEAKER) (test fiyl=202) 0.69 mg/dL 0.57-1.25 Specimen slightly hemolyzed GLUCOSE RANDOM (BEAKER) (test fkgq=711) 110 mg/dL 70-105 CALCIUM (BEAKER) (test hhqt=198) 8.6 mg/dL 8.4-10.2 EGFR (BEAKER) (test tbiy=0183) 87 mL/min/1.73 sq m ESTIMATED GFR IS NOT ACCURATE CREATININE CLEARANCE IN PREDICTING GLOMERULAR FILTRATION RATE. ESTIMATED GFR IS NOT APPLICABLE FOR DIALYSIS PATIENTS. CBC W/PLT COUNT & AUTO [id number] 05:11:00* Test Item Value Reference Range Comments WHITE BLOOD CELL COUNT (BEAKER) (test gznh=003) 5.9 K/ L 3.5-10.5 RED BLOOD CELL COUNT (BEAKER) (test mskn=830) 3.52 M/ L 3.93-5.22 HEMOGLOBIN (BEAKER) (test rtqn=391) 8.8 GM/DL 11.2-15.7 HEMATOCRIT (BEAKER) (test gbqs=721) 28.2 % 34.1-44.9 MEAN CORPUSCULAR VOLUME (BEAKER) (test mzwj=861) 80.1 fL 79.4-94.8 MEAN CORPUSCULAR HEMOGLOBIN (BEAKER) (test vfql=538) 25.0 pg 25.6-32.2 MEAN CORPUSCULAR HEMOGLOBIN CONC (BEAKER) (test elvc=463) 31.2 GM/DL 32.2-35.5 RED CELL DISTRIBUTION WIDTH (BEAKER) (test skbk=513) 19.9 % 11.7-14.4 PLATELET COUNT (BEAKER) (test piqn=109) 313 K/CU MM 150-450 MEAN PLATELET VOLUME (BEAKER) (test sftw=475) 8.9 fL 9.4-12.3 NUCLEATED RED BLOOD CELLS (BEAKER) (test mclq=524) 0 /100 WBC 0-0 NEUTROPHILS RELATIVE PERCENT (BEAKER) (test shls=635) 75 % LYMPHOCYTES RELATIVE PERCENT (BEAKER) (test tmkp=398) 12 % MONOCYTES RELATIVE PERCENT (BEAKER) (test vhtl=726) 7 % EOSINOPHILS RELATIVE PERCENT (BEAKER) (test kkrn=687) 5 % BASOPHILS RELATIVE PERCENT (BEAKER) (test eitr=651) 0 % NEUTROPHILS ABSOLUTE COUNT (BEAKER) (test vtjy=915) 4.38 K/ L 1.56-6.13 LYMPHOCYTES ABSOLUTE COUNT (BEAKER) (test pela=466) 0.67 K/ L 1.18-3.74 MONOCYTES ABSOLUTE COUNT (BEAKER) (test kdlb=793) 0.42 K/ L 0.24-0.36 EOSINOPHILS ABSOLUTE COUNT (BEAKER) (test mdgr=486) 0.29 K/ L 0.04-0.36 BASOPHILS ABSOLUTE COUNT (BEAKER) (test hvif=384) 0.02 K/ L 0.01-0.08 IMMATURE GRANULOCYTES-RELATIVE PERCENT (BEAKER) (test tfkz=4383) 1 % 0-1 CALCIUM, [id number] 05:09:00* Test Item Value Reference Range Comments CALCIUM IONIZED (BEAKER) (test eeew=464) 1.14 mmol/L 1.12-1.27 PH, BLOOD (BEAKER) (test apen=8456) 7.45 POCT-GLUCOSE [id number] 23:20:00* Test Item Value Reference Range Comments POC-GLUCOSE METER (BEAKER) (test zlzd=1369) 125 mg/dL 70-110 TESTED AT [address] [address] POCT-GLUCOSE [id number] 18:48:00* Test Item Value Reference Range Comments POC-GLUCOSE METER (BEAKER) (test nztk=5298) 131 mg/dL 70-110 TESTED AT [address] [address] POCT-GLUCOSE [id number] 11:49:00* Test Item Value Reference Range Comments POC-GLUCOSE METER (BEAKER) (test hrbn=1506) 113 mg/dL 70-110 TESTED AT [address] [address] RAD, CHEST, 1 VIEW, NON [id number] 08:11:00Reason for exam:->post opIs the patient ?->NoShould this be performed at the bedside?->YesFINAL REPORT RAD, CHEST, 1 VIEW, NON DEPT CLINICAL INDICATION: post op COMPARISON: Radiograph 09/02/2018 TECHNIQUE: AP view of the chest FINDINGS: Right IJ central venous catheter and left-sided Mediport are unchanged. Persistent small left pleural effusion. Similar perihilar opacities. No new focal consolidation or pneumothorax. Cardiomediastinal silhouette, daniela, and pulmonary vasculature are unchanged. IMPRESSION:No significant interval change. Signed: Katheryn Spanglereport Verified Date/Time: 09/03/2018 08:11:41 Reading Locat ion: [facility] Reading Room [id number] 06:17:00* Test Item Value Reference Range Comments PHOSPHORUS (BEAKER) (test nuuj=599) 3.5 mg/dL 2.3-4.7 BASIC METABOLIC [id number] 06:17:00* Test Item Value Reference Range Comments SODIUM (BEAKER) (test uqzr=821) 140 meq/L 136-145 POTASSIUM (BEAKER) (test aspm=690) 3.6 meq/L 3.5-5.1 CHLORIDE (BEAKER) (test wona=849) 106 meq/L 98-107 CO2 (BEAKER) (test dvlq=638) 26 meq/L 22-29 BLOOD UREA NITROGEN (BEAKER) (test gvan=619) 16 mg/dL 7-21 CREATININE (BEAKER) (test pkba=324) 0.66 mg/dL 0.57-1.25 GLUCOSE RANDOM (BEAKER) (test tyri=536) 108 mg/dL 70-105 CALCIUM (BEAKER) (test tqyk=230) 8.3 mg/dL 8.4-10.2 EGFR (BEAKER) (test qaxj=1519) 92 mL/min/1.73 sq m ESTIMATED GFR IS NOT ACCURATE CREATININE CLEARANCE IN PREDICTING GLOMERULAR FILTRATION RATE. ESTIMATED GFR IS NOT APPLICABLE FOR DIALYSIS PATIENTS. CALCIUM, [id number] 05:21:00* Test Item Value Reference Range Comments CALCIUM IONIZED (BEAKER) (test xrsv=407) 1.05 mmol/L 1.12-1.27 PH, BLOOD (BEAKER) (test sccv=0235) 7.43 CBC W/PLT COUNT & AUTO [id number] 05:15:00* Test Item Value Reference Range Comments WHITE BLOOD CELL COUNT (BEAKER) (test syhk=196) 5.7 K/ L 3.5-10.5 RED BLOOD CELL COUNT (BEAKER) (test knuc=459) 3.29 M/ L 3.93-5.22 HEMOGLOBIN (BEAKER) (test lfpv=569) 8.2 GM/DL 11.2-15.7 HEMATOCRIT (BEAKER) (test cwlg=270) 26.4 % 34.1-44.9 MEAN CORPUSCULAR VOLUME (BEAKER) (test vhyw=176) 80.2 fL 79.4-94.8 MEAN CORPUSCULAR HEMOGLOBIN (BEAKER) (test dwdr=523) 24.9 pg 25.6-32.2 MEAN CORPUSCULAR HEMOGLOBIN CONC (BEAKER) (test bvmv=073) 31.1 GM/DL 32.2-35.5 RED CELL DISTRIBUTION WIDTH (BEAKER) (test chau=163) 19.3 % 11.7-14.4 PLATELET COUNT (BEAKER) (test uqgd=809) 265 K/CU MM 150-450 MEAN PLATELET VOLUME (BEAKER) (test qiin=159) 8.8 fL 9.4-12.3 NUCLEATED RED BLOOD CELLS (BEAKER) (test hwjg=638) 0 /100 WBC 0-0 NEUTROPHILS RELATIVE PERCENT (BEAKER) (test ixni=421) 75 % LYMPHOCYTES RELATIVE PERCENT (BEAKER) (test igov=540) 12 % MONOCYTES RELATIVE PERCENT (BEAKER) (test ggjc=693) 6 % EOSINOPHILS RELATIVE PERCENT (BEAKER) (test ottn=426) 6 % BASOPHILS RELATIVE PERCENT (BEAKER) (test shnu=223) 0 % NEUTROPHILS ABSOLUTE COUNT (BEAKER) (test jrky=745) 4.21 K/ L 1.56-6.13 LYMPHOCYTES ABSOLUTE COUNT (BEAKER) (test ofvp=226) 0.68 K/ L 1.18-3.74 MONOCYTES ABSOLUTE COUNT (BEAKER) (test beve=018) 0.35 K/ L 0.24-0.36 EOSINOPHILS ABSOLUTE COUNT (BEAKER) (test kxlg=237) 0.36 K/ L 0.04-0.36 BASOPHILS ABSOLUTE COUNT (BEAKER) (test tzgm=634) 0.02 K/ L 0.01-0.08 IMMATURE GRANULOCYTES-RELATIVE PERCENT (BEAKER) (test wzgf=3789) 1 % 0-1 POCT-GLUCOSE [id number] 23:48:00* Test Item Value Reference Range Comments POC-GLUCOSE METER (BEAKER) (test tvvz=9888) 124 mg/dL 70-110 TESTED AT [facility] [address] [facility] [address] POCT-GLUCOSE [id number] 12:21:00* Test Item Value Reference Range Comments POC-GLUCOSE METER (BEAKER) (test eptq=5845) 113 mg/dL 70-110 TESTED AT [facility] [address] [facility] [address] RAD, CHEST, 1 VIEW, NON [id number] 07:36:00Reason for exam:->post opIs the patient ?->NoShould this be performed at the bedside?->YesFINAL REPORT RAD, CHEST, 1 VIEW, NON DEPT CLINICAL INDICATION: post op COMPARISON: Radiograph 09/01/2018 TECHNIQUE: AP view of the chest FINDINGS: Unchanged right IJ central venous catheter and left-sided Mediport. Persistent left retrocardiac opacity and blunting of the left costophrenic angle. More confluent bilateral perihilar opacities may reflect increasing consolidation or atelectasis due to lower lung volumes. Cardiomediastinal silhouette, daniela, and pulmonary vasculature are unchanged. IMPRESSION:More confluent bilateral robert hilar opacities may reflect increasing consolidation and/or atelectasis. Signed: Katheryn Spangler Verified Date/Time: 09/02/2018 07:36:39 Reading Locati on: [facility] Reading Room [id number] 07:07:00* Test Item Value Reference Range Comments PHOSPHORUS (BEAKER) (test glsu=898) 2.2 mg/dL 2.3-4.7 [id number] 07:07:00* Test Item Value Reference Range Comments MAGNESIUM (BEAKER) (test pilq=468) 2.1 mg/dL 1.6-2.6 BASIC METABOLIC [id number] 07:07:00* Test Item Value Reference Range Comments SODIUM (BEAKER) (test btbw=419) 137 meq/L 136-145 POTASSIUM (BEAKER) (test nijn=336) 3.8 meq/L 3.5-5.1 CHLORIDE (BEAKER) (test vnji=001) 106 meq/L 98-107 CO2 (BEAKER) (test eesu=542) 24 meq/L 22-29 BLOOD UREA NITROGEN (BEAKER) (test okkn=965) 16 mg/dL 7-21 CREATININE (BEAKER) (test time=076) 0.66 mg/dL 0.57-1.25 GLUCOSE RANDOM (BEAKER) (test qrwn=086) 95 mg/dL 70-105 CALCIUM (BEAKER) (test yfme=837) 8.4 mg/dL 8.4-10.2 EGFR (BEAKER) (test ceoj=8097) 92 mL/min/1.73 sq m ESTIMATED GFR IS NOT ACCURATE CREATININE CLEARANCE IN PREDICTING GLOMERULAR FILTRATION RATE. ESTIMATED GFR IS NOT APPLICABLE FOR DIALYSIS PATIENTS. POCT-GLUCOSE [id number] 06:08:00* Test Item Value Reference Range Comments POC-GLUCOSE METER (BEAKER) (test kjyb=1761) 104 mg/dL 70-110 TESTED AT [facility] [address] [facility] [address] CALCIUM, [id number] 05:07:00* Test Item Value Reference Range Comments CALCIUM IONIZED (BEAKER) (test wucx=856) 0.97 mmol/L 1.12-1.27 PH, BLOOD (BEAKER) (test twva=4286) 7.49 CBC W/PLT COUNT & AUTO [id number] 04:58:00* Test Item Value Reference Range Comments WHITE BLOOD CELL COUNT (BEAKER) (test nsiv=064) 9.0 K/ L 3.5-10.5 RED BLOOD CELL COUNT (BEAKER) (test hhxa=276) 3.48 M/ L 3.93-5.22 HEMOGLOBIN (BEAKER) (test imft=536) 8.7 GM/DL 11.2-15.7 HEMATOCRIT (BEAKER) (test zizm=002) 28.0 % 34.1-44.9 MEAN CORPUSCULAR VOLUME (BEAKER) (test dycw=212) 80.5 fL 79.4-94.8 MEAN CORPUSCULAR HEMOGLOBIN (BEAKER) (test toro=227) 25.0 pg 25.6-32.2 MEAN CORPUSCULAR HEMOGLOBIN CONC (BEAKER) (test ipja=737) 31.1 GM/DL 32.2-35.5 RED CELL DISTRIBUTION WIDTH (BEAKER) (test cmbb=755) 18.6 % 11.7-14.4 PLATELET COUNT (BEAKER) (test xjts=769) 258 K/CU MM 150-450 MEAN PLATELET VOLUME (BEAKER) (test ewot=683) 8.8 fL 9.4-12.3 NUCLEATED RED BLOOD CELLS (BEAKER) (test yhrl=472) 0 /100 WBC 0-0 NEUTROPHILS RELATIVE PERCENT (BEAKER) (test xkux=739) 80 % LYMPHOCYTES RELATIVE PERCENT (BEAKER) (test goml=824) 12 % MONOCYTES RELATIVE PERCENT (BEAKER) (test mufw=092) 3 % EOSINOPHILS RELATIVE PERCENT (BEAKER) (test atma=562) 5 % BASOPHILS RELATIVE PERCENT (BEAKER) (test tqyg=878) 0 % NEUTROPHILS ABSOLUTE COUNT (BEAKER) (test hsio=985) 7.13 K/ L 1.56-6.13 LYMPHOCYTES ABSOLUTE COUNT (BEAKER) (test ekqy=005) 1.08 K/ L 1.18-3.74 MONOCYTES ABSOLUTE COUNT (BEAKER) (test fkqy=003) 0.29 K/ L 0.24-0.36 EOSINOPHILS ABSOLUTE COUNT (BEAKER) (test pqvt=184) 0.40 K/ L 0.04-0.36 BASOPHILS ABSOLUTE COUNT (BEAKER) (test oqad=815) 0.02 K/ L 0.01-0.08 IMMATURE GRANULOCYTES-RELATIVE PERCENT (BEAKER) (test pasv=9874) 1 % 0-1 POCT-GLUCOSE [id number] 23:33:00* Test Item Value Reference Range Comments POC-GLUCOSE METER (BEAKER) (test elnl=3776) 114 mg/dL 70-110 TESTED AT [facility] [address] [facility] [address] POCT-GLUCOSE [id number] 18:49:00* Test Item Value Reference Range Comments POC-GLUCOSE METER (BEAKER) (test qwum=9460) 117 mg/dL 70-110 TESTED AT [address] [address] HEMOGLOBIN AND [id number] 14:51:00* Test Item Value Reference Range Comments HEMOGLOBIN (BEAKER) (test ynwm=684) 8.9 GM/DL 11.2-15.7 HEMATOCRIT (BEAKER) (test ozkl=791) 28.4 % 34.1-44.9 Collect when done transfusingPOCT-GLUCOSE [id number] 13:04:00* Test Item Value Reference Range Comments POC-GLUCOSE METER (BEAKER) (test rwuo=0352) 105 mg/dL 70-110 TESTED AT [address] [address] RAD, CHEST, 1 VIEW, NON [id number] 09:02:00Reason for exam:->post opIs the patient ?->NoShould this be performed at the bedside?->YesFINAL REPORT RAD, CHEST, 1 VIEW, NON DEPT CLINICAL INDICATION: post op COMPARISON: Radiograph 08/31/2018 TECHNIQUE: AP view of the chest FINDINGS: Unchanged right IJ central venous catheter and left-sided Mediport. No pneumothorax. There is developing left retrocardiac opacity with blunting of the left costophrenic angle which may reflect any combination of consolidation, eff usion, or atelectasis. Cardiomediastinal silhouette, daniela, and pulmonary vascula ture are unchanged. IMPRESSION:No pneumothorax.Developing left retrocardiac opac ity with blunting of the costophrenic angle may reflect any combination of conso lidation, effusion, or atelectasis. Signed: Katheryn Spangler Verified Maurizio e/Time: 09/01/2018 09:02:00 Reading Location: [facility] Reading R oom A M POCT-GLUCOSE [id number] 06:20:00* Test Item Value Reference Range Comments POC-GLUCOSE METER (BEAKER) (test myvn=8257) 107 mg/dL 70-110 TESTED AT [place] [id number] [facility] [address] COMPREHENSIVE METABOLIC [id number] 04:14:00* Test Item Value Reference Range Comments TOTAL PROTEIN (BEAKER) (test mjzu=772) 4.6 gm/dL 6.0-8.3 ALBUMIN (BEAKER) (test xvni=7859) 2.3 g/dL 3.5-5.0 ALKALINE PHOSPHATASE (BEAKER) (test hava=564) 93 U/L 40-150 BILIRUBIN TOTAL (BEAKER) (test rgdu=763) 0.2 mg/dL 0.2-1.2 SODIUM (BEAKER) (test dhff=748) 137 meq/L 136-145 POTASSIUM (BEAKER) (test sfxj=462) 3.6 meq/L 3.5-5.1 CHLORIDE (BEAKER) (test aosf=308) 110 meq/L 98-107 CO2 (BEAKER) (test potp=323) 25 meq/L 22-29 BLOOD UREA NITROGEN (BEAKER) (test urmn=071) 17 mg/dL 7-21 CREATININE (BEAKER) (test kwwi=332) 0.69 mg/dL 0.57-1.25 GLUCOSE RANDOM (BEAKER) (test inds=688) 103 mg/dL 70-105 CALCIUM (BEAKER) (test bdui=919) 7.8 mg/dL 8.4-10.2 AST (SGOT) (BEAKER) (test ycjk=455) 34 U/L 5-34 ALT (SGPT) (BEAKER) (test stxd=974) 25 U/L 6-55 EGFR (BEAKER) (test kcnk=3143) 87 mL/min/1.73 sq m ESTIMATED GFR IS NOT ACCURATE CREATININE CLEARANCE IN PREDICTING GLOMERULAR FILTRATION RATE. ESTIMATED GFR IS NOT APPLICABLE FOR DIALYSIS PATIENTS. [id number] 04:12:00* Test Item Value Reference Range Comments TRIGLYCERIDES (BEAKER) (test demf=225) 89 mg/dL TRIGLYCERIDE REFERENCE RANGELow Risk <150Borderline Risk 150-199High Risk 200- 499Very High Risk >=[id number] 04:12:00* Test Item Value Reference Range Comments MAGNESIUM (BEAKER) (test fspf=146) 2.3 mg/dL 1.6-2.6 [id number] 04:12:00* Test Item Value Reference Range Comments PHOSPHORUS (BEAKER) (test glnf=194) 1.9 mg/dL 2.3-4.7 [id number] 04:04:00* Test Item Value Reference Range Comments PREALBUMIN (BEAKER) (test ddey=248) 6 mg/dL 14-45 CBC W/PLT COUNT & AUTO [id number] 03:44:00* Test Item Value Reference Range Comments WHITE BLOOD CELL COUNT (BEAKER) (test gnnd=501) 6.8 K/ L 3.5-10.5 RED BLOOD CELL COUNT (BEAKER) (test jobq=061) 2.62 M/ L 3.93-5.22 HEMOGLOBIN (BEAKER) (test gcfm=479) 6.1 GM/DL 11.2-15.7 HEMATOCRIT (BEAKER) (test lqsh=201) 20.9 % 34.1-44.9 MEAN CORPUSCULAR VOLUME (BEAKER) (test tuxq=587) 79.8 fL 79.4-94.8 MEAN CORPUSCULAR HEMOGLOBIN (BEAKER) (test mvws=633) 23.3 pg 25.6-32.2 MEAN CORPUSCULAR HEMOGLOBIN CONC (BEAKER) (test nexh=979) 29.2 GM/DL 32.2-35.5 RED CELL DISTRIBUTION WIDTH (BEAKER) (test orkr=469) 18.4 % 11.7-14.4 PLATELET COUNT (BEAKER) (test aijd=201) 224 K/CU MM 150-450 MEAN PLATELET VOLUME (BEAKER) (test ehce=099) 8.7 fL 9.4-12.3 NUCLEATED RED BLOOD CELLS (BEAKER) (test oukl=086) 0 /100 WBC 0-0 NEUTROPHILS RELATIVE PERCENT (BEAKER) (test zsic=144) 78 % LYMPHOCYTES RELATIVE PERCENT (BEAKER) (test pdlu=874) 13 % MONOCYTES RELATIVE PERCENT (BEAKER) (test xvhw=672) 4 % EOSINOPHILS RELATIVE PERCENT (BEAKER) (test qulc=797) 4 % BASOPHILS RELATIVE PERCENT (BEAKER) (test lagj=226) 0 % NEUTROPHILS ABSOLUTE COUNT (BEAKER) (test vplw=127) 5.27 K/ L 1.56-6.13 LYMPHOCYTES ABSOLUTE COUNT (BEAKER) (test fbsw=067) 0.86 K/ L 1.18-3.74 MONOCYTES ABSOLUTE COUNT (BEAKER) (test wwzn=045) 0.29 K/ L 0.24-0.36 EOSINOPHILS ABSOLUTE COUNT (BEAKER) (test ikcx=227) 0.27 K/ L 0.04-0.36 BASOPHILS ABSOLUTE COUNT (BEAKER) (test sktm=253) 0.03 K/ L 0.01-0.08 IMMATURE GRANULOCYTES-RELATIVE PERCENT (BEAKER) (test gnuc=5473) 0 % 0-1 CALCIUM, [id number] 03:36:00* Test Item Value Reference Range Comments CALCIUM IONIZED (BEAKER) (test sxgy=434) 1.14 mmol/L 1.12-1.27 PH, BLOOD (BEAKER) (test uvbu=7480) 7.41 POCT-GLUCOSE [id number] 23:32:00* Test Item Value Reference Range Comments POC-GLUCOSE METER (BEAKER) (test yddn=9282) 97 mg/dL 70-110 TESTED AT [facility] [address] [facility] [address] POCT-GLUCOSE [id number] 18:06:00* Test Item Value Reference Range Comments POC-GLUCOSE METER (BEAKER) (test jmlr=8960) 112 mg/dL 70-110 TESTED AT [address] [address] RAD, CHEST, 1 VIEW, NON [id number] 15:28:00Reason for exam:->chest tube removalShould this be performed at the bedside?->YesFINAL REPORT RAD, CHEST, 1 VIEW, NON DEPT CLINICAL INDICATION: chest tube removal COMPARISON: Radiograph 08/31/2018 TECHNIQUE: AP view of the chest FINDINGS: Interval removal of left-sided chest tube. Right IJ central venous catheter and left-sided Mediport are unchanged. No pneumothorax. Persistent blunting of the costophrenic angles. No new focal consolidation. Cardiomediastinal silhouette, daniela, and pulmonary vasculature are unchanged. IMPRESSION:No pneumothorax following removal of left-sided chest tube. Signed: Katheryn Spangler Verified Date/Time: 08/31/2018 15:28:06 Reading Location: [facility] C0[facility] Consult Reading Room Electronically signed by: KATHERYN SPANGLER MD on 0 08/31/2018 03:28 PM POCT-GLUCOSE [id number] 12:30:00* Test Item Value Reference Range Comments POC-GLUCOSE METER (BEAKER) (test dsod=4376) 125 mg/dL 70-110 TESTED AT [facility] [address] [facility] [address] RAD, CHEST, 1 VIEW, NON [id number] 08:16:00Reason for exam:->post opIs the patient ?->NoShould this be performed at the bedside?->YesFINAL REPORT RAD, CHEST, 1 VIEW, NON DEPT CLINICAL INDICATION: post op COMPARISON: Radiograph 08/30/2018 TECHNIQUE: AP view of the chest FINDINGS: Left sided Mediport, right IJ venous catheter, and left-sided chest tube are unchanged. There is interval development of slight blunting of the costophrenic angles, left greater than right. No focal consolidation or pneumothorax. C ardiomediastinal silhouette, daniela, and pulmonary vasculature are unchanged. IMPR ESSION:Interval slight blunting of the costophrenic angles may reflect atelectas is or trace effusions. Signed: Katheryn Spangler Verified Date/Time: 08/10 08:16:14 Reading Location: [facility] Radiology Reading Room [facility] signed by: KATHERYN SPANGLER MD on 08/31/2018 08:16 AM CBC W/PLT COUNT & AUTO [id number] 07:03:00* Test Item Value Reference Range Comments WHITE BLOOD CELL COUNT (BEAKER) (test hyoh=654) 9.6 K/ L 3.5-10.5 RED BLOOD CELL COUNT (BEAKER) (test uewp=977) 3.26 M/ L 3.93-5.22 HEMOGLOBIN (BEAKER) (test ufyq=603) 7.7 GM/DL 11.2-15.7 HEMATOCRIT (BEAKER) (test xdxd=551) 25.8 % 34.1-44.9 MEAN CORPUSCULAR VOLUME (BEAKER) (test udkg=864) 79.1 fL 79.4-94.8 MEAN CORPUSCULAR HEMOGLOBIN (BEAKER) (test acth=478) 23.6 pg 25.6-32.2 MEAN CORPUSCULAR HEMOGLOBIN CONC (BEAKER) (test mfjp=592) 29.8 GM/DL 32.2-35.5 RED CELL DISTRIBUTION WIDTH (BEAKER) (test dhpm=206) 17.9 % 11.7-14.4 PLATELET COUNT (BEAKER) (test vflk=982) 264 K/CU MM 150-450 MEAN PLATELET VOLUME (BEAKER) (test huqt=544) 9.1 fL 9.4-12.3 NUCLEATED RED BLOOD CELLS (BEAKER) (test heap=103) 0 /100 WBC 0-0 (CELLAVISION MANUAL DIFF)2018-08-31 07:03:00* Test Item Value Reference Range Comments NEUTROPHILS - REL (CELLAVISION)(BEAKER) (test cdur=3924) 81 % LYMPHOCYTES - REL (CELLAVISION)(BEAKER) (test dzbo=2456) 3 % MONOCYTES - REL (CELLAVISION)(BEAKER) (test tlsy=3461) 1 % BANDS - REL (CELLAVISION)(BEAKER) (test qjwn=9520) 15 % 0-10 NEUTROPHILS - ABS (CELLAVISION)(BEAKER) (test ejrg=1978) 7.78 K/ul 1.56-6.13 LYMPHOCYTES - ABS (CELLAVISION)(BEAKER) (test kuhi=0272) 0.29 K/ul 1.18-3.74 MONOCYTES - ABS (CELLAVISION)(BEAKER) (test qymm=4646) 0.10 K/uL 0.24-0.36 BANDS - ABS (CELLAVISION)(BEAKER) (test gemt=6093) 1.44 K/uL 0.00-0.80 TOTAL COUNTED (BEAKER) (test wrje=2950) 100 WBC MORPHOLOGY (BEAKER) (test grpg=696) Normal PLT MORPHOLOGY (BEAKER) (test pgrp=223) Normal POLYCHROMATOPHILLIC RBCS(BEAKER) (test fcbz=180) 1+ few HYPOCHROMIA (BEAKER) (test ggud=530) 1+ few ARTIFACT (CELLAVISION)(BEAKER) (test zknk=4186) Present PLATELET CONCENTRATION (CELLAVISION)(BEAKER) (test xiwx=1064) Adequate Received comment: User comments: Slide comments: POCT-GLUCOSE [id number] 06:43:00* Test Item Value Reference Range Comments POC-GLUCOSE METER (BEAKER) (test zzex=0194) 124 mg/dL 70-110 TESTED AT [place] [id number] [facility] [address] BASIC METABOLIC [id number] 04:25:00* Test Item Value Reference Range Comments SODIUM (BEAKER) (test zztu=586) 138 meq/L 136-145 POTASSIUM (BEAKER) (test bdan=870) 4.0 meq/L 3.5-5.1 CHLORIDE (BEAKER) (test vuaa=229) 111 meq/L 98-107 CO2 (BEAKER) (test fcgg=754) 22 meq/L 22-29 BLOOD UREA NITROGEN (BEAKER) (test iqgg=364) 13 mg/dL 7-21 CREATININE (BEAKER) (test oiwg=258) 0.77 mg/dL 0.57-1.25 GLUCOSE RANDOM (BEAKER) (test xyek=290) 132 mg/dL 70-105 CALCIUM (BEAKER) (test elim=147) 7.9 mg/dL 8.4-10.2 EGFR (BEAKER) (test chqj=5350) 77 mL/min/1.73 sq m ESTIMATED GFR IS NOT ACCURATE CREATININE CLEARANCE IN PREDICTING GLOMERULAR FILTRATION RATE. ESTIMATED GFR IS NOT APPLICABLE FOR DIALYSIS PATIENTS. [id number] 04:04:00* Test Item Value Reference Range Comments MAGNESIUM (BEAKER) (test wfpq=262) 1.8 mg/dL 1.6-2.6 POCT-GLUCOSE [id number] 00:22:00* Test Item Value Reference Range Comments POC-GLUCOSE METER (BEAKER) (test rbkm=7518) 166 mg/dL 70-110 TESTED AT [facility] [address] [facility] [address] RAD, CHEST, 1 VIEW, NON [id number] 21:55:00Reason for exam:->post opIs the patient ?->NoShould this be performed at the bedside?->YesFINAL REPORT RAD, CHEST, 1 VIEW, NON DEPT INDICATION: post op COMPARISON: Prior day's exam FINDINGS: Portable frontal view of the chest. IMPRESSION: Support Lines: Interval placement of right IJ central venous cath eter tip overlying the cavoatrial junction. Interval placement of a mediastinal drain. Unchanged left chest wall Port-A-Cath with tip overlying the cavoatrial j unction. Lungs and pleura: Minimal left basilar atelectasis. Small left pleural effusion. No pneumothorax.Heart and mediastinum: Stable contours. Additional fin dings: Unchanged kyphoplasty of the midthoracic spine. Left chest wall subcutane ous emphysema. Signed: Jeanette Oviedo MDReport Verified Date/Time: 019 21:55:17 19 09:55 PM [id number] 19:44:00* Test Item Value Reference Range Comments MAGNESIUM (BEAKER) (test ufcu=416) 1.9 mg/dL 1.6-2.6 Specimen moderately hemolyzed BASIC METABOLIC [id number] 19:44:00* Test Item Value Reference Range Comments SODIUM (BEAKER) (test geey=281) 139 meq/L 136-145 POTASSIUM (BEAKER) (test cmip=146) 5.0 meq/L 3.5-5.1 Specimen moderately hemolyzed CHLORIDE (BEAKER) (test rvem=977) 113 meq/L 98-107 CO2 (BEAKER) (test qacx=097) 20 meq/L 22-29 BLOOD UREA NITROGEN (BEAKER) (test sbbm=863) 14 mg/dL 7-21 CREATININE (BEAKER) (test qkap=624) 0.88 mg/dL 0.57-1.25 Specimen moderately hemolyzed GLUCOSE RANDOM (BEAKER) (test jbcz=721) 162 mg/dL 70-105 CALCIUM (BEAKER) (test gchx=919) 8.3 mg/dL 8.4-10.2 EGFR (BEAKER) (test dpsw=4373) 66 mL/min/1.73 sq m ESTIMATED GFR IS NOT ACCURATE CREATININE CLEARANCE IN PREDICTING GLOMERULAR FILTRATION RATE. ESTIMATED GFR IS NOT APPLICABLE FOR DIALYSIS PATIENTS. CBC W/PLT COUNT & AUTO [id number] 19:31:00* Test Item Value Reference Range Comments WHITE BLOOD CELL COUNT (BEAKER) (test ttju=992) 8.2 K/ L 3.5-10.5 RED BLOOD CELL COUNT (BEAKER) (test vogm=963) 3.51 M/ L 3.93-5.22 HEMOGLOBIN (BEAKER) (test rjat=228) 8.2 GM/DL 11.2-15.7 HEMATOCRIT (BEAKER) (test cqpv=319) 27.6 % 34.1-44.9 MEAN CORPUSCULAR VOLUME (BEAKER) (test pgcz=767) 78.6 fL 79.4-94.8 MEAN CORPUSCULAR HEMOGLOBIN (BEAKER) (test vngu=449) 23.4 pg 25.6-32.2 MEAN CORPUSCULAR HEMOGLOBIN CONC (BEAKER) (test kajx=376) 29.7 GM/DL 32.2-35.5 RED CELL DISTRIBUTION WIDTH (BEAKER) (test iabt=342) 18.0 % 11.7-14.4 PLATELET COUNT (BEAKER) (test betr=648) 300 K/CU MM 150-450 MEAN PLATELET VOLUME (BEAKER) (test daga=924) 8.6 fL 9.4-12.3 NUCLEATED RED BLOOD CELLS (BEAKER) (test ktcf=156) 0 /100 WBC 0-0 NEUTROPHILS RELATIVE PERCENT (BEAKER) (test lrpn=551) 90 % LYMPHOCYTES RELATIVE PERCENT (BEAKER) (test vmbt=876) 3 % MONOCYTES RELATIVE PERCENT (BEAKER) (test qett=220) 7 % EOSINOPHILS RELATIVE PERCENT (BEAKER) (test gtck=084) 0 % BASOPHILS RELATIVE PERCENT (BEAKER) (test nhts=487) 0 % NEUTROPHILS ABSOLUTE COUNT (BEAKER) (test angy=716) 7.34 K/ L 1.56-6.13 LYMPHOCYTES ABSOLUTE COUNT (BEAKER) (test woiw=972) 0.28 K/ L 1.18-3.74 MONOCYTES ABSOLUTE COUNT (BEAKER) (test ddly=907) 0.55 K/ L 0.24-0.36 EOSINOPHILS ABSOLUTE COUNT (BEAKER) (test smxl=839) 0.01 K/ L 0.04-0.36 BASOPHILS ABSOLUTE COUNT (BEAKER) (test veei=015) 0.01 K/ L 0.01-0.08 IMMATURE GRANULOCYTES-RELATIVE PERCENT (BEAKER) (test wmpu=2882) 0 % 0-1 CALCIUM, [id number] 17:10:00* Test Item Value Reference Range Comments CALCIUM IONIZED (BEAKER) (test agcq=116) 1.20 mmol/L 1.12-1.27 PH, BLOOD (BEAKER) (test sqev=5226) 7.33 SODIUM NA-STAT [id number] 17:09:00* Test Item Value Reference Range Comments SODIUM (BEAKER) (test ozls=355) 138 meq/L 135-148 POTASSIUM-STAT [id number] 17:09:00* Test Item Value Reference Range Comments POTASSIUM (BEAKER) (test lhrw=699) 4.2 meq/L 3.6-5.5 BLOOD GAS, [id number] 17:09:00* Test Item Value Reference Range Comments PH ARTERIAL (BEAKER) (test wmoa=999) 7.33 7.35-7.45 PCO2 ARTERIAL (BEAKER) (test fvpx=400) 43 mmHg 35-45 PO2 ARTERIAL (BEAKER) (test yyuy=227) 274 mmHg 80-90 O2 SATURATION ARTERIAL (BEAKER) (test owoc=477) 99.6 % 96.0-97.0 HCO3 ARTERIAL (BEAKER) (test ncof=718) 22 mmol/L 21-29 BASE EXCESS ARTERIAL (BEAKER) (test ftix=925) -3.8 mmol/L -2.0-3.0 PATIENT TEMPERATURE (BEAKER) (test gkyz=2276) 37.4 C FIO2 (BEAKER) (test tzxy=9643) 50.0 % GLUCOSE-STAT [id number] 17:09:00* Test Item Value Reference Range Comments GLUCOSE RANDOM (BEAKER) (test toxb=234) 156 mg/dL 70-110 HGB/HCT (H&H) - STAT [id number] 17:09:00* Test Item Value Reference Range Comments HEMOGLOBIN (BEAKER) (test ykjl=855) 9.6 g/dL 12.0-15.0 HEMATOCRIT (BEAKER) (test icvh=971) 28.0 % 36.0-45.0 BLOOD GAS, [id number] 15:07:00* Test Item Value Reference Range Comments PH ARTERIAL (BEAKER) (test urfz=699) 7.37 7.35-7.45 PCO2 ARTERIAL (BEAKER) (test bygl=020) 41 mmHg 35-45 PO2 ARTERIAL (BEAKER) (test dzth=061) 314 mmHg 80-90 O2 SATURATION ARTERIAL (BEAKER) (test dyvz=261) 99.7 % 96.0-97.0 HCO3 ARTERIAL (BEAKER) (test ginj=626) 23 mmol/L 21-29 BASE EXCESS ARTERIAL (BEAKER) (test quus=930) -2.4 mmol/L -2.0-3.0 PATIENT TEMPERATURE (BEAKER) (test frvr=6610) 37.2 C FIO2 (BEAKER) (test licj=8373) 67.0 % GLUCOSE-STAT [id number] 15:07:00* Test Item Value Reference Range Comments GLUCOSE RANDOM (BEAKER) (test vicz=514) 156 mg/dL 70-110 HGB/HCT (H&H) - STAT [id number] 15:07:00* Test Item Value Reference Range Comments HEMOGLOBIN (BEAKER) (test oaju=610) 9.5 g/dL 12.0-15.0 HEMATOCRIT (BEAKER) (test rxut=497) 28.0 % 36.0-45.0 CALCIUM, [id number] 15:07:00* Test Item Value Reference Range Comments CALCIUM IONIZED (BEAKER) (test rvgb=377) 1.13 mmol/L 1.12-1.27 PH, BLOOD (BEAKER) (test ivdw=5884) 7.37 SODIUM NA-STAT [id number] 15:06:00* Test Item Value Reference Range Comments SODIUM (BEAKER) (test qsie=024) 139 meq/L 135-148 POTASSIUM-STAT [id number] 15:06:00* Test Item Value Reference Range Comments POTASSIUM (BEAKER) (test elpn=038) 4.5 meq/L 3.6-5.5 BLOOD GAS, [id number] 13:17:00* Test Item Value Reference Range Comments PH ARTERIAL (BEAKER) (test qvti=754) 7.42 7.35-7.45 PCO2 ARTERIAL (BEAKER) (test ablf=831) 39 mmHg 35-45 PO2 ARTERIAL (BEAKER) (test mpxi=243) 347 mmHg 80-90 O2 SATURATION ARTERIAL (BEAKER) (test krzx=931) 99.8 % 96.0-97.0 HCO3 ARTERIAL (BEAKER) (test tkuo=933) 24 mmol/L 21-29 BASE EXCESS ARTERIAL (BEAKER) (test pbxl=627) -0.2 mmol/L -2.0-3.0 PATIENT TEMPERATURE (BEAKER) (test ojzg=9161) 36.4 C FIO2 (BEAKER) (test rfuq=5921) 70.0 % HGB/HCT (H&H) - STAT [id number] 13:17:00* Test Item Value Reference Range Comments HEMOGLOBIN (BEAKER) (test nipw=610) 9.4 g/dL 12.0-15.0 HEMATOCRIT (BEAKER) (test wcko=163) 28.0 % 36.0-45.0 GLUCOSE-STAT [id number] 13:16:00* Test Item Value Reference Range Comments GLUCOSE RANDOM (BEAKER) (test eqta=663) 109 mg/dL 70-110 SODIUM NA-STAT [id number] 13:16:00* Test Item Value Reference Range Comments SODIUM (BEAKER) (test hwed=963) 138 meq/L 135-148 POTASSIUM-STAT [id number] 13:16:00* Test Item Value Reference Range Comments POTASSIUM (BEAKER) (test tijo=018) 4.0 meq/L 3.6-5.5 CALCIUM, [id number] 13:14:00* Test Item Value Reference Range Comments CALCIUM IONIZED (BEAKER) (test cguo=648) 1.21 mmol/L 1.12-1.27 PH, BLOOD (BEAKER) (test ryim=6692) 7.41 BLOOD GAS, [id number] 11:11:00* Test Item Value Reference Range Comments PH ARTERIAL (BEAKER) (test vldr=028) 7.37 7.35-7.45 PCO2 ARTERIAL (BEAKER) (test ygzs=699) 47 mmHg 35-45 PO2 ARTERIAL (BEAKER) (test fsls=387) 444 mmHg 80-90 O2 SATURATION ARTERIAL (BEAKER) (test fqyk=492) 99.8 % 96.0-97.0 HCO3 ARTERIAL (BEAKER) (test zrfz=627) 27 mmol/L 21-29 BASE EXCESS ARTERIAL (BEAKER) (test yzkm=947) 0.9 mmol/L -2.0-3.0 PATIENT TEMPERATURE (BEAKER) (test kecx=4999) 35.3 C FIO2 (BEAKER) (test nsxz=4403) 100.0 % HGB/HCT (H&H) - STAT [id number] 11:11:00* Test Item Value Reference Range Comments HEMOGLOBIN (BEAKER) (test aedr=761) 9.9 g/dL 12.0-15.0 HEMATOCRIT (BEAKER) (test jnfz=119) 29.0 % 36.0-45.0 CALCIUM, [id number] 11:07:00* Test Item Value Reference Range Comments CALCIUM IONIZED (BEAKER) (test hskz=213) 1.16 mmol/L 1.12-1.27 PH, BLOOD (BEAKER) (test fpoe=2925) 7.35 GLUCOSE-STAT [id number] 11:06:00* Test Item Value Reference Range Comments GLUCOSE RANDOM (BEAKER) (test zmjv=652) 109 mg/dL 70-110 SODIUM NA-STAT [id number] 11:06:00* Test Item Value Reference Range Comments SODIUM (BEAKER) (test remz=922) 138 meq/L 135-148 POTASSIUM-STAT [id number] 11:06:00* Test Item Value Reference Range Comments POTASSIUM (BEAKER) (test ldkj=261) 4.0 meq/L 3.6-5.5 POCT-GLUCOSE [id number] 06:15:00* Test Item Value Reference Range Comments POC-GLUCOSE METER (BEAKER) (test vfqz=5518) 91 mg/dL 70-110 TESTED AT [facility] [address] [facility] [address] RAD, CHEST, 2 [id number] 15:36:00Reason for exam:->Hiatal HerniaFINAL REPORT CHEST, AP AND LATERAL. HISTORY: Internal hernia. COMPARISON: 08/10/2011. Impression: There is a left chest port with catheter tip terminating at the cavoatrial junction. The trachea is midline. There is stable mild elevation of the right hemidiaphragm. There is no evidence for focal c onsolidation, pneumothorax, or significant pleural effusion. Vertebral augmentat ion changes noted within the mid thoracic spine. No acute osseous abnormality is identified. The surrounding soft tissues are unremarkable. Signed: Jesus Clementeort Verified Date/Time: 08/26/2018 15:36:00 Reading Location: [facility] Consult Reading Room Electronically signed by: JESUS CLEMENTE MD on 03:36 PM COMPREHENSIVE METABOLIC [id number] 15:02:00* Test Item Value Reference Range Comments TOTAL PROTEIN (BEAKER) (test uvuj=338) 8.0 gm/dL 6.0-8.3 ALBUMIN (BEAKER) (test shpg=6871) 3.8 g/dL 3.5-5.0 ALKALINE PHOSPHATASE (BEAKER) (test ewxv=537) 194 U/L 40-150 BILIRUBIN TOTAL (BEAKER) (test mgxz=072) 0.2 mg/dL 0.2-1.2 SODIUM (BEAKER) (test wpjb=513) 142 meq/L 136-145 POTASSIUM (BEAKER) (test tfla=525) 4.2 meq/L 3.5-5.1 CHLORIDE (BEAKER) (test rlmx=381) 105 meq/L 98-107 CO2 (BEAKER) (test gkot=216) 29 meq/L 22-29 BLOOD UREA NITROGEN (BEAKER) (test inuf=165) 14 mg/dL 7-21 CREATININE (BEAKER) (test skbq=732) 1.06 mg/dL 0.57-1.25 GLUCOSE RANDOM (BEAKER) (test xjni=441) 91 mg/dL 70-105 CALCIUM (BEAKER) (test jqpv=229) 10.0 mg/dL 8.4-10.2 AST (SGOT) (BEAKER) (test xkdt=956) 17 U/L 5-34 ALT (SGPT) (BEAKER) (test odrm=131) 10 U/L 6-55 EGFR (BEAKER) (test vonw=8563) 53 mL/min/1.73 sq m ESTIMATED GFR IS NOT ACCURATE CREATININE CLEARANCE IN PREDICTING GLOMERULAR FILTRATION RATE. ESTIMATED GFR IS NOT APPLICABLE FOR DIALYSIS PATIENTS. [id number] 14:46:00* Test Item Value Reference Range Comments PROTIME (BEAKER) (test flyf=762) 12.9 seconds 11.9-14.2 INR (BEAKER) (test alpi=269) 1.0 <=5.9 PARTIAL THROMBOPLASTIN TIME (BEAKER) (test rqft=716) 31.4 seconds 22.5-36.0 Effective 07/07/2018: PT Reference Range ChangeNew: 11.9-14.2 Previous: 11.7-14. 7RECOMMENDED COUMADIN/WARFARIN INR THERAPY RANGESSTANDARD DOSE: 2.0-3.0 Include s: PROPHYLAXIS for venous thrombosis, systemic embolization; TREATMENT for venou s thrombosis and/or pulmonary embolus.HIGH RISK: Target INR is 2.5-3.5 for patie nts wiht mechanical heart valves.CBC W/PLT COUNT & AUTO [id number] 14:45:00* Test Item Value Reference Range Comments WHITE BLOOD CELL COUNT (BEAKER) (test wzlc=725) 8.3 K/ L 3.5-10.5 RED BLOOD CELL COUNT (BEAKER) (test hoxi=312) 4.69 M/ L 3.93-5.22 HEMOGLOBIN (BEAKER) (test sqiy=005) 10.9 GM/DL 11.2-15.7 HEMATOCRIT (BEAKER) (test rbkz=524) 36.2 % 34.1-44.9 MEAN CORPUSCULAR VOLUME (BEAKER) (test hmjd=374) 77.2 fL 79.4-94.8 MEAN CORPUSCULAR HEMOGLOBIN (BEAKER) (test nfeu=861) 23.2 pg 25.6-32.2 MEAN CORPUSCULAR HEMOGLOBIN CONC (BEAKER) (test jzdv=567) 30.1 GM/DL 32.2-35.5 RED CELL DISTRIBUTION WIDTH (BEAKER) (test vmuv=427) 18.4 % 11.7-14.4 PLATELET COUNT (BEAKER) (test wkpc=513) 456 K/CU MM 150-450 MEAN PLATELET VOLUME (BEAKER) (test bema=731) 8.8 fL 9.4-12.3 NUCLEATED RED BLOOD CELLS (BEAKER) (test fflh=465) 0 /100 WBC 0-0 NEUTROPHILS RELATIVE PERCENT (BEAKER) (test mzja=636) 67 % LYMPHOCYTES RELATIVE PERCENT (BEAKER) (test mfld=744) 23 % MONOCYTES RELATIVE PERCENT (BEAKER) (test plqu=852) 7 % EOSINOPHILS RELATIVE PERCENT (BEAKER) (test teff=024) 3 % BASOPHILS RELATIVE PERCENT (BEAKER) (test jiqo=946) 1 % NEUTROPHILS ABSOLUTE COUNT (BEAKER) (test ujtx=550) 5.54 K/ L 1.56-6.13 LYMPHOCYTES ABSOLUTE COUNT (BEAKER) (test lkri=238) 1.90 K/ L 1.18-3.74 MONOCYTES ABSOLUTE COUNT (BEAKER) (test iucz=456) 0.55 K/ L 0.24-0.36 EOSINOPHILS ABSOLUTE COUNT (BEAKER) (test rtjy=636) 0.21 K/ L 0.04-0.36 BASOPHILS ABSOLUTE COUNT (BEAKER) (test urjm=587) 0.04 K/ L 0.01-0.08 IMMATURE GRANULOCYTES-RELATIVE PERCENT (BEAKER) (test gcho=2815) 0 % 0-1 POCT-HEMOGLOBIN [id number] 13:05:00* Test Item Value Reference Range Comments POC-HEMOGLOBIN METER (BEAKER) (test zpmw=7843) 10.0 g/dL 12.0-15.0 TESTED AT [place] [address] POCT-GLUCOSE [id number] 13:05:00* Test Item Value Reference Range Comments POC-GLUCOSE METER (BEAKER) (test sptq=4165) 90 mg/dL 70-110 TESTED AT [address] RENAL RETROPERITONEAL [id number] 10:58:00 [place] [address] Patient Name: SNEHA CARLISLE MR #: [id number] : 1960 Age/Sex: 58/F Req #: [id number] Adm Physician: CODEY CARSON MD Ordered by: DARCY BERG MD Report #: [id number] Location: MED/SURG2 Room/Bed: 200 Procedure: [id number] US/ US RENAL RETROPERITONEAL COMP Exam Date: 05/21/18 Ex am Time: 1028 REPORT STATUS: Signed EXAM: Renal Ultrasound INDICATION: Urinary tract infection. CO MPARISON: None TECHNIQUE: Transverse and longitudinal images of the kidney s and bladder were obtained. FINDINGS: Right Kidney: Statu s post right nephrectomy. No evidence of mass in the nephrectomy bed. Left Kidney: Length: 11.1 cm Appearance: Normal echogenicity. Collecting sys tem: No hydronephrosis Stones: None Cyst/Mass: None Bladder: Unremar kable in appearance. Left ureteral jet is present. IMPRESSION: Status pos t right nephrectomy. Unremarkable sonographic appearance of the left kidney. Signed by: Dr. Manuel Colón MD on 05/21/2018 11:00 AM Dictated By: OLEKSANDR COLÓN MD 1100 Transcribed By: AMANDA on 05/21/18 1100 COPY TO: DARCY BERG MD CT ABDOMEN/PELVIS [id number] 17:19:00 [place] [address] Patient Name: SNEHA CARLISLE MR #: [id number] : 1960 Age/Sex: 58/F Req #: [id number] Adm Physician: Ordered by: LEO SAHNI MD Report #: [id number] Location: CT Room/Bed: Procedure: [id number] CT/CT ABDOMEN/PELVIS WO Exam Date: 05/18/18 Exam Time: 14 55 REPORT STATUS: Signed EXAM: C T Abdomen and Pelvis without contrast INDICATION: Urinary tract infection , history of left-sided renal stones. COMPARISON: Report from CT thoracic spine dated 02/28/2015, although images are not available for review at the octavio e of this dictation. TECHNIQUE: Abdomen and pelvis were scanned utilizing a multidetector helical scanner from the lung base to the pubic symphysis witho ut administration of IV contrast. Absence of intravenous contrast decreases se nsitivity for detection of focal lesions and vascular pathology. Coronal and s agittal reformations were obtained. Renal stone protocol was performed. RADIATION DOSE: Total DLP: 454.7 mGy*cm Dose modulation, iterat shu reconstruction, and/or weight based adjustment of the mA/kV was utilized t o reduce the radiation dose to as low as reasonably achievable. COMPLICATIONS: None FINDINGS: LINES and TUBES: None. LOWER TH ORAX: Patchy dependent atelectasis. HEPATOBILIARY: No evidence of fo murphy hepatic lesions. No biliary ductal dilation. Status post cholecystectomy. SPLEEN: No splenomegaly. PANCREAS: No evidence of focal masses or du ctal dilatation. ADRENALS: No adrenal nodules KIDNEYS/URETERS: S tatus post right nephrectomy. No hydronephrosis. No cystic or solid mass lesio ns. No evidence of renal stone. GI TRACT: There is dilation of the distal esophagus. There are postsurgical changes involving the stomach with possible wall thickening (series 3, image 18). There is a large hiatal hernia. There is a jejunojejunal anastomosis within the mid abdomen. No evidence of bowel obst ruction. Per the patient, the appendix is surgically absent. PELVIC ORGAN S/BLADDER: Status post hysterectomy. Streak artifact limits evaluation of the pelvis including the left distal ureter and bladder. LYMPH NODES: No lympha denopathy. VESSELS: There are scattered atherosclerotic calcifications in t he aorta and branch vessels. PERITONEUM / RETROPERITONEUM: No free air o r fluid. BONES/SOFT TISSUES: Diffuse osteopenia. Mild age-indeterminate los s of vertebral body height at L2 and L4. 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 There are postsurgic al changes involving the anterior abdominal wall with likely dystrophic calc ifications. IMPRESSION: No evidence of renal stone or hydronephrosis. O f note, surgical hardware streak artifact limits evaluation for distal uretera l stone in the pelvis, however there is no evidence of hydronephrosis. Hi atal hernia with postsurgical changes of the stomach with associated possible gastric wall thickening. Dilation of the distal esophagus. Suggest endoscopy f or further evaluation. Mild age indeterminate loss of vertebral body height at L2 and L4. Signed by: Dr. Manuel Colón MD on 05/18/2018 5:36 PM Dic tated By: MANUEL COLÓN MD 173 [id number] Transcribed By: AMANDA on 05/18/18 1736 COPY TO: LEO SAHNI MD MAMMOGRAPHY DIGITAL SCR [id number] 15:27:00 [place] [address] Patient Name: SNEHA CARLISLE MR #: [id number] : 1960 Age/Sex: 57/F Req #: [id number] Adm Physician: Ordered by: JOSIE HERNANDEZ DO Report #: [id number] Location: MAMMO Room/Bed: Procedure: [id number] MG/MAMMOGRAPHY DIGITAL SCR B ILAT Exam Date: 07/07/17 Exam Time: 1405 REPOR T STATUS: Signed #[id number] - [id number] #BILATERAL DIGITAL SCREENING MAMMOGRAM WITH CAD: 07/07/2017 CLINICAL: Routine screening. Comparison i s made to exam dated: 06/02/2016 mammogram - [facility]. Current study contains 4 films. The tissue of both breasts is predomina ntly fatty. Current study was also evaluated with a Computer Aided Detection (CAD) system. No significant masses, calcifications, or other findings are seen in either breast. Port in the left chest wall has been removed. There i s now probably a port on the right side. There has been no significant inter kassandra change. IMPRESSION: BENIGN There is no mammographic evidence of malig barbara. A 1 year screening mammogram is recommended. The patient will be noti fied by letter of the results. Boy Marsh Jr., D.O. cw/: 07/18/2017 11:56:27 Application Development Liaison: Kamille CHUNG)(Gustavo), [facility] letter sent: Compared to Prior B9 Mammogram BI- RADS: 2 Benign Dictated By: BOY MARSH DO 1156 Transcribed By: KRISTOFER on 07/18/17 1156 LEAD NURSE Y TO: JOSIE HERNANDEZ DO US RENAL RETROPERITONEAL COMP [place] [address] Patient Name: SNEHA CARLISLE MR #: [id number] : 1960 Age/Sex: 56/F Req #: [id number] Adm Physician: Ordered by: JOSIE HERNANDEZ DO Report #: [id number] Location: US Room/Bed: Procedure: [id number] US/US RENAL RETROPERITONEAL COM P Exam Date: 12/05/16 Exam Time: 1602 REPORT S TATUS: Signed PROCEDURE: US RETROPERITONEAL ( KIDNEY ). COMPARISON: CT abdomen/pelvis 12/23/13. INDICATIONS: cystitis and hematuria TECHNIQUE : Rogers-scale and color sonographic images of the bilateral kidneys and bladde r where obtained in transverse and longitudinal planes. [...] images of the liver demonstrate no focal abnormalit y. CONCLUSION: Normal sonographic appearance of the left kidney. Right nephrectomy. No sonographic abnormalities of the bladder. Dictat ed by: Meghan Jones M.D. on 12/05/2016 at 17:38 Electronically appro gris by: Meghan Jones M.D. on 12/05/2016 at 17:38 Dictated By: MEGHAN JONES MD 37 COPY TO: JOSIE HERNANDEZ DO MAMMOGRAPHY DIGITAL DX BILAT [place] [address] Patient Name: SNEHA CARLISLE MR #: [id number] : 1960 Age/Sex: 56/F Req #: [id number] Adm Physician: Ordered by: HERNANDEZ ANDREW DO Report #: [id number] Location: MAMMO Room/Bed: Procedure: [id number] MG/MAMMOGRAPHY DIGITAL DX [place] AT Exam Date: 06/02/16 Exam Time: 1125 REPORT STATUS: Signed THIS REPORT HAS BEEN AMENDED. #[id number] - [id number] # BILATERAL DIGITAL DIAGNOSTIC MAMMOGRAM WITH CAD: 06/02/2016 No prior exams were available for comparison. Current study contains 5 films. The tissue of andrew th breasts is predominantly fatty. Current study was also evaluated with a C ReadyForZerouter Aided Detection (CAD) system. There is an implantable port present ove rlying the left upper breast/chest wall. No significant masses, calcificatio ns, or other findings are seen in either breast. IMPRESSION: BENIGN The re is no mammographic evidence of malignancy. A 1 year screening mammogram is r ecommended. The patient will be notified by letter of the results. Boy Milford Jr. D.O. cw/:06/02/2016 13:08:38 Imaging Technol ogist: Kamille CHUNG)(M), [facility] letter sent : Normal Exam Mammogram BI-RADS: 2 Benign AMENDMENT: 09/26/2016 Boy Marsh Jr., D.O. - Comparison to outside mammograms dated 06/08/2015 from [facility] is now possible as they have become availab le. There is no significant interval change from the old studies. There is no evidence of malignancy. Amended BI-RADS: 2 Benign letter sent: Compar ed to Prior B9 Dictated By: BOY MARSH DO 1308 Transcribed By: KRISTOFER on 09/26/16 1425 COPY TO: JORGE HERNANDEZ DO
[2018-10-11] MEDS ORDERED: DIPHENHYDRAMINE HCL INJ 50 MG/ML VIAL IV ONE (16:45)
[2018-10-11] MEDS ORDERED: ONDANSETRON HCL INJ 2MG/ML 2ML 2 MG/ML VIAL IV STA (17:10)
[2018-10-11] MEDS ORDERED: DIATRIZOATE MEGL/DIATRIZOA SOD 30 ML BTL PO ONE (17:13)
[2018-10-11] MEDS ORDERED: ONDANSETRON HCL INJ 2MG/ML 2ML 2 MG/ML VIAL ONE (17:20)
[2018-10-11] MEDS ORDERED: DIPHENHYDRAMINE HCL INJ 50 MG/ML VIAL ONE (17:20)
[2018-10-11] MEDS ORDERED: POTASSIUM CHLORIDE 20MEQ/100ML 200 ML ONE (17:33)
[2018-10-11] MEDS ORDERED: POTASSIUM CHLORIDE 20MEQ/100ML 100 ML IV ONE ×2 (17:45→19:45)
--- NOTE | 2018-10-11 18:40 | NUR ---
Urine culture collected.
--- NOTE | 2018-10-11 18:48 | Diagnostic Imaging Report ---
EXAM: CT of the abdomen and pelvis WITHOUT contrast HISTORY: Vomiting, diarrhea, rule out obstruction COMPARISON: CT of the pelvis May 18, 2018 TECHNIQUE: The abdomen and pelvis were scanned utilizing a multidetector helical scanner. Coronal and sagittal reformats are available. PROTOCOL: Routine IV CONTRAST: None, which limits sensitivity and specificity of evaluation of the soft tissues and vascular structures. ORAL CONTRAST: Dilute Gastrografin. RADIATION DOSE: Total DLP: 649.53 mGy*cm Estimated effective dose: (DLP x 0.015 x size factor) Dose modulation, iterative reconstruction, and/or weight based adjustment of the mA/kV was utilized to reduce the radiation dose to as low as reasonably achievable. COMPLICATIONS: None FINDINGS: LOWER THORAX: Small left pleural effusion. Mild left basilar atelectasis. HEPATOBILIARY: Diffusely decreased attenuation. No definite focal hepatic lesions. No biliary ductal dilatation. The gallbladder is not visualized, correlate for prior cholecystectomy. SPLEEN: No splenomegaly. PANCREAS: No focal masses or ductal dilatation. ADRENALS: No adrenal nodule. KIDNEYS/URETERS: Post surgical changes at the right renal fossa, compatible with prior right nephrectomy. No left hydronephrosis, stones, or solid mass lesion identified. PELVIC ORGANS/BLADDER: The urinary bladder is decompressed. PERITONEUM / RETROPERITONEUM: No free air or fluid. GI TRACT: Postsurgical changes of the stomach and multiple areas of small bowel. Radiopaque contrast within the proximal to mid small bowel. The mid small bowel wall appears diffusely thickened, up to 3.9 cm. Marked luminal narrowing in one of the segments of wall thickening (axial image 45). The more distal small bowel and colon is relatively decompressed. LYMPH NODES: No pathologically enlarged lymph nodes. VESSELS: Mild scattered atherosclerotic vascular calcifications. BONES and JOINTS: Diffusely decreased mineralization of the osseous structures limits bone detail. Right convex curvature of the lumbar spine. Status post total left hip arthroplasty. Partially visualized right femoral fixation hardware. SOFT TISSUES: Ventral midline abdominal wall incision with a coarse calcifications. IMPRESSION: 1. Mid small bowel inflammatory changes superimposed upon chronic postsurgical changes, results in findings compatible with partial small bowel obstruction. 2. Small left pleural effusion and bibasilar atelectasis. 3. Hepatic steatosis. 4. Diffuse osseous demineralization. Signed by: Dr. Sergio Conner D.O., M.M.M. on 10/11/2018 6:44 PM
--- NOTE | 2018-10-11 19:43 | NUR ---
Report to [facility]
== END 2018-10-11 20:35 | disposition other institution (70) ==
LOC: FSED 16:14
DX: R11.2 Nausea with vomiting, unspecified (principal); E87.6 Hypokalemia; K56.609 Unspecified intestinal obstruction, unspecified as to partial versus complete obstruction; J90 Pleural effusion, not elsewhere classified; J98.11 Atelectasis; K76.0 Fatty (change of) liver, not elsewhere classified; M89.9 Disorder of bone, unspecified
CPT/HCPCS: 74176; 80053; 81003; 85025; 87086; 87186; 96374; 96375; 99284; J1200; J2405; J3480

== ENCOUNTER → 2018-12-10 | Outpatient (CLI) | payer MEDICARE, BC ==
--- NOTE | 2018-12-10 16:16 | Diagnostic Imaging Report ---
CT BRAIN WO HISTORY: Headache COMPARISON: Report from MRI of the brain dated 09/23/[address] dated 09/22/2011 TECHNIQUE: Noncontrast axial scans were obtained from skull base to the vertex. Coronal and sagittal reconstructions obtained from the axial data. One or more of the following dose reduction techniques were used: Automated exposure control, adjustment of the mA and/or kV according to patient size, and/or utilization of iterative reconstruction technique. DISCUSSION: Scalp/Skull: Unremarkable. Brain sulci: Appropriate for patient's age. Ventricles: Normal in size and configuration. No hydrocephalus. Extra-axial spaces: No masses or fluid collections. Mild carotid siphon calcifications are present. Parenchyma: No abnormal densities. No mass, hemorrhage, or large vascular territory acute infarct. Dural sinuses: No abnormal densities. Sellar/Suprasellar region: Intact. Skull base: Intact. Incidental findings: None. IMPRESSION: No acute intracranial abnormalities. Signed by: Dr. Abdi Figueroa M.D. on 12/10/2018 4:13 PM
== END ==
LOC: CT 15:42
PROVIDERS: ATTEND Family Medicine
DX: G44.52 New daily persistent headache (NDPH) (principal)
CPT/HCPCS: 70450

== ENCOUNTER → 2018-12-17 | Outpatient (CLI) | payer MEDICARE, BC ==
[~2018-12-17] MED LIST changes: +DIATRIZOATE MEGL/DIATRIZOA SOD 30 ML BTL PO ONE
--- NOTE | 2018-12-17 17:50 | Diagnostic Imaging Report ---
EXAM: CT Abdomen and Pelvis WITHOUT intravenous contrast INDICATION: Intestinal malabsorption COMPARISON: CT abdomen and pelvis of 05/18/2018 TECHNIQUE: Abdomen and pelvis were scanned utilizing a multidetector helical scanner from the lung base to the pubic symphysis without administration of IV contrast. Coronal and sagittal reformations were obtained. IV CONTRAST: None ORAL CONTRAST: Gastrografin COMPLICATIONS: None RADIATION DOSE: Total DLP: 685.9 mGy*cm Dose modulation, iterative reconstruction, and/or weight based adjustment of the mA/kV was utilized to reduce the radiation dose to as low as reasonably achievable. FINDINGS: LOWER THORAX: Distal tip of catheter or lead terminates in the right atrium. No lung base consolidation. Patulous distal esophagus containing pooled oral contrast material. HEPATOBILIARY: No focal hepatic lesions. No biliary ductal dilatation. The gallbladder appears unremarkable. Status post cholecystectomy. SPLEEN: No splenomegaly. PANCREAS: No focal masses or ductal dilatation. ADRENALS: No adrenal nodules. KIDNEYS/URETERS: Status post right nephrectomy. No left renal calculus or hydronephrosis or solid mass lesion. PELVIC ORGANS/BLADDER: Status post hysterectomy. PERITONEUM / RETROPERITONEUM: No free air or fluid. LYMPH NODES: No lymphadenopathy. VESSELS: Scattered atherosclerotic calcifications of the nonaneurysmal abdominal aorta and major branches. GI TRACT: Status post gastrectomy and multiple bowel resections and anastomoses. No abnormal bowel thickening. No bowel obstruction. BONES AND SOFT TISSUES: Diffuse osteopenia. No acute osseous injury. No suspicious lytic or blastic lesions. Degenerative changes of the visualized spine. Status post bilateral total hip replacements. Bilateral gluteal injection granulomas. IMPRESSION: No acute findings in the abdomen or pelvis. Extensive postoperative changes of prior gastrectomy, bowel resection and anastomosis, and right nephrectomy. Signed by: Alison Mi MD on 12/17/2018 5:47 PM
== END ==
LOC: CT 15:01
PROVIDERS: ATTEND Internal Medicine Infectious Disease
DX: K90.9 Intestinal malabsorption, unspecified (principal); N39.0 Urinary tract infection, site not specified; D68.61 Antiphospholipid syndrome
CPT/HCPCS: 74176

== ENCOUNTER → 2020-01-16 | Outpatient (CLI) | payer MEDICARE, BC ==
[~2020-01-16] MED LIST changes: -DIATRIZOATE MEGL/DIATRIZOA SOD 30 ML BTL PO ONE
== END ==
LOC: CT 17:42
PROVIDERS: ATTEND Family Medicine
DX: N20.0 Calculus of kidney (principal)
CPT/HCPCS: 74176